=== PATIENT | female | born 1930 | race African-American/Black ===

== ENCOUNTER 2017-01-16 12:58 | Inpatient (IN) | payer OTHER ==
[~2017-01-16] VITALS: Ht 154.9 cm; Wt 88.8 kg
[~2017-01-16 12:58] MED LIST: AMLO10TA2 PO; ASPI-482 PO; CALC0.25 PO; CLON1TAB PO; FERR-26 PO; FURO-68 PO; HYDR-2666 PO; LOSA100T6 PO; LOVA10TA PO; LOVA40TA2 PO; METO-269 PO; SEVE800T9 PO; VIT1TABL71 PO
--- NOTE | 2017-01-16 14:32 | PHYS DOC ---
Past Medical History Past Medical History: Anemia, Diabetes-Type II, High Cholesterol, Hypertension , Renal Failure Additional Past Medical Histor: PVD,OBESITY Past Surgical History: Other Additional Past Surgical Histo: NON CANCER "OVARIAN MASS" , dialysis shunt placement Alcohol Use: None Drug Use: None Adult General Chief Complaint Chief Complaint: DIALYSIS PROBLEM HPI HPI Patient is a 86 year old female who presents with dialysis graft malfunction this week. She had problems at dialysis 4 days ago and was told to get it checked. She notes having problems again 2 days ago. She was unable to make it to outpatient nephrology clinic, so her family brought her here today. She otherwise has no complaints. She denies extremity pain or swelling, chest pain , dyspnea, nausea or vomiting, fever or chills, abdominal pain, dizziness, diarrhea. Review of Systems Review of Systems Constitutional: Denies fever or chills [] Eyes: Denies change in visual acuity, redness, or eye pain [] HENT: Denies nasal congestion or sore throat [] Respiratory: Denies cough or shortness of breath [] Cardiovascular: No additional information not addressed in HPI [] GI: Denies abdominal pain, nausea, vomiting, bloody stools or diarrhea [] : Denies dysuria or hematuria [] Musculoskeletal: Denies back pain or joint pain [] Integument: Denies rash or skin lesions [] Neurologic: Denies headache, focal weakness or sensory changes [] Endocrine: Denies polyuria or polydipsia [] Current Medications Current Medications Current Medications Medications (Trade) Dose Ordered Sig/[facility] Start Time Stop Time Status Last Admin Dose Admin Heparin Sodium (Porcine) (Heparin Sodium) 2,500 unit 1X ONCE 01/16/17 15:45 01/16/17 15:46 DC 01/16/17 16:10 2,500 UNIT Heparin Sodium/ Sodium Chloride 60 unit 1X ONCE 01/16/17 15:45 01/16/17 15:46 DC 01/16/17 16:11 60 UNIT Lidocaine/Sodium Bicarbonate (Buffered Lidocaine 1%) 3 ml 1X ONCE 01/16/17 15:45 01/16/17 15:46 DC 01/16/17 16:11 3 ML Magnesium Sulfate/ Dextrose (Magnesium Sulfate PREMIX 2GM) 50 ml @ 25 mls/hr PRN DAILY PRN 01/16/17 15:30 Allergies Allergies Allergies Coded Allergies Type Severity Reaction Last Updated Verified No Known Drug Allergies 01/03/16 No Physical Exam Physical Exam Constitutional: Well developed, well nourished, no acute distress, non-toxic appearance. [] HENT: Normocephalic, atraumatic, bilateral external ears normal, oropharynx moist, nose normal. [] Eyes: PERRLA, EOMI. [] Neck: Normal range of motion, supple. [] Cardiovascular:Heart rate regular rhythm [] Lungs & Thorax: Bilateral breath sounds clear to auscultation [] Abdomen: Bowel sounds normal, soft, no tenderness. [] Skin: Warm, dry, no erythema, no rash. [] Back: Normal range of motion. [] Extremities: No tenderness, ROM intact. Left forearm dialysis graft with no audible or palpable movement. [] Neurologic: Alert and oriented X 3, normal motor function, normal sensory function, no focal deficits noted. [] Psychologic: Affect normal, judgement normal, mood normal. [] Current Patient Data Vital Signs Vital Signs Date Time Temp Pulse Resp B/P Pulse Ox O2 Delivery O2 Flow Rate FiO2 01/16/17 13:51 193/80 Room Air 01/16/17 13:10 96.8 71 18 96 96.8 Lab Values Laboratory Tests Test 01/16/17 15:05 White Blood Count 6.6x10^3/uL (4.0-11.0) Red Blood Count 4.35x10^6/uL (3.50-5.40) Hemoglobin 12.3g/dL (12.0-15.5) Hematocrit 38.1% (36.0-47.0) Mean Corpuscular Volume 88fL (79-100) Mean Corpuscular Hemoglobin 28pg (25-35) Mean Corpuscular Hemoglobin Concent 32g/dL (31-37) Red Cell Distribution Width 25.0% (11.5-14.5) H Platelet Count 343x10^3/uL (140-400) Neutrophils (%) (Auto) 61% (31-73) Lymphocytes (%) (Auto) 24% (24-48) Monocytes (%) (Auto) 10% (0-9) H Eosinophils (%) (Auto) 3% (0-3) Basophils (%) (Auto) 2% (0-3) Neutrophils # (Auto) 4.0x10^3uL (1.8-7.7) Lymphocytes # (Auto) 1.6x10^3/uL (1.0-4.8) Monocytes # (Auto) 0.7x10^3/uL (0.0-1.1) Eosinophils # (Auto) 0.2x10^3/uL (0.0-0.7) Basophils # (Auto) 0.1x10^3/uL (0.0-0.2) Platelet Estimate Adequate (ADEQUATE) Polychromasia Slight Anisocytosis Mod Target Cells Mod Jeni Cells Few Schistocytes Few Prothrombin Time 12.9SEC (11.7-14.0) Prothrombin Time INR 1.0 (0.8-1.1) PTT 33SEC (24-38) Sodium Level 136mmol/L (136-145) Potassium Level 5.6mmol/L (3.5-5.1) H Chloride Level 95mmol/L (98-107) L Carbon Dioxide Level 28mmol/L (21-32) Anion Gap 13 (6-14) Blood Urea Nitrogen 102mg/dL (7-20) H Creatinine 11.0mg/dL (0.6-1.0) H Estimated GFR (Cockcroft-Gault) 4.0 Glucose Level 94mg/dL (70-99) Calcium Level 9.1mg/dL (8.5-10.1) Laboratory Tests 01/16/17 15:05 Laboratory Tests 01/16/17 15:05 Course & Med Decision Making Course & Med Decision Making Pertinent Labs and Imaging studies reviewed. (See chart for details) She has mild hyperkalemia, but labs are otherwise unremarkable. Discussed case with Dr. Garrison, nephrology, who recommends admission with IR consultation for graft examination. Discussed case with Dr. Rivera, who will admit. Dragon Disclaimer Dragon Disclaimer This electronic medical record was generated, in whole or in part, using a voice recognition dictation system. Departure Departure Impression: Primary Impression: AV graft malfunction Additional Impressions: ESRD (end stage renal disease) on dialysis Hyperkalemia Disposition: ADMITTED INPATIENT Condition: STABLE Referrals: URMILA HAGER MD (PCP) Problem Qualifiers Primary Impression: AV graft malfunction Encounter type: initial encounter Qualified Code: T82.510A - Breakdown ( mechanical) of surgically created arteriovenous fistula, initial encounter WHITE,J. CATALINA MD Jan 16, 2017 14:32
[2017-01-16 15:14] LABS: BASO # 0.1 x10^3/uL (0.0-0.2); BASO % 2 % (0-3); EOS % 3 % (0-3); HEMATOCRIT 38.1 % (36.0-47.0); HEMOGLOBIN 12.3 g/dL (12.0-15.5); LYMPH # 1.6 x10^3/uL (1.0-4.8); LYMPH % 24 % (24-48); MEAN CORPUSCULAR HEMOGLOBIN 28 pg (25-35); MEAN CORPUSCULAR HGB CONC 32 g/dL (31-37); MEAN CORPUSCULAR VOLUME 88 fL (79-100); MONO % 10 % (0-9); NEUT % 61 % (31-73); PLATELET COUNT 343 x10^3/uL (140-400); RED BLOOD COUNT 4.35 x10^6/uL (3.50-5.40); WHITE BLOOD COUNT 6.6 x10^3/uL (4.0-11.0)
--- NOTE | 2017-01-16 15:23 | PDOC2 ---
CONSULT Date of Consult Date of Consult DATE: 01/16/17 TIME: 15:15 Reason for Consult Reason for Consult: ESRD and Clotted/ non-functional AV Access Referring Physician Referring Physician: ANAIS Identification/Chief Complaint Chief Complaint none from pt Problems: Source Source: Caregiver, Chart review, Patient History of Present Illness Reason for Visit: as dictated Past Medical History Cardiovascular: HTN, Hyperlipidemia Heme/Onc: Anemia NOS Renal/: Chronic renal insuff Endocrine: Diabetes, Hyperparathyroidism Family History Family History: No Significant Social History ALCOHOL: none Lives: with Family Current Problem List Problem List Problems Medical Problems: (1) AV graft malfunction Status: Acute (2) ESRD (end stage renal disease) on dialysis Status: Acute Current Medications Current Medications Active Scripts Active Reported Clorpres 0.2-15 Tablet (Clonidine Hcl/Chlorthalidone) 1 Each Tablet 1 Each PO TID Renvela (Sevelamer Carbonate) 800 Mg Tablet 2 Tab PO TID Lovastatin 10 Mg Tablet 10 Mg PO HS Losartan Potassium 100 Mg Tablet 100 Mg PO DAILY Amlodipine Besylate 10 Mg Tablet 10 Mg PO DAILY Ferrous Sulfate 325 Mg Tablet 1 Tab PO DAILY Lasix (Furosemide) 40 Mg Tablet 1 Tab PO DAILY Aspir 81 (Aspirin) 81 Mg Tablet.dr 1 Tab PO DAILY Allergies Allergies: Coded Allergies: No Known Drug Allergies (Unverified , 01/03/16) ROS Review of System -ve x 14 systems as reviewed Physical Exam Physical Exam General Appearance: Awake Alert Oriented x 3 In no Distress Eyes: VIsion Unchanged Conjunctiva Normal EN: No EN Drainage Mucous Memb. moist Neck: no JVD no JVP Supple no Thyromegaly CVS: S1 S2 + Murmur No Gallop No Rub + Edema Resp: no Rales no Rhonchi no Acc. Muscle use GI: BAS +ve NO Bruit Non Tender Non Distended; morbidly obese : no CVA tenderness; no Suprapubic Tenderness SKIN: no Rashes Breast Exam deferred Mu.Sk: Adequate ROM no Muscle Atrophy Heme: Unable to palpate Obvious LAD no Splenomegaly NEURO: Good Strength and Tone Cranial Nerves II - XII grossly intact Psych: not Depressed no Active hallucination Vital Signs Vital Signs Date Time Temp Pulse Resp B/P Pulse Ox O2 Delivery O2 Flow Rate FiO2 01/16/17 13:10 96.8 71 18 202/64 96 Room Air 96.8 Assessment & Plan ESRD: Await labs - may need temp line and HD if K Is up. otherwise elective HD in am non-functioning AV Access - unable to declott today; Temp line then HD if needed Anemia: Epogen if needed Transfuse with next HD as needed. HTN: reval after home BP Meds are restarted. Current BP meds reviewed. See orders for changes. Bone & Mineral: check phos and alter binderregimen as needed Discussed Plan of Care and prognosis etc. at length with family and with VELIA Barron MD Jan 16, 2017 15:23
[2017-01-16 15:24] LABS: PROTHROMBIN TIME PATIENT 12.9 SEC (11.7-14.0)
[2017-01-16] MEDS ORDERED: HEPARIN for IV BOLUS 10,000 UNIT/10 ML VIAL. ONE (15:29)
[2017-01-16] MEDS ORDERED: MAGNESIUM SULFATE 2GM 50 ML IV PRN (15:30)
[2017-01-16] MEDS ORDERED: LIDOCAINE 1% / SOD BICARB 8.4% 20 ML VIAL. IJ ONE ×2 (15:30→15:45)
[2017-01-16 15:53] LABS: CALCIUM 9.1 mg/dL (8.5-10.1); POTASSIUM 5.6 mmol/L (3.5-5.1)
--- NOTE | 2017-01-16 16:13 | PDOC ---
Exam Supervisor Decorating Supervisor Decorating Nickie Weatherstrip Machine Operator Weatherstrip Machine Operator Sheldon Ovalle Pre-Procedure Diagnosis Pre-Procedure Diagnosis 86 YO female with ESRD and nonfunctioning left forearm AVG. Post-Procedure Diagnosis Post-Procedure Diagnosis Same Procedure Performed Procedure Performed Bedside ED sono guided temp HDC insertion Type of Anesthesia Type of Anesthesia Local Estimated Blood Loss EBL: Minimal Drain/Tubes Drains/Tubes Right IJ 14F 15cm Schon temp HDC Condition of Patient Condition of Patient Stable. No apparent complication. Disposition Disposition STAT pCXR requested fro Temp HDC position. Full report to follow. BENITA DYSON MD Jan 16, 2017 16:13
[2017-01-16] MEDS ORDERED: ACETAMINOPHEN 325 MG TABLET. PO PRN ×3 (16:15→17:30)
[2017-01-16] MEDS ORDERED: ONDANSETRON PF 4 MG/2 ML VIAL. IV PRN ×3 (16:15→17:30)
--- NOTE | 2017-01-16 16:16 | PDOC1 ---
IR Pre-Procedure H&P-Dr. Grimaldo H&P Update No significant change from Dr. Garrison's Renal consult H&P done earlier this afternoon. ESRD with nonfunctioning AVG. Temp HDC today in ED. AVG intervention Thursday in IR. BENITA DYSON MD Jan 16, 2017 16:16
[2017-01-16 16:23] LABS: ANISOCYTOSIS MOD; PLT ESTIMATE ADEQUATE (ADEQUATE); POLYCHROMASIA SLIGHT
[2017-01-16 16:24] LABS: BURR CELLS FEW; SCHISTOCYTES FEW; TARGET CELLS MOD
--- NOTE | 2017-01-16 16:35 | RAD ---
Portable chest, 01/16/2017: History: Check dialysis catheter placement Comparison is made to a study from 10/27/2015. A right jugular dialysis type catheter has been inserted extending to the level of the atriocaval junction. The heart is at the upper limits of normal in size. There is calcific plaquing and tortuosity of the thoracic aorta. The pulmonary vascularity is normal. Calcified granulomata are present lungs. No acute infiltrates are seen. There is no evidence of pleural fluid or pneumothorax.. IMPRESSION: 1. Interval insertion of a right jugular dialysis type catheter in satisfactory position. 2. Borderline cardiomegaly and aortic atherosclerosis.
[2017-01-16] MEDS ORDERED: HYDROCODONE/APAP 5/325MG TABLET. PO PRN ×2 (17:30)
[2017-01-16] MEDS ORDERED: hydrALAZINE 20 MG/ML VIAL. IVP PRN ×2 (17:30)
[2017-01-16] MEDS ORDERED: ALBUTEROL SULFATE 2.5 MG/3 ML NEBU. NEB PRN ×2 (17:30)
--- NOTE | 2017-01-16 17:40 | RAD ---
Left upper extremity AV shunt evaluation, 01/16/2017: History: Nonfunctioning AV fistula Duplex evaluation of the left forearm AV shunt was performed. The shunt anatomy is complex and not clearly demonstrated by the radiology ct technologist. There is lack of blood flow within a portion of the shunt compatible with thrombosis. A high velocity was identified at what is probably the arterial anastomosis up to 350 cm/s. This suggests moderate stenosis at that level. There is also an oval-shaped complex fluid collection measuring approximately 3 x 3 x 1.3 cm in the forearm most likely representing a hematoma. IMPRESSION: Thrombosed AV shunt as described above. The precise shunt anatomy on these images is unclear. Rescanning of the patient tomorrow morning when a radiologist is available to directly assist in the study is suggested for further evaluation, if clinically indicated.
--- NOTE | 2017-01-16 19:08 | HP ---
ADMIT DATE: 01/16/2017 CHIEF COMPLAINT: Nonfunctioning AV graft, missed hemodialysis. HISTORY OF PRESENT ILLNESS: An 86-year-old female patient with prior history of end-stage renal disease on hemodialysis with hypertension, diabetes who was having problems with AV graft. She is not able to complete her hemodialysis due to nonfunctioning AV access. The patient could not complete her hemodialysis today. Her daughter brought her to the ER. The patient was needing emergent hemodialysis catheter for hemodialysis and she needs further intervention for AV graft in the hospital. At the time of examination, the patient denies any symptoms. Resting comfortable in the bed. She did say that she missed her home medications in the morning. PAST MEDICAL HISTORY: Please see my electronic H and P. REVIEW OF SYSTEMS: Please see my electronic H and P. LABORATORY DATA: WBC 6.6, hemoglobin 12.3, MCV is 88, platelets 343. Chemistry: Sodium is 136, potassium 5.6, chloride is 95, carbon dioxide 28, gap is 13, BUN 102, creatinine 11. Coagulation panel: PT/INR within normal range. IMAGING STUDIES: Left upper extremity arterial Doppler pending. Chest x-ray: Interval insertion of right jugular dialysis type catheter, ____. ASSESSMENT AND PLAN: 1. Nonfunctioning arteriovenous graft, left side. 2. End-stage renal disease, on hemodialysis. 3. Hypertension, not controlled. 4. Diabetes mellitus, non-insulin dependent. 5. Anemia of chronic disease. 6. Hyperparathyroidism. PLAN: 1. She has been admitted to the hospital for emergency hemodialysis. She had a temporary hemodialysis catheter placed by Interventional Radiology and scheduled for hemodialysis as per nephrology. 2. Nephrology has been consulted and ordered left upper extremity arterial Doppler, results pending. 3. Home medications needs to be verified. Discussed with RN. Family needs to bring home medications. 4. P.r.n. hydralazine for hypertension. Currently blood pressure is coming down to 160. The patient is asymptomatic. 5. Supportive care. 6. Sliding scale insulin for hyperglycemia. 7. Possible arteriovenous graft intervention on Thursday. MANJEET ALMONTE MD DR: RONNY/ana maria JOB#: [id number] / [id number]
[2017-01-16] MEDS ORDERED: IV NORMAL SALINE 1000ML BAG 1,000 ML IV PRN (20:20)
[2017-01-16] MEDS ORDERED: 0.9 % SODIUM CHLORIDE 10 ML DISP.SYRIN. IV PRN ×2 (20:30)
[2017-01-16] MEDS ORDERED: DIALYSIS PATIENT. MC PRN ×2 (20:30)
[2017-01-16 21:33] VITALS: BP 134/59
--- NOTE | 2017-01-16 22:05 | PDOC1 ---
History and Physical Past Medical History Cardiovascular: HTN, Hyperlipidemia Heme/Onc: Anemia NOS Renal/: Chronic renal insuff Endocrine: Diabetes, Hyperparathyroidism Family History Family History: No Significant Social History ALCOHOL: none Current Problem List Problem List Problems Medical Problems: (1) AV graft malfunction Status: Acute (2) ESRD (end stage renal disease) on dialysis Status: Acute (3) Hyperkalemia Status: Acute Current Medications Current Medications Current Medications Medications (Trade) Dose Ordered Sig/[place] Start Time Stop Time Status Last Admin Dose Admin Acetaminophen (Tylenol) 325 mg PRN Q6HRS PRN 01/16/17 17:30 UNV Acetaminophen/ Hydrocodone Bitart (Lortab 5/325) 1 tab PRN Q6HRS PRN 01/16/17 17:30 UNV Albuterol Sulfate (Ventolin Neb Soln) 2.5 mg PRN Q4HRS PRN 01/16/17 17:30 Albuterol Sulfate 2.5 mg 2.5 mg PRN Q4HRS PRN 01/16/17 17:30 UNV Heparin Sodium (Porcine) (Heparin Sodium) 2,500 unit 1X ONCE 01/16/17 15:45 01/16/17 15:46 DC 01/16/17 16:10 2,500 UNIT Heparin Sodium/ Sodium Chloride 60 unit 1X ONCE 01/16/17 15:45 01/16/17 15:46 DC 01/16/17 16:11 60 UNIT Hydralazine HCl (Apresoline) 10 mg PRN Q4HRS PRN 01/16/17 17:30 UNV Info (PHARMACY MONITORING -- do not chart) 1 each PRN DAILY PRN 01/16/17 20:30 UNV Lidocaine/Sodium Bicarbonate (Buffered Lidocaine 1%) 3 ml 1X ONCE 01/16/17 15:45 01/16/17 15:46 DC 01/16/17 16:11 3 ML Magnesium Sulfate/ Dextrose (Magnesium Sulfate PREMIX 2GM) 50 ml @ 25 mls/hr PRN DAILY PRN 01/16/17 15:30 Ondansetron HCl (Zofran) 4 mg PRN Q8HRS PRN 01/16/17 17:30 UNV Sodium Chloride (Iv Sodium Chloride 0.9% 1000ml Bag) 1,000 ml @ 1,000 mls/hr Q1H PRN 01/16/17 20:20 01/17/17 02:19 Sodium Chloride (Normal Saline Flush) 10 ml 1X PRN PRN 01/16/17 20:30 01/17/17 20:29 Allergies Allergies Allergies Coded Allergies Type Severity Reaction Last Updated Verified No Known Drug Allergies 01/03/16 No ROS Review of System CONSTITUTIONAL: No fever or chills EYES: No recent changes SKIN: No rash or itching CARDIOVASCULAR: No chest pain, syncope, palpitations, or edema RESPIRATORY: No SOB or cough GASTROINTESTINAL: No nausea, vomiting or abdominal pain NEUROLOGICAL: No headaches or weakness ENDOCRINE: No cold or heat intolerance GENITOURINARY: No urgency or frequency of urination MUSCULOSKELETAL: No back pain or joint pain LYMPHATICS: No enlarged lymph nodes PSYCHIATRIC: No anxiety or depression Physical Exam Physical Exam GEN.: No apparent distress. Alert and oriented. HEENT: Head is normocephalic, atraumatic NECK: Supple. no jvd LUNGS: Clear to auscultation. HEART: RRR, S1, S2 present. Peripheral pulses intact ABDOMEN: Soft, nontender. Positive bowel sounds. EXTREMITIES: Without any cyanosis. left upper extremity graft pulses not present in certain areas. NEUROLOGIC: Normal speech, normal tone PSYCHIATRIC: Normal affect, normal mood. SKIN: No ulcerations Vitals Vitals Vital Signs Date Time Temp Pulse Resp B/P Pulse Ox O2 Delivery O2 Flow Rate FiO2 01/16/17 21:33 98.2 83 18 134/59 93 Room Air 98.2 Labs Labs Laboratory Tests Test 01/16/17 15:05 01/16/17 17:28 White Blood Count 6.6x10^3/uL (4.0-11.0) Red Blood Count 4.35x10^6/uL (3.50-5.40) Hemoglobin 12.3g/dL (12.0-15.5) Hematocrit 38.1% (36.0-47.0) Mean Corpuscular Volume 88fL (79-100) Mean Corpuscular Hemoglobin 28pg (25-35) Mean Corpuscular Hemoglobin Concent 32g/dL (31-37) Red Cell Distribution Width 25.0% (11.5-14.5) Platelet Count 343x10^3/uL (140-400) Neutrophils (%) (Auto) 61% (31-73) Lymphocytes (%) (Auto) 24% (24-48) Monocytes (%) (Auto) 10% (0-9) Eosinophils (%) (Auto) 3% (0-3) Basophils (%) (Auto) 2% (0-3) Neutrophils # (Auto) 4.0x10^3uL (1.8-7.7) Lymphocytes # (Auto) 1.6x10^3/uL (1.0-4.8) Monocytes # (Auto) 0.7x10^3/uL (0.0-1.1) Eosinophils # (Auto) 0.2x10^3/uL (0.0-0.7) Basophils # (Auto) 0.1x10^3/uL (0.0-0.2) Platelet Estimate Adequate (ADEQUATE) Polychromasia Slight Anisocytosis Mod Target Cells Mod [place] Cells Few Schistocytes Few Prothrombin Time 12.9SEC (11.7-14.0) Prothromb Time International Ratio 1.0 (0.8-1.1) Activated Partial Thromboplast Time 33SEC (24-38) Sodium Level 136mmol/L (136-145) Potassium Level 5.6mmol/L (3.5-5.1) Chloride Level 95mmol/L (98-107) Carbon Dioxide Level 28mmol/L (21-32) Anion Gap 13 (6-14) Blood Urea Nitrogen 102mg/dL (7-20) Creatinine 11.0mg/dL (0.6-1.0) Estimated GFR (Cockcroft-Gault) 4.0 Glucose Level 94mg/dL (70-99) Calcium Level 9.1mg/dL (8.5-10.1) Glucose (Fingerstick) 77mg/dL (70-99) Laboratory Tests Test 01/16/17 15:05 01/16/17 17:28 White Blood Count 6.6x10^3/uL (4.0-11.0) Red Blood Count 4.35x10^6/uL (3.50-5.40) Hemoglobin 12.3g/dL (12.0-15.5) Hematocrit 38.1% (36.0-47.0) Mean Corpuscular Volume 88fL (79-100) Mean Corpuscular Hemoglobin 28pg (25-35) Mean Corpuscular Hemoglobin Concent 32g/dL (31-37) Red Cell Distribution Width 25.0% (11.5-14.5) Platelet Count 343x10^3/uL (140-400) Neutrophils (%) (Auto) 61% (31-73) Lymphocytes (%) (Auto) 24% (24-48) Monocytes (%) (Auto) 10% (0-9) Eosinophils (%) (Auto) 3% (0-3) Basophils (%) (Auto) 2% (0-3) Neutrophils # (Auto) 4.0x10^3uL (1.8-7.7) Lymphocytes # (Auto) 1.6x10^3/uL (1.0-4.8) Monocytes # (Auto) 0.7x10^3/uL (0.0-1.1) Eosinophils # (Auto) 0.2x10^3/uL (0.0-0.7) Basophils # (Auto) 0.1x10^3/uL (0.0-0.2) Platelet Estimate Adequate (ADEQUATE) Polychromasia Slight Anisocytosis Mod Target Cells Mod Jeni Cells Few Schistocytes Few Prothrombin Time 12.9SEC (11.7-14.0) Prothromb Time International Ratio 1.0 (0.8-1.1) Activated Partial Thromboplast Time 33SEC (24-38) Sodium Level 136mmol/L (136-145) Potassium Level 5.6mmol/L (3.5-5.1) Chloride Level 95mmol/L (98-107) Carbon Dioxide Level 28mmol/L (21-32) Anion Gap 13 (6-14) Blood Urea Nitrogen 102mg/dL (7-20) Creatinine 11.0mg/dL (0.6-1.0) Estimated GFR (Cockcroft-Gault) 4.0 Glucose Level 94mg/dL (70-99) Calcium Level 9.1mg/dL (8.5-10.1) Glucose (Fingerstick) 77mg/dL (70-99) VTE Prophylaxis Ordered VTE Prophylaxis Devices: No VTE Pharmacological Prophylaxi: No ELIZABETH HINOJOSA MD Jan 16, 2017 22:04
[2017-01-17] VITALS (7 sets, daily range): BP systolic 102–154; BP diastolic 49–68
--- NOTE | 2017-01-17 05:15 | CONS ---
DATE OF CONSULTATION: PRIMARY PHYSICIAN: ____ in the ER. REASON FOR CONSULTATION: Dysfunctional AV access. HISTORY OF PRESENT ILLNESS: The patient is a pleasant 86-year-old -[place]ian female who I followed for ESRD needs. She has had difficulty with her AV access function at outpatient dialysis. [facility]; however, had transportation issues and was unable to get there in a timely manner. Her family could only bring her to [facility] and hence was brought here on Thursday afternoon. She has missed dialysis today because of the same. There is an area of swelling overlying her left AV graft. She does appear to have a pulse as well as a bruit on her AV graft on her left forearm. However, accessing the graft has been difficult and the graft has been flowing poorly. For this reason, she will be admitted to the hospital. The plan is for ____ next week. A temporary catheter may be required if her potassium is elevated today or she shows signs of severe metabolic acidosis. Labs have been drawn through the ER and are currently pending. I discussed this plan with the patient. VELIA AMARAL MD DR: DIONTE/ana maria JOB#: [id number] / [id number]
[2017-01-17 07:45] LABS: RED BLOOD COUNT 4.45 x10^6/uL (3.50-5.40)
[2017-01-17 07:46] LABS: BASO # 0.1 x10^3/uL (0.0-0.2); BASO % 1 % (0-3); EOS % 3 % (0-3); HEMOGLOBIN 12.5 g/dL (12.0-15.5); LYMPH # 0.9 x10^3/uL (1.0-4.8); LYMPH % 15 % (24-48); MEAN CORPUSCULAR HEMOGLOBIN 28 pg (25-35); MEAN CORPUSCULAR HGB CONC 32 g/dL (31-37); MEAN CORPUSCULAR VOLUME 87 fL (79-100); MONO % 11 % (0-9); NEUT % 71 % (31-73); PLATELET COUNT 302 x10^3/uL (140-400); RED CELL DISTRIBUTION WIDTH 25.5 % (11.5-14.5)
[2017-01-17 07:57] LABS: ALBUMIN 3.5 g/dL (3.4-5.0); CALCIUM 8.6 mg/dL (8.5-10.1); CREATININE 8.3 mg/dL (0.6-1.0); GFR 5.6; PHOSPHORUS 6.2 mg/dL (2.6-4.7)
--- NOTE | 2017-01-17 10:58 | RAD ---
Bedside ultrasound-guided right IJ temporary hemodialysis catheter insertion Indication: 86-year-old female with end stage renal disease and with nonfunctioning left forearm AV graft. Hyperkalemia. Temporary dialysis catheter insertion has been requested by renal. Anesthesia: Local only Sterility: All elements of maximal sterile barrier technique, including the use of a cap, mask, sterile gown, sterile gloves, large sterile sheet, appropriate hand hygiene, and 2% chlorhexidine for cutaneous antisepsis (or acceptable alternative antiseptic per current guidelines) were utilized. Procedure: Informed consent was obtained from the patient. This procedure was performed bedside in the emergency department. Preliminary ultrasound examination of right neck revealed wide patency of right internal jugular vein, which was documented with a single hard copy ultrasound image. Right neck was then prepped and draped in the usual sterile fashion, utilizing all elements of maximal sterile barrier technique, as described above. Using aseptic technique, local anesthesia, direct ultrasound guidance, and the micropuncture system, successful percutaneous entry was achieved into right internal jugular vein. The right IJ venostomy tract was then dilated and a 14 Y[place]uba 15 cm temporary hemodialysis catheter was easily advanced centrally over an angiographic guidewire. The catheter was documented to flush and aspirate normally, was packed, and was secured at the right neck exit site utilizing suture and sterile dressing. Patient tolerated the procedure well without apparent complication. A stat portable chest x-ray was requested for line position. Impression: Successful, uneventful ultrasound guided placement of right IJ 14 Yoruba 15 cm temporary hemodialysis catheter, bedside in the emergency department, as described.
[2017-01-17] MEDS ORDERED: CALC667T PO (11:16)
[2017-01-17] MEDS ORDERED: CINA30TA PO (11:16)
[2017-01-17] MEDS ORDERED: ATOR10TA60 PO (11:16)
--- NOTE | 2017-01-17 16:01 | PDOC ---
PROGRESS NOTES Chief Complaint Chief Complaint cc: non function AV graft A/P 1. Nonfunctioning arteriovenous graft, left side. 2. End-stage renal disease, on hemodialysis. 3. Hypertension, not controlled. 4. Diabetes mellitus, non-insulin dependent. 5. Anemia of chronic disease. 6. Hyperparathyroidism. Plan HD per nephrology SSI Home medications continued PRN hydralazine IR Consulted, Possible arteriovenous graft intervention on Thursday. Labs reviwed, continue current care. Vitals Vitals Vital Signs Date Time Temp Pulse Resp B/P Pulse Ox O2 Delivery O2 Flow Rate FiO2 01/17/17 08:00 Room Air 01/17/17 07:00 97.6 70 22 154/67 98 97.6 Physical Exam General: Alert, Oriented X3 Heart: Normal S1, Normal S2 Lungs: Clear Abdomen: Normal bowel sounds, Soft Labs LABS Laboratory Tests Test 01/16/17 17:28 01/17/17 07:00 01/17/17 07:21 01/17/17 11:12 Glucose (Fingerstick) 77mg/dL (70-99) 111mg/dL (70-99) 121mg/dL (70-99) White Blood Count 6.0x10^3/uL (4.0-11.0) Red Blood Count 4.45x10^6/uL (3.50-5.40) Hemoglobin 12.5g/dL (12.0-15.5) Hematocrit 39.0% (36.0-47.0) Mean Corpuscular Volume 87fL (79-100) Mean Corpuscular Hemoglobin 28pg (25-35) Mean Corpuscular Hemoglobin Concent 32g/dL (31-37) Red Cell Distribution Width 25.5% (11.5-14.5) Platelet Count 302x10^3/uL (140-400) Neutrophils (%) (Auto) 71% (31-73) Lymphocytes (%) (Auto) 15% (24-48) Monocytes (%) (Auto) 11% (0-9) Eosinophils (%) (Auto) 3% (0-3) Basophils (%) (Auto) 1% (0-3) Neutrophils # (Auto) 4.2x10^3uL (1.8-7.7) Lymphocytes # (Auto) 0.9x10^3/uL (1.0-4.8) Monocytes # (Auto) 0.6x10^3/uL (0.0-1.1) Eosinophils # (Auto) 0.2x10^3/uL (0.0-0.7) Basophils # (Auto) 0.1x10^3/uL (0.0-0.2) Sodium Level 135mmol/L (136-145) Potassium Level 5.0mmol/L (3.5-5.1) Chloride Level 97mmol/L (98-107) Carbon Dioxide Level 27mmol/L (21-32) Anion Gap 11 (6-14) Blood Urea Nitrogen 63mg/dL (7-20) Creatinine 8.3mg/dL (0.6-1.0) Estimated GFR (Cockcroft-Gault) 5.6 Glucose Level 103mg/dL (70-99) Calcium Level 8.6mg/dL (8.5-10.1) Phosphorus Level 6.2mg/dL (2.6-4.7) Magnesium Level 2.4mg/dL (1.8-2.4) Albumin 3.5g/dL (3.4-5.0) Assessment and Plan Assessmemt and Plan Problems Medical Problems: (1) AV graft malfunction Status: Acute (2) ESRD (end stage renal disease) on dialysis Status: Acute (3) Hyperkalemia Status: Acute Problems: Comment Review of Relevant I have reviewed the following items vicente (where applicable) has been applied. Labs Laboratory Tests Test 01/16/17 15:05 01/16/17 17:28 01/17/17 07:00 01/17/17 07:21 White Blood Count 6.6x10^3/uL (4.0-11.0) 6.0x10^3/uL (4.0-11.0) Red Blood Count 4.35x10^6/uL (3.50-5.40) 4.45x10^6/uL (3.50-5.40) Hemoglobin 12.3g/dL (12.0-15.5) 12.5g/dL (12.0-15.5) Hematocrit 38.1% (36.0-47.0) 39.0% (36.0-47.0) Mean Corpuscular Volume 88fL (79-100) 87fL (79-100) Mean Corpuscular Hemoglobin 28pg (25-35) 28pg (25-35) Mean Corpuscular Hemoglobin Concent 32g/dL (31-37) 32g/dL (31-37) Red Cell Distribution Width 25.0% (11.5-14.5) 25.5% (11.5-14.5) Platelet Count 343x10^3/uL (140-400) 302x10^3/uL (140-400) Neutrophils (%) (Auto) 61% (31-73) 71% (31-73) Lymphocytes (%) (Auto) 24% (24-48) 15% (24-48) Monocytes (%) (Auto) 10% (0-9) 11% (0-9) Eosinophils (%) (Auto) 3% (0-3) 3% (0-3) Basophils (%) (Auto) 2% (0-3) 1% (0-3) Neutrophils # (Auto) 4.0x10^3uL (1.8-7.7) 4.2x10^3uL (1.8-7.7) Lymphocytes # (Auto) 1.6x10^3/uL (1.0-4.8) 0.9x10^3/uL (1.0-4.8) Monocytes # (Auto) 0.7x10^3/uL (0.0-1.1) 0.6x10^3/uL (0.0-1.1) Eosinophils # (Auto) 0.2x10^3/uL (0.0-0.7) 0.2x10^3/uL (0.0-0.7) Basophils # (Auto) 0.1x10^3/uL (0.0-0.2) 0.1x10^3/uL (0.0-0.2) Platelet Estimate Adequate (ADEQUATE) Polychromasia Slight Anisocytosis Mod Target Cells Mod [place] Cells Few Schistocytes Few Prothrombin Time 12.9SEC (11.7-14.0) Prothromb Time International Ratio 1.0 (0.8-1.1) Activated Partial Thromboplast Time 33SEC (24-38) Sodium Level 136mmol/L (136-145) 135mmol/L (136-145) Potassium Level 5.6mmol/L (3.5-5.1) 5.0mmol/L (3.5-5.1) Chloride Level 95mmol/L (98-107) 97mmol/L (98-107) Carbon Dioxide Level 28mmol/L (21-32) 27mmol/L (21-32) Anion Gap 13 (6-14) 11 (6-14) Blood Urea Nitrogen 102mg/dL (7-20) 63mg/dL (7-20) Creatinine 11.0mg/dL (0.6-1.0) 8.3mg/dL (0.6-1.0) Estimated GFR (Cockcroft-Gault) 4.0 5.6 Glucose Level 94mg/dL (70-99) 103mg/dL (70-99) Calcium Level 9.1mg/dL (8.5-10.1) 8.6mg/dL (8.5-10.1) Glucose (Fingerstick) 77mg/dL (70-99) 111mg/dL (70-99) Phosphorus Level 6.2mg/dL (2.6-4.7) Magnesium Level 2.4mg/dL (1.8-2.4) Albumin 3.5g/dL (3.4-5.0) Test 01/17/17 11:12 Glucose (Fingerstick) 121mg/dL (70-99) Laboratory Tests Test 01/16/17 17:28 01/17/17 07:00 01/17/17 07:21 01/17/17 11:12 Glucose (Fingerstick) 77mg/dL (70-99) 111mg/dL (70-99) 121mg/dL (70-99) White Blood Count 6.0x10^3/uL (4.0-11.0) Red Blood Count 4.45x10^6/uL (3.50-5.40) Hemoglobin 12.5g/dL (12.0-15.5) Hematocrit 39.0% (36.0-47.0) Mean Corpuscular Volume 87fL (79-100) Mean Corpuscular Hemoglobin 28pg (25-35) Mean Corpuscular Hemoglobin Concent 32g/dL (31-37) Red Cell Distribution Width 25.5% (11.5-14.5) Platelet Count 302x10^3/uL (140-400) Neutrophils (%) (Auto) 71% (31-73) Lymphocytes (%) (Auto) 15% (24-48) Monocytes (%) (Auto) 11% (0-9) Eosinophils (%) (Auto) 3% (0-3) Basophils (%) (Auto) 1% (0-3) Neutrophils # (Auto) 4.2x10^3uL (1.8-7.7) Lymphocytes # (Auto) 0.9x10^3/uL (1.0-4.8) Monocytes # (Auto) 0.6x10^3/uL (0.0-1.1) Eosinophils # (Auto) 0.2x10^3/uL (0.0-0.7) Basophils # (Auto) 0.1x10^3/uL (0.0-0.2) Sodium Level 135mmol/L (136-145) Potassium Level 5.0mmol/L (3.5-5.1) Chloride Level 97mmol/L (98-107) Carbon Dioxide Level 27mmol/L (21-32) Anion Gap 11 (6-14) Blood Urea Nitrogen 63mg/dL (7-20) Creatinine 8.3mg/dL (0.6-1.0) Estimated GFR (Cockcroft-Gault) 5.6 Glucose Level 103mg/dL (70-99) Calcium Level 8.6mg/dL (8.5-10.1) Phosphorus Level 6.2mg/dL (2.6-4.7) Magnesium Level 2.4mg/dL (1.8-2.4) Albumin 3.5g/dL (3.4-5.0) Medications Current Medications Magnesium Sulfate/ Dextrose (Magnesium Sulfate PREMIX 2GM) 50 ml @ 25 mls/hr PRN DAILY PRN IV for Mag < 1.7 on am labs; Start 01/16/17 at 15:30 Heparin Sodium (Porcine) (Heparin Sodium) 10,000 unit STK-MED ONCE .ROUTE ; Start 01/16/17 at 15:29; Stop 01/16/17 at 15:30; Status DC Lidocaine/Sodium Bicarbonate 20 ml 20 ml STK-MED ONCE IJ ; Start 01/16/17 at 15: 30; Stop 01/16/17 at 15:31; Status DC Heparin Sodium/ Sodium Chloride 500 ml @ As Directed STK-MED ONCE .ROUTE ; Start 01/16/17 at 15:30; Stop 01/16/17 at 15:31; Status DC Lidocaine/Sodium Bicarbonate (Buffered Lidocaine 1%) 3 ml 1X ONCE IJ Last administered on 01/16/17 16:11; Start 01/16/17 at 15:45; Stop 01/16/17 at 15:46 ; Status DC Heparin Sodium/ Sodium Chloride 60 unit 1X ONCE IV Last administered on 16:11; Start 01/16/17 at 15:45; Stop 01/16/17 at 15:46; Status DC Heparin Sodium (Porcine) (Heparin Sodium) 2,500 unit 1X ONCE INT CAT Last administered on 01/16/17 16:10; Start 01/16/17 at 15:45; Stop 01/16/17 at 15:46 ; Status DC Ondansetron HCl (Zofran) 4 mg PRN Q8HRS PRN IV NAUSEA/VOMITING; Start 01/16/17 at 16:15; Stop 01/17/17 at 15:46; Status DC Acetaminophen (Tylenol) 650 mg PRN Q4HRS PRN PO FEVER; Start 01/16/17 at 16:15 ; Stop 01/17/17 at 16:14 Acetaminophen (Tylenol) 325 mg PRN Q6HRS PRN PO MILD PAIN / TEMP; Start at 17:30 Acetaminophen/ Hydrocodone Bitart (Lortab 5/325) 1 tab PRN Q6HRS PRN PO MODERATE TO SEVERE PAIN; Start 01/16/17 at 17:30 Hydralazine HCl (Apresoline) 10 mg PRN Q4HRS PRN IVP ELEVATED BP, SEE COMMENTS ; Start 01/16/17 at 17:30 Ondansetron HCl (Zofran) 4 mg PRN Q8HRS PRN IV NAUSEA/VOMITING; Start 01/16/17 at 17:30 Albuterol Sulfate (Ventolin Neb Soln) 2.5 mg PRN Q4HRS PRN NEB SHORTNESS OF BREATH; Start 01/16/17 at 17:30 Acetaminophen (Tylenol) 325 mg PRN Q6HRS PRN PO MILD PAIN / TEMP; Start at 17:30; Status UNV Acetaminophen/ Hydrocodone Bitart (Lortab 5/325) 1 tab PRN Q6HRS PRN PO MODERATE TO SEVERE PAIN; Start 01/16/17 at 17:30; Status UNV Hydralazine HCl (Apresoline) 10 mg PRN Q4HRS PRN IVP ELEVATED BP, SEE COMMENTS ; Start 01/16/17 at 17:30; Status UNV Ondansetron HCl (Zofran) 4 mg PRN Q8HRS PRN IV NAUSEA/VOMITING; Start 01/16/17 at 17:30; Status UNV Albuterol Sulfate 2.5 mg 2.5 mg PRN Q4HRS PRN NEB SHORTNESS OF BREATH; Start at 17:30; Status UNV Sodium Chloride (Iv Sodium Chloride 0.9% 1000ml Bag) 1,000 ml @ 1,000 mls/hr Q1H PRN IV hypotension; Start 01/16/17 at 20:20; Stop 01/17/17 at 02:19; Status DC Sodium Chloride (Normal Saline Flush) 10 ml 1X PRN PRN IV AP catheter pack; Start 01/16/17 at 20:30; Stop 01/17/17 at 20:29 Sodium Chloride (Normal Saline Flush) 10 ml 1X PRN PRN IV HASH SLINGER catheter pack; Start 01/16/17 at 20:30; Stop 01/17/17 at 20:29 Info (PHARMACY MONITORING -- do not chart) 1 each PRN DAILY PRN MC SEE COMMENTS ; Start 01/16/17 at 20:30 Info (PHARMACY MONITORING -- do not chart) 1 each PRN DAILY PRN MC SEE COMMENTS ; Start 01/16/17 at 20:30; Status UNV Amlodipine Besylate (Norvasc) 10 mg DAILY PO ; Start 01/18/17 at 09:00 Aspirin (Ecotrin) 81 mg DAILY PO ; Start 01/18/17 at 09:00 Atorvastatin Calcium (Lipitor) 10 mg HS PO ; Start 01/17/17 at 21:00 Cinacalcet (Sensipar) 30 mg DAILYWSUP PO ; Start 01/17/17 at 17:00 Ferrous Sulfate (Feosol) 325 mg DAILY PO ; Start 01/18/17 at 09:00 Furosemide (Lasix) 40 mg DAILY PO ; Start 01/18/17 at 09:00 Calcium Acetate (Phoslo) 1,334 mg TIDWMEALS PO ; Start 01/17/17 at 17:00 Clonidine HCl (Catapres) 0.2 mg TID PO ; Start 01/17/17 at 15:45 Losartan Potassium (Cozaar) 100 mg DAILY PO ; Start 01/18/17 at 09:00 Atorvastatin Calcium (Lipitor) 5 mg QHS PO ; Start 01/17/17 at 21:00; Stop 01/17 at 21:00; Status DC Chlorthalidone (Thalitone) 12.5 mg TID PO ; Start 01/17/17 at 21:00 Active Scripts Active Reported Sensipar (Cinacalcet Hcl) 30 Mg Tablet 1 Tab PO DAILYWSUP Calcium Acetate 667 Mg Tablet 1,334 Mg PO TIDWMEALS Atorvastatin Calcium 10 Mg Tablet 10 Mg PO HS Clorpres 0.2-15 Tablet (Clonidine Hcl/Chlorthalidone) 1 Each Tablet 1 Each PO TID Lovastatin 10 Mg Tablet 10 Mg PO HS Losartan Potassium 100 Mg Tablet 100 Mg PO DAILY Amlodipine Besylate 10 Mg Tablet 10 Mg PO DAILY Ferrous Sulfate 325 Mg Tablet 1 Tab PO DAILY Lasix (Furosemide) 40 Mg Tablet 1 Tab PO DAILY Aspir 81 (Aspirin) 81 Mg Tablet. 1 Tab PO DAILY Vitals/I & O Vital Sign - Last 24 Hours 01/16/17 01/16/17 01/16/17 01/16/17 16:17 21:30 21:33 22:39 Temp 98.2 98.2 Pulse 60 83 Resp 25 18 B/P 215/86 134/59 Pulse Ox 93 97 93 O2 Delivery Room Air Room Air Room Air 01/17/17 01/17/17 01/17/17 03:59 07:00 08:00 Temp 97.8 97.6 97.8 97.6 Pulse 68 70 Resp 18 22 B/P 150/66 154/67 Pulse Ox 97 98 O2 Delivery Room Air Room Air Intake and Output 01/16/17 01/16/17 01/17/17 15:00 23:00 07:00 Intake Total 350 ml Balance 350 ml ELIZABETH HINOJOSA MD Jan 17, 2017 16:01
[2017-01-17] MEDS: CALCIUM ACETATE 667 MG CAPSULE PO SCH (16:42)
[2017-01-17] MEDS: CINACALCET HCL 30 MG TABLET PO SCH (16:42)
[2017-01-17] MEDS: cloNIDine HCL 0.2 MG TABLET PO SCH ×2 (16:44→23:18)
--- NOTE | 2017-01-17 17:54 | PDOC ---
Provider Note Provider Note RENAL F/U : JOHN S : Doing better. No new issues reported. O : VSS Afebrile. Neck : Supple Lungs : Non labored. Few rhonchi. CVS : RRR Abd : Benign appearing. No major distention. Ext: No edema. Neuro : Intact Labs and meds reviewed. A/P : ESRD HTN w CKD HYPERKALEMIA Labs ? extra HD in am. CPM. Supportive care. Deyanira Lopez M.D. DEYANIRA LOPEZ MD Jan 17, 2017 17:54
[2017-01-17] MEDS ORDERED: ATORVASTATIN CALCIUM 10 MG TABLET. PO SCH (21:00)
[2017-01-17] MEDS: ATORVASTATIN CALCIUM 10 MG TABLET. PO SCH (21:19)
[2017-01-17] MEDS: CHLORTHALIDONE 25 MG TABLET. PO SCH (23:18)
[2017-01-18 03:59] VITALS: BP 106/58
[2017-01-18 07:00] VITALS: BP 112/64
[2017-01-18] MEDS: cloNIDine HCL 0.2 MG TABLET PO SCH ×3 (08:35→21:00)
[2017-01-18] MEDS: CALCIUM ACETATE 667 MG CAPSULE PO SCH ×3 (08:35→16:53)
[2017-01-18] MEDS: ASPIRIN ENTERIC COATED 81 MG TABLET.DR. PO SCH (08:36)
[2017-01-18] MEDS: LOSARTAN POTASSIUM 50 MG TABLET. PO SCH (08:36)
[2017-01-18] MEDS: amLODIPine BESYLATE 10 MG TABLET PO SCH (08:37)
[2017-01-18] MEDS: FUROSEMIDE 40 MG TABLET. PO SCH (08:37)
[2017-01-18] MEDS: CHLORTHALIDONE 25 MG TABLET. PO SCH ×3 (08:37→21:00)
[2017-01-18] MEDS: FERROUS SULFATE 325 MG TABLET. PO SCH (08:37)
--- NOTE | 2017-01-18 08:50 | PDOC ---
SUBJECTIVE ROS ESRD doing and feeling well overall CVS: no Orthopnea, no CP RESP: no SOB, no CARRERA GI: no Nausea, no Vomiting : no Dysuria, no Urgency OBJECTIVE Vital Signs Vital Signs Date Time Temp Pulse Resp B/P Pulse Ox O2 Delivery O2 Flow Rate FiO2 01/18/17 08:37 53 160/63 01/18/17 08:00 Room Air 01/18/17 07:00 97.9 20 97 97.9 I & 0 Intake and Output 01/18/17 07:00 Intake Total 1320 ml Output Total 625 ml Balance 695 ml Intake Oral 1320 ml Output Urine Total 625 ml PHYSICAL EXAM Physical Exam General Appearance: Awake Alert Oriented x 3 In no Distress Eyes: VIsion Unchanged Conjunctiva Normal EN: No EN Drainage Mucous Memb. moist Neck: no JVD no JVP Supple no Thyromegaly CVS: S1 S2 + Murmur No Gallop No Rub + Edema Resp: no Rales no Rhonchi no Acc. Muscle use GI: BAS +ve NO Bruit Non Tender Non Distended; morbidly obese : no CVA tenderness; no Suprapubic Tenderness Assessment & Plan ESRD: Current fluid and E-lyte status does not necessitate emergent need for dialysis. Will re-evaluate for dialysis in the am and continue on MWF schedule. non-functioning AV Access - possible declott in am; Temp line in place h/o Anemia of CKD : Epogen if needed Transfuse with next HD as needed. HTN: reval after home BP Meds are restarted. Current BP meds reviewed. See orders for changes. Bone & Mineral: check phos and alter binder regimen as needed ^K OA - no labs for today yet. Discussed Plan of Care and prognosis etc. at length with family and with Dr Fu COMMENT/RELEVANT DATA Meds Current Medications Medications (Trade) Dose Ordered Sig/Virgil Start Time Stop Time Status Last Admin Dose Admin Acetaminophen (Tylenol) 325 mg PRN Q6HRS PRN 01/16/17 17:30 UNV Acetaminophen/ Hydrocodone Bitart (Lortab 5/325) 1 tab PRN Q6HRS PRN 01/16/17 17:30 UNV Albuterol Sulfate (Ventolin Neb Soln) 2.5 mg PRN Q4HRS PRN 01/16/17 17:30 Albuterol Sulfate 2.5 mg 2.5 mg PRN Q4HRS PRN 01/16/17 17:30 UNV Amlodipine Besylate (Norvasc) 10 mg DAILY 01/18/17 09:00 01/18/17 08:37 10 MG Aspirin (Ecotrin) 81 mg DAILY 01/18/17 09:00 01/18/17 08:36 81 MG Atorvastatin Calcium (Lipitor) 5 mg QHS 01/17/17 21:00 01/17/17 21:00 DC Calcium Acetate (Phoslo) 1,334 mg TIDWMEALS 01/17/17 17:00 01/18/17 08:35 1,334 MG Chlorthalidone (Thalitone) 12.5 mg TID 01/17/17 21:00 01/18/17 08:37 12.5 MG Cinacalcet (Sensipar) 30 mg DAILYWSUP 01/17/17 17:00 01/17/17 16:42 30 MG Clonidine HCl (Catapres) 0.2 mg TID 01/17/17 15:45 01/18/17 08:35 0.2 MG Ferrous Sulfate (Feosol) 325 mg DAILY 01/18/17 09:00 01/18/17 08:37 325 MG Furosemide (Lasix) 40 mg DAILY 01/18/17 09:00 01/18/17 08:37 40 MG Heparin Sodium (Porcine) (Heparin Sodium) 2,500 unit 1X ONCE 01/16/17 15:45 01/16/17 15:46 DC 01/16/17 16:10 2,500 UNIT Heparin Sodium/ Sodium Chloride 60 unit 1X ONCE 01/16/17 15:45 01/16/17 15:46 DC 01/16/17 16:11 60 UNIT Hydralazine HCl (Apresoline) 10 mg PRN Q4HRS PRN 01/16/17 17:30 UNV Info (PHARMACY MONITORING -- do not chart) 1 each PRN DAILY PRN 01/16/17 20:30 UNV Lidocaine/Sodium Bicarbonate (Buffered Lidocaine 1%) 3 ml 1X ONCE 01/16/17 15:45 01/16/17 15:46 DC 01/16/17 16:11 3 ML Losartan Potassium (Cozaar) 100 mg DAILY 01/18/17 09:00 01/18/17 08:36 100 MG Magnesium Sulfate/ Dextrose (Magnesium Sulfate PREMIX 2GM) 50 ml @ 25 mls/hr PRN DAILY PRN 01/16/17 15:30 Ondansetron HCl (Zofran) 4 mg PRN Q8HRS PRN 01/16/17 17:30 UNV Sodium Chloride (Iv Sodium Chloride 0.9% 1000ml Bag) 1,000 ml @ 1,000 mls/hr Q1H PRN 01/16/17 20:20 01/17/17 02:19 DC Sodium Chloride (Normal Saline Flush) 10 ml 1X PRN PRN 01/16/17 20:30 01/17/17 20:29 DC Lab Laboratory Tests Test 01/17/17 11:12 01/17/17 17:07 01/17/17 20:12 01/18/17 07:35 Glucose (Fingerstick) 121mg/dL (70-99) 218mg/dL (70-99) 141mg/dL (70-99) 104mg/dL (70-99) VELIA AMARAL MD Jan 18, 2017 08:50
[2017-01-18 11:00] VITALS: BP 100/56
--- NOTE | 2017-01-18 12:04 | PDOC ---
PROGRESS NOTES Chief Complaint Chief Complaint cc: non function AV graft A/P 1. Nonfunctioning arteriovenous graft, left side. 2. End-stage renal disease, on hemodialysis. 3. Hypertension, not controlled. 4. Diabetes mellitus, non-insulin dependent. 5. Anemia of chronic disease. 6. Hyperparathyroidism. Plan HD per nephrology SSI Home medications continued HD per nephrology PT/OT PRN hydralazine for HTN IR Consulted, Possible arteriovenous graft intervention on Thursday. Labs reviwed, continue current care. Sinus bradycardia, asymptomatic, monitor Vitals Vitals Vital Signs Date Time Temp Pulse Resp B/P Pulse Ox O2 Delivery O2 Flow Rate FiO2 01/18/17 11:00 98.2 60 16 100/56 96 Room Air 98.2 Physical Exam General: Alert, Oriented X3 Heart: Normal S1, Normal S2 Lungs: Clear Abdomen: Normal bowel sounds, Soft Labs LABS Laboratory Tests Test 01/17/17 17:07 01/17/17 20:12 01/18/17 07:35 01/18/17 11:38 Glucose (Fingerstick) 218mg/dL (70-99) 141mg/dL (70-99) 104mg/dL (70-99) 123mg/dL (70-99) Assessment and Plan Assessmemt and Plan Problems Medical Problems: (1) AV graft malfunction Status: Acute (2) ESRD (end stage renal disease) on dialysis Status: Acute (3) Hyperkalemia Status: Acute Problems: Comment Review of Relevant I have reviewed the following items vicente (where applicable) has been applied. Labs Laboratory Tests Test 01/16/17 15:05 01/16/17 17:28 01/17/17 07:00 01/17/17 07:21 White Blood Count 6.6x10^3/uL (4.0-11.0) 6.0x10^3/uL (4.0-11.0) Red Blood Count 4.35x10^6/uL (3.50-5.40) 4.45x10^6/uL (3.50-5.40) Hemoglobin 12.3g/dL (12.0-15.5) 12.5g/dL (12.0-15.5) Hematocrit 38.1% (36.0-47.0) 39.0% (36.0-47.0) Mean Corpuscular Volume 88fL (79-100) 87fL (79-100) Mean Corpuscular Hemoglobin 28pg (25-35) 28pg (25-35) Mean Corpuscular Hemoglobin Concent 32g/dL (31-37) 32g/dL (31-37) Red Cell Distribution Width 25.0% (11.5-14.5) 25.5% (11.5-14.5) Platelet Count 343x10^3/uL (140-400) 302x10^3/uL (140-400) Neutrophils (%) (Auto) 61% (31-73) 71% (31-73) Lymphocytes (%) (Auto) 24% (24-48) 15% (24-48) Monocytes (%) (Auto) 10% (0-9) 11% (0-9) Eosinophils (%) (Auto) 3% (0-3) 3% (0-3) Basophils (%) (Auto) 2% (0-3) 1% (0-3) Neutrophils # (Auto) 4.0x10^3uL (1.8-7.7) 4.2x10^3uL (1.8-7.7) Lymphocytes # (Auto) 1.6x10^3/uL (1.0-4.8) 0.9x10^3/uL (1.0-4.8) Monocytes # (Auto) 0.7x10^3/uL (0.0-1.1) 0.6x10^3/uL (0.0-1.1) Eosinophils # (Auto) 0.2x10^3/uL (0.0-0.7) 0.2x10^3/uL (0.0-0.7) Basophils # (Auto) 0.1x10^3/uL (0.0-0.2) 0.1x10^3/uL (0.0-0.2) Platelet Estimate Adequate (ADEQUATE) Polychromasia Slight Anisocytosis Mod Target Cells Mod [place] Cells Few Schistocytes Few Prothrombin Time 12.9SEC (11.7-14.0) Prothromb Time International Ratio 1.0 (0.8-1.1) Activated Partial Thromboplast Time 33SEC (24-38) Sodium Level 136mmol/L (136-145) 135mmol/L (136-145) Potassium Level 5.6mmol/L (3.5-5.1) 5.0mmol/L (3.5-5.1) Chloride Level 95mmol/L (98-107) 97mmol/L (98-107) Carbon Dioxide Level 28mmol/L (21-32) 27mmol/L (21-32) Anion Gap 13 (6-14) 11 (6-14) Blood Urea Nitrogen 102mg/dL (7-20) 63mg/dL (7-20) Creatinine 11.0mg/dL (0.6-1.0) 8.3mg/dL (0.6-1.0) Estimated GFR (Cockcroft-Gault) 4.0 5.6 Glucose Level 94mg/dL (70-99) 103mg/dL (70-99) Calcium Level 9.1mg/dL (8.5-10.1) 8.6mg/dL (8.5-10.1) Glucose (Fingerstick) 77mg/dL (70-99) 111mg/dL (70-99) Phosphorus Level 6.2mg/dL (2.6-4.7) Magnesium Level 2.4mg/dL (1.8-2.4) Albumin 3.5g/dL (3.4-5.0) Test 01/17/17 11:12 01/17/17 17:07 01/17/17 20:12 01/18/17 07:35 Glucose (Fingerstick) 121mg/dL (70-99) 218mg/dL (70-99) 141mg/dL (70-99) 104mg/dL (70-99) Test 01/18/17 11:38 Glucose (Fingerstick) 123mg/dL (70-99) Laboratory Tests Test 01/17/17 17:07 01/17/17 20:12 01/18/17 07:35 01/18/17 11:38 Glucose (Fingerstick) 218mg/dL (70-99) 141mg/dL (70-99) 104mg/dL (70-99) 123mg/dL (70-99) Medications Current Medications Magnesium Sulfate/ Dextrose (Magnesium Sulfate PREMIX 2GM) 50 ml @ 25 mls/hr PRN DAILY PRN IV for Mag < 1.7 on am labs; Start 01/16/17 at 15:30 Heparin Sodium (Porcine) (Heparin Sodium) 10,000 unit STK-MED ONCE .ROUTE ; Start 01/16/17 at 15:29; Stop 01/16/17 at 15:30; Status DC Lidocaine/Sodium Bicarbonate 20 ml 20 ml STK-MED ONCE IJ ; Start 01/16/17 at 15: 30; Stop 01/16/17 at 15:31; Status DC Heparin Sodium/ Sodium Chloride 500 ml @ As Directed STK-MED ONCE .ROUTE ; Start 01/16/17 at 15:30; Stop 01/16/17 at 15:31; Status DC Lidocaine/Sodium Bicarbonate (Buffered Lidocaine 1%) 3 ml 1X ONCE IJ Last administered on 01/16/17 16:11; Start 01/16/17 at 15:45; Stop 01/16/17 at 15:46 ; Status DC Heparin Sodium/ Sodium Chloride 60 unit 1X ONCE IV Last administered on 16:11; Start 01/16/17 at 15:45; Stop 01/16/17 at 15:46; Status DC Heparin Sodium (Porcine) (Heparin Sodium) 2,500 unit 1X ONCE INT CAT Last administered on 01/16/17 16:10; Start 01/16/17 at 15:45; Stop 01/16/17 at 15:46 ; Status DC Ondansetron HCl (Zofran) 4 mg PRN Q8HRS PRN IV NAUSEA/VOMITING; Start 01/16/17 at 16:15; Stop 01/17/17 at 15:46; Status DC Acetaminophen (Tylenol) 650 mg PRN Q4HRS PRN PO FEVER; Start 01/16/17 at 16:15 ; Stop 01/17/17 at 16:14; Status DC Acetaminophen (Tylenol) 325 mg PRN Q6HRS PRN PO MILD PAIN / TEMP; Start at 17:30 Acetaminophen/ Hydrocodone Bitart (Lortab 5/325) 1 tab PRN Q6HRS PRN PO MODERATE TO SEVERE PAIN; Start 01/16/17 at 17:30 Hydralazine HCl (Apresoline) 10 mg PRN Q4HRS PRN IVP ELEVATED BP, SEE COMMENTS ; Start 01/16/17 at 17:30 Ondansetron HCl (Zofran) 4 mg PRN Q8HRS PRN IV NAUSEA/VOMITING; Start 01/16/17 at 17:30 Albuterol Sulfate (Ventolin Neb Soln) 2.5 mg PRN Q4HRS PRN NEB SHORTNESS OF BREATH; Start 01/16/17 at 17:30 Acetaminophen (Tylenol) 325 mg PRN Q6HRS PRN PO MILD PAIN / TEMP; Start at 17:30; Status UNV Acetaminophen/ Hydrocodone Bitart (Lortab 5/325) 1 tab PRN Q6HRS PRN PO MODERATE TO SEVERE PAIN; Start 01/16/17 at 17:30; Status UNV Hydralazine HCl (Apresoline) 10 mg PRN Q4HRS PRN IVP ELEVATED BP, SEE COMMENTS ; Start 01/16/17 at 17:30; Status UNV Ondansetron HCl (Zofran) 4 mg PRN Q8HRS PRN IV NAUSEA/VOMITING; Start 01/16/17 at 17:30; Status UNV Albuterol Sulfate 2.5 mg 2.5 mg PRN Q4HRS PRN NEB SHORTNESS OF BREATH; Start at 17:30; Status UNV Sodium Chloride (Iv Sodium Chloride 0.9% 1000ml Bag) 1,000 ml @ 1,000 mls/hr Q1H PRN IV hypotension; Start 01/16/17 at 20:20; Stop 01/17/17 at 02:19; Status DC Sodium Chloride (Normal Saline Flush) 10 ml 1X PRN PRN IV AP catheter pack; Start 01/16/17 at 20:30; Stop 01/17/17 at 20:29; Status DC Sodium Chloride (Normal Saline Flush) 10 ml 1X PRN PRN IV COMMERCIAL ASSISTANT catheter pack; Start 01/16/17 at 20:30; Stop 01/17/17 at 20:29; Status DC Info (PHARMACY MONITORING -- do not chart) 1 each PRN DAILY PRN MC SEE COMMENTS ; Start 01/16/17 at 20:30 Info (PHARMACY MONITORING -- do not chart) 1 each PRN DAILY PRN MC SEE COMMENTS ; Start 01/16/17 at 20:30; Status UNV Amlodipine Besylate (Norvasc) 10 mg DAILY PO Last administered on 01/18/17 08: 37; Start 01/18/17 at 09:00 Aspirin (Ecotrin) 81 mg DAILY PO Last administered on 01/18/17 08:36; Start at 09:00 Atorvastatin Calcium (Lipitor) 10 mg HS PO Last administered on 01/17/17 21:19 ; Start 01/17/17 at 21:00 Cinacalcet (Sensipar) 30 mg DAILYWSUP PO Last administered on 01/17/17 16:42; Start 01/17/17 at 17:00 Ferrous Sulfate (Feosol) 325 mg DAILY PO Last administered on 01/18/17 08:37; Start 01/18/17 at 09:00 Furosemide (Lasix) 40 mg DAILY PO Last administered on 01/18/17 08:37; Start 01/18/17 at 09:00 Calcium Acetate (Phoslo) 1,334 mg TIDWMEALS PO Last administered on 01/18/17 11:44; Start 01/17/17 at 17:00 Clonidine HCl (Catapres) 0.2 mg TID PO Last administered on 01/18/17 08:35; Start 01/17/17 at 15:45 Losartan Potassium (Cozaar) 100 mg DAILY PO Last administered on 01/18/17 08: 36; Start 01/18/17 at 09:00 Atorvastatin Calcium (Lipitor) 5 mg QHS PO ; Start 01/17/17 at 21:00; Stop 01/17 at 21:00; Status DC Chlorthalidone (Thalitone) 12.5 mg TID PO Last administered on 01/18/17 08:37 ; Start 01/17/17 at 21:00 Active Scripts Active Reported Sensipar (Cinacalcet Hcl) 30 Mg Tablet 1 Tab PO DAILYWSUP Calcium Acetate 667 Mg Tablet 1,334 Mg PO TIDWMEALS Atorvastatin Calcium 10 Mg Tablet 10 Mg PO HS Clorpres 0.2-15 Tablet (Clonidine Hcl/Chlorthalidone) 1 Each Tablet 1 Each PO TID Lovastatin 10 Mg Tablet 10 Mg PO HS Losartan Potassium 100 Mg Tablet 100 Mg PO DAILY Amlodipine Besylate 10 Mg Tablet 10 Mg PO DAILY Ferrous Sulfate 325 Mg Tablet 1 Tab PO DAILY Lasix (Furosemide) 40 Mg Tablet 1 Tab PO DAILY Aspir 81 (Aspirin) 81 Mg Tablet.dr 1 Tab PO DAILY Vitals/I & O Vital Sign - Last 24 Hours 01/17/17 01/17/17 01/17/17 01/17/17 15:00 16:44 19:58 20:00 Temp 98.0 98.2 98.0 98.2 Pulse 77 70 71 Resp 22 18 B/P 102/59 154/67 132/65 Pulse Ox 98 94 O2 Delivery Room Air Room Air 01/17/17 01/17/17 01/17/17 01/18/17 21:20 23:18 23:51 03:59 Temp 97.5 97.6 97.5 97.6 Pulse 65 59 59 53 Resp 18 18 B/P 122/49 132/62 132/62 106/58 Pulse Ox 96 96 O2 Delivery Room Air Room Air 01/18/17 01/18/17 01/18/17 01/18/17 07:00 08:00 08:35 08:36 Temp 97.9 97.9 Pulse 54 53 53 Resp 20 B/P 112/64 106/58 106/58 Pulse Ox 97 O2 Delivery Room Air Room Air 01/18/17 01/18/17 08:37 11:00 Temp 98.2 98.2 Pulse 53 60 Resp 16 B/P 160/63 100/56 Pulse Ox 96 O2 Delivery Room Air Intake and Output 01/17/17 01/17/17 01/18/17 15:00 23:00 07:00 Intake Total 720 ml 600 ml Output Total 625 ml Balance 720 ml -25 ml ELIZABETH HINOJOSA MD Jan 18, 2017 12:04
[2017-01-18 15:00] VITALS: BP 114/54
[2017-01-18 15:36] LABS: BASO % 1 % (0-3); EOS % 5 % (0-3); HEMATOCRIT 36.1 % (36.0-47.0); HEMOGLOBIN 12.2 g/dL (12.0-15.5); LYMPH % 20 % (24-48); MEAN CORPUSCULAR HEMOGLOBIN 30 pg (25-35); MEAN CORPUSCULAR HGB CONC 34 g/dL (31-37); MEAN CORPUSCULAR VOLUME 87 fL (79-100); MONO % 12 % (0-9); NEUT % 62 % (31-73); PLATELET COUNT 247 x10^3/uL (140-400); RED BLOOD COUNT 4.14 x10^6/uL (3.50-5.40); RED CELL DISTRIBUTION WIDTH 25.1 % (11.5-14.5); WHITE BLOOD COUNT 5.2 x10^3/uL (4.0-11.0)
[2017-01-18 15:48] LABS: CALCIUM 8.3 mg/dL (8.5-10.1); CREATININE 10.5 mg/dL (0.6-1.0); GFR 4.2; POTASSIUM 5.2 mmol/L (3.5-5.1)
[2017-01-18 16:34] LABS: ALBUMIN 3.2 g/dL (3.4-5.0); CALCIUM 8.1 mg/dL (8.5-10.1); CREATININE 10.5 mg/dL (0.6-1.0); GFR 4.2; PHOSPHORUS 6.6 mg/dL (2.6-4.7); POTASSIUM 5.2 mmol/L (3.5-5.1)
[2017-01-18] MEDS: CINACALCET HCL 30 MG TABLET PO SCH (16:53)
[2017-01-18 19:00] VITALS: BP 122/55
[2017-01-18] MEDS: ATORVASTATIN CALCIUM 10 MG TABLET. PO SCH (21:34)
[2017-01-18 22:50] VITALS: BP 122/56
[2017-01-19 02:57] VITALS: BP 123/49
[2017-01-19 04:12] LABS: CALCIUM 7.9 mg/dL (8.5-10.1); CREATININE 11.1 mg/dL (0.6-1.0); PHOSPHORUS 6.7 mg/dL (2.6-4.7)
[2017-01-19 04:20] LABS: POTASSIUM 6.2 mmol/L (3.5-5.1)
[2017-01-19 04:22] LABS: BASO % 1 % (0-3); EOS % 5 % (0-3); HEMATOCRIT 35.8 % (36.0-47.0); HEMOGLOBIN 11.6 g/dL (12.0-15.5); LYMPH # 1.3 x10^3/uL (1.0-4.8); LYMPH % 24 % (24-48); MEAN CORPUSCULAR HEMOGLOBIN 29 pg (25-35); MEAN CORPUSCULAR HGB CONC 33 g/dL (31-37); MEAN CORPUSCULAR VOLUME 89 fL (79-100); MONO % 12 % (0-9); NEUT % 59 % (31-73); PLATELET COUNT 245 x10^3/uL (140-400); RED BLOOD COUNT 4.04 x10^6/uL (3.50-5.40); RED CELL DISTRIBUTION WIDTH 24.3 % (11.5-14.5); WHITE BLOOD COUNT 5.6 x10^3/uL (4.0-11.0)
[2017-01-19] MEDS ORDERED: INSULIN REGULAR 100 UNIT/ML 10ML VIAL. IV ONE ×2 (05:00)
[2017-01-19] MEDS ORDERED: DEXTROSE 50% 25 GM / 50ML DISP.SYRIN. IV ONE ×2 (05:00→07:00)
[2017-01-19 07:00] VITALS: BP 140/57
[2017-01-19] MEDS: CALCIUM ACETATE 667 MG CAPSULE PO SCH ×3 (08:00→17:36)
[2017-01-19] MEDS ORDERED: IV NORMAL SALINE 1000ML BAG 1,000 ML IV PRN ×2 (08:55)
[2017-01-19] MEDS: amLODIPine BESYLATE 10 MG TABLET PO SCH (09:00)
[2017-01-19] MEDS: CHLORTHALIDONE 25 MG TABLET. PO SCH ×3 (09:00→21:02)
[2017-01-19] MEDS ORDERED: 0.9 % SODIUM CHLORIDE 10 ML DISP.SYRIN. IV PRN ×2 (09:00)
[2017-01-19] MEDS: cloNIDine HCL 0.2 MG TABLET PO SCH ×3 (09:00→21:03)
[2017-01-19] MEDS: ASPIRIN ENTERIC COATED 81 MG TABLET.DR. PO SCH (09:00)
[2017-01-19] MEDS: FUROSEMIDE 40 MG TABLET. PO SCH (09:00)
[2017-01-19] MEDS ORDERED: DIALYSIS PATIENT. MC PRN (09:00)
[2017-01-19] MEDS: FERROUS SULFATE 325 MG TABLET. PO SCH (09:00)
[2017-01-19] MEDS ORDERED: ALBUMIN HUMAN 25% 200 ML IV PRN (09:00)
[2017-01-19] MEDS: LOSARTAN POTASSIUM 50 MG TABLET. PO SCH (09:00)
--- NOTE | 2017-01-19 09:48 | HP ---
ADMIT DATE: 01/16/2017 CHIEF COMPLAINT: Nonfunctioning AV graft, missed hemodialysis. HISTORY OF PRESENT ILLNESS: An 86-year-old female patient with prior history of end-stage renal disease on hemodialysis with hypertension, diabetes who was having problems with AV graft. She is not able to complete her hemodialysis due to nonfunctioning AV access. The patient could not complete her hemodialysis today. Her daughter brought her to the ER. The patient was needing emergent hemodialysis catheter for hemodialysis and she needs further intervention for AV graft in the hospital. At the time of examination, the patient denies any symptoms. Resting comfortable in the bed. She did say that she missed her home medications in the morning. PAST MEDICAL HISTORY: Please see my electronic H and P. REVIEW OF SYSTEMS: Please see my electronic H and P. LABORATORY DATA: WBC 6.6, hemoglobin 12.3, MCV is 88, platelets 343. Chemistry: Sodium is 136, potassium 5.6, chloride is 95, carbon dioxide 28, gap is 13, BUN 102, creatinine 11. Coagulation panel: PT/INR within normal range. IMAGING STUDIES: Left upper extremity arterial Doppler pending. Chest x-ray: Interval insertion of right jugular dialysis type catheter, ASSESSMENT AND PLAN: 1. Nonfunctioning arteriovenous graft, left side. 2. End-stage renal disease, on hemodialysis. 3. Hypertension, not controlled. 4. Diabetes mellitus, non-insulin dependent. 5. Anemia of chronic disease. 6. Hyperparathyroidism. PLAN: 1. She has been admitted to the hospital for emergency hemodialysis. She had a temporary hemodialysis catheter placed by Interventional Radiology and scheduled for hemodialysis as per nephrology. 2. Nephrology has been consulted and ordered left upper extremity arterial Doppler, results pending. 3. Home medications needs to be verified. Discussed with RN. Family needs to bring home medications. 4. P.r.n. hydralazine for hypertension. Currently blood pressure is coming down to 160. The patient is asymptomatic. 5. Supportive care. 6. Sliding scale insulin for hyperglycemia. 7. Possible arteriovenous graft intervention on Thursday. ELIZABETH HINOJOSA MD DR: ALLIE/ana maria JOB#: [id number] / [id number] ERIKA
--- NOTE | 2017-01-19 09:58 | PDOC ---
Dialysis Progress Note Dialysis Note Dialysis Note Seen on Hemodialysis, tolerating treatment Well Vitals on Hemodialysis: 140/63 65 afeb General Appearance: Awake: Alert Oriented x 3 Neck: No JVD or JVP Chest: CTA Marcos Heart: S1 S2 Abdomen - Soft NTND Extremities - No Edema ESRD: Dialysis as below F 180 NR 3.5 Hrs 1 K x 1.5hrs then 2K for 2 hrs 2.5 Ca 140 Na 35 HC03 Qb 350 + Qd 500+ Heparin 0 Units Uf 2 Kgs or to dry weight as tolerated May give 25-50 gms of 25% Albumin if needed to maintain Hemodynamic stability Treatment plan reviewed and discussed with document imaging manager Vitals Vital Signs Vital Signs Date Time Temp Pulse Resp B/P Pulse Ox O2 Delivery O2 Flow Rate FiO2 01/19/17 07:47 94 Room Air 01/19/17 07:00 97.4 71 17 140/57 97.4 Labs Last Labs Laboratory Tests Test 01/17/17 11:12 01/17/17 17:07 01/17/17 20:12 01/18/17 07:35 Glucose (Fingerstick) 121mg/dL (70-99) 218mg/dL (70-99) 141mg/dL (70-99) 104mg/dL (70-99) Test 01/18/17 11:38 01/18/17 15:15 01/18/17 17:03 01/18/17 20:45 Glucose (Fingerstick) 123mg/dL (70-99) 98mg/dL (70-99) 134mg/dL (70-99) White Blood Count 5.2x10^3/uL (4.0-11.0) Red Blood Count 4.14x10^6/uL (3.50-5.40) Hemoglobin 12.2g/dL (12.0-15.5) Hematocrit 36.1% (36.0-47.0) Mean Corpuscular Volume 87fL (79-100) Mean Corpuscular Hemoglobin 30pg (25-35) Mean Corpuscular Hemoglobin Concent 34g/dL (31-37) Red Cell Distribution Width 25.1% (11.5-14.5) Platelet Count 247x10^3/uL (140-400) Neutrophils (%) (Auto) 62% (31-73) Lymphocytes (%) (Auto) 20% (24-48) Monocytes (%) (Auto) 12% (0-9) Eosinophils (%) (Auto) 5% (0-3) Basophils (%) (Auto) 1% (0-3) Neutrophils # (Auto) 3.2x10^3uL (1.8-7.7) Lymphocytes # (Auto) 1.0x10^3/uL (1.0-4.8) Monocytes # (Auto) 0.6x10^3/uL (0.0-1.1) Eosinophils # (Auto) 0.2x10^3/uL (0.0-0.7) Basophils # (Auto) 0.0x10^3/uL (0.0-0.2) Sodium Level 134mmol/L (136-145) Potassium Level 5.2mmol/L (3.5-5.1) Chloride Level 96mmol/L (98-107) Carbon Dioxide Level 27mmol/L (21-32) Anion Gap 11 (6-14) Blood Urea Nitrogen 100mg/dL (7-20) Creatinine 10.5mg/dL (0.6-1.0) Estimated GFR (Cockcroft-Gault) 4.2 Glucose Level 101mg/dL (70-99) Calcium Level 8.3mg/dL (8.5-10.1) Phosphorus Level 6.6mg/dL (2.6-4.7) Magnesium Level 2.9mg/dL (1.8-2.4) Albumin 3.2g/dL (3.4-5.0) Test 01/19/17 03:20 01/19/17 06:35 01/19/17 07:24 01/19/17 09:32 White Blood Count 5.6x10^3/uL (4.0-11.0) Red Blood Count 4.04x10^6/uL (3.50-5.40) Hemoglobin 11.6g/dL (12.0-15.5) Hematocrit 35.8% (36.0-47.0) Mean Corpuscular Volume 89fL (79-100) Mean Corpuscular Hemoglobin 29pg (25-35) Mean Corpuscular Hemoglobin Concent 33g/dL (31-37) Red Cell Distribution Width 24.3% (11.5-14.5) Platelet Count 245x10^3/uL (140-400) Neutrophils (%) (Auto) 59% (31-73) Lymphocytes (%) (Auto) 24% (24-48) Monocytes (%) (Auto) 12% (0-9) Eosinophils (%) (Auto) 5% (0-3) Basophils (%) (Auto) 1% (0-3) Neutrophils # (Auto) 3.3x10^3uL (1.8-7.7) Lymphocytes # (Auto) 1.3x10^3/uL (1.0-4.8) Monocytes # (Auto) 0.7x10^3/uL (0.0-1.1) Eosinophils # (Auto) 0.3x10^3/uL (0.0-0.7) Basophils # (Auto) 0.0x10^3/uL (0.0-0.2) Sodium Level 132mmol/L (136-145) Potassium Level 6.2mmol/L (3.5-5.1) Chloride Level 96mmol/L (98-107) Carbon Dioxide Level 25mmol/L (21-32) Anion Gap 11 (6-14) Blood Urea Nitrogen 110mg/dL (7-20) Creatinine 11.0mg/dL (0.6-1.0) Estimated GFR (Cockcroft-Gault) 4.0 Glucose Level 96mg/dL (70-99) Calcium Level 8.0mg/dL (8.5-10.1) Phosphorus Level 6.7mg/dL (2.6-4.7) Magnesium Level 2.8mg/dL (1.8-2.4) Albumin 3.0g/dL (3.4-5.0) Glucose (Fingerstick) 31mg/dL (70-99) 158mg/dL (70-99) 123mg/dL (70-99) Laboratory Tests Test 01/18/17 11:38 01/18/17 15:15 01/18/17 17:03 01/18/17 20:45 Glucose (Fingerstick) 123mg/dL (70-99) 98mg/dL (70-99) 134mg/dL (70-99) White Blood Count 5.2x10^3/uL (4.0-11.0) Red Blood Count 4.14x10^6/uL (3.50-5.40) Hemoglobin 12.2g/dL (12.0-15.5) Hematocrit 36.1% (36.0-47.0) Mean Corpuscular Volume 87fL (79-100) Mean Corpuscular Hemoglobin 30pg (25-35) Mean Corpuscular Hemoglobin Concent 34g/dL (31-37) Red Cell Distribution Width 25.1% (11.5-14.5) Platelet Count 247x10^3/uL (140-400) Neutrophils (%) (Auto) 62% (31-73) Lymphocytes (%) (Auto) 20% (24-48) Monocytes (%) (Auto) 12% (0-9) Eosinophils (%) (Auto) 5% (0-3) Basophils (%) (Auto) 1% (0-3) Neutrophils # (Auto) 3.2x10^3uL (1.8-7.7) Lymphocytes # (Auto) 1.0x10^3/uL (1.0-4.8) Monocytes # (Auto) 0.6x10^3/uL (0.0-1.1) Eosinophils # (Auto) 0.2x10^3/uL (0.0-0.7) Basophils # (Auto) 0.0x10^3/uL (0.0-0.2) Sodium Level 134mmol/L (136-145) Potassium Level 5.2mmol/L (3.5-5.1) Chloride Level 96mmol/L (98-107) Carbon Dioxide Level 27mmol/L (21-32) Anion Gap 11 (6-14) Blood Urea Nitrogen 100mg/dL (7-20) Creatinine 10.5mg/dL (0.6-1.0) Estimated GFR (Cockcroft-Gault) 4.2 Glucose Level 101mg/dL (70-99) Calcium Level 8.3mg/dL (8.5-10.1) Phosphorus Level 6.6mg/dL (2.6-4.7) Magnesium Level 2.9mg/dL (1.8-2.4) Albumin 3.2g/dL (3.4-5.0) Test 01/19/17 03:20 01/19/17 06:35 01/19/17 07:24 01/19/17 09:32 White Blood Count 5.6x10^3/uL (4.0-11.0) Red Blood Count 4.04x10^6/uL (3.50-5.40) Hemoglobin 11.6g/dL (12.0-15.5) Hematocrit 35.8% (36.0-47.0) Mean Corpuscular Volume 89fL (79-100) Mean Corpuscular Hemoglobin 29pg (25-35) Mean Corpuscular Hemoglobin Concent 33g/dL (31-37) Red Cell Distribution Width 24.3% (11.5-14.5) Platelet Count 245x10^3/uL (140-400) Neutrophils (%) (Auto) 59% (31-73) Lymphocytes (%) (Auto) 24% (24-48) Monocytes (%) (Auto) 12% (0-9) Eosinophils (%) (Auto) 5% (0-3) Basophils (%) (Auto) 1% (0-3) Neutrophils # (Auto) 3.3x10^3uL (1.8-7.7) Lymphocytes # (Auto) 1.3x10^3/uL (1.0-4.8) Monocytes # (Auto) 0.7x10^3/uL (0.0-1.1) Eosinophils # (Auto) 0.3x10^3/uL (0.0-0.7) Basophils # (Auto) 0.0x10^3/uL (0.0-0.2) Sodium Level 132mmol/L (136-145) Potassium Level 6.2mmol/L (3.5-5.1) Chloride Level 96mmol/L (98-107) Carbon Dioxide Level 25mmol/L (21-32) Anion Gap 11 (6-14) Blood Urea Nitrogen 110mg/dL (7-20) Creatinine 11.0mg/dL (0.6-1.0) Estimated GFR (Cockcroft-Gault) 4.0 Glucose Level 96mg/dL (70-99) Calcium Level 8.0mg/dL (8.5-10.1) Phosphorus Level 6.7mg/dL (2.6-4.7) Magnesium Level 2.8mg/dL (1.8-2.4) Albumin 3.0g/dL (3.4-5.0) Glucose (Fingerstick) 31mg/dL (70-99) 158mg/dL (70-99) 123mg/dL (70-99) Assessment Assessment Problems Medical Problems: (1) AV graft malfunction Status: Acute (2) ESRD (end stage renal disease) on dialysis Status: Acute (3) Hyperkalemia Status: Acute Problems: Plan Plan of Care Problems Medical Problems: (1) AV graft malfunction Status: Acute (2) ESRD (end stage renal disease) on dialysis Status: Acute (3) Hyperkalemia Status: Acute VELIA AMARAL MD January 19, 2017 09:58
--- NOTE | 2017-01-19 09:59 | PDOC ---
PROGRESS NOTES Chief Complaint Chief Complaint cc: non function AV graft A/P 1. Nonfunctioning arteriovenous graft, left side. 2. End-stage renal disease, on hemodialysis. 3. Hypertension, not controlled. 4. Diabetes mellitus, non-insulin dependent. 5. Anemia of chronic disease. 6. Hyperparathyroidism. 7. Critical hyperkalemia 8. Critical Hypoglycemia, Plan Stat IV insulin with Dextrose HD today SSI PT/OT PRN hydralazine for HTN IR Consulted, Possible arteriovenous graft intervention on today Labs reviwed, continue current care. Sinus bradycardia, asymptomatic, monitor History of Present Illness History of Present Illness doing better severe hyperkalemia this am hypoglycemia after that Vitals Vitals Vital Signs Date Time Temp Pulse Resp B/P Pulse Ox O2 Delivery O2 Flow Rate FiO2 01/19/17 07:47 94 Room Air 01/19/17 07:00 97.4 71 17 140/57 97.4 Physical Exam General: Alert, Oriented X3 Heart: Normal S1, Normal S2 Lungs: Clear Abdomen: Normal bowel sounds, Soft Labs LABS Laboratory Tests Test 01/18/17 11:38 01/18/17 15:15 01/18/17 17:03 01/18/17 20:45 Glucose (Fingerstick) 123mg/dL (70-99) 98mg/dL (70-99) 134mg/dL (70-99) White Blood Count 5.2x10^3/uL (4.0-11.0) Red Blood Count 4.14x10^6/uL (3.50-5.40) Hemoglobin 12.2g/dL (12.0-15.5) Hematocrit 36.1% (36.0-47.0) Mean Corpuscular Volume 87fL (79-100) Mean Corpuscular Hemoglobin 30pg (25-35) Mean Corpuscular Hemoglobin Concent 34g/dL (31-37) Red Cell Distribution Width 25.1% (11.5-14.5) Platelet Count 247x10^3/uL (140-400) Neutrophils (%) (Auto) 62% (31-73) Lymphocytes (%) (Auto) 20% (24-48) Monocytes (%) (Auto) 12% (0-9) Eosinophils (%) (Auto) 5% (0-3) Basophils (%) (Auto) 1% (0-3) Neutrophils # (Auto) 3.2x10^3uL (1.8-7.7) Lymphocytes # (Auto) 1.0x10^3/uL (1.0-4.8) Monocytes # (Auto) 0.6x10^3/uL (0.0-1.1) Eosinophils # (Auto) 0.2x10^3/uL (0.0-0.7) Basophils # (Auto) 0.0x10^3/uL (0.0-0.2) Sodium Level 134mmol/L (136-145) Potassium Level 5.2mmol/L (3.5-5.1) Chloride Level 96mmol/L (98-107) Carbon Dioxide Level 27mmol/L (21-32) Anion Gap 11 (6-14) Blood Urea Nitrogen 100mg/dL (7-20) Creatinine 10.5mg/dL (0.6-1.0) Estimated GFR (Cockcroft-Gault) 4.2 Glucose Level 101mg/dL (70-99) Calcium Level 8.3mg/dL (8.5-10.1) Phosphorus Level 6.6mg/dL (2.6-4.7) Magnesium Level 2.9mg/dL (1.8-2.4) Albumin 3.2g/dL (3.4-5.0) Test 01/19/17 03:20 01/19/17 06:35 01/19/17 07:24 01/19/17 09:32 White Blood Count 5.6x10^3/uL (4.0-11.0) Red Blood Count 4.04x10^6/uL (3.50-5.40) Hemoglobin 11.6g/dL (12.0-15.5) Hematocrit 35.8% (36.0-47.0) Mean Corpuscular Volume 89fL (79-100) Mean Corpuscular Hemoglobin 29pg (25-35) Mean Corpuscular Hemoglobin Concent 33g/dL (31-37) Red Cell Distribution Width 24.3% (11.5-14.5) Platelet Count 245x10^3/uL (140-400) Neutrophils (%) (Auto) 59% (31-73) Lymphocytes (%) (Auto) 24% (24-48) Monocytes (%) (Auto) 12% (0-9) Eosinophils (%) (Auto) 5% (0-3) Basophils (%) (Auto) 1% (0-3) Neutrophils # (Auto) 3.3x10^3uL (1.8-7.7) Lymphocytes # (Auto) 1.3x10^3/uL (1.0-4.8) Monocytes # (Auto) 0.7x10^3/uL (0.0-1.1) Eosinophils # (Auto) 0.3x10^3/uL (0.0-0.7) Basophils # (Auto) 0.0x10^3/uL (0.0-0.2) Sodium Level 132mmol/L (136-145) Potassium Level 6.2mmol/L (3.5-5.1) Chloride Level 96mmol/L (98-107) Carbon Dioxide Level 25mmol/L (21-32) Anion Gap 11 (6-14) Blood Urea Nitrogen 110mg/dL (7-20) Creatinine 11.0mg/dL (0.6-1.0) Estimated GFR (Cockcroft-Gault) 4.0 Glucose Level 96mg/dL (70-99) Calcium Level 8.0mg/dL (8.5-10.1) Phosphorus Level 6.7mg/dL (2.6-4.7) Magnesium Level 2.8mg/dL (1.8-2.4) Albumin 3.0g/dL (3.4-5.0) Glucose (Fingerstick) 31mg/dL (70-99) 158mg/dL (70-99) 123mg/dL (70-99) Assessment and Plan Assessmemt and Plan Problems Medical Problems: (1) AV graft malfunction Status: Acute (2) ESRD (end stage renal disease) on dialysis Status: Acute (3) Hyperkalemia Status: Acute Problems: Comment Review of Relevant I have reviewed the following items vicente (where applicable) has been applied. Labs Laboratory Tests Test 01/17/17 11:12 01/17/17 17:07 01/17/17 20:12 01/18/17 07:35 Glucose (Fingerstick) 121mg/dL (70-99) 218mg/dL (70-99) 141mg/dL (70-99) 104mg/dL (70-99) Test 01/18/17 11:38 01/18/17 15:15 01/18/17 17:03 01/18/17 20:45 Glucose (Fingerstick) 123mg/dL (70-99) 98mg/dL (70-99) 134mg/dL (70-99) White Blood Count 5.2x10^3/uL (4.0-11.0) Red Blood Count 4.14x10^6/uL (3.50-5.40) Hemoglobin 12.2g/dL (12.0-15.5) Hematocrit 36.1% (36.0-47.0) Mean Corpuscular Volume 87fL (79-100) Mean Corpuscular Hemoglobin 30pg (25-35) Mean Corpuscular Hemoglobin Concent 34g/dL (31-37) Red Cell Distribution Width 25.1% (11.5-14.5) Platelet Count 247x10^3/uL (140-400) Neutrophils (%) (Auto) 62% (31-73) Lymphocytes (%) (Auto) 20% (24-48) Monocytes (%) (Auto) 12% (0-9) Eosinophils (%) (Auto) 5% (0-3) Basophils (%) (Auto) 1% (0-3) Neutrophils # (Auto) 3.2x10^3uL (1.8-7.7) Lymphocytes # (Auto) 1.0x10^3/uL (1.0-4.8) Monocytes # (Auto) 0.6x10^3/uL (0.0-1.1) Eosinophils # (Auto) 0.2x10^3/uL (0.0-0.7) Basophils # (Auto) 0.0x10^3/uL (0.0-0.2) Sodium Level 134mmol/L (136-145) Potassium Level 5.2mmol/L (3.5-5.1) Chloride Level 96mmol/L (98-107) Carbon Dioxide Level 27mmol/L (21-32) Anion Gap 11 (6-14) Blood Urea Nitrogen 100mg/dL (7-20) Creatinine 10.5mg/dL (0.6-1.0) Estimated GFR (Cockcroft-Gault) 4.2 Glucose Level 101mg/dL (70-99) Calcium Level 8.3mg/dL (8.5-10.1) Phosphorus Level 6.6mg/dL (2.6-4.7) Magnesium Level 2.9mg/dL (1.8-2.4) Albumin 3.2g/dL (3.4-5.0) Test 01/19/17 03:20 01/19/17 06:35 01/19/17 07:24 01/19/17 09:32 White Blood Count 5.6x10^3/uL (4.0-11.0) Red Blood Count 4.04x10^6/uL (3.50-5.40) Hemoglobin 11.6g/dL (12.0-15.5) Hematocrit 35.8% (36.0-47.0) Mean Corpuscular Volume 89fL (79-100) Mean Corpuscular Hemoglobin 29pg (25-35) Mean Corpuscular Hemoglobin Concent 33g/dL (31-37) Red Cell Distribution Width 24.3% (11.5-14.5) Platelet Count 245x10^3/uL (140-400) Neutrophils (%) (Auto) 59% (31-73) Lymphocytes (%) (Auto) 24% (24-48) Monocytes (%) (Auto) 12% (0-9) Eosinophils (%) (Auto) 5% (0-3) Basophils (%) (Auto) 1% (0-3) Neutrophils # (Auto) 3.3x10^3uL (1.8-7.7) Lymphocytes # (Auto) 1.3x10^3/uL (1.0-4.8) Monocytes # (Auto) 0.7x10^3/uL (0.0-1.1) Eosinophils # (Auto) 0.3x10^3/uL (0.0-0.7) Basophils # (Auto) 0.0x10^3/uL (0.0-0.2) Sodium Level 132mmol/L (136-145) Potassium Level 6.2mmol/L (3.5-5.1) Chloride Level 96mmol/L (98-107) Carbon Dioxide Level 25mmol/L (21-32) Anion Gap 11 (6-14) Blood Urea Nitrogen 110mg/dL (7-20) Creatinine 11.0mg/dL (0.6-1.0) Estimated GFR (Cockcroft-Gault) 4.0 Glucose Level 96mg/dL (70-99) Calcium Level 8.0mg/dL (8.5-10.1) Phosphorus Level 6.7mg/dL (2.6-4.7) Magnesium Level 2.8mg/dL (1.8-2.4) Albumin 3.0g/dL (3.4-5.0) Glucose (Fingerstick) 31mg/dL (70-99) 158mg/dL (70-99) 123mg/dL (70-99) Laboratory Tests Test 01/18/17 11:38 01/18/17 15:15 01/18/17 17:03 01/18/17 20:45 Glucose (Fingerstick) 123mg/dL (70-99) 98mg/dL (70-99) 134mg/dL (70-99) White Blood Count 5.2x10^3/uL (4.0-11.0) Red Blood Count 4.14x10^6/uL (3.50-5.40) Hemoglobin 12.2g/dL (12.0-15.5) Hematocrit 36.1% (36.0-47.0) Mean Corpuscular Volume 87fL (79-100) Mean Corpuscular Hemoglobin 30pg (25-35) Mean Corpuscular Hemoglobin Concent 34g/dL (31-37) Red Cell Distribution Width 25.1% (11.5-14.5) Platelet Count 247x10^3/uL (140-400) Neutrophils (%) (Auto) 62% (31-73) Lymphocytes (%) (Auto) 20% (24-48) Monocytes (%) (Auto) 12% (0-9) Eosinophils (%) (Auto) 5% (0-3) Basophils (%) (Auto) 1% (0-3) Neutrophils # (Auto) 3.2x10^3uL (1.8-7.7) Lymphocytes # (Auto) 1.0x10^3/uL (1.0-4.8) Monocytes # (Auto) 0.6x10^3/uL (0.0-1.1) Eosinophils # (Auto) 0.2x10^3/uL (0.0-0.7) Basophils # (Auto) 0.0x10^3/uL (0.0-0.2) Sodium Level 134mmol/L (136-145) Potassium Level 5.2mmol/L (3.5-5.1) Chloride Level 96mmol/L (98-107) Carbon Dioxide Level 27mmol/L (21-32) Anion Gap 11 (6-14) Blood Urea Nitrogen 100mg/dL (7-20) Creatinine 10.5mg/dL (0.6-1.0) Estimated GFR (Cockcroft-Gault) 4.2 Glucose Level 101mg/dL (70-99) Calcium Level 8.3mg/dL (8.5-10.1) Phosphorus Level 6.6mg/dL (2.6-4.7) Magnesium Level 2.9mg/dL (1.8-2.4) Albumin 3.2g/dL (3.4-5.0) Test 01/19/17 03:20 01/19/17 06:35 01/19/17 07:24 01/19/17 09:32 White Blood Count 5.6x10^3/uL (4.0-11.0) Red Blood Count 4.04x10^6/uL (3.50-5.40) Hemoglobin 11.6g/dL (12.0-15.5) Hematocrit 35.8% (36.0-47.0) Mean Corpuscular Volume 89fL (79-100) Mean Corpuscular Hemoglobin 29pg (25-35) Mean Corpuscular Hemoglobin Concent 33g/dL (31-37) Red Cell Distribution Width 24.3% (11.5-14.5) Platelet Count 245x10^3/uL (140-400) Neutrophils (%) (Auto) 59% (31-73) Lymphocytes (%) (Auto) 24% (24-48) Monocytes (%) (Auto) 12% (0-9) Eosinophils (%) (Auto) 5% (0-3) Basophils (%) (Auto) 1% (0-3) Neutrophils # (Auto) 3.3x10^3uL (1.8-7.7) Lymphocytes # (Auto) 1.3x10^3/uL (1.0-4.8) Monocytes # (Auto) 0.7x10^3/uL (0.0-1.1) Eosinophils # (Auto) 0.3x10^3/uL (0.0-0.7) Basophils # (Auto) 0.0x10^3/uL (0.0-0.2) Sodium Level 132mmol/L (136-145) Potassium Level 6.2mmol/L (3.5-5.1) Chloride Level 96mmol/L (98-107) Carbon Dioxide Level 25mmol/L (21-32) Anion Gap 11 (6-14) Blood Urea Nitrogen 110mg/dL (7-20) Creatinine 11.0mg/dL (0.6-1.0) Estimated GFR (Cockcroft-Gault) 4.0 Glucose Level 96mg/dL (70-99) Calcium Level 8.0mg/dL (8.5-10.1) Phosphorus Level 6.7mg/dL (2.6-4.7) Magnesium Level 2.8mg/dL (1.8-2.4) Albumin 3.0g/dL (3.4-5.0) Glucose (Fingerstick) 31mg/dL (70-99) 158mg/dL (70-99) 123mg/dL (70-99) Medications Current Medications Magnesium Sulfate/ Dextrose (Magnesium Sulfate PREMIX 2GM) 50 ml @ 25 mls/hr PRN DAILY PRN IV for Mag < 1.7 on am labs; Start 01/16/17 at 15:30 Heparin Sodium (Porcine) (Heparin Sodium) 10,000 unit STK-MED ONCE .ROUTE ; Start 01/16/17 at 15:29; Stop 01/16/17 at 15:30; Status DC Lidocaine/Sodium Bicarbonate 20 ml 20 ml STK-MED ONCE IJ ; Start 01/16/17 at 15: 30; Stop 01/16/17 at 15:31; Status DC Heparin Sodium/ Sodium Chloride 500 ml @ As Directed STK-MED ONCE .ROUTE ; Start 01/16/17 at 15:30; Stop 01/16/17 at 15:31; Status DC Lidocaine/Sodium Bicarbonate (Buffered Lidocaine 1%) 3 ml 1X ONCE IJ Last administered on 01/16/17 16:11; Start 01/16/17 at 15:45; Stop 01/16/17 at 15:46 ; Status DC Heparin Sodium/ Sodium Chloride 60 unit 1X ONCE IV Last administered on 16:11; Start 01/16/17 at 15:45; Stop 01/16/17 at 15:46; Status DC Heparin Sodium (Porcine) (Heparin Sodium) 2,500 unit 1X ONCE INT CAT Last administered on 01/16/17 16:10; Start 01/16/17 at 15:45; Stop 01/16/17 at 15:46 ; Status DC Ondansetron HCl (Zofran) 4 mg PRN Q8HRS PRN IV NAUSEA/VOMITING; Start 01/16/17 at 16:15; Stop 01/17/17 at 15:46; Status DC Acetaminophen (Tylenol) 650 mg PRN Q4HRS PRN PO FEVER; Start 01/16/17 at 16:15 ; Stop 01/17/17 at 16:14; Status DC Acetaminophen (Tylenol) 325 mg PRN Q6HRS PRN PO MILD PAIN / TEMP; Start at 17:30 Acetaminophen/ Hydrocodone Bitart (Lortab 5/325) 1 tab PRN Q6HRS PRN PO MODERATE TO SEVERE PAIN; Start 01/16/17 at 17:30 Hydralazine HCl (Apresoline) 10 mg PRN Q4HRS PRN IVP ELEVATED BP, SEE COMMENTS ; Start 01/16/17 at 17:30 Ondansetron HCl (Zofran) 4 mg PRN Q8HRS PRN IV NAUSEA/VOMITING; Start 01/16/17 at 17:30 Albuterol Sulfate (Ventolin Neb Soln) 2.5 mg PRN Q4HRS PRN NEB SHORTNESS OF BREATH; Start 01/16/17 at 17:30 Acetaminophen (Tylenol) 325 mg PRN Q6HRS PRN PO MILD PAIN / TEMP; Start at 17:30; Status UNV Acetaminophen/ Hydrocodone Bitart (Lortab 5/325) 1 tab PRN Q6HRS PRN PO MODERATE TO SEVERE PAIN; Start 01/16/17 at 17:30; Status UNV Hydralazine HCl (Apresoline) 10 mg PRN Q4HRS PRN IVP ELEVATED BP, SEE COMMENTS ; Start 01/16/17 at 17:30; Status UNV Ondansetron HCl (Zofran) 4 mg PRN Q8HRS PRN IV NAUSEA/VOMITING; Start 01/16/17 at 17:30; Status UNV Albuterol Sulfate 2.5 mg 2.5 mg PRN Q4HRS PRN NEB SHORTNESS OF BREATH; Start at 17:30; Status UNV Sodium Chloride (Iv Sodium Chloride 0.9% 1000ml Bag) 1,000 ml @ 1,000 mls/hr Q1H PRN IV hypotension; Start 01/16/17 at 20:20; Stop 01/17/17 at 02:19; Status DC Sodium Chloride (Normal Saline Flush) 10 ml 1X PRN PRN IV AP catheter pack; Start 01/16/17 at 20:30; Stop 01/17/17 at 20:29; Status DC Sodium Chloride (Normal Saline Flush) 10 ml 1X PRN PRN IV SPINE SURGEON catheter pack; Start 01/16/17 at 20:30; Stop 01/17/17 at 20:29; Status DC Info (PHARMACY MONITORING -- do not chart) 1 each PRN DAILY PRN MC SEE COMMENTS ; Start 01/16/17 at 20:30 Info (PHARMACY MONITORING -- do not chart) 1 each PRN DAILY PRN MC SEE COMMENTS ; Start 01/16/17 at 20:30; Status UNV Amlodipine Besylate (Norvasc) 10 mg DAILY PO Last administered on 01/18/17 08: 37; Start 01/18/17 at 09:00 Aspirin (Ecotrin) 81 mg DAILY PO Last administered on 01/18/17 08:36; Start at 09:00 Atorvastatin Calcium (Lipitor) 10 mg HS PO Last administered on 01/18/17 21:34 ; Start 01/17/17 at 21:00 Cinacalcet (Sensipar) 30 mg DAILYWSUP PO Last administered on 01/18/17 16:53; Start 01/17/17 at 17:00 Ferrous Sulfate (Feosol) 325 mg DAILY PO Last administered on 01/18/17 08:37; Start 01/18/17 at 09:00 Furosemide (Lasix) 40 mg DAILY PO Last administered on 01/18/17 08:37; Start 01/18/17 at 09:00 Calcium Acetate (Phoslo) 1,334 mg TIDWMEALS PO Last administered on 01/18/17 16:53; Start 01/17/17 at 17:00 Clonidine HCl (Catapres) 0.2 mg TID PO Last administered on 01/18/17 08:35; Start 01/17/17 at 15:45 Losartan Potassium (Cozaar) 100 mg DAILY PO Last administered on 01/18/17 08: 36; Start 01/18/17 at 09:00 Atorvastatin Calcium (Lipitor) 5 mg QHS PO ; Start 01/17/17 at 21:00; Stop 01/17 at 21:00; Status DC Chlorthalidone (Thalitone) 12.5 mg TID PO Last administered on 01/18/17 08:37 ; Start 01/17/17 at 21:00 Dextrose (Dextrose 50%-Water Syringe) 25 gm 1X ONCE IV Last administered on 05:16; Start 01/19/17 at 05:00; Stop 01/19/17 at 05:01; Status DC Insulin Human Regular (Novolin R Vial) 10 unit 1X ONCE IV ; Start 01/19/17 at 05 :00; Stop 01/19/17 at 05:00; Status DC Insulin Human Regular (Novolin R Vial) 10 unit 1X ONCE IV Last administered on 01/19/17 05:29; Start 01/19/17 at 05:00; Stop 01/19/17 at 05:01; Status DC Dextrose 25 gm 25 gm 1X ONCE IV Last administered on 01/19/17 06:51; Start 01/19/17 at 07:00; Stop 01/19/17 at 07:01; Status DC Sodium Chloride 1,000 ml @ 1,000 mls/hr Q1H PRN IV hypotension; Start 01/19/17 at 08:55; Stop 01/19/17 at 14:54 Albumin Human (Albuminar) 200 ml @ 200 mls/hr 1X PRN PRN IV Hypotension; Start 01/19/17 at 09:00; Stop 01/19/17 at 14:59 Sodium Chloride (Normal Saline Flush) 10 ml 1X PRN PRN IV AP catheter pack; Start 01/19/17 at 09:00; Stop 01/20/17 at 08:59 Sodium Chloride 10 ml 10 ml 1X PRN PRN IV SPINE SURGEON catheter pack; Start 01/19/17 at 09 :00; Stop 01/20/17 at 08:59 Sodium Chloride (Iv Sodium Chloride 0.9% 1000ml Bag) 1,000 ml @ 400 mls/hr Q2H30M PRN IV PATENCY; Start 01/19/17 at 08:55; Stop 01/19/17 at 20:54 Info (PHARMACY MONITORING -- do not chart) 1 each PRN DAILY PRN MC SEE COMMENTS ; Start 01/19/17 at 09:00 Active Scripts Active Reported Sensipar (Cinacalcet Hcl) 30 Mg Tablet 1 Tab PO DAILYWSUP Calcium Acetate 667 Mg Tablet 1,334 Mg PO TIDWMEALS Atorvastatin Calcium 10 Mg Tablet 10 Mg PO HS Clorpres 0.2-15 Tablet (Clonidine Hcl/Chlorthalidone) 1 Each Tablet 1 Each PO TID Lovastatin 10 Mg Tablet 10 Mg PO HS Losartan Potassium 100 Mg Tablet 100 Mg PO DAILY Amlodipine Besylate 10 Mg Tablet 10 Mg PO DAILY Ferrous Sulfate 325 Mg Tablet 1 Tab PO DAILY Lasix (Furosemide) 40 Mg Tablet 1 Tab PO DAILY Aspir 81 (Aspirin) 81 Mg Tablet. 1 Tab PO DAILY Vitals/I & O Vital Sign - Last 24 Hours 01/18/17 01/18/17 01/18/17 01/18/17 11:00 13:55 15:00 19:00 Temp 98.2 97.2 98.7 98.2 97.2 98.7 Pulse 60 60 60 55 Resp 16 24 15 B/P 100/56 100/56 114/54 122/55 Pulse Ox 96 98 94 O2 Delivery Room Air Room Air Room Air 01/18/17 01/18/17 01/19/17 01/19/17 20:00 22:50 02:57 07:00 Temp 98.4 98.5 97.4 98.4 98.5 97.4 Pulse 53 54 71 Resp 16 17 B/P 122/56 123/49 140/57 Pulse Ox 94 95 93 O2 Delivery Room Air Room Air Room Air Room Air 01/19/17 07:47 Pulse Ox 94 O2 Delivery Room Air Intake and Output 01/18/17 01/18/17 01/19/17 14:59 22:59 06:59 Intake Total 1540 ml 720 ml Output Total 800 ml 250 ml 100 ml Balance 740 ml 470 ml -100 ml ELIZABETH HINOJOSA MD January 19, 2017 09:59
[2017-01-19] MEDS ORDERED: LIDOCAINE 1% / SOD BICARB 8.4% 20 ML VIAL. IJ ONE ×2 (14:23→15:00)
[2017-01-19] MEDS ORDERED: IODIXANOL 320 MG/ML 100 ML VIAL. ONE (14:23)
[2017-01-19] MEDS ORDERED: MIDAZOLAM HCL/PF 5 MG/5 ML VIAL. ONE (14:39)
[2017-01-19] MEDS ORDERED: fentaNYL PF VIAL 250 MCG/5 ML VIAL ONE (14:39)
[2017-01-19 15:00] VITALS: BP 150/66
[2017-01-19] MEDS ORDERED: MIDAZOLAM HCL/PF 5 MG/5 ML VIAL. IV ONE (15:00)
[2017-01-19] MEDS ORDERED: IODIXANOL 320 MG/ML 100 ML VIAL. IART ONE (15:00)
[2017-01-19] MEDS ORDERED: ALTEPLASE 2 MG VIAL INT CAT ONE (15:00)
[2017-01-19] MEDS ORDERED: fentaNYL PF VIAL 250 MCG/5 ML VIAL IV ONE (15:00)
[2017-01-19] MEDS ORDERED: HEPARIN for IV BOLUS 10,000 UNIT/10 ML VIAL. ONE (15:14)
[2017-01-19] MEDS ORDERED: HEPARIN for IV BOLUS 10,000 UNIT/10 ML VIAL. IV ONE (15:30)
[2017-01-19 16:04] VITALS: BP 162/62
--- NOTE | 2017-01-19 16:25 | PDOC ---
MODERATE SEDATION ASSESSMENT RISKS/ALTERNATIVES Risks/Alternatives Risks and alternatives of this type of sedation and procedure discussed with: RISK/ALTERNATIVES: Patient H & P ON CHART H & P H & P on chart and reviewed for co-morbid conditions and appropriate labs. H&P ON CHART: Yes STATUS PREG STATUS ASSESSED: N/A MEDS/ALLERGIES REVIEWED Meds/Allergies Reviewed Medications and Allergies including time and route of recently administered narcotics and sedatives. MEDS/ALLERGIES REVIEWED: Yes ASA RATING ASA RATING: II AIRWAY ASSESSMENT Airway Assessment Airway patency, oral function limitations, presence of caps, crowns, dentures, partials, and ability to extend neck assessed. AIRWAY ASSESSMENT: Yes MALLAMPATI SCORE MALLAMPATI SCORE: II PRE-SEDATION ASSESSMENT PRE-SEDATION ASSESSMENT: Yes BENITA DYSON MD January 19, 2017 16:25
--- NOTE | 2017-01-19 16:29 | PDOC ---
Exam [employer] District Supervisor Pet[employer] Products District Supervisor Nickie Motor Installer Motor Installer Sheldon Ovalle Pre-Procedure Diagnosis Pre-Procedure Diagnosis 86 YO female with ESRD and with no palpable pulse within left forearm AVG. Post-Procedure Diagnosis Post-Procedure Diagnosis Left forearm AVG thrombosis---successful declot. 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 Procedure Performed Procedure Performed t-PA declot AVG. AV shuntogram. DCB DISTRIBUTION COLLECTION OPERATOR VA. DISTRIBUTION COLLECTION OPERATOR venous limb of graft. Type of Anesthesia Type of Anesthesia Local + mod sedation Estimated Blood Loss EBL: 50 cc Condition of Patient Condition of Patient Stable. Sedated. No apparent complication. Disposition Disposition From IR return to [facility] for recovery. F/u with Renal. OK to use left forearm AVG for HD. Full report to follow. BENITA DYSON MD January 19, 2017 16:29
[2017-01-19] MEDS ORDERED: HYDR-2868 PO (17:35)
[2017-01-19] MEDS ORDERED: SEVE800T9 PO (17:35)
[2017-01-19] MEDS ORDERED: MULT-23 PO (17:35)
[2017-01-19] MEDS ORDERED: CLON0.2T TRANSTRACH (17:35)
[2017-01-19] MEDS: CINACALCET HCL 30 MG TABLET PO SCH (17:37)
[2017-01-19 20:09] LABS: HEP B SURFACE ABDY Reactive (.)
[2017-01-19] MEDS: ATORVASTATIN CALCIUM 10 MG TABLET. PO SCH (21:02)
[2017-01-19 23:00] VITALS: BP 104/44
[2017-01-20 07:00] VITALS: BP 133/32
--- NOTE | 2017-01-20 07:32 | RAD ---
Alteplase declot AV graft AV shuntogram DCB SILVERLIGHT DEVELOPER venous anastomosis Indication: 86-year-old female with end stage renal disease. Her left forearm AV graft is nonfunctional, without palpable pulse. AV graft declot procedure has been requested by renal. Fluoroscopy time: 12.1 minutes Kerma-area product: 18 Gycm2 Moderate sedation: 70 minutes moderate sedation was provided utilizing a total of 4 mg Versed and 200 mcg fentanyl, IV. The patient was appropriately monitored by a qualified independent observer throughout the time of moderate sedation. Contrast material: 80 cc Visipaque 320 Sterility: All elements of maximal sterile barrier technique, including the use of a cap, mask, sterile gown, sterile gloves, large sterile sheet, appropriate hand hygiene, and 2% chlorhexidine for cutaneous antisepsis (or acceptable alternative antiseptic per current guidelines) were utilized. Anticoagulation: 3000 units IV heparin. Procedure: Informed consent was obtained from the patient. She was placed supine on the angiography table. Conscious sedation was provided with IV Versed and fentanyl. Left forearm was prepped and draped in the usual sterile fashion, utilizing all elements of maximal sterile barrier technique, as described above. Alteplase declot AV graft: Preliminary ultrasound examination over the patient's left forearm AV graft confirmed complete graft thrombosis. A site suitable for ultrasound-guided insertion of an arterial limb access sheath was selected and a long loop of the AV graft --- this site was documented with a single hard copy ultrasound image. Using aseptic technique, local anesthesia, and direct ultrasound guidance, a micropuncture sheath was successfully introduced into loop of the thrombosed AV graft, with its tip directed centrally into arterial limb. A second skin site suitable for ultrasound-guided insertion of a venous limb access sheath was then selected--- this site was documented with a single hard copy ultrasound image. Using aseptic technique, local anesthesia, and direct ultrasound guidance, a 21-gauge micropuncture needle was successfully introduced into distal arterial limb of the AV graft, with its tip directed peripherally. This needle was then exchanged over a guidewire for a short 6 Martiniquais sheath. A Speedlyser was then advanced through the 6 Martiniquais sheath and was positioned with its infusion length extending from distal arterial limb through distal venous limb, near venous anastomosis. 2 mg t-PA was then forcibly laced through the venous limb Speedlyser catheter , and 2 mg t-PA was gently injected through the arterial limb micropuncture sheath. The t-PA was left to dwell approximately 10 minutes. AV shuntogram: Following alteplase thrombolysis, the Speedlyser catheter was exchanged over a Glidewire for a long 5 Martiniquais Berenstein catheter, which was inserted through the distal arterial limb 6 Martiniquais sheath, was advanced across the venous anastomosis, and was initially positioned within left subclavian vein. Visipaque 320 was injected and "pull-back" AV shuntogram DSA images were obtained. Findings: Left axillary vein, subclavian vein, innominate vein, and superior vena cava are widely patent. Indwelling right IJ temporary dialysis catheter was noted. The basilic or brachial outflow vein is also widely patent above a focal severe stricture at venous anastomosis. Only a minimal amount of residual intraluminal thrombus was noted within the AV graft, following the thrombolysis procedure. DCB SILVERLIGHT DEVELOPER venous anastomosis: Following IV bolus administration of 3000 units heparin, the Berenstein catheter, utilized for the AV shuntogram, was exchanged over a Glidewire for a 6 mm x 40 mm conquest SILVERLIGHT DEVELOPER balloon which was utilized to perform prolonged (5 minutes) high-pressure (20 rolanda) balloon dilatation of the venous anastomotic stricture. This resulted in near complete resolution of the stricture. The 6 mm conquest balloon was then exchanged for a 6 mm x 40 mm Tradeostronic paclitaxel-coated SILVERLIGHT DEVELOPER balloon, which was inflated across the venous anastomosis to a peak pressure of 14 rolanda for 3 minutes. Post angioplasty DSA images were then obtained. Those images revealed residual 30% stenosis at venous anastomosis. Therefore, further balloon dilatation was considered indicated. A 7 mm x 40 mm conquest SILVERLIGHT DEVELOPER balloon was then utilized to perform final balloon dilatation of venous anastomosis to a peak pressure of 20 [place] for 4 minutes. This 7 mm conquest SILVERLIGHT DEVELOPER balloon was then utilized to perform balloon dilatation of areas of persistent luminal irregularity within the venous limb of the AV graft. Attention was then turned to amish of arterial inflow. The micropuncture sheath, previously inserted into loop of the AV graft, extending into arterial limb, was exchanged over a guidewire for a 5 [place] short sheaths. A 5 mm x 20 mm Cordis Powerflex SILVERLIGHT DEVELOPER balloon was then advanced through the 5 [place] sheath over a Glidewire into distal left brachial artery. The Powerflex SILVERLIGHT DEVELOPER balloon was gently inflated and was pulled 3 times across arterial anastomosis and arterial limb. This resulted in recurrent removal of residual arterial limb arterial plug, with amish of brisk arterial inflow. Patient tolerated the procedures well without apparent complication. The two AV graft sheaths were removed and hemostasis was achieved utilizing 2-0 silk in a pursestring fashion. A bleeding, previous puncture site within venous limb of the AV graft was also control with 2-0 silk. Impression: Successful, uneventful left forearm AV graft alteplase thrombolysis, followed by successful, uneventful balloon angioplasty of venous anastomotic stricture, as described.
[2017-01-20 08:00] LABS: BASO # 0.1 x10^3/uL (0.0-0.2); BASO % 1 % (0-3); EOS % 4 % (0-3); HEMATOCRIT 34.6 % (36.0-47.0); HEMOGLOBIN 11.2 g/dL (12.0-15.5); LYMPH % 20 % (24-48); MEAN CORPUSCULAR HEMOGLOBIN 29 pg (25-35); MEAN CORPUSCULAR HGB CONC 32 g/dL (31-37); MEAN CORPUSCULAR VOLUME 89 fL (79-100); MONO % 12 % (0-9); NEUT % 63 % (31-73); PLATELET COUNT 213 x10^3/uL (140-400); RED BLOOD COUNT 3.89 x10^6/uL (3.50-5.40); RED CELL DISTRIBUTION WIDTH 24.6 % (11.5-14.5); WHITE BLOOD COUNT 5.1 x10^3/uL (4.0-11.0)
[2017-01-20 08:05] LABS: ALBUMIN 2.9 g/dL (3.4-5.0); CALCIUM 7.9 mg/dL (8.5-10.1); CREATININE 7.6 mg/dL (0.6-1.0); GFR 6.2; MAGNESIUM 2.3 mg/dL (1.8-2.4); PHOSPHORUS 5.8 mg/dL (2.6-4.7)
[2017-01-20 08:07] LABS: POTASSIUM 5.3 mmol/L (3.5-5.1)
[2017-01-20] MEDS: CALCIUM ACETATE 667 MG CAPSULE PO SCH ×3 (08:31→17:00)
[2017-01-20] MEDS: ASPIRIN ENTERIC COATED 81 MG TABLET.DR. PO SCH (08:32)
[2017-01-20] MEDS: cloNIDine HCL 0.2 MG TABLET PO SCH ×2 (08:32→14:00)
[2017-01-20] MEDS: amLODIPine BESYLATE 10 MG TABLET PO SCH (08:32)
[2017-01-20] MEDS: CHLORTHALIDONE 25 MG TABLET. PO SCH ×2 (08:33→14:00)
[2017-01-20] MEDS: FERROUS SULFATE 325 MG TABLET. PO SCH (08:33)
[2017-01-20] MEDS: FUROSEMIDE 40 MG TABLET. PO SCH (08:33)
[2017-01-20] MEDS: LOSARTAN POTASSIUM 50 MG TABLET. PO SCH (08:34)
--- NOTE | 2017-01-20 10:28 | PDOC ---
SUBJECTIVE ROS ESRD Doing and feeling well CVS: no Orthopnea, no CP RESP: no SOB, no CARRERA GI: no Nausea, no Vomiting : no Dysuria, no Urgency OBJECTIVE Vital Signs Vital Signs Date Time Temp Pulse Resp B/P Pulse Ox O2 Delivery O2 Flow Rate FiO2 01/20/17 08:34 56 133/32 01/20/17 07:45 Room Air 01/20/17 07:00 97.7 18 95 97.7 01/19/17 20:00 2.0 I & 0 Intake and Output 01/20/17 07:00 Intake Total 680 ml Balance 680 ml Intake Oral 680 ml # Voids 5 PHYSICAL EXAM Physical Exam General Appearance: Awake Alert Oriented x 3 In no Distress Eyes: VIsion Unchanged Conjunctiva Normal EN: No EN Drainage Mucous Memb. moist Neck: no JVD no JVP Supple no Thyromegaly CVS: S1 S2 + Murmur No Gallop No Rub + Edema Resp: no Rales no Rhonchi no Acc. Muscle use GI: BAS +ve NO Bruit Non Tender Non Distended; morbidly obese : no CVA tenderness; no Suprapubic Tenderness Assessment & Plan ESRD: Dialysis as below F 180 NR 2 Hrs 2 K 2.5 Ca 140 Na 35 HC03 Qb 350 + Qd 500+ Heparin 0 Units Uf to dry weight as tolerated May give 25-50 gms of 25% Albumin if needed to maintain Hemodynamic stability Treatment plan reviewed and discussed with weblogic administrator non-functioning AV Access - now s/p declott ; D/c Temp line if AVG works OK ^K - HD later today h/o Anemia of CKD : Epogen if needed for hgb < 10. Transfuse with next HD as needed. HTN: Better after home BP Meds are restarted. Current BP meds reviewed. See orders for changes. Bone & Mineral: check phos and alter binder regimen as needed Low ALb - Encourage PO intake of protein Discussed Plan of Care and prognosis etc. at length with family COMMENT/RELEVANT DATA Meds Current Medications Medications (Trade) Dose Ordered Sig/Virgil Start Time Stop Time Status Last Admin Dose Admin Acetaminophen (Tylenol) 325 mg PRN Q6HRS PRN 01/16/17 17:30 UNV Acetaminophen/ Hydrocodone Bitart (Lortab 5/325) 1 tab PRN Q6HRS PRN 01/16/17 17:30 UNV Albumin Human (Albuminar) 200 ml @ 200 mls/hr 1X PRN PRN 01/19/17 09:00 01/19/17 14:59 DC Albuterol Sulfate (Ventolin Neb Soln) 2.5 mg PRN Q4HRS PRN 01/16/17 17:30 UNV Alteplase, Recombinant (Cathflo) 4 mg 1X ONCE 01/19/17 15:00 01/19/17 15:01 DC 01/19/17 15:58 4 MG Amlodipine Besylate (Norvasc) 10 mg DAILY 01/18/17 09:00 01/18/17 08:37 10 MG Aspirin (Ecotrin) 81 mg DAILY 01/18/17 09:00 01/20/17 08:32 81 MG Atorvastatin Calcium (Lipitor) 5 mg QHS 01/17/17 21:00 01/17/17 21:00 DC Calcium Acetate (Phoslo) 1,334 mg TIDWMEALS 01/17/17 17:00 01/20/17 08:31 1,334 MG Chlorthalidone (Thalitone) 12.5 mg TID 01/17/17 21:00 01/20/17 08:33 12.5 MG Cinacalcet (Sensipar) 30 mg DAILYWSUP 01/17/17 17:00 01/19/17 17:37 30 MG Clonidine HCl (Catapres) 0.2 mg TID 01/17/17 15:45 01/20/17 08:32 0.2 MG Dextrose (Dextrose 50%-Water Syringe) 25 gm 1X ONCE 01/19/17 05:00 01/19/17 05:01 DC 01/19/17 05:16 25 GM Dextrose 25 gm 25 gm 1X ONCE 01/19/17 07:00 01/19/17 07:01 DC 01/19/17 06:51 25 GM Fentanyl Citrate (Fentanyl 5ml Vial) 250 mcg 1X ONCE 01/19/17 15:00 01/19/17 15:01 DC 01/19/17 15:59 250 MCG Ferrous Sulfate (Feosol) 325 mg DAILY 01/18/17 09:00 01/20/17 08:33 325 MG Furosemide (Lasix) 40 mg DAILY 01/18/17 09:00 01/20/17 08:33 40 MG Heparin Sodium (Porcine) (Heparin Sodium) 3,000 unit 1X ONCE 01/19/17 15:30 01/19/17 15:31 DC 01/19/17 16:00 3,000 UNIT Heparin Sodium/ Sodium Chloride 1,000 unit 1X ONCE 01/19/17 15:00 01/19/17 15:01 DC 01/19/17 15:57 1,000 UNIT Hydralazine HCl (Apresoline) 10 mg PRN Q4HRS PRN 01/16/17 17:30 UNV Info (PHARMACY MONITORING -- do not chart) 1 each PRN DAILY PRN 01/19/17 09:00 01/19/17 14:45 DC Insulin Human Regular (Novolin R Vial) 10 unit 1X ONCE 01/19/17 05:00 01/19/17 05:01 DC 01/19/17 05:29 10 UNIT Iodixanol (Visipaque 320) 100 ml 1X ONCE 01/19/17 15:00 01/19/17 15:01 DC 01/19/17 15:00 80 ML Lidocaine/Sodium Bicarbonate (Buffered Lidocaine 1%) 20 ml 1X ONCE 01/19/17 15:00 01/19/17 15:01 DC 01/19/17 15:58 20 ML Losartan Potassium (Cozaar) 100 mg DAILY 01/18/17 09:00 01/18/17 08:36 100 MG Magnesium Sulfate/ Dextrose (Magnesium Sulfate PREMIX 2GM) 50 ml @ 25 mls/hr PRN DAILY PRN 01/16/17 15:30 Midazolam HCl (Versed) 5 mg 1X ONCE 01/19/17 15:00 01/19/17 15:01 DC 01/19/17 15:58 4 MG Ondansetron HCl (Zofran) 4 mg PRN Q8HRS PRN 01/16/17 17:30 UNV Sodium Chloride (Iv Sodium Chloride 0.9% 1000ml Bag) 1,000 ml @ 400 mls/hr Q2H30M PRN 01/19/17 08:55 01/19/17 20:54 DC Sodium Chloride (Normal Saline Flush) 10 ml 1X PRN PRN 01/19/17 09:00 01/20/17 08:59 DC Sodium Chloride 10 ml 10 ml 1X PRN PRN 01/19/17 09:00 01/20/17 08:59 DC Lab Laboratory Tests Test 01/19/17 16:34 01/19/17 20:58 01/20/17 06:10 01/20/17 07:03 Glucose (Fingerstick) 97mg/dL (70-99) 146mg/dL (70-99) 100mg/dL (70-99) White Blood Count 5.1x10^3/uL (4.0-11.0) Red Blood Count 3.89x10^6/uL (3.50-5.40) Hemoglobin 11.2g/dL (12.0-15.5) Hematocrit 34.6% (36.0-47.0) Mean Corpuscular Volume 89fL (79-100) Mean Corpuscular Hemoglobin 29pg (25-35) Mean Corpuscular Hemoglobin Concent 32g/dL (31-37) Red Cell Distribution Width 24.6% (11.5-14.5) Platelet Count 213x10^3/uL (140-400) Neutrophils (%) (Auto) 63% (31-73) Lymphocytes (%) (Auto) 20% (24-48) Monocytes (%) (Auto) 12% (0-9) Eosinophils (%) (Auto) 4% (0-3) Basophils (%) (Auto) 1% (0-3) Neutrophils # (Auto) 3.2x10^3uL (1.8-7.7) Lymphocytes # (Auto) 1.0x10^3/uL (1.0-4.8) Monocytes # (Auto) 0.6x10^3/uL (0.0-1.1) Eosinophils # (Auto) 0.2x10^3/uL (0.0-0.7) Basophils # (Auto) 0.1x10^3/uL (0.0-0.2) Sodium Level 133mmol/L (136-145) Potassium Level 5.3mmol/L (3.5-5.1) Chloride Level 96mmol/L (98-107) Carbon Dioxide Level 29mmol/L (21-32) Anion Gap 8 (6-14) Blood Urea Nitrogen 61mg/dL (7-20) Creatinine 7.6mg/dL (0.6-1.0) Estimated GFR (Cockcroft-Gault) 6.2 Glucose Level 92mg/dL (70-99) Calcium Level 7.9mg/dL (8.5-10.1) Phosphorus Level 5.8mg/dL (2.6-4.7) Magnesium Level 2.3mg/dL (1.8-2.4) Albumin 2.9g/dL (3.4-5.0) VELIA AMARAL MD January 20, 2017 10:28
[2017-01-20 11:01] VITALS: BP 112/32
--- NOTE | 2017-01-20 14:25 | PDOC3 ---
Discharge Summary [facility] Date of Admission: Jan 16, 2017 Discharge Date: January 20, 2017 Admitting Diagnosis 1. Nonfunctioning arteriovenous graft, left side. 2. End-stage renal disease, on hemodialysis. 3. Hypertension, not controlled. 4. Diabetes mellitus, non-insulin dependent. 5. Anemia of chronic disease. 6. Hyperparathyroidism. 7. Critical hyperkalemia 8. Critical Hypoglycemia, Problems: Final Diagnosis CONSULTS ir renal Brief Hospital Course Ms. Mckenna is a 86 old f, ESRD ON hd, came for left AV graft non functioning, got IR AVG thrombolysis on 01/19, will try HD today, dc if works. dc time 35min General: Alert, Oriented X3 Heart: Normal S1, Normal S2 Lungs: Clear Abdomen: Normal bowel sounds, Soft Patient History: Problems: Disposition home CONDITION AT DISCHARGE: Improved Diet renal Scheduled Aspirin (Aspir 81) 1 TAB PO DAILY (Reported) Calcium Acetate (Calcium Acetate) 1,334 MG PO TIDWMEALS (Reported) Cinacalcet Hcl (Sensipar) 1 TAB PO DAILYWSUP (Reported) Clonidine Hcl (Clonidine Hcl) 0.2 MG TRANSTRACH WEEKLY (Reported) Ferrous Sulfate (Ferrous Sulfate) 1 TAB PO DAILY (Reported) Furosemide (Lasix) 1 TAB PO DAILY (Reported) Hydralazine Hcl (Hydralazine Hcl) 1 TAB PO TID (Reported) Losartan Potassium (Losartan Potassium) 100 MG PO DAILY (Reported) Lovastatin (Lovastatin) 10 MG PO HS (Reported) Multivitamin, Min Cmb#25/Fa/D3 (Dialyvite [place] D Tablet) 1 EACH PO DAILY ( Reported) Sevelamer Carbonate (Renvela) 2 TAB PO TIDWMEALHC (Reported) Scheduled PRN Amlodipine Besylate (Amlodipine Besylate) 10 MG PO PRN DAILY PRN PRN HYPERTENSION, SEE COMMENTS (Reported) Discontinued Medications Atorvastatin Calcium (Atorvastatin Calcium) 10 MG PO HS (Reported) Clonidine Hcl/Chlorthalidone (Clorpres 0.2-15 Tablet) 1 EACH PO TID (Reported) Follow Up renal in 2 weeks SATHYA ANTHONY MD January 20, 2017 14:25
[2017-01-20] MEDS ORDERED: IV NORMAL SALINE 1000ML BAG 1,000 ML IV PRN ×2 (14:29)
[2017-01-20] MEDS ORDERED: ALBUMIN HUMAN 25% 200 ML IV PRN (14:30)
[2017-01-20] MEDS ORDERED: diphenhydrAMINE 50 MG/ML VIAL IV PRN ×2 (14:30)
[2017-01-20] MEDS ORDERED: 0.9 % SODIUM CHLORIDE 10 ML DISP.SYRIN. IV PRN (14:30)
[2017-01-20] MEDS ORDERED: DIALYSIS PATIENT. MC PRN (14:30)
[2017-01-20 14:58] VITALS: BP 115/32
[2017-01-20] MEDS: CINACALCET HCL 30 MG TABLET PO SCH (17:00)
== END 2017-01-20 19:35 | disposition still patient (30) | DRG 252 ==
LOC: ER 12:58 → 5 SOUTH 16:09
PROVIDERS: ADMIT Internal Medicine; ATTEND Internal Medicine
PROC: 05HM33Z Insertion of Infusion Device into Right Internal Jugular Vein, Percutaneous Approach (ICD-10-PCS; 2017-01-16)
PROC: B543ZZA Ultrasonography of Right Jugular Veins, Guidance (ICD-10-PCS; 2017-01-16)
PROC: 03C83ZZ Extirpation of Matter from Left Brachial Artery, Percutaneous Approach (ICD-10-PCS; principal; 2017-01-19)
PROC: 3E05317 Introduction of Other Thrombolytic into Peripheral Artery, Percutaneous Approach (ICD-10-PCS; 2017-01-19)
PROC: B51W1ZZ Fluoroscopy of Dialysis Shunt/Fistula using Low Osmolar Contrast (ICD-10-PCS; 2017-01-19)
PROC: 5A1D60Z (ICD-10-PCS; 2017-01-19)
PROC: 057Y3ZZ Dilation of Upper Vein, Percutaneous Approach (ICD-10-PCS; 2017-01-19)
DX: T82.868A Thrombosis due to vascular prosthetic devices, implants and grafts, initial encounter (principal); N18.6 End stage renal disease; I12.0 Hypertensive chronic kidney disease with stage 5 chronic kidney disease or end stage renal disease; D63.8 Anemia in other chronic diseases classified elsewhere; E11.22 Type 2 diabetes mellitus with diabetic chronic kidney disease; E11.649 Type 2 diabetes mellitus with hypoglycemia without coma; E21.3 Hyperparathyroidism, unspecified; E78.00 Pure hypercholesterolemia, unspecified; E78.5 Hyperlipidemia, unspecified; E66.9 Obesity, unspecified; E87.5 Hyperkalemia; Y83.8 Other surgical procedures as the cause of abnormal reaction of the patient, or of later complication, without mention of misadventure at the time of the procedure; Z99.2 Dependence on renal dialysis; Y92.89 Other specified places as the place of occurrence of the external cause; Z68.37 Body mass index [BMI] 37.0-37.9, adult
CPT/HCPCS: 36415; 36556; 36901; 36905; 71010; 76937; 80048; 80069; 82947; 83735; 85007; 85027; 85610; 85730; 86706; 87340; 87341; 93931; 94250; 94760; 96374; A4215; C1757; C1758; C1769; C1892; C1894; C2623; J1815; J2250; J2997; J3010; J7042; 99285-25

== ENCOUNTER 2017-02-02 08:05 | Outpatient (CLI) | payer OTHER ==
[~2017-02-02] VITALS: Ht 154.9 cm; Wt 85.7 kg
[2017-02-02] VITALS (7 sets, daily range): BP systolic 193–221; BP diastolic 86–112
[~2017-02-02 08:05] MED LIST changes: +ATOR10TA60 PO; +CALC667T PO; +CINA30TA PO; +CLON0.2T TRANSTRACH; +HYDR-2868 PO; +MULT-23 PO
[2017-02-02 08:48] LABS: BASO # 0.1 x10^3/uL (0.0-0.2); BASO % 1 % (0-3); EOS % 6 % (0-3); HEMATOCRIT 36.2 % (36.0-47.0); HEMOGLOBIN 11.9 g/dL (12.0-15.5); LYMPH # 1.2 x10^3/uL (1.0-4.8); LYMPH % 16 % (24-48); MEAN CORPUSCULAR HEMOGLOBIN 29 pg (25-35); MEAN CORPUSCULAR HGB CONC 33 g/dL (31-37); MEAN CORPUSCULAR VOLUME 90 fL (79-100); MONO % 9 % (0-9); NEUT % 69 % (31-73); PLATELET COUNT 284 x10^3/uL (140-400); RED BLOOD COUNT 4.04 x10^6/uL (3.50-5.40); RED CELL DISTRIBUTION WIDTH 22.2 % (11.5-14.5); WHITE BLOOD COUNT 7.9 x10^3/uL (4.0-11.0)
[2017-02-02 08:55] LABS: PROTHROMBIN TIME PATIENT 12.8 SEC (11.7-14.0)
[2017-02-02 09:06] LABS: CREATININE 10.1 mg/dL (0.6-1.0); GFR 4.4
[2017-02-02 09:25] LABS: ANISOCYTOSIS MOD; PLT ESTIMATE ADEQUATE (ADEQUATE); POLYCHROMASIA SLIGHT
[2017-02-02] MEDS ORDERED: IODIXANOL 320MG/ML 50ML VIAL. ONE (09:49)
[2017-02-02] MEDS ORDERED: IODIXANOL 320 MG/ML 100 ML VIAL. ONE (09:50)
[2017-02-02] MEDS ORDERED: LIDOCAINE 1% / SOD BICARB 8.4% 20 ML VIAL. IJ ONE ×2 (09:50→12:00)
[2017-02-02] MEDS ORDERED: ALTEPLASE 2 MG VIAL INT CAT ONE (10:45)
[2017-02-02] MEDS ORDERED: MIDAZOLAM HCL/PF 2 MG/2 ML VIAL. ONE (11:05)
[2017-02-02] MEDS ORDERED: fentaNYL PF VIAL 100 MCG/2 ML VIAL ONE (11:05)
[2017-02-02] MEDS ORDERED: HEPARIN for IV BOLUS 10,000 UNIT/10 ML VIAL. ONE (11:49)
[2017-02-02] MEDS ORDERED: fentaNYL PF VIAL 100 MCG/2 ML VIAL IV ONE (12:00)
[2017-02-02] MEDS ORDERED: HEPARIN for IV BOLUS 10,000 UNIT/10 ML VIAL. IV ONE (12:00)
[2017-02-02] MEDS ORDERED: MIDAZOLAM HCL/PF 2 MG/2 ML VIAL. IV ONE (12:00)
[2017-02-02] MEDS ORDERED: IODIXANOL 320 MG/ML 100 ML VIAL. IART ONE (12:00)
[2017-02-02] MEDS ORDERED: PROTAMINE 50 MG/5 ML VIAL. IV ONE ×2 (12:30→12:45)
--- NOTE | 2017-02-02 12:53 | PDOC ---
MODERATE SEDATION ASSESSMENT RISKS/ALTERNATIVES Risks/Alternatives Risks and alternatives of this type of sedation and procedure discussed with: RISK/ALTERNATIVES: Patient H & P ON CHART H & P H & P on chart and reviewed for co-morbid conditions and appropriate labs. H&P ON CHART: Yes STATUS PREG STATUS ASSESSED: N/A MEDS/ALLERGIES REVIEWED Meds/Allergies Reviewed Medications and Allergies including time and route of recently administered narcotics and sedatives. MEDS/ALLERGIES REVIEWED: Yes ASA RATING ASA RATING: II AIRWAY ASSESSMENT Airway Assessment Airway patency, oral function limitations, presence of caps, crowns, dentures, partials, and ability to extend neck assessed. AIRWAY ASSESSMENT: Yes MALLAMPATI SCORE MALLAMPATI SCORE: III PRE-SEDATION ASSESSMENT PRE-SEDATION ASSESSMENT: Yes BENITA DYSON MD February 02, 2017 12:53
--- NOTE | 2017-02-02 13:03 | PDOC1 ---
History and Physical Date of Procedure Date of Admission 02/02/17 Procedure Procedure Declot left forearm AVG +/- BALCONY WORKER +/- stent placement. Indication Indication 86 YO female with ESRD and with nonfunctioning left forearm AVG. Past Medical History Past Medical History See Nursing Pre procedure PMH Past Surgical History Past Surgical History See Nursing Pre procedure PSH Current Medications Current Medications Current Medications Iodixanol (Visipaque 320) 50 ml STK-MED ONCE .ROUTE ; Start 02/02/17 at 09:49; Stop 02/02/17 at 09:50; Status DC Lidocaine/Sodium Bicarbonate (Buffered Lidocaine 1%) 20 ml STK-MED ONCE IJ ; Start 02/02/17 at 09:50; Stop 02/02/17 at 09:51; Status DC Heparin Sodium/ Sodium Chloride 500 ml @ As Directed STK-MED ONCE .ROUTE ; Start 02/02/17 at 09:50; Stop 02/02/17 at 09:51; Status DC Iodixanol (Visipaque 320) 100 ml STK-MED ONCE .ROUTE ; Start 02/02/17 at 09:50; Stop 02/02/17 at 09:51; Status DC Alteplase, Recombinant (Cathflo) 4 mg 1X ONCE INT CAT Last administered on 12:21; Start 02/02/17 at 10:45; Stop 02/02/17 at 10:46; Status DC Midazolam HCl (Versed) 2 mg STK-MED ONCE .ROUTE ; Start 02/02/17 at 11:05; Stop 02/02/17 at 11:06; Status DC Fentanyl Citrate (Fentanyl 2ml Vial) 100 mcg STK-MED ONCE .ROUTE ; Start at 11:05; Stop 02/02/17 at 11:06; Status DC Heparin Sodium (Porcine) (Heparin Sodium) 10,000 unit STK-MED ONCE .ROUTE ; Start 02/02/17 at 11:49; Stop 02/02/17 at 11:50; Status DC Heparin Sodium/ Sodium Chloride 1,000 unit 1X ONCE IART Last administered on 12:19; Start 02/02/17 at 12:00; Stop 02/02/17 at 12:01; Status DC Lidocaine/Sodium Bicarbonate (Buffered Lidocaine 1%) 2 ml 1X ONCE IJ Last administered on 02/02/17 12:20; Start 02/02/17 at 12:00; Stop 02/02/17 at 12:01 ; Status DC Midazolam HCl (Versed) 2 mg 1X ONCE IV Last administered on 02/02/17 12:20; Start 02/02/17 at 12:00; Stop 02/02/17 at 12:01; Status DC Fentanyl Citrate (Fentanyl 2ml Vial) 100 mcg 1X ONCE IV Last administered on 12:21; Start 02/02/17 at 12:00; Stop 02/02/17 at 12:01; Status DC Iodixanol (Visipaque 320) 100 ml 1X ONCE IART Last administered on 02/02/17 12:19; Start 02/02/17 at 12:00; Stop 02/02/17 at 12:01; Status DC Heparin Sodium (Porcine) (Heparin Sodium) 4,000 unit 1X ONCE IV Last administered on 02/02/17 12:21; Start 02/02/17 at 12:00; Stop 02/02/17 at 12:01 ; Status DC Protamine Sulfate 50 mg STK-MED ONCE IV ; Start 02/02/17 at 12:30; Stop at 12:31; Status DC Protamine Sulfate 20 mg 1X ONCE IV Last administered on 02/02/17 12:43; Start 02/02/17 at 12:45; Stop 02/02/17 at 12:46; Status DC Active Scripts Active Reported Dialyvite [place] D Tablet (Multivitamin, Min Cmb#25/Fa/D3) 1 Each Tablet 1 Each PO DAILY Hydralazine Hcl 25 Mg Tablet 1 Tab PO TID Clonidine Hcl 0.2 Mg Tablet 0.2 Mg TRANSTRACH WEEKLY Renvela (Sevelamer Carbonate) 800 Mg Tablet 2 Tab PO TIDWMEALHC Sensipar (Cinacalcet Hcl) 30 Mg Tablet 1 Tab PO DAILYWSUP Calcium Acetate 667 Mg Tablet 1,334 Mg PO TIDWMEALS Lovastatin 10 Mg Tablet 10 Mg PO HS Losartan Potassium 100 Mg Tablet 100 Mg PO DAILY Amlodipine Besylate 10 Mg Tablet 10 Mg PO PRN DAILY PRN Ferrous Sulfate 325 Mg Tablet 1 Tab PO DAILY Lasix (Furosemide) 40 Mg Tablet 1 Tab PO DAILY Aspir 81 (Aspirin) 81 Mg Tablet. 1 Tab PO DAILY Allergies Allergies: Coded Allergies: No Known Drug Allergies (Unverified , 01/03/16) Physical Exam Vital Signs Vital Signs Date Time Temp Pulse Resp B/P (MAP) Pulse Ox O2 Delivery O2 Flow Rate FiO2 02/02/17 12:40 56 21 98 Nasal Cannula 2.0 02/02/17 09:48 97.6 203/87 (125) 97.6 Lungs: Clear to auscultation Neuro: Normal gait Psych/Mental Status: Mental status NL Other Strong pulse within left forearm AVG from AA thru loop. Nonpalpable pulse within venous limb. U/S revealed direct fistulous communication between proximal venous limb and an adjacent left forearm vein. Diagnostic Data/Imaging Images [facility] IR images from AVG declot with BALCONY WORKER from 01/19/17 reviewed. Assessment Assessment ESRD with nonfunctioning AVG. AVG patent from AA thru a direct fistulous communication between proximal venous limb and an adjacent forearm vein. No flow with intraluminal thrombus within mid-distal venous limb above the graft -vein fistula. Problems: Plan Plan t-PA declot venous limb of AVG. Repeat VA BALCONY WORKER, if indicated. Coil embolization of or covered stent exclusion of the graft-vein fistula. BENITA DYSON MD February 02, 2017 13:03
--- NOTE | 2017-02-02 13:05 | PDOC ---
Exam Plastics And Composites Inspector Plastics And Composites Inspector Nickie Watch Commander Watch Commander Juan Raya Pre-Procedure Diagnosis Pre-Procedure Diagnosis ESRD with nonfunctioning left forearm AVG. 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 Partially occluded mid-distal venous limb. Possible recurrent VA stenosis. No peripheral IV access. Post-Procedure Diagnosis Post-Procedure Diagnosis Same. Mid-distal venous limb partial thrombosis. Moderate recurrent VA stenosis, s/p DCB ULTRASONIC SEAMING MACHINE OPERATOR 01/19/17. 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 Procedure Performed Procedure Performed Pre Procedure Sono guided rt IJ CV access insertion. t-PA declot venous limb AVG. ULTRASONIC SEAMING MACHINE OPERATOR recurrent stenosis at VA. Exclusion of proximal venous limb-vein fistula with Viabahn covered stent. Type of Anesthesia Type of Anesthesia Local + Mod sedation Estimated Blood Loss EBL: 25 cc Condition of Patient Condition of Patient Stable. No apparent complication. Disposition Disposition Discharge from CVOBS post recovery, if no bleeding or other issues. F/u with Renal. OK to use left forearm AVG for HD----avoid puncture of proximal venous limb Viabahn stent. Full report to follow. BENITA DYSON MD February 02, 2017 13:05
--- NOTE | 2017-02-03 07:53 | RAD ---
Ultrasound-guided right IJ central venous access insertion Alteplase declot AV graft AV shuntogram ENERGY CROP FARMER venous anastomosis Proximal venous limb Viabahn covered stent placement Indication: 86-year-old female with end stage renal disease. Nonfunctioning left forearm AV graft, with no palpable pulse within venous limb of the AV graft. No peripheral IV access. Fluoroscopy time: 10.5 minutes Kerma-area product: 8 Gycm2 Moderate sedation: 76 minutes moderate sedation was provided utilizing a total of 1.5 mg Versed and 75 mcg fentanyl, IV. The patient was appropriately monitored by a qualified independent observer throughout the time of moderate sedation. Contrast material: 90 cc Visipaque 320 Sterility: All elements of maximal sterile barrier technique, including the use of a cap, mask, sterile gown, sterile gloves, large sterile sheet, appropriate hand hygiene, and 2% chlorhexidine for cutaneous antisepsis (or acceptable alternative antiseptic per current guidelines) were utilized. Anticoagulation: 4000 units heparin. Procedure: Informed consent was obtained from the patient. She was placed supine on the angiography table. Conscious sedation was provided with IV Versed and fentanyl. Right neck and left forearm were prepped and draped in the usual sterile fashion, utilizing all elements of maximal sterile barrier technique, as described above. Ultrasound guided Central venous access insertion: Since this patient has essentially no peripheral IV access, the decision was made to proceed with ultrasound-guided insertion of a central venous sheath, to provide venous access for moderate sedation and anticoagulation. Preliminary ultrasound examination of right neck revealed wide patency of right internal jugular vein, which was documented with a single hard copy ultrasound image. Right neck was then prepped and draped in the usual sterile fashion, utilizing all elements of maximal sterile barrier technique, as described above. Using aseptic technique, local anesthesia, and direct ultrasound guidance, a micropuncture needle was successfully introduced into right internal jugular vein. The micropuncture needle was exchanged over a 0.018 inch guidewire for a 4 Afghan right IJ central venous sheath. The 4 Afghan sheath flushed and aspirated normally, and was secured at the right neck exit site utilizing sterile dressing. Alteplase declot AV graft: Preliminary ultrasound examination over the patient's left forearm confirmed absence of color flow within venous limb upper AV graft, consistent with graft thrombosis. A site suitable for ultrasound-guided insertion of a patent distal arterial limb access sheath was selected. This site was documented with a single hard copy ultrasound image. Using aseptic technique, local anesthesia, and direct ultrasound guidance, a 21-gauge micropuncture needle was successfully introduced into distal arterial limb of the AV graft, with its tip directed peripherally. The micropuncture needle was exchanged over a microguidewire for a micropuncture sheath. The micropuncture sheath was then exchanged over a guidewire for a short 7 Afghan sheath. A small amount of Visipaque 320 was slowly injected through the 7 Afghan sheath and DSA images were obtained over forearm. Those images revealed patent loop of the AV graft, followed by direct contrast opacification of a fistulous communication between the AV graft and an adjacent left forearm vein. Venous limb above this graft-vein communication was poorly opacified and partially thrombosed. A 5 Afghan Speedlyser infusion catheter was advanced through the distal arterial limb sheath and was positioned with its infusion length across the partially thrombosed venous limb. A total of 4 mg t-PA was then forcibly laced through the infusion catheter, and was allowed to dwell for 5 minutes. AV shuntogram: Following venous limb alteplase thrombolysis, the Speedlyser infusion catheter was exchanged over a Glidewire for a 5 Afghan Berenstein catheter which was advanced through the arterial limb sheath, was directed across the venous anastomosis, and was initially positioned with its tip within left axillary vein. Visipaque 320 was injected and "pull-back" AV shuntogram DSA images were obtained. Findings: Left axillary vein, subclavian vein, innominate vein, and superior vena cava are widely patent, without intraluminal thrombus and without significant stricture. The left basilic or brachial outflow vein is also widely patent, above venous anastomosis, where there is at least moderate recurrent stenosis, status post drug coated balloon angioplasty done 01/19/2017. There was only minimal residual intraluminal thrombus within the venous limb of the AV graft. Fistula between proximal venous limb and adjacent left forearm vein was again demonstrated. ENERGY CROP FARMER venous anastomosis: The Berenstein catheter, utilized for the AV shuntogram, was exchanged over the Glidewire for a 7 mm x 40 mm conquest ENERGY CROP FARMER balloon, which was utilized to perform prolonged (5 minutes), high-pressure (20 rolanda) balloon dilatation of the recurrent venous anastomotic stricture. This ENERGY CROP FARMER balloon was then utilized to perform balloon maceration of the minimal residual venous limb intraluminal thrombus. Post angioplasty DSA images revealed improved caliber at venous anastomosis, with approximately 30% residual stenosis. Exclusion of fistulous communication between proximal venous limb AV graft and adjacent left forearm vein with Viabahn covered stent: Following venous anastomosis ENERGY CROP FARMER, attention was turned to the abnormal communication between the AV graft and adjacent left forearm vein. An 8 mm x 50 mm [place] Viatorr covered stent was advanced through the 7 Afghan distal arterial limb sheath over a grand slam microguidewire. This stent was carefully deployed across the graft-vein communication, utilizing control contrast injections and roadmapping technique. Post dilatation of the stent was then performed utilizing an 8 mm x 40 mm CordFOCUS Trainr extreme ENERGY CROP FARMER balloon. Completion DSA images were then obtained, which revealed complete exclusion of the graft-vein fistula, with brisk antegrade flow through the AV graft. Patient tolerated the procedure well without apparent complication. The 7 Afghan distal arterial limb sheath was removed and hemostasis was achieved utilizing 2-0 silk suture. Impression: 1. AV shuntogram significant for abnormal fistulous communication between proximal venous limb of graft and adjacent left forearm vein, subtotal thrombosis within mid-distal venous limb, and recurrent, moderate stenosis at venous anastomosis. 2. Successful, uneventful venous limb alteplase declot, venous anastomosis balloon angioplasty, and covered stent exclusion of the graft-venous fistula.
== END 2017-02-02 14:45 | disposition home or self-care (01) ==
LOC: INTRAD 08:05
PROVIDERS: ATTEND Internal Medicine Nephrology
DX: T82.590A Other mechanical complication of surgically created arteriovenous fistula, initial encounter (principal); Y83.2 Surgical operation with anastomosis, bypass or graft as the cause of abnormal reaction of the patient, or of later complication, without mention of misadventure at the time of the procedure; Y92.9 Unspecified place or not applicable; E11.22 Type 2 diabetes mellitus with diabetic chronic kidney disease; I12.0 Hypertensive chronic kidney disease with stage 5 chronic kidney disease or end stage renal disease; N18.6 End stage renal disease; M19.90 Unspecified osteoarthritis, unspecified site; D64.9 Anemia, unspecified; E66.9 Obesity, unspecified; Z98.41 Cataract extraction status, right eye; Z98.42 Cataract extraction status, left eye; Z90.710 Acquired absence of both cervix and uterus
CPT/HCPCS: 36415; 36556; 36906; 76937; 77001; 80048; 85007; 85027; 85610; C1757; C1758; C1769; C1892; C1894; J2250; J2997; J3010

== ENCOUNTER 2017-06-16 10:57 | Outpatient (CLI) | payer OTHER ==
[~2017-06-16] VITALS: Ht 154.9 cm; Wt 81.6 kg
[~2017-06-16 10:57] MED LIST changes: -CINA30TA PO; +CINA30TA2 PO; -HYDR-2666 PO; +HYDR-2758 PO
[2017-06-16] MEDS ORDERED: IODIXANOL 320 MG/ML 100 ML VIAL. ONE (11:20)
[2017-06-16] MEDS ORDERED: LIDOCAINE 1% / SOD BICARB 8.4% 20 ML VIAL. IJ ONE ×2 (11:20→12:30)
[2017-06-16 11:39] VITALS: BP 141/67
[2017-06-16 12:06] LABS: BASO # 0.1 x10^3/uL (0.0-0.2); BASO % 1 % (0-3); EOS % 1 % (0-3); HEMATOCRIT 37.3 % (36.0-47.0); HEMOGLOBIN 12.2 g/dL (12.0-15.5); LYMPH # 1.4 x10^3/uL (1.0-4.8); LYMPH % 17 % (24-48); MEAN CORPUSCULAR HEMOGLOBIN 30 pg (25-35); MEAN CORPUSCULAR HGB CONC 33 g/dL (31-37); MEAN CORPUSCULAR VOLUME 92 fL (79-100); MONO % 12 % (0-9); NEUT % 69 % (31-73); PLATELET COUNT 258 x10^3/uL (140-400); RED BLOOD COUNT 4.05 x10^6/uL (3.50-5.40); RED CELL DISTRIBUTION WIDTH 16.2 % (11.5-14.5); WHITE BLOOD COUNT 8.3 x10^3/uL (4.0-11.0)
[2017-06-16] MEDS ORDERED: fentaNYL PF VIAL 100 MCG/2 ML VIAL ONE (12:11)
[2017-06-16] MEDS ORDERED: HEPARIN for IV BOLUS 10,000 UNIT/10 ML VIAL. ONE (12:12)
[2017-06-16] MEDS ORDERED: MIDAZOLAM HCL/PF 2 MG/2 ML VIAL. ONE ×2 (12:12→12:13)
[2017-06-16] MEDS ORDERED: ALTEPLASE 2 MG VIAL INT CAT ONE (12:15)
[2017-06-16] MEDS ORDERED: IODIXANOL 320MG/ML 50ML VIAL. ONE (12:19)
[2017-06-16 12:23] LABS: PROTHROMBIN TIME PATIENT 12.9 SEC (11.7-14.0)
[2017-06-16] MEDS ORDERED: fentaNYL PF VIAL 100 MCG/2 ML VIAL IV ONE (12:30)
[2017-06-16] MEDS ORDERED: HEPARIN for IV BOLUS 10,000 UNIT/10 ML VIAL. IV ONE (12:30)
[2017-06-16] MEDS ORDERED: MIDAZOLAM HCL/PF 2 MG/2 ML VIAL. IV ONE (12:30)
[2017-06-16 13:56] VITALS: BP 163/73
[2017-06-16 14:30] VITALS: BP 167/71
[2017-06-16 14:45] VITALS: BP 165/80
[2017-06-16 15:00] VITALS: BP 179/112
--- NOTE | 2017-06-16 15:26 | RAD ---
Left upper extremity fistulogram, thrombolysis, and balloon angioplasty of outflow vein stenosis. Indication: Poorly functioning left upper extremity fistula at dialysis yesterday. Upon presentation for evaluation today's fistula was found to be completely thrombosed. Discussion: The risks and benefits of the procedure were discussed the patient. Informed consent was obtained. A timeout procedure was performed. The left upper extremity was prepped and draped using maximum sterile barrier technique. All elements of maximal sterile barrier technique including the use of a cap, mask, sterile gown, sterile gloves, large sterile sheet, appropriate hand hygiene, and 2% chlorhexidine for cutaneous antisepsis (or acceptable alternative antiseptic per current guidelines) were followed for this procedure. 1% lidocaine was administered for local anesthesia. Using micropuncture technique the left upper extremity forearm graft was accessed directed towards the venous outflow. A guidewire was advanced centrally. The graft was also accessed directed towards the arterial anastomosis in an identical fashion. The patient was heparinized. 2 infusion catheters were placed spanning the graft. 6 mg of TPA was administered focally into the thrombus. Central venograms were obtained demonstrating no significant stenosis in the upper arm or chest. Following a 10 minute intubation time balloon maceration of the thrombosed graft was performed directed towards the venous outflow. A moderate recurrent stenosis is noted at the venous anastomosis of the graft, and in the proximal venous outflow. This was dilated with 7 mm balloon. Balloon maceration of clot was continued through both sheaths to restore graft patency. A 5 mm balloon was advanced through the arterial anastomosis and partially inflated and withdrawn through the anastomosis. An angled glide catheter was advanced into the brachial artery and an angiogram performed. The graft was now patent with mild areas of residual narrowing in the venous limb, just distal to the previously placed stent. A outflow stenosis persists with mild residual clot. Angioplasty was repeated with subsequent significant improvement in morphology and flow through the graft. A small amount of bleeding was then noted at the at a prior puncture site, which appears to be the one used yesterday for dialysis. Manual pressure was held for several minutes. Repeat fistulogram demonstrated no active extravasation. Purse string sutures were placed the sheath sites as they were removed. Hemostasis pattern was placed at the prior dialysis access site. Sterile dressings were applied. No immediate complications were identified. FLUORO TIME: 15.7 MIN DOSE: 36 Gycm2 The exam was performed under conscious sedation including continuous cardiopulmonary monitoring via dedicated sedation nurse. 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 Recurrent proximal venous outflow stenosis successfully treated with balloon angioplasty
== END 2017-06-16 16:50 | disposition home or self-care (01) ==
LOC: INTRAD 10:57
PROVIDERS: ATTEND Internal Medicine Nephrology
DX: T82.590A Other mechanical complication of surgically created arteriovenous fistula, initial encounter (principal); Y83.8 Other surgical procedures as the cause of abnormal reaction of the patient, or of later complication, without mention of misadventure at the time of the procedure; Y92.89 Other specified places as the place of occurrence of the external cause; E78.00 Pure hypercholesterolemia, unspecified; E66.9 Obesity, unspecified; Z68.34 Body mass index [BMI] 34.0-34.9, adult; I12.9 Hypertensive chronic kidney disease with stage 1 through stage 4 chronic kidney disease, or unspecified chronic kidney disease; E11.22 Type 2 diabetes mellitus with diabetic chronic kidney disease; N18.9 Chronic kidney disease, unspecified; D64.9 Anemia, unspecified; Z98.41 Cataract extraction status, right eye; Z79.01 Long term (current) use of anticoagulants; Z98.42 Cataract extraction status, left eye; Z86.39 Personal history of other endocrine, nutritional and metabolic disease; Z87.891 Personal history of nicotine dependence; Z90.710 Acquired absence of both cervix and uterus
CPT/HCPCS: 36415; 36901; 36902; 85025; 85610; 85730; C1758; C1769; C1892; C1894; J1644; J2250; J2997; J3010; 99152; 99153

== ENCOUNTER 2017-07-14 09:20 | Emergency (ER) | payer OTHER ==
[~2017-07-14] VITALS: Ht 156.2 cm; Wt 88.9 kg
[2017-07-14] MEDS ORDERED: IODIXANOL 320 MG/ML 100 ML VIAL. ONE (10:41)
[2017-07-14] MEDS ORDERED: LIDOCAINE 1% / SOD BICARB 8.4% 20 ML VIAL. IJ ONE ×2 (10:41→11:30)
[2017-07-14] MEDS ORDERED: HEPARIN for IV BOLUS 10,000 UNIT/10 ML VIAL. ONE (11:24)
[2017-07-14] MEDS ORDERED: IODIXANOL 320 MG/ML 100 ML VIAL. IART ONE (11:30)
[2017-07-14] MEDS ORDERED: ALTEPLASE 2 MG VIAL INT CAT ONE (11:30)
--- NOTE | 2017-07-14 11:38 | PHYS DOC ---
Past Medical History Past Medical History: Anemia, Diabetes-Type II, High Cholesterol, Hypertension , Renal Failure Additional Past Medical Histor: PVD,OBESITY Past Surgical History: Other Additional Past Surgical Histo: NON CANCER "OVARIAN MASS" , dialysis shunt placement Alcohol Use: None Drug Use: None Adult General Chief Complaint Chief Complaint: DIALYSIS PROBLEM HPI HPI Patient is a 87 year old female who presents for blocked AV fistula, noted when she went to dialysis yesterday. She came to ED for evaluation, denies any symptoms. Yesterday for the only dialysis she'd missed. Review of Systems Review of Systems Constitutional: Denies fever or chills [] Eyes: Denies change in visual acuity, redness, or eye pain [] HENT: Denies nasal congestion or sore throat [] Respiratory: Denies cough or shortness of breath [] Cardiovascular: denies chest pain GI: Denies abdominal pain, nausea, vomiting, bloody stools or diarrhea [] : Denies dysuria or hematuria [] Musculoskeletal: Denies back pain or joint pain [] Integument: Denies rash or skin lesions [] Neurologic: Denies headache, focal weakness or sensory changes [] Current Medications Current Medications Current Medications Medications (Trade) Dose Ordered Sig/Virgil Start Time Stop Time Status Last Admin Dose Admin Alteplase, Recombinant (Cathflo) 6 mg 1X ONCE 07/14/17 11:30 07/14/17 11:31 Heparin Sodium (Porcine) (Heparin Sodium) 10,000 unit STK-MED ONCE 07/14/17 11:24 07/14/17 11:25 DC Heparin Sodium/ Sodium Chloride 1,000 unit 1X ONCE 07/14/17 11:30 07/14/17 11:31 Iodixanol (Visipaque 320) 100 ml 1X ONCE 07/14/17 11:30 07/14/17 11:31 Lidocaine/Sodium Bicarbonate (Buffered Lidocaine 1%) 20 ml 1X ONCE 07/14/17 11:30 07/14/17 11:31 Allergies Allergies Allergies Coded Allergies Type Severity Reaction Last Updated Verified No Known Drug Allergies 07/14/17 No Physical Exam Physical Exam Constitutional: Well developed, well nourished, no acute distress, non-toxic appearance. [] HENT: Normocephalic, atraumatic, bilateral external ears normal, oropharynx moist, no oral exudates, nose normal. [] Eyes: PERRLA, EOMI, conjunctiva normal, no discharge. [] Neck: Normal range of motion, no tenderness, supple, no stridor. [] Cardiovascular:Heart rate regular rhythm, no murmur [] Lungs & Thorax: Bilateral breath sounds clear to auscultation [] Abdomen: Bowel sounds normal, soft, no tenderness, no masses, no pulsatile masses. [] Skin: Warm, dry, no erythema, no rash. [] Back: No tenderness, no CVA tenderness. [] Extremities: No tenderness, no cyanosis, no clubbing, ROM intact, no edema.no thrill in LUE fistula Neurologic: Alert and oriented X 3, normal motor function, normal sensory function, no focal deficits noted. [] Psychologic: Affect normal, judgement normal, mood normal. [] Current Patient Data Vital Signs Vital Signs Date Time Temp Pulse Resp B/P (MAP) Pulse Ox O2 Delivery O2 Flow Rate FiO2 07/14/17 09:39 97.6 63 16 183/81 (115) 96 Room Air 97.6 EKG EKG [] Radiology/Procedures Radiology/Procedures [] Course & Med Decision Making Course & Med Decision Making Pertinent Labs and Imaging studies reviewed. (See chart for details) contacted IR earlier regarding getting patient into IR for intervention, their schedule was booked. Then contacted Dr. Downey, who checked with outside facilities that couldn't get the pt in. Therefore we would need to admit the patient. Then IR called and stated the pt was scheduled as an outpt at 11:30. Then we contacted dialysis and pt is scheduled for dialysis tomorrow morning at 10:30. We made several attempts but unable to get blood in the ED. As pt is asx, had dialysis scheduled tomorrow, return precautions given and pt dc'd to IR for intervention. Dragon Disclaimer Dragon Disclaimer This electronic medical record was generated, in whole or in part, using a voice recognition dictation system. Departure Departure Impression: Primary Impression: AV graft malfunction Disposition: 05 TRANSFER OTHER Condition: STABLE Referrals: URMILA HAGER MD (PCP) SHUN STROUD MD Jul 14, 2017 11:38
[2017-07-14] MEDS ORDERED: fentaNYL PF VIAL 100 MCG/2 ML VIAL ONE (11:51)
[2017-07-14] MEDS ORDERED: fentaNYL PF VIAL 100 MCG/2 ML VIAL IV ONE (12:00)
[2017-07-14] MEDS ORDERED: HEPARIN for IV BOLUS 10,000 UNIT/10 ML VIAL. IV ONE (12:15)
[2017-07-14 12:45] VITALS: BP 186/88
[2017-07-14 13:07] VITALS: BP 180/86
[2017-07-14 13:22] VITALS: BP 187/69
[2017-07-14 13:30] VITALS: BP 181/76
[2017-07-14 13:50] VITALS: BP 191/84
[2017-07-14 14:15] VITALS: BP 186/71
--- NOTE | 2017-08-04 10:16 | RAD ---
July 14, 2017 1. Left upper extremity fistulogram 2. TPA thrombolysis of a thrombosed left upper extremity AV graft 3. Angioplasty of a proximal outflow vein stenosis 4. Placement of a covered stent graft across the venous anastomosis and outflow vein stenosis secondary to multiple irregular collateral veins and persistent narrowing at this level following angioplasty. Discussion: The patient is a 87-year-old female with thrombosis of a left upper extremity AV graft. The patient has previously been seen in head placement of a stent graft for treatment of a fistula arising from the midportion of the, presumably due to prior puncture site. The risks and benefits of the procedure were discussed the patient. Informed consent was obtained. A timeout procedure was performed. The left arm was prepped and draped using maximum sterile barrier technique. The graft was accessed in both directions using micropuncture technique. Ultrasound guidance was also used confirming thrombosis of the graft as well as presence of the needle tip within the graft lumen during access. Reference ultrasound images restored in the medical record. Following this 2 infusion catheters were advanced through each access site, spanning the graft. 8 mg of TPA was administered through the catheters and following a 10 to 20 minute intubation time the catheters were exchanged for sheaths. Significant reduction in graft thrombus was noted on follow-up fistulogram.. Balloon maceration and angioplasty was performed throughout the graft with a 7 mm x 8 cm balloon. The arterial plug was pulled place partially inflated 5 mm balloon. Follow-up venograms demonstrated persistent narrowing at the venous anastomosis with multiple, irregular venous collaterals arising from the area of the venous anastomosis. This is felt to likely contribute to recurrent stenosis at this level. This was treated with placement of a 7 mm x 5 cm covered stent. There is subsequently significantly improved morphology and flow through the graft. Central venograms were obtained demonstrating no flow limiting stenosis. And compression sutures were placed in the sheath was removed without complication. Sterile dressing was applied. The procedures performed under conscious sedation including continuous cardiopulmonary monitoring via dedicated sedation nurse. Sedation time was approximately 1 hour. Fluoroscopy time 14.9 minutes Dose area product 40 Gycm2 Impression: Successful thrombolysis of the thrombosed left upper extremity AV graft. Venous anastomotic stenosis was treated with balloon angioplasty with a suboptimal result. Following placement of a covered stent, morphology and flow through the graft is significantly improved.
== END 2017-07-14 10:45 | disposition home or self-care (01) ==
LOC: ER 09:20
DX: T82.310A Breakdown (mechanical) of aortic (bifurcation) graft (replacement), initial encounter (principal); E78.00 Pure hypercholesterolemia, unspecified; I12.9 Hypertensive chronic kidney disease with stage 1 through stage 4 chronic kidney disease, or unspecified chronic kidney disease; E11.22 Type 2 diabetes mellitus with diabetic chronic kidney disease; N18.9 Chronic kidney disease, unspecified; I73.9 Peripheral vascular disease, unspecified; Z99.2 Dependence on renal dialysis; Y84.1 Kidney dialysis as the cause of abnormal reaction of the patient, or of later complication, without mention of misadventure at the time of the procedure; Y92.89 Other specified places as the place of occurrence of the external cause
CPT/HCPCS: 36901; 36906; 37195; 76937; 96374; 96375; 99285; C1725; C1757; C1758; C1769; C1894; J1644; J2997; J3010; 36905

== ENCOUNTER 2017-11-02 13:18 | Inpatient (IN) | payer OTHER ==
[2017-11-02] MEDS: VANCOMYCIN PER PHARMACY MC ×2 (14:45→17:44)
[2017-11-02 15:14] LABS: BILIRUBIN,URINE NEGATIVE (NEG); COLOR,URINE YELLOW; GLUCOSE,URINE NEGATIVE (NEG); NITRITE,URINE NEGATIVE (NEG); PH,URINE 8.5; PROTEIN,URINE 100 mg/dL (NEG-TRACE); UROBILINOGEN,URINE 0.2 mg/dL (0.2 mg/dL)
[2017-11-02 15:20] LABS: CLARITY,URINE CLEAR
[2017-11-02] MEDS: IV NORMAL SALINE 1000ML BAG 1,000 ML IV (15:23)
[2017-11-02] MEDS: VANCOMYCIN 2 GM in IV DEXTROSE 5% 500 ML IV (15:23)
[2017-11-02 15:24] LABS: BACTERIA,URINE MODERATE /HPF (0-FEW); RBC,URINE 0 /HPF (0-2); SQUAMOUS EPITHELIAL CELL,UR MANY /LPF
[2017-11-02] MEDS ORDERED: ACETAMINOPHEN 325 MG TABLET. PO ×2 (16:30→17:30)
[2017-11-02] MEDS ORDERED: fentaNYL PF VIAL 100 MCG/2 ML VIAL IV (16:30)
[2017-11-02] MEDS ORDERED: ONDANSETRON PF 4 MG/2 ML VIAL. IV (16:30)
[2017-11-02 16:43] LABS: ANION GAP 12 (6-14); BLOOD UREA NITROGEN 27 mg/dL (7-20); BUN/CREATININE RATIO 5 (6-20); CALCIUM 8.1 mg/dL (8.5-10.1); CARBON DIOXIDE 27 mmol/L (21-32); CHLORIDE 98 mmol/L (98-107); CREATININE 5.1 mg/dL (0.6-1.0); GFR 9.7; GLUCOSE 132 mg/dL (70-99); POTASSIUM 5.1 mmol/L (3.5-5.1); SODIUM 137 mmol/L (136-145)
[2017-11-02 16:49] LABS: ALBUMIN 3.2 g/dL (3.4-5.0); ALBUMIN/GLOBULIN RATIO 0.7 (1.0-1.7); ALK PHOS 111 U/L (46-116); ALT (SGPT) 9 U/L (14-59); AST (SGOT) 10 U/L (15-37); TOTAL BILIRUBIN 0.3 mg/dL (0.2-1.0)
[2017-11-02 17:17] LABS: ADD MAN DIFF? NO
[2017-11-02 17:23] LABS: BASO % 1 % (0-3); EOS # 0.2 x10^3/uL (0.0-0.7); EOS % 3 % (0-3); HEMATOCRIT 33.7 % (36.0-47.0); HEMOGLOBIN 10.9 g/dL (12.0-15.5); LYMPH % 15 % (24-48); MEAN CORPUSCULAR HEMOGLOBIN 29 pg (25-35); MEAN CORPUSCULAR HGB CONC 32 g/dL (31-37); MEAN CORPUSCULAR VOLUME 90 fL (79-100); MONO # 0.8 x10^3/uL (0.0-1.1); MONO % 13 % (0-9); NEUT # 4.3 x10^3uL (1.8-7.7); NEUT % 68 % (31-73); PLATELET COUNT 323 x10^3/uL (140-400); RED BLOOD COUNT 3.74 x10^6/uL (3.50-5.40); RED CELL DISTRIBUTION WIDTH 16.3 % (11.5-14.5); WHITE BLOOD COUNT 6.3 x10^3/uL (4.0-11.0)
[2017-11-02] MEDS ORDERED: PIP/TAZO PER PHARMACY MC (17:30)
[2017-11-02] MEDS ORDERED: DOCUSATE SODIUM 100 MG CAPSULE. PO (17:30)
[2017-11-02] MEDS ORDERED: DEXTROSE 50% 25 GM / 50ML DISP.SYRIN. IV (17:30)
[2017-11-02 17:55] LABS: POC GLUCOSE 89 mg/dL (70-99)
[2017-11-02] MEDS: CINACALCET HCL 30 MG TABLET PO (19:03)
[2017-11-02] MEDS: CALCIUM ACETATE 667 MG CAPSULE PO (19:03)
[2017-11-02 20:41] LABS: POC GLUCOSE 159 mg/dL (70-99)
[2017-11-02] MEDS: SEVELAMER CARBONATE 800 MG TABLET. PO (21:01)
[2017-11-02] MEDS: hydrALAZINE 25 MG TABLET PO (21:01)
[2017-11-02] MEDS: ATORVASTATIN CALCIUM 10 MG TABLET. PO (21:01)
[2017-11-02] MEDS: HEPARIN PF for SUB-Q USE 5,000 UNIT/0.5 ML VIAL. SQ (21:10)
[2017-11-02] MEDS: PIPERACILLIN/TAZOBACTAM 2.25 GM in IV NORMAL SALINE 50ML 50 ML IV (22:00)
[2017-11-03 05:30] LABS: ADD MAN DIFF? NO
[2017-11-03 05:38] LABS: BASO # 0.1 x10^3/uL (0.0-0.2); BASO % 1 % (0-3); EOS # 0.3 x10^3/uL (0.0-0.7); EOS % 5 % (0-3); HEMATOCRIT 34.1 % (36.0-47.0); HEMOGLOBIN 10.7 g/dL (12.0-15.5); LYMPH # 1.1 x10^3/uL (1.0-4.8); LYMPH % 18 % (24-48); MEAN CORPUSCULAR HEMOGLOBIN 28 pg (25-35); MEAN CORPUSCULAR HGB CONC 32 g/dL (31-37); MEAN CORPUSCULAR VOLUME 90 fL (79-100); MONO # 0.9 x10^3/uL (0.0-1.1); MONO % 13 % (0-9); NEUT # 4.1 x10^3uL (1.8-7.7); NEUT % 63 % (31-73); PLATELET COUNT 317 x10^3/uL (140-400); RED BLOOD COUNT 3.78 x10^6/uL (3.50-5.40); RED CELL DISTRIBUTION WIDTH 16.1 % (11.5-14.5); WHITE BLOOD COUNT 6.5 x10^3/uL (4.0-11.0)
[2017-11-03 06:04] LABS: ANION GAP 12 (6-14); BLOOD UREA NITROGEN 36 mg/dL (7-20); CALCIUM 8.8 mg/dL (8.5-10.1); CARBON DIOXIDE 25 mmol/L (21-32); CHLORIDE 101 mmol/L (98-107); CREATININE 6.2 mg/dL (0.6-1.0); GFR 7.8; GLUCOSE 94 mg/dL (70-99); SODIUM 138 mmol/L (136-145)
[2017-11-03 06:06] LABS: POTASSIUM 5.9 mmol/L (3.5-5.1)
[2017-11-03] MEDS: PIPERACILLIN/TAZOBACTAM 2.25 GM in IV NORMAL SALINE 50ML 50 ML IV ×3 (06:40→22:05)
[2017-11-03] MEDS: HEPARIN PF for SUB-Q USE 5,000 UNIT/0.5 ML VIAL. SQ ×3 (06:45→21:54)
[2017-11-03] MEDS: INSULIN ASPART 300 UNITS/3 ML INSULN.PEN SQ ×3 (08:00→17:00)
[2017-11-03] MEDS: SEVELAMER CARBONATE 800 MG TABLET. PO ×4 (08:41→21:35)
[2017-11-03] MEDS: MULTIVITAMIN with MINERAL TABLET. PO (08:41)
[2017-11-03] MEDS: FUROSEMIDE 40 MG TABLET. PO (08:41)
[2017-11-03] MEDS: CALCIUM ACETATE 667 MG CAPSULE PO ×3 (08:41→17:13)
[2017-11-03] MEDS: FERROUS SULFATE 325 MG TABLET. PO (08:41)
[2017-11-03] MEDS: LOSARTAN POTASSIUM 50 MG TABLET. PO (08:42)
[2017-11-03] MEDS: ASPIRIN ENTERIC COATED 81 MG TABLET.DR. PO (08:43)
[2017-11-03] MEDS: hydrALAZINE 25 MG TABLET PO ×3 (08:43→21:38)
[2017-11-03] MEDS: amLODIPine BESYLATE 10 MG TABLET PO (08:44)
[2017-11-03 09:03] LABS: POC GLUCOSE 101 mg/dL (70-99)
[2017-11-03 12:44] LABS: POC GLUCOSE 74 mg/dL (70-99)
[2017-11-03] MEDS: hydrALAZINE 20 MG/ML VIAL. IVP ×2 (12:50→20:12)
[2017-11-03] MEDS: SODIUM POLYSTYRENE SULFONATE 15 GM/60 ML ORAL.SUSP. PO (12:51)
[2017-11-03] MEDS: traMADol 50 MG TABLET PO (13:06)
[2017-11-03] MEDS: VANCOMYCIN PER PHARMACY MC (13:15)
[2017-11-03] MEDS: CINACALCET HCL 30 MG TABLET PO (17:13)
[2017-11-03 18:19] LABS: POC GLUCOSE 97 mg/dL (70-99)
[2017-11-03] MEDS: CALCIUM CARBONATE 500 MG TAB.CHEW PO (21:33)
[2017-11-03] MEDS: ATORVASTATIN CALCIUM 10 MG TABLET. PO (21:35)
[2017-11-03] MEDS: LACTOBACILLUS RHAMNOSUS GG 1 CAPSULE. PO (21:36)
[2017-11-03] MEDS: DARBEPOETIN ALFA 60 MCG/0.3 ML DISP.SYRIN. SQ (21:37)
[2017-11-03] MEDS: ONDANSETRON PF 4 MG/2 ML VIAL. IV (23:38)
[2017-11-03 23:41] LABS: POC GLUCOSE 135 mg/dL (70-99)
[2017-11-04] MEDS: MORPHINE SULFATE 2 MG/ML DISP.SYRIN. IV (00:28)
[2017-11-04] MEDS ORDERED: MORPHINE SULFATE 2 MG/ML DISP.SYRIN. IV (00:30)
[2017-11-04] MEDS: PIPERACILLIN/TAZOBACTAM 2.25 GM in IV NORMAL SALINE 50ML 50 ML IV (06:02)
[2017-11-04] MEDS: HEPARIN PF for SUB-Q USE 5,000 UNIT/0.5 ML VIAL. SQ (06:07)
[2017-11-04 06:47] LABS: ADD MAN DIFF? NO
[2017-11-04] MEDS: VANCOMYCIN RANDOM LEVEL. MC (07:00)
[2017-11-04 07:04] LABS: BASO # 0.1 x10^3/uL (0.0-0.2); BASO % 1 % (0-3); EOS % 0 % (0-3); HEMATOCRIT 35.3 % (36.0-47.0); HEMOGLOBIN 11.4 g/dL (12.0-15.5); LYMPH # 0.9 x10^3/uL (1.0-4.8); LYMPH % 9 % (24-48); MEAN CORPUSCULAR HEMOGLOBIN 29 pg (25-35); MEAN CORPUSCULAR HGB CONC 32 g/dL (31-37); MEAN CORPUSCULAR VOLUME 91 fL (79-100); MONO # 0.8 x10^3/uL (0.0-1.1); MONO % 9 % (0-9); NEUT # 7.4 x10^3uL (1.8-7.7); NEUT % 81 % (31-73); PLATELET COUNT 352 x10^3/uL (140-400); RED CELL DISTRIBUTION WIDTH 16.5 % (11.5-14.5); WHITE BLOOD COUNT 9.1 x10^3/uL (4.0-11.0)
[2017-11-04 07:07] LABS: ANION GAP 13 (6-14); BLOOD UREA NITROGEN 51 mg/dL (7-20); CALCIUM 9.3 mg/dL (8.5-10.1); CARBON DIOXIDE 25 mmol/L (21-32); CHLORIDE 100 mmol/L (98-107); CREATININE 8.2 mg/dL (0.6-1.0); GFR 5.6; GLUCOSE 97 mg/dL (70-99); SODIUM 138 mmol/L (136-145)
[2017-11-04 07:21] LABS: POTASSIUM 6.2 mmol/L (3.5-5.1)
[2017-11-04] MEDS: INSULIN REGULAR 100 UNIT/ML 10ML VIAL. IV (07:45)
[2017-11-04] MEDS: DEXTROSE 50% 25 GM / 50ML DISP.SYRIN. IV (07:45)
[2017-11-04] MEDS: SODIUM BICARB ADULT 8.4% 50 MEQ/50 ML DISP.SYRIN. IV (07:45)
[2017-11-04] MEDS ORDERED: IV NORMAL SALINE 1000ML BAG 1,000 ML IV ×2 (07:47)
[2017-11-04] MEDS ORDERED: diphenhydrAMINE 50 MG/ML VIAL IV ×2 (08:00)
[2017-11-04] MEDS: SEVELAMER CARBONATE 800 MG TABLET. PO ×4 (08:00→21:57)
[2017-11-04] MEDS ORDERED: DIALYSIS PATIENT. MC (08:00)
[2017-11-04] MEDS: CALCIUM ACETATE 667 MG CAPSULE PO ×3 (08:00→18:29)
[2017-11-04] MEDS: INSULIN ASPART 300 UNITS/3 ML INSULN.PEN SQ ×3 (08:00→17:00)
[2017-11-04] MEDS ORDERED: ACETAMINOPHEN 500 MG TABLET PO (08:00)
[2017-11-04] MEDS: LACTOBACILLUS RHAMNOSUS GG 1 CAPSULE. PO ×2 (09:00→21:58)
[2017-11-04] MEDS: hydrALAZINE 25 MG TABLET PO ×3 (09:00→21:58)
[2017-11-04] MEDS: ASPIRIN ENTERIC COATED 81 MG TABLET.DR. PO (09:00)
[2017-11-04] MEDS ORDERED: hydrALAZINE 20 MG/ML VIAL. IVP (11:30)
[2017-11-04 11:45] LABS: THYROID STIM HORMONE (TSH) 2.561 uIU/mL (0.358-3.74)
[2017-11-04 11:49] LABS: TROPONINI 0.822 ng/mL (0.000-0.055)
[2017-11-04 12:31] LABS: CHOLESTEROL 206 mg/dL (0-200); HDLC 66 mg/dL (40-60); LDLC 128 mg/dL (0-100); NON-HDL CHOLESTEROL 140 mg/dL (0-129); TRIGLYCERIDES 62 mg/dL (0-150); VLDLC 12 mg/dL (0-40)
[2017-11-04 12:32] LABS: CHOLESTEROL/HDL RATIO 3.1
[2017-11-04] MEDS ORDERED: HEPARIN for IV BOLUS 10,000 UNIT/10 ML VIAL. IV (12:45)
[2017-11-04] MEDS: FERROUS SULFATE 325 MG TABLET. PO (14:55)
[2017-11-04] MEDS: LOSARTAN POTASSIUM 50 MG TABLET. PO (14:59)
[2017-11-04] MEDS: MULTIVITAMIN with MINERAL TABLET. PO (15:00)
[2017-11-04] MEDS: FUROSEMIDE 40 MG TABLET. PO (15:00)
[2017-11-04] MEDS: ASPIRIN ENTERIC COATED 325 MG TABLET.DR. PO (15:02)
[2017-11-04] MEDS: DOXYCYCLINE HYCLATE 100 MG TABLET PO ×2 (15:02→21:58)
[2017-11-04] MEDS: amLODIPine BESYLATE 10 MG TABLET PO (15:03)
[2017-11-04 15:32] LABS: POC GLUCOSE 82 mg/dL (70-99)
[2017-11-04] MEDS ORDERED: VANCOMYCIN 500 MG in IV DEXTROSE 5% 100 ML IV (16:00)
[2017-11-04 17:01] LABS: POC GLUCOSE 157 mg/dL (70-99)
[2017-11-04] MEDS: CARVEDILOL 6.25 MG TABLET. PO (18:28)
[2017-11-04] MEDS: CINACALCET HCL 30 MG TABLET PO (18:28)
[2017-11-04 18:38] LABS: TROPONINI 5.535 ng/mL (0.000-0.055)
[2017-11-04 19:52] LABS: UNFRACTIONATED HEPARIN TESTING 0.62 IU/mL (0.30-0.70)
[2017-11-04 20:59] LABS: POC GLUCOSE 128 mg/dL (70-99)
[2017-11-04] MEDS: ATORVASTATIN CALCIUM 40 MG TABLET. PO (21:58)
[2017-11-04] MEDS: traMADol 50 MG TABLET PO (21:59)
[2017-11-05 04:04] LABS: UNFRACTIONATED HEPARIN TESTING 0.67 IU/mL (0.30-0.70)
[2017-11-05 05:11] LABS: TROPONINI 5.043 ng/mL (0.000-0.055)
[2017-11-05 07:51] LABS: POC GLUCOSE 86 mg/dL (70-99)
[2017-11-05] MEDS: CALCIUM ACETATE 667 MG CAPSULE PO ×3 (08:00→17:14)
[2017-11-05] MEDS: INSULIN ASPART 300 UNITS/3 ML INSULN.PEN SQ ×3 (08:00→17:20)
[2017-11-05] MEDS: SEVELAMER CARBONATE 800 MG TABLET. PO ×4 (08:00→20:29)
[2017-11-05] MEDS: DOXYCYCLINE HYCLATE 100 MG TABLET PO ×2 (09:00→20:28)
[2017-11-05] MEDS: MULTIVITAMIN with MINERAL TABLET. PO (09:00)
[2017-11-05] MEDS: FUROSEMIDE 40 MG TABLET. PO (09:00)
[2017-11-05] MEDS: LACTOBACILLUS RHAMNOSUS GG 1 CAPSULE. PO ×2 (09:00→20:28)
[2017-11-05] MEDS: FERROUS SULFATE 325 MG TABLET. PO (09:00)
[2017-11-05 09:34] LABS: UNFRACTIONATED HEPARIN TESTING 0.64 IU/mL (0.30-0.70)
[2017-11-05 09:39] LABS: TROPONINI 4.173 ng/mL (0.000-0.055)
[2017-11-05] MEDS: LOSARTAN POTASSIUM 50 MG TABLET. PO (09:56)
[2017-11-05] MEDS: amLODIPine BESYLATE 10 MG TABLET PO (09:57)
[2017-11-05] MEDS: CARVEDILOL 6.25 MG TABLET. PO ×2 (09:57→17:15)
[2017-11-05] MEDS: hydrALAZINE 25 MG TABLET PO ×3 (09:57→20:29)
[2017-11-05] MEDS: ASPIRIN ENTERIC COATED 81 MG TABLET.DR. PO (09:57)
[2017-11-05] MEDS: ANTI-COAG MONITOR BY PHARMACY. MC (10:45)
[2017-11-05 12:19] LABS: POC GLUCOSE 83 mg/dL (70-99)
[2017-11-05] MEDS ORDERED: LIDOCAINE 1% Multi-Dose 20 ML VIAL. (12:48)
[2017-11-05] MEDS ORDERED: IODIXANOL 320 MG/ML 100 ML VIAL. (12:48)
[2017-11-05] MEDS: CLOPIDOGREL BISULFATE 75 MG TABLET PO (14:17)
[2017-11-05 16:48] LABS: POC GLUCOSE 176 mg/dL (70-99)
[2017-11-05] MEDS: CINACALCET HCL 30 MG TABLET PO (17:14)
[2017-11-05 17:27] LABS: UNFRACTIONATED HEPARIN TESTING 0.29 IU/mL (0.30-0.70)
[2017-11-05] MEDS: HEPARIN 25,000UTS/500ML PREMIX 500 ML IV (17:32)
[2017-11-05] MEDS: ATORVASTATIN CALCIUM 40 MG TABLET. PO (20:28)
[2017-11-05 20:50] LABS: POC GLUCOSE 96 mg/dL (70-99)
[2017-11-06 00:11] LABS: UNFRACTIONATED HEPARIN TESTING 0.38 IU/mL (0.30-0.70)
[2017-11-06] MEDS: SEVELAMER CARBONATE 800 MG TABLET. PO ×3 (08:00→17:00)
[2017-11-06] MEDS: INSULIN ASPART 300 UNITS/3 ML INSULN.PEN SQ ×3 (08:00→17:00)
[2017-11-06] MEDS: CALCIUM ACETATE 667 MG CAPSULE PO ×3 (08:00→17:00)
[2017-11-06] MEDS ORDERED: DIALYSIS PATIENT. MC (08:15)
[2017-11-06 08:25] LABS: POC GLUCOSE 112 mg/dL (70-99)
[2017-11-06] MEDS: hydrALAZINE 25 MG TABLET PO ×2 (09:00→14:45)
[2017-11-06] MEDS: FERROUS SULFATE 325 MG TABLET. PO (09:00)
[2017-11-06] MEDS: MULTIVITAMIN with MINERAL TABLET. PO (09:00)
[2017-11-06] MEDS: FUROSEMIDE 40 MG TABLET. PO (09:00)
[2017-11-06] MEDS: LACTOBACILLUS RHAMNOSUS GG 1 CAPSULE. PO (09:00)
[2017-11-06 09:01] LABS: ANION GAP 11 (6-14); BLOOD UREA NITROGEN 30 mg/dL (7-20); CALCIUM 8.5 mg/dL (8.5-10.1); CARBON DIOXIDE 28 mmol/L (21-32); CHLORIDE 97 mmol/L (98-107); CREATININE 6.5 mg/dL (0.6-1.0); GFR 7.4; GLUCOSE 137 mg/dL (70-99); POTASSIUM 3.7 mmol/L (3.5-5.1); SODIUM 136 mmol/L (136-145)
[2017-11-06 12:30] LABS: POC GLUCOSE 81 mg/dL (70-99)
[2017-11-06] MEDS: CLOPIDOGREL BISULFATE 75 MG TABLET PO (12:34)
[2017-11-06] MEDS: CARVEDILOL 6.25 MG TABLET. PO ×2 (12:34→17:00)
[2017-11-06] MEDS: ASPIRIN ENTERIC COATED 81 MG TABLET.DR. PO (12:34)
[2017-11-06] MEDS: DOXYCYCLINE HYCLATE 100 MG TABLET PO (12:35)
[2017-11-06] MEDS: amLODIPine BESYLATE 10 MG TABLET PO (12:35)
[2017-11-06] MEDS: LOSARTAN POTASSIUM 50 MG TABLET. PO (12:36)
[2017-11-06] MEDS: CINACALCET HCL 30 MG TABLET PO (17:00)
== END 2017-11-06 19:35 | disposition home or self-care (01) | DRG 682 ==
LOC: ER 13:18 → 2 NORTH 11-04 14:00 → 4 NORTH 15:13
PROC: 5A1D70Z Performance of Urinary Filtration, Intermittent, Less than 6 Hours Per Day (ICD-10-PCS; principal; 2017-11-04)
PROC: 5A1D70Z Performance of Urinary Filtration, Intermittent, Less than 6 Hours Per Day (ICD-10-PCS; 2017-11-06)
DX: I13.11 Hypertensive heart and chronic kidney disease without heart failure, with stage 5 chronic kidney disease, or end stage renal disease (principal); I21.4 Non-ST elevation (NSTEMI) myocardial infarction; E11.22 Type 2 diabetes mellitus with diabetic chronic kidney disease; L03.115 Cellulitis of right lower limb; E11.51 Type 2 diabetes mellitus with diabetic peripheral angiopathy without gangrene; E87.5 Hyperkalemia; N18.6 End stage renal disease; I38 Endocarditis, valve unspecified; L97.213 Non-pressure chronic ulcer of right calf with necrosis of muscle; L97.819 Non-pressure chronic ulcer of other part of right lower leg with unspecified severity; I27.20 Pulmonary hypertension, unspecified; D64.9 Anemia, unspecified; E03.9 Hypothyroidism, unspecified; E78.00 Pure hypercholesterolemia, unspecified; E78.5 Hyperlipidemia, unspecified; I25.10 Atherosclerotic heart disease of native coronary artery without angina pectoris; J44.9 Chronic obstructive pulmonary disease, unspecified; E21.3 Hyperparathyroidism, unspecified; E66.9 Obesity, unspecified; I87.309 Chronic venous hypertension (idiopathic) without complications of unspecified lower extremity; M19.90 Unspecified osteoarthritis, unspecified site; M54.16 Radiculopathy, lumbar region; I70.201 Unspecified atherosclerosis of native arteries of extremities, right leg; Z82.49 Family history of ischemic heart disease and other diseases of the circulatory system; Z83.3 Family history of diabetes mellitus; Z90.710 Acquired absence of both cervix and uterus; Z99.2 Dependence on renal dialysis; Z68.34 Body mass index [BMI] 34.0-34.9, adult; Z98.49 Cataract extraction status, unspecified eye; Z90.49 Acquired absence of other specified parts of digestive tract
CPT/HCPCS: 36415; 80048; 80053; 80061; 80202; 81001; 82962; 84443; 84484; 85025; 85520; 87070; 87086; 87186; 87205; 93005; 93306; 93926; 96365; 97116-GP; 97162-GP; 97166-GO; 99285; 99285-25; J0360; J0881; J2270; J2405; J2543; J3370; J7030

== ENCOUNTER → 2017-11-17 | Outpatient (CLI) | payer OTHER | END | disposition home or self-care (01) | LOC: PMGWOUND 11:03 | DX: I70.232 Atherosclerosis of native arteries of right leg with ulceration of calf (principal); L97.212 Non-pressure chronic ulcer of right calf with fat layer exposed; I25.10 Atherosclerotic heart disease of native coronary artery without angina pectoris; J44.9 Chronic obstructive pulmonary disease, unspecified; E11.22 Type 2 diabetes mellitus with diabetic chronic kidney disease; I13.11 Hypertensive heart and chronic kidney disease without heart failure, with stage 5 chronic kidney disease, or end stage renal disease; N18.6 End stage renal disease; E21.3 Hyperparathyroidism, unspecified; E66.9 Obesity, unspecified; E78.00 Pure hypercholesterolemia, unspecified; E11.51 Type 2 diabetes mellitus with diabetic peripheral angiopathy without gangrene; M19.90 Unspecified osteoarthritis, unspecified site; I25.2 Old myocardial infarction; Z87.891 Personal history of nicotine dependence; Z90.710 Acquired absence of both cervix and uterus; Z99.2 Dependence on renal dialysis; Z68.34 Body mass index [BMI] 34.0-34.9, adult | CPT/HCPCS: 97597 ==

== ENCOUNTER 2018-10-04 10:30 | Emergency (ER) | payer OTHER ==
[~2018-10-04] VITALS: Ht 154.9 cm; Wt 85.3 kg
[~2018-10-04 10:30] MED LIST changes: +ALBU2.5V8 INH; -AMLO10TA2 PO; +AMLO10TA8 PO; -CALC667T PO; +CALC667T4 PO; +CLON0.2T PO; +CLON1PAT10 TD; +DOXY100T PO; -FERR-26 PO; +FERR325T14 PO; -HYDR-2758 PO; +HYDR-2761 PO; +LOSA100T14 PO; -LOSA100T6 PO
[2018-10-04 11:47] VITALS: BP 141/63
--- NOTE | 2018-10-04 11:50 | PHYS DOC ---
Past Medical History Past Medical History: Anemia, Diabetes-Type II, High Cholesterol, Hypertension , Renal Failure Additional Past Medical Histor: PVD,OBESITY Past Surgical History: Other Additional Past Surgical Histo: NON CANCER "OVARIAN MASS" , dialysis shunt placement Alcohol Use: None Drug Use: None Adult General Chief Complaint Chief Complaint: LOWER EXTREMITY SWELLING HPI HPI Patient is a 88 year old -[place] female with history of end-stage renal disease currently on dialysis who presents with increased right leg pain tenderness and swelling over the past several days. Patient was scheduled for dialysis's morning but missed it due to fatigue and generalized weakness. Denies nausea vomiting, sweats. No chest pain chest tightness, shortness of breath. No history of DVT or PE. No other acute symptoms or complaints. Patient' s accompanied at bedside by granddaughter. [] Review of Systems Review of Systems Review symptoms as per history of present illness. All other review symptoms are negative. [] All other systems were reviewed and found to be within normal limits, except as documented in this note. Allergies Allergies Allergies Coded Allergies Type Severity Reaction Last Updated Verified No Known Drug Allergies 07/14/17 No Physical Exam Physical Exam Constitutional: Well developed, well nourished, no acute distress, non-toxic appearance. [] HENT: Normocephalic, atraumatic, bilateral external ears normal, oropharynx moist, nose normal. [] Eyes: PERRLA, EOMI. [] Neck: Normal range of motion. [] Cardiovascular:Heart rate regular rhythm, no murmur. [] Lungs & Thorax: Bilateral breath sounds clear to auscultation [] Abdomen: Bowel sounds normal, soft, no tenderness. [] Skin: Warm, dry. No cellulitis, appropriate for ethnicity.[] Back: No tenderness. [] Extremities: No tenderness, R lower extremity, approximately, proximally 30% greater than left, negative Homans sign.. [] Neurologic: Alert and oriented X 3, normal motor function, normal sensory function, no focal deficits noted. [] Psychologic: Affect normal, judgement normal, mood normal. [] Current Patient Data Vital Signs Vital Signs Date Time Temp Pulse Resp B/P (MAP) Pulse Ox O2 Delivery O2 Flow Rate FiO2 10/04/18 11:47 80 15 141/63 (89) 97 10/04/18 11:05 97.9 Room Air 97.9 Lab Values Laboratory Tests Test 10/04/18 12:20 White Blood Count 5.3 x10^3/uL (4.0-11.0) Red Blood Count 3.51 x10^6/uL (3.50-5.40) Hemoglobin 10.8 g/dL (12.0-15.5) L Hematocrit 33.4 % (36.0-47.0) L Mean Corpuscular Volume 95 fL (79-100) Mean Corpuscular Hemoglobin 31 pg (25-35) Mean Corpuscular Hemoglobin Concent 32 g/dL (31-37) Red Cell Distribution Width 17.0 % (11.5-14.5) H Platelet Count 245 x10^3/uL (140-400) Neutrophils (%) (Auto) 68 % (31-73) Lymphocytes (%) (Auto) 17 % (24-48) L Monocytes (%) (Auto) 10 % (0-9) H Eosinophils (%) (Auto) 4 % (0-3) H Basophils (%) (Auto) 1 % (0-3) Neutrophils # (Auto) 3.6 x10^3uL (1.8-7.7) Lymphocytes # (Auto) 0.9 x10^3/uL (1.0-4.8) L Monocytes # (Auto) 0.6 x10^3/uL (0.0-1.1) Eosinophils # (Auto) 0.2 x10^3/uL (0.0-0.7) Basophils # (Auto) 0.0 x10^3/uL (0.0-0.2) Sodium Level 141 mmol/L (136-145) Potassium Level 4.6 mmol/L (3.5-5.1) Chloride Level 99 mmol/L (98-107) Carbon Dioxide Level 26 mmol/L (21-32) Anion Gap 16 (6-14) H Blood Urea Nitrogen 60 mg/dL (7-20) H Creatinine 9.7 mg/dL (0.6-1.0) H Estimated GFR (Cockcroft-Gault) 4.6 BUN/Creatinine Ratio 6 (6-20) Glucose Level 98 mg/dL (70-99) Calcium Level 9.7 mg/dL (8.5-10.1) Total Bilirubin 0.4 mg/dL (0.2-1.0) Aspartate Amino Transferase (AST) 20 U/L (15-37) Alanine Aminotransferase (ALT) 24 U/L (14-59) Alkaline Phosphatase 110 U/L (46-116) KA-Wls-Y-Type Natriuretic Peptide 40803 pg/mL (0-449) H Total Protein 8.1 g/dL (6.4-8.2) Albumin 3.2 g/dL (3.4-5.0) L Albumin/Globulin Ratio 0.7 (1.0-1.7) L Laboratory Tests 10/04/18 12:20 Laboratory Tests 10/04/18 12:20 EKG EKG [] Radiology/Procedures Radiology/Procedures [CVUS RLE:] Course & Med Decision Making Course & Med Decision Making Pertinent Labs and Imaging studies reviewed. (See chart for details) [ No Findings of DVT. Patient is volume overloaded but is not short of breath is not hypoxic. Recommend PCP follow-up in dialysis. Return precautions reviewed] Dragon Disclaimer Dragon Disclaimer This electronic medical record was generated, in whole or in part, using a voice recognition dictation system. Departure Departure Impression: Primary Impression: Right leg swelling Additional Impression: End stage renal disease Disposition: HOME, SELF-CARE Condition: GOOD Referrals: URMILA HAGER MD (PCP) Problem Qualifiers DORA HAZEL DO Oct 04, 2018 11:50
--- NOTE | 2018-10-04 12:06 | RAD ---
Right lower extremity venous duplex study 10/04/2018 Clinical History: Right leg swelling. Technique: Using a combination of real time ultrasound imaging and color-flow and pulse Doppler imaging techniques along with graded compression and augmentation, duplex evaluation of the deep venous system of the right lower extremity was performed. Multiple images were obtained. Findings: There is no sonographic evidence of deep venous thrombosis involving the visualized deep venous structures of the right lower extremity. Impression: Negative study. Electronically signed by: Washington Nicholson MD (10/04/2018 12:01 PM) [id number]
[2018-10-04 12:41] LABS: BASO % 1 % (0-3); EOS # 0.2 x10^3/uL (0.0-0.7); EOS % 4 % (0-3); HEMATOCRIT 33.4 % (36.0-47.0); HEMOGLOBIN 10.8 g/dL (12.0-15.5); LYMPH # 0.9 x10^3/uL (1.0-4.8); LYMPH % 17 % (24-48); MEAN CORPUSCULAR HEMOGLOBIN 31 pg (25-35); MEAN CORPUSCULAR HGB CONC 32 g/dL (31-37); MEAN CORPUSCULAR VOLUME 95 fL (79-100); MONO # 0.6 x10^3/uL (0.0-1.1); MONO % 10 % (0-9); NEUT # 3.6 x10^3uL (1.8-7.7); NEUT % 68 % (31-73); PLATELET COUNT 245 x10^3/uL (140-400); RED BLOOD COUNT 3.51 x10^6/uL (3.50-5.40); WHITE BLOOD COUNT 5.3 x10^3/uL (4.0-11.0)
[2018-10-04 12:51] LABS: CALCIUM 9.7 mg/dL (8.5-10.1); CREATININE 9.7 mg/dL (0.6-1.0); GFR 4.6; POTASSIUM 4.6 mmol/L (3.5-5.1)
[2018-10-04 12:56] LABS: ALBUMIN 3.2 g/dL (3.4-5.0); ALBUMIN/GLOBULIN RATIO 0.7 (1.0-1.7); TOTAL BILIRUBIN 0.4 mg/dL (0.2-1.0); TOTAL PROTEIN 8.1 g/dL (6.4-8.2)
== END 2018-10-04 19:52 | disposition home or self-care (01) ==
LOC: ER 10:30
DX: R22.41 Localized swelling, mass and lump, right lower limb (principal); I12.0 Hypertensive chronic kidney disease with stage 5 chronic kidney disease or end stage renal disease; E11.22 Type 2 diabetes mellitus with diabetic chronic kidney disease; N18.6 End stage renal disease; Z99.2 Dependence on renal dialysis; I73.9 Peripheral vascular disease, unspecified; E78.00 Pure hypercholesterolemia, unspecified; E66.9 Obesity, unspecified; Z68.35 Body mass index [BMI] 35.0-35.9, adult
CPT/HCPCS: 36415; 80053; 83880; 85025; 93971; 99284-25

== ENCOUNTER 2018-10-24 13:44 | Inpatient (IN) | payer OTHER ==
[~2018-10-24] VITALS: Ht 154.9 cm; Wt 83.5 kg
[2018-10-24] MEDS ORDERED: ASPIRIN 325 MG TABLET PO ONE (14:45)
[2018-10-24 14:56] LABS: PROTHROMBIN TIME PATIENT 14.2 SEC (11.7-14.0)
[2018-10-24] MEDS ORDERED: fentaNYL PF VIAL 100 MCG/2 ML VIAL IV ONE (15:00)
--- NOTE | 2018-10-24 15:01 | RAD ---
Chest radiograph 10/24/2018 2:31 PM INDICATION: Dyspnea COMPARISON: August 14, 2018 TECHNIQUE: Portable upright frontal view of the chest is provided. FINDINGS: The cardiomediastinal silhouette is enlarged, stable. There is tortuosity of the thoracic aorta with mild calcified atheromatous plaque. There are no pleural effusions. Mild pulmonary vascular congestion. There is no pneumothorax. Bibasilar subsegmental atelectasis is noted. Calcified bilateral hilar lymph nodes are identified. Findings are stable. No significant osseous abnormality is identified. IMPRESSION: Mild pulmonary vascular congestion as may be seen with mild congestive heart failure. There is bibasilar subsegmental atelectasis. Electronically signed by: Eusebia Rose MD (10/24/2018 2:56 PM) [facility]
--- NOTE | 2018-10-24 15:15 | EKG ---
[facility] [address] [place] [address] Test Date: 2018-10-24 Test Time: 14:08:11 Pat Name: JAVON STYLES Department: Room: Gender: F [employer] Operator: : [id number] Requested By: BETI GROSSMAN Order Number: [id number] Reading MD: Jaciel Cotton MD Measurements Intervals [place] Rate: 96 P: 3 ND: 112 QRS: 58 QRSD: 90 T: 57 QT: 368 QTc: 466 Interpretive Statements SINUS RHYTHM Electronically Signed On 10-25-2018 10:18:08 [employer] by Jaciel Cotton MD
[2018-10-24 15:25] LABS: BASO # 0.1 x10^3/uL (0.0-0.2); BASO % 1 % (0-3); EOS # 0.1 x10^3/uL (0.0-0.7); EOS % 1 % (0-3); HEMATOCRIT 32.7 % (36.0-47.0); HEMOGLOBIN 10.3 g/dL (12.0-15.5); LYMPH # 0.7 x10^3/uL (1.0-4.8); LYMPH % 9 % (24-48); MEAN CORPUSCULAR HEMOGLOBIN 29 pg (25-35); MEAN CORPUSCULAR HGB CONC 32 g/dL (31-37); MEAN CORPUSCULAR VOLUME 93 fL (79-100); MONO # 0.6 x10^3/uL (0.0-1.1); MONO % 8 % (0-9); NEUT # 5.9 x10^3uL (1.8-7.7); NEUT % 81 % (31-73); PLATELET COUNT 293 x10^3/uL (140-400); RED BLOOD COUNT 3.53 x10^6/uL (3.50-5.40); WHITE BLOOD COUNT 7.3 x10^3/uL (4.0-11.0)
[2018-10-24 15:46] LABS: CALCIUM 9.7 mg/dL (8.5-10.1); CREATININE 8.6 mg/dL (0.6-1.0); GFR 5.3
[2018-10-24 15:51] LABS: ALBUMIN 3.3 g/dL (3.4-5.0); ALBUMIN/GLOBULIN RATIO 0.7 (1.0-1.7); MAGNESIUM 2.5 mg/dL (1.8-2.4); TOTAL BILIRUBIN 0.5 mg/dL (0.2-1.0); TOTAL PROTEIN 7.8 g/dL (6.4-8.2)
[2018-10-24 16:08] LABS: CREATINE KINASE 154 U/L (26-192)
--- NOTE | 2018-10-24 16:12 | RAD ---
Bilateral Lower Extremity Venous Doppler Ultrasound History: Bilateral lower extremity edema Comparison: None Procedure: Color flow, duplex, spectral analysis and 2D images are obtained with and without compression in the area of the common femoral vein, superficial femoral vein - femoral vein junction, main femoral vein (superficial femoral vein) and popliteal vein. Veins of the proximal calf are also imaged. Findings: There is normal duplex flow, color flow and compressibility of all visualized vein segments. No evidence of deep venous thrombus is present. Impression: No evidence of DVT. Electronically signed by: Solomon Clark III, MD (10/24/2018 4:08 PM) [facility] [place]
[2018-10-24] MEDS ORDERED: CALCIUM GLUCONATE 1,000 MG/10 ML VIAL. IVP ONE (16:15)
[2018-10-24] MEDS ORDERED: INSULIN REGULAR 100 UNIT/ML 3ML VIAL. IV ONE (16:15)
[2018-10-24] MEDS ORDERED: DEXTROSE 50% 25 GM / 50ML DISP.SYRIN. IV ONE ×2 (16:15→18:00)
[2018-10-24] MEDS ORDERED: BUMETANIDE 1 MG/4 ML VIAL. IV ONE (16:19)
[2018-10-24] MEDS ORDERED: ONDANSETRON PF 4 MG/2 ML VIAL. IV PRN (17:15)
[2018-10-24] MEDS ORDERED: SODIUM POLYSTYRENE SULFONATE 15 GM/60 ML ORAL.SUSP. PO ONE (17:15)
[2018-10-24] MEDS ORDERED: fentaNYL PF VIAL 100 MCG/2 ML VIAL IV PRN (17:15)
[2018-10-24] MEDS ORDERED: NITROGLYCERIN OINT 1 GM PACKET. TP ONE (17:15)
--- NOTE | 2018-10-24 17:21 | PHYS DOC ---
Past Medical History Past Medical History: Diabetes-Type II, Hypertension, Renal Disease, Renal Failure, Vascular Disease Additional Past Medical Histor: PVD,OBESITY Past Surgical History: Other Additional Past Surgical Histo: NON CANCER "OVARIAN MASS" , dialysis shunt placement Alcohol Use: None Drug Use: None Adult General Chief Complaint Chief Complaint: LOWER EXTREMITY SWELLING HPI HPI 88 y/o female presents with history of shortness of breath and bilateral lower extremity edema and pain with generalized malaise x 3 days. Reports swelling and pain worse to RLE. Denies fever/chills. Denies trauma. Patient also reports history of diarrhea. Patient with pmh of CHF and ESRD on HD. Review of Systems Review of Systems Constitutional: Denies fever or chills [] Eyes: Denies change in visual acuity, redness, or eye pain [] HENT: Denies nasal congestion or sore throat [] Respiratory: Reports shortness of breath and cough Cardiovascular: Denies chest pain or palpitatons GI: Denies nausea or vomiting; reports diarrhea [] : Denies dysuria or hematuria [] Musculoskeletal: Denies back pain or joint pain [] Integument: Denies rash or skin lesions [] Neurologic: Denies headache, focal weakness or sensory changes [] Complete systems were reviewed and found to be within normal limits, except as documented in this note. Current Medications Current Medications Current Medications Medications (Trade) Dose Ordered Sig/Virgil Start Time Stop Time Status Last Admin Dose Admin Aspirin (Margie Aspirin) 325 mg 1X ONCE 10/24/18 14:45 10/24/18 14:46 DC 10/24/18 14:51 325 MG Bumetanide (Bumex) 1 mg 1X ONCE 10/24/18 16:19 10/24/18 16:20 DC 10/24/18 16:35 1 MG Calcium Gluconate (Calcium Gluconate) 1,000 mg 1X ONCE 10/24/18 16:15 10/24/18 16:19 DC 10/24/18 16:34 1,000 MG Dextrose (Dextrose 50%-Water Syringe) 25 gm 1X ONCE 10/24/18 16:15 10/24/18 16:19 DC 10/24/18 16:35 25 GM Fentanyl Citrate (Fentanyl 2ml Vial) 50 mcg 1X ONCE 10/24/18 15:00 10/24/18 15:01 DC 10/24/18 16:34 50 MCG Insulin Human Regular (HumuLIN R VIAL) 10 unit 1X ONCE 10/24/18 16:15 10/24/18 16:19 DC 10/24/18 16:36 10 UNIT Allergies Allergies Allergies Coded Allergies Type Severity Reaction Last Updated Verified No Known Drug Allergies 07/14/17 No Physical Exam Physical Exam Constitutional: Well developed, well nourished, increased work of breathing HENT: Normocephalic, atraumatic, oropharynx moist Eyes: Conjunctiva normal, no discharge. [] Neck: Normal range of motion, no tenderness, supple, JVD Cardiovascular: Heart rate regular rhythm, no murmur [] Lungs & Thorax: Fine rales noted bilaterally at bases, increased work of breathing Abdomen: Soft, no tenderness Skin: Warm, dry, mild erythema to BLE Extremities: 3+ edema to BLE, tender to palpation Neurologic: Alert and oriented X 3, normal motor function, normal sensory function, no focal deficits noted. [] Psychologic: Affect normal, judgement normal, mood normal. [] Current Patient Data Vital Signs Lab Values Laboratory Tests Test 10/24/18 14:02 10/24/18 14:27 10/24/18 15:15 Glucose (Fingerstick) 108 mg/dL (70-99) H Prothrombin Time 14.2 SEC (11.7-14.0) H Prothrombin Time INR 1.1 (0.8-1.1) PTT 35 SEC (24-38) White Blood Count 7.3 x10^3/uL (4.0-11.0) Red Blood Count 3.53 x10^6/uL (3.50-5.40) Hemoglobin 10.3 g/dL (12.0-15.5) L Hematocrit 32.7 % (36.0-47.0) L Mean Corpuscular Volume 93 fL (79-100) Mean Corpuscular Hemoglobin 29 pg (25-35) Mean Corpuscular Hemoglobin Concent 32 g/dL (31-37) Red Cell Distribution Width 17.0 % (11.5-14.5) H Platelet Count 293 x10^3/uL (140-400) Neutrophils (%) (Auto) 81 % (31-73) H Lymphocytes (%) (Auto) 9 % (24-48) L Monocytes (%) (Auto) 8 % (0-9) Eosinophils (%) (Auto) 1 % (0-3) Basophils (%) (Auto) 1 % (0-3) Neutrophils # (Auto) 5.9 x10^3uL (1.8-7.7) Lymphocytes # (Auto) 0.7 x10^3/uL (1.0-4.8) L Monocytes # (Auto) 0.6 x10^3/uL (0.0-1.1) Eosinophils # (Auto) 0.1 x10^3/uL (0.0-0.7) Basophils # (Auto) 0.1 x10^3/uL (0.0-0.2) Sodium Level 142 mmol/L (136-145) Potassium Level 6.0 mmol/L (3.5-5.1) H Chloride Level 101 mmol/L (98-107) Carbon Dioxide Level 27 mmol/L (21-32) Anion Gap 14 (6-14) Blood Urea Nitrogen 40 mg/dL (7-20) H Creatinine 8.6 mg/dL (0.6-1.0) H Estimated GFR (Cockcroft-Gault) 5.3 BUN/Creatinine Ratio 5 (6-20) L Glucose Level 97 mg/dL (70-99) Lactic Acid Level 2.4 mmol/L (0.4-2.0) H Calcium Level 9.7 mg/dL (8.5-10.1) Magnesium Level 2.5 mg/dL (1.8-2.4) H Total Bilirubin 0.5 mg/dL (0.2-1.0) Aspartate Amino Transferase (AST) 33 U/L (15-37) Alanine Aminotransferase (ALT) 35 U/L (14-59) Alkaline Phosphatase 133 U/L (46-116) H Creatine Kinase 154 U/L (26-192) Creatine Kinase MB (Mass) 2.1 ng/mL (0.0-3.6) Creatine Kinase MB Relative Index 1.4 % (0-4) Troponin I Quantitative 0.574 ng/mL (0.000-0.055) UH-Jae-C-Type Natriuretic Peptide > 89089 pg/mL (0-449) H Total Protein 7.8 g/dL (6.4-8.2) Albumin 3.3 g/dL (3.4-5.0) L Albumin/Globulin Ratio 0.7 (1.0-1.7) L Lipase 89 U/L (73-393) Laboratory Tests 10/24/18 15:15 Laboratory Tests 10/24/18 15:15 EKG EKG [] Radiology/Procedures Radiology/Procedures PROCEDURE: VENOUS LOWER EXT BILATERAL Bilateral Lower Extremity Venous Doppler Ultrasound History: Bilateral lower extremity edema Comparison: None Procedure: Color flow, duplex, spectral analysis and 2D images are obtained with and without compression in the area of the common femoral vein, superficial femoral vein - femoral vein junction, main femoral vein (superficial femoral vein) and popliteal vein. Veins of the proximal calf are also imaged. Findings: There is normal duplex flow, color flow and compressibility of all visualized vein segments. No evidence of deep venous thrombus is present. Impression: No evidence of DVT. Electronically signed by: Solomon Clark III, MD (10/24/2018 4:08 PM) [facility] PROCEDURE: PORTABLE CHEST 1V Chest radiograph 10/24/2018 2:31 PM INDICATION: Dyspnea COMPARISON: August 14, 2018 TECHNIQUE: Portable upright frontal view of the chest is provided. FINDINGS: The cardiomediastinal silhouette is enlarged, stable. There is tortuosity of the thoracic aorta with mild calcified atheromatous plaque. There are no pleural effusions. Mild pulmonary vascular congestion. There is no pneumothorax. Bibasilar subsegmental atelectasis is noted. Calcified bilateral hilar lymph nodes are identified. Findings are stable. No significant osseous abnormality is identified. IMPRESSION: Mild pulmonary vascular congestion as may be seen with mild congestive heart failure. There is bibasilar subsegmental atelectasis. Electronically signed by: Eusebia Rose MD (10/24/2018 2:56 PM) [facility] Course & Med Decision Making Course & Med Decision Making Pertinent Labs and Imaging studies reviewed. (See chart for details) Elderly patient with pmh of ESRD on dialysis and CHF presents with generalized malaise with progressive dyspnea and increased BLE edema and discomfort x 3 days. EKG stable. CXR with signs of pulmonary edema. Labs obtained and posted to chart. Hyperkalemia addressed. Elevated troponin noted. Venous dopplers negative for acute DVT. Pulmonary edema also treated with bumex. Patient requiring admission for further evaluation and treatment. Discussed with Dr. Lechuga (hospitalist) who is in agreement with admit. Discussed findings and plan with patient, who acknowledges understanding and agreement. Dragon Disclaimer Dragon Disclaimer This electronic medical record was generated, in whole or in part, using a voice recognition dictation system. Departure Departure Impression: Primary Impression: Hyperkalemia Additional Impressions: Pulmonary edema ESRD (end stage renal disease) on dialysis Elevated troponin Disposition: ADMITTED INPATIENT Admitting Physician: Sam Macedo Condition: GUARDED Referrals: URMILA HAGER MD (PCP) Critical Care Time Critical care time was 30 minutes which includes time at bedside, spent in discussion of patient's care with specialists and/or family members, with interpretation of laboratory and/or radiological studies and is exclusive of procedures. Problem Qualifiers Additional Impressions: Pulmonary edema Chronicity: acute Qualified Codes: J81.0 - Acute pulmonary edema BETI GROSSMAN DO Oct 24, 2018 17:21
[2018-10-24] MEDS ORDERED: DEXTROSE 50% 25 GM / 50ML DISP.SYRIN. IV PRN (17:30)
[2018-10-24] MEDS ORDERED: hydrALAZINE 20 MG/ML VIAL. IVP ONE (18:15)
[2018-10-24 18:50] VITALS: BP 121/45
--- NOTE | 2018-10-24 19:03 | PDOC1 ---
History and Physical Date of Admission Date of Admission DATE: 10/24/18 TIME: 19:00 Identification/Chief Complaint Chief Complaint 88 [facility], superficial wounds both legs, elevated troponin i, hyperkalemia, has not felt well x 3 days, has known ESRD on dialysis, cxr c/w acute CHF Past Medical History Past Medical History Past Medical History Past Medical History: Diabetes-Type II, Hypertension, Renal Disease, Renal Failure, Vascular Disease , Secondary pulmonary hypertension. Additional Past Medical Histor: PVD,OBESITY Past Surgical History: Other Additional Past Surgical Histo: NON CANCER "OVARIAN MASS" , dialysis shunt placement Alcohol Use: None Drug Use: None FAMILY HX HTN Cardiovascular: CAD, HTN, Hyperlipidemia, Pulmonary hypertension Pulmonary: COPD CENTRAL NERVOUS SYSTEM: Other GI: No pertinent hx Heme/Onc: Anemia NOS Hepatobiliary: No pertinent hx Psych: No pertinent hx Musculoskeletal: Osteoarthritis, Other Rheumatologic: No pertinent hx Infectious disease: No pertinent hx Renal/: Chronic renal failure, Other Endocrine: Diabetes, Hypothyroidism, Hyperparathyroidism Past Surgical History Past Surgical History: Arthroscopy, Cataract Removal, Hysterectomy, Colon Resection, Other Family History Family History: Diabetes Social History Smoke: No ALCOHOL: none Drugs: None Current Problem List Problem List Problems Medical Problems: (1) Hyperkalemia Status: Acute Current Medications Current Medications Current Medications Aspirin (Margie Aspirin) 325 mg 1X ONCE PO Last administered on 10/24/18at 14:51 ; Start 10/24/18 at 14:45; Stop 10/24/18 at 14:46; Status DC Fentanyl Citrate (Fentanyl 2ml Vial) 50 mcg 1X ONCE IV Last administered on 10/24/18at 16:34; Start 10/24/18 at 15:00; Stop 10/24/18 at 15:01; Status DC Bumetanide (Bumex) 1 mg 1X ONCE IV Last administered on 10/24/18at 16:35; Start 10/24/18 at 16:19; Stop 10/24/18 at 16:20; Status DC Calcium Gluconate (Calcium Gluconate) 1,000 mg 1X ONCE IVP Last administered on 10/24/18at 16:34; Start 10/24/18 at 16:15; Stop 10/24/18 at 16:19; Status DC Insulin Human Regular (HumuLIN R VIAL) 10 unit 1X ONCE IV Last administered on 10/24/18at 16:36; Start 10/24/18 at 16:15; Stop 10/24/18 at 16:19; Status DC Dextrose (Dextrose 50%-Water Syringe) 25 gm 1X ONCE IV Last administered on 10/24/18at 16:35; Start 10/24/18 at 16:15; Stop 10/24/18 at 16:19; Status DC Nitroglycerin (Nitro-Bid Oint) 1 inch 1X ONCE TP Last administered on at 17:15; Start 10/24/18 at 17:15; Stop 10/24/18 at 17:16; Status DC Sodium Polystyrene Sulfonate (Kayexalate) 30 gm 1X ONCE PO Last administered on 10/24/18at 17:16; Start 10/24/18 at 17:15; Stop 10/24/18 at 17:16; Status DC Ondansetron HCl (Zofran) 4 mg PRN Q8HRS PRN IV NAUSEA/VOMITING; Start 10/24/18 at 17:15; Stop 10/25/18 at 17:14 Fentanyl Citrate (Fentanyl 2ml Vial) 50 mcg Q2HR PRN IV PAIN; Start 10/24/18 at 17:15; Stop 10/25/18 at 17:14 Insulin Human Lispro (HumaLOG) 0-5 UNITS TIDWMEALS SQ ; Start 10/25/18 at 08:00 Dextrose (Dextrose 50%-Water Syringe) 12.5 gm PRN Q15MIN PRN IV SEE COMMENTS; Start 10/24/18 at 17:30 Dextrose (Dextrose 50%-Water Syringe) 25 gm 1X ONCE IV Last administered on 10/24/18at 18:02; Start 10/24/18 at 18:00; Stop 10/24/18 at 18:04; Status DC Hydralazine HCl (Apresoline Inj) 20 mg 1X ONCE IVP Last administered on at 18:09; Start 10/24/18 at 18:15; Stop 10/24/18 at 18:16; Status DC Active Scripts Active Proair Hfa Inhaler (Albuterol Sulfate) 8.5 Gm Hfa.aer.ad 1 Puff INH PRN Q6HRS PRN 14 Days Doxycycline Hyclate 100 Mg Tablet 100 Mg PO BID 7 Days Reported Catapres-Tts 2 (Clonidine) 1 Each Patch.tdwk 1 Each TD WEEKLY Clonidine Hcl 0.2 Mg Tablet 0.2 Mg PO BID Dialyvite [place] D Tablet (Multivitamin, Min Cmb#25/Fa/D3) 1 Each Tablet 1 Each PO DAILY Renvela (Sevelamer Carbonate) 800 Mg Tablet 2 Tab PO TIDWMEALHC Sensipar (Cinacalcet Hcl) 30 Mg Tablet 1 Tab PO DAILYWSUP Calcium Acetate 667 Mg Tablet 1,334 Mg PO TIDWMEALS Lovastatin 10 Mg Tablet 10 Mg PO HS Losartan Potassium 100 Mg Tablet 100 Mg PO DAILY Amlodipine Besylate 10 Mg Tablet 10 Mg PO PRN DAILY PRN Ferrous Sulfate 325 Mg Tablet 1 Tab PO DAILY Lasix (Furosemide) 40 Mg Tablet 1 Tab PO DAILY Aspir 81 (Aspirin) 81 Mg Tablet.dr 1 Tab PO DAILY Allergies Allergies: Coded Allergies: No Known Drug Allergies (Unverified , 07/14/17) ROS Review of System Review of Systems Review of Systems Constitutional: Denies fever or chills [] Eyes: Denies change in visual acuity, redness, or eye pain [] HENT: Denies nasal congestion or sore throat [] Respiratory: Denies cough or shortness of breath [] Cardiovascular: EDEMA BOTH LEGS, SOA GI: Denies abdominal pain, nausea, vomiting, bloody stools or diarrhea [] : Denies dysuria or hematuria [] Musculoskeletal: Denies back pain or joint pain [] Integument: Denies rash or skin lesions [] Neurologic: Denies headache, focal weakness or sensory changes [] Endocrine: Denies polyuria or polydipsia [] 14 PT systems were reviewed and found to be within normal limits, except as documented Respiratory: YES: Shortness of breath, SOB with excertion Gastrointestinal: No Nausea, No Vomiting, No Abdominal Pain, No Diarrhea, No Constipation, No Melena, No Hematochezia, No Other Musculoskeletal: Yes Joint Stiffness Neurological: Yes Gait Disturbance Skin: Yes Dry Skin, Yes Rash Physical Exam Physical Exam Physical Exam Physical Exam Constitutional: Well developed, well nourished, MILD acute distress, non-toxic appearance. [] HENT: Normocephalic, atraumatic, bilateral external ears normal, oropharynx moist, no oral exudates, nose normal. [] Eyes: PERRLA, EOMI, conjunctiva normal, no discharge. [] Neck: Normal range of motion, no tenderness, supple, no stridor. [] Cardiovascular:Heart rate regular rhythm, no murmur [] Lungs & Thorax: Bilateral breath sounds clear to auscultation [] Abdomen: Bowel sounds normal, soft, no tenderness, no masses, no pulsatile masses. [] Skin: Cellulitis / rash.both lower legs, edema [] Back: No tenderness, no CVA tenderness. [] Extremities: No tenderness, no cyanosis, no clubbing, ROM intact, mild edema. [ ] Neurologic: Alert and oriented X 3, normal motor function, normal sensory function, no focal deficits noted. [] Psychologic: Affect normal, judgement normal, mood normal. [] General: Alert, Oriented X3, Cooperative, mild distress HEENT: Atraumatic, EOMI Heart: no thrills Breasts: Not examined Abdomen: Normal bowel sounds, Soft Rectal Exam: not examined PELVIC: Examination not indicated Extremities: No cyanosis Skin: Other (cellulitis both lower legs r> l) Neuro: Normal speech, Cranial nerves 3-12 NL Psych/Mental Status: Mental status NL Vitals Vitals Vital Signs Date Time Temp Pulse Resp B/P (MAP) Pulse Ox O2 Delivery O2 Flow Rate FiO2 10/24/18 18:37 92 16 140/78 (98) 10/24/18 16:34 96 Room Air 10/24/18 14:09 98.1 98.1 Labs Labs Laboratory Tests Test 10/24/18 14:02 10/24/18 14:27 10/24/18 15:15 Glucose (Fingerstick) 108 mg/dL (70-99) Prothrombin Time 14.2 SEC (11.7-14.0) Prothromb Time International Ratio 1.1 (0.8-1.1) Activated Partial Thromboplast Time 35 SEC (24-38) White Blood Count 7.3 x10^3/uL (4.0-11.0) Red Blood Count 3.53 x10^6/uL (3.50-5.40) Hemoglobin 10.3 g/dL (12.0-15.5) Hematocrit 32.7 % (36.0-47.0) Mean Corpuscular Volume 93 fL (79-100) Mean Corpuscular Hemoglobin 29 pg (25-35) Mean Corpuscular Hemoglobin Concent 32 g/dL (31-37) Red Cell Distribution Width 17.0 % (11.5-14.5) Platelet Count 293 x10^3/uL (140-400) Neutrophils (%) (Auto) 81 % (31-73) Lymphocytes (%) (Auto) 9 % (24-48) Monocytes (%) (Auto) 8 % (0-9) Eosinophils (%) (Auto) 1 % (0-3) Basophils (%) (Auto) 1 % (0-3) Neutrophils # (Auto) 5.9 x10^3uL (1.8-7.7) Lymphocytes # (Auto) 0.7 x10^3/uL (1.0-4.8) Monocytes # (Auto) 0.6 x10^3/uL (0.0-1.1) Eosinophils # (Auto) 0.1 x10^3/uL (0.0-0.7) Basophils # (Auto) 0.1 x10^3/uL (0.0-0.2) Sodium Level 142 mmol/L (136-145) Potassium Level 6.0 mmol/L (3.5-5.1) Chloride Level 101 mmol/L (98-107) Carbon Dioxide Level 27 mmol/L (21-32) Anion Gap 14 (6-14) Blood Urea Nitrogen 40 mg/dL (7-20) Creatinine 8.6 mg/dL (0.6-1.0) Estimated GFR (Cockcroft-Gault) 5.3 BUN/Creatinine Ratio 5 (6-20) Glucose Level 97 mg/dL (70-99) Lactic Acid Level 2.4 mmol/L (0.4-2.0) Calcium Level 9.7 mg/dL (8.5-10.1) Magnesium Level 2.5 mg/dL (1.8-2.4) Total Bilirubin 0.5 mg/dL (0.2-1.0) Aspartate Amino Transf (AST/SGOT) 33 U/L (15-37) Alanine Aminotransferase (ALT/SGPT) 35 U/L (14-59) Alkaline Phosphatase 133 U/L (46-116) Creatine Kinase 154 U/L (26-192) Creatine Kinase MB (Mass) 2.1 ng/mL (0.0-3.6) Creatine Kinase MB Relative Index 1.4 % (0-4) Troponin I Quantitative 0.574 ng/mL (0.000-0.055) WD-Cqa-O-Type Natriuretic Peptide > 22409 pg/mL (0-449) Total Protein 7.8 g/dL (6.4-8.2) Albumin 3.3 g/dL (3.4-5.0) Albumin/Globulin Ratio 0.7 (1.0-1.7) Lipase 89 U/L (73-393) Laboratory Tests Test 10/24/18 14:02 10/24/18 14:27 10/24/18 15:15 Glucose (Fingerstick) 108 mg/dL (70-99) Prothrombin Time 14.2 SEC (11.7-14.0) Prothromb Time International Ratio 1.1 (0.8-1.1) Activated Partial Thromboplast Time 35 SEC (24-38) White Blood Count 7.3 x10^3/uL (4.0-11.0) Red Blood Count 3.53 x10^6/uL (3.50-5.40) Hemoglobin 10.3 g/dL (12.0-15.5) Hematocrit 32.7 % (36.0-47.0) Mean Corpuscular Volume 93 fL (79-100) Mean Corpuscular Hemoglobin 29 pg (25-35) Mean Corpuscular Hemoglobin Concent 32 g/dL (31-37) Red Cell Distribution Width 17.0 % (11.5-14.5) Platelet Count 293 x10^3/uL (140-400) Neutrophils (%) (Auto) 81 % (31-73) Lymphocytes (%) (Auto) 9 % (24-48) Monocytes (%) (Auto) 8 % (0-9) Eosinophils (%) (Auto) 1 % (0-3) Basophils (%) (Auto) 1 % (0-3) Neutrophils # (Auto) 5.9 x10^3uL (1.8-7.7) Lymphocytes # (Auto) 0.7 x10^3/uL (1.0-4.8) Monocytes # (Auto) 0.6 x10^3/uL (0.0-1.1) Eosinophils # (Auto) 0.1 x10^3/uL (0.0-0.7) Basophils # (Auto) 0.1 x10^3/uL (0.0-0.2) Sodium Level 142 mmol/L (136-145) Potassium Level 6.0 mmol/L (3.5-5.1) Chloride Level 101 mmol/L (98-107) Carbon Dioxide Level 27 mmol/L (21-32) Anion Gap 14 (6-14) Blood Urea Nitrogen 40 mg/dL (7-20) Creatinine 8.6 mg/dL (0.6-1.0) Estimated GFR (Cockcroft-Gault) 5.3 BUN/Creatinine Ratio 5 (6-20) Glucose Level 97 mg/dL (70-99) Lactic Acid Level 2.4 mmol/L (0.4-2.0) Calcium Level 9.7 mg/dL (8.5-10.1) Magnesium Level 2.5 mg/dL (1.8-2.4) Total Bilirubin 0.5 mg/dL (0.2-1.0) Aspartate Amino Transf (AST/SGOT) 33 U/L (15-37) Alanine Aminotransferase (ALT/SGPT) 35 U/L (14-59) Alkaline Phosphatase 133 U/L (46-116) Creatine Kinase 154 U/L (26-192) Creatine Kinase MB (Mass) 2.1 ng/mL (0.0-3.6) Creatine Kinase MB Relative Index 1.4 % (0-4) Troponin I Quantitative 0.574 ng/mL (0.000-0.055) NB-Nit-B-Type Natriuretic Peptide > 01444 pg/mL (0-449) Total Protein 7.8 g/dL (6.4-8.2) Albumin 3.3 g/dL (3.4-5.0) Albumin/Globulin Ratio 0.7 (1.0-1.7) Lipase 89 U/L (73-393) Images Images VELOCITY AND DOPPLER WAVEFORM ANALYSIS RIGHT cm/sec Waveform Severity LEFT cm/sec Waveform Severity dCFA dCFA 113.0 Monophasic Prof Fem Art. Prof Fem Art. 141.0 Monophasic Fem Art Prox. Fem Art Prox. 47.0 Monophasic Fem Art Mid. Fem Art Mid. 60.0 Monophasic Fem Art Dist. Fem Art Dist. 42.0 Monophasic Pop Art(Fossa) Pop Art(AK) 39.0 Monophasic RESIDENTIAL REAL ESTATE SALES MANAGER Prox. RESIDENTIAL REAL ESTATE SALES MANAGER Prox. 51.0 Monophasic RESIDENTIAL REAL ESTATE SALES MANAGER Dist. RESIDENTIAL REAL ESTATE SALES MANAGER Dist. 53.0 Monophasic ZACKARY Prox. ZACKARY Prox. 119.0 Monophasic DPA DPA 35 Monophasic Image Findings Grayscale images of the left lower extremity arterial vessels reveal moderate catheters chronic plaque. Normal velocities are noted in the common femoral and profunda femoris artery. There is moderate diffuse disease involving the SFA and popliteal vessels with diminished flow and monophasic waveforms. The peroneal artery is not visualized. There is monophasic flow in the posterior tibial and dorsalis pedis arteries. Elevated velocities are noted in the anterior tibial artery suggestive of again moderate diffuse 50% stenosis. Critical Notification Critical Value: No <Conclusion> 1. Moderate diffuse disease of the left lower extremity without any focal high- grade stenosis. Signed by : Dora Cotton, Electronically Approved : 11/05/2017 11:42:54 DICTATED and SIGNED BY: DORA COTTON MD DATE: 11/05/17 1142 RIGHT VENTRICLE The right ventricle is normal size. There is normal right ventricular wall thickness. The right ventricular systolic function is normal. ATRIA The left atrium is mildly dilated. The right atrium size is normal. The interatrial septum is intact with no evidence for an atrial septal defect or patent foramen ovale as noted on 2-D or Doppler imaging. AORTIC VALVE The aortic valve is mildly sclerotic. Doppler and Color Flow revealed no significant aortic regurgitation. There is no significant aortic valvular stenosis. MITRAL VALVE The anterior mitral valve leaflet is mildly calcified. Mitral annular calcification is mild. There is no evidence of mitral valve prolapse. There is no mitral valve stenosis. Doppler and Color-flow revealed trace mitral regurgitation. TRICUSPID VALVE The tricuspid valve is normal in structure and function. Doppler and Color Flow revealed trace tricuspid regurgitation. There is no tricuspid valve stenosis. PULMONIC VALVE The pulmonary valve is normal in structure and function. Doppler and Color Flow revealed no pulmonic valvular regurgitation. There is no pulmonic valvular stenosis. GREAT VESSELS The aortic root is normal in size. The IVC is normal in size and collapses >50% with inspiration. PERICARDIAL EFFUSION There is no pleural effusion. There is no evidence of significant pericardial effusion. Critical Notification Critical Value: No <Conclusion> The left ventricle systolic function is normal. The Ejection Fraction is 70%. There is normal LV segmental wall motion. Trace mitral regurgitation. Trace tricuspid regurgitation. There is no evidence of significant pericardial effusion. Signed by : Jack Rivas, Electronically Approved : 11/05/2017 13:01:49 Chest radiograph 10/24/2018 2:31 PM INDICATION: Dyspnea COMPARISON: August 14, 2018 TECHNIQUE: Portable upright frontal view of the chest is provided. FINDINGS: The cardiomediastinal silhouette is enlarged, stable. There is tortuosity of the thoracic aorta with mild calcified atheromatous plaque. There are no pleural effusions. Mild pulmonary vascular congestion. There is no pneumothorax. Bibasilar subsegmental atelectasis is noted. Calcified bilateral hilar lymph nodes are identified. Findings are stable. No significant osseous abnormality is identified. IMPRESSION: Mild pulmonary vascular congestion as may be seen with mild congestive heart failure. There is bibasilar subsegmental atelectasis. Electronically signed by: Eusebia Rose MD (10/24/2018 2:56 PM) [facility] Bilateral Lower Extremity Venous Doppler Ultrasound History: Bilateral lower extremity edema Comparison: None Procedure: Color flow, duplex, spectral analysis and 2D images are obtained with and without compression in the area of the common femoral vein, superficial femoral vein - femoral vein junction, main femoral vein (superficial femoral vein) and popliteal vein. Veins of the proximal calf are also imaged. Findings: There is normal duplex flow, color flow and compressibility of all visualized vein segments. No evidence of deep venous thrombus is present. Impression: No evidence of DVT. Electronically signed by: Solomon Clark III, MD (10/24/2018 4:08 PM) [facility] VTE Prophylaxis Ordered VTE Prophylaxis Devices: Yes VTE Pharmacological Prophylaxi: Yes Assessment/Plan Assessment/Plan impression 1. edema of both lower legs, right sided CHF, Diastolic CHF, Mild pulmonary vascular congestion 2. Elevated troponin i= .57 3. venous us --normal duplex flow, color flow and compressibility of all visualized vein segments. No evidence of deep venous thrombus is present. 4. superficial cellulitis both lower legs 5. ESRD on dialysis 6. hyperkalemia 7. Secondary pulmonary hypertension. 8. anemia 9. PVD 10.morbid obesity 11.possible copd, 12.rt leg chronic wound 13.Moderate diffuse arterial disease of the left lower extremity without any focal high-grade stenosis. 11/05/2017 14 extensive coronary artery calcification by ct 2014 15. DIABETES plan admit consult nephrology, dialysis , manage hyperkalemia cvc admit echo cardiology consult serial troponin i iv rocephin x 1 sq heparin dvt prophylaxis SHAVON Barnett MD Oct 24, 2018 19:03
[2018-10-24] MEDS ORDERED: cefTRIAXone IV Push 1 GM VIAL. IVP ONE (19:30)
--- NOTE | 2018-10-24 19:30 | NUR ---
PT ADMITTED TO ROOM 250 FROM ER. ALERT AND ORIENTED. ASSESSMENT AND HISTORY COMPLETE SEE DOCUMENTATION. ORIENTED TO STAFF, UNIT AND POC, PT VERBALIZED UNDERSTANDING. DENIES PAIN AT THIS TIME. WILL CONT TO MONITOR. PMRN
[2018-10-24] MEDS ORDERED: amLODIPine BESYLATE 10 MG TABLET PO PRN (19:45)
[2018-10-24] MEDS ORDERED: ALBUTEROL SULFATE 2.5 MG/3 ML NEBU. INH PRN (19:45)
[2018-10-24] MEDS ORDERED: cloNIDine HCL 0.2 MG TABLET PO SCH (21:00)
[2018-10-24] MEDS ORDERED: DOXYCYCLINE HYCLATE 100 MG TABLET PO SCH (21:00)
[2018-10-24] MEDS: HEPARIN for SUB-Q USE 5,000 UNIT/ML VIAL. SQ SCH (21:24)
[2018-10-24 23:10] VITALS: BP 113/59
[2018-10-25 03:21] LABS: BASO # 0.1 x10^3/uL (0.0-0.2); BASO % 1 % (0-3); EOS % 0 % (0-3); HEMATOCRIT 31.2 % (36.0-47.0); HEMOGLOBIN 9.9 g/dL (12.0-15.5); LYMPH # 0.9 x10^3/uL (1.0-4.8); LYMPH % 12 % (24-48); MEAN CORPUSCULAR HEMOGLOBIN 29 pg (25-35); MEAN CORPUSCULAR HGB CONC 32 g/dL (31-37); MEAN CORPUSCULAR VOLUME 92 fL (79-100); MONO # 0.7 x10^3/uL (0.0-1.1); MONO % 10 % (0-9); NEUT # 5.9 x10^3uL (1.8-7.7); NEUT % 77 % (31-73); PLATELET COUNT 302 x10^3/uL (140-400); RED CELL DISTRIBUTION WIDTH 17.2 % (11.5-14.5); WHITE BLOOD COUNT 7.6 x10^3/uL (4.0-11.0)
[2018-10-25 03:30] VITALS: BP 116/56
[2018-10-25 03:40] LABS: ALBUMIN 3.2 g/dL (3.4-5.0); CALCIUM 9.6 mg/dL (8.5-10.1); CREATININE 9.6 mg/dL (0.6-1.0); GFR 4.7; PHOSPHORUS 7.3 mg/dL (2.6-4.7); POTASSIUM 5.7 mmol/L (3.5-5.1)
[2018-10-25 03:41] LABS: CHOLESTEROL/HDL RATIO 2.8
[2018-10-25] MEDS: HEPARIN for SUB-Q USE 5,000 UNIT/ML VIAL. SQ SCH (05:46)
[2018-10-25 07:00] VITALS: BP 120/58
[2018-10-25] MEDS: CALCIUM ACETATE 667 MG CAPSULE PO SCH ×3 (08:00→17:00)
[2018-10-25] MEDS: INSULIN LISPRO 300 UNITS/3 ML INSULN.PEN. SQ SCH ×3 (08:00→17:00)
[2018-10-25] MEDS: ASPIRIN ENTERIC COATED 81 MG TABLET.DR. PO SCH (09:00)
--- NOTE | 2018-10-25 09:37 | PDOC2 ---
NICHOL PINEDA HYDROELECTRIC POWERPLANT SUPERVISOR 10/25/18 0937: CARDIAC CONSULT DATE OF CONSULT Date of Consult DATE: 10/25/18 TIME: 09:29 REASON FOR CONSULT Reason for Consult: CHF exac REFERRING PHYSICIAN Referring Physician: Fullbright SOURCE Source: Chart review, Patient HISTORY OF PRESENT ILLNESS HISTORY OF PRESENT ILLNESS This is an 88 yo AA female admitted for complains of leg pain and bilateral LE swelling more to right. She is known for PAD but moderate disease in the past. Also when has some slow healing minute wounds to her RLE. To add she has been having exertional CP and CARRERA in the last 2 weeks. No nausea, jaw or arm discomfort. She see Dr. Pacheco and it appears that arteriogram and cardiac cath have been introduced in the past by her clinicians but she and her family are very hesitant about these intervention due to resulting in family memebers who had this done in the past. Presently she is CP free and no pain on leg unless touched, no oozing wounds. Tolerating start of dialysis. PAST MEDICAL HISTORY Cardiovascular: CAD, HTN, Hyperlipidemia, Other (bradycardia; lymphedema; PAD) Pulmonary: Pulmonary embolus Musculoskeletal: Osteoarthritis Renal/: Chronic renal failure Endocrine: Diabetes (2) PAST SURGICAL HISTORY Past Surgical History: Other (LAV fistula dialysis, oopherectomy) FAMILY HISTORY Family History: Family History Unknown SOCIAL HISTORY Smoke: No ALCOHOL: none Drugs: None Lives: with Family CURRENT MEDICATIONS CURRENT MEDICATIONS Current Medications Medications (Trade) Dose Ordered Sig/Virgil Route PRN Reason Start Time Stop Time Status Last Admin Dose Admin Aspirin (Margie Aspirin) 325 mg 1X ONCE PO 10/24/18 14:45 10/24/18 14:46 DC 10/24/18 14:51 Fentanyl Citrate (Fentanyl 2ml Vial) 50 mcg 1X ONCE IV 10/24/18 15:00 10/24/18 15:01 DC 10/24/18 16:34 Bumetanide (Bumex) 1 mg 1X ONCE IV 10/24/18 16:19 10/24/18 16:20 DC 10/24/18 16:35 Calcium Gluconate (Calcium Gluconate) 1,000 mg 1X ONCE IVP 10/24/18 16:15 10/24/18 16:19 DC 10/24/18 16:34 Insulin Human Regular (HumuLIN R VIAL) 10 unit 1X ONCE IV 10/24/18 16:15 2/3/19 16:19 DC 10/24/18 16:36 Dextrose (Dextrose 50%-Water Syringe) 25 gm 1X ONCE IV 10/24/18 16:15 10/24/18 16:19 DC 10/24/18 16:35 Nitroglycerin (Nitro-Bid Oint) 1 inch 1X ONCE TP 10/24/18 17:15 10/24/18 17:16 DC 10/24/18 17:15 Sodium Polystyrene Sulfonate (Kayexalate) 30 gm 1X ONCE PO 10/24/18 17:15 10/24/18 17:16 DC 10/24/18 17:16 Dextrose (Dextrose 50%-Water Syringe) 25 gm 1X ONCE IV 10/24/18 18:00 10/24/18 18:04 DC 10/24/18 18:02 Hydralazine HCl (Apresoline Inj) 20 mg 1X ONCE IVP 10/24/18 18:15 10/24/18 18:16 DC 10/24/18 18:09 Ceftriaxone Sodium (Rocephin) 1 gm 1X ONCE IVP 10/24/18 19:30 10/24/18 19:31 DC 10/24/18 20:22 Heparin Sodium (Porcine) (Heparin Sodium) 5,000 unit Q8HRS SQ 10/24/18 22:00 10/25/18 05:46 ALLERGIES ALLERGIES: Coded Allergies: No Known Drug Allergies (Unverified , 07/14/17) ROS Review of System 14 point ROS evaluated with pertinent positives noted per HPI PHYSICAL EXAM General: Alert, Oriented X3, Cooperative, No acute distress HEENT: Atraumatic, Mucous membr. moist/pink Lungs: Other (diminished bases) Abdomen: Soft, No tenderness Extremities: Other (diminished pedal pulses, leg edema 2+ bilateral LE with tenderness, scabbed over wounds to RLE no oozing) Neuro: Normal speech, Sensation intact Psych/Mental Status: Mood NL MUSCULOSKELETAL: Osteoarthritic changes both hands VITALS VITALS Vital Signs Date Time Temp Pulse Resp B/P (MAP) Pulse Ox O2 Delivery O2 Flow Rate FiO2 10/25/18 07:00 98.6 88 20 120/58 (78) 95 Room Air 98.6 LABS Lab: Laboratory Tests Test 10/24/18 14:02 10/24/18 14:27 10/24/18 15:15 10/24/18 17:57 Glucose (Fingerstick) 108 mg/dL (70-99) 28 mg/dL (70-99) Prothrombin Time 14.2 SEC (11.7-14.0) Prothromb Time International Ratio 1.1 (0.8-1.1) Activated Partial Thromboplast Time 35 SEC (24-38) White Blood Count 7.3 x10^3/uL (4.0-11.0) Red Blood Count 3.53 x10^6/uL (3.50-5.40) Hemoglobin 10.3 g/dL (12.0-15.5) Hematocrit 32.7 % (36.0-47.0) Mean Corpuscular Volume 93 fL (79-100) Mean Corpuscular Hemoglobin 29 pg (25-35) Mean Corpuscular Hemoglobin Concent 32 g/dL (31-37) Red Cell Distribution Width 17.0 % (11.5-14.5) Platelet Count 293 x10^3/uL (140-400) Neutrophils (%) (Auto) 81 % (31-73) Lymphocytes (%) (Auto) 9 % (24-48) Monocytes (%) (Auto) 8 % (0-9) Eosinophils (%) (Auto) 1 % (0-3) Basophils (%) (Auto) 1 % (0-3) Neutrophils # (Auto) 5.9 x10^3uL (1.8-7.7) Lymphocytes # (Auto) 0.7 x10^3/uL (1.0-4.8) Monocytes # (Auto) 0.6 x10^3/uL (0.0-1.1) Eosinophils # (Auto) 0.1 x10^3/uL (0.0-0.7) Basophils # (Auto) 0.1 x10^3/uL (0.0-0.2) Sodium Level 142 mmol/L (136-145) Potassium Level 6.0 mmol/L (3.5-5.1) Chloride Level 101 mmol/L (98-107) Carbon Dioxide Level 27 mmol/L (21-32) Anion Gap 14 (6-14) Blood Urea Nitrogen 40 mg/dL (7-20) Creatinine 8.6 mg/dL (0.6-1.0) Estimated GFR (Cockcroft-Gault) 5.3 BUN/Creatinine Ratio 5 (6-20) Glucose Level 97 mg/dL (70-99) Lactic Acid Level 2.4 mmol/L (0.4-2.0) Calcium Level 9.7 mg/dL (8.5-10.1) Magnesium Level 2.5 mg/dL (1.8-2.4) Total Bilirubin 0.5 mg/dL (0.2-1.0) Aspartate Amino Transf (AST/SGOT) 33 U/L (15-37) Alanine Aminotransferase (ALT/SGPT) 35 U/L (14-59) Alkaline Phosphatase 133 U/L (46-116) Creatine Kinase 154 U/L (26-192) Creatine Kinase MB (Mass) 2.1 ng/mL (0.0-3.6) Creatine Kinase MB Relative Index 1.4 % (0-4) Troponin I Quantitative 0.574 ng/mL (0.000-0.055) FH-Izs-E-Type Natriuretic Peptide > 89409 pg/mL (0-449) Total Protein 7.8 g/dL (6.4-8.2) Albumin 3.3 g/dL (3.4-5.0) Albumin/Globulin Ratio 0.7 (1.0-1.7) Lipase 89 U/L (73-393) Test 10/24/18 18:25 10/24/18 20:20 10/24/18 20:22 10/24/18 23:00 Glucose (Fingerstick) 77 mg/dL (70-99) 104 mg/dL (70-99) Troponin I Quantitative 0.475 ng/mL (0.000-0.055) Lactic Acid Level 2.1 mmol/L (0.4-2.0) Test 10/25/18 03:00 10/25/18 08:08 White Blood Count 7.6 x10^3/uL (4.0-11.0) Red Blood Count 3.40 x10^6/uL (3.50-5.40) Hemoglobin 9.9 g/dL (12.0-15.5) Hematocrit 31.2 % (36.0-47.0) Mean Corpuscular Volume 92 fL (79-100) Mean Corpuscular Hemoglobin 29 pg (25-35) Mean Corpuscular Hemoglobin Concent 32 g/dL (31-37) Red Cell Distribution Width 17.2 % (11.5-14.5) Platelet Count 302 x10^3/uL (140-400) Neutrophils (%) (Auto) 77 % (31-73) Lymphocytes (%) (Auto) 12 % (24-48) Monocytes (%) (Auto) 10 % (0-9) Eosinophils (%) (Auto) 0 % (0-3) Basophils (%) (Auto) 1 % (0-3) Neutrophils # (Auto) 5.9 x10^3uL (1.8-7.7) Lymphocytes # (Auto) 0.9 x10^3/uL (1.0-4.8) Monocytes # (Auto) 0.7 x10^3/uL (0.0-1.1) Eosinophils # (Auto) 0.0 x10^3/uL (0.0-0.7) Basophils # (Auto) 0.1 x10^3/uL (0.0-0.2) Sodium Level 143 mmol/L (136-145) Potassium Level 5.7 mmol/L (3.5-5.1) Chloride Level 100 mmol/L (98-107) Carbon Dioxide Level 29 mmol/L (21-32) Anion Gap 14 (6-14) Blood Urea Nitrogen 43 mg/dL (7-20) Creatinine 9.6 mg/dL (0.6-1.0) Estimated GFR (Cockcroft-Gault) 4.7 Glucose Level 99 mg/dL (70-99) Lactic Acid Level 1.8 mmol/L (0.4-2.0) Calcium Level 9.6 mg/dL (8.5-10.1) Phosphorus Level 7.3 mg/dL (2.6-4.7) Troponin I Quantitative 1.128 ng/mL (0.000-0.055) Albumin 3.2 g/dL (3.4-5.0) Triglycerides Level 65 mg/dL (0-150) Cholesterol Level 166 mg/dL (0-200) LDL Cholesterol, Calculated 94 mg/dL (0-100) VLDL Cholesterol, Calculated 13 mg/dL (0-40) Non-HDL Cholesterol Calculated 107 mg/dL (0-129) HDL Cholesterol 59 mg/dL (40-60) Cholesterol/HDL Ratio 2.8 Glucose (Fingerstick) 77 mg/dL (70-99) ECHOCARDIOGRAM ECHOCARDIOGRAM <Conclusion> The left ventricle systolic function is normal. The Ejection Fraction is 70%. There is normal LV segmental wall motion. Trace mitral regurgitation. Trace tricuspid regurgitation. There is no evidence of significant pericardial effusion. DATE: 11/05/17 1301 ASSESSMENT/PLAN ASSESSMENT/PLAN 1. NSTEMI: Trop 1.1, EKG with subtle anterolateral ST depression 2. ESRD 3. Mild Acute on chronic diastolic CHF 4. CAD: coronary calcifications per CT 2016 5. DM2 with hypoglycemic episode 6. Anemia on chronic disease 7. LE cellulitis/PAD 8. HTN: controlled Recommendations 1. TTE 2. Discussed with grand daughter "Kirstie" in regards to the needs of femoral arteriogram and coronary arteriogram and at this time quite hesitant to doing it including pt. Family would like to talk it over. Will discuss with primary sander operator. 3. Start on heparin per protocol. ASA. Potential arteriogram tomorrow pending pt and family decision. 4. Secondary prevention measures as tolerated. 5. Fluid off loading per HD MADDY LERMA MD 10/25/18 1537: CARDIAC CONSULT ASSESSMENT/PLAN ASSESSMENT/PLAN Patient seen and examined. Agree with COMMERCIAL DRIVER'S LICENSE DRIVER's assessment and plan. Agree with cardiac catheterization to further evaluate patient's non-STEMI but family would like to think about it Continue fluid removal with hemodialysis for acute on chronic diastolic heart failure Check 2-D echo to assess LV systolic function Thank you for your consultation NICHOL PINEDA APRN Oct 25, 2018 09:37 MADDY LERMA MD Oct 25, 2018 15:37
[2018-10-25] MEDS ORDERED: HEPARIN 25,000UTS/500ML PREMIX 500 ML IV PRN ×2 (10:15→10:30)
[2018-10-25] MEDS ORDERED: IV NORMAL SALINE 1000ML BAG 1,000 ML IV PRN ×2 (10:19)
[2018-10-25] MEDS ORDERED: HEPARIN for IV BOLUS 10,000 UNIT/10 ML VIAL. IV PRN (10:30)
[2018-10-25] MEDS ORDERED: ASPIRIN ENTERIC COATED 325 MG TABLET.DR. PO ONE (10:30)
[2018-10-25] MEDS ORDERED: DIALYSIS PATIENT. MC PRN (10:30)
--- NOTE | 2018-10-25 11:11 | PDOC ---
PROGRESS NOTES Chief Complaint Chief Complaint Edema of both lower legs, right sided CHF, Diastolic CHF, Mild pulmonary vascular congestion Elevated troponin i= .57 Superficial cellulitis both lower legs ESRD on dialysis Hyperkalemia Secondary pulmonary hypertension Anemia PVD Morbid obesity COPD Rt leg chronic wound Moderate diffuse arterial disease of the left lower extremity without any focal high-grade stenosis. 11/05/2017 Extensive coronary artery calcification by ct 2014 DIABETES History of Present Illness History of Present Illness 88 yr old AA female admitted with bilateral leg edema, superficial wounds both legs, elevated troponin i, hyperkalemia, known ESRD on dialysis, cxr c/w acute CHF. Hypoglycemic overnight, corrected. Potassium 6 corrected to 5.7. RLE pain today exquisite to even light touch. She still c/o some SOB and non-productive cough. Troponin over 1 today now. Denies chest pain. Seen on dialysis A/P: NSTEMI - with elevation in Trop 1.1, ST depressions, start heparin GTT, consult cardiology Hyperkalemia - K 6, to dialysis today. Labs daily Right leg pain - historically with known PVD in left leg. Was going to see vascular surgery later this week, daughter brought her to ED for evaluation more urgently. Cardiology to evaluate at this time. She refused to have CT angiography yesterday ESRD - HD today Acute on chronic diastolic CHF - UF per nephrology at dialysis today DM2 with hypoglycemic episode - adjust insulin Anemia - of chronic renal disease. monitor FEN - Renal diet PPX - heparin gtt FULL CODE Inpatient for NSTEMI, PVD, hyperkalemia Vitals Vitals Vital Signs Date Time Temp Pulse Resp B/P (MAP) Pulse Ox O2 Delivery O2 Flow Rate FiO2 10/25/18 10:47 20 98 Room Air 10/25/18 07:00 98.6 88 120/58 (78) 98.6 Physical Exam General: Alert, Oriented X3, Cooperative, mild distress Lungs: Crackles Abdomen: Normal bowel sounds, Soft Extremities: No cyanosis Skin: Other (cellulitis both lower legs r> l) Labs LABS Laboratory Tests Test 10/24/18 14:02 10/24/18 14:27 10/24/18 15:15 10/24/18 17:57 Glucose (Fingerstick) 108 mg/dL (70-99) 28 mg/dL (70-99) Prothrombin Time 14.2 SEC (11.7-14.0) Prothromb Time International Ratio 1.1 (0.8-1.1) Activated Partial Thromboplast Time 35 SEC (24-38) White Blood Count 7.3 x10^3/uL (4.0-11.0) Red Blood Count 3.53 x10^6/uL (3.50-5.40) Hemoglobin 10.3 g/dL (12.0-15.5) Hematocrit 32.7 % (36.0-47.0) Mean Corpuscular Volume 93 fL (79-100) Mean Corpuscular Hemoglobin 29 pg (25-35) Mean Corpuscular Hemoglobin Concent 32 g/dL (31-37) Red Cell Distribution Width 17.0 % (11.5-14.5) Platelet Count 293 x10^3/uL (140-400) Neutrophils (%) (Auto) 81 % (31-73) Lymphocytes (%) (Auto) 9 % (24-48) Monocytes (%) (Auto) 8 % (0-9) Eosinophils (%) (Auto) 1 % (0-3) Basophils (%) (Auto) 1 % (0-3) Neutrophils # (Auto) 5.9 x10^3uL (1.8-7.7) Lymphocytes # (Auto) 0.7 x10^3/uL (1.0-4.8) Monocytes # (Auto) 0.6 x10^3/uL (0.0-1.1) Eosinophils # (Auto) 0.1 x10^3/uL (0.0-0.7) Basophils # (Auto) 0.1 x10^3/uL (0.0-0.2) Sodium Level 142 mmol/L (136-145) Potassium Level 6.0 mmol/L (3.5-5.1) Chloride Level 101 mmol/L (98-107) Carbon Dioxide Level 27 mmol/L (21-32) Anion Gap 14 (6-14) Blood Urea Nitrogen 40 mg/dL (7-20) Creatinine 8.6 mg/dL (0.6-1.0) Estimated GFR (Cockcroft-Gault) 5.3 BUN/Creatinine Ratio 5 (6-20) Glucose Level 97 mg/dL (70-99) Lactic Acid Level 2.4 mmol/L (0.4-2.0) Calcium Level 9.7 mg/dL (8.5-10.1) Magnesium Level 2.5 mg/dL (1.8-2.4) Total Bilirubin 0.5 mg/dL (0.2-1.0) Aspartate Amino Transf (AST/SGOT) 33 U/L (15-37) Alanine Aminotransferase (ALT/SGPT) 35 U/L (14-59) Alkaline Phosphatase 133 U/L (46-116) Creatine Kinase 154 U/L (26-192) Creatine Kinase MB (Mass) 2.1 ng/mL (0.0-3.6) Creatine Kinase MB Relative Index 1.4 % (0-4) Troponin I Quantitative 0.574 ng/mL (0.000-0.055) HK-Llx-V-Type Natriuretic Peptide > 30989 pg/mL (0-449) Total Protein 7.8 g/dL (6.4-8.2) Albumin 3.3 g/dL (3.4-5.0) Albumin/Globulin Ratio 0.7 (1.0-1.7) Lipase 89 U/L (73-393) Test 10/24/18 18:25 10/24/18 20:20 10/24/18 20:22 10/24/18 23:00 Glucose (Fingerstick) 77 mg/dL (70-99) 104 mg/dL (70-99) Troponin I Quantitative 0.475 ng/mL (0.000-0.055) Lactic Acid Level 2.1 mmol/L (0.4-2.0) Test 10/25/18 03:00 10/25/18 08:08 White Blood Count 7.6 x10^3/uL (4.0-11.0) Red Blood Count 3.40 x10^6/uL (3.50-5.40) Hemoglobin 9.9 g/dL (12.0-15.5) Hematocrit 31.2 % (36.0-47.0) Mean Corpuscular Volume 92 fL (79-100) Mean Corpuscular Hemoglobin 29 pg (25-35) Mean Corpuscular Hemoglobin Concent 32 g/dL (31-37) Red Cell Distribution Width 17.2 % (11.5-14.5) Platelet Count 302 x10^3/uL (140-400) Neutrophils (%) (Auto) 77 % (31-73) Lymphocytes (%) (Auto) 12 % (24-48) Monocytes (%) (Auto) 10 % (0-9) Eosinophils (%) (Auto) 0 % (0-3) Basophils (%) (Auto) 1 % (0-3) Neutrophils # (Auto) 5.9 x10^3uL (1.8-7.7) Lymphocytes # (Auto) 0.9 x10^3/uL (1.0-4.8) Monocytes # (Auto) 0.7 x10^3/uL (0.0-1.1) Eosinophils # (Auto) 0.0 x10^3/uL (0.0-0.7) Basophils # (Auto) 0.1 x10^3/uL (0.0-0.2) Sodium Level 143 mmol/L (136-145) Potassium Level 5.7 mmol/L (3.5-5.1) Chloride Level 100 mmol/L (98-107) Carbon Dioxide Level 29 mmol/L (21-32) Anion Gap 14 (6-14) Blood Urea Nitrogen 43 mg/dL (7-20) Creatinine 9.6 mg/dL (0.6-1.0) Estimated GFR (Cockcroft-Gault) 4.7 Glucose Level 99 mg/dL (70-99) Lactic Acid Level 1.8 mmol/L (0.4-2.0) Calcium Level 9.6 mg/dL (8.5-10.1) Phosphorus Level 7.3 mg/dL (2.6-4.7) Troponin I Quantitative 1.128 ng/mL (0.000-0.055) Albumin 3.2 g/dL (3.4-5.0) Triglycerides Level 65 mg/dL (0-150) Cholesterol Level 166 mg/dL (0-200) LDL Cholesterol, Calculated 94 mg/dL (0-100) VLDL Cholesterol, Calculated 13 mg/dL (0-40) Non-HDL Cholesterol Calculated 107 mg/dL (0-129) HDL Cholesterol 59 mg/dL (40-60) Cholesterol/HDL Ratio 2.8 Glucose (Fingerstick) 77 mg/dL (70-99) Assessment and Plan Assessmemt and Plan Problems Medical Problems: (1) Hyperkalemia Status: Acute Comment Review of Relevant I have reviewed the following items vicente (where applicable) has been applied. Labs Laboratory Tests Test 10/24/18 14:02 10/24/18 14:27 10/24/18 15:15 10/24/18 17:57 Glucose (Fingerstick) 108 mg/dL (70-99) 28 mg/dL (70-99) Prothrombin Time 14.2 SEC (11.7-14.0) Prothromb Time International Ratio 1.1 (0.8-1.1) Activated Partial Thromboplast Time 35 SEC (24-38) White Blood Count 7.3 x10^3/uL (4.0-11.0) Red Blood Count 3.53 x10^6/uL (3.50-5.40) Hemoglobin 10.3 g/dL (12.0-15.5) Hematocrit 32.7 % (36.0-47.0) Mean Corpuscular Volume 93 fL (79-100) Mean Corpuscular Hemoglobin 29 pg (25-35) Mean Corpuscular Hemoglobin Concent 32 g/dL (31-37) Red Cell Distribution Width 17.0 % (11.5-14.5) Platelet Count 293 x10^3/uL (140-400) Neutrophils (%) (Auto) 81 % (31-73) Lymphocytes (%) (Auto) 9 % (24-48) Monocytes (%) (Auto) 8 % (0-9) Eosinophils (%) (Auto) 1 % (0-3) Basophils (%) (Auto) 1 % (0-3) Neutrophils # (Auto) 5.9 x10^3uL (1.8-7.7) Lymphocytes # (Auto) 0.7 x10^3/uL (1.0-4.8) Monocytes # (Auto) 0.6 x10^3/uL (0.0-1.1) Eosinophils # (Auto) 0.1 x10^3/uL (0.0-0.7) Basophils # (Auto) 0.1 x10^3/uL (0.0-0.2) Sodium Level 142 mmol/L (136-145) Potassium Level 6.0 mmol/L (3.5-5.1) Chloride Level 101 mmol/L (98-107) Carbon Dioxide Level 27 mmol/L (21-32) Anion Gap 14 (6-14) Blood Urea Nitrogen 40 mg/dL (7-20) Creatinine 8.6 mg/dL (0.6-1.0) Estimated GFR (Cockcroft-Gault) 5.3 BUN/Creatinine Ratio 5 (6-20) Glucose Level 97 mg/dL (70-99) Lactic Acid Level 2.4 mmol/L (0.4-2.0) Calcium Level 9.7 mg/dL (8.5-10.1) Magnesium Level 2.5 mg/dL (1.8-2.4) Total Bilirubin 0.5 mg/dL (0.2-1.0) Aspartate Amino Transf (AST/SGOT) 33 U/L (15-37) Alanine Aminotransferase (ALT/SGPT) 35 U/L (14-59) Alkaline Phosphatase 133 U/L (46-116) Creatine Kinase 154 U/L (26-192) Creatine Kinase MB (Mass) 2.1 ng/mL (0.0-3.6) Creatine Kinase MB Relative Index 1.4 % (0-4) Troponin I Quantitative 0.574 ng/mL (0.000-0.055) WW-Bqf-H-Type Natriuretic Peptide > 55382 pg/mL (0-449) Total Protein 7.8 g/dL (6.4-8.2) Albumin 3.3 g/dL (3.4-5.0) Albumin/Globulin Ratio 0.7 (1.0-1.7) Lipase 89 U/L (73-393) Test 10/24/18 18:25 10/24/18 20:20 10/24/18 20:22 10/24/18 23:00 Glucose (Fingerstick) 77 mg/dL (70-99) 104 mg/dL (70-99) Troponin I Quantitative 0.475 ng/mL (0.000-0.055) Lactic Acid Level 2.1 mmol/L (0.4-2.0) Test 10/25/18 03:00 10/25/18 08:08 White Blood Count 7.6 x10^3/uL (4.0-11.0) Red Blood Count 3.40 x10^6/uL (3.50-5.40) Hemoglobin 9.9 g/dL (12.0-15.5) Hematocrit 31.2 % (36.0-47.0) Mean Corpuscular Volume 92 fL (79-100) Mean Corpuscular Hemoglobin 29 pg (25-35) Mean Corpuscular Hemoglobin Concent 32 g/dL (31-37) Red Cell Distribution Width 17.2 % (11.5-14.5) Platelet Count 302 x10^3/uL (140-400) Neutrophils (%) (Auto) 77 % (31-73) Lymphocytes (%) (Auto) 12 % (24-48) Monocytes (%) (Auto) 10 % (0-9) Eosinophils (%) (Auto) 0 % (0-3) Basophils (%) (Auto) 1 % (0-3) Neutrophils # (Auto) 5.9 x10^3uL (1.8-7.7) Lymphocytes # (Auto) 0.9 x10^3/uL (1.0-4.8) Monocytes # (Auto) 0.7 x10^3/uL (0.0-1.1) Eosinophils # (Auto) 0.0 x10^3/uL (0.0-0.7) Basophils # (Auto) 0.1 x10^3/uL (0.0-0.2) Sodium Level 143 mmol/L (136-145) Potassium Level 5.7 mmol/L (3.5-5.1) Chloride Level 100 mmol/L (98-107) Carbon Dioxide Level 29 mmol/L (21-32) Anion Gap 14 (6-14) Blood Urea Nitrogen 43 mg/dL (7-20) Creatinine 9.6 mg/dL (0.6-1.0) Estimated GFR (Cockcroft-Gault) 4.7 Glucose Level 99 mg/dL (70-99) Lactic Acid Level 1.8 mmol/L (0.4-2.0) Calcium Level 9.6 mg/dL (8.5-10.1) Phosphorus Level 7.3 mg/dL (2.6-4.7) Troponin I Quantitative 1.128 ng/mL (0.000-0.055) Albumin 3.2 g/dL (3.4-5.0) Triglycerides Level 65 mg/dL (0-150) Cholesterol Level 166 mg/dL (0-200) LDL Cholesterol, Calculated 94 mg/dL (0-100) VLDL Cholesterol, Calculated 13 mg/dL (0-40) Non-HDL Cholesterol Calculated 107 mg/dL (0-129) HDL Cholesterol 59 mg/dL (40-60) Cholesterol/HDL Ratio 2.8 Glucose (Fingerstick) 77 mg/dL (70-99) Laboratory Tests Test 10/24/18 14:02 10/24/18 14:27 10/24/18 15:15 10/24/18 17:57 Glucose (Fingerstick) 108 mg/dL (70-99) 28 mg/dL (70-99) Prothrombin Time 14.2 SEC (11.7-14.0) Prothromb Time International Ratio 1.1 (0.8-1.1) Activated Partial Thromboplast Time 35 SEC (24-38) White Blood Count 7.3 x10^3/uL (4.0-11.0) Red Blood Count 3.53 x10^6/uL (3.50-5.40) Hemoglobin 10.3 g/dL (12.0-15.5) Hematocrit 32.7 % (36.0-47.0) Mean Corpuscular Volume 93 fL (79-100) Mean Corpuscular Hemoglobin 29 pg (25-35) Mean Corpuscular Hemoglobin Concent 32 g/dL (31-37) Red Cell Distribution Width 17.0 % (11.5-14.5) Platelet Count 293 x10^3/uL (140-400) Neutrophils (%) (Auto) 81 % (31-73) Lymphocytes (%) (Auto) 9 % (24-48) Monocytes (%) (Auto) 8 % (0-9) Eosinophils (%) (Auto) 1 % (0-3) Basophils (%) (Auto) 1 % (0-3) Neutrophils # (Auto) 5.9 x10^3uL (1.8-7.7) Lymphocytes # (Auto) 0.7 x10^3/uL (1.0-4.8) Monocytes # (Auto) 0.6 x10^3/uL (0.0-1.1) Eosinophils # (Auto) 0.1 x10^3/uL (0.0-0.7) Basophils # (Auto) 0.1 x10^3/uL (0.0-0.2) Sodium Level 142 mmol/L (136-145) Potassium Level 6.0 mmol/L (3.5-5.1) Chloride Level 101 mmol/L (98-107) Carbon Dioxide Level 27 mmol/L (21-32) Anion Gap 14 (6-14) Blood Urea Nitrogen 40 mg/dL (7-20) Creatinine 8.6 mg/dL (0.6-1.0) Estimated GFR (Cockcroft-Gault) 5.3 BUN/Creatinine Ratio 5 (6-20) Glucose Level 97 mg/dL (70-99) Lactic Acid Level 2.4 mmol/L (0.4-2.0) Calcium Level 9.7 mg/dL (8.5-10.1) Magnesium Level 2.5 mg/dL (1.8-2.4) Total Bilirubin 0.5 mg/dL (0.2-1.0) Aspartate Amino Transf (AST/SGOT) 33 U/L (15-37) Alanine Aminotransferase (ALT/SGPT) 35 U/L (14-59) Alkaline Phosphatase 133 U/L (46-116) Creatine Kinase 154 U/L (26-192) Creatine Kinase MB (Mass) 2.1 ng/mL (0.0-3.6) Creatine Kinase MB Relative Index 1.4 % (0-4) Troponin I Quantitative 0.574 ng/mL (0.000-0.055) MH-Olc-M-Type Natriuretic Peptide > 84883 pg/mL (0-449) Total Protein 7.8 g/dL (6.4-8.2) Albumin 3.3 g/dL (3.4-5.0) Albumin/Globulin Ratio 0.7 (1.0-1.7) Lipase 89 U/L (73-393) Test 10/24/18 18:25 10/24/18 20:20 10/24/18 20:22 10/24/18 23:00 Glucose (Fingerstick) 77 mg/dL (70-99) 104 mg/dL (70-99) Troponin I Quantitative 0.475 ng/mL (0.000-0.055) Lactic Acid Level 2.1 mmol/L (0.4-2.0) Test 10/25/18 03:00 10/25/18 08:08 White Blood Count 7.6 x10^3/uL (4.0-11.0) Red Blood Count 3.40 x10^6/uL (3.50-5.40) Hemoglobin 9.9 g/dL (12.0-15.5) Hematocrit 31.2 % (36.0-47.0) Mean Corpuscular Volume 92 fL (79-100) Mean Corpuscular Hemoglobin 29 pg (25-35) Mean Corpuscular Hemoglobin Concent 32 g/dL (31-37) Red Cell Distribution Width 17.2 % (11.5-14.5) Platelet Count 302 x10^3/uL (140-400) Neutrophils (%) (Auto) 77 % (31-73) Lymphocytes (%) (Auto) 12 % (24-48) Monocytes (%) (Auto) 10 % (0-9) Eosinophils (%) (Auto) 0 % (0-3) Basophils (%) (Auto) 1 % (0-3) Neutrophils # (Auto) 5.9 x10^3uL (1.8-7.7) Lymphocytes # (Auto) 0.9 x10^3/uL (1.0-4.8) Monocytes # (Auto) 0.7 x10^3/uL (0.0-1.1) Eosinophils # (Auto) 0.0 x10^3/uL (0.0-0.7) Basophils # (Auto) 0.1 x10^3/uL (0.0-0.2) Sodium Level 143 mmol/L (136-145) Potassium Level 5.7 mmol/L (3.5-5.1) Chloride Level 100 mmol/L (98-107) Carbon Dioxide Level 29 mmol/L (21-32) Anion Gap 14 (6-14) Blood Urea Nitrogen 43 mg/dL (7-20) Creatinine 9.6 mg/dL (0.6-1.0) Estimated GFR (Cockcroft-Gault) 4.7 Glucose Level 99 mg/dL (70-99) Lactic Acid Level 1.8 mmol/L (0.4-2.0) Calcium Level 9.6 mg/dL (8.5-10.1) Phosphorus Level 7.3 mg/dL (2.6-4.7) Troponin I Quantitative 1.128 ng/mL (0.000-0.055) Albumin 3.2 g/dL (3.4-5.0) Triglycerides Level 65 mg/dL (0-150) Cholesterol Level 166 mg/dL (0-200) LDL Cholesterol, Calculated 94 mg/dL (0-100) VLDL Cholesterol, Calculated 13 mg/dL (0-40) Non-HDL Cholesterol Calculated 107 mg/dL (0-129) HDL Cholesterol 59 mg/dL (40-60) Cholesterol/HDL Ratio 2.8 Glucose (Fingerstick) 77 mg/dL (70-99) Medications Current Medications Aspirin (Margie Aspirin) 325 mg 1X ONCE PO Last administered on 10/24/18 14:51 ; Start 10/24/18 at 14:45; Stop 10/24/18 at 14:46; Status DC Fentanyl Citrate (Fentanyl 2ml Vial) 50 mcg 1X ONCE IV Last administered on 16:34; Start 10/24/18 at 15:00; Stop 10/24/18 at 15:01; Status DC Bumetanide (Bumex) 1 mg 1X ONCE IV Last administered on 10/24/18at 16:35; Start 10/24/18 at 16:19; Stop 10/24/18 at 16:20; Status DC Calcium Gluconate (Calcium Gluconate) 1,000 mg 1X ONCE IVP Last administered on 10/24/18 16:34; Start 10/24/18 at 16:15; Stop 10/24/18 at 16:19; Status DC Insulin Human Regular (HumuLIN R VIAL) 10 unit 1X ONCE IV Last administered on 10/24/18at 16:36; Start 10/24/18 at 16:15; Stop 10/24/18 at 16:19; Status DC Dextrose (Dextrose 50%-Water Syringe) 25 gm 1X ONCE IV Last administered on 10/24/18at 16:35; Start 10/24/18 at 16:15; Stop 10/24/18 at 16:19; Status DC Nitroglycerin (Nitro-Bid Oint) 1 inch 1X ONCE TP Last administered on 17:15; Start 10/24/18 at 17:15; Stop 10/24/18 at 17:16; Status DC Sodium Polystyrene Sulfonate (Kayexalate) 30 gm 1X ONCE PO Last administered on 10/24/18at 17:16; Start 10/24/18 at 17:15; Stop 10/24/18 at 17:16; Status DC Ondansetron HCl (Zofran) 4 mg PRN Q8HRS PRN IV NAUSEA/VOMITING; Start 10/24/18 at 17:15; Stop 10/25/18 at 17:14 Fentanyl Citrate (Fentanyl 2ml Vial) 50 mcg Q2HR PRN IV PAIN Last administered on 10/25/18at 10:47; Start 10/24/18 at 17:15; Stop 10/25/18 at 17:14 Insulin Human Lispro (HumaLOG) 0-5 UNITS TIDWMEALS SQ ; Start 10/25/18 at 08:00 Dextrose (Dextrose 50%-Water Syringe) 12.5 gm PRN Q15MIN PRN IV SEE COMMENTS; Start 10/24/18 at 17:30 Dextrose (Dextrose 50%-Water Syringe) 25 gm 1X ONCE IV Last administered on 10/24/18at 18:02; Start 10/24/18 at 18:00; Stop 10/24/18 at 18:04; Status DC Hydralazine HCl (Apresoline Inj) 20 mg 1X ONCE IVP Last administered on at 18:09; Start 10/24/18 at 18:15; Stop 10/24/18 at 18:16; Status DC Ceftriaxone Sodium (Rocephin) 1 gm 1X ONCE IVP Last administered on 10/24/18at 20:22; Start 10/24/18 at 19:30; Stop 10/24/18 at 19:31; Status DC Heparin Sodium (Porcine) (Heparin Sodium) 5,000 unit Q8HRS SQ Last administered on 10/25/18at 05:46; Start 10/24/18 at 22:00; Stop 10/25/18 at 10:18; Status DC Albuterol Sulfate (Ventolin Neb Soln) 2.5 mg PRN Q6HRS PRN INH SHORTNESS OF BREATH; Start 10/24/18 at 19:45 Amlodipine Besylate (Norvasc) 10 mg PRN DAILY PRN PO HYPERTENSION, SEE COMMENTS ; Start 10/24/18 at 19:45 Aspirin (Ecotrin) 81 mg DAILY PO ; Start 10/25/18 at 09:00 Cinacalcet (Sensipar) 30 mg DAILYWSUP PO ; Start 10/25/18 at 17:00 Clonidine HCl (Catapres Tts-2) 1 patch WEEKLY TD ; Start 10/31/18 at 09:00 Clonidine HCl (Catapres) 0.2 mg BID PO ; Start 10/24/18 at 21:00; Stop 10/24/18 at 21:00; Status DC Doxycycline Hyclate (Vibra-Tab) 100 mg BID PO ; Start 10/24/18 at 21:00; Stop 10/24/18 at 21:00; Status DC Ferrous Sulfate (Feosol) 325 mg DAILY PO ; Start 10/25/18 at 09:00 Furosemide (Lasix) 40 mg DAILY PO ; Start 10/25/18 at 09:00 Calcium Acetate (Phoslo) 1,334 mg TIDWMEALS PO ; Start 10/25/18 at 08:00 Aspirin (Ecotrin) 325 mg 1X ONCE PO Last administered on 10/25/18at 10:35; Start 10/25/18 at 10:30; Stop 10/25/18 at 10:31; Status DC Heparin Sodium/ Dextrose 500 ml @ 0 mls/hr CONT PRN IV SEE I/O RECORD; Start at 10:15; Status UNV Heparin Sodium/ Dextrose 500 ml @ 0 mls/hr CONT PRN IV SEE I/O RECORD Last administered on 10/25/18at 10:41; Start 10/25/18 at 10:30 Heparin Sodium (Porcine) (Heparin Sodium) 2,300 unit PRN Q6HRS PRN IV FOR UFH LEVEL LESS THAN 0.2 Last administered on 10/25/18at 10:42; Start 10/25/18 at 10:30 Sodium Chloride 1,000 ml @ 1,000 mls/hr Q1H PRN IV hypotension; Start 10/25/18 at 10:19; Stop 10/25/18 at 16:18 Sodium Chloride 1,000 ml @ 400 mls/hr Q2H30M PRN IV PATENCY; Start 10/25/18 at 10:19; Stop 10/25/18 at 22:18 Info (PHARMACY MONITORING -- do not chart) 1 each PRN DAILY PRN MC SEE COMMENTS ; Start 10/25/18 at 10:30 Info (Anti-Coagulation Monitoring By Pharmacy) 1 each PRN DAILY PRN MC SEE COMMENTS; Start 10/25/18 at 10:30 Active Scripts Active Proair Hfa Inhaler (Albuterol Sulfate) 8.5 Gm Hfa.aer.ad 1 Puff INH PRN Q6HRS PRN 14 Days Doxycycline Hyclate 100 Mg Tablet 100 Mg PO BID 7 Days Reported Catapres-Tts 2 (Clonidine) 1 Each Patch.tdwk 1 Each TD WEEKLY Clonidine Hcl 0.2 Mg Tablet 0.2 Mg PO BID [facility] [place] D Tablet (Multivitamin, Min Cmb#25/Fa/D3) 1 Each Tablet 1 Each PO DAILY Renvela (Sevelamer Carbonate) 800 Mg Tablet 2 Tab PO TIDWMEALHC Sensipar (Cinacalcet Hcl) 30 Mg Tablet 1 Tab PO DAILYWSUP Calcium Acetate 667 Mg Tablet 1,334 Mg PO TIDWMEALS Lovastatin 10 Mg Tablet 10 Mg PO HS Losartan Potassium 100 Mg Tablet 100 Mg PO DAILY Amlodipine Besylate 10 Mg Tablet 10 Mg PO PRN DAILY PRN Ferrous Sulfate 325 Mg Tablet 1 Tab PO DAILY Lasix (Furosemide) 40 Mg Tablet 1 Tab PO DAILY Aspir 81 (Aspirin) 81 Mg Tablet. 1 Tab PO DAILY Vitals/I & O Vital Sign - Last 24 Hours 10/24/18 10/24/18 10/24/18 10/24/18 14:09 16:34 17:15 17:36 Temp 98.1 98.1 Pulse 90 92 100 Resp 19 16 B/P (MAP) 145/67 (93) 222/86 200/76 (117) Pulse Ox 96 96 O2 Delivery Room Air Room Air 10/24/18 10/24/18 10/24/18 10/24/18 18:09 18:37 18:50 20:40 Temp 97.6 97.6 Pulse 100 92 97 Resp 16 18 B/P (MAP) 199/70 140/78 (98) 121/45 (70) Pulse Ox 97 O2 Delivery Room Air Room Air 10/24/18 10/25/18 10/25/18 10/25/18 23:10 03:30 07:00 08:00 Temp 97.2 98.2 98.6 97.2 98.2 98.6 Pulse 91 90 88 Resp 20 18 20 B/P (MAP) 113/59 (77) 116/56 (76) 120/58 (78) Pulse Ox 92 95 95 O2 Delivery Room Air Room Air Room Air Room Air 10/25/18 10/25/18 09:38 10:47 Resp 20 Pulse Ox 98 98 O2 Delivery Room Air Room Air Intake and Output 10/24/18 10/24/18 10/25/18 15:01 23:01 07:01 Output Total 0 ml Balance 0 ml GEORGIE SLATER MD Oct 25, 2018 11:11
[2018-10-25] MEDS: ANTI-COAG MONITOR BY PHARMACY. MC PRN (11:53)
--- NOTE | 2018-10-25 12:36 | PDOC2 ---
CONSULT Date of Consult Date of Consult DATE: 10/25/18 TIME: 12:24 Reason for Consult Reason for Consult: ESRD Identification/Chief Complaint Chief Complaint Leg pain and swelling Source Source: Chart review, Patient History of Present Illness Reason for Visit: Pt is 88 yo AA female ESRD on HD - admitted for complains of leg pain and bilateral LE swelling more to right. She is known for PAD but moderate disease in the past. She was having exertional CP and CARRERA in the last 2 weeks. No nausea or vomiting Currently she denies any CP or SOB . Not significant RRF Past Medical History Cardiovascular: CAD, HTN, Hyperlipidemia, Other (bradycardia; lymphedema; PAD) Pulmonary: Pulmonary embolus CENTRAL NERVOUS SYSTEM: Other GI: No pertinent hx Heme/Onc: Anemia NOS Hepatobiliary: No pertinent hx Psych: No pertinent hx Musculoskeletal: Osteoarthritis Rheumatologic: No pertinent hx Infectious disease: No pertinent hx Renal/: Chronic renal failure Endocrine: Diabetes (2) Past Surgical History Past Surgical History: Other (LAV fistula dialysis, oopherectomy) Family History Family History: Family History Unknown Social History No ALCOHOL: none Drugs: None Lives: with Family Current Problem List Problem List Problems Medical Problems: (1) Hyperkalemia Status: Acute Current Medications Current Medications Current Medications Aspirin (Margie Aspirin) 325 mg 1X ONCE PO Last administered on 10/24/18 14:51 ; Start 10/24/18 at 14:45; Stop 10/24/18 at 14:46; Status DC Fentanyl Citrate (Fentanyl 2ml Vial) 50 mcg 1X ONCE IV Last administered on 16:34; Start 10/24/18 at 15:00; Stop 10/24/18 at 15:01; Status DC Bumetanide (Bumex) 1 mg 1X ONCE IV Last administered on 10/24/18at 16:35; Start 10/24/18 at 16:19; Stop 10/24/18 at 16:20; Status DC Calcium Gluconate (Calcium Gluconate) 1,000 mg 1X ONCE IVP Last administered on 10/24/18 16:34; Start 10/24/18 at 16:15; Stop 10/24/18 at 16:19; Status DC Insulin Human Regular (HumuLIN R VIAL) 10 unit 1X ONCE IV Last administered on 10/24/18at 16:36; Start 10/24/18 at 16:15; Stop 10/24/18 at 16:19; Status DC Dextrose (Dextrose 50%-Water Syringe) 25 gm 1X ONCE IV Last administered on 10/24/18at 16:35; Start 10/24/18 at 16:15; Stop 10/24/18 at 16:19; Status DC Nitroglycerin (Nitro-Bid Oint) 1 inch 1X ONCE TP Last administered on at 17:15; Start 10/24/18 at 17:15; Stop 10/24/18 at 17:16; Status DC Sodium Polystyrene Sulfonate (Kayexalate) 30 gm 1X ONCE PO Last administered on 10/24/18at 17:16; Start 10/24/18 at 17:15; Stop 10/24/18 at 17:16; Status DC Ondansetron HCl (Zofran) 4 mg PRN Q8HRS PRN IV NAUSEA/VOMITING; Start 10/24/18 at 17:15; Stop 10/25/18 at 17:14 Fentanyl Citrate (Fentanyl 2ml Vial) 50 mcg Q2HR PRN IV PAIN Last administered on 10/25/18at 10:47; Start 10/24/18 at 17:15; Stop 10/25/18 at 17:14 Insulin Human Lispro (HumaLOG) 0-5 UNITS TIDWMEALS SQ ; Start 10/25/18 at 08:00 Dextrose (Dextrose 50%-Water Syringe) 12.5 gm PRN Q15MIN PRN IV SEE COMMENTS; Start 10/24/18 at 17:30 Dextrose (Dextrose 50%-Water Syringe) 25 gm 1X ONCE IV Last administered on 10/24/18at 18:02; Start 10/24/18 at 18:00; Stop 10/24/18 at 18:04; Status DC Hydralazine HCl (Apresoline Inj) 20 mg 1X ONCE IVP Last administered on 18:09; Start 10/24/18 at 18:15; Stop 10/24/18 at 18:16; Status DC Ceftriaxone Sodium (Rocephin) 1 gm 1X ONCE IVP Last administered on 10/24/18 20:22; Start 10/24/18 at 19:30; Stop 10/24/18 at 19:31; Status DC Heparin Sodium (Porcine) (Heparin Sodium) 5,000 unit Q8HRS SQ Last administered on 10/25/18at 05:46; Start 10/24/18 at 22:00; Stop 10/25/18 at 10:18; Status DC Albuterol Sulfate (Ventolin Neb Soln) 2.5 mg PRN Q6HRS PRN INH SHORTNESS OF BREATH; Start 10/24/18 at 19:45 Amlodipine Besylate (Norvasc) 10 mg PRN DAILY PRN PO HYPERTENSION, SEE COMMENTS ; Start 10/24/18 at 19:45 Aspirin (Ecotrin) 81 mg DAILY PO ; Start 10/25/18 at 09:00 Cinacalcet (Sensipar) 30 mg DAILYWSUP PO ; Start 10/25/18 at 17:00 Clonidine HCl (Catapres Tts-2) 1 patch WEEKLY TD ; Start 10/31/18 at 09:00 Clonidine HCl (Catapres) 0.2 mg BID PO ; Start 10/24/18 at 21:00; Stop 10/24/18 at 21:00; Status DC Doxycycline Hyclate (Vibra-Tab) 100 mg BID PO ; Start 10/24/18 at 21:00; Stop 10/24/18 at 21:00; Status DC Ferrous Sulfate (Feosol) 325 mg DAILY PO ; Start 10/25/18 at 09:00 Furosemide (Lasix) 40 mg DAILY PO ; Start 10/25/18 at 09:00 Calcium Acetate (Phoslo) 1,334 mg TIDWMEALS PO ; Start 10/25/18 at 08:00 Aspirin (Ecotrin) 325 mg 1X ONCE PO Last administered on 10/25/18at 10:35; Start 10/25/18 at 10:30; Stop 10/25/18 at 10:31; Status DC Heparin Sodium/ Dextrose 500 ml @ 0 mls/hr CONT PRN IV SEE I/O RECORD; Start at 10:15; Status UNV Heparin Sodium/ Dextrose 500 ml @ 0 mls/hr CONT PRN IV SEE I/O RECORD Last administered on 10/25/18at 10:41; Start 10/25/18 at 10:30 Heparin Sodium (Porcine) (Heparin Sodium) 2,300 unit PRN Q6HRS PRN IV FOR UFH LEVEL LESS THAN 0.2 Last administered on 10/25/18at 10:42; Start 10/25/18 at 10:30 Sodium Chloride 1,000 ml @ 1,000 mls/hr Q1H PRN IV hypotension; Start 10/25/18 at 10:19; Stop 10/25/18 at 16:18 Sodium Chloride 1,000 ml @ 400 mls/hr Q2H30M PRN IV PATENCY; Start 10/25/18 at 10:19; Stop 10/25/18 at 22:18 Info (PHARMACY MONITORING -- do not chart) 1 each PRN DAILY PRN MC SEE COMMENTS ; Start 10/25/18 at 10:30 Info (Anti-Coagulation Monitoring By Pharmacy) 1 each PRN DAILY PRN MC SEE COMMENTS Last administered on 10/25/18at 11:53; Start 10/25/18 at 10:30 Atorvastatin Calcium (Lipitor) 10 mg QHS PO ; Start 10/25/18 at 21:00 Active Scripts Active Proair Hfa Inhaler (Albuterol Sulfate) 8.5 Gm Hfa.aer.ad 1 Puff INH PRN Q6HRS PRN 14 Days Doxycycline Hyclate 100 Mg Tablet 100 Mg PO BID 7 Days Reported Catapres-Tts 2 (Clonidine) 1 Each Patch.tdwk 1 Each TD WEEKLY Clonidine Hcl 0.2 Mg Tablet 0.2 Mg PO BID Dialyvite [place] D Tablet (Multivitamin, Min Cmb#25/Fa/D3) 1 Each Tablet 1 Each PO DAILY Renvela (Sevelamer Carbonate) 800 Mg Tablet 2 Tab PO TIDWMEALHC Sensipar (Cinacalcet Hcl) 30 Mg Tablet 1 Tab PO DAILYWSUP Calcium Acetate 667 Mg Tablet 1,334 Mg PO TIDWMEALS Lovastatin 10 Mg Tablet 10 Mg PO HS Losartan Potassium 100 Mg Tablet 100 Mg PO DAILY Amlodipine Besylate 10 Mg Tablet 10 Mg PO PRN DAILY PRN Ferrous Sulfate 325 Mg Tablet 1 Tab PO DAILY Lasix (Furosemide) 40 Mg Tablet 1 Tab PO DAILY Aspir 81 (Aspirin) 81 Mg Tablet. 1 Tab PO DAILY Allergies Allergies: Coded Allergies: No Known Drug Allergies (Unverified , 07/14/17) ROS Review of System As per HPI Physical Exam Physical Exam General: NAD HEENT: OM moist Neck Supple Lungs: CTA bilat, No use of access muscles Abdomen: Soft, No tenderness, obese Extremities: leg edema Trace to 1+ ,bilateral LE with tenderness, changes of CVI+ Neuro: Grossly normal Skin No rash No [place] Vital Signs Vital Signs Date Time Temp Pulse Resp B/P (MAP) Pulse Ox O2 Delivery O2 Flow Rate FiO2 10/25/18 10:47 20 98 Room Air 10/25/18 07:00 98.6 88 120/58 (78) 98.6 Assessment & Plan ESRD - On HD - [facility]- [facility]- Dr. 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) DM2 PAD Labs Labs Laboratory Tests Test 10/24/18 14:02 10/24/18 14:27 10/24/18 15:15 10/24/18 17:57 Glucose (Fingerstick) 108 mg/dL (70-99) 28 mg/dL (70-99) Prothrombin Time 14.2 SEC (11.7-14.0) Prothromb Time International Ratio 1.1 (0.8-1.1) Activated Partial Thromboplast Time 35 SEC (24-38) White Blood Count 7.3 x10^3/uL (4.0-11.0) Red Blood Count 3.53 x10^6/uL (3.50-5.40) Hemoglobin 10.3 g/dL (12.0-15.5) Hematocrit 32.7 % (36.0-47.0) Mean Corpuscular Volume 93 fL (79-100) Mean Corpuscular Hemoglobin 29 pg (25-35) Mean Corpuscular Hemoglobin Concent 32 g/dL (31-37) Red Cell Distribution Width 17.0 % (11.5-14.5) Platelet Count 293 x10^3/uL (140-400) Neutrophils (%) (Auto) 81 % (31-73) Lymphocytes (%) (Auto) 9 % (24-48) Monocytes (%) (Auto) 8 % (0-9) Eosinophils (%) (Auto) 1 % (0-3) Basophils (%) (Auto) 1 % (0-3) Neutrophils # (Auto) 5.9 x10^3uL (1.8-7.7) Lymphocytes # (Auto) 0.7 x10^3/uL (1.0-4.8) Monocytes # (Auto) 0.6 x10^3/uL (0.0-1.1) Eosinophils # (Auto) 0.1 x10^3/uL (0.0-0.7) Basophils # (Auto) 0.1 x10^3/uL (0.0-0.2) Sodium Level 142 mmol/L (136-145) Potassium Level 6.0 mmol/L (3.5-5.1) Chloride Level 101 mmol/L (98-107) Carbon Dioxide Level 27 mmol/L (21-32) Anion Gap 14 (6-14) Blood Urea Nitrogen 40 mg/dL (7-20) Creatinine 8.6 mg/dL (0.6-1.0) Estimated GFR (Cockcroft-Gault) 5.3 BUN/Creatinine Ratio 5 (6-20) Glucose Level 97 mg/dL (70-99) Lactic Acid Level 2.4 mmol/L (0.4-2.0) Calcium Level 9.7 mg/dL (8.5-10.1) Magnesium Level 2.5 mg/dL (1.8-2.4) Total Bilirubin 0.5 mg/dL (0.2-1.0) Aspartate Amino Transf (AST/SGOT) 33 U/L (15-37) Alanine Aminotransferase (ALT/SGPT) 35 U/L (14-59) Alkaline Phosphatase 133 U/L (46-116) Creatine Kinase 154 U/L (26-192) Creatine Kinase MB (Mass) 2.1 ng/mL (0.0-3.6) Creatine Kinase MB Relative Index 1.4 % (0-4) Troponin I Quantitative 0.574 ng/mL (0.000-0.055) QM-Gkg-I-Type Natriuretic Peptide > 36230 pg/mL (0-449) Total Protein 7.8 g/dL (6.4-8.2) Albumin 3.3 g/dL (3.4-5.0) Albumin/Globulin Ratio 0.7 (1.0-1.7) Lipase 89 U/L (73-393) Test 10/24/18 18:25 10/24/18 20:20 10/24/18 20:22 10/24/18 23:00 Glucose (Fingerstick) 77 mg/dL (70-99) 104 mg/dL (70-99) Troponin I Quantitative 0.475 ng/mL (0.000-0.055) Lactic Acid Level 2.1 mmol/L (0.4-2.0) Test 10/25/18 03:00 10/25/18 08:08 White Blood Count 7.6 x10^3/uL (4.0-11.0) Red Blood Count 3.40 x10^6/uL (3.50-5.40) Hemoglobin 9.9 g/dL (12.0-15.5) Hematocrit 31.2 % (36.0-47.0) Mean Corpuscular Volume 92 fL (79-100) Mean Corpuscular Hemoglobin 29 pg (25-35) Mean Corpuscular Hemoglobin Concent 32 g/dL (31-37) Red Cell Distribution Width 17.2 % (11.5-14.5) Platelet Count 302 x10^3/uL (140-400) Neutrophils (%) (Auto) 77 % (31-73) Lymphocytes (%) (Auto) 12 % (24-48) Monocytes (%) (Auto) 10 % (0-9) Eosinophils (%) (Auto) 0 % (0-3) Basophils (%) (Auto) 1 % (0-3) Neutrophils # (Auto) 5.9 x10^3uL (1.8-7.7) Lymphocytes # (Auto) 0.9 x10^3/uL (1.0-4.8) Monocytes # (Auto) 0.7 x10^3/uL (0.0-1.1) Eosinophils # (Auto) 0.0 x10^3/uL (0.0-0.7) Basophils # (Auto) 0.1 x10^3/uL (0.0-0.2) Sodium Level 143 mmol/L (136-145) Potassium Level 5.7 mmol/L (3.5-5.1) Chloride Level 100 mmol/L (98-107) Carbon Dioxide Level 29 mmol/L (21-32) Anion Gap 14 (6-14) Blood Urea Nitrogen 43 mg/dL (7-20) Creatinine 9.6 mg/dL (0.6-1.0) Estimated GFR (Cockcroft-Gault) 4.7 Glucose Level 99 mg/dL (70-99) Lactic Acid Level 1.8 mmol/L (0.4-2.0) Calcium Level 9.6 mg/dL (8.5-10.1) Phosphorus Level 7.3 mg/dL (2.6-4.7) Troponin I Quantitative 1.128 ng/mL (0.000-0.055) Albumin 3.2 g/dL (3.4-5.0) Triglycerides Level 65 mg/dL (0-150) Cholesterol Level 166 mg/dL (0-200) LDL Cholesterol, Calculated 94 mg/dL (0-100) VLDL Cholesterol, Calculated 13 mg/dL (0-40) Non-HDL Cholesterol Calculated 107 mg/dL (0-129) HDL Cholesterol 59 mg/dL (40-60) Cholesterol/HDL Ratio 2.8 Glucose (Fingerstick) 77 mg/dL (70-99) Laboratory Tests Test 10/24/18 14:02 10/24/18 14:27 10/24/18 15:15 10/24/18 17:57 Glucose (Fingerstick) 108 mg/dL (70-99) 28 mg/dL (70-99) Prothrombin Time 14.2 SEC (11.7-14.0) Prothromb Time International Ratio 1.1 (0.8-1.1) Activated Partial Thromboplast Time 35 SEC (24-38) White Blood Count 7.3 x10^3/uL (4.0-11.0) Red Blood Count 3.53 x10^6/uL (3.50-5.40) Hemoglobin 10.3 g/dL (12.0-15.5) Hematocrit 32.7 % (36.0-47.0) Mean Corpuscular Volume 93 fL (79-100) Mean Corpuscular Hemoglobin 29 pg (25-35) Mean Corpuscular Hemoglobin Concent 32 g/dL (31-37) Red Cell Distribution Width 17.0 % (11.5-14.5) Platelet Count 293 x10^3/uL (140-400) Neutrophils (%) (Auto) 81 % (31-73) Lymphocytes (%) (Auto) 9 % (24-48) Monocytes (%) (Auto) 8 % (0-9) Eosinophils (%) (Auto) 1 % (0-3) Basophils (%) (Auto) 1 % (0-3) Neutrophils # (Auto) 5.9 x10^3uL (1.8-7.7) Lymphocytes # (Auto) 0.7 x10^3/uL (1.0-4.8) Monocytes # (Auto) 0.6 x10^3/uL (0.0-1.1) Eosinophils # (Auto) 0.1 x10^3/uL (0.0-0.7) Basophils # (Auto) 0.1 x10^3/uL (0.0-0.2) Sodium Level 142 mmol/L (136-145) Potassium Level 6.0 mmol/L (3.5-5.1) Chloride Level 101 mmol/L (98-107) Carbon Dioxide Level 27 mmol/L (21-32) Anion Gap 14 (6-14) Blood Urea Nitrogen 40 mg/dL (7-20) Creatinine 8.6 mg/dL (0.6-1.0) Estimated GFR (Cockcroft-Gault) 5.3 BUN/Creatinine Ratio 5 (6-20) Glucose Level 97 mg/dL (70-99) Lactic Acid Level 2.4 mmol/L (0.4-2.0) Calcium Level 9.7 mg/dL (8.5-10.1) Magnesium Level 2.5 mg/dL (1.8-2.4) Total Bilirubin 0.5 mg/dL (0.2-1.0) Aspartate Amino Transf (AST/SGOT) 33 U/L (15-37) Alanine Aminotransferase (ALT/SGPT) 35 U/L (14-59) Alkaline Phosphatase 133 U/L (46-116) Creatine Kinase 154 U/L (26-192) Creatine Kinase MB (Mass) 2.1 ng/mL (0.0-3.6) Creatine Kinase MB Relative Index 1.4 % (0-4) Troponin I Quantitative 0.574 ng/mL (0.000-0.055) TB-Pri-J-Type Natriuretic Peptide > 24082 pg/mL (0-449) Total Protein 7.8 g/dL (6.4-8.2) Albumin 3.3 g/dL (3.4-5.0) Albumin/Globulin Ratio 0.7 (1.0-1.7) Lipase 89 U/L (73-393) Test 10/24/18 18:25 10/24/18 20:20 10/24/18 20:22 10/24/18 23:00 Glucose (Fingerstick) 77 mg/dL (70-99) 104 mg/dL (70-99) Troponin I Quantitative 0.475 ng/mL (0.000-0.055) Lactic Acid Level 2.1 mmol/L (0.4-2.0) Test 10/25/18 03:00 10/25/18 08:08 White Blood Count 7.6 x10^3/uL (4.0-11.0) Red Blood Count 3.40 x10^6/uL (3.50-5.40) Hemoglobin 9.9 g/dL (12.0-15.5) Hematocrit 31.2 % (36.0-47.0) Mean Corpuscular Volume 92 fL (79-100) Mean Corpuscular Hemoglobin 29 pg (25-35) Mean Corpuscular Hemoglobin Concent 32 g/dL (31-37) Red Cell Distribution Width 17.2 % (11.5-14.5) Platelet Count 302 x10^3/uL (140-400) Neutrophils (%) (Auto) 77 % (31-73) Lymphocytes (%) (Auto) 12 % (24-48) Monocytes (%) (Auto) 10 % (0-9) Eosinophils (%) (Auto) 0 % (0-3) Basophils (%) (Auto) 1 % (0-3) Neutrophils # (Auto) 5.9 x10^3uL (1.8-7.7) Lymphocytes # (Auto) 0.9 x10^3/uL (1.0-4.8) Monocytes # (Auto) 0.7 x10^3/uL (0.0-1.1) Eosinophils # (Auto) 0.0 x10^3/uL (0.0-0.7) Basophils # (Auto) 0.1 x10^3/uL (0.0-0.2) Sodium Level 143 mmol/L (136-145) Potassium Level 5.7 mmol/L (3.5-5.1) Chloride Level 100 mmol/L (98-107) Carbon Dioxide Level 29 mmol/L (21-32) Anion Gap 14 (6-14) Blood Urea Nitrogen 43 mg/dL (7-20) Creatinine 9.6 mg/dL (0.6-1.0) Estimated GFR (Cockcroft-Gault) 4.7 Glucose Level 99 mg/dL (70-99) Lactic Acid Level 1.8 mmol/L (0.4-2.0) Calcium Level 9.6 mg/dL (8.5-10.1) Phosphorus Level 7.3 mg/dL (2.6-4.7) Troponin I Quantitative 1.128 ng/mL (0.000-0.055) Albumin 3.2 g/dL (3.4-5.0) Triglycerides Level 65 mg/dL (0-150) Cholesterol Level 166 mg/dL (0-200) LDL Cholesterol, Calculated 94 mg/dL (0-100) VLDL Cholesterol, Calculated 13 mg/dL (0-40) Non-HDL Cholesterol Calculated 107 mg/dL (0-129) HDL Cholesterol 59 mg/dL (40-60) Cholesterol/HDL Ratio 2.8 Glucose (Fingerstick) 77 mg/dL (70-99) Review All relevant outside records, renal labs, imaging studies, telemetry/EKG's were reviewed. TOMMY LUND MD Oct 25, 2018 12:36
--- NOTE | 2018-10-25 12:47 | NUR ---
SS following for discharge planning. SS reviewed pt chart. Pt is from home with spouse and currently on room air. No PT/OT evaluations or discharge needs noted at this time. SS will continue to follow for pending discharge needs.
[2018-10-25 13:40] VITALS: BP 142/60
[2018-10-25] MEDS: FUROSEMIDE 40 MG TABLET. PO SCH (13:42)
[2018-10-25] MEDS: FERROUS SULFATE 325 MG TABLET. PO SCH (13:42)
[2018-10-25 15:31] VITALS: BP 98/41
--- NOTE | 2018-10-25 15:44 | CARD ---
MR#: [id number] Date of Study: 10/25/2018 Ordering Physician: SHAVON ORTEGA, Referring Physician: SHAVON ORTEGA, Tech: Lynette Fatima APPROVED REPORT EXAM: Two-dimensional and M-mode echocardiogram with Doppler and color Doppler. Other Information Quality : AverageHR: 95bpm INDICATION Congestive Heart Failure 2D DIMENSIONS RVDd4.1 (2.9-3.5cm)Left Atrium(2D)4.0 (1.6-4.0cm) IVSd1.2 (0.7-1.1cm)Aortic Root(2D)2.6 (2.0-3.7cm) LVDd4.5 (3.9-5.9cm)LVOT Diameter1.9 (1.8-2.4cm) PWd1.2 (0.7-1.1cm)LVDs3.3 (2.5-4.0cm) FS (%) 25.7 %SV46.1 ml Aortic Valve AoV Peak Dequan.181.4cm/sAoV VTI33.2cm AO Peak GR.13.2mmHgLVOT VTI 16.05cm AO Mean GR.6mmHg Mitral Valve MV E Cqlbpocw956.0cm/sMV DECEL [id number] MV A Outxsmmk470.6cm/sE/A Ratio1.0 TDI Lateral E' P. V7.21cm/sMedial E' P. V6.05cm/s E/Lateral E'15.8E/Medial E'18.8 Tricuspid Valve TR P. Eqrloiso089pz/sRAP [id number] TR Peak Gr.87wvTjECME08vbXi Pulmonary Vein S1 Xmrcysmu63.5cm/sS2 Wdknqhmf15.81cm/s D2 Tynlroic09.8cm/s LEFT VENTRICLE The left ventricle is normal size. There is borderline to mild concentric left ventricular hypertroph y. The left ventricular systolic function is normal and the ejection fraction is within normal range. The Ejection Fraction is 55-60%. There is normal LV segmental wall motion. Transmitral Doppler flow pattern is Grade I-abnormal relaxation pattern. RIGHT VENTRICLE The right ventricle is mild to moderately dilated. There is normal right ventricular wall thickness. Systolic function is mildly reduced. ATRIA The left atrium size is normal. The right atrium is mildly dilated. The interatrial septum is intact with no evidence for an atrial septal defect or patent foramen ovale as noted on 2-D or Doppler imagi ng. AORTIC VALVE The aortic valve is calcified but opens well. Doppler and Color Flow revealed no significant aortic r egurgitation. There is no significant aortic valvular stenosis. MITRAL VALVE The mitral valve is moderately thickened. There is no evidence of mitral valve prolapse. There is no mitral valve stenosis. Doppler and Color-flow revealed mild to moderate mitral regurgitation. TRICUSPID VALVE The tricuspid valve is normal in structure and function. Doppler and Color Flow revealed mild to mode rate tricuspid regurgitation. There is no tricuspid valve stenosis. PULMONIC VALVE The pulmonic valve is not well visualized. Doppler and Color Flow revealed no pulmonic valvular regur gitation. GREAT VESSELS The aortic root is normal in size. The IVC is normal in size and collapses >50% with inspiration. PERICARDIAL EFFUSION There is no evidence of significant pericardial effusion. Critical Notification Critical Value: No <Conclusion> The left ventricle is normal size. The left ventricular systolic function is normal and the ejection fraction is within normal range. The Ejection Fraction is 55-60%. There is borderline to mild concentric left ventricular hypertrophy. The right ventricle is mild to moderately dilated. RV systolic function is mildly reduced. There is no significant aortic valvular stenosis. Doppler and Color Flow revealed no significant aortic regurgitation. Doppler and Color-flow revealed mild to moderate mitral regurgitation. Doppler and Color Flow revealed mild to moderate tricuspid regurgitation. Signed by : Lai Leonard MD Electronically Approved : 10/25/2018 15:41:56
[2018-10-25] MEDS: CINACALCET HCL 30 MG TABLET PO SCH (17:00)
[2018-10-25 19:30] VITALS: BP 124/58
[2018-10-25] MEDS: ATORVASTATIN CALCIUM 10 MG TABLET. PO SCH (20:44)
[2018-10-25 23:19] VITALS: BP 120/60
[2018-10-26] VITALS (11 sets, daily range): BP systolic 112–164; BP diastolic 48–73
[2018-10-26] MEDS: CALCIUM ACETATE 667 MG CAPSULE PO SCH ×3 (08:00→17:00)
[2018-10-26] MEDS: INSULIN LISPRO 300 UNITS/3 ML INSULN.PEN. SQ SCH ×3 (08:00→17:00)
--- NOTE | 2018-10-26 08:09 | PDOC ---
PROGRESS NOTES Chief Complaint Chief Complaint Edema of both lower legs, right sided CHF, Diastolic CHF, Mild pulmonary vascular congestion Elevated troponin i= .57 Superficial cellulitis both lower legs ESRD on dialysis Hyperkalemia Secondary pulmonary hypertension Anemia PVD Morbid obesity COPD Rt leg chronic wound Moderate diffuse arterial disease of the left lower extremity without any focal high-grade stenosis. 11/05/2017 Extensive coronary artery calcification by ct 2014 DIABETES History of Present Illness History of Present Illness 88 yr old AA female admitted with bilateral leg edema, superficial wounds both legs, elevated troponin i, hyperkalemia, known ESRD on dialysis, cxr c/w acute CHF. 10/25: Hypoglycemic overnight, corrected. Potassium 6 corrected to 5.7. RLE pain today exquisite to even light touch. She still c/o some SOB and non-productive cough. Troponin over 1 today now. Denies chest pain. Seen on dialysis Feeling right leg pain and cold today. NO CP. has mild SOB. She and family are amenable to coronary angiography with runoff to right leg today. A/P: NSTEMI - with elevation in Trop 1.1, ST depressions, start heparin GTT, consult cardiology Hyperkalemia - K 6, to dialysis today. Labs daily Right leg pain - historically with known PVD in left leg. Was going to see vascular surgery later this week, daughter brought her to ED for evaluation more urgently. Cardiology to evaluate at this time. She refused to have CT angiography yesterday ESRD - HD tomorrow Acute on chronic diastolic CHF - UF per nephrology at dialysis DM2 with hypoglycemic episode - adjusted insulin Anemia - of chronic renal disease. monitor FEN - Renal dietNPOheparin gtt FULL CODE Inpatient for NSTEMI, PVD, hyperkalemia Vitals Vitals Vital Signs Date Time Temp Pulse Resp B/P (MAP) Pulse Ox O2 Delivery O2 Flow Rate FiO2 10/26/18 07:25 Room Air 10/26/18 02:55 98.3 92 18 126/58 (80) 93 98.3 Physical Exam General: Alert, Oriented X3, Cooperative, No acute distress Lungs: Crackles Abdomen: Soft, No tenderness Extremities: Other (diminished pedal pulses, leg edema 2+ bilateral LE with tenderness, scabbed over wounds to RLE no oozing) Skin: Other (cellulitis both lower legs r> l) Labs LABS Laboratory Tests Test 10/25/18 13:40 10/25/18 16:34 10/25/18 16:45 10/25/18 20:26 Glucose (Fingerstick) 99 mg/dL (70-99) 145 mg/dL (70-99) 112 mg/dL (70-99) Heparin Anti-Xa Act, Unfractionated 0.57 IU/mL (0.30-0.70) Test 10/25/18 23:10 10/26/18 05:15 Heparin Anti-Xa Act, Unfractionated 0.58 IU/mL (0.30-0.70) 0.35 IU/mL (0.30-0.70) Assessment and Plan Assessmemt and Plan Problems Medical Problems: (1) Hyperkalemia Status: Acute Comment Review of Relevant I have reviewed the following items vicente (where applicable) has been applied. Labs Laboratory Tests Test 10/24/18 14:02 10/24/18 14:27 10/24/18 15:15 10/24/18 17:57 Glucose (Fingerstick) 108 mg/dL (70-99) 28 mg/dL (70-99) Prothrombin Time 14.2 SEC (11.7-14.0) Prothromb Time International Ratio 1.1 (0.8-1.1) Activated Partial Thromboplast Time 35 SEC (24-38) White Blood Count 7.3 x10^3/uL (4.0-11.0) Red Blood Count 3.53 x10^6/uL (3.50-5.40) Hemoglobin 10.3 g/dL (12.0-15.5) Hematocrit 32.7 % (36.0-47.0) Mean Corpuscular Volume 93 fL (79-100) Mean Corpuscular Hemoglobin 29 pg (25-35) Mean Corpuscular Hemoglobin Concent 32 g/dL (31-37) Red Cell Distribution Width 17.0 % (11.5-14.5) Platelet Count 293 x10^3/uL (140-400) Neutrophils (%) (Auto) 81 % (31-73) Lymphocytes (%) (Auto) 9 % (24-48) Monocytes (%) (Auto) 8 % (0-9) Eosinophils (%) (Auto) 1 % (0-3) Basophils (%) (Auto) 1 % (0-3) Neutrophils # (Auto) 5.9 x10^3uL (1.8-7.7) Lymphocytes # (Auto) 0.7 x10^3/uL (1.0-4.8) Monocytes # (Auto) 0.6 x10^3/uL (0.0-1.1) Eosinophils # (Auto) 0.1 x10^3/uL (0.0-0.7) Basophils # (Auto) 0.1 x10^3/uL (0.0-0.2) Sodium Level 142 mmol/L (136-145) Potassium Level 6.0 mmol/L (3.5-5.1) Chloride Level 101 mmol/L (98-107) Carbon Dioxide Level 27 mmol/L (21-32) Anion Gap 14 (6-14) Blood Urea Nitrogen 40 mg/dL (7-20) Creatinine 8.6 mg/dL (0.6-1.0) Estimated GFR (Cockcroft-Gault) 5.3 BUN/Creatinine Ratio 5 (6-20) Glucose Level 97 mg/dL (70-99) Lactic Acid Level 2.4 mmol/L (0.4-2.0) Calcium Level 9.7 mg/dL (8.5-10.1) Magnesium Level 2.5 mg/dL (1.8-2.4) Total Bilirubin 0.5 mg/dL (0.2-1.0) Aspartate Amino Transf (AST/SGOT) 33 U/L (15-37) Alanine Aminotransferase (ALT/SGPT) 35 U/L (14-59) Alkaline Phosphatase 133 U/L (46-116) Creatine Kinase 154 U/L (26-192) Creatine Kinase MB (Mass) 2.1 ng/mL (0.0-3.6) Creatine Kinase MB Relative Index 1.4 % (0-4) Troponin I Quantitative 0.574 ng/mL (0.000-0.055) OU-Eaw-G-Type Natriuretic Peptide > 05079 pg/mL (0-449) Total Protein 7.8 g/dL (6.4-8.2) Albumin 3.3 g/dL (3.4-5.0) Albumin/Globulin Ratio 0.7 (1.0-1.7) Lipase 89 U/L (73-393) Test 10/24/18 18:25 2/3/19 20:20 10/24/18 20:22 10/24/18 23:00 Glucose (Fingerstick) 77 mg/dL (70-99) 104 mg/dL (70-99) Troponin I Quantitative 0.475 ng/mL (0.000-0.055) Lactic Acid Level 2.1 mmol/L (0.4-2.0) Test 10/25/18 03:00 10/25/18 08:08 10/25/18 13:40 10/25/18 16:34 White Blood Count 7.6 x10^3/uL (4.0-11.0) Red Blood Count 3.40 x10^6/uL (3.50-5.40) Hemoglobin 9.9 g/dL (12.0-15.5) Hematocrit 31.2 % (36.0-47.0) Mean Corpuscular Volume 92 fL (79-100) Mean Corpuscular Hemoglobin 29 pg (25-35) Mean Corpuscular Hemoglobin Concent 32 g/dL (31-37) Red Cell Distribution Width 17.2 % (11.5-14.5) Platelet Count 302 x10^3/uL (140-400) Neutrophils (%) (Auto) 77 % (31-73) Lymphocytes (%) (Auto) 12 % (24-48) Monocytes (%) (Auto) 10 % (0-9) Eosinophils (%) (Auto) 0 % (0-3) Basophils (%) (Auto) 1 % (0-3) Neutrophils # (Auto) 5.9 x10^3uL (1.8-7.7) Lymphocytes # (Auto) 0.9 x10^3/uL (1.0-4.8) Monocytes # (Auto) 0.7 x10^3/uL (0.0-1.1) Eosinophils # (Auto) 0.0 x10^3/uL (0.0-0.7) Basophils # (Auto) 0.1 x10^3/uL (0.0-0.2) Sodium Level 143 mmol/L (136-145) Potassium Level 5.7 mmol/L (3.5-5.1) Chloride Level 100 mmol/L (98-107) Carbon Dioxide Level 29 mmol/L (21-32) Anion Gap 14 (6-14) Blood Urea Nitrogen 43 mg/dL (7-20) Creatinine 9.6 mg/dL (0.6-1.0) Estimated GFR (Cockcroft-Gault) 4.7 Glucose Level 99 mg/dL (70-99) Lactic Acid Level 1.8 mmol/L (0.4-2.0) Calcium Level 9.6 mg/dL (8.5-10.1) Phosphorus Level 7.3 mg/dL (2.6-4.7) Troponin I Quantitative 1.128 ng/mL (0.000-0.055) Albumin 3.2 g/dL (3.4-5.0) Triglycerides Level 65 mg/dL (0-150) Cholesterol Level 166 mg/dL (0-200) LDL Cholesterol, Calculated 94 mg/dL (0-100) VLDL Cholesterol, Calculated 13 mg/dL (0-40) Non-HDL Cholesterol Calculated 107 mg/dL (0-129) HDL Cholesterol 59 mg/dL (40-60) Cholesterol/HDL Ratio 2.8 Glucose (Fingerstick) 77 mg/dL (70-99) 99 mg/dL (70-99) 145 mg/dL (70-99) Test 10/25/18 16:45 10/25/18 20:26 10/25/18 23:10 10/26/18 05:15 Heparin Anti-Xa Act, Unfractionated 0.57 IU/mL (0.30-0.70) 0.58 IU/mL (0.30-0.70) 0.35 IU/mL (0.30-0.70) Glucose (Fingerstick) 112 mg/dL (70-99) Laboratory Tests Test 10/25/18 13:40 10/25/18 16:34 10/25/18 16:45 10/25/18 20:26 Glucose (Fingerstick) 99 mg/dL (70-99) 145 mg/dL (70-99) 112 mg/dL (70-99) Heparin Anti-Xa Act, Unfractionated 0.57 IU/mL (0.30-0.70) Test 10/25/18 23:10 10/26/18 05:15 Heparin Anti-Xa Act, Unfractionated 0.58 IU/mL (0.30-0.70) 0.35 IU/mL (0.30-0.70) Medications Current Medications Aspirin (Margie Aspirin) 325 mg 1X ONCE PO Last administered on 10/24/18 14:51 ; Start 10/24/18 at 14:45; Stop 10/24/18 at 14:46; Status DC Fentanyl Citrate (Fentanyl 2ml Vial) 50 mcg 1X ONCE IV Last administered on 16:34; Start 10/24/18 at 15:00; Stop 10/24/18 at 15:01; Status DC Bumetanide (Bumex) 1 mg 1X ONCE IV Last administered on 10/24/18 16:35; Start 10/24/18 at 16:19; Stop 10/24/18 at 16:20; Status DC Calcium Gluconate (Calcium Gluconate) 1,000 mg 1X ONCE IVP Last administered on 10/24/18 16:34; Start 10/24/18 at 16:15; Stop 10/24/18 at 16:19; Status DC Insulin Human Regular (HumuLIN R VIAL) 10 unit 1X ONCE IV Last administered on 10/24/18 16:36; Start 10/24/18 at 16:15; Stop 10/24/18 at 16:19; Status DC Dextrose (Dextrose 50%-Water Syringe) 25 gm 1X ONCE IV Last administered on 16:35; Start 10/24/18 at 16:15; Stop 10/24/18 at 16:19; Status DC Nitroglycerin (Nitro-Bid Oint) 1 inch 1X ONCE TP Last administered on 17:15; Start 10/24/18 at 17:15; Stop 10/24/18 at 17:16; Status DC Sodium Polystyrene Sulfonate (Kayexalate) 30 gm 1X ONCE PO Last administered on 10/24/18 17:16; Start 10/24/18 at 17:15; Stop 10/24/18 at 17:16; Status DC Ondansetron HCl (Zofran) 4 mg PRN Q8HRS PRN IV NAUSEA/VOMITING; Start 10/24/18 at 17:15; Stop 10/25/18 at 17:14; Status DC Fentanyl Citrate (Fentanyl 2ml Vial) 50 mcg Q2HR PRN IV PAIN Last administered on 2/4/19at 10:47; Start 10/24/18 at 17:15; Stop 10/25/18 at 17:14; Status DC Insulin Human Lispro (HumaLOG) 0-5 UNITS TIDWMEALS SQ ; Start 10/25/18 at 08:00 Dextrose (Dextrose 50%-Water Syringe) 12.5 gm PRN Q15MIN PRN IV SEE COMMENTS; Start 10/24/18 at 17:30 Dextrose (Dextrose 50%-Water Syringe) 25 gm 1X ONCE IV Last administered on 10/24/18at 18:02; Start 10/24/18 at 18:00; Stop 10/24/18 at 18:04; Status DC Hydralazine HCl (Apresoline Inj) 20 mg 1X ONCE IVP Last administered on at 18:09; Start 10/24/18 at 18:15; Stop 10/24/18 at 18:16; Status DC Ceftriaxone Sodium (Rocephin) 1 gm 1X ONCE IVP Last administered on 10/24/18at 20:22; Start 10/24/18 at 19:30; Stop 10/24/18 at 19:31; Status DC Heparin Sodium (Porcine) (Heparin Sodium) 5,000 unit Q8HRS SQ Last administered on 10/25/18at 05:46; Start 10/24/18 at 22:00; Stop 10/25/18 at 10:18; Status DC Albuterol Sulfate (Ventolin Neb Soln) 2.5 mg PRN Q6HRS PRN INH SHORTNESS OF BREATH; Start 10/24/18 at 19:45 Amlodipine Besylate (Norvasc) 10 mg PRN DAILY PRN PO HYPERTENSION, SEE COMMENTS ; Start 10/24/18 at 19:45 Aspirin (Ecotrin) 81 mg DAILY PO ; Start 10/25/18 at 09:00 Cinacalcet (Sensipar) 30 mg DAILYWSUP PO ; Start 10/25/18 at 17:00 Clonidine HCl (Catapres Tts-2) 1 patch WEEKLY TD ; Start 10/31/18 at 09:00 Clonidine HCl (Catapres) 0.2 mg BID PO ; Start 10/24/18 at 21:00; Stop 10/24/18 at 21:00; Status DC Doxycycline Hyclate (Vibra-Tab) 100 mg BID PO ; Start 10/24/18 at 21:00; Stop 10/24/18 at 21:00; Status DC Ferrous Sulfate (Feosol) 325 mg DAILY PO Last administered on 10/25/18 13:42; Start 10/25/18 at 09:00 Furosemide (Lasix) 40 mg DAILY PO Last administered on 10/25/18 13:42; Start at 09:00 Calcium Acetate (Phoslo) 1,334 mg TIDWMEALS PO Last administered on 10/25/18 13 :42; Start 10/25/18 at 08:00 Aspirin (Ecotrin) 325 mg 1X ONCE PO Last administered on 10/25/18 10:35; Start 10/25/18 at 10:30; Stop 10/25/18 at 10:31; Status DC Heparin Sodium/ Dextrose 500 ml @ 0 mls/hr CONT PRN IV SEE I/O RECORD; Start at 10:15; Status UNV Heparin Sodium/ Dextrose 500 ml @ 0 mls/hr CONT PRN IV SEE I/O RECORD Last administered on 10/25/18at 10:41; Start 10/25/18 at 10:30 Heparin Sodium (Porcine) (Heparin Sodium) 2,300 unit PRN Q6HRS PRN IV FOR UFH LEVEL LESS THAN 0.2 Last administered on 10/25/18 10:42; Start 10/25/18 at 10:30 Sodium Chloride 1,000 ml @ 1,000 mls/hr Q1H PRN IV hypotension; Start 10/25/18 at 10:19; Stop 10/25/18 at 16:18; Status DC Sodium Chloride 1,000 ml @ 400 mls/hr Q2H30M PRN IV PATENCY; Start 10/25/18 at 10:19; Stop 10/25/18 at 22:18; Status DC Info (PHARMACY MONITORING -- do not chart) 1 each PRN DAILY PRN MC SEE COMMENTS ; Start 10/25/18 at 10:30 Info (Anti-Coagulation Monitoring By Pharmacy) 1 each PRN DAILY PRN MC SEE COMMENTS Last administered on 10/25/18 11:53; Start 10/25/18 at 10:30 Atorvastatin Calcium (Lipitor) 10 mg QHS PO Last administered on 10/25/18 20:44 ; Start 10/25/18 at 21:00 Active Scripts Active Proair Hfa Inhaler (Albuterol Sulfate) 8.5 Gm Hfa.aer.ad 1 Puff INH PRN Q6HRS PRN 14 Days Doxycycline Hyclate 100 Mg Tablet 100 Mg PO BID 7 Days Reported Catapres-Tts 2 (Clonidine) 1 Each Patch.tdwk 1 Each TD WEEKLY Clonidine Hcl 0.2 Mg Tablet 0.2 Mg PO BID Dialyvite Hyndman D Tablet (Multivitamin, Min Cmb#25/Fa/D3) 1 Each Tablet 1 Each PO DAILY Renvela (Sevelamer Carbonate) 800 Mg Tablet 2 Tab PO TIDWMEALHC Sensipar (Cinacalcet Hcl) 30 Mg Tablet 1 Tab PO DAILYWSUP Calcium Acetate 667 Mg Tablet 1,334 Mg PO TIDWMEALS Lovastatin 10 Mg Tablet 10 Mg PO HS Losartan Potassium 100 Mg Tablet 100 Mg PO DAILY Amlodipine Besylate 10 Mg Tablet 10 Mg PO PRN DAILY PRN Ferrous Sulfate 325 Mg Tablet 1 Tab PO DAILY Lasix (Furosemide) 40 Mg Tablet 1 Tab PO DAILY Aspir 81 (Aspirin) 81 Mg Tablet. 1 Tab PO DAILY Vitals/I & O Vital Sign - Last 24 Hours 10/25/18 10/25/18 10/25/18 10/25/18 09:38 10:47 11:15 13:40 Temp 97.6 97.6 Pulse 97 Resp 20 20 20 B/P (MAP) 142/60 (87) Pulse Ox 98 98 98 94 O2 Delivery Room Air Room Air Room Air Room Air 10/25/18 10/25/18 10/25/18 10/25/18 15:31 19:30 19:30 23:19 Temp 98.0 98.2 98.0 98.2 Pulse 93 92 90 Resp 20 20 17 B/P (MAP) 98/41 (60) 124/58 (80) 120/60 (80) Pulse Ox 98 93 O2 Delivery Room Air Room Air Room Air Room Air 10/26/18 10/26/18 02:55 07:25 Temp 98.3 98.3 Pulse 92 Resp 18 B/P (MAP) 126/58 (80) Pulse Ox 93 O2 Delivery Room Air Room Air Intake and Output 10/25/18 10/25/18 10/26/18 15:01 23:01 07:01 Intake Total 150 ml 460 ml Output Total 0 ml Balance 150 ml 460 ml GEORGIE SLATER MD Oct 26, 2018 08:08
[2018-10-26 08:21] LABS: BASO # 0.1 x10^3/uL (0.0-0.2); BASO % 1 % (0-3); EOS # 0.1 x10^3/uL (0.0-0.7); EOS % 1 % (0-3); HEMATOCRIT 32.3 % (36.0-47.0); HEMOGLOBIN 10.2 g/dL (12.0-15.5); LYMPH # 1.1 x10^3/uL (1.0-4.8); LYMPH % 16 % (24-48); MEAN CORPUSCULAR HEMOGLOBIN 29 pg (25-35); MEAN CORPUSCULAR HGB CONC 32 g/dL (31-37); MEAN CORPUSCULAR VOLUME 93 fL (79-100); MONO # 0.9 x10^3/uL (0.0-1.1); MONO % 13 % (0-9); NEUT # 4.6 x10^3uL (1.8-7.7); NEUT % 69 % (31-73); PLATELET COUNT 316 x10^3/uL (140-400); RED BLOOD COUNT 3.48 x10^6/uL (3.50-5.40); RED CELL DISTRIBUTION WIDTH 17.4 % (11.5-14.5); WHITE BLOOD COUNT 6.6 x10^3/uL (4.0-11.0)
[2018-10-26 08:34] LABS: ALBUMIN 3.3 g/dL (3.4-5.0); CALCIUM 9.8 mg/dL (8.5-10.1); CREATININE 6.5 mg/dL (0.6-1.0); GFR 7.3; PHOSPHORUS 6.8 mg/dL (2.6-4.7); POTASSIUM 4.7 mmol/L (3.5-5.1)
[2018-10-26] MEDS: fentaNYL PF VIAL 100 MCG/2 ML VIAL IV PRN ×2 (08:42→15:44)
--- NOTE | 2018-10-26 09:17 | PDOC ---
Provider Note Provider Note 10/26/2018 0900 Pt continues to complain of RLE pain but currently no CP, no SOA. VSS. Was hesitant to do the procedures yesterday. Discussed coronary arteriogram and femoral runoff with pt, risks and benefits agreeable to proceed. NICHOL PINEDA APRN Oct 26, 2018 09:17
[2018-10-26] MEDS ORDERED: LIDOCAINE 1% Multi-Dose 20 ML VIAL. ONE (10:03)
--- NOTE | 2018-10-26 10:32 | PDOC ---
SUBJECTIVE ROS Pt continues to complain of RLE pain OBJECTIVE Vital Signs Vital Signs Date Time Temp Pulse Resp B/P (MAP) Pulse Ox O2 Delivery O2 Flow Rate FiO2 10/26/18 09:10 20 95 Room Air 10/26/18 07:00 97.5 89 164/73 (103) 97.5 I & 0 Intake and Output 10/26/18 07:01 Intake Total 610 ml Output Total 0 ml Balance 610 ml Intake Oral 610 ml Output Urine Total 0 ml # Bowel Movements 1 PHYSICAL EXAM Physical Exam General: NAD HEENT: OM moist Neck Supple Lungs: CTA bilat, No use of access muscles Abdomen: Soft, No tenderness, obese Extremities: leg edema Trace to 1+ ,bilateral LE with tenderness, changes of CVI+ Neuro: Grossly normal Skin No rash No [place] DIAGNOSIS/ASSESSMENT Assessment & Plan ESRD - On HD - [facility]- Dr. 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) DM2 PAD- Rt LE pain Card recommending coronary arteriogram and femoral runoff COMMENT/RELEVANT DATA Meds Current Medications Medications (Trade) Dose Ordered Sig/Virgil Start Time Stop Time Status Last Admin Dose Admin Albuterol Sulfate (Ventolin Neb Soln) 2.5 mg PRN Q6HRS PRN 10/24/18 19:45 Amlodipine Besylate (Norvasc) 10 mg PRN DAILY PRN 10/24/18 19:45 Aspirin (Margie Aspirin) 325 mg 1X ONCE 10/24/18 14:45 10/24/18 14:46 DC 10/24/18 14:51 325 MG Aspirin (Ecotrin) 325 mg 1X ONCE 10/25/18 10:30 10/25/18 10:31 DC 10/25/18 10:35 325 MG Atorvastatin Calcium (Lipitor) 10 mg QHS 10/25/18 21:00 10/25/18 20:44 10 MG Bumetanide (Bumex) 1 mg 1X ONCE 10/24/18 16:19 10/24/18 16:20 DC 10/24/18 16:35 1 MG Calcium Acetate (Phoslo) 1,334 mg TIDWMEALS 10/25/18 08:00 10/25/18 13:42 1,334 MG Calcium Gluconate (Calcium Gluconate) 1,000 mg 1X ONCE 10/24/18 16:15 10/24/18 16:19 DC 10/24/18 16:34 1,000 MG Ceftriaxone Sodium (Rocephin) 1 gm 1X ONCE 10/24/18 19:30 10/24/18 19:31 DC 10/24/18 20:22 1 GM Cinacalcet (Sensipar) 30 mg DAILYWSUP 10/25/18 17:00 Clonidine HCl (Catapres Tts-2) 1 patch WEEKLY 10/31/18 09:00 Clonidine HCl (Catapres) 0.2 mg BID 10/24/18 21:00 10/24/18 21:00 DC Dextrose (Dextrose 50%-Water Syringe) 25 gm 1X ONCE 10/24/18 18:00 10/24/18 18:04 DC 10/24/18 18:02 25 GM Doxycycline Hyclate (Vibra-Tab) 100 mg BID 10/24/18 21:00 10/24/18 21:00 DC Fentanyl Citrate (Fentanyl 2ml Vial) 50 mcg PRN Q2HR PRN 10/26/18 08:30 10/26/18 08:42 50 MCG Ferrous Sulfate (Feosol) 325 mg DAILY 10/25/18 09:00 10/25/18 13:42 325 MG Furosemide (Lasix) 40 mg DAILY 10/25/18 09:00 10/25/18 13:42 40 MG Heparin Sodium (Porcine) (Heparin Sodium) 2,300 unit PRN Q6HRS PRN 10/25/18 10:30 10/25/18 10:42 2,300 UNIT Heparin Sodium/ Dextrose 500 ml @ 0 mls/hr CONT PRN 10/25/18 10:30 10/25/18 10:41 20 MLS/HR Heparin Sodium/ Sodium Chloride 500 ml @ As Directed STK-MED ONCE 10/26/18 10:03 10/26/18 10:05 DC Hydralazine HCl (Apresoline Inj) 20 mg 1X ONCE 10/24/18 18:15 10/24/18 18:16 DC 10/24/18 18:09 20 MG Info (Anti-Coagulation Monitoring By Pharmacy) 1 each PRN DAILY PRN 10/25/18 10:30 10/25/18 11:53 1 EACH Info (PHARMACY MONITORING -- do not chart) 1 each PRN DAILY PRN 10/25/18 10:30 Insulin Human Lispro (HumaLOG) 0-5 UNITS TIDWMEALS 10/25/18 08:00 Insulin Human Regular (HumuLIN R VIAL) 10 unit 1X ONCE 10/24/18 16:15 10/24/18 16:19 DC 10/24/18 16:36 10 UNIT Lidocaine HCl (Lidocaine 1% 20ml Vial) 20 ml STK-MED ONCE 10/26/18 10:03 10/26/18 10:05 DC Nitroglycerin (Nitro-Bid Oint) 1 inch 1X ONCE 10/24/18 17:15 10/24/18 17:16 DC 10/24/18 17:15 1 INCH Ondansetron HCl (Zofran) 4 mg PRN Q8HRS PRN 10/24/18 17:15 10/25/18 17:14 DC Sodium Polystyrene Sulfonate (Kayexalate) 30 gm 1X ONCE 10/24/18 17:15 10/24/18 17:16 DC 10/24/18 17:16 30 GM Sodium Chloride 1,000 ml @ 400 mls/hr Q2H30M PRN 10/25/18 10:19 10/25/18 22:18 DC Lab Laboratory Tests Test 10/25/18 13:40 10/25/18 16:34 10/25/18 16:45 10/25/18 20:26 Glucose (Fingerstick) 99 mg/dL (70-99) 145 mg/dL (70-99) 112 mg/dL (70-99) Heparin Anti-Xa Act, Unfractionated 0.57 IU/mL (0.30-0.70) Test 10/25/18 23:10 10/26/18 05:15 10/26/18 08:03 Heparin Anti-Xa Act, Unfractionated 0.58 IU/mL (0.30-0.70) 0.35 IU/mL (0.30-0.70) White Blood Count 6.6 x10^3/uL (4.0-11.0) Red Blood Count 3.48 x10^6/uL (3.50-5.40) Hemoglobin 10.2 g/dL (12.0-15.5) Hematocrit 32.3 % (36.0-47.0) Mean Corpuscular Volume 93 fL (79-100) Mean Corpuscular Hemoglobin 29 pg (25-35) Mean Corpuscular Hemoglobin Concent 32 g/dL (31-37) Red Cell Distribution Width 17.4 % (11.5-14.5) Platelet Count 316 x10^3/uL (140-400) Neutrophils (%) (Auto) 69 % (31-73) Lymphocytes (%) (Auto) 16 % (24-48) Monocytes (%) (Auto) 13 % (0-9) Eosinophils (%) (Auto) 1 % (0-3) Basophils (%) (Auto) 1 % (0-3) Neutrophils # (Auto) 4.6 x10^3uL (1.8-7.7) Lymphocytes # (Auto) 1.1 x10^3/uL (1.0-4.8) Monocytes # (Auto) 0.9 x10^3/uL (0.0-1.1) Eosinophils # (Auto) 0.1 x10^3/uL (0.0-0.7) Basophils # (Auto) 0.1 x10^3/uL (0.0-0.2) Sodium Level 143 mmol/L (136-145) Potassium Level 4.7 mmol/L (3.5-5.1) Chloride Level 99 mmol/L (98-107) Carbon Dioxide Level 30 mmol/L (21-32) Anion Gap 14 (6-14) Blood Urea Nitrogen 23 mg/dL (7-20) Creatinine 6.5 mg/dL (0.6-1.0) Estimated GFR (Cockcroft-Gault) 7.3 Glucose Level 118 mg/dL (70-99) Calcium Level 9.8 mg/dL (8.5-10.1) Phosphorus Level 6.8 mg/dL (2.6-4.7) Troponin I Quantitative 1.728 ng/mL (0.000-0.055) Albumin 3.3 g/dL (3.4-5.0) Glucose (Fingerstick) 94 mg/dL (70-99) Results All relevant outside records, renal labs, imaging studies, telemetry/EKG's were reviewed. TOMMY LUND MD Oct 26, 2018 10:32
[2018-10-26] MEDS ORDERED: IODIXANOL 320 MG/ML 100 ML VIAL. ONE (10:52)
[2018-10-26] MEDS ORDERED: MIDAZOLAM HCL/PF 2 MG/2 ML VIAL. ONE (11:18)
[2018-10-26] MEDS ORDERED: fentaNYL PF VIAL 100 MCG/2 ML VIAL ONE (11:18)
[2018-10-26] MEDS: ANTI-COAG MONITOR BY PHARMACY. MC PRN (11:24)
[2018-10-26] MEDS ORDERED: fentaNYL PF VIAL 100 MCG/2 ML VIAL IV ONE (12:00)
[2018-10-26] MEDS ORDERED: MIDAZOLAM HCL/PF 2 MG/2 ML VIAL. IV ONE (12:00)
[2018-10-26] MEDS ORDERED: IODIXANOL 320 MG/ML 100 ML VIAL. IART ONE (12:00)
[2018-10-26] MEDS ORDERED: LIDOCAINE 2% 20 ML VIAL. IJ ONE (12:00)
--- NOTE | 2018-10-26 12:09 | PDOC ---
MODERATE SEDATION ASSESSMENT RISKS/ALTERNATIVES Risks/Alternatives Risks and alternatives of this type of sedation and procedure discussed with: RISK/ALTERNATIVES: Patient H & P ON CHART H & P H & P on chart and reviewed for co-morbid conditions and appropriate labs. H&P ON CHART: Yes STATUS PREG STATUS ASSESSED: N/A MEDS/ALLERGIES REVIEWED Meds/Allergies Reviewed Medications and Allergies including time and route of recently administered narcotics and sedatives. MEDS/ALLERGIES REVIEWED: Yes ASA RATING ASA RATING: III AIRWAY ASSESSMENT Airway Assessment Airway patency, oral function limitations, presence of caps, crowns, dentures, partials, and ability to extend neck assessed. AIRWAY ASSESSMENT: Yes MALLAMPATI SCORE MALLAMPATI SCORE: II PRE-SEDATION ASSESSMENT PRE-SEDATION ASSESSMENT: Yes MADDY LERMA MD Oct 26, 2018 12:09
[2018-10-26] MEDS ORDERED: NITROGLYCERIN SUBLINGUAL 0.4 MG BOTTLE OF 25. SL PRN (12:15)
[2018-10-26] MEDS ORDERED: 0.9 % SODIUM CHLORIDE 10 ML DISP.SYRIN. IV PRN (12:15)
--- NOTE | 2018-10-26 12:49 | CARD ---
MR#: [id number] Date of Study: 10/26/2018 Ordering Physician: NICHOL PINEDA, Referring Physician: SHAVON ORTEGA, Tech: RT Cookie (Josselyn) REMEDI[employer] APPROVED REPORT Technologist: RT Cookie (R) REMEDIOS Nurse: Juana Arana R.N. Procedure(s) performed: Left heart catheterization and selective coronary angiography Moderate sedation: 41 mins CFS: 6 INDICATION The indication(s) include : non-STEMI . PROCEDURE NARRATIVE After explaining the risks, benefits and alternative options, informed consent was obtained from nita ent. Patient was brought to the cardiac Grounds Restoration Specialist and her left groin was prepped and draped in the usu al fashion. 20 mL of 2% lidocaine was infiltrated into the skin and subcutaneous tissues for local an esthesia. Arterial access was obtained in the left common femoral artery and a 6 [place] 23 cm bright tip sheath was inserted. 6 [place] JL4 and 6 [place] JR4 catheters placed to perform selective angiogra phy of the left and right coronary arteries. LVEDP and transaortic gradients were measured. 6 [place] pigtail catheter was then used to perform aortogram with runoff that would be reported separately. Riley huang tolerated the procedure well. Hemostasis was achieved using mynx closure device. There were no immediate complications. FINDINGS 1. Hemodynamics: Elevated left ventricle end-diastolic pressure of 31 mmHg. No pullback gradient ac ross the aortic valve. 2. Coronary angiography: a. The left main coronary artery arose from the left sinus of Valsalva, gave rise to the left anteri or descending and left circumflex arteries and showed 70% calcified stenosis involving the distal seg ment. b. The left anterior descending artery did not show any significant stenosis. c. The left circumflex artery showed 95% calcified stenosis involving the proximal to midsegment, 80 % stenosis involving the midsegment and 100% chronic total occlusion in the distal segment. d. The right coronary artery was a dominant vessel arising from the right sinus of Valsalva that chantelle wed heavily calcified 95% stenosis involving the ostial and proximal segments, 70% stenosis involving the proximal to midsegment. Conclusion Severe three-vessel coronary artery disease Recommendations Cardiothoracic surgery consultation for possible coronary artery bypass surgery Signed by : Jack Rivas, Electronically Approved : 10/26/2018 12:46:54
--- NOTE | 2018-10-26 13:04 | CARD ---
MR#: [id number] Date of Study: 10/26/2018 Ordering Physician: NICHOL PINEDA, Referring Physician: SHAVON ORTEGA, Tech: KEVEN PLAZAATUL RTR APPROVED REPORT Patient StatusIN-PATIENT Reptile Farmer: KEVEN LEYVA RTR Procedure(s) performed: Aortogram with bilateral lower extremity runoff Moderate sedation: 41 mins CSHA:6 INDICATION FOR PROCEDURE The indication(s) include : Peripheral vascular disease with claudication. PROCEDURE NARRATIVE After explaining the risks, benefits and alternative options, informed consent was obtained from nita ent. Patient was brought to the cardiac Box Feeder and her left groin was prepped and draped in the usu al fashion. 20 mL of 2% lidocaine was infiltrated into the skin and subcutaneous tissues for local an esthesia. Arterial access was obtained the left common femoral artery and a 6 [place] sheath was inser eran. Selective coronary angiography was performed that will be reported separately. 5 [place] pigtail catheter was then positioned in the distal descending aorta and aortogram with bilateral lower extrem ity runoff was performed. Patient tolerated the procedure well. Hemostasis was achieved using mynx cl osure device per there were no immediate complications. FINDINGS 1. No significant stenosis involving the distal descending aorta 2. 60% stenosis involving the distal segment of left common iliac artery. No significant stenosis in volving the right common iliac artery. 3. The right external iliac artery showed 80% stenosis in the proximal segment. The left external il iac artery did not show any significant stenosis. 4. No significant stenosis involving bilateral common femoral arteries. 5. The right superficial femoral artery showed long 90-95% heavily calcified stenosis involving the proximal, mid and mid to distal segments. The left superficial femoral artery showed long chronic tot al occlusion involving the proximal and mid segments with distal reconstitution from collaterals. 6. No significant stenosis involving bilateral popliteal arteries. 7. There appears to be at least 2 vessel runoff proximally both lower extremities (anterior tibial a nd peroneal arteries). The mid to distal segments were not well visualized. Conclusion Severe bilateral lower extremity peripheral vascular disease Recommendations CTA to better visualize below the knee vessels followed by vascular surgery team consultation for pos sible surgical revascularization. Signed by : Jack Rivas, Electronically Approved : 10/26/2018 13:01:54
[2018-10-26] MEDS: CINACALCET HCL 30 MG TABLET PO SCH (14:34)
[2018-10-26] MEDS: ASPIRIN ENTERIC COATED 81 MG TABLET.DR. PO SCH (14:34)
[2018-10-26] MEDS: FUROSEMIDE 40 MG TABLET. PO SCH (14:35)
[2018-10-26] MEDS: FERROUS SULFATE 325 MG TABLET. PO SCH (14:35)
--- NOTE | 2018-10-26 15:33 | NUR ---
SS following for discharge planning. SS reviewed pt chart. Pt is from home. PT/OT currently on hold. Pt received cardiac cath today. No discharge needs noted at this time. SS will continue to follow for pending discharge needs.
--- NOTE | 2018-10-26 16:02 | PDOC2 ---
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 She is known to have peripheral vascular disease. She was also found to have elevated cardiac enzymes. She underwent coronary angiography which demonstrated severe three-vessel coronary artery disease. As consulted to consider the patient for surgical coronary revascularization. Past Medical History Cardiovascular: CAD, HTN, Hyperlipidemia, Other (bradycardia; lymphedema; PAD) Pulmonary: Pulmonary embolus CENTRAL NERVOUS SYSTEM: Other GI: No pertinent hx Heme/Onc: Anemia NOS Hepatobiliary: No pertinent hx Psych: No pertinent hx Musculoskeletal: Osteoarthritis Rheumatologic: No pertinent hx Infectious disease: No pertinent hx Renal/: Chronic renal failure Endocrine: Diabetes (2) Past Surgical History Past Surgical History: Other (LAV fistula dialysis, oopherectomy) Family History Family History: Family History Unknown Social History No ALCOHOL: none Drugs: None Lives: with Family Current Problem List Problem List Problems Medical Problems: (1) Hyperkalemia Status: Acute Current Medications Current Medications Current Medications Aspirin (Margie Aspirin) 325 mg 1X ONCE PO Last administered on 10/24/18at 14:51 ; Start 10/24/18 at 14:45; Stop 10/24/18 at 14:46; Status DC Fentanyl Citrate (Fentanyl 2ml Vial) 50 mcg 1X ONCE IV Last administered on 10/24/18at 16:34; Start 10/24/18 at 15:00; Stop 10/24/18 at 15:01; Status DC Bumetanide (Bumex) 1 mg 1X ONCE IV Last administered on 10/24/18at 16:35; Start 10/24/18 at 16:19; Stop 10/24/18 at 16:20; Status DC Calcium Gluconate (Calcium Gluconate) 1,000 mg 1X ONCE IVP Last administered on 10/24/18at 16:34; Start 10/24/18 at 16:15; Stop 10/24/18 at 16:19; Status DC Insulin Human Regular (HumuLIN R VIAL) 10 unit 1X ONCE IV Last administered on 10/24/18 16:36; Start 10/24/18 at 16:15; Stop 10/24/18 at 16:19; Status DC Dextrose (Dextrose 50%-Water Syringe) 25 gm 1X ONCE IV Last administered on 16:35; Start 10/24/18 at 16:15; Stop 10/24/18 at 16:19; Status DC Nitroglycerin (Nitro-Bid Oint) 1 inch 1X ONCE TP Last administered on 17:15; Start 10/24/18 at 17:15; Stop 10/24/18 at 17:16; Status DC Sodium Polystyrene Sulfonate (Kayexalate) 30 gm 1X ONCE PO Last administered on 10/24/18 17:16; Start 10/24/18 at 17:15; Stop 10/24/18 at 17:16; Status DC Ondansetron HCl (Zofran) 4 mg PRN Q8HRS PRN IV NAUSEA/VOMITING; Start 10/24/18 at 17:15; Stop 10/25/18 at 17:14; Status DC Fentanyl Citrate (Fentanyl 2ml Vial) 50 mcg Q2HR PRN IV PAIN Last administered on 10/25/18 10:47; Start 10/24/18 at 17:15; Stop 10/25/18 at 17:14; Status DC Insulin Human Lispro (HumaLOG) 0-5 UNITS TIDWMEALS SQ ; Start 10/25/18 at 08:00 Dextrose (Dextrose 50%-Water Syringe) 12.5 gm PRN Q15MIN PRN IV SEE COMMENTS; Start 10/24/18 at 17:30 Dextrose (Dextrose 50%-Water Syringe) 25 gm 1X ONCE IV Last administered on 18:02; Start 10/24/18 at 18:00; Stop 10/24/18 at 18:04; Status DC Hydralazine HCl (Apresoline Inj) 20 mg 1X ONCE IVP Last administered on 18:09; Start 10/24/18 at 18:15; Stop 10/24/18 at 18:16; Status DC Ceftriaxone Sodium (Rocephin) 1 gm 1X ONCE IVP Last administered on 10/24/18 20:22; Start 10/24/18 at 19:30; Stop 10/24/18 at 19:31; Status DC Heparin Sodium (Porcine) (Heparin Sodium) 5,000 unit Q8HRS SQ Last administered on 10/25/18at 05:46; Start 10/24/18 at 22:00; Stop 10/25/18 at 10:18; Status DC Albuterol Sulfate (Ventolin Neb Soln) 2.5 mg PRN Q6HRS PRN INH SHORTNESS OF BREATH; Start 10/24/18 at 19:45 Amlodipine Besylate (Norvasc) 10 mg PRN DAILY PRN PO HYPERTENSION, SEE COMMENTS ; Start 10/24/18 at 19:45 Aspirin (Ecotrin) 81 mg DAILY PO Last administered on 10/26/18at 14:34; Start 10/25/18 at 09:00 Cinacalcet (Sensipar) 30 mg DAILYWSUP PO Last administered on 10/26/18at 14:34; Start 10/25/18 at 17:00 Clonidine HCl (Catapres Tts-2) 1 patch WEEKLY TD ; Start 10/31/18 at 09:00 Clonidine HCl (Catapres) 0.2 mg BID PO ; Start 10/24/18 at 21:00; Stop 10/24/18 at 21:00; Status DC Doxycycline Hyclate (Vibra-Tab) 100 mg BID PO ; Start 10/24/18 at 21:00; Stop 10/24/18 at 21:00; Status DC Ferrous Sulfate (Feosol) 325 mg DAILY PO Last administered on 10/26/18at 14:35; Start 10/25/18 at 09:00 Furosemide (Lasix) 40 mg DAILY PO Last administered on 10/26/18at 14:35; Start at 09:00 Calcium Acetate (Phoslo) 1,334 mg TIDWMEALS PO Last administered on 10/26/18at 14 :35; Start 10/25/18 at 08:00 Aspirin (Ecotrin) 325 mg 1X ONCE PO Last administered on 10/25/18at 10:35; Start 10/25/18 at 10:30; Stop 10/25/18 at 10:31; Status DC Heparin Sodium/ Dextrose 500 ml @ 0 mls/hr CONT PRN IV SEE I/O RECORD; Start at 10:15; Status UNV Heparin Sodium/ Dextrose 500 ml @ 0 mls/hr CONT PRN IV SEE I/O RECORD Last administered on 10/25/18at 10:41; Start 10/25/18 at 10:30 Heparin Sodium (Porcine) (Heparin Sodium) 2,300 unit PRN Q6HRS PRN IV FOR UFH LEVEL LESS THAN 0.2 Last administered on 10/25/18at 10:42; Start 10/25/18 at 10:30 Sodium Chloride 1,000 ml @ 1,000 mls/hr Q1H PRN IV hypotension; Start 10/25/18 at 10:19; Stop 10/25/18 at 16:18; Status DC Sodium Chloride 1,000 ml @ 400 mls/hr Q2H30M PRN IV PATENCY; Start 10/25/18 at 10:19; Stop 10/25/18 at 22:18; Status DC Info (PHARMACY MONITORING -- do not chart) 1 each PRN DAILY PRN MC SEE COMMENTS ; Start 10/25/18 at 10:30 Info (Anti-Coagulation Monitoring By Pharmacy) 1 each PRN DAILY PRN MC SEE COMMENTS Last administered on 10/26/18at 11:24; Start 10/25/18 at 10:30 Atorvastatin Calcium (Lipitor) 10 mg QHS PO Last administered on 10/25/18at 20:44 ; Start 10/25/18 at 21:00 Fentanyl Citrate (Fentanyl 2ml Vial) 50 mcg PRN Q2HR PRN IV PAIN Last administered on 10/26/18at 15:44; Start 10/26/18 at 08:30 Lidocaine HCl (Lidocaine 1% 20ml Vial) 20 ml STK-MED ONCE .ROUTE ; Start at 10:03; Stop 10/26/18 at 10:05; Status DC Heparin Sodium/ Sodium Chloride 500 ml @ As Directed STK-MED ONCE .ROUTE ; Start 10/26/18 at 10:03; Stop 10/26/18 at 10:05; Status DC Iodixanol (Visipaque 320) 100 ml STK-MED ONCE .ROUTE ; Start 10/26/18 at 10:52; Stop 10/26/18 at 10:54; Status DC Midazolam HCl (Versed) 2 mg STK-MED ONCE .ROUTE ; Start 10/26/18 at 11:18; Stop 10/26/18 at 11:20; Status DC Fentanyl Citrate (Fentanyl 2ml Vial) 100 mcg STK-MED ONCE .ROUTE ; Start at 11:18; Stop 10/26/18 at 11:20; Status DC Heparin Sodium/ Sodium Chloride (HEPARIN for ARTERIAL LINE FLUSH) 1,000 unit 1X ONCE IART Last administered on 10/26/18at 12:01; Start 10/26/18 at 12:00; Stop 10/26/18 at 12:01; Status DC Midazolam HCl (Versed) 1 mg 1X ONCE IV Last administered on 10/26/18at 12:01; Start 10/26/18 at 12:00; Stop 10/26/18 at 12:01; Status DC Fentanyl Citrate (Fentanyl 2ml Vial) 50 mcg 1X ONCE IV Last administered on 10/26/18at 12:02; Start 10/26/18 at 12:00; Stop 10/26/18 at 12:01; Status DC Iodixanol (Visipaque 320) 117 ml 1X ONCE IART Last administered on 10/26/18at 12 :01; Start 10/26/18 at 12:00; Stop 10/26/18 at 12:01; Status DC Lidocaine HCl 18 ml 1X ONCE IJ Last administered on 10/26/18at 11:22; Start 10/26 at 12:00; Stop 10/26/18 at 12:01; Status DC Sodium Chloride (Normal Saline Flush) 3 ml QSHIFT PRN IV AFTER MEDS AND BLOOD DRAWS; Start 10/26/18 at 12:15 Nitroglycerin (Nitrostat) 0.4 mg PRN Q5MIN PRN SL CHEST PAIN; Start 10/26/18 at 12:15 Active Scripts Active Proair Hfa Inhaler (Albuterol Sulfate) 8.5 Gm Hfa.aer.ad 1 Puff INH PRN Q6HRS PRN 14 Days Doxycycline Hyclate 100 Mg Tablet 100 Mg PO BID 7 Days Reported Catapres-Tts 2 (Clonidine) 1 Each Patch.tdwk 1 Each TD WEEKLY Clonidine Hcl 0.2 Mg Tablet 0.2 Mg PO BID Dialyvite Blyn D Tablet (Multivitamin, Min Cmb#25/Fa/D3) 1 Each Tablet 1 Each PO DAILY Renvela (Sevelamer Carbonate) 800 Mg Tablet 2 Tab PO TIDWMEALHC Sensipar (Cinacalcet Hcl) 30 Mg Tablet 1 Tab PO DAILYWSUP Calcium Acetate 667 Mg Tablet 1,334 Mg PO TIDWMEALS Lovastatin 10 Mg Tablet 10 Mg PO HS Losartan Potassium 100 Mg Tablet 100 Mg PO DAILY Amlodipine Besylate 10 Mg Tablet 10 Mg PO PRN DAILY PRN Ferrous Sulfate 325 Mg Tablet 1 Tab PO DAILY Lasix (Furosemide) 40 Mg Tablet 1 Tab PO DAILY Aspir 81 (Aspirin) 81 Mg Tablet.dr 1 Tab PO DAILY Allergies Allergies: Coded Allergies: No Known Drug Allergies (Unverified , 07/14/17) ROS General: YES: Fatigue; No: Chills, Night Sweats, Malaise, Appetite PSYCHOLOGICAL ROS: YES: Anxiety; No: Behavioral Disorder, Concentration difficultie, Decreased libido, Depression, Disorientation, Hallucinations, Hostility, Irritablity, Memory difficulties, Mood Swings, Obsessive thoughts, Physical abuse, Sexual abuse, Sleep disturbances, Suicidal ideation Eyes: No Blurry vision, No Decreased vision, No Double vision, No Dry eyes, No Excessive tearing, No Eye Pain, No Itchy Eyes, No Loss of vision, No Photophobia , No Scotomata, No Uses contacts, No Uses glasses HEENT: No: Heacaches, Visual Changes, Hearing change, Nasal congestion, Nasal discharge, Oral lesions, Sinus pain, Sore Throat, Epistaxis, Sneezing, Snoring, Tinnitus, Vertigo, Vocal changes ALLERGY AND IMMUNOLOGY: No: Hives, Insect Bite Sensitivity, Itchy/Watery Eyes, Nasal Congestion, Post Nasal Drip, Seasonal Allergies Hematological and Lymphatic: No: Bleeding Problems, Blood Clots, Blood Transfusions, Brusing, Night Sweats, Pallor, Swollen Lymph Nodes ENDOCRINE: No: Breast Changes, Galactorrhea, Hair Pattern Changes, Hot Flashes , Malaise/lethargy, Mood Swings, Palpitations, Polydipsia/polyuria, Skin Changes , Temperature Intolerance, Unexpected Weight Changes Breast: No New/Changing Breast Lumps, No Nipple changes, No Nipple discharge Respiratory: YES: Shortness of breath; No: Cough, Hemoptysis, Orthopnea, Pleuritic Pain, SOB with excertion, Sputum Changes, Stridor, Tachypnea, Wheezing Cardiovascular: yes Chest Pain; No Palpitations, No Orthopnea, No Paroxysmal Noc. Dyspnea, No Edema, No Lt Headedness Gastrointestinal: No Nausea, No Vomiting, No Abdominal Pain, No Diarrhea, No Constipation, No Melena, No Hematochezia Genitourinary: No Dysuria, No Frequency, No Incontinence, No Hematuria, No Retention, No Discharge, No Urgency, No Pain, No Flank Pain Musculoskeletal: Yes Muscle Pain; No Gait Disturbance, No Joint Pain, No Joint Stiffness, No Joint Swelling, No Muscular Weakness, No Pain In:, No Swelling In: Neurological: No Behavorial Changes, No Bowel/Bladder ControlChng, No Confusion , No Dizziness, No Gait Disturbance, No Headaches, No Impaired Coord/balance, No Memory Loss, No Numbness/Tingling, No Seizures, No Speech Problems, No Tremors, No Visual Changes, No Weakness Skin: No Dry Skin, No Eczema, No Hair Changes, No Lumps, No Mole Changes, No Mottling, No Nail Changes, No Pruritus, No Rash, No Skin Lesion Changes, No Acne Physical Exam General: Alert, Oriented X3, No acute distress HEENT: Atraumatic, PERRLA Lungs: Clear to auscultation Heart: Regular rate, Normal S1, Normal S2 Abdomen: Soft, No tenderness Skin: No significant lesion Neuro: Normal speech, Strength at 5/5 X4 ext, Normal tone, Sensation intact, Cranial nerves 3-12 NL Psych/Mental Status: Mood NL MUSCULOSKELETAL: No deformity Vitals VITALS Vital Signs Date Time Temp Pulse Resp B/P (MAP) Pulse Ox O2 Delivery O2 Flow Rate FiO2 10/26/18 15:44 20 94 Room Air 2.0 10/26/18 15:00 93 131/62 (85) 10/26/18 07:00 97.5 97.5 Labs Labs Laboratory Tests Test 10/24/18 17:57 10/24/18 18:25 10/24/18 20:20 10/24/18 20:22 Glucose (Fingerstick) 28 mg/dL (70-99) 77 mg/dL (70-99) 104 mg/dL (70-99) Troponin I Quantitative 0.475 ng/mL (0.000-0.055) Test 10/24/18 23:00 10/25/18 03:00 10/25/18 08:08 10/25/18 13:40 Lactic Acid Level 2.1 mmol/L (0.4-2.0) 1.8 mmol/L (0.4-2.0) White Blood Count 7.6 x10^3/uL (4.0-11.0) Red Blood Count 3.40 x10^6/uL (3.50-5.40) Hemoglobin 9.9 g/dL (12.0-15.5) Hematocrit 31.2 % (36.0-47.0) Mean Corpuscular Volume 92 fL (79-100) Mean Corpuscular Hemoglobin 29 pg (25-35) Mean Corpuscular Hemoglobin Concent 32 g/dL (31-37) Red Cell Distribution Width 17.2 % (11.5-14.5) Platelet Count 302 x10^3/uL (140-400) Neutrophils (%) (Auto) 77 % (31-73) Lymphocytes (%) (Auto) 12 % (24-48) Monocytes (%) (Auto) 10 % (0-9) Eosinophils (%) (Auto) 0 % (0-3) Basophils (%) (Auto) 1 % (0-3) Neutrophils # (Auto) 5.9 x10^3uL (1.8-7.7) Lymphocytes # (Auto) 0.9 x10^3/uL (1.0-4.8) Monocytes # (Auto) 0.7 x10^3/uL (0.0-1.1) Eosinophils # (Auto) 0.0 x10^3/uL (0.0-0.7) Basophils # (Auto) 0.1 x10^3/uL (0.0-0.2) Sodium Level 143 mmol/L (136-145) Potassium Level 5.7 mmol/L (3.5-5.1) Chloride Level 100 mmol/L (98-107) Carbon Dioxide Level 29 mmol/L (21-32) Anion Gap 14 (6-14) Blood Urea Nitrogen 43 mg/dL (7-20) Creatinine 9.6 mg/dL (0.6-1.0) Estimated GFR (Cockcroft-Gault) 4.7 Glucose Level 99 mg/dL (70-99) Calcium Level 9.6 mg/dL (8.5-10.1) Phosphorus Level 7.3 mg/dL (2.6-4.7) Troponin I Quantitative 1.128 ng/mL (0.000-0.055) Albumin 3.2 g/dL (3.4-5.0) Triglycerides Level 65 mg/dL (0-150) Cholesterol Level 166 mg/dL (0-200) LDL Cholesterol, Calculated 94 mg/dL (0-100) VLDL Cholesterol, Calculated 13 mg/dL (0-40) Non-HDL Cholesterol Calculated 107 mg/dL (0-129) HDL Cholesterol 59 mg/dL (40-60) Cholesterol/HDL Ratio 2.8 Glucose (Fingerstick) 77 mg/dL (70-99) 99 mg/dL (70-99) Test 10/25/18 16:34 10/25/18 16:45 10/25/18 20:26 10/25/18 23:10 Glucose (Fingerstick) 145 mg/dL (70-99) 112 mg/dL (70-99) Heparin Anti-Xa Act, Unfractionated 0.57 IU/mL (0.30-0.70) 0.58 IU/mL (0.30-0.70) Test 10/26/18 05:15 10/26/18 08:03 White Blood Count 6.6 x10^3/uL (4.0-11.0) Red Blood Count 3.48 x10^6/uL (3.50-5.40) Hemoglobin 10.2 g/dL (12.0-15.5) Hematocrit 32.3 % (36.0-47.0) Mean Corpuscular Volume 93 fL (79-100) Mean Corpuscular Hemoglobin 29 pg (25-35) Mean Corpuscular Hemoglobin Concent 32 g/dL (31-37) Red Cell Distribution Width 17.4 % (11.5-14.5) Platelet Count 316 x10^3/uL (140-400) Neutrophils (%) (Auto) 69 % (31-73) Lymphocytes (%) (Auto) 16 % (24-48) Monocytes (%) (Auto) 13 % (0-9) Eosinophils (%) (Auto) 1 % (0-3) Basophils (%) (Auto) 1 % (0-3) Neutrophils # (Auto) 4.6 x10^3uL (1.8-7.7) Lymphocytes # (Auto) 1.1 x10^3/uL (1.0-4.8) Monocytes # (Auto) 0.9 x10^3/uL (0.0-1.1) Eosinophils # (Auto) 0.1 x10^3/uL (0.0-0.7) Basophils # (Auto) 0.1 x10^3/uL (0.0-0.2) Heparin Anti-Xa Act, Unfractionated 0.35 IU/mL (0.30-0.70) Sodium Level 143 mmol/L (136-145) Potassium Level 4.7 mmol/L (3.5-5.1) Chloride Level 99 mmol/L (98-107) Carbon Dioxide Level 30 mmol/L (21-32) Anion Gap 14 (6-14) Blood Urea Nitrogen 23 mg/dL (7-20) Creatinine 6.5 mg/dL (0.6-1.0) Estimated GFR (Cockcroft-Gault) 7.3 Glucose Level 118 mg/dL (70-99) Calcium Level 9.8 mg/dL (8.5-10.1) Phosphorus Level 6.8 mg/dL (2.6-4.7) Troponin I Quantitative 1.728 ng/mL (0.000-0.055) Albumin 3.3 g/dL (3.4-5.0) Glucose (Fingerstick) 94 mg/dL (70-99) Laboratory Tests Test 10/25/18 16:34 10/25/18 16:45 10/25/18 20:26 10/25/18 23:10 Glucose (Fingerstick) 145 mg/dL (70-99) 112 mg/dL (70-99) Heparin Anti-Xa Act, Unfractionated 0.57 IU/mL (0.30-0.70) 0.58 IU/mL (0.30-0.70) Test 10/26/18 05:15 10/26/18 08:03 White Blood Count 6.6 x10^3/uL (4.0-11.0) Red Blood Count 3.48 x10^6/uL (3.50-5.40) Hemoglobin 10.2 g/dL (12.0-15.5) Hematocrit 32.3 % (36.0-47.0) Mean Corpuscular Volume 93 fL (79-100) Mean Corpuscular Hemoglobin 29 pg (25-35) Mean Corpuscular Hemoglobin Concent 32 g/dL (31-37) Red Cell Distribution Width 17.4 % (11.5-14.5) Platelet Count 316 x10^3/uL (140-400) Neutrophils (%) (Auto) 69 % (31-73) Lymphocytes (%) (Auto) 16 % (24-48) Monocytes (%) (Auto) 13 % (0-9) Eosinophils (%) (Auto) 1 % (0-3) Basophils (%) (Auto) 1 % (0-3) Neutrophils # (Auto) 4.6 x10^3uL (1.8-7.7) Lymphocytes # (Auto) 1.1 x10^3/uL (1.0-4.8) Monocytes # (Auto) 0.9 x10^3/uL (0.0-1.1) Eosinophils # (Auto) 0.1 x10^3/uL (0.0-0.7) Basophils # (Auto) 0.1 x10^3/uL (0.0-0.2) Heparin Anti-Xa Act, Unfractionated 0.35 IU/mL (0.30-0.70) Sodium Level 143 mmol/L (136-145) Potassium Level 4.7 mmol/L (3.5-5.1) Chloride Level 99 mmol/L (98-107) Carbon Dioxide Level 30 mmol/L (21-32) Anion Gap 14 (6-14) Blood Urea Nitrogen 23 mg/dL (7-20) Creatinine 6.5 mg/dL (0.6-1.0) Estimated GFR (Cockcroft-Gault) 7.3 Glucose Level 118 mg/dL (70-99) Calcium Level 9.8 mg/dL (8.5-10.1) Phosphorus Level 6.8 mg/dL (2.6-4.7) Troponin I Quantitative 1.728 ng/mL (0.000-0.055) Albumin 3.3 g/dL (3.4-5.0) Glucose (Fingerstick) 94 mg/dL (70-99) Assessment/Plan Assessment/Plan 88-year-old female with 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 She is known to have peripheral vascular disease. She was also found to have elevated cardiac enzymes. She underwent coronary angiography which demonstrated severe three-vessel coronary artery disease. 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 Nevertheless, the patient and her family are not interested in open heart surgery. They are not interested in any intervention and prefer to stay on medical management. Given her advanced age and her significant comorbidities I don't think that this is unreasonable. Recommend medical management DAVIN MENDES MD Oct 26, 2018 16:02
[2018-10-26] MEDS: ATORVASTATIN CALCIUM 10 MG TABLET. PO SCH (23:02)
[2018-10-27 03:18] VITALS: BP 119/49
[2018-10-27 07:00] VITALS: BP 123/46
[2018-10-27 07:06] LABS: BASO % 1 % (0-3); EOS # 0.1 x10^3/uL (0.0-0.7); EOS % 2 % (0-3); HEMATOCRIT 32.8 % (36.0-47.0); HEMOGLOBIN 10.5 g/dL (12.0-15.5); LYMPH # 0.7 x10^3/uL (1.0-4.8); LYMPH % 11 % (24-48); MEAN CORPUSCULAR HEMOGLOBIN 30 pg (25-35); MEAN CORPUSCULAR HGB CONC 32 g/dL (31-37); MEAN CORPUSCULAR VOLUME 93 fL (79-100); MONO # 0.8 x10^3/uL (0.0-1.1); MONO % 13 % (0-9); NEUT # 4.6 x10^3uL (1.8-7.7); NEUT % 73 % (31-73); PLATELET COUNT 301 x10^3/uL (140-400); RED BLOOD COUNT 3.53 x10^6/uL (3.50-5.40); RED CELL DISTRIBUTION WIDTH 16.9 % (11.5-14.5); WHITE BLOOD COUNT 6.3 x10^3/uL (4.0-11.0)
[2018-10-27 07:19] LABS: ALBUMIN 3.2 g/dL (3.4-5.0); CALCIUM 9.4 mg/dL (8.5-10.1); CREATININE 8.3 mg/dL (0.6-1.0); GFR 5.5; PHOSPHORUS 7.4 mg/dL (2.6-4.7); POTASSIUM 4.8 mmol/L (3.5-5.1)
--- NOTE | 2018-10-27 07:52 | PDOC ---
PROGRESS NOTES Chief Complaint Chief Complaint Edema of both lower legs, right sided CHF, Diastolic CHF, Mild pulmonary vascular congestion Elevated troponin i= .57 Superficial cellulitis both lower legs ESRD on dialysis Hyperkalemia Secondary pulmonary hypertension Anemia PVD Morbid obesity COPD Rt leg chronic wound Moderate diffuse arterial disease of the left lower extremity without any focal high-grade stenosis. 11/05/2017 Extensive coronary artery calcification by ct 2014 DIABETES History of Present Illness History of Present Illness 88 yr old AA female admitted with bilateral leg edema, superficial wounds both legs, elevated troponin i, hyperkalemia, known ESRD on dialysis, cxr c/w acute CHF. 10/25: Hypoglycemic overnight, corrected. Potassium 6 corrected to 5.7. RLE pain today exquisite to even light touch. She still c/o some SOB and non-productive cough. Troponin over 1 today now. Denies chest pain. Seen on dialysis 10/26: Feeling right leg pain and cold today. NO CP. has mild SOB. She underwent coronary angiography which demonstrated severe three-vessel coronary artery disease as well as femoral arteriogram demonstrating severe bilateral lower extremity peripheral vascular disease. Seen by CT Surgery for her three vessel CAD and recommended medical management 2/2 age and comorbidities, in line with patient wishes. Overnight pain in her RLE was worse and after increase in pain medications she slept well. Seen by vascular surgery this morning, NPO for consideration of right iliac angioplasty vs stenting. She is asking for hot soup and hot coffee. Due for dialysis now. A/P: NSTEMI - with elevation in Trop 1.1, ST depressions, start heparin GTT, consult cardiology Hyperkalemia - to dialysis today. Labs daily Hyperphosphatemia - diet was liberalized to her home diet. Will cont her phoslo Right leg pain - historically with known PVD in left leg. Was going to see vascular surgery later this week, daughter brought her to ED for evaluation more urgently. S/p femoral angiography as above, seen by vascular surgery, hopefully intervention this afternoon ESRD - HD tomorrow Acute on chronic diastolic CHF - UF per nephrology at dialysis DM2 with hypoglycemic episode - adjusted insulin Anemia - of chronic renal disease. monitor FEN - Renal dietNPO heparin gtt FULL CODE Inpatient for NSTEMI, PVD, hyperkalemia Vitals Vitals Vital Signs Date Time Temp Pulse Resp B/P (MAP) Pulse Ox O2 Delivery O2 Flow Rate FiO2 10/27/18 03:18 98.3 90 16 119/49 (72) 94 Room Air 98.3 10/26/18 15:44 2.0 Physical Exam General: Alert, Oriented X3, No acute distress Heart: Regular rate, Normal S1, Normal S2 Lungs: Crackles Abdomen: Soft, No tenderness Extremities: Other (diminished pedal pulses, leg edema 2+ bilateral LE with tenderness, scabbed over wounds to RLE no oozing) Skin: No significant lesion Labs LABS Laboratory Tests Test 10/26/18 08:03 10/26/18 17:14 10/26/18 21:07 10/27/18 06:30 Glucose (Fingerstick) 94 mg/dL (70-99) 131 mg/dL (70-99) 78 mg/dL (70-99) White Blood Count 6.3 x10^3/uL (4.0-11.0) Red Blood Count 3.53 x10^6/uL (3.50-5.40) Hemoglobin 10.5 g/dL (12.0-15.5) Hematocrit 32.8 % (36.0-47.0) Mean Corpuscular Volume 93 fL (79-100) Mean Corpuscular Hemoglobin 30 pg (25-35) Mean Corpuscular Hemoglobin Concent 32 g/dL (31-37) Red Cell Distribution Width 16.9 % (11.5-14.5) Platelet Count 301 x10^3/uL (140-400) Neutrophils (%) (Auto) 73 % (31-73) Lymphocytes (%) (Auto) 11 % (24-48) Monocytes (%) (Auto) 13 % (0-9) Eosinophils (%) (Auto) 2 % (0-3) Basophils (%) (Auto) 1 % (0-3) Neutrophils # (Auto) 4.6 x10^3uL (1.8-7.7) Lymphocytes # (Auto) 0.7 x10^3/uL (1.0-4.8) Monocytes # (Auto) 0.8 x10^3/uL (0.0-1.1) Eosinophils # (Auto) 0.1 x10^3/uL (0.0-0.7) Basophils # (Auto) 0.0 x10^3/uL (0.0-0.2) Sodium Level 138 mmol/L (136-145) Potassium Level 4.8 mmol/L (3.5-5.1) Chloride Level 99 mmol/L (98-107) Carbon Dioxide Level 26 mmol/L (21-32) Anion Gap 13 (6-14) Blood Urea Nitrogen 32 mg/dL (7-20) Creatinine 8.3 mg/dL (0.6-1.0) Estimated GFR (Cockcroft-Gault) 5.5 Glucose Level 111 mg/dL (70-99) Calcium Level 9.4 mg/dL (8.5-10.1) Phosphorus Level 7.4 mg/dL (2.6-4.7) Albumin 3.2 g/dL (3.4-5.0) Assessment and Plan Assessmemt and Plan Problems Medical Problems: (1) Hyperkalemia Status: Acute Comment Review of Relevant I have reviewed the following items vicente (where applicable) has been applied. Labs Laboratory Tests Test 10/25/18 08:08 10/25/18 13:40 10/25/18 16:34 10/25/18 16:45 Glucose (Fingerstick) 77 mg/dL (70-99) 99 mg/dL (70-99) 145 mg/dL (70-99) Heparin Anti-Xa Act, Unfractionated 0.57 IU/mL (0.30-0.70) Test 10/25/18 20:26 10/25/18 23:10 10/26/18 05:15 10/26/18 08:03 Glucose (Fingerstick) 112 mg/dL (70-99) 94 mg/dL (70-99) Heparin Anti-Xa Act, Unfractionated 0.58 IU/mL (0.30-0.70) 0.35 IU/mL (0.30-0.70) White Blood Count 6.6 x10^3/uL (4.0-11.0) Red Blood Count 3.48 x10^6/uL (3.50-5.40) Hemoglobin 10.2 g/dL (12.0-15.5) Hematocrit 32.3 % (36.0-47.0) Mean Corpuscular Volume 93 fL (79-100) Mean Corpuscular Hemoglobin 29 pg (25-35) Mean Corpuscular Hemoglobin Concent 32 g/dL (31-37) Red Cell Distribution Width 17.4 % (11.5-14.5) Platelet Count 316 x10^3/uL (140-400) Neutrophils (%) (Auto) 69 % (31-73) Lymphocytes (%) (Auto) 16 % (24-48) Monocytes (%) (Auto) 13 % (0-9) Eosinophils (%) (Auto) 1 % (0-3) Basophils (%) (Auto) 1 % (0-3) Neutrophils # (Auto) 4.6 x10^3uL (1.8-7.7) Lymphocytes # (Auto) 1.1 x10^3/uL (1.0-4.8) Monocytes # (Auto) 0.9 x10^3/uL (0.0-1.1) Eosinophils # (Auto) 0.1 x10^3/uL (0.0-0.7) Basophils # (Auto) 0.1 x10^3/uL (0.0-0.2) Sodium Level 143 mmol/L (136-145) Potassium Level 4.7 mmol/L (3.5-5.1) Chloride Level 99 mmol/L (98-107) Carbon Dioxide Level 30 mmol/L (21-32) Anion Gap 14 (6-14) Blood Urea Nitrogen 23 mg/dL (7-20) Creatinine 6.5 mg/dL (0.6-1.0) Estimated GFR (Cockcroft-Gault) 7.3 Glucose Level 118 mg/dL (70-99) Calcium Level 9.8 mg/dL (8.5-10.1) Phosphorus Level 6.8 mg/dL (2.6-4.7) Troponin I Quantitative 1.728 ng/mL (0.000-0.055) Albumin 3.3 g/dL (3.4-5.0) Test 10/26/18 17:14 10/26/18 21:07 10/27/18 06:30 Glucose (Fingerstick) 131 mg/dL (70-99) 78 mg/dL (70-99) White Blood Count 6.3 x10^3/uL (4.0-11.0) Red Blood Count 3.53 x10^6/uL (3.50-5.40) Hemoglobin 10.5 g/dL (12.0-15.5) Hematocrit 32.8 % (36.0-47.0) Mean Corpuscular Volume 93 fL (79-100) Mean Corpuscular Hemoglobin 30 pg (25-35) Mean Corpuscular Hemoglobin Concent 32 g/dL (31-37) Red Cell Distribution Width 16.9 % (11.5-14.5) Platelet Count 301 x10^3/uL (140-400) Neutrophils (%) (Auto) 73 % (31-73) Lymphocytes (%) (Auto) 11 % (24-48) Monocytes (%) (Auto) 13 % (0-9) Eosinophils (%) (Auto) 2 % (0-3) Basophils (%) (Auto) 1 % (0-3) Neutrophils # (Auto) 4.6 x10^3uL (1.8-7.7) Lymphocytes # (Auto) 0.7 x10^3/uL (1.0-4.8) Monocytes # (Auto) 0.8 x10^3/uL (0.0-1.1) Eosinophils # (Auto) 0.1 x10^3/uL (0.0-0.7) Basophils # (Auto) 0.0 x10^3/uL (0.0-0.2) Sodium Level 138 mmol/L (136-145) Potassium Level 4.8 mmol/L (3.5-5.1) Chloride Level 99 mmol/L (98-107) Carbon Dioxide Level 26 mmol/L (21-32) Anion Gap 13 (6-14) Blood Urea Nitrogen 32 mg/dL (7-20) Creatinine 8.3 mg/dL (0.6-1.0) Estimated GFR (Cockcroft-Gault) 5.5 Glucose Level 111 mg/dL (70-99) Calcium Level 9.4 mg/dL (8.5-10.1) Phosphorus Level 7.4 mg/dL (2.6-4.7) Albumin 3.2 g/dL (3.4-5.0) Laboratory Tests Test 10/26/18 08:03 10/26/18 17:14 10/26/18 21:07 10/27/18 06:30 Glucose (Fingerstick) 94 mg/dL (70-99) 131 mg/dL (70-99) 78 mg/dL (70-99) White Blood Count 6.3 x10^3/uL (4.0-11.0) Red Blood Count 3.53 x10^6/uL (3.50-5.40) Hemoglobin 10.5 g/dL (12.0-15.5) Hematocrit 32.8 % (36.0-47.0) Mean Corpuscular Volume 93 fL (79-100) Mean Corpuscular Hemoglobin 30 pg (25-35) Mean Corpuscular Hemoglobin Concent 32 g/dL (31-37) Red Cell Distribution Width 16.9 % (11.5-14.5) Platelet Count 301 x10^3/uL (140-400) Neutrophils (%) (Auto) 73 % (31-73) Lymphocytes (%) (Auto) 11 % (24-48) Monocytes (%) (Auto) 13 % (0-9) Eosinophils (%) (Auto) 2 % (0-3) Basophils (%) (Auto) 1 % (0-3) Neutrophils # (Auto) 4.6 x10^3uL (1.8-7.7) Lymphocytes # (Auto) 0.7 x10^3/uL (1.0-4.8) Monocytes # (Auto) 0.8 x10^3/uL (0.0-1.1) Eosinophils # (Auto) 0.1 x10^3/uL (0.0-0.7) Basophils # (Auto) 0.0 x10^3/uL (0.0-0.2) Sodium Level 138 mmol/L (136-145) Potassium Level 4.8 mmol/L (3.5-5.1) Chloride Level 99 mmol/L (98-107) Carbon Dioxide Level 26 mmol/L (21-32) Anion Gap 13 (6-14) Blood Urea Nitrogen 32 mg/dL (7-20) Creatinine 8.3 mg/dL (0.6-1.0) Estimated GFR (Cockcroft-Gault) 5.5 Glucose Level 111 mg/dL (70-99) Calcium Level 9.4 mg/dL (8.5-10.1) Phosphorus Level 7.4 mg/dL (2.6-4.7) Albumin 3.2 g/dL (3.4-5.0) Medications Current Medications Aspirin (Margie Aspirin) 325 mg 1X ONCE PO Last administered on 10/24/18 14:51 ; Start 10/24/18 at 14:45; Stop 10/24/18 at 14:46; Status DC Fentanyl Citrate (Fentanyl 2ml Vial) 50 mcg 1X ONCE IV Last administered on 16:34; Start 10/24/18 at 15:00; Stop 10/24/18 at 15:01; Status DC Bumetanide (Bumex) 1 mg 1X ONCE IV Last administered on 10/24/18 16:35; Start 10/24/18 at 16:19; Stop 10/24/18 at 16:20; Status DC Calcium Gluconate (Calcium Gluconate) 1,000 mg 1X ONCE IVP Last administered on 10/24/18 16:34; Start 10/24/18 at 16:15; Stop 10/24/18 at 16:19; Status DC Insulin Human Regular (HumuLIN R VIAL) 10 unit 1X ONCE IV Last administered on 10/24/18 16:36; Start 10/24/18 at 16:15; Stop 10/24/18 at 16:19; Status DC Dextrose (Dextrose 50%-Water Syringe) 25 gm 1X ONCE IV Last administered on 16:35; Start 10/24/18 at 16:15; Stop 10/24/18 at 16:19; Status DC Nitroglycerin (Nitro-Bid Oint) 1 inch 1X ONCE TP Last administered on 17:15; Start 10/24/18 at 17:15; Stop 10/24/18 at 17:16; Status DC Sodium Polystyrene Sulfonate (Kayexalate) 30 gm 1X ONCE PO Last administered on 10/24/18 17:16; Start 10/24/18 at 17:15; Stop 10/24/18 at 17:16; Status DC Ondansetron HCl (Zofran) 4 mg PRN Q8HRS PRN IV NAUSEA/VOMITING; Start 10/24/18 at 17:15; Stop 10/25/18 at 17:14; Status DC Fentanyl Citrate (Fentanyl 2ml Vial) 50 mcg Q2HR PRN IV PAIN Last administered on 10/25/18at 10:47; Start 10/24/18 at 17:15; Stop 10/25/18 at 17:14; Status DC Insulin Human Lispro (HumaLOG) 0-5 UNITS TIDWMEALS SQ ; Start 10/25/18 at 08:00 Dextrose (Dextrose 50%-Water Syringe) 12.5 gm PRN Q15MIN PRN IV SEE COMMENTS; Start 10/24/18 at 17:30 Dextrose (Dextrose 50%-Water Syringe) 25 gm 1X ONCE IV Last administered on 10/24/18at 18:02; Start 10/24/18 at 18:00; Stop 10/24/18 at 18:04; Status DC Hydralazine HCl (Apresoline Inj) 20 mg 1X ONCE IVP Last administered on at 18:09; Start 10/24/18 at 18:15; Stop 10/24/18 at 18:16; Status DC Ceftriaxone Sodium (Rocephin) 1 gm 1X ONCE IVP Last administered on 10/24/18at 20:22; Start 10/24/18 at 19:30; Stop 10/24/18 at 19:31; Status DC Heparin Sodium (Porcine) (Heparin Sodium) 5,000 unit Q8HRS SQ Last administered on 10/25/18at 05:46; Start 10/24/18 at 22:00; Stop 10/25/18 at 10:18; Status DC Albuterol Sulfate (Ventolin Neb Soln) 2.5 mg PRN Q6HRS PRN INH SHORTNESS OF BREATH; Start 10/24/18 at 19:45 Amlodipine Besylate (Norvasc) 10 mg PRN DAILY PRN PO HYPERTENSION, SEE COMMENTS ; Start 10/24/18 at 19:45 Aspirin (Ecotrin) 81 mg DAILY PO Last administered on 10/26/18at 14:34; Start 10/25/18 at 09:00 Cinacalcet (Sensipar) 30 mg DAILYWSUP PO Last administered on 10/26/18at 14:34; Start 10/25/18 at 17:00 Clonidine HCl (Catapres Tts-2) 1 patch WEEKLY TD ; Start 10/31/18 at 09:00 Clonidine HCl (Catapres) 0.2 mg BID PO ; Start 10/24/18 at 21:00; Stop 10/24/18 at 21:00; Status DC Doxycycline Hyclate (Vibra-Tab) 100 mg BID PO ; Start 10/24/18 at 21:00; Stop 10/24/18 at 21:00; Status DC Ferrous Sulfate (Feosol) 325 mg DAILY PO Last administered on 10/26/18 14:35; Start 10/25/18 at 09:00 Furosemide (Lasix) 40 mg DAILY PO Last administered on 10/26/18 14:35; Start at 09:00 Calcium Acetate (Phoslo) 1,334 mg TIDWMEALS PO Last administered on 10/26/18 14 :35; Start 10/25/18 at 08:00 Aspirin (Ecotrin) 325 mg 1X ONCE PO Last administered on 10/25/18 10:35; Start 10/25/18 at 10:30; Stop 10/25/18 at 10:31; Status DC Heparin Sodium/ Dextrose 500 ml @ 0 mls/hr CONT PRN IV SEE I/O RECORD; Start at 10:15; Status UNV Heparin Sodium/ Dextrose 500 ml @ 0 mls/hr CONT PRN IV SEE I/O RECORD Last administered on 10/25/18at 10:41; Start 10/25/18 at 10:30; Stop 10/26/18 at 16:24; Status DC Heparin Sodium (Porcine) (Heparin Sodium) 2,300 unit PRN Q6HRS PRN IV FOR UFH LEVEL LESS THAN 0.2 Last administered on 10/25/18at 10:42; Start 10/25/18 at 10:30 Sodium Chloride 1,000 ml @ 1,000 mls/hr Q1H PRN IV hypotension; Start 10/25/18 at 10:19; Stop 10/25/18 at 16:18; Status DC Sodium Chloride 1,000 ml @ 400 mls/hr Q2H30M PRN IV PATENCY; Start 10/25/18 at 10:19; Stop 10/25/18 at 22:18; Status DC Info (PHARMACY MONITORING -- do not chart) 1 each PRN DAILY PRN MC SEE COMMENTS ; Start 10/25/18 at 10:30 Info (Anti-Coagulation Monitoring By Pharmacy) 1 each PRN DAILY PRN MC SEE COMMENTS Last administered on 10/26/18at 11:24; Start 10/25/18 at 10:30 Atorvastatin Calcium (Lipitor) 10 mg QHS PO Last administered on 10/26/18at 23:02 ; Start 10/25/18 at 21:00 Fentanyl Citrate (Fentanyl 2ml Vial) 50 mcg PRN Q2HR PRN IV PAIN Last administered on 10/26/18at 15:44; Start 10/26/18 at 08:30 Lidocaine HCl (Lidocaine 1% 20ml Vial) 20 ml STK-MED ONCE .ROUTE ; Start at 10:03; Stop 10/26/18 at 10:05; Status DC Heparin Sodium/ Sodium Chloride 500 ml @ As Directed STK-MED ONCE .ROUTE ; Start 10/26/18 at 10:03; Stop 10/26/18 at 10:05; Status DC Iodixanol (Visipaque 320) 100 ml STK-MED ONCE .ROUTE ; Start 10/26/18 at 10:52; Stop 10/26/18 at 10:54; Status DC Midazolam HCl (Versed) 2 mg STK-MED ONCE .ROUTE ; Start 10/26/18 at 11:18; Stop 10/26/18 at 11:20; Status DC Fentanyl Citrate (Fentanyl 2ml Vial) 100 mcg STK-MED ONCE .ROUTE ; Start at 11:18; Stop 10/26/18 at 11:20; Status DC Heparin Sodium/ Sodium Chloride (HEPARIN for ARTERIAL LINE FLUSH) 1,000 unit 1X ONCE IART Last administered on 10/26/18at 12:01; Start 10/26/18 at 12:00; Stop 10/26/18 at 12:01; Status DC Midazolam HCl (Versed) 1 mg 1X ONCE IV Last administered on 10/26/18at 12:01; Start 10/26/18 at 12:00; Stop 10/26/18 at 12:01; Status DC Fentanyl Citrate (Fentanyl 2ml Vial) 50 mcg 1X ONCE IV Last administered on 10/26/18at 12:02; Start 10/26/18 at 12:00; Stop 10/26/18 at 12:01; Status DC Iodixanol (Visipaque 320) 117 ml 1X ONCE IART Last administered on 10/26/18at 12 :01; Start 10/26/18 at 12:00; Stop 10/26/18 at 12:01; Status DC Lidocaine HCl 18 ml 1X ONCE IJ Last administered on 10/26/18at 11:22; Start 10/26 at 12:00; Stop 10/26/18 at 12:01; Status DC Sodium Chloride (Normal Saline Flush) 3 ml QSHIFT PRN IV AFTER MEDS AND BLOOD DRAWS; Start 10/26/18 at 12:15 Nitroglycerin (Nitrostat) 0.4 mg PRN Q5MIN PRN SL CHEST PAIN; Start 10/26/18 at 12:15 Active Scripts Active Proair Hfa Inhaler (Albuterol Sulfate) 8.5 Gm Hfa.aer.ad 1 Puff INH PRN Q6HRS PRN 14 Days Doxycycline Hyclate 100 Mg Tablet 100 Mg PO BID 7 Days Reported Catapres-Tts 2 (Clonidine) 1 Each Patch.tdwk 1 Each TD WEEKLY Clonidine Hcl 0.2 Mg Tablet 0.2 Mg PO BID Dialyvite [place] D Tablet (Multivitamin, Min Cmb#25/Fa/D3) 1 Each Tablet 1 Each PO DAILY Renvela (Sevelamer Carbonate) 800 Mg Tablet 2 Tab PO TIDWMEALHC Sensipar (Cinacalcet Hcl) 30 Mg Tablet 1 Tab PO DAILYWSUP Calcium Acetate 667 Mg Tablet 1,334 Mg PO TIDWMEALS Lovastatin 10 Mg Tablet 10 Mg PO HS Losartan Potassium 100 Mg Tablet 100 Mg PO DAILY Amlodipine Besylate 10 Mg Tablet 10 Mg PO PRN DAILY PRN Ferrous Sulfate 325 Mg Tablet 1 Tab PO DAILY Lasix (Furosemide) 40 Mg Tablet 1 Tab PO DAILY Aspir 81 (Aspirin) 81 Mg Tablet. 1 Tab PO DAILY Vitals/I & O Vital Sign - Last 24 Hours 10/26/18 10/26/18 10/26/18 10/26/18 08:42 12:02 12:07 12:12 Pulse 96 90 Resp 20 22 22 20 B/P (MAP) 135/64 (87) Pulse Ox 95 94 94 O2 Delivery Room Air Nasal Cannula Nasal Cannula O2 Flow Rate 2.0 2.0 10/26/18 10/26/18 10/26/18 10/26/18 12:27 12:30 12:42 12:57 Pulse 92 90 90 Resp 20 20 20 20 B/P (MAP) 140/67 (91) 126/59 (81) 138/62 (87) Pulse Ox 94 O2 Delivery Room Air O2 Flow Rate 2.0 10/26/18 10/26/18 10/26/18 10/26/18 13:12 15:00 15:44 16:13 Pulse 88 93 Resp 20 20 20 18 B/P (MAP) 124/60 (81) 131/62 (85) Pulse Ox 94 94 O2 Delivery Room Air Room Air O2 Flow Rate 2.0 10/26/18 10/26/18 10/26/18 10/27/18 19:03 19:25 22:44 03:18 Temp 98.6 98.0 98.3 98.6 98.0 98.3 Pulse 90 90 90 Resp 18 16 16 B/P (MAP) 127/57 (80) 112/48 (69) 119/49 (72) Pulse Ox 97 97 94 O2 Delivery Room Air Room Air Room Air Room Air Intake and Output 10/26/18 10/26/18 10/27/18 15:01 23:01 07:01 Intake Total 100 ml 240 ml 200 ml Output Total 0 ml Balance 100 ml 240 ml 200 ml Images Femoral Arteriogram 10/26/18. No significant stenosis involving the distal descending aorta 2. 60% stenosis involving the distal segment of left common iliac artery. No significant stenosis involving the right common iliac artery. 3. The right external iliac artery showed 80% stenosis in the proximal segment. The left external iliac artery did not show any significant stenosis. 4. No significant stenosis involving bilateral common femoral arteries. 5. The right superficial femoral artery showed long 90-95% heavily calcified stenosis involving the proximal, mid and mid to distal segments. The left superficial femoral artery showed long chronic total occlusion involving the proximal and mid segments with distal reconstitution from collaterals. 6. No significant stenosis involving bilateral popliteal arteries. 7. There appears to be at least 2 vessel runoff proximally both lower extremities (anterior tibial and peroneal arteries). The mid to distal segments were not well visualized. Conclusion Severe bilateral lower extremity peripheral vascular disease Recommendations CTA to better visualize below the knee vessels followed by vascular surgery team consultation for possible surgical revascularization. Coronary Angiogram 10/26/18. Hemodynamics: Elevated left ventricle end- diastolic pressure of 31 mmHg. No pullback gradient across the aortic valve. 2. Coronary angiography: a. The left main coronary artery arose from the left sinus of Valsalva, gave rise to the left anterior descending and left circumflex arteries and showed 70 % calcified stenosis involving the distal segment. b. The left anterior descending artery did not show any significant stenosis. c. The left circumflex artery showed 95% calcified stenosis involving the proximal to midsegment, 80% stenosis involving the midsegment and 100% chronic total occlusion in the distal segment. d. The right coronary artery was a dominant vessel arising from the right sinus of Valsalva that showed heavily calcified 95% stenosis involving the ostial and proximal segments, 70% stenosis involving the proximal to midsegment. Conclusion Severe three-vessel coronary artery disease Recommendations Cardiothoracic surgery consultation for possible coronary artery bypass surgery GEORGIE SLATER MD Oct 27, 2018 07:52
[2018-10-27] MEDS: CALCIUM ACETATE 667 MG CAPSULE PO SCH ×3 (08:00→18:10)
[2018-10-27] MEDS: INSULIN LISPRO 300 UNITS/3 ML INSULN.PEN. SQ SCH ×3 (08:00→17:00)
[2018-10-27] MEDS ORDERED: IV NORMAL SALINE 1000ML BAG 1,000 ML IV PRN ×2 (08:10)
[2018-10-27] MEDS ORDERED: DIALYSIS PATIENT. MC PRN (08:15)
--- NOTE | 2018-10-27 08:25 | PDOC2 ---
Consult: Identification/Chief Complaint Chief Complaint 88 yr old AA female presented to ER with bilateral leg edema, elevated troponin i, hyperkalemia, has not felt well x 3 days, has known ESRD on dialysis , cxr c/w acute CHF She was admitted by internal medicine and underwent coronary angiography via a left femoral approach yesterday. This showed three-vessel coronary artery disease but the patient and her family have turned down coronary artery bypass. In questioning her she was also noted to have pain in her right foot. We have been asked to evaluate her given her long history of peripheral vascular disease. In regards to the pain in her right foot, she complains of constant dull aching pain in the right foot that is worse with elevation and improved somewhat with rest. She states that she is to have this pain intermittently but now the pain is constant. The pain is focal, does not radiate, is moderate to severe 6 out of 10, is continuous over the last several days, and other than above has no other provocative or palliative factors. She has no open wounds in the foot. Past Medical History Past Medical History Past Medical History Past Medical History: Diabetes-Type II, Hypertension, Renal Disease, Renal Failure, Vascular Disease , Secondary pulmonary hypertension. Additional Past Medical Histor: PVD,OBESITY Past Surgical History: Other Additional Past Surgical Histo: NON CANCER "OVARIAN MASS" , dialysis shunt placement Alcohol Use: None Drug Use: None FAMILY HX HTN Cardiovascular: CAD, HTN, Hyperlipidemia, Pulmonary hypertension Pulmonary: COPD CENTRAL NERVOUS SYSTEM: Other GI: No pertinent hx Heme/Onc: Anemia NOS Hepatobiliary: No pertinent hx Psych: No pertinent hx Musculoskeletal: Osteoarthritis, Other Rheumatologic: No pertinent hx Infectious disease: No pertinent hx Renal/: Chronic renal failure, Other Endocrine: Diabetes, Hypothyroidism, Hyperparathyroidism Past Surgical History Past Surgical History: Arthroscopy, Cataract Removal, Hysterectomy, Colon Resection, Other Family History Family History: Diabetes Social History Smoke: No ALCOHOL: none Drugs: None Current Problem List Problem List Problems Medical Problems: (1) Hyperkalemia Status: Acute Current Medications Current Medications Current Medications Aspirin (Margie Aspirin) 325 mg 1X ONCE PO Last administered on 10/24/18at 14:51 ; Start 10/24/18 at 14:45; Stop 10/24/18 at 14:46; Status DC Fentanyl Citrate (Fentanyl 2ml Vial) 50 mcg 1X ONCE IV Last administered on 10/24/18at 16:34; Start 10/24/18 at 15:00; Stop 10/24/18 at 15:01; Status DC Bumetanide (Bumex) 1 mg 1X ONCE IV Last administered on 10/24/18at 16:35; Start 10/24/18 at 16:19; Stop 10/24/18 at 16:20; Status DC Calcium Gluconate (Calcium Gluconate) 1,000 mg 1X ONCE IVP Last administered on 10/24/18at 16:34; Start 10/24/18 at 16:15; Stop 10/24/18 at 16:19; Status DC Insulin Human Regular (HumuLIN R VIAL) 10 unit 1X ONCE IV Last administered on 10/24/18at 16:36; Start 10/24/18 at 16:15; Stop 10/24/18 at 16:19; Status DC Dextrose (Dextrose 50%-Water Syringe) 25 gm 1X ONCE IV Last administered on 10/24/18at 16:35; Start 10/24/18 at 16:15; Stop 10/24/18 at 16:19; Status DC Nitroglycerin (Nitro-Bid Oint) 1 inch 1X ONCE TP Last administered on at 17:15; Start 10/24/18 at 17:15; Stop 10/24/18 at 17:16; Status DC Sodium Polystyrene Sulfonate (Kayexalate) 30 gm 1X ONCE PO Last administered on 10/24/18at 17:16; Start 10/24/18 at 17:15; Stop 10/24/18 at 17:16; Status DC Ondansetron HCl (Zofran) 4 mg PRN Q8HRS PRN IV NAUSEA/VOMITING; Start 10/24/18 at 17:15; Stop 10/25/18 at 17:14 Fentanyl Citrate (Fentanyl 2ml Vial) 50 mcg Q2HR PRN IV PAIN; Start 10/24/18 at 17:15; Stop 10/25/18 at 17:14 Insulin Human Lispro (HumaLOG) 0-5 UNITS TIDWMEALS SQ ; Start 10/25/18 at 08:00 Dextrose (Dextrose 50%-Water Syringe) 12.5 gm PRN Q15MIN PRN IV SEE COMMENTS; Start 10/24/18 at 17:30 Dextrose (Dextrose 50%-Water Syringe) 25 gm 1X ONCE IV Last administered on 10/24/18at 18:02; Start 10/24/18 at 18:00; Stop 10/24/18 at 18:04; Status DC Hydralazine HCl (Apresoline Inj) 20 mg 1X ONCE IVP Last administered on at 18:09; Start 10/24/18 at 18:15; Stop 10/24/18 at 18:16; Status DC Active Scripts Active Proair Hfa Inhaler (Albuterol Sulfate) 8.5 Gm Hfa.aer.ad 1 Puff INH PRN Q6HRS PRN 14 Days Doxycycline Hyclate 100 Mg Tablet 100 Mg PO BID 7 Days Reported Catapres-Tts 2 (Clonidine) 1 Each Patch.tdwk 1 Each TD WEEKLY Clonidine Hcl 0.2 Mg Tablet 0.2 Mg PO BID Dialyvite Smolan D Tablet (Multivitamin, Min Cmb#25/Fa/D3) 1 Each Tablet 1 Each PO DAILY Renvela (Sevelamer Carbonate) 800 Mg Tablet 2 Tab PO TIDWMEALHC Sensipar (Cinacalcet Hcl) 30 Mg Tablet 1 Tab PO DAILYWSUP Calcium Acetate 667 Mg Tablet 1,334 Mg PO TIDWMEALS Lovastatin 10 Mg Tablet 10 Mg PO HS Losartan Potassium 100 Mg Tablet 100 Mg PO DAILY Amlodipine Besylate 10 Mg Tablet 10 Mg PO PRN DAILY PRN Ferrous Sulfate 325 Mg Tablet 1 Tab PO DAILY Lasix (Furosemide) 40 Mg Tablet 1 Tab PO DAILY Aspir 81 (Aspirin) 81 Mg Tablet.dr 1 Tab PO DAILY Allergies Allergies: Coded Allergies: No Known Drug Allergies (Unverified , 07/14/17) ROS Review of System Review of Systems Review of Systems Constitutional: Denies fever or chills [] Eyes: Denies change in visual acuity, redness, or eye pain [] HENT: Denies nasal congestion or sore throat [] Respiratory: Denies cough or shortness of breath [] Cardiovascular: EDEMA BOTH LEGS, SOA GI: Denies abdominal pain, nausea, vomiting, bloody stools or diarrhea [] : Denies dysuria or hematuria [] Musculoskeletal: Denies back pain or joint pain [] Integument: Denies rash or skin lesions [] Neurologic: Denies headache, focal weakness or sensory changes [] Endocrine: Denies polyuria or polydipsia [] 14 PT systems were reviewed and found to be within normal limits, except as documented Respiratory: YES: Shortness of breath, SOB with excertion Gastrointestinal: No Nausea, No Vomiting, No Abdominal Pain, No Diarrhea, No Constipation, No Melena, No Hematochezia, No Other Musculoskeletal: Yes Joint Stiffness Neurological: Yes Gait Disturbance Skin: Yes Dry Skin, Yes Rash Physical Exam Physical Exam Physical Exam Physical Exam Constitutional: Well developed, well nourished, no acute distress. She is sitting up in bed and at this point her main complaint is her right foot pain HENT: Normocephalic, atraumatic, bilateral external ears normal, oropharynx moist, no oral exudates, nose normal. Eyes: PERRLA, EOMI, conjunctiva normal, no discharge. Neck: Normal range of motion, no tenderness, supple, no stridor. Cardiovascular:Heart rate regular rhythm, no murmur Lungs & Thorax: Bilateral breath sounds clear to auscultation Abdomen: Bowel sounds normal, soft, no tenderness, no masses, no pulsatile masses. Skin: Cellulitis / rash.both lower legs, edema Back: No tenderness, no CVA tenderness. Extremities: No tenderness, no cyanosis, no clubbing, ROM intact, mild edema. She has evidence of healed venous stasis ulcers in both shins Vascular: He has a palpable left femoral pulse and a significantly diminished right femoral pulse. She has biphasic Doppler signals in the left foot and weak monophasic signals in the right foot Neurologic: Alert and oriented X 3, normal motor function, normal sensory function, no focal deficits noted. Psychologic: Affect normal, judgement normal, mood normal. Imaging: She had aortic and lower Sellers runoff procedure done at the time of her coronary catheterization. And apparently reviewed these films and this does show bilateral high-grade iliac artery stenosis as well as a significant right common femoral and profunda femoral stenosis. Bilateral superficial femoral arteries are chronically occluded with collateral flow reconstituting the popliteal arteries Impression: 88-year-old woman with multiple medical comorbidities including three-vessel coronary artery disease that she has decided not to treat. She does have critical limb ischemia with ischemic rest pain in her right foot. Independent review of her aortoiliac angiograms does show a right iliac artery stenosis that should be amenable to percutaneous stenting. Ideally should have a right common femoral endarterectomy and a right iliac stent to fix her inflow and this should resolve her ischemic rest pain. Given her three-vessel coronary disease and obesity I would probably not offer her open surgical repair. I do think that percutaneous stenting of her right iliac artery high-grade stenosis may improve the inflow enough to resolve or improve her ischemic rest pain. This should be reasonably safe after reviewing the images. I discussed this with her and she does wish to proceed. She is nothing by mouth. We'll plan on left femoral access and right iliac artery stent this afternoon. Total time spent in examination, review of old images and charts, patient counseling, and coordination of care was greater than 80 minutes today. This is exclusive of any procedures. Decision to perform intervention was made after the above exam and review of old films MIRIAM ORO MD Oct 27, 2018 08:25
[2018-10-27] MEDS: fentaNYL PF VIAL 100 MCG/2 ML VIAL IV PRN ×3 (08:45→13:38)
[2018-10-27] MEDS: FUROSEMIDE 40 MG TABLET. PO SCH (09:00)
[2018-10-27] MEDS: FERROUS SULFATE 325 MG TABLET. PO SCH (09:00)
[2018-10-27] MEDS: ASPIRIN ENTERIC COATED 81 MG TABLET.DR. PO SCH ×2 (09:00→18:14)
--- NOTE | 2018-10-27 10:28 | PDOC ---
SUBJECTIVE ROS Reports Overnight pain in her RLE was worse but felt better after increase in pain medications . Seen on HD. s/p Aortogram with bilateral lower extremity runoff 10/26 OBJECTIVE Vital Signs Vital Signs Date Time Temp Pulse Resp B/P (MAP) Pulse Ox O2 Delivery O2 Flow Rate FiO2 10/27/18 08:45 14 96 Room Air 10/27/18 07:00 97.7 92 123/46 (71) 97.7 10/26/18 15:44 2.0 I & 0 Intake and Output 10/27/18 07:01 Intake Total 540 ml Output Total 0 ml Balance 540 ml Intake Oral 540 ml Output Urine Total 0 ml # Bowel Movements 1 PHYSICAL EXAM Physical Exam General: NAD HEENT: OM moist Neck Supple Lungs: CTA bilat, No use of access muscles Abdomen: Soft, No tenderness, obese Extremities: leg edema Trace to 1+ ,bilateral LE with tenderness, changes of CVI+ Neuro: Grossly normal Skin No rash No [place] DIAGNOSIS/ASSESSMENT Assessment & Plan ESRD - On HD - [facility]- [facility]- Dr. 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) DM2 PAD- Rt LE pain s/p arteriogram and femoral runoff -Severe bilateral lower extremity peripheral vascular disease Seen by vascular surgery likely plan for right iliac angioplasty vs stenting COMMENT/RELEVANT DATA Meds Current Medications Medications (Trade) Dose Ordered Sig/Virgil Start Time Stop Time Status Last Admin Dose Admin Albuterol Sulfate (Ventolin Neb Soln) 2.5 mg PRN Q6HRS PRN 10/24/18 19:45 Amlodipine Besylate (Norvasc) 10 mg PRN DAILY PRN 10/24/18 19:45 Aspirin (Margie Aspirin) 325 mg 1X ONCE 10/24/18 14:45 10/24/18 14:46 DC 10/24/18 14:51 325 MG Aspirin (Ecotrin) 325 mg 1X ONCE 10/25/18 10:30 10/25/18 10:31 DC 10/25/18 10:35 325 MG Atorvastatin Calcium (Lipitor) 10 mg QHS 10/25/18 21:00 10/26/18 23:02 10 MG Bumetanide (Bumex) 1 mg 1X ONCE 10/24/18 16:19 10/24/18 16:20 DC 10/24/18 16:35 1 MG Calcium Acetate (Phoslo) 1,334 mg TIDWMEALS 10/25/18 08:00 10/26/18 14:35 1,334 MG Calcium Gluconate (Calcium Gluconate) 1,000 mg 1X ONCE 10/24/18 16:15 10/24/18 16:19 DC 10/24/18 16:34 1,000 MG Ceftriaxone Sodium (Rocephin) 1 gm 1X ONCE 10/24/18 19:30 10/24/18 19:31 DC 10/24/18 20:22 1 GM Cinacalcet (Sensipar) 30 mg DAILYWSUP 10/25/18 17:00 10/26/18 14:34 30 MG Clonidine HCl (Catapres Tts-2) 1 patch WEEKLY 10/31/18 09:00 Clonidine HCl (Catapres) 0.2 mg BID 10/24/18 21:00 10/24/18 21:00 DC Dextrose (Dextrose 50%-Water Syringe) 25 gm 1X ONCE 10/24/18 18:00 10/24/18 18:04 DC 10/24/18 18:02 25 GM Doxycycline Hyclate (Vibra-Tab) 100 mg BID 10/24/18 21:00 10/24/18 21:00 DC Fentanyl Citrate (Fentanyl 2ml Vial) 50 mcg 1X ONCE 10/26/18 12:00 10/26/18 12:01 DC 10/26/18 12:02 50 MCG Ferrous Sulfate (Feosol) 325 mg DAILY 10/25/18 09:00 10/26/18 14:35 325 MG Furosemide (Lasix) 40 mg DAILY 10/25/18 09:00 10/26/18 14:35 40 MG Heparin Sodium (Porcine) (Heparin Sodium) 2,300 unit PRN Q6HRS PRN 10/25/18 10:30 10/25/18 10:42 2,300 UNIT Heparin Sodium/ Dextrose 500 ml @ 0 mls/hr CONT PRN 10/25/18 10:30 10/26/18 16:24 DC 10/25/18 10:41 20 MLS/HR Heparin Sodium/ Sodium Chloride (HEPARIN for ARTERIAL LINE FLUSH) 1,000 unit 1X ONCE 10/26/18 12:00 10/26/18 12:01 DC 10/26/18 12:01 1,000 UNIT Hydralazine HCl (Apresoline Inj) 20 mg 1X ONCE 10/24/18 18:15 10/24/18 18:16 DC 10/24/18 18:09 20 MG Info (Anti-Coagulation Monitoring By Pharmacy) 1 each PRN DAILY PRN 10/25/18 10:30 10/26/18 11:24 1 EACH Info (PHARMACY MONITORING -- do not chart) 1 each PRN DAILY PRN 10/27/18 08:15 Insulin Human Lispro (HumaLOG) 0-5 UNITS TIDWMEALS 10/25/18 08:00 Insulin Human Regular (HumuLIN R VIAL) 10 unit 1X ONCE 10/24/18 16:15 10/24/18 16:19 DC 10/24/18 16:36 10 UNIT Iodixanol (Visipaque 320) 117 ml 1X ONCE 10/26/18 12:00 10/26/18 12:01 DC 10/26/18 12:01 117 ML Lidocaine HCl 18 ml 1X ONCE 10/26/18 12:00 10/26/18 12:01 DC 10/26/18 11:22 18 ML Lidocaine HCl (Lidocaine 1% 20ml Vial) 20 ml STK-MED ONCE 10/26/18 10:03 10/26/18 10:05 DC Midazolam HCl (Versed) 1 mg 1X ONCE 10/26/18 12:00 10/26/18 12:01 DC 10/26/18 12:01 1 MG Nitroglycerin (Nitro-Bid Oint) 1 inch 1X ONCE 10/24/18 17:15 10/24/18 17:16 DC 10/24/18 17:15 1 INCH Nitroglycerin (Nitrostat) 0.4 mg PRN Q5MIN PRN 10/26/18 12:15 Ondansetron HCl (Zofran) 4 mg PRN Q8HRS PRN 10/24/18 17:15 10/25/18 17:14 DC Sodium Polystyrene Sulfonate (Kayexalate) 30 gm 1X ONCE 10/24/18 17:15 10/24/18 17:16 DC 10/24/18 17:16 30 GM Sodium Chloride 1,000 ml @ 400 mls/hr Q2H30M PRN 10/27/18 08:10 10/27/18 20:09 Sodium Chloride (Normal Saline Flush) 3 ml QSHIFT PRN 10/26/18 12:15 Lab Laboratory Tests Test 10/26/18 17:14 10/26/18 21:07 10/27/18 06:30 Glucose (Fingerstick) 131 mg/dL (70-99) 78 mg/dL (70-99) White Blood Count 6.3 x10^3/uL (4.0-11.0) Red Blood Count 3.53 x10^6/uL (3.50-5.40) Hemoglobin 10.5 g/dL (12.0-15.5) Hematocrit 32.8 % (36.0-47.0) Mean Corpuscular Volume 93 fL (79-100) Mean Corpuscular Hemoglobin 30 pg (25-35) Mean Corpuscular Hemoglobin Concent 32 g/dL (31-37) Red Cell Distribution Width 16.9 % (11.5-14.5) Platelet Count 301 x10^3/uL (140-400) Neutrophils (%) (Auto) 73 % (31-73) Lymphocytes (%) (Auto) 11 % (24-48) Monocytes (%) (Auto) 13 % (0-9) Eosinophils (%) (Auto) 2 % (0-3) Basophils (%) (Auto) 1 % (0-3) Neutrophils # (Auto) 4.6 x10^3uL (1.8-7.7) Lymphocytes # (Auto) 0.7 x10^3/uL (1.0-4.8) Monocytes # (Auto) 0.8 x10^3/uL (0.0-1.1) Eosinophils # (Auto) 0.1 x10^3/uL (0.0-0.7) Basophils # (Auto) 0.0 x10^3/uL (0.0-0.2) Sodium Level 138 mmol/L (136-145) Potassium Level 4.8 mmol/L (3.5-5.1) Chloride Level 99 mmol/L (98-107) Carbon Dioxide Level 26 mmol/L (21-32) Anion Gap 13 (6-14) Blood Urea Nitrogen 32 mg/dL (7-20) Creatinine 8.3 mg/dL (0.6-1.0) Estimated GFR (Cockcroft-Gault) 5.5 Glucose Level 111 mg/dL (70-99) Calcium Level 9.4 mg/dL (8.5-10.1) Phosphorus Level 7.4 mg/dL (2.6-4.7) Albumin 3.2 g/dL (3.4-5.0) Results All relevant outside records, renal labs, imaging studies, telemetry/EKG's were reviewed. TOMMY LUND MD Oct 27, 2018 10:28
--- NOTE | 2018-10-27 12:55 | PDOC ---
NICHOL PINEDA PRACTICE ARCHITECT 10/27/18 1255: CARDIO Progress Notes Date and Time Date of Service 10/27/2018 Time of Evaluation 1230 Subjective Subjective: No Chest Pain, No shortness of breath, No Palpitations Vitals Vitals Vital Signs Date Time Temp Pulse Resp B/P (MAP) Pulse Ox O2 Delivery O2 Flow Rate FiO2 10/27/18 11:24 18 96 Room Air 10/27/18 07:00 97.7 92 123/46 (71) 97.7 10/26/18 15:44 2.0 Weight Weight [ ] Input and Output Intake and Output Intake and Output 10/27/18 07:01 Intake Total 540 ml Output Total 0 ml Balance 540 ml Intake Oral 540 ml Output Urine Total 0 ml # Bowel Movements 1 Laboratory Labs Laboratory Tests Test 10/26/18 17:14 10/26/18 21:07 10/27/18 06:30 Glucose (Fingerstick) 131 mg/dL (70-99) 78 mg/dL (70-99) White Blood Count 6.3 x10^3/uL (4.0-11.0) Red Blood Count 3.53 x10^6/uL (3.50-5.40) Hemoglobin 10.5 g/dL (12.0-15.5) Hematocrit 32.8 % (36.0-47.0) Mean Corpuscular Volume 93 fL (79-100) Mean Corpuscular Hemoglobin 30 pg (25-35) Mean Corpuscular Hemoglobin Concent 32 g/dL (31-37) Red Cell Distribution Width 16.9 % (11.5-14.5) Platelet Count 301 x10^3/uL (140-400) Neutrophils (%) (Auto) 73 % (31-73) Lymphocytes (%) (Auto) 11 % (24-48) Monocytes (%) (Auto) 13 % (0-9) Eosinophils (%) (Auto) 2 % (0-3) Basophils (%) (Auto) 1 % (0-3) Neutrophils # (Auto) 4.6 x10^3uL (1.8-7.7) Lymphocytes # (Auto) 0.7 x10^3/uL (1.0-4.8) Monocytes # (Auto) 0.8 x10^3/uL (0.0-1.1) Eosinophils # (Auto) 0.1 x10^3/uL (0.0-0.7) Basophils # (Auto) 0.0 x10^3/uL (0.0-0.2) Sodium Level 138 mmol/L (136-145) Potassium Level 4.8 mmol/L (3.5-5.1) Chloride Level 99 mmol/L (98-107) Carbon Dioxide Level 26 mmol/L (21-32) Anion Gap 13 (6-14) Blood Urea Nitrogen 32 mg/dL (7-20) Creatinine 8.3 mg/dL (0.6-1.0) Estimated GFR (Cockcroft-Gault) 5.5 Glucose Level 111 mg/dL (70-99) Calcium Level 9.4 mg/dL (8.5-10.1) Phosphorus Level 7.4 mg/dL (2.6-4.7) Albumin 3.2 g/dL (3.4-5.0) Physical Exam HEENT: Neck Supple W Full Motion Chest: Symmetric LUNGS: Clear to Auscultation Heart: S1S2, RRR (SR), murmurs (apical murmur 3/6 ) Abdomen: Soft N/T Extremities: No Calf Tenderness Neurology: alert, oriented, follow commands Assessment Assessment 1. NSTEMI: 3VD 2. ESRD 3. Mild Acute on chronic diastolic CHF: compensated. EF and WM nml 4. CAD 5. DM2 6. Anemia on chronic disease 7. LE cellulitis/severe PAD bilaterally: claudication symptoms more to RLE. Awaiting vascular surgery input 8. HTN: controlled Recommendations 1. Pt and family refused CABG and not a candidate for Complex PCI due to extensive LE PAD. Medical therapy in regards to CAD per pt and family's wishes 2. ASA. Will need plavix as well. 3. Secondary prevention measures as tolerated. 5. Fluid off loading per HD MADDY LERMA MD 10/27/18 0062: CARDIO Progress Notes Assessment Assessment Patient seen and examined. Agree with TRESTLE MAINTERNANCE LABORER's assessment and plan. Cardiac catheterization showed three-vessel coronary artery disease Patient does not want coronary artery bypass surgery and she is not a good candidate for high risk PCI with Impella secondary to severe PAD Continue current medical management NICHOL PINEDA APRN Oct 27, 2018 12:55 MADDY LERMA MD Oct 27, 2018 16:57
[2018-10-27] MEDS ORDERED: NALOXONE 0.4 MG/ML VIAL. IV PRN (14:45)
[2018-10-27 15:00] VITALS: BP 128/59
[2018-10-27] MEDS: HYDROmorphone 2 MG/ML VIAL IVP PRN (15:54)
[2018-10-27] MEDS ORDERED: CLOP75TA PO (17:30)
[2018-10-27] MEDS: CINACALCET HCL 30 MG TABLET PO SCH (18:14)
[2018-10-27] MEDS: CLOPIDOGREL BISULFATE 75 MG TABLET PO SCH (18:14)
[2018-10-27 19:30] VITALS: BP 107/52
[2018-10-27] MEDS: ATORVASTATIN CALCIUM 10 MG TABLET. PO SCH (20:44)
[2018-10-27 23:12] VITALS: BP 119/58
[2018-10-28] VITALS (12 sets, daily range): BP systolic 96–155; BP diastolic 53–97
[2018-10-28 06:23] LABS: BASO % 1 % (0-3); EOS # 0.1 x10^3/uL (0.0-0.7); EOS % 2 % (0-3); HEMATOCRIT 32.7 % (36.0-47.0); HEMOGLOBIN 10.1 g/dL (12.0-15.5); LYMPH # 0.9 x10^3/uL (1.0-4.8); LYMPH % 16 % (24-48); MEAN CORPUSCULAR HEMOGLOBIN 29 pg (25-35); MEAN CORPUSCULAR HGB CONC 31 g/dL (31-37); MEAN CORPUSCULAR VOLUME 94 fL (79-100); MONO # 0.7 x10^3/uL (0.0-1.1); MONO % 13 % (0-9); NEUT # 3.7 x10^3uL (1.8-7.7); NEUT % 68 % (31-73); PLATELET COUNT 251 x10^3/uL (140-400); RED BLOOD COUNT 3.47 x10^6/uL (3.50-5.40); RED CELL DISTRIBUTION WIDTH 17.4 % (11.5-14.5); WHITE BLOOD COUNT 5.5 x10^3/uL (4.0-11.0)
[2018-10-28 06:43] LABS: CALCIUM 9.1 mg/dL (8.5-10.1); CREATININE 6.1 mg/dL (0.6-1.0); GFR 7.9; PHOSPHORUS 5.9 mg/dL (2.6-4.7); POTASSIUM 4.8 mmol/L (3.5-5.1)
[2018-10-28] MEDS: INSULIN LISPRO 300 UNITS/3 ML INSULN.PEN. SQ SCH ×3 (08:00→17:00)
[2018-10-28] MEDS: CALCIUM ACETATE 667 MG CAPSULE PO SCH ×3 (08:00→19:06)
[2018-10-28] MEDS: HYDROmorphone 2 MG/ML VIAL IVP PRN (08:44)
[2018-10-28] MEDS: FERROUS SULFATE 325 MG TABLET. PO SCH (09:00)
[2018-10-28] MEDS: ASPIRIN ENTERIC COATED 81 MG TABLET.DR. PO SCH (09:53)
[2018-10-28] MEDS: CLOPIDOGREL BISULFATE 75 MG TABLET PO SCH (09:53)
--- NOTE | 2018-10-28 10:36 | PDOC ---
PROGRESS NOTES Chief Complaint Chief Complaint Edema of both lower legs, right sided CHF, Diastolic CHF, Mild pulmonary vascular congestion Elevated troponin i= .57 Superficial cellulitis both lower legs ESRD on dialysis Hyperkalemia Secondary pulmonary hypertension Anemia PVD Morbid obesity COPD Rt leg chronic wound Moderate diffuse arterial disease of the left lower extremity without any focal high-grade stenosis. 11/05/2017 Extensive coronary artery calcification by ct 2014 DIABETES History of Present Illness History of Present Illness 88 yr old AA female admitted with bilateral leg edema, superficial wounds both legs, elevated troponin i, hyperkalemia, known ESRD on dialysis, cxr c/w acute CHF. 10/25: Hypoglycemic overnight, corrected. Potassium 6 corrected to 5.7. RLE pain today exquisite to even light touch. She still c/o some SOB and non-productive cough. Troponin over 1 today now. Denies chest pain. Seen on dialysis 10/26: Feeling right leg pain and cold today. NO CP. has mild SOB. She underwent coronary angiography which demonstrated severe three-vessel coronary artery disease as well as femoral arteriogram demonstrating severe bilateral lower extremity peripheral vascular disease. Seen by CT Surgery for her three vessel CAD and recommended medical management 10/23 age and comorbidities, in line with patient wishes. 10/27: Dialysis went well. Overnight pain in her RLE was worse and after increase in pain medications to Dilaudid she slept well. Seen by vascular surgery planned for right iliac angioplasty vs stenting on 10/28. Overnight slept well with IV dilaudid. Her right foot is improved. She denies SOB or CP. She is going for right iliac angioplasty. A/P: NSTEMI - with elevation in Trop 1.1, ST depressions, start heparin GTT, consult cardiology Hyperkalemia - to dialysis today. Labs daily Hyperphosphatemia - diet was liberalized to her home diet. Will cont her phoslo Right leg pain - historically with known PVD in left leg. Was going to see vascular surgery later this week, daughter brought her to ED for evaluation more urgently. S/p femoral angiography as above, seen by vascular surgery, hopefully intervention this afternoon ESRD - HD tomorrow Acute on chronic diastolic CHF - UF per nephrology at dialysis DM2 with hypoglycemic episode - adjusted insulin Anemia - of chronic renal disease. monitor FEN - NPO heparin gtt FULL CODE Inpatient for NSTEMI, PVD, hyperkalemia Vitals Vitals Vital Signs Date Time Temp Pulse Resp B/P (MAP) Pulse Ox O2 Delivery O2 Flow Rate FiO2 10/28/18 08:44 Room Air 10/28/18 08:30 95 10/28/18 07:00 97.7 73 20 125/97 (106) 97.7 Physical Exam General: Alert, Oriented X3, No acute distress Heart: Regular rate, Normal S1, Normal S2 Lungs: Crackles Abdomen: Soft, No tenderness Extremities: Other (diminished pedal pulses, leg edema 2+ bilateral LE with tenderness, scabbed over wounds to RLE no oozing) Skin: No significant lesion Labs LABS Laboratory Tests Test 10/27/18 13:23 10/27/18 16:35 10/27/18 21:01 10/28/18 05:30 Glucose (Fingerstick) 83 mg/dL (70-99) 72 mg/dL (70-99) 91 mg/dL (70-99) White Blood Count 5.5 x10^3/uL (4.0-11.0) Red Blood Count 3.47 x10^6/uL (3.50-5.40) Hemoglobin 10.1 g/dL (12.0-15.5) Hematocrit 32.7 % (36.0-47.0) Mean Corpuscular Volume 94 fL (79-100) Mean Corpuscular Hemoglobin 29 pg (25-35) Mean Corpuscular Hemoglobin Concent 31 g/dL (31-37) Red Cell Distribution Width 17.4 % (11.5-14.5) Platelet Count 251 x10^3/uL (140-400) Neutrophils (%) (Auto) 68 % (31-73) Lymphocytes (%) (Auto) 16 % (24-48) Monocytes (%) (Auto) 13 % (0-9) Eosinophils (%) (Auto) 2 % (0-3) Basophils (%) (Auto) 1 % (0-3) Neutrophils # (Auto) 3.7 x10^3uL (1.8-7.7) Lymphocytes # (Auto) 0.9 x10^3/uL (1.0-4.8) Monocytes # (Auto) 0.7 x10^3/uL (0.0-1.1) Eosinophils # (Auto) 0.1 x10^3/uL (0.0-0.7) Basophils # (Auto) 0.0 x10^3/uL (0.0-0.2) Sodium Level 137 mmol/L (136-145) Potassium Level 4.8 mmol/L (3.5-5.1) Chloride Level 98 mmol/L (98-107) Carbon Dioxide Level 26 mmol/L (21-32) Anion Gap 13 (6-14) Blood Urea Nitrogen 21 mg/dL (7-20) Creatinine 6.1 mg/dL (0.6-1.0) Estimated GFR (Cockcroft-Gault) 7.9 Glucose Level 94 mg/dL (70-99) Calcium Level 9.1 mg/dL (8.5-10.1) Phosphorus Level 5.9 mg/dL (2.6-4.7) Albumin 3.0 g/dL (3.4-5.0) Test 10/28/18 08:02 Glucose (Fingerstick) 76 mg/dL (70-99) Assessment and Plan Assessmemt and Plan Problems Medical Problems: (1) Hyperkalemia Status: Acute Comment Review of Relevant I have reviewed the following items vicente (where applicable) has been applied. Labs Laboratory Tests Test 10/26/18 17:14 10/26/18 21:07 10/27/18 06:30 10/27/18 13:23 Glucose (Fingerstick) 131 mg/dL (70-99) 78 mg/dL (70-99) 83 mg/dL (70-99) White Blood Count 6.3 x10^3/uL (4.0-11.0) Red Blood Count 3.53 x10^6/uL (3.50-5.40) Hemoglobin 10.5 g/dL (12.0-15.5) Hematocrit 32.8 % (36.0-47.0) Mean Corpuscular Volume 93 fL (79-100) Mean Corpuscular Hemoglobin 30 pg (25-35) Mean Corpuscular Hemoglobin Concent 32 g/dL (31-37) Red Cell Distribution Width 16.9 % (11.5-14.5) Platelet Count 301 x10^3/uL (140-400) Neutrophils (%) (Auto) 73 % (31-73) Lymphocytes (%) (Auto) 11 % (24-48) Monocytes (%) (Auto) 13 % (0-9) Eosinophils (%) (Auto) 2 % (0-3) Basophils (%) (Auto) 1 % (0-3) Neutrophils # (Auto) 4.6 x10^3uL (1.8-7.7) Lymphocytes # (Auto) 0.7 x10^3/uL (1.0-4.8) Monocytes # (Auto) 0.8 x10^3/uL (0.0-1.1) Eosinophils # (Auto) 0.1 x10^3/uL (0.0-0.7) Basophils # (Auto) 0.0 x10^3/uL (0.0-0.2) Sodium Level 138 mmol/L (136-145) Potassium Level 4.8 mmol/L (3.5-5.1) Chloride Level 99 mmol/L (98-107) Carbon Dioxide Level 26 mmol/L (21-32) Anion Gap 13 (6-14) Blood Urea Nitrogen 32 mg/dL (7-20) Creatinine 8.3 mg/dL (0.6-1.0) Estimated GFR (Cockcroft-Gault) 5.5 Glucose Level 111 mg/dL (70-99) Calcium Level 9.4 mg/dL (8.5-10.1) Phosphorus Level 7.4 mg/dL (2.6-4.7) Troponin I Quantitative 1.015 ng/mL (0.000-0.055) Albumin 3.2 g/dL (3.4-5.0) Test 10/27/18 16:35 10/27/18 21:01 10/28/18 05:30 10/28/18 08:02 Glucose (Fingerstick) 72 mg/dL (70-99) 91 mg/dL (70-99) 76 mg/dL (70-99) White Blood Count 5.5 x10^3/uL (4.0-11.0) Red Blood Count 3.47 x10^6/uL (3.50-5.40) Hemoglobin 10.1 g/dL (12.0-15.5) Hematocrit 32.7 % (36.0-47.0) Mean Corpuscular Volume 94 fL (79-100) Mean Corpuscular Hemoglobin 29 pg (25-35) Mean Corpuscular Hemoglobin Concent 31 g/dL (31-37) Red Cell Distribution Width 17.4 % (11.5-14.5) Platelet Count 251 x10^3/uL (140-400) Neutrophils (%) (Auto) 68 % (31-73) Lymphocytes (%) (Auto) 16 % (24-48) Monocytes (%) (Auto) 13 % (0-9) Eosinophils (%) (Auto) 2 % (0-3) Basophils (%) (Auto) 1 % (0-3) Neutrophils # (Auto) 3.7 x10^3uL (1.8-7.7) Lymphocytes # (Auto) 0.9 x10^3/uL (1.0-4.8) Monocytes # (Auto) 0.7 x10^3/uL (0.0-1.1) Eosinophils # (Auto) 0.1 x10^3/uL (0.0-0.7) Basophils # (Auto) 0.0 x10^3/uL (0.0-0.2) Sodium Level 137 mmol/L (136-145) Potassium Level 4.8 mmol/L (3.5-5.1) Chloride Level 98 mmol/L (98-107) Carbon Dioxide Level 26 mmol/L (21-32) Anion Gap 13 (6-14) Blood Urea Nitrogen 21 mg/dL (7-20) Creatinine 6.1 mg/dL (0.6-1.0) Estimated GFR (Cockcroft-Gault) 7.9 Glucose Level 94 mg/dL (70-99) Calcium Level 9.1 mg/dL (8.5-10.1) Phosphorus Level 5.9 mg/dL (2.6-4.7) Albumin 3.0 g/dL (3.4-5.0) Laboratory Tests Test 10/27/18 13:23 10/27/18 16:35 10/27/18 21:01 10/28/18 05:30 Glucose (Fingerstick) 83 mg/dL (70-99) 72 mg/dL (70-99) 91 mg/dL (70-99) White Blood Count 5.5 x10^3/uL (4.0-11.0) Red Blood Count 3.47 x10^6/uL (3.50-5.40) Hemoglobin 10.1 g/dL (12.0-15.5) Hematocrit 32.7 % (36.0-47.0) Mean Corpuscular Volume 94 fL (79-100) Mean Corpuscular Hemoglobin 29 pg (25-35) Mean Corpuscular Hemoglobin Concent 31 g/dL (31-37) Red Cell Distribution Width 17.4 % (11.5-14.5) Platelet Count 251 x10^3/uL (140-400) Neutrophils (%) (Auto) 68 % (31-73) Lymphocytes (%) (Auto) 16 % (24-48) Monocytes (%) (Auto) 13 % (0-9) Eosinophils (%) (Auto) 2 % (0-3) Basophils (%) (Auto) 1 % (0-3) Neutrophils # (Auto) 3.7 x10^3uL (1.8-7.7) Lymphocytes # (Auto) 0.9 x10^3/uL (1.0-4.8) Monocytes # (Auto) 0.7 x10^3/uL (0.0-1.1) Eosinophils # (Auto) 0.1 x10^3/uL (0.0-0.7) Basophils # (Auto) 0.0 x10^3/uL (0.0-0.2) Sodium Level 137 mmol/L (136-145) Potassium Level 4.8 mmol/L (3.5-5.1) Chloride Level 98 mmol/L (98-107) Carbon Dioxide Level 26 mmol/L (21-32) Anion Gap 13 (6-14) Blood Urea Nitrogen 21 mg/dL (7-20) Creatinine 6.1 mg/dL (0.6-1.0) Estimated GFR (Cockcroft-Gault) 7.9 Glucose Level 94 mg/dL (70-99) Calcium Level 9.1 mg/dL (8.5-10.1) Phosphorus Level 5.9 mg/dL (2.6-4.7) Albumin 3.0 g/dL (3.4-5.0) Test 10/28/18 08:02 Glucose (Fingerstick) 76 mg/dL (70-99) Medications Current Medications Aspirin (Margie Aspirin) 325 mg 1X ONCE PO Last administered on 2/3/19at 14:51 ; Start 10/24/18 at 14:45; Stop 10/24/18 at 14:46; Status DC Fentanyl Citrate (Fentanyl 2ml Vial) 50 mcg 1X ONCE IV Last administered on 16:34; Start 10/24/18 at 15:00; Stop 10/24/18 at 15:01; Status DC Bumetanide (Bumex) 1 mg 1X ONCE IV Last administered on 10/24/18 16:35; Start 10/24/18 at 16:19; Stop 10/24/18 at 16:20; Status DC Calcium Gluconate (Calcium Gluconate) 1,000 mg 1X ONCE IVP Last administered on 10/24/18 16:34; Start 10/24/18 at 16:15; Stop 10/24/18 at 16:19; Status DC Insulin Human Regular (HumuLIN R VIAL) 10 unit 1X ONCE IV Last administered on 10/24/18 16:36; Start 10/24/18 at 16:15; Stop 10/24/18 at 16:19; Status DC Dextrose (Dextrose 50%-Water Syringe) 25 gm 1X ONCE IV Last administered on 16:35; Start 10/24/18 at 16:15; Stop 10/24/18 at 16:19; Status DC Nitroglycerin (Nitro-Bid Oint) 1 inch 1X ONCE TP Last administered on 17:15; Start 10/24/18 at 17:15; Stop 10/24/18 at 17:16; Status DC Sodium Polystyrene Sulfonate (Kayexalate) 30 gm 1X ONCE PO Last administered on 10/24/18 17:16; Start 10/24/18 at 17:15; Stop 10/24/18 at 17:16; Status DC Ondansetron HCl (Zofran) 4 mg PRN Q8HRS PRN IV NAUSEA/VOMITING; Start 10/24/18 at 17:15; Stop 10/25/18 at 17:14; Status DC Fentanyl Citrate (Fentanyl 2ml Vial) 50 mcg Q2HR PRN IV PAIN Last administered on 10/25/18 10:47; Start 10/24/18 at 17:15; Stop 10/25/18 at 17:14; Status DC Insulin Human Lispro (HumaLOG) 0-5 UNITS TIDWMEALS SQ ; Start 10/25/18 at 08:00 Dextrose (Dextrose 50%-Water Syringe) 12.5 gm PRN Q15MIN PRN IV SEE COMMENTS; Start 10/24/18 at 17:30 Dextrose (Dextrose 50%-Water Syringe) 25 gm 1X ONCE IV Last administered on 10/24/18at 18:02; Start 10/24/18 at 18:00; Stop 10/24/18 at 18:04; Status DC Hydralazine HCl (Apresoline Inj) 20 mg 1X ONCE IVP Last administered on at 18:09; Start 10/24/18 at 18:15; Stop 10/24/18 at 18:16; Status DC Ceftriaxone Sodium (Rocephin) 1 gm 1X ONCE IVP Last administered on 10/24/18at 20:22; Start 10/24/18 at 19:30; Stop 10/24/18 at 19:31; Status DC Heparin Sodium (Porcine) (Heparin Sodium) 5,000 unit Q8HRS SQ Last administered on 10/25/18at 05:46; Start 10/24/18 at 22:00; Stop 10/25/18 at 10:18; Status DC Albuterol Sulfate (Ventolin Neb Soln) 2.5 mg PRN Q6HRS PRN INH SHORTNESS OF BREATH; Start 10/24/18 at 19:45 Amlodipine Besylate (Norvasc) 10 mg PRN DAILY PRN PO HYPERTENSION, SEE COMMENTS ; Start 10/24/18 at 19:45 Aspirin (Ecotrin) 81 mg DAILY PO Last administered on 10/28/18at 09:53; Start 10/25/18 at 09:00 Cinacalcet (Sensipar) 30 mg DAILYWSUP PO Last administered on 10/27/18at 18:14; Start 10/25/18 at 17:00 Clonidine HCl (Catapres Tts-2) 1 patch WEEKLY TD ; Start 10/31/18 at 09:00 Clonidine HCl (Catapres) 0.2 mg BID PO ; Start 10/24/18 at 21:00; Stop 10/24/18 at 21:00; Status DC Doxycycline Hyclate (Vibra-Tab) 100 mg BID PO ; Start 10/24/18 at 21:00; Stop 10/24/18 at 21:00; Status DC Ferrous Sulfate (Feosol) 325 mg DAILY PO Last administered on 10/26/18at 14:35; Start 10/25/18 at 09:00 Furosemide (Lasix) 40 mg DAILY PO Last administered on 10/26/18at 14:35; Start at 09:00; Stop 10/27/18 at 13:56; Status DC Calcium Acetate (Phoslo) 1,334 mg TIDWMEALS PO Last administered on 10/27/18at 18 :10; Start 10/25/18 at 08:00 Aspirin (Ecotrin) 325 mg 1X ONCE PO Last administered on 10/25/18at 10:35; Start 10/25/18 at 10:30; Stop 10/25/18 at 10:31; Status DC Heparin Sodium/ Dextrose 500 ml @ 0 mls/hr CONT PRN IV SEE I/O RECORD; Start at 10:15; Status UNV Heparin Sodium/ Dextrose 500 ml @ 0 mls/hr CONT PRN IV SEE I/O RECORD Last administered on 10/25/18at 10:41; Start 10/25/18 at 10:30; Stop 10/26/18 at 16:24; Status DC Heparin Sodium (Porcine) (Heparin Sodium) 2,300 unit PRN Q6HRS PRN IV FOR UFH LEVEL LESS THAN 0.2 Last administered on 10/25/18at 10:42; Start 10/25/18 at 10:30 ; Stop 10/27/18 at 10:32; Status DC Sodium Chloride 1,000 ml @ 1,000 mls/hr Q1H PRN IV hypotension; Start 10/25/18 at 10:19; Stop 10/25/18 at 16:18; Status DC Sodium Chloride 1,000 ml @ 400 mls/hr Q2H30M PRN IV PATENCY; Start 10/25/18 at 10:19; Stop 10/25/18 at 22:18; Status DC Info (PHARMACY MONITORING -- do not chart) 1 each PRN DAILY PRN MC SEE COMMENTS ; Start 10/25/18 at 10:30; Stop 10/27/18 at 08:18; Status DC Info (Anti-Coagulation Monitoring By Pharmacy) 1 each PRN DAILY PRN MC SEE COMMENTS Last administered on 10/26/18at 11:24; Start 10/25/18 at 10:30; Stop at 10:32; Status DC Atorvastatin Calcium (Lipitor) 10 mg QHS PO Last administered on 10/27/18at 20:44 ; Start 10/25/18 at 21:00 Fentanyl Citrate (Fentanyl 2ml Vial) 50 mcg PRN Q2HR PRN IV SEVERE PAIN Last administered on 10/27/18at 13:38; Start 10/26/18 at 08:30 Lidocaine HCl (Lidocaine 1% 20ml Vial) 20 ml STK-MED ONCE .ROUTE ; Start at 10:03; Stop 10/26/18 at 10:05; Status DC Heparin Sodium/ Sodium Chloride 500 ml @ As Directed STK-MED ONCE .ROUTE ; Start 10/26/18 at 10:03; Stop 10/26/18 at 10:05; Status DC Iodixanol (Visipaque 320) 100 ml STK-MED ONCE .ROUTE ; Start 10/26/18 at 10:52; Stop 10/26/18 at 10:54; Status DC Midazolam HCl (Versed) 2 mg STK-MED ONCE .ROUTE ; Start 10/26/18 at 11:18; Stop 10/26/18 at 11:20; Status DC Fentanyl Citrate (Fentanyl 2ml Vial) 100 mcg STK-MED ONCE .ROUTE ; Start at 11:18; Stop 10/26/18 at 11:20; Status DC Heparin Sodium/ Sodium Chloride (HEPARIN for ARTERIAL LINE FLUSH) 1,000 unit 1X ONCE IART Last administered on 10/26/18 12:01; Start 10/26/18 at 12:00; Stop 10/26/18 at 12:01; Status DC Midazolam HCl (Versed) 1 mg 1X ONCE IV Last administered on 10/26/18 12:01; Start 10/26/18 at 12:00; Stop 10/26/18 at 12:01; Status DC Fentanyl Citrate (Fentanyl 2ml Vial) 50 mcg 1X ONCE IV Last administered on 10/26/18at 12:02; Start 10/26/18 at 12:00; Stop 10/26/18 at 12:01; Status DC Iodixanol (Visipaque 320) 117 ml 1X ONCE IART Last administered on 2/5/19at 12 :01; Start 10/26/18 at 12:00; Stop 10/26/18 at 12:01; Status DC Lidocaine HCl 18 ml 1X ONCE IJ Last administered on 10/26/18at 11:22; Start 10/26 at 12:00; Stop 10/26/18 at 12:01; Status DC Sodium Chloride (Normal Saline Flush) 3 ml QSHIFT PRN IV AFTER MEDS AND BLOOD DRAWS; Start 10/26/18 at 12:15 Nitroglycerin (Nitrostat) 0.4 mg PRN Q5MIN PRN SL CHEST PAIN; Start 10/26/18 at 12:15 Sodium Chloride 1,000 ml @ 1,000 mls/hr Q1H PRN IV hypotension; Start 10/27/18 at 08:10; Stop 10/27/18 at 14:09; Status DC Sodium Chloride 1,000 ml @ 400 mls/hr Q2H30M PRN IV PATENCY; Start 10/27/18 at 08:10; Stop 10/27/18 at 20:09; Status DC Info (PHARMACY MONITORING -- do not chart) 1 each PRN DAILY PRN MC SEE COMMENTS ; Start 10/27/18 at 08:15 Hydromorphone HCl (Dilaudid) 0.5 mg PRN Q4HRS PRN IVP MODERATE PAIN Last administered on 10/28/18at 08:44; Start 10/27/18 at 14:45 Acetaminophen/ Hydrocodone Bitart (Lortab 5/325) 1 tab PRN Q6HRS PRN PO PAIN; Start 10/27/18 at 14:45 Naloxone HCl (Narcan) 0.4 mg PRN Q2MIN PRN IV SEE COMMENTS; Start 10/27/18 at 14 :45 Clopidogrel Bisulfate (Plavix) 75 mg DAILYWBKFT PO Last administered on at 09:53; Start 10/27/18 at 18:00 Active Scripts Active Proair Hfa Inhaler (Albuterol Sulfate) 8.5 Gm Hfa.aer.ad 1 Puff INH PRN Q6HRS PRN 14 Days Doxycycline Hyclate 100 Mg Tablet 100 Mg PO BID 7 Days Reported Clopidogrel (Clopidogrel Bisulfate) 75 Mg Tablet 1 Tab PO DAILY Catapres-Tts 2 (Clonidine) 1 Each Patch.tdwk 1 Each TD WEEKLY Clonidine Hcl 0.2 Mg Tablet 0.2 Mg PO BID Dialyvite Roslyn D Tablet (Multivitamin, Min Cmb#25/Fa/D3) 1 Each Tablet 1 Each PO DAILY Renvela (Sevelamer Carbonate) 800 Mg Tablet 2 Tab PO TIDWMEALHC Sensipar (Cinacalcet Hcl) 30 Mg Tablet 1 Tab PO DAILYWSUP Calcium Acetate 667 Mg Tablet 1,334 Mg PO TIDWMEALS Lovastatin 10 Mg Tablet 10 Mg PO HS Losartan Potassium 100 Mg Tablet 100 Mg PO DAILY Amlodipine Besylate 10 Mg Tablet 10 Mg PO PRN DAILY PRN Ferrous Sulfate 325 Mg Tablet 1 Tab PO DAILY Lasix (Furosemide) 40 Mg Tablet 1 Tab PO DAILY Aspir 81 (Aspirin) 81 Mg Tablet. 1 Tab PO DAILY Vitals/I & O Vital Sign - Last 24 Hours 10/27/18 10/27/18 10/27/18 10/27/18 11:24 13:38 14:23 15:00 Temp 97.5 97.5 Pulse 81 Resp 18 16 B/P (MAP) 128/59 (82) Pulse Ox 96 93 O2 Delivery Room Air Room Air Room Air Room Air 10/27/18 10/27/18 10/27/18 10/27/18 15:54 16:30 19:30 19:40 Temp 98.0 98.0 Pulse 86 Resp 12 B/P (MAP) 107/52 (70) Pulse Ox 95 O2 Delivery Room Air Room Air Room Air Room Air 10/27/18 10/28/18 10/28/18 10/28/18 23:12 03:12 07:00 08:30 Temp 98.3 98.2 97.7 98.3 98.2 97.7 Pulse 81 89 73 Resp 16 16 20 B/P (MAP) 119/58 (78) 96/54 (68) 125/97 (106) Pulse Ox 91 91 95 O2 Delivery Room Air Room Air Room Air Room Air 10/28/18 08:44 O2 Delivery Room Air Intake and Output 10/27/18 10/27/18 10/28/18 15:01 23:01 07:01 Intake Total 0 ml 240 ml 0 ml Balance 0 ml 240 ml 0 ml GEORGIE SLATER MD Oct 28, 2018 10:36
[2018-10-28] MEDS ORDERED: IODIXANOL 320 MG/ML 100 ML VIAL. ONE ×2 (13:36→15:33)
[2018-10-28] MEDS ORDERED: LIDOCAINE WITH 8.4% SOD BICARB 3 ML DISP.SYRIN. ONE (13:37)
[2018-10-28] MEDS ORDERED: IODIXANOL 320 MG/ML 50ML VIAL. ONE (13:38)
[2018-10-28] MEDS ORDERED: MIDAZOLAM HCL/PF 2 MG/2 ML VIAL. ONE (14:22)
[2018-10-28] MEDS ORDERED: HEPARIN for IV BOLUS 10,000 UNIT/10 ML VIAL. ONE (14:23)
[2018-10-28] MEDS ORDERED: fentaNYL PF VIAL 100 MCG/2 ML VIAL ONE (14:23)
[2018-10-28] MEDS ORDERED: fentaNYL PF VIAL 100 MCG/2 ML VIAL IV ONE (15:15)
[2018-10-28] MEDS ORDERED: IODIXANOL 320 MG/ML 50ML VIAL. IART ONE (15:15)
[2018-10-28] MEDS ORDERED: LIDOCAINE WITH 8.4% SOD BICARB 3 ML DISP.SYRIN. IJ ONE (15:15)
[2018-10-28] MEDS ORDERED: MIDAZOLAM HCL/PF 2 MG/2 ML VIAL. IV ONE (15:15)
[2018-10-28] MEDS ORDERED: HEPARIN for IV BOLUS 10,000 UNIT/10 ML VIAL. IV ONE (15:15)
[2018-10-28] MEDS ORDERED: CONTRAST GIVEN. MC PRN (15:45)
[2018-10-28] MEDS ORDERED: IODIXANOL 320 MG/ML 100 ML VIAL. IART ONE (15:45)
--- NOTE | 2018-10-28 16:39 | PDOC4 ---
OPERATIVE NOTE Date: Date: Oct 28, 2018 Pre-Op Diagnosis: PAD with ischemic rest pain right foot Post-Op Diagnosis: same as above Procedure Performed: 1) left DRUG ROOM OPERATOR ultrasound guided access 2) Dx angiogram aorta and bilateral ilio-femoral runoff 3) left common iliac angioplasty 4) unable to angioplasty / stent right iliac artery Surgeon: Miriam Oro M.D. Anesthesia Type: conscious sedation 45 min Fentanyl 75mcg Versed 0.5 mg Blood Loss: minimal Specimans Obtained: none Findings: distal aorta with significant calcification, no flow limiting disease right common iliac with significant calcification and moderate atherosclerotic disease right external iliac artery with a focal, high grade stenosis over 1 to 2 cm > 90% Right PFA with a focal high grade stenosis 90% right SFA occluded Complications: none Unable to treat right EIA via left DRUG ROOM OPERATOR access Operative Note: Pt was escorted to the interventional suite and placed supine on the table. Appropriate monitoring devices were placed and the groins were prepped and draped in the usual sterile fashion. A timeout was performed. Attention was directed to the left groin were ultrasound was used to examine the left common femoral artery. This was highly calcified but patent with flow and an image was taken and saved for the medical record. Under real-time ultrasound guidance local anesthetic was injected in the left groin and the left common femoral artery was accessed with a micropuncture needle. This was used to pass a micropuncture wire into the iliac artery and exchanged the needle for a micropuncture sheath. This backbled well and the sheath was used to introduce a Cook wire to the abdominal aorta. The sheath was exchanged for a 5 Nepali sheath and this was used to introduce a Omni Flush catheter into the abdominal aorta. An aortogram was obtained and an oblique iliac entrance are obtained. I used the catheter to the aortic bifurcation and pass a Glidewire drainage into the right common femoral artery. This was used to remove the catheter and I attempted to pass a 6 Nepali destination sheath into the right common iliac artery treat the right external iliac artery high-grade stenosis. This would not track. I pulled this back and used the sheath to introduce a 7 mm x 60 balloon and treated a high-grade stenosis in the left common iliac artery with angioplasty to assist in removing the sheath up and over. After doing so still unable to advance the sheath. I then used a series of wires and catheters including a glide catheter and a quick cross catheter to go up and over to the right common femoral artery and then I exchanged for a Amplatz stiff wire. This was passed into the right common femoral artery. The catheter was removed and I again advanced the sheath but was unable to pass this over the aortic bifurcation. The sheath at the aortic bifurcation attempted to pass angioplasty balloon through the stenosis but was unable to do so. Given her significantly calcified iliac arteries and her fragile medical state I did not want to have a complication therefore I decided to terminate the procedure. The sheath was removed over a wire and an Angio-Seal was placed in the left groin with excellent hemostasis. MIRIAM ORO MD Oct 28, 2018 16:39
--- NOTE | 2018-10-28 17:00 | PDOC ---
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 Ideally she would have a right common femoral endarterectomy and right iliac stent in surgery. Given her age, obesity, ESRD and untreated 3 vessel coronary disease I don't think she would tolerate open surgical revascularization. Endovascular: I was unable to safely treat the right EIA via a left femoral approach Given the high grade right ANODE WORKER and PFA disease and the right SFA occlusion I think right femoral access is not adviseable She does not have a right radial pulse and when I compressed her right wrist with pulse-ox in place the waveform became flat suggesting right radial access is not reasonable I am concerned about 6F right brachial access and the need for surgical repair of the brachial artery afterwards (high risk with cardiac issues) She has a left upper arm loop HD graft -- could access this for right ilaic and ANODE WORKER / PFA orbital atherectomy and angioplasty but this does pose some risk to the graft Overall I think she and her family should consider hospice / palliative care If they refuse this I would be willing to consider arm access at the HD graft for an attempt at endovascular limb intervention on the right Comment Review of Relevant I have reviewed the following items vicente (where applicable) has been applied. Labs Laboratory Tests Test 10/26/18 17:14 10/26/18 21:07 10/27/18 06:30 10/27/18 13:23 Glucose (Fingerstick) 131 mg/dL (70-99) 78 mg/dL (70-99) 83 mg/dL (70-99) White Blood Count 6.3 x10^3/uL (4.0-11.0) Red Blood Count 3.53 x10^6/uL (3.50-5.40) Hemoglobin 10.5 g/dL (12.0-15.5) Hematocrit 32.8 % (36.0-47.0) Mean Corpuscular Volume 93 fL (79-100) Mean Corpuscular Hemoglobin 30 pg (25-35) Mean Corpuscular Hemoglobin Concent 32 g/dL (31-37) Red Cell Distribution Width 16.9 % (11.5-14.5) Platelet Count 301 x10^3/uL (140-400) Neutrophils (%) (Auto) 73 % (31-73) Lymphocytes (%) (Auto) 11 % (24-48) Monocytes (%) (Auto) 13 % (0-9) Eosinophils (%) (Auto) 2 % (0-3) Basophils (%) (Auto) 1 % (0-3) Neutrophils # (Auto) 4.6 x10^3uL (1.8-7.7) Lymphocytes # (Auto) 0.7 x10^3/uL (1.0-4.8) Monocytes # (Auto) 0.8 x10^3/uL (0.0-1.1) Eosinophils # (Auto) 0.1 x10^3/uL (0.0-0.7) Basophils # (Auto) 0.0 x10^3/uL (0.0-0.2) Sodium Level 138 mmol/L (136-145) Potassium Level 4.8 mmol/L (3.5-5.1) Chloride Level 99 mmol/L (98-107) Carbon Dioxide Level 26 mmol/L (21-32) Anion Gap 13 (6-14) Blood Urea Nitrogen 32 mg/dL (7-20) Creatinine 8.3 mg/dL (0.6-1.0) Estimated GFR (Cockcroft-Gault) 5.5 Glucose Level 111 mg/dL (70-99) Calcium Level 9.4 mg/dL (8.5-10.1) Phosphorus Level 7.4 mg/dL (2.6-4.7) Troponin I Quantitative 1.015 ng/mL (0.000-0.055) Albumin 3.2 g/dL (3.4-5.0) Test 10/27/18 16:35 10/27/18 21:01 10/28/18 05:30 10/28/18 08:02 Glucose (Fingerstick) 72 mg/dL (70-99) 91 mg/dL (70-99) 76 mg/dL (70-99) White Blood Count 5.5 x10^3/uL (4.0-11.0) Red Blood Count 3.47 x10^6/uL (3.50-5.40) Hemoglobin 10.1 g/dL (12.0-15.5) Hematocrit 32.7 % (36.0-47.0) Mean Corpuscular Volume 94 fL (79-100) Mean Corpuscular Hemoglobin 29 pg (25-35) Mean Corpuscular Hemoglobin Concent 31 g/dL (31-37) Red Cell Distribution Width 17.4 % (11.5-14.5) Platelet Count 251 x10^3/uL (140-400) Neutrophils (%) (Auto) 68 % (31-73) Lymphocytes (%) (Auto) 16 % (24-48) Monocytes (%) (Auto) 13 % (0-9) Eosinophils (%) (Auto) 2 % (0-3) Basophils (%) (Auto) 1 % (0-3) Neutrophils # (Auto) 3.7 x10^3uL (1.8-7.7) Lymphocytes # (Auto) 0.9 x10^3/uL (1.0-4.8) Monocytes # (Auto) 0.7 x10^3/uL (0.0-1.1) Eosinophils # (Auto) 0.1 x10^3/uL (0.0-0.7) Basophils # (Auto) 0.0 x10^3/uL (0.0-0.2) Sodium Level 137 mmol/L (136-145) Potassium Level 4.8 mmol/L (3.5-5.1) Chloride Level 98 mmol/L (98-107) Carbon Dioxide Level 26 mmol/L (21-32) Anion Gap 13 (6-14) Blood Urea Nitrogen 21 mg/dL (7-20) Creatinine 6.1 mg/dL (0.6-1.0) Estimated GFR (Cockcroft-Gault) 7.9 Glucose Level 94 mg/dL (70-99) Calcium Level 9.1 mg/dL (8.5-10.1) Phosphorus Level 5.9 mg/dL (2.6-4.7) Albumin 3.0 g/dL (3.4-5.0) Test 10/28/18 12:12 Glucose (Fingerstick) 84 mg/dL (70-99) Laboratory Tests Test 10/27/18 21:01 10/28/18 05:30 10/28/18 08:02 10/28/18 12:12 Glucose (Fingerstick) 91 mg/dL (70-99) 76 mg/dL (70-99) 84 mg/dL (70-99) White Blood Count 5.5 x10^3/uL (4.0-11.0) Red Blood Count 3.47 x10^6/uL (3.50-5.40) Hemoglobin 10.1 g/dL (12.0-15.5) Hematocrit 32.7 % (36.0-47.0) Mean Corpuscular Volume 94 fL (79-100) Mean Corpuscular Hemoglobin 29 pg (25-35) Mean Corpuscular Hemoglobin Concent 31 g/dL (31-37) Red Cell Distribution Width 17.4 % (11.5-14.5) Platelet Count 251 x10^3/uL (140-400) Neutrophils (%) (Auto) 68 % (31-73) Lymphocytes (%) (Auto) 16 % (24-48) Monocytes (%) (Auto) 13 % (0-9) Eosinophils (%) (Auto) 2 % (0-3) Basophils (%) (Auto) 1 % (0-3) Neutrophils # (Auto) 3.7 x10^3uL (1.8-7.7) Lymphocytes # (Auto) 0.9 x10^3/uL (1.0-4.8) Monocytes # (Auto) 0.7 x10^3/uL (0.0-1.1) Eosinophils # (Auto) 0.1 x10^3/uL (0.0-0.7) Basophils # (Auto) 0.0 x10^3/uL (0.0-0.2) Sodium Level 137 mmol/L (136-145) Potassium Level 4.8 mmol/L (3.5-5.1) Chloride Level 98 mmol/L (98-107) Carbon Dioxide Level 26 mmol/L (21-32) Anion Gap 13 (6-14) Blood Urea Nitrogen 21 mg/dL (7-20) Creatinine 6.1 mg/dL (0.6-1.0) Estimated GFR (Cockcroft-Gault) 7.9 Glucose Level 94 mg/dL (70-99) Calcium Level 9.1 mg/dL (8.5-10.1) Phosphorus Level 5.9 mg/dL (2.6-4.7) Albumin 3.0 g/dL (3.4-5.0) Medications Current Medications Aspirin ([employer] Aspirin) 325 mg 1X ONCE PO Last administered on 10/24/18 14:51 ; Start 10/24/18 at 14:45; Stop 10/24/18 at 14:46; Status DC Fentanyl Citrate (Fentanyl 2ml Vial) 50 mcg 1X ONCE IV Last administered on 16:34; Start 10/24/18 at 15:00; Stop 10/24/18 at 15:01; Status DC Bumetanide (Bumex) 1 mg 1X ONCE IV Last administered on 10/24/18 16:35; Start 10/24/18 at 16:19; Stop 10/24/18 at 16:20; Status DC Calcium Gluconate (Calcium Gluconate) 1,000 mg 1X ONCE IVP Last administered on 10/24/18 16:34; Start 10/24/18 at 16:15; Stop 10/24/18 at 16:19; Status DC Insulin Human Regular (HumuLIN R VIAL) 10 unit 1X ONCE IV Last administered on 10/24/18 16:36; Start 10/24/18 at 16:15; Stop 10/24/18 at 16:19; Status DC Dextrose (Dextrose 50%-Water Syringe) 25 gm 1X ONCE IV Last administered on 16:35; Start 10/24/18 at 16:15; Stop 10/24/18 at 16:19; Status DC Nitroglycerin (Nitro-Bid Oint) 1 inch 1X ONCE TP Last administered on 17:15; Start 10/24/18 at 17:15; Stop 10/24/18 at 17:16; Status DC Sodium Polystyrene Sulfonate (Kayexalate) 30 gm 1X ONCE PO Last administered on 10/24/18at 17:16; Start 10/24/18 at 17:15; Stop 10/24/18 at 17:16; Status DC Ondansetron HCl (Zofran) 4 mg PRN Q8HRS PRN IV NAUSEA/VOMITING; Start 10/24/18 at 17:15; Stop 10/25/18 at 17:14; Status DC Fentanyl Citrate (Fentanyl 2ml Vial) 50 mcg Q2HR PRN IV PAIN Last administered on 10/25/18at 10:47; Start 10/24/18 at 17:15; Stop 10/25/18 at 17:14; Status DC Insulin Human Lispro (HumaLOG) 0-5 UNITS TIDWMEALS SQ ; Start 10/25/18 at 08:00 Dextrose (Dextrose 50%-Water Syringe) 12.5 gm PRN Q15MIN PRN IV SEE COMMENTS; Start 10/24/18 at 17:30 Dextrose (Dextrose 50%-Water Syringe) 25 gm 1X ONCE IV Last administered on 10/24/18at 18:02; Start 10/24/18 at 18:00; Stop 10/24/18 at 18:04; Status DC Hydralazine HCl (Apresoline Inj) 20 mg 1X ONCE IVP Last administered on at 18:09; Start 10/24/18 at 18:15; Stop 10/24/18 at 18:16; Status DC Ceftriaxone Sodium (Rocephin) 1 gm 1X ONCE IVP Last administered on 10/24/18at 20:22; Start 10/24/18 at 19:30; Stop 10/24/18 at 19:31; Status DC Heparin Sodium (Porcine) (Heparin Sodium) 5,000 unit Q8HRS SQ Last administered on 10/25/18at 05:46; Start 10/24/18 at 22:00; Stop 10/25/18 at 10:18; Status DC Albuterol Sulfate (Ventolin Neb Soln) 2.5 mg PRN Q6HRS PRN INH SHORTNESS OF BREATH; Start 10/24/18 at 19:45 Amlodipine Besylate (Norvasc) 10 mg PRN DAILY PRN PO HYPERTENSION, SEE COMMENTS ; Start 10/24/18 at 19:45 Aspirin (Ecotrin) 81 mg DAILY PO Last administered on 10/28/18at 09:53; Start 10/25/18 at 09:00 Cinacalcet (Sensipar) 30 mg DAILYWSUP PO Last administered on 10/27/18at 18:14; Start 10/25/18 at 17:00 Clonidine HCl (Catapres Tts-2) 1 patch WEEKLY TD ; Start 10/31/18 at 09:00 Clonidine HCl (Catapres) 0.2 mg BID PO ; Start 10/24/18 at 21:00; Stop 10/24/18 at 21:00; Status DC Doxycycline Hyclate (Vibra-Tab) 100 mg BID PO ; Start 10/24/18 at 21:00; Stop 10/24/18 at 21:00; Status DC Ferrous Sulfate (Feosol) 325 mg DAILY PO Last administered on 10/26/18at 14:35; Start 10/25/18 at 09:00 Furosemide (Lasix) 40 mg DAILY PO Last administered on 10/26/18 14:35; Start at 09:00; Stop 10/27/18 at 13:56; Status DC Calcium Acetate (Phoslo) 1,334 mg TIDWMEALS PO Last administered on 10/27/18at 18 :10; Start 10/25/18 at 08:00 Aspirin (Ecotrin) 325 mg 1X ONCE PO Last administered on 10/25/18at 10:35; Start 10/25/18 at 10:30; Stop 10/25/18 at 10:31; Status DC Heparin Sodium/ Dextrose 500 ml @ 0 mls/hr CONT PRN IV SEE I/O RECORD; Start at 10:15; Status UNV Heparin Sodium/ Dextrose 500 ml @ 0 mls/hr CONT PRN IV SEE I/O RECORD Last administered on 10/25/18at 10:41; Start 10/25/18 at 10:30; Stop 10/26/18 at 16:24; Status DC Heparin Sodium (Porcine) (Heparin Sodium) 2,300 unit PRN Q6HRS PRN IV FOR UFH LEVEL LESS THAN 0.2 Last administered on 10/25/18at 10:42; Start 10/25/18 at 10:30 ; Stop 10/27/18 at 10:32; Status DC Sodium Chloride 1,000 ml @ 1,000 mls/hr Q1H PRN IV hypotension; Start 10/25/18 at 10:19; Stop 10/25/18 at 16:18; Status DC Sodium Chloride 1,000 ml @ 400 mls/hr Q2H30M PRN IV PATENCY; Start 10/25/18 at 10:19; Stop 10/25/18 at 22:18; Status DC Info (PHARMACY MONITORING -- do not chart) 1 each PRN DAILY PRN MC SEE COMMENTS ; Start 10/25/18 at 10:30; Stop 10/27/18 at 08:18; Status DC Info (Anti-Coagulation Monitoring By Pharmacy) 1 each PRN DAILY PRN MC SEE COMMENTS Last administered on 10/26/18at 11:24; Start 10/25/18 at 10:30; Stop at 10:32; Status DC Atorvastatin Calcium (Lipitor) 10 mg QHS PO Last administered on 10/27/18at 20:44 ; Start 10/25/18 at 21:00 Fentanyl Citrate (Fentanyl 2ml Vial) 50 mcg PRN Q2HR PRN IV SEVERE PAIN Last administered on 10/27/18at 13:38; Start 10/26/18 at 08:30 Lidocaine HCl (Lidocaine 1% 20ml Vial) 20 ml STK-MED ONCE .ROUTE ; Start at 10:03; Stop 10/26/18 at 10:05; Status DC Heparin Sodium/ Sodium Chloride 500 ml @ As Directed STK-MED ONCE .ROUTE ; Start 10/26/18 at 10:03; Stop 10/26/18 at 10:05; Status DC Iodixanol (Visipaque 320) 100 ml STK-MED ONCE .ROUTE ; Start 10/26/18 at 10:52; Stop 10/26/18 at 10:54; Status DC Midazolam HCl (Versed) 2 mg STK-MED ONCE .ROUTE ; Start 10/26/18 at 11:18; Stop 10/26/18 at 11:20; Status DC Fentanyl Citrate (Fentanyl 2ml Vial) 100 mcg STK-MED ONCE .ROUTE ; Start at 11:18; Stop 10/26/18 at 11:20; Status DC Heparin Sodium/ Sodium Chloride (HEPARIN for ARTERIAL LINE FLUSH) 1,000 unit 1X ONCE IART Last administered on 10/26/18at 12:01; Start 10/26/18 at 12:00; Stop 10/26/18 at 12:01; Status DC Midazolam HCl (Versed) 1 mg 1X ONCE IV Last administered on 10/26/18at 12:01; Start 10/26/18 at 12:00; Stop 10/26/18 at 12:01; Status DC Fentanyl Citrate (Fentanyl 2ml Vial) 50 mcg 1X ONCE IV Last administered on 10/26/18at 12:02; Start 10/26/18 at 12:00; Stop 10/26/18 at 12:01; Status DC Iodixanol (Visipaque 320) 117 ml 1X ONCE IART Last administered on 10/26/18at 12 :01; Start 10/26/18 at 12:00; Stop 10/26/18 at 12:01; Status DC Lidocaine HCl 18 ml 1X ONCE IJ Last administered on 10/26/18at 11:22; Start 10/26 at 12:00; Stop 10/26/18 at 12:01; Status DC Sodium Chloride (Normal Saline Flush) 3 ml QSHIFT PRN IV AFTER MEDS AND BLOOD DRAWS; Start 10/26/18 at 12:15 Nitroglycerin (Nitrostat) 0.4 mg PRN Q5MIN PRN SL CHEST PAIN; Start 10/26/18 at 12:15 Sodium Chloride 1,000 ml @ 1,000 mls/hr Q1H PRN IV hypotension; Start 10/27/18 at 08:10; Stop 10/27/18 at 14:09; Status DC Sodium Chloride 1,000 ml @ 400 mls/hr Q2H30M PRN IV PATENCY; Start 10/27/18 at 08:10; Stop 10/27/18 at 20:09; Status DC Info (PHARMACY MONITORING -- do not chart) 1 each PRN DAILY PRN MC SEE COMMENTS ; Start 10/27/18 at 08:15 Hydromorphone HCl (Dilaudid) 0.5 mg PRN Q4HRS PRN IVP MODERATE PAIN Last administered on 10/28/18at 08:44; Start 10/27/18 at 14:45 Acetaminophen/ Hydrocodone Bitart (Lortab 5/325) 1 tab PRN Q6HRS PRN PO PAIN; Start 10/27/18 at 14:45 Naloxone HCl (Narcan) 0.4 mg PRN Q2MIN PRN IV SEE COMMENTS; Start 10/27/18 at 14 :45 Clopidogrel Bisulfate (Plavix) 75 mg DAILYWBKFT PO Last administered on at 09:53; Start 10/27/18 at 18:00 Iodixanol (Visipaque 320) 100 ml STK-MED ONCE .ROUTE ; Start 10/28/18 at 13:36; Stop 10/28/18 at 13:39; Status DC Lidocaine/Sodium Bicarbonate (Buffered Lidocaine 1%) 3 ml STK-MED ONCE .ROUTE ; Start 10/28/18 at 13:37; Stop 10/28/18 at 13:39; Status DC Heparin Sodium/ Sodium Chloride 1,000 ml @ As Directed STK-MED ONCE .ROUTE ; Start 10/28/18 at 13:37; Stop 10/28/18 at 13:39; Status DC Iodixanol (Visipaque 320) 50 ml STK-MED ONCE .ROUTE ; Start 10/28/18 at 13:38; Stop 10/28/18 at 13:39; Status DC Midazolam HCl (Versed) 2 mg STK-MED ONCE .ROUTE ; Start 10/28/18 at 14:22; Stop 10/28/18 at 14:25; Status DC Fentanyl Citrate (Fentanyl 2ml Vial) 100 mcg STK-MED ONCE .ROUTE ; Start at 14:23; Stop 10/28/18 at 14:25; Status DC Heparin Sodium (Porcine) (Heparin Sodium) 10,000 unit STK-MED ONCE .ROUTE ; Start 10/28/18 at 14:23; Stop 10/28/18 at 14:25; Status DC Heparin Sodium/ Sodium Chloride (HEPARIN for ARTERIAL LINE FLUSH) 1,000 unit 1X ONCE IART Last administered on 10/28/18at 15:15; Start 10/28/18 at 15:15; Stop 10/28/18 at 15:27; Status DC Lidocaine/Sodium Bicarbonate (Buffered Lidocaine 1%) 3 ml 1X ONCE IJ Last administered on 10/28/18at 15:15; Start 10/28/18 at 15:15; Stop 10/28/18 at 15:27; Status DC Midazolam HCl (Versed) 2 mg 1X ONCE IV Last administered on 10/28/18at 15:15; Start 10/28/18 at 15:15; Stop 10/28/18 at 15:27; Status DC Fentanyl Citrate (Fentanyl 2ml Vial) 100 mcg 1X ONCE IV Last administered on at 15:15; Start 10/28/18 at 15:15; Stop 10/28/18 at 15:27; Status DC Heparin Sodium (Porcine) (Heparin Sodium) 5,000 unit 1X ONCE IV Last administered on 10/28/18at 15:15; Start 10/28/18 at 15:15; Stop 10/28/18 at 15:27; Status DC Iodixanol (Visipaque 320) 50 ml 1X ONCE IART Last administered on 10/28/18at 15: 15; Start 10/28/18 at 15:15; Stop 10/28/18 at 15:27; Status DC Iodixanol (Visipaque 320) 100 ml STK-MED ONCE .ROUTE ; Start 10/28/18 at 15:33; Stop 10/28/18 at 15:35; Status DC Iodixanol (Visipaque 320) 100 ml 1X ONCE IART Last administered on 10/28/18at 15 :45; Start 10/28/18 at 15:45; Stop 10/28/18 at 15:46; Status DC Info (CONTRAST GIVEN -- Rx MONITORING) 1 each PRN DAILY PRN MC SEE COMMENTS; Start 10/28/18 at 15:45; Stop 10/30/18 at 15:44 Heparin Sodium/ Sodium Chloride 500 ml @ As Directed STK-MED ONCE .ROUTE ; Start 10/28/18 at 15:38; Stop 10/28/18 at 15:40; Status DC Active Scripts Active Proair Hfa Inhaler (Albuterol Sulfate) 8.5 Gm Hfa.aer.ad 1 Puff INH PRN Q6HRS PRN 14 Days Doxycycline Hyclate 100 Mg Tablet 100 Mg PO BID 7 Days Reported Clopidogrel (Clopidogrel Bisulfate) 75 Mg Tablet 1 Tab PO DAILY Catapres-Tts 2 (Clonidine) 1 Each Patch.tdwk 1 Each TD WEEKLY Clonidine Hcl 0.2 Mg Tablet 0.2 Mg PO BID Dialyvite Hodgkins D Tablet (Multivitamin, Min Cmb#25/Fa/D3) 1 Each Tablet 1 Each PO DAILY Renvela (Sevelamer Carbonate) 800 Mg Tablet 2 Tab PO TIDWMEALHC Sensipar (Cinacalcet Hcl) 30 Mg Tablet 1 Tab PO DAILYWSUP Calcium Acetate 667 Mg Tablet 1,334 Mg PO TIDWMEALS Lovastatin 10 Mg Tablet 10 Mg PO HS Losartan Potassium 100 Mg Tablet 100 Mg PO DAILY Amlodipine Besylate 10 Mg Tablet 10 Mg PO PRN DAILY PRN Ferrous Sulfate 325 Mg Tablet 1 Tab PO DAILY Lasix (Furosemide) 40 Mg Tablet 1 Tab PO DAILY Aspir 81 (Aspirin) 81 Mg Tablet.dr 1 Tab PO DAILY Vitals/I & O Vital Sign - Last 24 Hours 10/27/18 10/27/18 10/27/18 10/28/18 19:30 19:40 23:12 03:12 Temp 98.0 98.3 98.2 98.0 98.3 98.2 Pulse 86 81 89 Resp 12 16 16 B/P (MAP) 107/52 (70) 119/58 (78) 96/54 (68) Pulse Ox 95 91 91 O2 Delivery Room Air Room Air Room Air Room Air 10/28/18 10/28/18 10/28/18 10/28/18 07:00 08:30 08:44 11:00 Temp 97.7 98.0 97.7 98.0 Pulse 73 82 Resp 20 20 B/P (MAP) 125/97 (106) 121/57 (78) Pulse Ox 95 O2 Delivery Room Air Room Air Room Air Room Air 10/28/18 10/28/18 10/28/18 15:00 15:15 16:20 Pulse 64 Resp 20 20 Pulse Ox 99 O2 Delivery Room Air Nasal Cannula O2 Flow Rate 2.0 Intake and Output 10/27/18 10/27/18 10/28/18 15:01 23:01 07:01 Intake Total 0 ml 240 ml 0 ml Balance 0 ml 240 ml 0 ml MIRIAM ORO MD Oct 28, 2018 17:00
[2018-10-28] MEDS: CINACALCET HCL 30 MG TABLET PO SCH (19:06)
[2018-10-28] MEDS: HYDROcodone/APAP 5/325MG 1 TAB TABLET PO PRN (21:06)
[2018-10-28] MEDS: ATORVASTATIN CALCIUM 10 MG TABLET. PO SCH (21:06)
[2018-10-29 02:24] VITALS: BP 132/65
[2018-10-29] MEDS: HYDROmorphone 2 MG/ML VIAL IVP PRN (03:09)
[2018-10-29 04:20] LABS: BASO % 1 % (0-3); EOS # 0.3 x10^3/uL (0.0-0.7); EOS % 5 % (0-3); HEMATOCRIT 31.4 % (36.0-47.0); HEMOGLOBIN 9.8 g/dL (12.0-15.5); LYMPH # 0.8 x10^3/uL (1.0-4.8); LYMPH % 14 % (24-48); MEAN CORPUSCULAR HEMOGLOBIN 29 pg (25-35); MEAN CORPUSCULAR HGB CONC 31 g/dL (31-37); MEAN CORPUSCULAR VOLUME 92 fL (79-100); MONO # 0.9 x10^3/uL (0.0-1.1); MONO % 14 % (0-9); NEUT % 66 % (31-73); PLATELET COUNT 295 x10^3/uL (140-400); RED CELL DISTRIBUTION WIDTH 17.1 % (11.5-14.5); WHITE BLOOD COUNT 6.1 x10^3/uL (4.0-11.0)
[2018-10-29 04:39] LABS: CALCIUM 9.1 mg/dL (8.5-10.1); GFR 5.8; PHOSPHORUS 6.7 mg/dL (2.6-4.7); POTASSIUM 4.7 mmol/L (3.5-5.1)
[2018-10-29 07:00] VITALS: BP 122/59
[2018-10-29] MEDS: CALCIUM ACETATE 667 MG CAPSULE PO SCH ×3 (08:00→16:59)
[2018-10-29] MEDS: INSULIN LISPRO 300 UNITS/3 ML INSULN.PEN. SQ SCH ×3 (08:00→16:59)
[2018-10-29] MEDS: HYDROcodone/APAP 5/325MG 1 TAB TABLET PO PRN ×2 (08:10→16:58)
[2018-10-29] MEDS: fentaNYL PF VIAL 100 MCG/2 ML VIAL IV PRN (08:11)
[2018-10-29] MEDS ORDERED: IV NORMAL SALINE 1000ML BAG 1,000 ML IV PRN ×2 (09:18)
[2018-10-29] MEDS ORDERED: DIALYSIS PATIENT. MC PRN (09:30)
--- NOTE | 2018-10-29 10:18 | PDOC ---
Provider Note Provider Note Vascular S: Patient seen and examined on dialysis. Patient complains of pain in legs, somnolent, Nurse reports recently medicated. O: Somnolent VSS Bilateral feet warm, tender, skin intact A/P: Pt has 3 vessel coronary disease turned down for revascularization, medical management She has severe multi-level PAD with ischemic rest pain of her right foot She has ESRD on HD via a left upper arm loop graft She has severely diseased iliac and right common femoral / profunda femoral arteries. Ideally she would have a right common femoral endarterectomy and right iliac stent in surgery. Given her age, obesity, ESRD and untreated [address] Borrero does not feel she would tolerate open surgical revascularization. Endovascular: Dr. Borrero was unable to safely treat the right EIA via a left femoral approach Given the high grade right COMBINATION PRESSER and PFA disease and the right SFA occlusion right femoral access is not adviseable She does not have a right radial pulse and when compressed her right wrist with pulse-ox in place the waveform became flat suggesting right radial access is not reasonable There is concern about 6F right brachial access and the need for surgical repair of the brachial artery afterwards (high risk with cardiac issues) She has a left upper arm loop HD graft -- could access this for right ilaic and COMBINATION PRESSER / PFA orbital atherectomy and angioplasty but this does pose some risk to the graft Overall would recommend she and her family should consider hospice / palliative care If they refuse this Dr. Borrero would be willing to consider arm access at the HD graft for an attempt at endovascular limb intervention on the right, please notify us if this is the decision they make RACIEL BOWMAN APRN Oct 29, 2018 10:18
--- NOTE | 2018-10-29 10:25 | PDOC ---
SUBJECTIVE ROS Reports Overnight pain in her RLE was worse but felt better after increase in pain medications . Seen on HD. s/p Aortogram with bilateral lower extremity runoff 10/26 OBJECTIVE Vital Signs Vital Signs Date Time Temp Pulse Resp B/P (MAP) Pulse Ox O2 Delivery O2 Flow Rate FiO2 10/29/18 09:10 Room Air 10/29/18 07:00 97.9 76 18 122/59 (80) 96 97.9 10/28/18 19:02 5.0 I & 0 Intake and Output 10/29/18 07:01 Intake Total 400 ml Balance 400 ml Intake Oral 400 ml # Bowel Movements 4 PHYSICAL EXAM Physical Exam General: NAD HEENT: OM moist Neck Supple Lungs: CTA bilat, No use of access muscles Abdomen: Soft, No tenderness, obese Extremities: leg edema Trace to 1+ ,bilateral LE with tenderness, changes of CVI+ Neuro: Grossly normal Skin No rash No [place] DIAGNOSIS/ASSESSMENT Assessment & Plan ESRD - On HD - [facility]- [facility]- Dr. 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 COMMENT/RELEVANT DATA Meds Current Medications Medications (Trade) Dose Ordered Sig/Virgil Start Time Stop Time Status Last Admin Dose Admin Acetaminophen/ Hydrocodone Bitart (Lortab 5/325) 1 tab PRN Q6HRS PRN 10/27/18 14:45 10/29/18 08:10 1 TAB Albuterol Sulfate (Ventolin Neb Soln) 2.5 mg PRN Q6HRS PRN 10/24/18 19:45 Amlodipine Besylate (Norvasc) 10 mg PRN DAILY PRN 10/24/18 19:45 Aspirin (Margie Aspirin) 325 mg 1X ONCE 10/24/18 14:45 10/24/18 14:46 DC 10/24/18 14:51 325 MG Aspirin (Ecotrin) 325 mg 1X ONCE 10/25/18 10:30 10/25/18 10:31 DC 10/25/18 10:35 325 MG Atorvastatin Calcium (Lipitor) 10 mg QHS 10/25/18 21:00 10/28/18 21:06 10 MG Bumetanide (Bumex) 1 mg 1X ONCE 10/24/18 16:19 10/24/18 16:20 DC 10/24/18 16:35 1 MG Calcium Acetate (Phoslo) 1,334 mg TIDWMEALS 10/25/18 08:00 10/28/18 19:06 1,334 MG Calcium Gluconate (Calcium Gluconate) 1,000 mg 1X ONCE 10/24/18 16:15 10/24/18 16:19 DC 10/24/18 16:34 1,000 MG Ceftriaxone Sodium (Rocephin) 1 gm 1X ONCE 10/24/18 19:30 10/24/18 19:31 DC 10/24/18 20:22 1 GM Cinacalcet (Sensipar) 30 mg DAILYWSUP 10/25/18 17:00 10/28/18 19:06 30 MG Clonidine HCl (Catapres Tts-2) 1 patch WEEKLY 10/31/18 09:00 Clonidine HCl (Catapres) 0.2 mg BID 10/24/18 21:00 10/24/18 21:00 DC Clopidogrel Bisulfate (Plavix) 75 mg DAILYWBKFT 10/27/18 18:00 10/28/18 09:53 75 MG Dextrose (Dextrose 50%-Water Syringe) 25 gm 1X ONCE 10/24/18 18:00 10/24/18 18:04 DC 10/24/18 18:02 25 GM Doxycycline Hyclate (Vibra-Tab) 100 mg BID 10/24/18 21:00 10/24/18 21:00 DC Fentanyl Citrate (Fentanyl 2ml Vial) 100 mcg 1X ONCE 10/28/18 15:15 10/28/18 15:27 DC 10/28/18 15:15 75 MCG Ferrous Sulfate (Feosol) 325 mg DAILY 10/25/18 09:00 10/26/18 14:35 325 MG Furosemide (Lasix) 40 mg DAILY 10/25/18 09:00 10/27/18 13:56 DC 10/26/18 14:35 40 MG Heparin Sodium (Porcine) (Heparin Sodium) 5,000 unit 1X ONCE 10/28/18 15:15 10/28/18 15:27 DC 10/28/18 15:15 5,000 UNIT Heparin Sodium/ Dextrose 500 ml @ 0 mls/hr CONT PRN 10/25/18 10:30 10/26/18 16:24 DC 10/25/18 10:41 20 MLS/HR Heparin Sodium/ Sodium Chloride 500 ml @ As Directed STK-MED ONCE 10/28/18 15:38 10/28/18 15:40 DC Heparin Sodium/ Sodium Chloride (HEPARIN for ARTERIAL LINE FLUSH) 1,000 unit 1X ONCE 10/28/18 15:15 10/28/18 15:27 DC 10/28/18 15:15 1,000 UNIT Hydralazine HCl (Apresoline Inj) 20 mg 1X ONCE 10/24/18 18:15 10/24/18 18:16 DC 10/24/18 18:09 20 MG Hydromorphone HCl (Dilaudid) 0.5 mg PRN Q4HRS PRN 10/27/18 14:45 10/29/18 03:09 0.5 MG Info (Anti-Coagulation Monitoring By Pharmacy) 1 each PRN DAILY PRN 10/25/18 10:30 10/27/18 10:32 DC 10/26/18 11:24 1 EACH Info (CONTRAST GIVEN -- Rx MONITORING) 1 each PRN DAILY PRN 10/28/18 15:45 10/30/18 15:44 Info (PHARMACY MONITORING -- do not chart) 1 each PRN DAILY PRN 10/29/18 09:30 Insulin Human Lispro (HumaLOG) 0-5 UNITS TIDWMEALS 10/25/18 08:00 Insulin Human Regular (HumuLIN R VIAL) 10 unit 1X ONCE 10/24/18 16:15 10/24/18 16:19 DC 10/24/18 16:36 10 UNIT Iodixanol (Visipaque 320) 100 ml 1X ONCE 10/28/18 15:45 10/28/18 15:46 DC 10/28/18 15:45 65 ML Lidocaine HCl 18 ml 1X ONCE 10/26/18 12:00 10/26/18 12:01 DC 10/26/18 11:22 18 ML Lidocaine HCl (Lidocaine 1% 20ml Vial) 20 ml STK-MED ONCE 10/26/18 10:03 10/26/18 10:05 DC Lidocaine/Sodium Bicarbonate (Buffered Lidocaine 1%) 3 ml 1X ONCE 10/28/18 15:15 10/28/18 15:27 DC 10/28/18 15:15 5 ML Midazolam HCl (Versed) 2 mg 1X ONCE 10/28/18 15:15 10/28/18 15:27 DC 10/28/18 15:15 0.5 MG Naloxone HCl (Narcan) 0.4 mg PRN Q2MIN PRN 10/27/18 14:45 Nitroglycerin (Nitro-Bid Oint) 1 inch 1X ONCE 10/24/18 17:15 10/24/18 17:16 DC 10/24/18 17:15 1 INCH Nitroglycerin (Nitrostat) 0.4 mg PRN Q5MIN PRN 10/26/18 12:15 Ondansetron HCl (Zofran) 4 mg PRN Q8HRS PRN 10/24/18 17:15 10/25/18 17:14 DC Sodium Polystyrene Sulfonate (Kayexalate) 30 gm 1X ONCE 10/24/18 17:15 10/24/18 17:16 DC 10/24/18 17:16 30 GM Sodium Chloride 1,000 ml @ 400 mls/hr Q2H30M PRN 10/29/18 09:18 10/29/18 21:17 Sodium Chloride (Normal Saline Flush) 3 ml QSHIFT PRN 10/26/18 12:15 Lab Laboratory Tests Test 10/28/18 12:12 10/28/18 17:08 10/28/18 20:18 10/29/18 03:55 Glucose (Fingerstick) 84 mg/dL (70-99) 63 mg/dL (70-99) 162 mg/dL (70-99) White Blood Count 6.1 x10^3/uL (4.0-11.0) Red Blood Count 3.40 x10^6/uL (3.50-5.40) Hemoglobin 9.8 g/dL (12.0-15.5) Hematocrit 31.4 % (36.0-47.0) Mean Corpuscular Volume 92 fL (79-100) Mean Corpuscular Hemoglobin 29 pg (25-35) Mean Corpuscular Hemoglobin Concent 31 g/dL (31-37) Red Cell Distribution Width 17.1 % (11.5-14.5) Platelet Count 295 x10^3/uL (140-400) Neutrophils (%) (Auto) 66 % (31-73) Lymphocytes (%) (Auto) 14 % (24-48) Monocytes (%) (Auto) 14 % (0-9) Eosinophils (%) (Auto) 5 % (0-3) Basophils (%) (Auto) 1 % (0-3) Neutrophils # (Auto) 4.0 x10^3uL (1.8-7.7) Lymphocytes # (Auto) 0.8 x10^3/uL (1.0-4.8) Monocytes # (Auto) 0.9 x10^3/uL (0.0-1.1) Eosinophils # (Auto) 0.3 x10^3/uL (0.0-0.7) Basophils # (Auto) 0.0 x10^3/uL (0.0-0.2) Sodium Level 139 mmol/L (136-145) Potassium Level 4.7 mmol/L (3.5-5.1) Chloride Level 99 mmol/L (98-107) Carbon Dioxide Level 27 mmol/L (21-32) Anion Gap 13 (6-14) Blood Urea Nitrogen 31 mg/dL (7-20) Creatinine 8.0 mg/dL (0.6-1.0) Estimated GFR (Cockcroft-Gault) 5.8 Glucose Level 100 mg/dL (70-99) Calcium Level 9.1 mg/dL (8.5-10.1) Phosphorus Level 6.7 mg/dL (2.6-4.7) Albumin 3.0 g/dL (3.4-5.0) Test 10/29/18 07:19 Glucose (Fingerstick) 98 mg/dL (70-99) Results All relevant outside records, renal labs, imaging studies, telemetry/EKG's were reviewed. TOMMY LUND MD Oct 29, 2018 10:25
--- NOTE | 2018-10-29 10:27 | PDOC ---
PROGRESS NOTES Chief Complaint Chief Complaint Edema of both lower legs, right sided CHF, Diastolic CHF, Mild pulmonary vascular congestion Elevated troponin i= .57 Superficial cellulitis both lower legs ESRD on dialysis Hyperkalemia Secondary pulmonary hypertension Anemia PVD Morbid obesity COPD Rt leg chronic wound Moderate diffuse arterial disease of the left lower extremity without any focal high-grade stenosis. 11/05/2017 Extensive coronary artery calcification by ct 2014 DIABETES History of Present Illness History of Present Illness 88 yr old AA female admitted with bilateral leg edema, superficial wounds both legs, elevated troponin i, hyperkalemia, known ESRD on dialysis, cxr c/w acute CHF. 10/25: Hypoglycemic overnight, corrected. Potassium 6 corrected to 5.7. RLE pain today exquisite to even light touch. She still c/o some SOB and non-productive cough. Troponin over 1 today now. Denies chest pain. Seen on dialysis 10/26: Feeling right leg pain and cold today. NO CP. has mild SOB. She underwent coronary angiography which demonstrated severe three-vessel coronary artery disease as well as femoral arteriogram demonstrating severe bilateral lower extremity peripheral vascular disease. Seen by CT Surgery for her three vessel CAD and recommended medical management 10/23 age and comorbidities, in line with patient wishes. 10/27: Dialysis went well. Overnight pain in her RLE was worse and after increase in pain medications to Dilaudid she slept well. Seen by vascular surgery planned for right iliac angioplasty vs stenting on 10/28. no issues overnight. for HD today A/P: NSTEMI - with elevation in Trop 1.1, ST depressions, s/p LHC. continue plavix and ASA. off heparin drip. Pt has 3 vessel coronary disease turned down for revascularization, medical management Hyperkalemia - HD today Hyperphosphatemia - diet was liberalized to her home diet. Will cont her phoslo Right leg pain secondary to PVD in left leg. 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 vasc consulted. consult palliative care prior to any intervention. vasc note reviewed. ESRD - HD today Acute on chronic diastolic CHF - UF per nephrology at dialysis DM2: stable Anemia - of chronic renal disease. monitor FEN - NPO heparin gtt FULL CODE Inpatient for NSTEMI, PVD, hyperkalemia She has severe multi-level PAD with ischemic rest pain of her right foot She has ESRD on HD via a left upper arm loop graft She has severely diseased iliac and right common femoral / profunda femoral arteries. Ideally she would have a right common femoral endarterectomy and right iliac stent in surgery. Given her age, obesity, ESRD and untreated [address] Borrero does not feel she would tolerate open surgical revascularization. Endovascular: Dr. 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 and PFA disease and the right SFA occlusion right femoral access is not adviseable She does not have a right radial pulse and when compressed her right wrist with pulse-ox in place the waveform became flat suggesting right radial access is not reasonable There is concern about 6F right brachial access and the need for surgical repair of the brachial artery afterwards (high risk with cardiac issues) She has a left upper arm loop HD graft -- could access this for right ilaic and 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 Borrero would be willing to consider arm access at the HD graft for an attempt at endovascular limb intervention on the right, please notify us if this is the decision they make Vitals Vitals Vital Signs Date Time Temp Pulse Resp B/P (MAP) Pulse Ox O2 Delivery O2 Flow Rate FiO2 10/29/18 09:10 Room Air 10/29/18 07:00 97.9 76 18 122/59 (80) 96 97.9 10/28/18 19:02 5.0 Physical Exam General: Alert, Oriented X3, No acute distress Heart: Regular rate, Normal S1, Normal S2 Lungs: Crackles Abdomen: Soft, No tenderness Extremities: Other (diminished pedal pulses, leg edema 2+ bilateral LE with tenderness, scabbed over wounds to RLE no oozing) Skin: No significant lesion Labs LABS Laboratory Tests Test 10/28/18 12:12 10/28/18 17:08 10/28/18 20:18 10/29/18 03:55 Glucose (Fingerstick) 84 mg/dL (70-99) 63 mg/dL (70-99) 162 mg/dL (70-99) White Blood Count 6.1 x10^3/uL (4.0-11.0) Red Blood Count 3.40 x10^6/uL (3.50-5.40) Hemoglobin 9.8 g/dL (12.0-15.5) Hematocrit 31.4 % (36.0-47.0) Mean Corpuscular Volume 92 fL (79-100) Mean Corpuscular Hemoglobin 29 pg (25-35) Mean Corpuscular Hemoglobin Concent 31 g/dL (31-37) Red Cell Distribution Width 17.1 % (11.5-14.5) Platelet Count 295 x10^3/uL (140-400) Neutrophils (%) (Auto) 66 % (31-73) Lymphocytes (%) (Auto) 14 % (24-48) Monocytes (%) (Auto) 14 % (0-9) Eosinophils (%) (Auto) 5 % (0-3) Basophils (%) (Auto) 1 % (0-3) Neutrophils # (Auto) 4.0 x10^3uL (1.8-7.7) Lymphocytes # (Auto) 0.8 x10^3/uL (1.0-4.8) Monocytes # (Auto) 0.9 x10^3/uL (0.0-1.1) Eosinophils # (Auto) 0.3 x10^3/uL (0.0-0.7) Basophils # (Auto) 0.0 x10^3/uL (0.0-0.2) Sodium Level 139 mmol/L (136-145) Potassium Level 4.7 mmol/L (3.5-5.1) Chloride Level 99 mmol/L (98-107) Carbon Dioxide Level 27 mmol/L (21-32) Anion Gap 13 (6-14) Blood Urea Nitrogen 31 mg/dL (7-20) Creatinine 8.0 mg/dL (0.6-1.0) Estimated GFR (Cockcroft-Gault) 5.8 Glucose Level 100 mg/dL (70-99) Calcium Level 9.1 mg/dL (8.5-10.1) Phosphorus Level 6.7 mg/dL (2.6-4.7) Albumin 3.0 g/dL (3.4-5.0) Test 10/29/18 07:19 Glucose (Fingerstick) 98 mg/dL (70-99) Assessment and Plan Assessmemt and Plan Problems Medical Problems: (1) Hyperkalemia Status: Acute Comment Review of Relevant I have reviewed the following items vicente (where applicable) has been applied. Labs Laboratory Tests Test 10/27/18 13:23 10/27/18 16:35 10/27/18 21:01 10/28/18 05:30 Glucose (Fingerstick) 83 mg/dL (70-99) 72 mg/dL (70-99) 91 mg/dL (70-99) White Blood Count 5.5 x10^3/uL (4.0-11.0) Red Blood Count 3.47 x10^6/uL (3.50-5.40) Hemoglobin 10.1 g/dL (12.0-15.5) Hematocrit 32.7 % (36.0-47.0) Mean Corpuscular Volume 94 fL (79-100) Mean Corpuscular Hemoglobin 29 pg (25-35) Mean Corpuscular Hemoglobin Concent 31 g/dL (31-37) Red Cell Distribution Width 17.4 % (11.5-14.5) Platelet Count 251 x10^3/uL (140-400) Neutrophils (%) (Auto) 68 % (31-73) Lymphocytes (%) (Auto) 16 % (24-48) Monocytes (%) (Auto) 13 % (0-9) Eosinophils (%) (Auto) 2 % (0-3) Basophils (%) (Auto) 1 % (0-3) Neutrophils # (Auto) 3.7 x10^3uL (1.8-7.7) Lymphocytes # (Auto) 0.9 x10^3/uL (1.0-4.8) Monocytes # (Auto) 0.7 x10^3/uL (0.0-1.1) Eosinophils # (Auto) 0.1 x10^3/uL (0.0-0.7) Basophils # (Auto) 0.0 x10^3/uL (0.0-0.2) Sodium Level 137 mmol/L (136-145) Potassium Level 4.8 mmol/L (3.5-5.1) Chloride Level 98 mmol/L (98-107) Carbon Dioxide Level 26 mmol/L (21-32) Anion Gap 13 (6-14) Blood Urea Nitrogen 21 mg/dL (7-20) Creatinine 6.1 mg/dL (0.6-1.0) Estimated GFR (Cockcroft-Gault) 7.9 Glucose Level 94 mg/dL (70-99) Calcium Level 9.1 mg/dL (8.5-10.1) Phosphorus Level 5.9 mg/dL (2.6-4.7) Albumin 3.0 g/dL (3.4-5.0) Test 10/28/18 08:02 10/28/18 12:12 10/28/18 17:08 10/28/18 20:18 Glucose (Fingerstick) 76 mg/dL (70-99) 84 mg/dL (70-99) 63 mg/dL (70-99) 162 mg/dL (70-99) Test 10/29/18 03:55 10/29/18 07:19 White Blood Count 6.1 x10^3/uL (4.0-11.0) Red Blood Count 3.40 x10^6/uL (3.50-5.40) Hemoglobin 9.8 g/dL (12.0-15.5) Hematocrit 31.4 % (36.0-47.0) Mean Corpuscular Volume 92 fL (79-100) Mean Corpuscular Hemoglobin 29 pg (25-35) Mean Corpuscular Hemoglobin Concent 31 g/dL (31-37) Red Cell Distribution Width 17.1 % (11.5-14.5) Platelet Count 295 x10^3/uL (140-400) Neutrophils (%) (Auto) 66 % (31-73) Lymphocytes (%) (Auto) 14 % (24-48) Monocytes (%) (Auto) 14 % (0-9) Eosinophils (%) (Auto) 5 % (0-3) Basophils (%) (Auto) 1 % (0-3) Neutrophils # (Auto) 4.0 x10^3uL (1.8-7.7) Lymphocytes # (Auto) 0.8 x10^3/uL (1.0-4.8) Monocytes # (Auto) 0.9 x10^3/uL (0.0-1.1) Eosinophils # (Auto) 0.3 x10^3/uL (0.0-0.7) Basophils # (Auto) 0.0 x10^3/uL (0.0-0.2) Sodium Level 139 mmol/L (136-145) Potassium Level 4.7 mmol/L (3.5-5.1) Chloride Level 99 mmol/L (98-107) Carbon Dioxide Level 27 mmol/L (21-32) Anion Gap 13 (6-14) Blood Urea Nitrogen 31 mg/dL (7-20) Creatinine 8.0 mg/dL (0.6-1.0) Estimated GFR (Cockcroft-Gault) 5.8 Glucose Level 100 mg/dL (70-99) Calcium Level 9.1 mg/dL (8.5-10.1) Phosphorus Level 6.7 mg/dL (2.6-4.7) Albumin 3.0 g/dL (3.4-5.0) Glucose (Fingerstick) 98 mg/dL (70-99) Laboratory Tests Test 10/28/18 12:12 10/28/18 17:08 10/28/18 20:18 10/29/18 03:55 Glucose (Fingerstick) 84 mg/dL (70-99) 63 mg/dL (70-99) 162 mg/dL (70-99) White Blood Count 6.1 x10^3/uL (4.0-11.0) Red Blood Count 3.40 x10^6/uL (3.50-5.40) Hemoglobin 9.8 g/dL (12.0-15.5) Hematocrit 31.4 % (36.0-47.0) Mean Corpuscular Volume 92 fL (79-100) Mean Corpuscular Hemoglobin 29 pg (25-35) Mean Corpuscular Hemoglobin Concent 31 g/dL (31-37) Red Cell Distribution Width 17.1 % (11.5-14.5) Platelet Count 295 x10^3/uL (140-400) Neutrophils (%) (Auto) 66 % (31-73) Lymphocytes (%) (Auto) 14 % (24-48) Monocytes (%) (Auto) 14 % (0-9) Eosinophils (%) (Auto) 5 % (0-3) Basophils (%) (Auto) 1 % (0-3) Neutrophils # (Auto) 4.0 x10^3uL (1.8-7.7) Lymphocytes # (Auto) 0.8 x10^3/uL (1.0-4.8) Monocytes # (Auto) 0.9 x10^3/uL (0.0-1.1) Eosinophils # (Auto) 0.3 x10^3/uL (0.0-0.7) Basophils # (Auto) 0.0 x10^3/uL (0.0-0.2) Sodium Level 139 mmol/L (136-145) Potassium Level 4.7 mmol/L (3.5-5.1) Chloride Level 99 mmol/L (98-107) Carbon Dioxide Level 27 mmol/L (21-32) Anion Gap 13 (6-14) Blood Urea Nitrogen 31 mg/dL (7-20) Creatinine 8.0 mg/dL (0.6-1.0) Estimated GFR (Cockcroft-Gault) 5.8 Glucose Level 100 mg/dL (70-99) Calcium Level 9.1 mg/dL (8.5-10.1) Phosphorus Level 6.7 mg/dL (2.6-4.7) Albumin 3.0 g/dL (3.4-5.0) Test 10/29/18 07:19 Glucose (Fingerstick) 98 mg/dL (70-99) Medications Current Medications Aspirin (Margie Aspirin) 325 mg 1X ONCE PO Last administered on 10/24/18at 14:51 ; Start 10/24/18 at 14:45; Stop 10/24/18 at 14:46; Status DC Fentanyl Citrate (Fentanyl 2ml Vial) 50 mcg 1X ONCE IV Last administered on 10/24/18at 16:34; Start 10/24/18 at 15:00; Stop 10/24/18 at 15:01; Status DC Bumetanide (Bumex) 1 mg 1X ONCE IV Last administered on 10/24/18at 16:35; Start 10/24/18 at 16:19; Stop 10/24/18 at 16:20; Status DC Calcium Gluconate (Calcium Gluconate) 1,000 mg 1X ONCE IVP Last administered on 10/24/18at 16:34; Start 10/24/18 at 16:15; Stop 10/24/18 at 16:19; Status DC Insulin Human Regular (HumuLIN R VIAL) 10 unit 1X ONCE IV Last administered on 10/24/18at 16:36; Start 10/24/18 at 16:15; Stop 10/24/18 at 16:19; Status DC Dextrose (Dextrose 50%-Water Syringe) 25 gm 1X ONCE IV Last administered on 10/24/18at 16:35; Start 10/24/18 at 16:15; Stop 10/24/18 at 16:19; Status DC Nitroglycerin (Nitro-Bid Oint) 1 inch 1X ONCE TP Last administered on at 17:15; Start 10/24/18 at 17:15; Stop 10/24/18 at 17:16; Status DC Sodium Polystyrene Sulfonate (Kayexalate) 30 gm 1X ONCE PO Last administered on 10/24/18at 17:16; Start 10/24/18 at 17:15; Stop 10/24/18 at 17:16; Status DC Ondansetron HCl (Zofran) 4 mg PRN Q8HRS PRN IV NAUSEA/VOMITING; Start 10/24/18 at 17:15; Stop 10/25/18 at 17:14; Status DC Fentanyl Citrate (Fentanyl 2ml Vial) 50 mcg Q2HR PRN IV PAIN Last administered on 10/25/18at 10:47; Start 10/24/18 at 17:15; Stop 10/25/18 at 17:14; Status DC Insulin Human Lispro (HumaLOG) 0-5 UNITS TIDWMEALS SQ ; Start 10/25/18 at 08:00 Dextrose (Dextrose 50%-Water Syringe) 12.5 gm PRN Q15MIN PRN IV SEE COMMENTS; Start 10/24/18 at 17:30 Dextrose (Dextrose 50%-Water Syringe) 25 gm 1X ONCE IV Last administered on 10/24/18at 18:02; Start 10/24/18 at 18:00; Stop 10/24/18 at 18:04; Status DC Hydralazine HCl (Apresoline Inj) 20 mg 1X ONCE IVP Last administered on at 18:09; Start 10/24/18 at 18:15; Stop 10/24/18 at 18:16; Status DC Ceftriaxone Sodium (Rocephin) 1 gm 1X ONCE IVP Last administered on 10/24/18at 20:22; Start 10/24/18 at 19:30; Stop 10/24/18 at 19:31; Status DC Heparin Sodium (Porcine) (Heparin Sodium) 5,000 unit Q8HRS SQ Last administered on 10/25/18at 05:46; Start 10/24/18 at 22:00; Stop 10/25/18 at 10:18; Status DC Albuterol Sulfate (Ventolin Neb Soln) 2.5 mg PRN Q6HRS PRN INH SHORTNESS OF BREATH; Start 10/24/18 at 19:45 Amlodipine Besylate (Norvasc) 10 mg PRN DAILY PRN PO HYPERTENSION, SEE COMMENTS ; Start 10/24/18 at 19:45 Aspirin (Ecotrin) 81 mg DAILY PO Last administered on 10/28/18at 09:53; Start 10/25/18 at 09:00 Cinacalcet (Sensipar) 30 mg DAILYWSUP PO Last administered on 10/28/18at 19:06; Start 10/25/18 at 17:00 Clonidine HCl (Catapres Tts-2) 1 patch WEEKLY TD ; Start 10/31/18 at 09:00 Clonidine HCl (Catapres) 0.2 mg BID PO ; Start 10/24/18 at 21:00; Stop 10/24/18 at 21:00; Status DC Doxycycline Hyclate (Vibra-Tab) 100 mg BID PO ; Start 10/24/18 at 21:00; Stop 10/24/18 at 21:00; Status DC Ferrous Sulfate (Feosol) 325 mg DAILY PO Last administered on 10/26/18at 14:35; Start 10/25/18 at 09:00 Furosemide (Lasix) 40 mg DAILY PO Last administered on 10/26/18at 14:35; Start at 09:00; Stop 10/27/18 at 13:56; Status DC Calcium Acetate (Phoslo) 1,334 mg TIDWMEALS PO Last administered on 10/28/18at 19 :06; Start 10/25/18 at 08:00 Aspirin (Ecotrin) 325 mg 1X ONCE PO Last administered on 10/25/18at 10:35; Start 10/25/18 at 10:30; Stop 10/25/18 at 10:31; Status DC Heparin Sodium/ Dextrose 500 ml @ 0 mls/hr CONT PRN IV SEE I/O RECORD; Start at 10:15; Status UNV Heparin Sodium/ Dextrose 500 ml @ 0 mls/hr CONT PRN IV SEE I/O RECORD Last administered on 10/25/18at 10:41; Start 10/25/18 at 10:30; Stop 10/26/18 at 16:24; Status DC Heparin Sodium (Porcine) (Heparin Sodium) 2,300 unit PRN Q6HRS PRN IV FOR UFH LEVEL LESS THAN 0.2 Last administered on 10/25/18at 10:42; Start 10/25/18 at 10:30 ; Stop 10/27/18 at 10:32; Status DC Sodium Chloride 1,000 ml @ 1,000 mls/hr Q1H PRN IV hypotension; Start 10/25/18 at 10:19; Stop 10/25/18 at 16:18; Status DC Sodium Chloride 1,000 ml @ 400 mls/hr Q2H30M PRN IV PATENCY; Start 10/25/18 at 10:19; Stop 10/25/18 at 22:18; Status DC Info (PHARMACY MONITORING -- do not chart) 1 each PRN DAILY PRN MC SEE COMMENTS ; Start 10/25/18 at 10:30; Stop 10/27/18 at 08:18; Status DC Info (Anti-Coagulation Monitoring By Pharmacy) 1 each PRN DAILY PRN MC SEE COMMENTS Last administered on 10/26/18at 11:24; Start 10/25/18 at 10:30; Stop at 10:32; Status DC Atorvastatin Calcium (Lipitor) 10 mg QHS PO Last administered on 10/28/18at 21:06 ; Start 10/25/18 at 21:00 Fentanyl Citrate (Fentanyl 2ml Vial) 50 mcg PRN Q2HR PRN IV SEVERE PAIN Last administered on 10/29/18at 08:11; Start 10/26/18 at 08:30 Lidocaine HCl (Lidocaine 1% 20ml Vial) 20 ml STK-MED ONCE .ROUTE ; Start at 10:03; Stop 10/26/18 at 10:05; Status DC Heparin Sodium/ Sodium Chloride 500 ml @ As Directed STK-MED ONCE .ROUTE ; Start 10/26/18 at 10:03; Stop 10/26/18 at 10:05; Status DC Iodixanol (Visipaque 320) 100 ml STK-MED ONCE .ROUTE ; Start 10/26/18 at 10:52; Stop 10/26/18 at 10:54; Status DC Midazolam HCl (Versed) 2 mg STK-MED ONCE .ROUTE ; Start 10/26/18 at 11:18; Stop 10/26/18 at 11:20; Status DC Fentanyl Citrate (Fentanyl 2ml Vial) 100 mcg STK-MED ONCE .ROUTE ; Start at 11:18; Stop 10/26/18 at 11:20; Status DC Heparin Sodium/ Sodium Chloride (HEPARIN for ARTERIAL LINE FLUSH) 1,000 unit 1X ONCE IART Last administered on 10/26/18at 12:01; Start 10/26/18 at 12:00; Stop 10/26/18 at 12:01; Status DC Midazolam HCl (Versed) 1 mg 1X ONCE IV Last administered on 10/26/18at 12:01; Start 10/26/18 at 12:00; Stop 10/26/18 at 12:01; Status DC Fentanyl Citrate (Fentanyl 2ml Vial) 50 mcg 1X ONCE IV Last administered on 10/26/18at 12:02; Start 10/26/18 at 12:00; Stop 10/26/18 at 12:01; Status DC Iodixanol (Visipaque 320) 117 ml 1X ONCE IART Last administered on 10/26/18at 12 :01; Start 10/26/18 at 12:00; Stop 10/26/18 at 12:01; Status DC Lidocaine HCl 18 ml 1X ONCE IJ Last administered on 10/26/18at 11:22; Start 10/26 at 12:00; Stop 10/26/18 at 12:01; Status DC Sodium Chloride (Normal Saline Flush) 3 ml QSHIFT PRN IV AFTER MEDS AND BLOOD DRAWS; Start 10/26/18 at 12:15 Nitroglycerin (Nitrostat) 0.4 mg PRN Q5MIN PRN SL CHEST PAIN; Start 10/26/18 at 12:15 Sodium Chloride 1,000 ml @ 1,000 mls/hr Q1H PRN IV hypotension; Start 10/27/18 at 08:10; Stop 10/27/18 at 14:09; Status DC Sodium Chloride 1,000 ml @ 400 mls/hr Q2H30M PRN IV PATENCY; Start 10/27/18 at 08:10; Stop 10/27/18 at 20:09; Status DC Info (PHARMACY MONITORING -- do not chart) 1 each PRN DAILY PRN MC SEE COMMENTS ; Start 10/27/18 at 08:15 Hydromorphone HCl (Dilaudid) 0.5 mg PRN Q4HRS PRN IVP MODERATE PAIN Last administered on 10/29/18at 03:09; Start 10/27/18 at 14:45 Acetaminophen/ Hydrocodone Bitart (Lortab 5/325) 1 tab PRN Q6HRS PRN PO PAIN Last administered on 10/29/18at 08:10; Start 10/27/18 at 14:45 Naloxone HCl (Narcan) 0.4 mg PRN Q2MIN PRN IV SEE COMMENTS; Start 10/27/18 at 14 :45 Clopidogrel Bisulfate (Plavix) 75 mg DAILYWBKFT PO Last administered on at 09:53; Start 10/27/18 at 18:00 Iodixanol (Visipaque 320) 100 ml STK-MED ONCE .ROUTE ; Start 10/28/18 at 13:36; Stop 10/28/18 at 13:39; Status DC Lidocaine/Sodium Bicarbonate (Buffered Lidocaine 1%) 3 ml STK-MED ONCE .ROUTE ; Start 10/28/18 at 13:37; Stop 10/28/18 at 13:39; Status DC Heparin Sodium/ Sodium Chloride 1,000 ml @ As Directed STK-MED ONCE .ROUTE ; Start 10/28/18 at 13:37; Stop 10/28/18 at 13:39; Status DC Iodixanol (Visipaque 320) 50 ml STK-MED ONCE .ROUTE ; Start 10/28/18 at 13:38; Stop 10/28/18 at 13:39; Status DC Midazolam HCl (Versed) 2 mg STK-MED ONCE .ROUTE ; Start 10/28/18 at 14:22; Stop 10/28/18 at 14:25; Status DC Fentanyl Citrate (Fentanyl 2ml Vial) 100 mcg STK-MED ONCE .ROUTE ; Start at 14:23; Stop 10/28/18 at 14:25; Status DC Heparin Sodium (Porcine) (Heparin Sodium) 10,000 unit STK-MED ONCE .ROUTE ; Start 10/28/18 at 14:23; Stop 10/28/18 at 14:25; Status DC Heparin Sodium/ Sodium Chloride (HEPARIN for ARTERIAL LINE FLUSH) 1,000 unit 1X ONCE IART Last administered on 10/28/18at 15:15; Start 10/28/18 at 15:15; Stop 10/28/18 at 15:27; Status DC Lidocaine/Sodium Bicarbonate (Buffered Lidocaine 1%) 3 ml 1X ONCE IJ Last administered on 10/28/18at 15:15; Start 10/28/18 at 15:15; Stop 10/28/18 at 15:27; Status DC Midazolam HCl (Versed) 2 mg 1X ONCE IV Last administered on 10/28/18at 15:15; Start 10/28/18 at 15:15; Stop 10/28/18 at 15:27; Status DC Fentanyl Citrate (Fentanyl 2ml Vial) 100 mcg 1X ONCE IV Last administered on 15:15; Start 10/28/18 at 15:15; Stop 10/28/18 at 15:27; Status DC Heparin Sodium (Porcine) (Heparin Sodium) 5,000 unit 1X ONCE IV Last administered on 10/28/18at 15:15; Start 10/28/18 at 15:15; Stop 10/28/18 at 15:27; Status DC Iodixanol (Visipaque 320) 50 ml 1X ONCE IART Last administered on 10/28/18at 15: 15; Start 10/28/18 at 15:15; Stop 10/28/18 at 15:27; Status DC Iodixanol (Visipaque 320) 100 ml STK-MED ONCE .ROUTE ; Start 10/28/18 at 15:33; Stop 10/28/18 at 15:35; Status DC Iodixanol (Visipaque 320) 100 ml 1X ONCE IART Last administered on 10/28/18at 15 :45; Start 10/28/18 at 15:45; Stop 10/28/18 at 15:46; Status DC Info (CONTRAST GIVEN -- Rx MONITORING) 1 each PRN DAILY PRN MC SEE COMMENTS; Start 10/28/18 at 15:45; Stop 10/30/18 at 15:44 Heparin Sodium/ Sodium Chloride 500 ml @ As Directed STK-MED ONCE .ROUTE ; Start 10/28/18 at 15:38; Stop 10/28/18 at 15:40; Status DC Sodium Chloride 1,000 ml @ 1,000 mls/hr Q1H PRN IV hypotension; Start 10/29/18 at 09:18; Stop 10/29/18 at 15:17 Sodium Chloride 1,000 ml @ 400 mls/hr Q2H30M PRN IV PATENCY; Start 10/29/18 at 09:18; Stop 10/29/18 at 21:17 Info (PHARMACY MONITORING -- do not chart) 1 each PRN DAILY PRN MC SEE COMMENTS ; Start 10/29/18 at 09:30 Active Scripts Active Proair Hfa Inhaler (Albuterol Sulfate) 8.5 Gm Hfa.aer.ad 1 Puff INH PRN Q6HRS PRN 14 Days Doxycycline Hyclate 100 Mg Tablet 100 Mg PO BID 7 Days Reported Clopidogrel (Clopidogrel Bisulfate) 75 Mg Tablet 1 Tab PO DAILY Catapres-Tts 2 (Clonidine) 1 Each Patch.tdwk 1 Each TD WEEKLY Clonidine Hcl 0.2 Mg Tablet 0.2 Mg PO BID Dialyvite Crafton D Tablet (Multivitamin, Min Cmb#25/Fa/D3) 1 Each Tablet 1 Each PO DAILY Renvela (Sevelamer Carbonate) 800 Mg Tablet 2 Tab PO TIDWMEALHC Sensipar (Cinacalcet Hcl) 30 Mg Tablet 1 Tab PO DAILYWSUP Calcium Acetate 667 Mg Tablet 1,334 Mg PO TIDWMEALS Lovastatin 10 Mg Tablet 10 Mg PO HS Losartan Potassium 100 Mg Tablet 100 Mg PO DAILY Amlodipine Besylate 10 Mg Tablet 10 Mg PO PRN DAILY PRN Ferrous Sulfate 325 Mg Tablet 1 Tab PO DAILY Lasix (Furosemide) 40 Mg Tablet 1 Tab PO DAILY Aspir 81 (Aspirin) 81 Mg Tablet. 1 Tab PO DAILY Vitals/I & O Vital Sign - Last 24 Hours 10/28/18 10/28/18 10/28/18 10/28/18 11:00 15:00 15:15 16:20 Temp 98.0 98.0 Pulse 82 64 Resp 20 20 20 B/P (MAP) 121/57 (78) Pulse Ox 99 O2 Delivery Room Air Room Air Nasal Cannula O2 Flow Rate 2.0 10/28/18 10/28/18 10/28/18 10/28/18 16:30 16:45 17:00 17:15 Pulse 86 87 84 84 B/P (MAP) 129/60 (83) 155/68 (97) 127/57 (80) 116/55 (75) 10/28/18 10/28/18 10/28/18 10/28/18 17:30 18:00 19:02 19:02 Pulse 76 80 B/P (MAP) 133/63 (86) 116/55 (75) O2 Delivery Nasal Cannula Nasal Cannula O2 Flow Rate 5.0 5.0 10/28/18 10/28/18 10/28/18 10/28/18 19:24 19:49 21:06 22:57 Temp 97.8 97.9 97.8 97.9 Pulse 87 88 Resp 20 18 B/P (MAP) 139/53 (81) 134/63 (86) Pulse Ox 97 96 O2 Delivery Room Air Room Air Room Air Room Air 10/29/18 10/29/18 10/29/18 10/29/18 02:24 03:09 04:00 07:00 Temp 98.0 97.9 98.0 97.9 Pulse 85 76 Resp 18 18 B/P (MAP) 132/65 (87) 122/59 (80) Pulse Ox 96 96 O2 Delivery Room Air Room Air Room Air Room Air 10/29/18 10/29/18 10/29/18 10/29/18 08:10 08:11 08:41 09:10 O2 Delivery Room Air Room Air Room Air Room Air Intake and Output 10/28/18 10/28/18 10/29/18 15:01 23:01 07:01 Intake Total 400 ml Balance 400 ml TRAM BYRD MD Oct 29, 2018 10:27
[2018-10-29] MEDS: FERROUS SULFATE 325 MG TABLET. PO SCH (13:08)
[2018-10-29] MEDS: CLOPIDOGREL BISULFATE 75 MG TABLET PO SCH (13:08)
[2018-10-29] MEDS: ASPIRIN ENTERIC COATED 81 MG TABLET.DR. PO SCH (13:08)
--- NOTE | 2018-10-29 13:50 | NUR ---
SS following up with discharge planning. Pt is from home with family. Palliative care following for goals of care. Pt declined PT and OT recommending home healthcare. Disposition is currently hospice vs. home healthcare. Palliative care and SS attempting to reach family. SS will continue to follow for discharge needs.
--- NOTE | 2018-10-29 14:07 | PDOC2 ---
PALLIATIVE CARE Palliative Care Note Palliative Care Consult requested by Dr. Michel to discuss goals of care. Medical Assessment per medical record. NSTEMI - with elevation in Trop 1.1, ST depressions, s/p LHC. continue plavix and ASA. off heparin drip. Pt has 3 vessel coronary disease turned down for revascularization, medical management Hyperkalemia - HD today Hyperphosphatemia - diet was liberalized to her home diet. Will cont her phoslo Right leg pain secondary to PVD in left leg. 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 vasc consulted. consult palliative care prior to any intervention. vasc note reviewed. ESRD - HD today Acute on chronic diastolic CHF - UF per nephrology at dialysis DM2: stable Anemia - of chronic renal disease. monitor Patient alert. patient is able to provide information about her medical conditions and has basic understanding of her vascular disease. States "They think it is too risky with my heart disease to fix my vessels in my legs" Patient states she want to continue with dialysis. She wants family input and time to think about her options. Discussed Code Status; wants to continue "Full Code" Received permission to call Jax--granddaughter. [phone]. Message left to return call. Patient lives with granddaughter. Has transportation provided for dialysis. Plan : Will await input from family and return call to arrange meeting. [id number] Granddaughter Jax and patient's daughter Jono here. Unable to meet at this time. Meeting scheduled for Thursday at 1030 SHEILA CALDERON Oct 29, 2018 14:07
[2018-10-29 15:00] VITALS: BP 105/39
--- NOTE | 2018-10-29 15:58 | PDOC ---
PROGRESS NOTES Subjective Subjective Patient denied any chest pain Objective Objective Vital Signs Date Time Temp Pulse Resp B/P (MAP) Pulse Ox O2 Delivery O2 Flow Rate FiO2 10/29/18 15:00 97.9 85 17 105/39 (61) 97 Room Air 97.9 10/28/18 19:02 5.0 Intake and Output 10/29/18 07:01 Intake Total 400 ml Balance 400 ml Intake Oral 400 ml # Bowel Movements 4 Physical Exam Abdomen: Soft, No tenderness Heart: Regular rate, Normal S1, Normal S2 Extremities: Other (diminished pedal pulses, leg edema 2+ bilateral LE with tenderness, scabbed over wounds to RLE no oozing) General: Alert, No acute distress HEENT: Atraumatic, PERRLA Lungs: Clear to auscultation MUSCULOSKELETAL: No deformity Neuro: Normal speech Psych/Mental Status: Mood NL Assessment Assessment 1. NSTEMI: Cardiac catheterization showed three-vessel coronary artery disease. Patient declined coronary artery bypass surgery. She is not a good candidate for high risk PCI with impella due to severe PAD. She is presented chest pain- free. Continue conservative medical management. 2. ESRD: Hemodialysis per nephrology team 3. Mild Acute on chronic diastolic CHF: Better compensated. EF and WM nml 4. HTN: Controlled 5. DM2: per IM 6. PAD: Patient has severe bilateral lower extremity PAD as noted on aortogram. Attempts at [employer] to right external iliac artery by vascular surgery unsuccessful yesterday Poor overall prognosis. Consider palliative care/hospice. Plan Plan of Care Problems Medical Problems: (1) Hyperkalemia Status: Acute Comment Review of Relevant I have reviewed the following items vicente (where applicable) has been applied. Labs Laboratory Tests Test 10/28/18 17:08 10/28/18 20:18 10/29/18 03:55 10/29/18 07:19 Glucose (Fingerstick) 63 mg/dL (70-99) 162 mg/dL (70-99) 98 mg/dL (70-99) White Blood Count 6.1 x10^3/uL (4.0-11.0) Red Blood Count 3.40 x10^6/uL (3.50-5.40) Hemoglobin 9.8 g/dL (12.0-15.5) Hematocrit 31.4 % (36.0-47.0) Mean Corpuscular Volume 92 fL (79-100) Mean Corpuscular Hemoglobin 29 pg (25-35) Mean Corpuscular Hemoglobin Concent 31 g/dL (31-37) Red Cell Distribution Width 17.1 % (11.5-14.5) Platelet Count 295 x10^3/uL (140-400) Neutrophils (%) (Auto) 66 % (31-73) Lymphocytes (%) (Auto) 14 % (24-48) Monocytes (%) (Auto) 14 % (0-9) Eosinophils (%) (Auto) 5 % (0-3) Basophils (%) (Auto) 1 % (0-3) Neutrophils # (Auto) 4.0 x10^3uL (1.8-7.7) Lymphocytes # (Auto) 0.8 x10^3/uL (1.0-4.8) Monocytes # (Auto) 0.9 x10^3/uL (0.0-1.1) Eosinophils # (Auto) 0.3 x10^3/uL (0.0-0.7) Basophils # (Auto) 0.0 x10^3/uL (0.0-0.2) Sodium Level 139 mmol/L (136-145) Potassium Level 4.7 mmol/L (3.5-5.1) Chloride Level 99 mmol/L (98-107) Carbon Dioxide Level 27 mmol/L (21-32) Anion Gap 13 (6-14) Blood Urea Nitrogen 31 mg/dL (7-20) Creatinine 8.0 mg/dL (0.6-1.0) Estimated GFR (Cockcroft-Gault) 5.8 Glucose Level 100 mg/dL (70-99) Calcium Level 9.1 mg/dL (8.5-10.1) Phosphorus Level 6.7 mg/dL (2.6-4.7) Albumin 3.0 g/dL (3.4-5.0) Test 10/29/18 12:55 Glucose (Fingerstick) 73 mg/dL (70-99) Medications Current Medications Clonidine HCl (Catapres Tts-2) 1 patch WEEKLY TD ; Start 10/31/18 at 09:00 Info (PHARMACY MONITORING -- do not chart) 1 each PRN DAILY PRN MC SEE COMMENTS ; Start 10/29/18 at 09:30 Sodium Chloride 1,000 ml @ 400 mls/hr Q2H30M PRN IV PATENCY; Start 10/29/18 at 09:18; Stop 10/29/18 at 21:17 Sodium Chloride 1,000 ml @ 1,000 mls/hr Q1H PRN IV hypotension; Start 10/29/18 at 09:18; Stop 10/29/18 at 15:17; Status DC Vitals/I & O Vital Sign - Last 24 Hours 10/28/18 10/28/18 10/28/18 10/28/18 16:20 16:30 16:45 17:00 Pulse 64 86 87 84 Resp 20 B/P (MAP) 129/60 (83) 155/68 (97) 127/57 (80) Pulse Ox 99 O2 Delivery Nasal Cannula O2 Flow Rate 2.0 10/28/18 10/28/18 10/28/18 10/28/18 17:15 17:30 18:00 19:02 Pulse 84 76 80 B/P (MAP) 116/55 (75) 133/63 (86) 116/55 (75) O2 Delivery Nasal Cannula O2 Flow Rate 5.0 10/28/18 10/28/18 10/28/18 10/28/18 19:02 19:24 19:49 21:06 Temp 97.8 97.8 Pulse 87 Resp 20 B/P (MAP) 139/53 (81) Pulse Ox 97 O2 Delivery Nasal Cannula Room Air Room Air Room Air O2 Flow Rate 5.0 10/28/18 10/29/18 10/29/18 10/29/18 22:57 02:24 03:09 04:00 Temp 97.9 98.0 97.9 98.0 Pulse 88 85 Resp 18 18 B/P (MAP) 134/63 (86) 132/65 (87) Pulse Ox 96 96 O2 Delivery Room Air Room Air Room Air Room Air 10/29/18 10/29/18 10/29/18 10/29/18 07:00 08:00 08:10 08:11 Temp 97.9 97.9 Pulse 76 Resp 18 B/P (MAP) 122/59 (80) Pulse Ox 96 O2 Delivery Room Air Room Air Room Air Room Air 10/29/18 10/29/18 10/29/18 08:41 09:10 15:00 Temp 97.9 97.9 Pulse 85 Resp 17 B/P (MAP) 105/39 (61) Pulse Ox 97 O2 Delivery Room Air Room Air Room Air Intake and Output 10/28/18 10/28/18 10/29/18 15:01 23:01 07:01 Intake Total 400 ml Balance 400 ml MADDY LERMA MD Oct 29, 2018 15:58
[2018-10-29] MEDS: CINACALCET HCL 30 MG TABLET PO SCH (16:59)
[2018-10-29 19:00] VITALS: BP 95/54
[2018-10-29] MEDS: ATORVASTATIN CALCIUM 10 MG TABLET. PO SCH (20:47)
[2018-10-29 23:05] VITALS: BP 144/66
[2018-10-30 03:05] VITALS: BP 144/73
[2018-10-30] MEDS: HYDROcodone/APAP 5/325MG 1 TAB TABLET PO PRN ×2 (04:23→17:51)
[2018-10-30 05:11] LABS: BASO % 1 % (0-3); EOS # 0.2 x10^3/uL (0.0-0.7); EOS % 3 % (0-3); HEMATOCRIT 32.4 % (36.0-47.0); HEMOGLOBIN 10.3 g/dL (12.0-15.5); LYMPH % 13 % (24-48); MEAN CORPUSCULAR HEMOGLOBIN 29 pg (25-35); MEAN CORPUSCULAR HGB CONC 32 g/dL (31-37); MEAN CORPUSCULAR VOLUME 92 fL (79-100); MONO # 0.9 x10^3/uL (0.0-1.1); MONO % 12 % (0-9); NEUT # 5.3 x10^3uL (1.8-7.7); NEUT % 71 % (31-73); PLATELET COUNT 297 x10^3/uL (140-400); RED BLOOD COUNT 3.51 x10^6/uL (3.50-5.40); RED CELL DISTRIBUTION WIDTH 16.9 % (11.5-14.5); WHITE BLOOD COUNT 7.5 x10^3/uL (4.0-11.0)
[2018-10-30 05:43] LABS: ALBUMIN 3.2 g/dL (3.4-5.0); CREATININE 6.6 mg/dL (0.6-1.0); GFR 7.2; PHOSPHORUS 4.6 mg/dL (2.6-4.7); POTASSIUM 4.5 mmol/L (3.5-5.1)
[2018-10-30] MEDS: fentaNYL PF VIAL 100 MCG/2 ML VIAL IV PRN ×3 (06:31→17:59)
[2018-10-30 07:30] VITALS: BP 128/58
[2018-10-30] MEDS: INSULIN LISPRO 300 UNITS/3 ML INSULN.PEN. SQ SCH ×3 (08:00→17:00)
[2018-10-30] MEDS: CLOPIDOGREL BISULFATE 75 MG TABLET PO SCH (08:58)
[2018-10-30] MEDS: CALCIUM ACETATE 667 MG CAPSULE PO SCH ×3 (08:58→17:51)
[2018-10-30] MEDS: FERROUS SULFATE 325 MG TABLET. PO SCH (08:58)
[2018-10-30] MEDS: ASPIRIN ENTERIC COATED 81 MG TABLET.DR. PO SCH (08:58)
[2018-10-30 11:10] VITALS: BP 125/56
--- NOTE | 2018-10-30 11:35 | PDOC ---
PROGRESS NOTES Chief Complaint Chief Complaint Edema of both lower legs, right sided CHF, Diastolic CHF, Mild pulmonary vascular congestion Elevated troponin i= .57 Superficial cellulitis both lower legs ESRD on dialysis Hyperkalemia Secondary pulmonary hypertension Anemia PVD Morbid obesity COPD Rt leg chronic wound Moderate diffuse arterial disease of the left lower extremity without any focal high-grade stenosis. 11/05/2017 Extensive coronary artery calcification by ct 2014 DIABETES History of Present Illness History of Present Illness 88 yr old AA female admitted with bilateral leg edema, superficial wounds both legs, elevated troponin i, hyperkalemia, known ESRD on dialysis, cxr c/w acute CHF. 10/25: Hypoglycemic overnight, corrected. Potassium 6 corrected to 5.7. RLE pain today exquisite to even light touch. She still c/o some SOB and non-productive cough. Troponin over 1 today now. Denies chest pain. Seen on dialysis 10/26: Feeling right leg pain and cold today. NO CP. has mild SOB. She underwent coronary angiography which demonstrated severe three-vessel coronary artery disease as well as femoral arteriogram demonstrating severe bilateral lower extremity peripheral vascular disease. Seen by CT Surgery for her three vessel CAD and recommended medical management 10/23 age and comorbidities, in line with patient wishes. 10/27: Dialysis went well. Overnight pain in her RLE was worse and after increase in pain medications to Dilaudid she slept well. Seen by vascular surgery planned for right iliac angioplasty vs stenting on 10/28. 10/30: patient has no complaints. today. A/P: NSTEMI - with elevation in Trop 1.1, ST depressions, s/p LHC. continue plavix and ASA. off heparin drip. Pt has 3 vessel coronary disease turned down for revascularization, medical management Hyperkalemia - HD today Hyperphosphatemia - diet was liberalized to her home diet. Will cont her phoslo Right leg pain secondary to PVD in left leg. 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 vasc consulted. Patient has severe bilateral lower extremity PAD as noted on aortogram. Attempts at [employer] to right external iliac artery by vascular surgery unsuccessful yesterday. Poor overall prognosis. consulted palliative care ESRD - HD per nephro Acute on chronic diastolic CHF - UF per nephrology at dialysis DM2: stable Anemia - of chronic renal disease. monitor FEN - NPO FULL CODE Inpatient for NSTEMI, PVD, hyperkalemia Vitals Vitals Vital Signs Date Time Temp Pulse Resp B/P (MAP) Pulse Ox O2 Delivery O2 Flow Rate FiO2 10/30/18 09:45 12 Room Air 10/30/18 07:30 97.7 87 128/58 (81) 93 97.7 10/30/18 05:30 2.0 Physical Exam General: Alert, No acute distress Heart: Regular rate, Normal S1, Normal S2 Lungs: Crackles Abdomen: Soft, No tenderness Extremities: Other (diminished pedal pulses, leg edema 2+ bilateral LE with tenderness, scabbed over wounds to RLE no oozing) Labs LABS Laboratory Tests Test 10/29/18 12:55 10/29/18 16:37 10/29/18 21:13 10/30/18 04:30 Glucose (Fingerstick) 73 mg/dL (70-99) 100 mg/dL (70-99) 162 mg/dL (70-99) White Blood Count 7.5 x10^3/uL (4.0-11.0) Red Blood Count 3.51 x10^6/uL (3.50-5.40) Hemoglobin 10.3 g/dL (12.0-15.5) Hematocrit 32.4 % (36.0-47.0) Mean Corpuscular Volume 92 fL (79-100) Mean Corpuscular Hemoglobin 29 pg (25-35) Mean Corpuscular Hemoglobin Concent 32 g/dL (31-37) Red Cell Distribution Width 16.9 % (11.5-14.5) Platelet Count 297 x10^3/uL (140-400) Neutrophils (%) (Auto) 71 % (31-73) Lymphocytes (%) (Auto) 13 % (24-48) Monocytes (%) (Auto) 12 % (0-9) Eosinophils (%) (Auto) 3 % (0-3) Basophils (%) (Auto) 1 % (0-3) Neutrophils # (Auto) 5.3 x10^3uL (1.8-7.7) Lymphocytes # (Auto) 1.0 x10^3/uL (1.0-4.8) Monocytes # (Auto) 0.9 x10^3/uL (0.0-1.1) Eosinophils # (Auto) 0.2 x10^3/uL (0.0-0.7) Basophils # (Auto) 0.0 x10^3/uL (0.0-0.2) Sodium Level 139 mmol/L (136-145) Potassium Level 4.5 mmol/L (3.5-5.1) Chloride Level 99 mmol/L (98-107) Carbon Dioxide Level 29 mmol/L (21-32) Anion Gap 11 (6-14) Blood Urea Nitrogen 24 mg/dL (7-20) Creatinine 6.6 mg/dL (0.6-1.0) Estimated GFR (Cockcroft-Gault) 7.2 Glucose Level 115 mg/dL (70-99) Calcium Level 9.0 mg/dL (8.5-10.1) Phosphorus Level 4.6 mg/dL (2.6-4.7) Albumin 3.2 g/dL (3.4-5.0) Test 10/30/18 07:43 Glucose (Fingerstick) 105 mg/dL (70-99) Assessment and Plan Assessmemt and Plan Problems Medical Problems: (1) Hyperkalemia Status: Acute Comment Review of Relevant I have reviewed the following items vicente (where applicable) has been applied. Labs Laboratory Tests Test 10/28/18 12:12 10/28/18 17:08 10/28/18 20:18 10/29/18 03:55 Glucose (Fingerstick) 84 mg/dL (70-99) 63 mg/dL (70-99) 162 mg/dL (70-99) White Blood Count 6.1 x10^3/uL (4.0-11.0) Red Blood Count 3.40 x10^6/uL (3.50-5.40) Hemoglobin 9.8 g/dL (12.0-15.5) Hematocrit 31.4 % (36.0-47.0) Mean Corpuscular Volume 92 fL (79-100) Mean Corpuscular Hemoglobin 29 pg (25-35) Mean Corpuscular Hemoglobin Concent 31 g/dL (31-37) Red Cell Distribution Width 17.1 % (11.5-14.5) Platelet Count 295 x10^3/uL (140-400) Neutrophils (%) (Auto) 66 % (31-73) Lymphocytes (%) (Auto) 14 % (24-48) Monocytes (%) (Auto) 14 % (0-9) Eosinophils (%) (Auto) 5 % (0-3) Basophils (%) (Auto) 1 % (0-3) Neutrophils # (Auto) 4.0 x10^3uL (1.8-7.7) Lymphocytes # (Auto) 0.8 x10^3/uL (1.0-4.8) Monocytes # (Auto) 0.9 x10^3/uL (0.0-1.1) Eosinophils # (Auto) 0.3 x10^3/uL (0.0-0.7) Basophils # (Auto) 0.0 x10^3/uL (0.0-0.2) Sodium Level 139 mmol/L (136-145) Potassium Level 4.7 mmol/L (3.5-5.1) Chloride Level 99 mmol/L (98-107) Carbon Dioxide Level 27 mmol/L (21-32) Anion Gap 13 (6-14) Blood Urea Nitrogen 31 mg/dL (7-20) Creatinine 8.0 mg/dL (0.6-1.0) Estimated GFR (Cockcroft-Gault) 5.8 Glucose Level 100 mg/dL (70-99) Calcium Level 9.1 mg/dL (8.5-10.1) Phosphorus Level 6.7 mg/dL (2.6-4.7) Albumin 3.0 g/dL (3.4-5.0) Test 10/29/18 07:19 10/29/18 12:55 10/29/18 16:37 10/29/18 21:13 Glucose (Fingerstick) 98 mg/dL (70-99) 73 mg/dL (70-99) 100 mg/dL (70-99) 162 mg/dL (70-99) Test 10/30/18 04:30 10/30/18 07:43 White Blood Count 7.5 x10^3/uL (4.0-11.0) Red Blood Count 3.51 x10^6/uL (3.50-5.40) Hemoglobin 10.3 g/dL (12.0-15.5) Hematocrit 32.4 % (36.0-47.0) Mean Corpuscular Volume 92 fL (79-100) Mean Corpuscular Hemoglobin 29 pg (25-35) Mean Corpuscular Hemoglobin Concent 32 g/dL (31-37) Red Cell Distribution Width 16.9 % (11.5-14.5) Platelet Count 297 x10^3/uL (140-400) Neutrophils (%) (Auto) 71 % (31-73) Lymphocytes (%) (Auto) 13 % (24-48) Monocytes (%) (Auto) 12 % (0-9) Eosinophils (%) (Auto) 3 % (0-3) Basophils (%) (Auto) 1 % (0-3) Neutrophils # (Auto) 5.3 x10^3uL (1.8-7.7) Lymphocytes # (Auto) 1.0 x10^3/uL (1.0-4.8) Monocytes # (Auto) 0.9 x10^3/uL (0.0-1.1) Eosinophils # (Auto) 0.2 x10^3/uL (0.0-0.7) Basophils # (Auto) 0.0 x10^3/uL (0.0-0.2) Sodium Level 139 mmol/L (136-145) Potassium Level 4.5 mmol/L (3.5-5.1) Chloride Level 99 mmol/L (98-107) Carbon Dioxide Level 29 mmol/L (21-32) Anion Gap 11 (6-14) Blood Urea Nitrogen 24 mg/dL (7-20) Creatinine 6.6 mg/dL (0.6-1.0) Estimated GFR (Cockcroft-Gault) 7.2 Glucose Level 115 mg/dL (70-99) Calcium Level 9.0 mg/dL (8.5-10.1) Phosphorus Level 4.6 mg/dL (2.6-4.7) Albumin 3.2 g/dL (3.4-5.0) Glucose (Fingerstick) 105 mg/dL (70-99) Laboratory Tests Test 10/29/18 12:55 10/29/18 16:37 10/29/18 21:13 10/30/18 04:30 Glucose (Fingerstick) 73 mg/dL (70-99) 100 mg/dL (70-99) 162 mg/dL (70-99) White Blood Count 7.5 x10^3/uL (4.0-11.0) Red Blood Count 3.51 x10^6/uL (3.50-5.40) Hemoglobin 10.3 g/dL (12.0-15.5) Hematocrit 32.4 % (36.0-47.0) Mean Corpuscular Volume 92 fL (79-100) Mean Corpuscular Hemoglobin 29 pg (25-35) Mean Corpuscular Hemoglobin Concent 32 g/dL (31-37) Red Cell Distribution Width 16.9 % (11.5-14.5) Platelet Count 297 x10^3/uL (140-400) Neutrophils (%) (Auto) 71 % (31-73) Lymphocytes (%) (Auto) 13 % (24-48) Monocytes (%) (Auto) 12 % (0-9) Eosinophils (%) (Auto) 3 % (0-3) Basophils (%) (Auto) 1 % (0-3) Neutrophils # (Auto) 5.3 x10^3uL (1.8-7.7) Lymphocytes # (Auto) 1.0 x10^3/uL (1.0-4.8) Monocytes # (Auto) 0.9 x10^3/uL (0.0-1.1) Eosinophils # (Auto) 0.2 x10^3/uL (0.0-0.7) Basophils # (Auto) 0.0 x10^3/uL (0.0-0.2) Sodium Level 139 mmol/L (136-145) Potassium Level 4.5 mmol/L (3.5-5.1) Chloride Level 99 mmol/L (98-107) Carbon Dioxide Level 29 mmol/L (21-32) Anion Gap 11 (6-14) Blood Urea Nitrogen 24 mg/dL (7-20) Creatinine 6.6 mg/dL (0.6-1.0) Estimated GFR (Cockcroft-Gault) 7.2 Glucose Level 115 mg/dL (70-99) Calcium Level 9.0 mg/dL (8.5-10.1) Phosphorus Level 4.6 mg/dL (2.6-4.7) Albumin 3.2 g/dL (3.4-5.0) Test 10/30/18 07:43 Glucose (Fingerstick) 105 mg/dL (70-99) Medications Current Medications Aspirin (Margie Aspirin) 325 mg 1X ONCE PO Last administered on 10/24/18 14:51 ; Start 10/24/18 at 14:45; Stop 10/24/18 at 14:46; Status DC Fentanyl Citrate (Fentanyl 2ml Vial) 50 mcg 1X ONCE IV Last administered on 16:34; Start 10/24/18 at 15:00; Stop 10/24/18 at 15:01; Status DC Bumetanide (Bumex) 1 mg 1X ONCE IV Last administered on 10/24/18 16:35; Start 10/24/18 at 16:19; Stop 10/24/18 at 16:20; Status DC Calcium Gluconate (Calcium Gluconate) 1,000 mg 1X ONCE IVP Last administered on 10/24/18 16:34; Start 10/24/18 at 16:15; Stop 10/24/18 at 16:19; Status DC Insulin Human Regular (HumuLIN R VIAL) 10 unit 1X ONCE IV Last administered on 10/24/18 16:36; Start 10/24/18 at 16:15; Stop 10/24/18 at 16:19; Status DC Dextrose (Dextrose 50%-Water Syringe) 25 gm 1X ONCE IV Last administered on 16:35; Start 10/24/18 at 16:15; Stop 10/24/18 at 16:19; Status DC Nitroglycerin (Nitro-Bid Oint) 1 inch 1X ONCE TP Last administered on 17:15; Start 10/24/18 at 17:15; Stop 10/24/18 at 17:16; Status DC Sodium Polystyrene Sulfonate (Kayexalate) 30 gm 1X ONCE PO Last administered on 10/24/18 17:16; Start 10/24/18 at 17:15; Stop 10/24/18 at 17:16; Status DC Ondansetron HCl (Zofran) 4 mg PRN Q8HRS PRN IV NAUSEA/VOMITING; Start 10/24/18 at 17:15; Stop 10/25/18 at 17:14; Status DC Fentanyl Citrate (Fentanyl 2ml Vial) 50 mcg Q2HR PRN IV PAIN Last administered on 10/25/18at 10:47; Start 10/24/18 at 17:15; Stop 10/25/18 at 17:14; Status DC Insulin Human Lispro (HumaLOG) 0-5 UNITS TIDWMEALS SQ ; Start 10/25/18 at 08:00 Dextrose (Dextrose 50%-Water Syringe) 12.5 gm PRN Q15MIN PRN IV SEE COMMENTS; Start 10/24/18 at 17:30 Dextrose (Dextrose 50%-Water Syringe) 25 gm 1X ONCE IV Last administered on 10/24/18at 18:02; Start 10/24/18 at 18:00; Stop 10/24/18 at 18:04; Status DC Hydralazine HCl (Apresoline Inj) 20 mg 1X ONCE IVP Last administered on at 18:09; Start 10/24/18 at 18:15; Stop 10/24/18 at 18:16; Status DC Ceftriaxone Sodium (Rocephin) 1 gm 1X ONCE IVP Last administered on 10/24/18at 20:22; Start 10/24/18 at 19:30; Stop 10/24/18 at 19:31; Status DC Heparin Sodium (Porcine) (Heparin Sodium) 5,000 unit Q8HRS SQ Last administered on 10/25/18at 05:46; Start 10/24/18 at 22:00; Stop 10/25/18 at 10:18; Status DC Albuterol Sulfate (Ventolin Neb Soln) 2.5 mg PRN Q6HRS PRN INH SHORTNESS OF BREATH; Start 10/24/18 at 19:45 Amlodipine Besylate (Norvasc) 10 mg PRN DAILY PRN PO HYPERTENSION, SEE COMMENTS ; Start 10/24/18 at 19:45 Aspirin (Ecotrin) 81 mg DAILY PO Last administered on 10/30/18at 08:58; Start 10/25/18 at 09:00 Cinacalcet (Sensipar) 30 mg DAILYWSUP PO Last administered on 10/29/18at 16:59; Start 10/25/18 at 17:00 Clonidine HCl (Catapres Tts-2) 1 patch WEEKLY TD ; Start 10/31/18 at 09:00 Clonidine HCl (Catapres) 0.2 mg BID PO ; Start 10/24/18 at 21:00; Stop 10/24/18 at 21:00; Status DC Doxycycline Hyclate (Vibra-Tab) 100 mg BID PO ; Start 10/24/18 at 21:00; Stop 10/24/18 at 21:00; Status DC Ferrous Sulfate (Feosol) 325 mg DAILY PO Last administered on 10/30/18at 08:58; Start 10/25/18 at 09:00 Furosemide (Lasix) 40 mg DAILY PO Last administered on 10/26/18at 14:35; Start at 09:00; Stop 10/27/18 at 13:56; Status DC Calcium Acetate (Phoslo) 1,334 mg TIDWMEALS PO Last administered on 10/30/18at 08 :58; Start 10/25/18 at 08:00 Aspirin (Ecotrin) 325 mg 1X ONCE PO Last administered on 10/25/18at 10:35; Start 10/25/18 at 10:30; Stop 10/25/18 at 10:31; Status DC Heparin Sodium/ Dextrose 500 ml @ 0 mls/hr CONT PRN IV SEE I/O RECORD; Start at 10:15; Status UNV Heparin Sodium/ Dextrose 500 ml @ 0 mls/hr CONT PRN IV SEE I/O RECORD Last administered on 10/25/18at 10:41; Start 10/25/18 at 10:30; Stop 10/26/18 at 16:24; Status DC Heparin Sodium (Porcine) (Heparin Sodium) 2,300 unit PRN Q6HRS PRN IV FOR UFH LEVEL LESS THAN 0.2 Last administered on 10/25/18at 10:42; Start 10/25/18 at 10:30 ; Stop 10/27/18 at 10:32; Status DC Sodium Chloride 1,000 ml @ 1,000 mls/hr Q1H PRN IV hypotension; Start 10/25/18 at 10:19; Stop 10/25/18 at 16:18; Status DC Sodium Chloride 1,000 ml @ 400 mls/hr Q2H30M PRN IV PATENCY; Start 10/25/18 at 10:19; Stop 10/25/18 at 22:18; Status DC Info (PHARMACY MONITORING -- do not chart) 1 each PRN DAILY PRN MC SEE COMMENTS ; Start 10/25/18 at 10:30; Stop 10/27/18 at 08:18; Status DC Info (Anti-Coagulation Monitoring By Pharmacy) 1 each PRN DAILY PRN MC SEE COMMENTS Last administered on 10/26/18 11:24; Start 10/25/18 at 10:30; Stop at 10:32; Status DC Atorvastatin Calcium (Lipitor) 10 mg QHS PO Last administered on 10/29/18at 20:47 ; Start 10/25/18 at 21:00 Fentanyl Citrate (Fentanyl 2ml Vial) 50 mcg PRN Q2HR PRN IV SEVERE PAIN Last administered on 10/30/18at 09:11; Start 10/26/18 at 08:30 Lidocaine HCl (Lidocaine 1% 20ml Vial) 20 ml STK-MED ONCE .ROUTE ; Start at 10:03; Stop 10/26/18 at 10:05; Status DC Heparin Sodium/ Sodium Chloride 500 ml @ As Directed STK-MED ONCE .ROUTE ; Start 10/26/18 at 10:03; Stop 10/26/18 at 10:05; Status DC Iodixanol (Visipaque 320) 100 ml STK-MED ONCE .ROUTE ; Start 10/26/18 at 10:52; Stop 10/26/18 at 10:54; Status DC Midazolam HCl (Versed) 2 mg STK-MED ONCE .ROUTE ; Start 10/26/18 at 11:18; Stop 10/26/18 at 11:20; Status DC Fentanyl Citrate (Fentanyl 2ml Vial) 100 mcg STK-MED ONCE .ROUTE ; Start at 11:18; Stop 10/26/18 at 11:20; Status DC Heparin Sodium/ Sodium Chloride (HEPARIN for ARTERIAL LINE FLUSH) 1,000 unit 1X ONCE IART Last administered on 10/26/18at 12:01; Start 10/26/18 at 12:00; Stop 10/26/18 at 12:01; Status DC Midazolam HCl (Versed) 1 mg 1X ONCE IV Last administered on 10/26/18at 12:01; Start 10/26/18 at 12:00; Stop 10/26/18 at 12:01; Status DC Fentanyl Citrate (Fentanyl 2ml Vial) 50 mcg 1X ONCE IV Last administered on 10/26/18at 12:02; Start 10/26/18 at 12:00; Stop 10/26/18 at 12:01; Status DC Iodixanol (Visipaque 320) 117 ml 1X ONCE IART Last administered on 10/26/18at 12 :01; Start 10/26/18 at 12:00; Stop 10/26/18 at 12:01; Status DC Lidocaine HCl 18 ml 1X ONCE IJ Last administered on 10/26/18at 11:22; Start 10/26 at 12:00; Stop 10/26/18 at 12:01; Status DC Sodium Chloride (Normal Saline Flush) 3 ml QSHIFT PRN IV AFTER MEDS AND BLOOD DRAWS; Start 10/26/18 at 12:15 Nitroglycerin (Nitrostat) 0.4 mg PRN Q5MIN PRN SL CHEST PAIN; Start 10/26/18 at 12:15 Sodium Chloride 1,000 ml @ 1,000 mls/hr Q1H PRN IV hypotension; Start 10/27/18 at 08:10; Stop 10/27/18 at 14:09; Status DC Sodium Chloride 1,000 ml @ 400 mls/hr Q2H30M PRN IV PATENCY; Start 10/27/18 at 08:10; Stop 10/27/18 at 20:09; Status DC Info (PHARMACY MONITORING -- do not chart) 1 each PRN DAILY PRN MC SEE COMMENTS ; Start 10/27/18 at 08:15 Hydromorphone HCl (Dilaudid) 0.5 mg PRN Q4HRS PRN IVP MODERATE PAIN Last administered on 10/29/18at 03:09; Start 10/27/18 at 14:45 Acetaminophen/ Hydrocodone Bitart (Lortab 5/325) 1 tab PRN Q6HRS PRN PO PAIN Last administered on 10/30/18at 04:23; Start 10/27/18 at 14:45 Naloxone HCl (Narcan) 0.4 mg PRN Q2MIN PRN IV SEE COMMENTS; Start 10/27/18 at 14 :45 Clopidogrel Bisulfate (Plavix) 75 mg DAILYWBKFT PO Last administered on at 08:58; Start 10/27/18 at 18:00 Iodixanol (Visipaque 320) 100 ml STK-MED ONCE .ROUTE ; Start 10/28/18 at 13:36; Stop 10/28/18 at 13:39; Status DC Lidocaine/Sodium Bicarbonate (Buffered Lidocaine 1%) 3 ml STK-MED ONCE .ROUTE ; Start 10/28/18 at 13:37; Stop 10/28/18 at 13:39; Status DC Heparin Sodium/ Sodium Chloride 1,000 ml @ As Directed STK-MED ONCE .ROUTE ; Start 10/28/18 at 13:37; Stop 10/28/18 at 13:39; Status DC Iodixanol (Visipaque 320) 50 ml STK-MED ONCE .ROUTE ; Start 10/28/18 at 13:38; Stop 10/28/18 at 13:39; Status DC Midazolam HCl (Versed) 2 mg STK-MED ONCE .ROUTE ; Start 10/28/18 at 14:22; Stop 10/28/18 at 14:25; Status DC Fentanyl Citrate (Fentanyl 2ml Vial) 100 mcg STK-MED ONCE .ROUTE ; Start at 14:23; Stop 10/28/18 at 14:25; Status DC Heparin Sodium (Porcine) (Heparin Sodium) 10,000 unit STK-MED ONCE .ROUTE ; Start 10/28/18 at 14:23; Stop 10/28/18 at 14:25; Status DC Heparin Sodium/ Sodium Chloride (HEPARIN for ARTERIAL LINE FLUSH) 1,000 unit 1X ONCE IART Last administered on 10/28/18at 15:15; Start 10/28/18 at 15:15; Stop 10/28/18 at 15:27; Status DC Lidocaine/Sodium Bicarbonate (Buffered Lidocaine 1%) 3 ml 1X ONCE IJ Last administered on 10/28/18at 15:15; Start 10/28/18 at 15:15; Stop 10/28/18 at 15:27; Status DC Midazolam HCl (Versed) 2 mg 1X ONCE IV Last administered on 10/28/18 15:15; Start 10/28/18 at 15:15; Stop 10/28/18 at 15:27; Status DC Fentanyl Citrate (Fentanyl 2ml Vial) 100 mcg 1X ONCE IV Last administered on 15:15; Start 10/28/18 at 15:15; Stop 10/28/18 at 15:27; Status DC Heparin Sodium (Porcine) (Heparin Sodium) 5,000 unit 1X ONCE IV Last administered on 10/28/18at 15:15; Start 10/28/18 at 15:15; Stop 10/28/18 at 15:27; Status DC Iodixanol (Visipaque 320) 50 ml 1X ONCE IART Last administered on 10/28/18at 15: 15; Start 10/28/18 at 15:15; Stop 10/28/18 at 15:27; Status DC Iodixanol (Visipaque 320) 100 ml STK-MED ONCE .ROUTE ; Start 10/28/18 at 15:33; Stop 10/28/18 at 15:35; Status DC Iodixanol (Visipaque 320) 100 ml 1X ONCE IART Last administered on 10/28/18at 15 :45; Start 10/28/18 at 15:45; Stop 10/28/18 at 15:46; Status DC Info (CONTRAST GIVEN -- Rx MONITORING) 1 each PRN DAILY PRN MC SEE COMMENTS; Start 10/28/18 at 15:45; Stop 10/30/18 at 15:44 Heparin Sodium/ Sodium Chloride 500 ml @ As Directed STK-MED ONCE .ROUTE ; Start 10/28/18 at 15:38; Stop 10/28/18 at 15:40; Status DC Sodium Chloride 1,000 ml @ 1,000 mls/hr Q1H PRN IV hypotension; Start 10/29/18 at 09:18; Stop 10/29/18 at 15:17; Status DC Sodium Chloride 1,000 ml @ 400 mls/hr Q2H30M PRN IV PATENCY; Start 10/29/18 at 09:18; Stop 10/29/18 at 21:17; Status DC Info (PHARMACY MONITORING -- do not chart) 1 each PRN DAILY PRN MC SEE COMMENTS ; Start 10/29/18 at 09:30 Active Scripts Active Proair Hfa Inhaler (Albuterol Sulfate) 8.5 Gm Hfa.aer.ad 1 Puff INH PRN Q6HRS PRN 14 Days Doxycycline Hyclate 100 Mg Tablet 100 Mg PO BID 7 Days Reported Clopidogrel (Clopidogrel Bisulfate) 75 Mg Tablet 1 Tab PO DAILY Catapres-Tts 2 (Clonidine) 1 Each Patch.tdwk 1 Each TD WEEKLY Clonidine Hcl 0.2 Mg Tablet 0.2 Mg PO BID Dialyvite [place] D Tablet (Multivitamin, Min Cmb#25/Fa/D3) 1 Each Tablet 1 Each PO DAILY Renvela (Sevelamer Carbonate) 800 Mg Tablet 2 Tab PO TIDWMEALHC Sensipar (Cinacalcet Hcl) 30 Mg Tablet 1 Tab PO DAILYWSUP Calcium Acetate 667 Mg Tablet 1,334 Mg PO TIDWMEALS Lovastatin 10 Mg Tablet 10 Mg PO HS Losartan Potassium 100 Mg Tablet 100 Mg PO DAILY Amlodipine Besylate 10 Mg Tablet 10 Mg PO PRN DAILY PRN Ferrous Sulfate 325 Mg Tablet 1 Tab PO DAILY Lasix (Furosemide) 40 Mg Tablet 1 Tab PO DAILY Aspir 81 (Aspirin) 81 Mg Tablet.dr 1 Tab PO DAILY Vitals/I & O Vital Sign - Last 24 Hours 10/29/18 10/29/18 10/29/18 10/29/18 15:00 16:58 19:00 20:00 Temp 97.9 98.8 97.9 98.8 Pulse 85 91 Resp 19 B/P (MAP) 105/39 (61) 95/54 (68) Pulse Ox 97 96 O2 Delivery Room Air Room Air Room Air Room Air O2 Flow Rate 2.0 10/29/18 10/30/18 10/30/18 10/30/18 23:05 03:05 04:23 05:30 Temp 98.3 98.5 98.3 98.5 Pulse 88 88 Resp 17 17 20 B/P (MAP) 144/66 (92) 144/73 (96) Pulse Ox 96 95 95 O2 Delivery Room Air Room Air Room Air O2 Flow Rate 2.0 10/30/18 10/30/18 10/30/18 10/30/18 06:31 07:30 08:00 09:11 Temp 97.7 97.7 Pulse 87 Resp 20 16 14 B/P (MAP) 128/58 (81) Pulse Ox 93 O2 Delivery Room Air Room Air Room Air Room Air 10/30/18 09:45 Resp 12 O2 Delivery Room Air Intake and Output 10/29/18 10/29/18 10/30/18 15:01 23:01 07:01 Intake Total 350 ml Output Total 30 ml Balance 320 ml TRAM BYRD MD Oct 30, 2018 11:35
--- NOTE | 2018-10-30 13:53 | PDOC ---
PROGRESS NOTES Subjective Subjective Pt seen and examined -- she is still undecided about goals of care -- stated "talk to my family" Objective Objective Vital Signs Date Time Temp Pulse Resp B/P (MAP) Pulse Ox O2 Delivery O2 Flow Rate FiO2 10/30/18 11:10 97.6 83 20 125/56 (79) 97 Room Air 97.6 10/30/18 05:30 2.0 Intake and Output 10/30/18 07:01 Intake Total 350 ml Output Total 30 ml Balance 320 ml Intake Oral 350 ml Output Urine Total 30 ml # Bowel Movements 3 Physical Exam Physical Exam right foot minimal signals, motor intact, sensory intact, pain present but somewhat improved Assessment Assessment Problems Medical Problems: (1) Hyperkalemia Status: Acute Plan Plan of Care severe PAD Not an open surgical candidate Palliative care has seen her -- awaiting decisions from the family only option would be arm access (possibly loop graft for HD) and perc intervention for her right iliac and PFA Will see what her / family thoughts are on comfort care Comment Review of Relevant I have reviewed the following items ivcente (where applicable) has been applied. Labs Laboratory Tests Test 10/28/18 17:08 10/28/18 20:18 10/29/18 03:55 10/29/18 07:19 Glucose (Fingerstick) 63 mg/dL (70-99) 162 mg/dL (70-99) 98 mg/dL (70-99) White Blood Count 6.1 x10^3/uL (4.0-11.0) Red Blood Count 3.40 x10^6/uL (3.50-5.40) Hemoglobin 9.8 g/dL (12.0-15.5) Hematocrit 31.4 % (36.0-47.0) Mean Corpuscular Volume 92 fL (79-100) Mean Corpuscular Hemoglobin 29 pg (25-35) Mean Corpuscular Hemoglobin Concent 31 g/dL (31-37) Red Cell Distribution Width 17.1 % (11.5-14.5) Platelet Count 295 x10^3/uL (140-400) Neutrophils (%) (Auto) 66 % (31-73) Lymphocytes (%) (Auto) 14 % (24-48) Monocytes (%) (Auto) 14 % (0-9) Eosinophils (%) (Auto) 5 % (0-3) Basophils (%) (Auto) 1 % (0-3) Neutrophils # (Auto) 4.0 x10^3uL (1.8-7.7) Lymphocytes # (Auto) 0.8 x10^3/uL (1.0-4.8) Monocytes # (Auto) 0.9 x10^3/uL (0.0-1.1) Eosinophils # (Auto) 0.3 x10^3/uL (0.0-0.7) Basophils # (Auto) 0.0 x10^3/uL (0.0-0.2) Sodium Level 139 mmol/L (136-145) Potassium Level 4.7 mmol/L (3.5-5.1) Chloride Level 99 mmol/L (98-107) Carbon Dioxide Level 27 mmol/L (21-32) Anion Gap 13 (6-14) Blood Urea Nitrogen 31 mg/dL (7-20) Creatinine 8.0 mg/dL (0.6-1.0) Estimated GFR (Cockcroft-Gault) 5.8 Glucose Level 100 mg/dL (70-99) Calcium Level 9.1 mg/dL (8.5-10.1) Phosphorus Level 6.7 mg/dL (2.6-4.7) Albumin 3.0 g/dL (3.4-5.0) Test 10/29/18 12:55 10/29/18 16:37 10/29/18 21:13 10/30/18 04:30 Glucose (Fingerstick) 73 mg/dL (70-99) 100 mg/dL (70-99) 162 mg/dL (70-99) White Blood Count 7.5 x10^3/uL (4.0-11.0) Red Blood Count 3.51 x10^6/uL (3.50-5.40) Hemoglobin 10.3 g/dL (12.0-15.5) Hematocrit 32.4 % (36.0-47.0) Mean Corpuscular Volume 92 fL (79-100) Mean Corpuscular Hemoglobin 29 pg (25-35) Mean Corpuscular Hemoglobin Concent 32 g/dL (31-37) Red Cell Distribution Width 16.9 % (11.5-14.5) Platelet Count 297 x10^3/uL (140-400) Neutrophils (%) (Auto) 71 % (31-73) Lymphocytes (%) (Auto) 13 % (24-48) Monocytes (%) (Auto) 12 % (0-9) Eosinophils (%) (Auto) 3 % (0-3) Basophils (%) (Auto) 1 % (0-3) Neutrophils # (Auto) 5.3 x10^3uL (1.8-7.7) Lymphocytes # (Auto) 1.0 x10^3/uL (1.0-4.8) Monocytes # (Auto) 0.9 x10^3/uL (0.0-1.1) Eosinophils # (Auto) 0.2 x10^3/uL (0.0-0.7) Basophils # (Auto) 0.0 x10^3/uL (0.0-0.2) Sodium Level 139 mmol/L (136-145) Potassium Level 4.5 mmol/L (3.5-5.1) Chloride Level 99 mmol/L (98-107) Carbon Dioxide Level 29 mmol/L (21-32) Anion Gap 11 (6-14) Blood Urea Nitrogen 24 mg/dL (7-20) Creatinine 6.6 mg/dL (0.6-1.0) Estimated GFR (Cockcroft-Gault) 7.2 Glucose Level 115 mg/dL (70-99) Calcium Level 9.0 mg/dL (8.5-10.1) Phosphorus Level 4.6 mg/dL (2.6-4.7) Albumin 3.2 g/dL (3.4-5.0) Test 10/30/18 07:43 10/30/18 11:47 Glucose (Fingerstick) 105 mg/dL (70-99) 81 mg/dL (70-99) Laboratory Tests Test 10/29/18 16:37 10/29/18 21:13 10/30/18 04:30 10/30/18 07:43 Glucose (Fingerstick) 100 mg/dL (70-99) 162 mg/dL (70-99) 105 mg/dL (70-99) White Blood Count 7.5 x10^3/uL (4.0-11.0) Red Blood Count 3.51 x10^6/uL (3.50-5.40) Hemoglobin 10.3 g/dL (12.0-15.5) Hematocrit 32.4 % (36.0-47.0) Mean Corpuscular Volume 92 fL (79-100) Mean Corpuscular Hemoglobin 29 pg (25-35) Mean Corpuscular Hemoglobin Concent 32 g/dL (31-37) Red Cell Distribution Width 16.9 % (11.5-14.5) Platelet Count 297 x10^3/uL (140-400) Neutrophils (%) (Auto) 71 % (31-73) Lymphocytes (%) (Auto) 13 % (24-48) Monocytes (%) (Auto) 12 % (0-9) Eosinophils (%) (Auto) 3 % (0-3) Basophils (%) (Auto) 1 % (0-3) Neutrophils # (Auto) 5.3 x10^3uL (1.8-7.7) Lymphocytes # (Auto) 1.0 x10^3/uL (1.0-4.8) Monocytes # (Auto) 0.9 x10^3/uL (0.0-1.1) Eosinophils # (Auto) 0.2 x10^3/uL (0.0-0.7) Basophils # (Auto) 0.0 x10^3/uL (0.0-0.2) Sodium Level 139 mmol/L (136-145) Potassium Level 4.5 mmol/L (3.5-5.1) Chloride Level 99 mmol/L (98-107) Carbon Dioxide Level 29 mmol/L (21-32) Anion Gap 11 (6-14) Blood Urea Nitrogen 24 mg/dL (7-20) Creatinine 6.6 mg/dL (0.6-1.0) Estimated GFR (Cockcroft-Gault) 7.2 Glucose Level 115 mg/dL (70-99) Calcium Level 9.0 mg/dL (8.5-10.1) Phosphorus Level 4.6 mg/dL (2.6-4.7) Albumin 3.2 g/dL (3.4-5.0) Test 10/30/18 11:47 Glucose (Fingerstick) 81 mg/dL (70-99) Medications Current Medications Aspirin (Margie Aspirin) 325 mg 1X ONCE PO Last administered on 10/24/18at 14:51 ; Start 10/24/18 at 14:45; Stop 10/24/18 at 14:46; Status DC Fentanyl Citrate (Fentanyl 2ml Vial) 50 mcg 1X ONCE IV Last administered on 16:34; Start 10/24/18 at 15:00; Stop 10/24/18 at 15:01; Status DC Bumetanide (Bumex) 1 mg 1X ONCE IV Last administered on 10/24/18 16:35; Start 10/24/18 at 16:19; Stop 10/24/18 at 16:20; Status DC Calcium Gluconate (Calcium Gluconate) 1,000 mg 1X ONCE IVP Last administered on 10/24/18 16:34; Start 10/24/18 at 16:15; Stop 10/24/18 at 16:19; Status DC Insulin Human Regular (HumuLIN R VIAL) 10 unit 1X ONCE IV Last administered on 10/24/18 16:36; Start 10/24/18 at 16:15; Stop 10/24/18 at 16:19; Status DC Dextrose (Dextrose 50%-Water Syringe) 25 gm 1X ONCE IV Last administered on 16:35; Start 10/24/18 at 16:15; Stop 10/24/18 at 16:19; Status DC Nitroglycerin (Nitro-Bid Oint) 1 inch 1X ONCE TP Last administered on 17:15; Start 10/24/18 at 17:15; Stop 10/24/18 at 17:16; Status DC Sodium Polystyrene Sulfonate (Kayexalate) 30 gm 1X ONCE PO Last administered on 10/24/18 17:16; Start 10/24/18 at 17:15; Stop 10/24/18 at 17:16; Status DC Ondansetron HCl (Zofran) 4 mg PRN Q8HRS PRN IV NAUSEA/VOMITING; Start 10/24/18 at 17:15; Stop 10/25/18 at 17:14; Status DC Fentanyl Citrate (Fentanyl 2ml Vial) 50 mcg Q2HR PRN IV PAIN Last administered on 10/25/18at 10:47; Start 10/24/18 at 17:15; Stop 10/25/18 at 17:14; Status DC Insulin Human Lispro (HumaLOG) 0-5 UNITS TIDWMEALS SQ ; Start 10/25/18 at 08:00 Dextrose (Dextrose 50%-Water Syringe) 12.5 gm PRN Q15MIN PRN IV SEE COMMENTS; Start 10/24/18 at 17:30 Dextrose (Dextrose 50%-Water Syringe) 25 gm 1X ONCE IV Last administered on 10/24/18at 18:02; Start 10/24/18 at 18:00; Stop 10/24/18 at 18:04; Status DC Hydralazine HCl (Apresoline Inj) 20 mg 1X ONCE IVP Last administered on at 18:09; Start 10/24/18 at 18:15; Stop 10/24/18 at 18:16; Status DC Ceftriaxone Sodium (Rocephin) 1 gm 1X ONCE IVP Last administered on 10/24/18at 20:22; Start 10/24/18 at 19:30; Stop 10/24/18 at 19:31; Status DC Heparin Sodium (Porcine) (Heparin Sodium) 5,000 unit Q8HRS SQ Last administered on 10/25/18at 05:46; Start 10/24/18 at 22:00; Stop 10/25/18 at 10:18; Status DC Albuterol Sulfate (Ventolin Neb Soln) 2.5 mg PRN Q6HRS PRN INH SHORTNESS OF BREATH; Start 10/24/18 at 19:45 Amlodipine Besylate (Norvasc) 10 mg PRN DAILY PRN PO HYPERTENSION, SEE COMMENTS ; Start 10/24/18 at 19:45 Aspirin (Ecotrin) 81 mg DAILY PO Last administered on 10/30/18at 08:58; Start 10/25/18 at 09:00 Cinacalcet (Sensipar) 30 mg DAILYWSUP PO Last administered on 10/29/18at 16:59; Start 10/25/18 at 17:00 Clonidine HCl (Catapres Tts-2) 1 patch WEEKLY TD ; Start 10/31/18 at 09:00 Clonidine HCl (Catapres) 0.2 mg BID PO ; Start 10/24/18 at 21:00; Stop 10/24/18 at 21:00; Status DC Doxycycline Hyclate (Vibra-Tab) 100 mg BID PO ; Start 10/24/18 at 21:00; Stop 10/24/18 at 21:00; Status DC Ferrous Sulfate (Feosol) 325 mg DAILY PO Last administered on 10/30/18at 08:58; Start 10/25/18 at 09:00 Furosemide (Lasix) 40 mg DAILY PO Last administered on 10/26/18at 14:35; Start at 09:00; Stop 10/27/18 at 13:56; Status DC Calcium Acetate (Phoslo) 1,334 mg TIDWMEALS PO Last administered on 10/30/18at 12 :28; Start 10/25/18 at 08:00 Aspirin (Ecotrin) 325 mg 1X ONCE PO Last administered on 10/25/18at 10:35; Start 10/25/18 at 10:30; Stop 10/25/18 at 10:31; Status DC Heparin Sodium/ Dextrose 500 ml @ 0 mls/hr CONT PRN IV SEE I/O RECORD; Start at 10:15; Status UNV Heparin Sodium/ Dextrose 500 ml @ 0 mls/hr CONT PRN IV SEE I/O RECORD Last administered on 10/25/18at 10:41; Start 10/25/18 at 10:30; Stop 10/26/18 at 16:24; Status DC Heparin Sodium (Porcine) (Heparin Sodium) 2,300 unit PRN Q6HRS PRN IV FOR UFH LEVEL LESS THAN 0.2 Last administered on 10/25/18at 10:42; Start 10/25/18 at 10:30 ; Stop 10/27/18 at 10:32; Status DC Sodium Chloride 1,000 ml @ 1,000 mls/hr Q1H PRN IV hypotension; Start 10/25/18 at 10:19; Stop 10/25/18 at 16:18; Status DC Sodium Chloride 1,000 ml @ 400 mls/hr Q2H30M PRN IV PATENCY; Start 10/25/18 at 10:19; Stop 10/25/18 at 22:18; Status DC Info (PHARMACY MONITORING -- do not chart) 1 each PRN DAILY PRN MC SEE COMMENTS ; Start 10/25/18 at 10:30; Stop 10/27/18 at 08:18; Status DC Info (Anti-Coagulation Monitoring By Pharmacy) 1 each PRN DAILY PRN MC SEE COMMENTS Last administered on 10/26/18at 11:24; Start 10/25/18 at 10:30; Stop at 10:32; Status DC Atorvastatin Calcium (Lipitor) 10 mg QHS PO Last administered on 10/29/18at 20:47 ; Start 10/25/18 at 21:00 Fentanyl Citrate (Fentanyl 2ml Vial) 50 mcg PRN Q2HR PRN IV SEVERE PAIN Last administered on 10/30/18at 09:11; Start 10/26/18 at 08:30 Lidocaine HCl (Lidocaine 1% 20ml Vial) 20 ml STK-MED ONCE .ROUTE ; Start at 10:03; Stop 10/26/18 at 10:05; Status DC Heparin Sodium/ Sodium Chloride 500 ml @ As Directed STK-MED ONCE .ROUTE ; Start 10/26/18 at 10:03; Stop 10/26/18 at 10:05; Status DC Iodixanol (Visipaque 320) 100 ml STK-MED ONCE .ROUTE ; Start 10/26/18 at 10:52; Stop 10/26/18 at 10:54; Status DC Midazolam HCl (Versed) 2 mg STK-MED ONCE .ROUTE ; Start 10/26/18 at 11:18; Stop 10/26/18 at 11:20; Status DC Fentanyl Citrate (Fentanyl 2ml Vial) 100 mcg STK-MED ONCE .ROUTE ; Start at 11:18; Stop 10/26/18 at 11:20; Status DC Heparin Sodium/ Sodium Chloride (HEPARIN for ARTERIAL LINE FLUSH) 1,000 unit 1X ONCE IART Last administered on 10/26/18at 12:01; Start 10/26/18 at 12:00; Stop 10/26/18 at 12:01; Status DC Midazolam HCl (Versed) 1 mg 1X ONCE IV Last administered on 10/26/18at 12:01; Start 10/26/18 at 12:00; Stop 10/26/18 at 12:01; Status DC Fentanyl Citrate (Fentanyl 2ml Vial) 50 mcg 1X ONCE IV Last administered on 10/26/18at 12:02; Start 10/26/18 at 12:00; Stop 10/26/18 at 12:01; Status DC Iodixanol (Visipaque 320) 117 ml 1X ONCE IART Last administered on 10/26/18at 12 :01; Start 10/26/18 at 12:00; Stop 10/26/18 at 12:01; Status DC Lidocaine HCl 18 ml 1X ONCE IJ Last administered on 10/26/18at 11:22; Start 10/26 at 12:00; Stop 10/26/18 at 12:01; Status DC Sodium Chloride (Normal Saline Flush) 3 ml QSHIFT PRN IV AFTER MEDS AND BLOOD DRAWS; Start 10/26/18 at 12:15 Nitroglycerin (Nitrostat) 0.4 mg PRN Q5MIN PRN SL CHEST PAIN; Start 10/26/18 at 12:15 Sodium Chloride 1,000 ml @ 1,000 mls/hr Q1H PRN IV hypotension; Start 10/27/18 at 08:10; Stop 10/27/18 at 14:09; Status DC Sodium Chloride 1,000 ml @ 400 mls/hr Q2H30M PRN IV PATENCY; Start 10/27/18 at 08:10; Stop 10/27/18 at 20:09; Status DC Info (PHARMACY MONITORING -- do not chart) 1 each PRN DAILY PRN MC SEE COMMENTS ; Start 10/27/18 at 08:15; Status Cancel Hydromorphone HCl (Dilaudid) 0.5 mg PRN Q4HRS PRN IVP MODERATE PAIN Last administered on 10/29/18at 03:09; Start 10/27/18 at 14:45 Acetaminophen/ Hydrocodone Bitart (Lortab 5/325) 1 tab PRN Q6HRS PRN PO PAIN Last administered on 10/30/18at 04:23; Start 10/27/18 at 14:45 Naloxone HCl (Narcan) 0.4 mg PRN Q2MIN PRN IV SEE COMMENTS; Start 10/27/18 at 14 :45 Clopidogrel Bisulfate (Plavix) 75 mg DAILYWBKFT PO Last administered on at 08:58; Start 10/27/18 at 18:00 Iodixanol (Visipaque 320) 100 ml STK-MED ONCE .ROUTE ; Start 10/28/18 at 13:36; Stop 10/28/18 at 13:39; Status DC Lidocaine/Sodium Bicarbonate (Buffered Lidocaine 1%) 3 ml STK-MED ONCE .ROUTE ; Start 10/28/18 at 13:37; Stop 10/28/18 at 13:39; Status DC Heparin Sodium/ Sodium Chloride 1,000 ml @ As Directed STK-MED ONCE .ROUTE ; Start 10/28/18 at 13:37; Stop 10/28/18 at 13:39; Status DC Iodixanol (Visipaque 320) 50 ml STK-MED ONCE .ROUTE ; Start 10/28/18 at 13:38; Stop 10/28/18 at 13:39; Status DC Midazolam HCl (Versed) 2 mg STK-MED ONCE .ROUTE ; Start 10/28/18 at 14:22; Stop 10/28/18 at 14:25; Status DC Fentanyl Citrate (Fentanyl 2ml Vial) 100 mcg STK-MED ONCE .ROUTE ; Start at 14:23; Stop 10/28/18 at 14:25; Status DC Heparin Sodium (Porcine) (Heparin Sodium) 10,000 unit STK-MED ONCE .ROUTE ; Start 10/28/18 at 14:23; Stop 10/28/18 at 14:25; Status DC Heparin Sodium/ Sodium Chloride (HEPARIN for ARTERIAL LINE FLUSH) 1,000 unit 1X ONCE IART Last administered on 10/28/18at 15:15; Start 10/28/18 at 15:15; Stop 10/28/18 at 15:27; Status DC Lidocaine/Sodium Bicarbonate (Buffered Lidocaine 1%) 3 ml 1X ONCE IJ Last administered on 10/28/18at 15:15; Start 10/28/18 at 15:15; Stop 10/28/18 at 15:27; Status DC Midazolam HCl (Versed) 2 mg 1X ONCE IV Last administered on 10/28/18at 15:15; Start 10/28/18 at 15:15; Stop 10/28/18 at 15:27; Status DC Fentanyl Citrate (Fentanyl 2ml Vial) 100 mcg 1X ONCE IV Last administered on at 15:15; Start 10/28/18 at 15:15; Stop 10/28/18 at 15:27; Status DC Heparin Sodium (Porcine) (Heparin Sodium) 5,000 unit 1X ONCE IV Last administered on 10/28/18at 15:15; Start 10/28/18 at 15:15; Stop 10/28/18 at 15:27; Status DC Iodixanol (Visipaque 320) 50 ml 1X ONCE IART Last administered on 10/28/18at 15: 15; Start 10/28/18 at 15:15; Stop 10/28/18 at 15:27; Status DC Iodixanol (Visipaque 320) 100 ml STK-MED ONCE .ROUTE ; Start 10/28/18 at 15:33; Stop 10/28/18 at 15:35; Status DC Iodixanol (Visipaque 320) 100 ml 1X ONCE IART Last administered on 10/28/18at 15 :45; Start 10/28/18 at 15:45; Stop 10/28/18 at 15:46; Status DC Info (CONTRAST GIVEN -- Rx MONITORING) 1 each PRN DAILY PRN MC SEE COMMENTS; Start 10/28/18 at 15:45; Stop 10/30/18 at 15:44 Heparin Sodium/ Sodium Chloride 500 ml @ As Directed STK-MED ONCE .ROUTE ; Start 10/28/18 at 15:38; Stop 10/28/18 at 15:40; Status DC Sodium Chloride 1,000 ml @ 1,000 mls/hr Q1H PRN IV hypotension; Start 10/29/18 at 09:18; Stop 10/29/18 at 15:17; Status DC Sodium Chloride 1,000 ml @ 400 mls/hr Q2H30M PRN IV PATENCY; Start 10/29/18 at 09:18; Stop 10/29/18 at 21:17; Status DC Info (PHARMACY MONITORING -- do not chart) 1 each PRN DAILY PRN MC SEE COMMENTS ; Start 10/29/18 at 09:30 Active Scripts Active Proair Hfa Inhaler (Albuterol Sulfate) 8.5 Gm Hfa.aer.ad 1 Puff INH PRN Q6HRS PRN 14 Days Doxycycline Hyclate 100 Mg Tablet 100 Mg PO BID 7 Days Reported Clopidogrel (Clopidogrel Bisulfate) 75 Mg Tablet 1 Tab PO DAILY Catapres-Tts 2 (Clonidine) 1 Each Patch.tdwk 1 Each TD WEEKLY Clonidine Hcl 0.2 Mg Tablet 0.2 Mg PO BID Dialyvite [place] D Tablet (Multivitamin, Min Cmb#25/Fa/D3) 1 Each Tablet 1 Each PO DAILY Renvela (Sevelamer Carbonate) 800 Mg Tablet 2 Tab PO TIDWMEALHC Sensipar (Cinacalcet Hcl) 30 Mg Tablet 1 Tab PO DAILYWSUP Calcium Acetate 667 Mg Tablet 1,334 Mg PO TIDWMEALS Lovastatin 10 Mg Tablet 10 Mg PO HS Losartan Potassium 100 Mg Tablet 100 Mg PO DAILY Amlodipine Besylate 10 Mg Tablet 10 Mg PO PRN DAILY PRN Ferrous Sulfate 325 Mg Tablet 1 Tab PO DAILY Lasix (Furosemide) 40 Mg Tablet 1 Tab PO DAILY Aspir 81 (Aspirin) 81 Mg Tablet.dr 1 Tab PO DAILY Vitals/I & O Vital Sign - Last 24 Hours 10/29/18 10/29/18 10/29/18 10/29/18 15:00 16:58 19:00 20:00 Temp 97.9 98.8 97.9 98.8 Pulse 85 91 Resp 19 B/P (MAP) 105/39 (61) 95/54 (68) Pulse Ox 97 96 O2 Delivery Room Air Room Air Room Air Room Air O2 Flow Rate 2.0 10/29/18 10/30/18 10/30/18 10/30/18 23:05 03:05 04:23 05:30 Temp 98.3 98.5 98.3 98.5 Pulse 88 88 Resp 17 17 20 B/P (MAP) 144/66 (92) 144/73 (96) Pulse Ox 96 95 95 O2 Delivery Room Air Room Air Room Air O2 Flow Rate 2.0 10/30/18 10/30/18 10/30/18 10/30/18 06:31 07:30 08:00 09:11 Temp 97.7 97.7 Pulse 87 Resp 20 16 14 B/P (MAP) 128/58 (81) Pulse Ox 93 O2 Delivery Room Air Room Air Room Air Room Air 10/30/18 10/30/18 09:45 11:10 Temp 97.6 97.6 Pulse 83 Resp 12 20 B/P (MAP) 125/56 (79) Pulse Ox 97 O2 Delivery Room Air Room Air Intake and Output 10/29/18 10/29/18 10/30/18 15:01 23:01 07:01 Intake Total 350 ml Output Total 30 ml Balance 320 ml MIRIAM ORO MD Oct 30, 2018 13:53
[2018-10-30 15:15] VITALS: BP 107/39
[2018-10-30] MEDS: CINACALCET HCL 30 MG TABLET PO SCH (17:51)
[2018-10-30 19:21] VITALS: BP 108/47
[2018-10-30] MEDS: ATORVASTATIN CALCIUM 10 MG TABLET. PO SCH (21:38)
[2018-10-30 23:59] VITALS: BP 110/35
[2018-10-31 03:59] VITALS: BP 115/47
[2018-10-31] MEDS: HYDROcodone/APAP 5/325MG 1 TAB TABLET PO PRN (06:09)
[2018-10-31 07:00] VITALS: BP 139/63
[2018-10-31] MEDS: fentaNYL PF VIAL 100 MCG/2 ML VIAL IV PRN ×3 (07:41→17:11)
[2018-10-31] MEDS: INSULIN LISPRO 300 UNITS/3 ML INSULN.PEN. SQ SCH ×3 (08:00→17:00)
[2018-10-31] MEDS: ASPIRIN ENTERIC COATED 81 MG TABLET.DR. PO SCH (08:52)
[2018-10-31] MEDS: CALCIUM ACETATE 667 MG CAPSULE PO SCH ×3 (08:52→17:11)
[2018-10-31] MEDS: FERROUS SULFATE 325 MG TABLET. PO SCH (08:52)
[2018-10-31] MEDS: CLOPIDOGREL BISULFATE 75 MG TABLET PO SCH (08:52)
[2018-10-31] MEDS ORDERED: cloNIDine TTS-2 1 PATCH PATCH TD SCH (09:00)
--- NOTE | 2018-10-31 10:33 | PDOC ---
PROGRESS NOTES Chief Complaint Chief Complaint Edema of both lower legs, right sided CHF, Diastolic CHF, Mild pulmonary vascular congestion Elevated troponin i= .57 Superficial cellulitis both lower legs ESRD on dialysis Hyperkalemia Secondary pulmonary hypertension Anemia PVD Morbid obesity COPD Rt leg chronic wound Moderate diffuse arterial disease of the left lower extremity without any focal high-grade stenosis. 11/05/2017 Extensive coronary artery calcification by ct 2014 DIABETES Not an open surgical candidate Palliative care has seen her -- awaiting decisions History of Present Illness History of Present Illness 88 yr old AA female admitted with bilateral leg edema, superficial wounds both legs, elevated troponin i, hyperkalemia, known ESRD on dialysis, cxr c/w acute CHF. 10/25: Hypoglycemic overnight, corrected. Potassium 6 corrected to 5.7. RLE pain today exquisite to even light touch. She still c/o some SOB and non-productive cough. Troponin over 1 today now. Denies chest pain. Seen on dialysis 10/26: Feeling right leg pain and cold today. NO CP. has mild SOB. She underwent coronary angiography which demonstrated severe three-vessel coronary artery disease as well as femoral arteriogram demonstrating severe bilateral lower extremity peripheral vascular disease. Seen by CT Surgery for her three vessel CAD and recommended medical management 10/23 age and comorbidities, in line with patient wishes. 10/27: Dialysis went well. Overnight pain in her RLE was worse and after increase in pain medications to Dilaudid she slept well. Seen by vascular surgery planned for right iliac angioplasty vs stenting on 10/28. 10/30: patient has no complaints. today. 10/31 Not an open surgical candidate Palliative care has seen her -- awaiting choice right leg painful A/P: NSTEMI - with elevation in Trop 1.1, ST depressions, s/p LHC. continue plavix and ASA. off heparin drip. Pt has 3 vessel coronary disease turned down for revascularization, medical management Hyperkalemia - HD today Hyperphosphatemia - diet was liberalized to her home diet. Will cont her phoslo Right leg pain secondary to PVD in left leg. 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 vasc consulted. Patient has severe bilateral lower extremity PAD as noted on aortogram. 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 consulted palliative care ESRD - HD per nephro Acute on chronic diastolic CHF - UF per nephrology at dialysis DM2: stable Anemia - of chronic renal disease. monitor FULL CODE await hospice decision Inpatient for NSTEMI, PVD, hyperkalemia 10/27/18 Procedure(s) performed: Aortogram with bilateral lower extremity runoff CSHA:6 INDICATION FOR PROCEDURE The indication(s) include : Peripheral vascular disease with claudication. PROCEDURE NARRATIVE After explaining the risks, benefits and alternative options, informed consent was obtained from patient. Patient was brought to the cardiac Air Brush Decorator and her left groin was prepped and draped in the usual fashion. 20 mL of 2% lidocaine was infiltrated into the skin and subcutaneous tissues for local anesthesia. Arterial access was obtained the left common femoral artery and a 6 [place] sheath was inserted. Selective coronary angiography was performed that will be reported separately. 5 [place] pigtail catheter was then positioned in the distal descending aorta and aortogram with bilateral lower extremity runoff was performed. Patient tolerated the procedure well. Hemostasis was achieved using mynx closure device per there were no immediate complications. FINDINGS 1. No significant stenosis involving the distal descending aorta 2. 60% stenosis involving the distal segment of left common iliac artery. No significant stenosis involving the right common iliac artery. 3. The right external iliac artery showed 80% stenosis in the proximal segment. The left external iliac artery did not show any significant stenosis. 4. No significant stenosis involving bilateral common femoral arteries. 5. The right superficial femoral artery showed long 90-95% heavily calcified stenosis involving the proximal, mid and mid to distal segments. The left superficial femoral artery showed long chronic total occlusion involving the proximal and mid segments with distal reconstitution from collaterals. 6. No significant stenosis involving bilateral popliteal arteries. 7. There appears to be at least 2 vessel runoff proximally both lower extremities (anterior tibial and peroneal arteries). The mid to distal segments were not well visualized. 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 PROCEDURE NARRATIVE After explaining the risks, benefits and alternative options, informed consent was obtained from patient. Patient was brought to the cardiac Air Brush Decorator and her left groin was prepped and draped in the usual fashion. 20 mL of 2% lidocaine was infiltrated into the skin and subcutaneous tissues for local anesthesia. Arterial access was obtained the left common femoral artery and a 6 [place] sheath was inserted. Selective coronary angiography was performed that will be reported separately. 5 [place] pigtail catheter was then positioned in the distal descending aorta and aortogram with bilateral lower extremity runoff was performed. Patient tolerated the procedure well. Hemostasis was achieved using mynx closure device per there were no immediate complications. FINDINGS 1. No significant stenosis involving the distal descending aorta 2. 60% stenosis involving the distal segment of left common iliac artery. No significant stenosis involving the right common iliac artery. 3. The right external iliac artery showed 80% stenosis in the proximal segment. The left external iliac artery did not show any significant stenosis. 4. No significant stenosis involving bilateral common femoral arteries. 5. The right superficial femoral artery showed long 90-95% heavily calcified stenosis involving the proximal, mid and mid to distal segments. The left superficial femoral artery showed long chronic total occlusion involving the proximal and mid segments with distal reconstitution from collaterals. 6. No significant stenosis involving bilateral popliteal arteries. 7. There appears to be at least 2 vessel runoff proximally both lower extremities (anterior tibial and peroneal arteries). The mid to distal segments were not well visualized. Conclusion Severe bilateral lower extremity peripheral vascular disease Recommendations CTA to better visualize below the knee vessels followed by vascular surgery team consultation for possible surgical revascularization. Signed by : Jack Rivas, Electronically Approved : 10/26/2018 13:01:54 Laboratory Tests Test 10/30/18 11:47 10/30/18 16:52 10/30/18 20:32 10/31/18 08:33 Glucose (Fingerstick) 81 mg/dL (70-99) 91 mg/dL (70-99) 139 mg/dL (70-99) 111 mg/dL (70-99) Assessment and Plan Assessmemt and Plan Problems Medical Problems: (1) Hyperkalemia Status: Acute Comment Review of Relevant I have reviewed the following items vicente (where applicable) has been applied. Labs Laboratory Tests Test 10/29/18 12:55 10/29/18 16:37 10/29/18 21:13 10/30/18 04:30 Glucose (Fingerstick) 73 mg/dL (70-99) 100 mg/dL (70-99) 162 mg/dL (70-99) White Blood Count 7.5 x10^3/uL (4.0-11.0) Red Blood Count 3.51 x10^6/uL (3.50-5.40) Hemoglobin 10.3 g/dL (12.0-15.5) Hematocrit 32.4 % (36.0-47.0) Mean Corpuscular Volume 92 fL (79-100) Mean Corpuscular Hemoglobin 29 pg (25-35) Mean Corpuscular Hemoglobin Concent 32 g/dL (31-37) Red Cell Distribution Width 16.9 % (11.5-14.5) Platelet Count 297 x10^3/uL (140-400) Neutrophils (%) (Auto) 71 % (31-73) Lymphocytes (%) (Auto) 13 % (24-48) Monocytes (%) (Auto) 12 % (0-9) Eosinophils (%) (Auto) 3 % (0-3) Basophils (%) (Auto) 1 % (0-3) Neutrophils # (Auto) 5.3 x10^3uL (1.8-7.7) Lymphocytes # (Auto) 1.0 x10^3/uL (1.0-4.8) Monocytes # (Auto) 0.9 x10^3/uL (0.0-1.1) Eosinophils # (Auto) 0.2 x10^3/uL (0.0-0.7) Basophils # (Auto) 0.0 x10^3/uL (0.0-0.2) Sodium Level 139 mmol/L (136-145) Potassium Level 4.5 mmol/L (3.5-5.1) Chloride Level 99 mmol/L (98-107) Carbon Dioxide Level 29 mmol/L (21-32) Anion Gap 11 (6-14) Blood Urea Nitrogen 24 mg/dL (7-20) Creatinine 6.6 mg/dL (0.6-1.0) Estimated GFR (Cockcroft-Gault) 7.2 Glucose Level 115 mg/dL (70-99) Calcium Level 9.0 mg/dL (8.5-10.1) Phosphorus Level 4.6 mg/dL (2.6-4.7) Albumin 3.2 g/dL (3.4-5.0) Test 10/30/18 07:43 10/30/18 11:47 10/30/18 16:52 10/30/18 20:32 Glucose (Fingerstick) 105 mg/dL (70-99) 81 mg/dL (70-99) 91 mg/dL (70-99) 139 mg/dL (70-99) Test 10/31/18 08:33 Glucose (Fingerstick) 111 mg/dL (70-99) Laboratory Tests Test 10/30/18 11:47 10/30/18 16:52 10/30/18 20:32 10/31/18 08:33 Glucose (Fingerstick) 81 mg/dL (70-99) 91 mg/dL (70-99) 139 mg/dL (70-99) 111 mg/dL (70-99) Medications Current Medications Aspirin (Margie Aspirin) 325 mg 1X ONCE PO Last administered on 10/24/18 14:51 ; Start 10/24/18 at 14:45; Stop 10/24/18 at 14:46; Status DC Fentanyl Citrate (Fentanyl 2ml Vial) 50 mcg 1X ONCE IV Last administered on 10/24/18at 16:34; Start 10/24/18 at 15:00; Stop 10/24/18 at 15:01; Status DC Bumetanide (Bumex) 1 mg 1X ONCE IV Last administered on 10/24/18at 16:35; Start 10/24/18 at 16:19; Stop 10/24/18 at 16:20; Status DC Calcium Gluconate (Calcium Gluconate) 1,000 mg 1X ONCE IVP Last administered on 10/24/18at 16:34; Start 10/24/18 at 16:15; Stop 10/24/18 at 16:19; Status DC Insulin Human Regular (HumuLIN R VIAL) 10 unit 1X ONCE IV Last administered on 10/24/18 16:36; Start 10/24/18 at 16:15; Stop 10/24/18 at 16:19; Status DC Dextrose (Dextrose 50%-Water Syringe) 25 gm 1X ONCE IV Last administered on 16:35; Start 10/24/18 at 16:15; Stop 10/24/18 at 16:19; Status DC Nitroglycerin (Nitro-Bid Oint) 1 inch 1X ONCE TP Last administered on at 17:15; Start 10/24/18 at 17:15; Stop 10/24/18 at 17:16; Status DC Sodium Polystyrene Sulfonate (Kayexalate) 30 gm 1X ONCE PO Last administered on 10/24/18 17:16; Start 10/24/18 at 17:15; Stop 10/24/18 at 17:16; Status DC Ondansetron HCl (Zofran) 4 mg PRN Q8HRS PRN IV NAUSEA/VOMITING; Start 10/24/18 at 17:15; Stop 10/25/18 at 17:14; Status DC Fentanyl Citrate (Fentanyl 2ml Vial) 50 mcg Q2HR PRN IV PAIN Last administered on 10/25/18 10:47; Start 10/24/18 at 17:15; Stop 10/25/18 at 17:14; Status DC Insulin Human Lispro (HumaLOG) 0-5 UNITS TIDWMEALS SQ ; Start 10/25/18 at 08:00 Dextrose (Dextrose 50%-Water Syringe) 12.5 gm PRN Q15MIN PRN IV SEE COMMENTS; Start 10/24/18 at 17:30 Dextrose (Dextrose 50%-Water Syringe) 25 gm 1X ONCE IV Last administered on 18:02; Start 10/24/18 at 18:00; Stop 10/24/18 at 18:04; Status DC Hydralazine HCl (Apresoline Inj) 20 mg 1X ONCE IVP Last administered on 18:09; Start 10/24/18 at 18:15; Stop 10/24/18 at 18:16; Status DC Ceftriaxone Sodium (Rocephin) 1 gm 1X ONCE IVP Last administered on 2/3/19at 20:22; Start 10/24/18 at 19:30; Stop 10/24/18 at 19:31; Status DC Heparin Sodium (Porcine) (Heparin Sodium) 5,000 unit Q8HRS SQ Last administered on 10/25/18 05:46; Start 10/24/18 at 22:00; Stop 10/25/18 at 10:18; Status DC Albuterol Sulfate (Ventolin Neb Soln) 2.5 mg PRN Q6HRS PRN INH SHORTNESS OF BREATH; Start 10/24/18 at 19:45 Amlodipine Besylate (Norvasc) 10 mg PRN DAILY PRN PO HYPERTENSION, SEE COMMENTS ; Start 10/24/18 at 19:45 Aspirin (Ecotrin) 81 mg DAILY PO Last administered on 10/31/18 08:52; Start at 09:00 Cinacalcet (Sensipar) 30 mg DAILYWSUP PO Last administered on 10/30/18at 17:51; Start 10/25/18 at 17:00 Clonidine HCl (Catapres Tts-2) 1 patch WEEKLY TD Last administered on 09:00; Start 10/31/18 at 09:00 Clonidine HCl (Catapres) 0.2 mg BID PO ; Start 10/24/18 at 21:00; Stop 10/24/18 at 21:00; Status DC Doxycycline Hyclate (Vibra-Tab) 100 mg BID PO ; Start 10/24/18 at 21:00; Stop 10/24/18 at 21:00; Status DC Ferrous Sulfate (Feosol) 325 mg DAILY PO Last administered on 10/31/18 08:52; Start 10/25/18 at 09:00 Furosemide (Lasix) 40 mg DAILY PO Last administered on 10/26/18 14:35; Start at 09:00; Stop 10/27/18 at 13:56; Status DC Calcium Acetate (Phoslo) 1,334 mg TIDWMEALS PO Last administered on 10/31/18 08:52; Start 10/25/18 at 08:00 Aspirin (Ecotrin) 325 mg 1X ONCE PO Last administered on 10/25/18 10:35; Start 10/25/18 at 10:30; Stop 10/25/18 at 10:31; Status DC Heparin Sodium/ Dextrose 500 ml @ 0 mls/hr CONT PRN IV SEE I/O RECORD; Start at 10:15; Status UNV Heparin Sodium/ Dextrose 500 ml @ 0 mls/hr CONT PRN IV SEE I/O RECORD Last administered on 10/25/18at 10:41; Start 10/25/18 at 10:30; Stop 10/26/18 at 16:24; Status DC Heparin Sodium (Porcine) (Heparin Sodium) 2,300 unit PRN Q6HRS PRN IV FOR UFH LEVEL LESS THAN 0.2 Last administered on 10/25/18at 10:42; Start 10/25/18 at 10:30 ; Stop 10/27/18 at 10:32; Status DC Sodium Chloride 1,000 ml @ 1,000 mls/hr Q1H PRN IV hypotension; Start 10/25/18 at 10:19; Stop 10/25/18 at 16:18; Status DC Sodium Chloride 1,000 ml @ 400 mls/hr Q2H30M PRN IV PATENCY; Start 10/25/18 at 10:19; Stop 10/25/18 at 22:18; Status DC Info (PHARMACY MONITORING -- do not chart) 1 each PRN DAILY PRN MC SEE COMMENTS ; Start 10/25/18 at 10:30; Stop 10/27/18 at 08:18; Status DC Info (Anti-Coagulation Monitoring By Pharmacy) 1 each PRN DAILY PRN MC SEE COMMENTS Last administered on 10/26/18at 11:24; Start 10/25/18 at 10:30; Stop at 10:32; Status DC Atorvastatin Calcium (Lipitor) 10 mg QHS PO Last administered on 10/30/18at 21:38 ; Start 10/25/18 at 21:00 Fentanyl Citrate (Fentanyl 2ml Vial) 50 mcg PRN Q2HR PRN IV SEVERE PAIN Last administered on 10/31/18at 07:41; Start 10/26/18 at 08:30 Lidocaine HCl (Lidocaine 1% 20ml Vial) 20 ml STK-MED ONCE .ROUTE ; Start at 10:03; Stop 10/26/18 at 10:05; Status DC Heparin Sodium/ Sodium Chloride 500 ml @ As Directed STK-MED ONCE .ROUTE ; Start 10/26/18 at 10:03; Stop 10/26/18 at 10:05; Status DC Iodixanol (Visipaque 320) 100 ml STK-MED ONCE .ROUTE ; Start 10/26/18 at 10:52; Stop 10/26/18 at 10:54; Status DC Midazolam HCl (Versed) 2 mg STK-MED ONCE .ROUTE ; Start 10/26/18 at 11:18; Stop 10/26/18 at 11:20; Status DC Fentanyl Citrate (Fentanyl 2ml Vial) 100 mcg STK-MED ONCE .ROUTE ; Start at 11:18; Stop 10/26/18 at 11:20; Status DC Heparin Sodium/ Sodium Chloride (HEPARIN for ARTERIAL LINE FLUSH) 1,000 unit 1X ONCE IART Last administered on 10/26/18at 12:01; Start 10/26/18 at 12:00; Stop 10/26/18 at 12:01; Status DC Midazolam HCl (Versed) 1 mg 1X ONCE IV Last administered on 10/26/18at 12:01; Start 10/26/18 at 12:00; Stop 10/26/18 at 12:01; Status DC Fentanyl Citrate (Fentanyl 2ml Vial) 50 mcg 1X ONCE IV Last administered on 10/26/18at 12:02; Start 10/26/18 at 12:00; Stop 10/26/18 at 12:01; Status DC Iodixanol (Visipaque 320) 117 ml 1X ONCE IART Last administered on 10/26/18at 12 :01; Start 10/26/18 at 12:00; Stop 10/26/18 at 12:01; Status DC Lidocaine HCl 18 ml 1X ONCE IJ Last administered on 10/26/18at 11:22; Start 10/26 at 12:00; Stop 10/26/18 at 12:01; Status DC Sodium Chloride (Normal Saline Flush) 3 ml QSHIFT PRN IV AFTER MEDS AND BLOOD DRAWS; Start 10/26/18 at 12:15 Nitroglycerin (Nitrostat) 0.4 mg PRN Q5MIN PRN SL CHEST PAIN; Start 10/26/18 at 12:15 Sodium Chloride 1,000 ml @ 1,000 mls/hr Q1H PRN IV hypotension; Start 10/27/18 at 08:10; Stop 10/27/18 at 14:09; Status DC Sodium Chloride 1,000 ml @ 400 mls/hr Q2H30M PRN IV PATENCY; Start 10/27/18 at 08:10; Stop 10/27/18 at 20:09; Status DC Info (PHARMACY MONITORING -- do not chart) 1 each PRN DAILY PRN MC SEE COMMENTS ; Start 10/27/18 at 08:15; Status Cancel Hydromorphone HCl (Dilaudid) 0.5 mg PRN Q4HRS PRN IVP MODERATE PAIN Last administered on 10/29/18at 03:09; Start 10/27/18 at 14:45 Acetaminophen/ Hydrocodone Bitart (Lortab 5/325) 1 tab PRN Q6HRS PRN PO PAIN Last administered on 10/31/18at 06:09; Start 10/27/18 at 14:45 Naloxone HCl (Narcan) 0.4 mg PRN Q2MIN PRN IV SEE COMMENTS; Start 10/27/18 at 14 :45 Clopidogrel Bisulfate (Plavix) 75 mg DAILYWBKFT PO Last administered on at 08:52; Start 10/27/18 at 18:00 Iodixanol (Visipaque 320) 100 ml STK-MED ONCE .ROUTE ; Start 10/28/18 at 13:36; Stop 10/28/18 at 13:39; Status DC Lidocaine/Sodium Bicarbonate (Buffered Lidocaine 1%) 3 ml STK-MED ONCE .ROUTE ; Start 10/28/18 at 13:37; Stop 10/28/18 at 13:39; Status DC Heparin Sodium/ Sodium Chloride 1,000 ml @ As Directed STK-MED ONCE .ROUTE ; Start 10/28/18 at 13:37; Stop 10/28/18 at 13:39; Status DC Iodixanol (Visipaque 320) 50 ml STK-MED ONCE .ROUTE ; Start 10/28/18 at 13:38; Stop 10/28/18 at 13:39; Status DC Midazolam HCl (Versed) 2 mg STK-MED ONCE .ROUTE ; Start 10/28/18 at 14:22; Stop 10/28/18 at 14:25; Status DC Fentanyl Citrate (Fentanyl 2ml Vial) 100 mcg STK-MED ONCE .ROUTE ; Start at 14:23; Stop 10/28/18 at 14:25; Status DC Heparin Sodium (Porcine) (Heparin Sodium) 10,000 unit STK-MED ONCE .ROUTE ; Start 10/28/18 at 14:23; Stop 10/28/18 at 14:25; Status DC Heparin Sodium/ Sodium Chloride (HEPARIN for ARTERIAL LINE FLUSH) 1,000 unit 1X ONCE IART Last administered on 10/28/18at 15:15; Start 10/28/18 at 15:15; Stop 10/28/18 at 15:27; Status DC Lidocaine/Sodium Bicarbonate (Buffered Lidocaine 1%) 3 ml 1X ONCE IJ Last administered on 10/28/18 15:15; Start 10/28/18 at 15:15; Stop 10/28/18 at 15:27; Status DC Midazolam HCl (Versed) 2 mg 1X ONCE IV Last administered on 10/28/18 15:15; Start 10/28/18 at 15:15; Stop 10/28/18 at 15:27; Status DC Fentanyl Citrate (Fentanyl 2ml Vial) 100 mcg 1X ONCE IV Last administered on 15:15; Start 10/28/18 at 15:15; Stop 10/28/18 at 15:27; Status DC Heparin Sodium (Porcine) (Heparin Sodium) 5,000 unit 1X ONCE IV Last administered on 10/28/18 15:15; Start 10/28/18 at 15:15; Stop 10/28/18 at 15:27; Status DC Iodixanol (Visipaque 320) 50 ml 1X ONCE IART Last administered on 10/28/18 15: 15; Start 10/28/18 at 15:15; Stop 10/28/18 at 15:27; Status DC Iodixanol (Visipaque 320) 100 ml STK-MED ONCE .ROUTE ; Start 10/28/18 at 15:33; Stop 10/28/18 at 15:35; Status DC Iodixanol (Visipaque 320) 100 ml 1X ONCE IART Last administered on 10/28/18at 15 :45; Start 10/28/18 at 15:45; Stop 10/28/18 at 15:46; Status DC Info (CONTRAST GIVEN -- Rx MONITORING) 1 each PRN DAILY PRN MC SEE COMMENTS; Start 10/28/18 at 15:45; Stop 10/30/18 at 15:44; Status DC Heparin Sodium/ Sodium Chloride 500 ml @ As Directed STK-MED ONCE .ROUTE ; Start 10/28/18 at 15:38; Stop 10/28/18 at 15:40; Status DC Sodium Chloride 1,000 ml @ 1,000 mls/hr Q1H PRN IV hypotension; Start 10/29/18 at 09:18; Stop 10/29/18 at 15:17; Status DC Sodium Chloride 1,000 ml @ 400 mls/hr Q2H30M PRN IV PATENCY; Start 10/29/18 at 09:18; Stop 10/29/18 at 21:17; Status DC Info (PHARMACY MONITORING -- do not chart) 1 each PRN DAILY PRN MC SEE COMMENTS ; Start 10/29/18 at 09:30 Active Scripts Active Proair Hfa Inhaler (Albuterol Sulfate) 8.5 Gm Hfa.aer.ad 1 Puff INH PRN Q6HRS PRN 14 Days Doxycycline Hyclate 100 Mg Tablet 100 Mg PO BID 7 Days Reported Clopidogrel (Clopidogrel Bisulfate) 75 Mg Tablet 1 Tab PO DAILY Catapres-Tts 2 (Clonidine) 1 Each Patch.tdwk 1 Each TD WEEKLY Clonidine Hcl 0.2 Mg Tablet 0.2 Mg PO BID Dialyvite [place] D Tablet (Multivitamin, Min Cmb#25/Fa/D3) 1 Each Tablet 1 Each PO DAILY Renvela (Sevelamer Carbonate) 800 Mg Tablet 2 Tab PO TIDWMEALHC Sensipar (Cinacalcet Hcl) 30 Mg Tablet 1 Tab PO DAILYWSUP Calcium Acetate 667 Mg Tablet 1,334 Mg PO TIDWMEALS Lovastatin 10 Mg Tablet 10 Mg PO HS Losartan Potassium 100 Mg Tablet 100 Mg PO DAILY Amlodipine Besylate 10 Mg Tablet 10 Mg PO PRN DAILY PRN Ferrous Sulfate 325 Mg Tablet 1 Tab PO DAILY Lasix (Furosemide) 40 Mg Tablet 1 Tab PO DAILY Aspir 81 (Aspirin) 81 Mg Tablet. 1 Tab PO DAILY Vitals/I & O Vital Sign - Last 24 Hours 10/30/18 10/30/18 10/30/18 10/30/18 11:10 15:15 17:51 17:59 Temp 97.6 97.9 97.6 97.9 Pulse 83 87 Resp 20 16 B/P (MAP) 125/56 (79) 107/39 (61) Pulse Ox 97 96 O2 Delivery Room Air Room Air Room Air Room Air 10/30/18 10/30/18 10/30/18 10/31/18 19:21 20:00 23:59 03:59 Temp 98.2 97.0 97.8 98.2 97.0 97.8 Pulse 88 92 81 Resp 18 16 16 B/P (MAP) 108/47 (67) 110/35 (60) 115/47 (69) Pulse Ox 99 94 95 O2 Delivery Room Air Room Air Room Air Room Air 10/31/18 10/31/18 10/31/18 10/31/18 06:09 07:00 07:10 07:41 Temp 98.4 98.4 Pulse 83 Resp 20 16 B/P (MAP) 139/63 (88) Pulse Ox 94 O2 Delivery Room Air Room Air Room Air Room Air 10/31/18 10/31/18 08:12 08:15 O2 Delivery Room Air Room Air O2 Flow Rate 2.0 Intake and Output 10/30/18 10/30/18 10/31/18 15:01 23:01 07:01 Intake Total 540 ml 360 ml 150 ml Output Total 0 ml Balance 540 ml 360 ml 150 ml SHAVON ORTEGA MD Oct 31, 2018 10:33
[2018-10-31 11:00] VITALS: BP 124/59
[2018-10-31 15:00] VITALS: BP 148/67
[2018-10-31] MEDS: CINACALCET HCL 30 MG TABLET PO SCH (17:11)
[2018-10-31 19:30] VITALS: BP 126/62
[2018-10-31] MEDS: ATORVASTATIN CALCIUM 10 MG TABLET. PO SCH (20:54)
[2018-10-31 22:48] VITALS: BP 140/76
[2018-11-01 03:30] VITALS: BP 113/56
[2018-11-01 04:20] LABS: BASO % 1 % (0-3); EOS # 0.2 x10^3/uL (0.0-0.7); EOS % 4 % (0-3); HEMATOCRIT 30.5 % (36.0-47.0); HEMOGLOBIN 9.6 g/dL (12.0-15.5); LYMPH % 16 % (24-48); MEAN CORPUSCULAR HEMOGLOBIN 29 pg (25-35); MEAN CORPUSCULAR HGB CONC 32 g/dL (31-37); MEAN CORPUSCULAR VOLUME 92 fL (79-100); MONO # 0.8 x10^3/uL (0.0-1.1); MONO % 13 % (0-9); NEUT # 4.1 x10^3uL (1.8-7.7); NEUT % 66 % (31-73); PLATELET COUNT 315 x10^3/uL (140-400); RED CELL DISTRIBUTION WIDTH 16.7 % (11.5-14.5); WHITE BLOOD COUNT 6.3 x10^3/uL (4.0-11.0)
[2018-11-01 04:38] LABS: ALBUMIN 2.8 g/dL (3.4-5.0); ALBUMIN/GLOBULIN RATIO 0.7 (1.0-1.7); CREATININE 10.4 mg/dL (0.6-1.0); GFR 4.3; POTASSIUM 5.3 mmol/L (3.5-5.1); TOTAL BILIRUBIN 0.3 mg/dL (0.2-1.0); TOTAL PROTEIN 7.1 g/dL (6.4-8.2)
[2018-11-01 07:35] VITALS: BP 139/45
[2018-11-01] MEDS: CLOPIDOGREL BISULFATE 75 MG TABLET PO SCH (08:00)
[2018-11-01] MEDS: INSULIN LISPRO 300 UNITS/3 ML INSULN.PEN. SQ SCH ×3 (08:00→17:00)
[2018-11-01] MEDS: HYDROcodone/APAP 5/325MG 1 TAB TABLET PO PRN (08:56)
[2018-11-01] MEDS: CALCIUM ACETATE 667 MG CAPSULE PO SCH ×3 (08:56→17:00)
[2018-11-01] MEDS: ASPIRIN ENTERIC COATED 81 MG TABLET.DR. PO SCH (09:00)
[2018-11-01] MEDS: FERROUS SULFATE 325 MG TABLET. PO SCH (09:00)
[2018-11-01 11:00] VITALS: BP 134/61
--- NOTE | 2018-11-01 12:04 | PDOC2 ---
PALLIATIVE CARE Palliative Care Note Palliative Care Family scheduled for 1030. No family at bedside. Met with patient. Alert and oriented x3. Is able to accurately provide information about her medical condition. Understands her heart and kidneys are "bad" Because of her bad heart it would be "very risky" to try to clean out the vessels in my legs. Reviewed current medical condition; NSTEMI - with elevation in Trop 1.1, ST depressions, s/p LHC. continue plavix and ASA. off heparin drip. Pt has 3 vessel coronary disease turned down for revascularization, medical management Hyperkalemia - HD today Hyperphosphatemia - diet was liberalized to her home diet. Will cont her phoslo Right leg pain secondary to PVD in left leg. 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 vasc consulted. Patient has severe bilateral lower extremity PAD as noted on aortogram. Attempts at USABILITY ARCHITECT to right external iliac artery by vascular surgery unsuccessful yesterday. Poor overall prognosis. consulted palliative care ESRD - HD per nephro Acute on chronic diastolic CHF - UF per nephrology at dialysis DM2: stable Anemia - of chronic renal disease. monitor Patient had 4 children. 3 . Jono her daughter that was here this morning could not attend. Patient lives with her granddaughter, and 3 children. She would eventually like to get her own place to live. Does not want to be a burden on her family and friends Cathryn: very important to patient. not able to attend her gnosticism. 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 Enjoyed gardening and cooking. when children were young. Discussed options for care: Full aggressive care with options provided to address PVD . vs comfort care (hospice) vs medical management of her disease understanding there is no "cure" She would like to continue dialysis for now. She does not want any vascular procedures because of the risk of her heart condition. Discussed Code Status; Patient requests DNR/DNI. Discussed risks and benefits. She read the Outside the Hospital DNR/DNI form and was able to verbalize that without the attempt at resuscitation she likely would . Patient signed her own DNR/DNI form. Discussed who she would want to make decisions if she were unable to make those decisions. She will need to talk to family about this before making any decisions. Stressful family dynamics. Discussed pain management. Oral medication (hydrocodone) not adequate for pain relief. Patient does get good relief with Fentanyl. With continuous pain, patient may benefit from low dose Fentanyl patch and appropriate breakthrough pain medication. Plan: DNR/DNI per patient request. Continue dialysis,. Medical management of vascular disease. Not ready for hospice. Discussed support that is provided by Hospice. Would benefit from Palliative Home Health support at home. SHEILA CALDERON Nov 01, 2018 12:04
[2018-11-01] MEDS: HYDROmorphone 2 MG/ML VIAL IVP PRN (12:05)
--- NOTE | 2018-11-01 12:27 | NUR ---
SS following up with discharge planning. Palliative Care meeting conducted with pt and family. Notes indicate that pt is not ready for hospice at this time. Home Healthcare recommended. SS will continue to follow for discharge planning. Pt currently declining therapy.
[2018-11-01] MEDS ORDERED: HYDROcodone/APAP 5/325MG 1 TAB TABLET PO PRN (12:30)
[2018-11-01] MEDS ORDERED: fentaNYL 50MCG/HR PATCH 1 PATCH PATCH.TD72 TD SCH (13:00)
--- NOTE | 2018-11-01 13:26 | NUR ---
SS following up with discharge planning. SS received phone contact from Kyra GUIDO, at [facility], ; fax [phone]. Kyra reported that pt was on dialysis at there facility [facility] at 0615. She reported that pt will need home healthcare when returning home if not agreeable to hospice.
[2018-11-01] MEDS ORDERED: IV NORMAL SALINE 1000ML BAG 1,000 ML IV PRN ×2 (13:38)
[2018-11-01] MEDS ORDERED: DIALYSIS PATIENT. MC PRN ×2 (13:45)
[2018-11-01] MEDS ORDERED: LIDOCAINE 1% PF 2 ML VIAL. ID ONE (13:45)
--- NOTE | 2018-11-01 14:25 | PDOC ---
PROGRESS NOTES Chief Complaint Chief Complaint .CHF Mild pulmonary vascular congestion Elevated troponin PVD Superficial cellulitis both lower legs ESRD on dialysis Hyperkalemia Secondary pulmonary hypertension Anemia Morbid obesity COPD Diabetes Bilateral LE edema History of Present Illness History of Present Illness Pt is an 88 y/o AA female who was admitted with CHF, elevated troponin and ESRD on dialysis. Today she is alert, awake in her bed. She complains of toe pain in the right LE. She wants pain medications. care home goals of care are in progress. Will await family meeting with palliative care. I discussed the pt with her RN. Will give medications for her pain. She is not a surgical candidate. Vitals Vitals Vital Signs Date Time Temp Pulse Resp B/P (MAP) Pulse Ox O2 Delivery O2 Flow Rate FiO2 11/01/18 12:25 18 99 Room Air 11/01/18 11:00 97.8 78 134/61 (85) 97.8 11/01/18 08:56 2.0 Physical Exam General: Alert, Oriented X3, Cooperative, No acute distress, mild distress Heart: Regular rate, Normal S1, Normal S2 Lungs: Crackles Abdomen: Soft, No tenderness Extremities: No clubbing, No cyanosis, Other (diminished pedal pulses, leg edema 2+ bilateral LE with tenderness, scabbed over wounds to RLE no oozing) Skin: Other (Wounds on right LE) Labs LABS Laboratory Tests Test 10/31/18 16:56 11/01/18 03:05 11/01/18 07:40 11/01/18 12:23 Glucose (Fingerstick) 95 mg/dL (70-99) 105 mg/dL (70-99) 88 mg/dL (70-99) White Blood Count 6.3 x10^3/uL (4.0-11.0) Red Blood Count 3.30 x10^6/uL (3.50-5.40) Hemoglobin 9.6 g/dL (12.0-15.5) Hematocrit 30.5 % (36.0-47.0) Mean Corpuscular Volume 92 fL (79-100) Mean Corpuscular Hemoglobin 29 pg (25-35) Mean Corpuscular Hemoglobin Concent 32 g/dL (31-37) Red Cell Distribution Width 16.7 % (11.5-14.5) Platelet Count 315 x10^3/uL (140-400) Neutrophils (%) (Auto) 66 % (31-73) Lymphocytes (%) (Auto) 16 % (24-48) Monocytes (%) (Auto) 13 % (0-9) Eosinophils (%) (Auto) 4 % (0-3) Basophils (%) (Auto) 1 % (0-3) Neutrophils # (Auto) 4.1 x10^3uL (1.8-7.7) Lymphocytes # (Auto) 1.0 x10^3/uL (1.0-4.8) Monocytes # (Auto) 0.8 x10^3/uL (0.0-1.1) Eosinophils # (Auto) 0.2 x10^3/uL (0.0-0.7) Basophils # (Auto) 0.0 x10^3/uL (0.0-0.2) Sodium Level 138 mmol/L (136-145) Potassium Level 5.3 mmol/L (3.5-5.1) Chloride Level 100 mmol/L (98-107) Carbon Dioxide Level 28 mmol/L (21-32) Anion Gap 10 (6-14) Blood Urea Nitrogen 44 mg/dL (7-20) Creatinine 10.4 mg/dL (0.6-1.0) Estimated GFR (Cockcroft-Gault) 4.3 BUN/Creatinine Ratio 4 (6-20) Glucose Level 100 mg/dL (70-99) Calcium Level 9.0 mg/dL (8.5-10.1) Total Bilirubin 0.3 mg/dL (0.2-1.0) Aspartate Amino Transf (AST/SGOT) 17 U/L (15-37) Alanine Aminotransferase (ALT/SGPT) 15 U/L (14-59) Alkaline Phosphatase 111 U/L (46-116) Total Protein 7.1 g/dL (6.4-8.2) Albumin 2.8 g/dL (3.4-5.0) Albumin/Globulin Ratio 0.7 (1.0-1.7) Review of Systems Review of Systems Gen: denies fever or chills HEENT: denies sore throat, SANCHEZ Heart: denies CP, palp Lung: mild SOA, denies cough Ext: LE edema, superficial wounds. Assessment and Plan Assessmemt and Plan Assessment: CHF Mild pulmonary vascular congestion Elevated troponin Superficial cellulitis both lower legs ESRD on dialysis Hyperkalemia Secondary pulmonary hypertension Anemia PVD Morbid obesity COPD Diabetes Edema Plan: IV Lasix Cardiac monitoring Dialysis M/W/F Not an open surgical candidate Awaiting palliative care decisions Lab PT/OT Home meds Appreciate subspecialist input Comment Review of Relevant I have reviewed the following items vicente (where applicable) has been applied. Labs Laboratory Tests Test 10/30/18 16:52 10/30/18 20:32 10/31/18 08:33 10/31/18 11:28 Glucose (Fingerstick) 91 mg/dL (70-99) 139 mg/dL (70-99) 111 mg/dL (70-99) 134 mg/dL (70-99) Test 10/31/18 16:56 11/01/18 03:05 11/01/18 07:40 11/01/18 12:23 Glucose (Fingerstick) 95 mg/dL (70-99) 105 mg/dL (70-99) 88 mg/dL (70-99) White Blood Count 6.3 x10^3/uL (4.0-11.0) Red Blood Count 3.30 x10^6/uL (3.50-5.40) Hemoglobin 9.6 g/dL (12.0-15.5) Hematocrit 30.5 % (36.0-47.0) Mean Corpuscular Volume 92 fL (79-100) Mean Corpuscular Hemoglobin 29 pg (25-35) Mean Corpuscular Hemoglobin Concent 32 g/dL (31-37) Red Cell Distribution Width 16.7 % (11.5-14.5) Platelet Count 315 x10^3/uL (140-400) Neutrophils (%) (Auto) 66 % (31-73) Lymphocytes (%) (Auto) 16 % (24-48) Monocytes (%) (Auto) 13 % (0-9) Eosinophils (%) (Auto) 4 % (0-3) Basophils (%) (Auto) 1 % (0-3) Neutrophils # (Auto) 4.1 x10^3uL (1.8-7.7) Lymphocytes # (Auto) 1.0 x10^3/uL (1.0-4.8) Monocytes # (Auto) 0.8 x10^3/uL (0.0-1.1) Eosinophils # (Auto) 0.2 x10^3/uL (0.0-0.7) Basophils # (Auto) 0.0 x10^3/uL (0.0-0.2) Sodium Level 138 mmol/L (136-145) Potassium Level 5.3 mmol/L (3.5-5.1) Chloride Level 100 mmol/L (98-107) Carbon Dioxide Level 28 mmol/L (21-32) Anion Gap 10 (6-14) Blood Urea Nitrogen 44 mg/dL (7-20) Creatinine 10.4 mg/dL (0.6-1.0) Estimated GFR (Cockcroft-Gault) 4.3 BUN/Creatinine Ratio 4 (6-20) Glucose Level 100 mg/dL (70-99) Calcium Level 9.0 mg/dL (8.5-10.1) Total Bilirubin 0.3 mg/dL (0.2-1.0) Aspartate Amino Transf (AST/SGOT) 17 U/L (15-37) Alanine Aminotransferase (ALT/SGPT) 15 U/L (14-59) Alkaline Phosphatase 111 U/L (46-116) Total Protein 7.1 g/dL (6.4-8.2) Albumin 2.8 g/dL (3.4-5.0) Albumin/Globulin Ratio 0.7 (1.0-1.7) Laboratory Tests Test 10/31/18 16:56 11/01/18 03:05 11/01/18 07:40 11/01/18 12:23 Glucose (Fingerstick) 95 mg/dL (70-99) 105 mg/dL (70-99) 88 mg/dL (70-99) White Blood Count 6.3 x10^3/uL (4.0-11.0) Red Blood Count 3.30 x10^6/uL (3.50-5.40) Hemoglobin 9.6 g/dL (12.0-15.5) Hematocrit 30.5 % (36.0-47.0) Mean Corpuscular Volume 92 fL (79-100) Mean Corpuscular Hemoglobin 29 pg (25-35) Mean Corpuscular Hemoglobin Concent 32 g/dL (31-37) Red Cell Distribution Width 16.7 % (11.5-14.5) Platelet Count 315 x10^3/uL (140-400) Neutrophils (%) (Auto) 66 % (31-73) Lymphocytes (%) (Auto) 16 % (24-48) Monocytes (%) (Auto) 13 % (0-9) Eosinophils (%) (Auto) 4 % (0-3) Basophils (%) (Auto) 1 % (0-3) Neutrophils # (Auto) 4.1 x10^3uL (1.8-7.7) Lymphocytes # (Auto) 1.0 x10^3/uL (1.0-4.8) Monocytes # (Auto) 0.8 x10^3/uL (0.0-1.1) Eosinophils # (Auto) 0.2 x10^3/uL (0.0-0.7) Basophils # (Auto) 0.0 x10^3/uL (0.0-0.2) Sodium Level 138 mmol/L (136-145) Potassium Level 5.3 mmol/L (3.5-5.1) Chloride Level 100 mmol/L (98-107) Carbon Dioxide Level 28 mmol/L (21-32) Anion Gap 10 (6-14) Blood Urea Nitrogen 44 mg/dL (7-20) Creatinine 10.4 mg/dL (0.6-1.0) Estimated GFR (Cockcroft-Gault) 4.3 BUN/Creatinine Ratio 4 (6-20) Glucose Level 100 mg/dL (70-99) Calcium Level 9.0 mg/dL (8.5-10.1) Total Bilirubin 0.3 mg/dL (0.2-1.0) Aspartate Amino Transf (AST/SGOT) 17 U/L (15-37) Alanine Aminotransferase (ALT/SGPT) 15 U/L (14-59) Alkaline Phosphatase 111 U/L (46-116) Total Protein 7.1 g/dL (6.4-8.2) Albumin 2.8 g/dL (3.4-5.0) Albumin/Globulin Ratio 0.7 (1.0-1.7) Medications Current Medications Aspirin (Margie Aspirin) 325 mg 1X ONCE PO Last administered on 10/24/18at 14:51 ; Start 10/24/18 at 14:45; Stop 10/24/18 at 14:46; Status DC Fentanyl Citrate (Fentanyl 2ml Vial) 50 mcg 1X ONCE IV Last administered on 16:34; Start 10/24/18 at 15:00; Stop 10/24/18 at 15:01; Status DC Bumetanide (Bumex) 1 mg 1X ONCE IV Last administered on 10/24/18 16:35; Start 10/24/18 at 16:19; Stop 10/24/18 at 16:20; Status DC Calcium Gluconate (Calcium Gluconate) 1,000 mg 1X ONCE IVP Last administered on 10/24/18 16:34; Start 10/24/18 at 16:15; Stop 10/24/18 at 16:19; Status DC Insulin Human Regular (HumuLIN R VIAL) 10 unit 1X ONCE IV Last administered on 10/24/18 16:36; Start 10/24/18 at 16:15; Stop 10/24/18 at 16:19; Status DC Dextrose (Dextrose 50%-Water Syringe) 25 gm 1X ONCE IV Last administered on 16:35; Start 10/24/18 at 16:15; Stop 10/24/18 at 16:19; Status DC Nitroglycerin (Nitro-Bid Oint) 1 inch 1X ONCE TP Last administered on 17:15; Start 10/24/18 at 17:15; Stop 10/24/18 at 17:16; Status DC Sodium Polystyrene Sulfonate (Kayexalate) 30 gm 1X ONCE PO Last administered on 10/24/18 17:16; Start 10/24/18 at 17:15; Stop 10/24/18 at 17:16; Status DC Ondansetron HCl (Zofran) 4 mg PRN Q8HRS PRN IV NAUSEA/VOMITING; Start 10/24/18 at 17:15; Stop 10/25/18 at 17:14; Status DC Fentanyl Citrate (Fentanyl 2ml Vial) 50 mcg Q2HR PRN IV PAIN Last administered on 10/25/18at 10:47; Start 10/24/18 at 17:15; Stop 10/25/18 at 17:14; Status DC Insulin Human Lispro (HumaLOG) 0-5 UNITS TIDWMEALS SQ ; Start 10/25/18 at 08:00 Dextrose (Dextrose 50%-Water Syringe) 12.5 gm PRN Q15MIN PRN IV SEE COMMENTS; Start 10/24/18 at 17:30 Dextrose (Dextrose 50%-Water Syringe) 25 gm 1X ONCE IV Last administered on 10/24/18at 18:02; Start 10/24/18 at 18:00; Stop 10/24/18 at 18:04; Status DC Hydralazine HCl (Apresoline Inj) 20 mg 1X ONCE IVP Last administered on at 18:09; Start 10/24/18 at 18:15; Stop 10/24/18 at 18:16; Status DC Ceftriaxone Sodium (Rocephin) 1 gm 1X ONCE IVP Last administered on 10/24/18at 20:22; Start 10/24/18 at 19:30; Stop 10/24/18 at 19:31; Status DC Heparin Sodium (Porcine) (Heparin Sodium) 5,000 unit Q8HRS SQ Last administered on 10/25/18at 05:46; Start 10/24/18 at 22:00; Stop 10/25/18 at 10:18; Status DC Albuterol Sulfate (Ventolin Neb Soln) 2.5 mg PRN Q6HRS PRN INH SHORTNESS OF BREATH; Start 10/24/18 at 19:45 Amlodipine Besylate (Norvasc) 10 mg PRN DAILY PRN PO HYPERTENSION, SEE COMMENTS ; Start 10/24/18 at 19:45 Aspirin (Ecotrin) 81 mg DAILY PO Last administered on 10/31/18at 08:52; Start at 09:00 Cinacalcet (Sensipar) 30 mg DAILYWSUP PO Last administered on 10/31/18at 17:11; Start 10/25/18 at 17:00 Clonidine HCl (Catapres Tts-2) 1 patch WEEKLY TD Last administered on at 09:00; Start 10/31/18 at 09:00 Clonidine HCl (Catapres) 0.2 mg BID PO ; Start 10/24/18 at 21:00; Stop 10/24/18 at 21:00; Status DC Doxycycline Hyclate (Vibra-Tab) 100 mg BID PO ; Start 10/24/18 at 21:00; Stop 10/24/18 at 21:00; Status DC Ferrous Sulfate (Feosol) 325 mg DAILY PO Last administered on 10/31/18 08:52; Start 10/25/18 at 09:00 Furosemide (Lasix) 40 mg DAILY PO Last administered on 10/26/18 14:35; Start at 09:00; Stop 10/27/18 at 13:56; Status DC Calcium Acetate (Phoslo) 1,334 mg TIDWMEALS PO Last administered on 11/01/18at 08:56; Start 10/25/18 at 08:00 Aspirin (Ecotrin) 325 mg 1X ONCE PO Last administered on 10/25/18 10:35; Start 10/25/18 at 10:30; Stop 10/25/18 at 10:31; Status DC Heparin Sodium/ Dextrose 500 ml @ 0 mls/hr CONT PRN IV SEE I/O RECORD; Start at 10:15; Status UNV Heparin Sodium/ Dextrose 500 ml @ 0 mls/hr CONT PRN IV SEE I/O RECORD Last administered on 10/25/18at 10:41; Start 10/25/18 at 10:30; Stop 10/26/18 at 16:24; Status DC Heparin Sodium (Porcine) (Heparin Sodium) 2,300 unit PRN Q6HRS PRN IV FOR UFH LEVEL LESS THAN 0.2 Last administered on 10/25/18at 10:42; Start 10/25/18 at 10:30 ; Stop 10/27/18 at 10:32; Status DC Sodium Chloride 1,000 ml @ 1,000 mls/hr Q1H PRN IV hypotension; Start 10/25/18 at 10:19; Stop 10/25/18 at 16:18; Status DC Sodium Chloride 1,000 ml @ 400 mls/hr Q2H30M PRN IV PATENCY; Start 10/25/18 at 10:19; Stop 10/25/18 at 22:18; Status DC Info (PHARMACY MONITORING -- do not chart) 1 each PRN DAILY PRN MC SEE COMMENTS ; Start 10/25/18 at 10:30; Stop 10/27/18 at 08:18; Status DC Info (Anti-Coagulation Monitoring By Pharmacy) 1 each PRN DAILY PRN MC SEE COMMENTS Last administered on 10/26/18at 11:24; Start 10/25/18 at 10:30; Stop at 10:32; Status DC Atorvastatin Calcium (Lipitor) 10 mg QHS PO Last administered on 10/31/18at 20: 54; Start 10/25/18 at 21:00 Fentanyl Citrate (Fentanyl 2ml Vial) 50 mcg PRN Q2HR PRN IV SEVERE PAIN Last administered on 10/31/18at 17:11; Start 10/26/18 at 08:30; Stop 11/01/18 at 12:19 ; Status DC Lidocaine HCl (Lidocaine 1% 20ml Vial) 20 ml STK-MED ONCE .ROUTE ; Start at 10:03; Stop 10/26/18 at 10:05; Status DC Heparin Sodium/ Sodium Chloride 500 ml @ As Directed STK-MED ONCE .ROUTE ; Start 10/26/18 at 10:03; Stop 10/26/18 at 10:05; Status DC Iodixanol (Visipaque 320) 100 ml STK-MED ONCE .ROUTE ; Start 10/26/18 at 10:52; Stop 10/26/18 at 10:54; Status DC Midazolam HCl (Versed) 2 mg STK-MED ONCE .ROUTE ; Start 10/26/18 at 11:18; Stop 10/26/18 at 11:20; Status DC Fentanyl Citrate (Fentanyl 2ml Vial) 100 mcg STK-MED ONCE .ROUTE ; Start at 11:18; Stop 10/26/18 at 11:20; Status DC Heparin Sodium/ Sodium Chloride (HEPARIN for ARTERIAL LINE FLUSH) 1,000 unit 1X ONCE IART Last administered on 10/26/18at 12:01; Start 10/26/18 at 12:00; Stop 10/26/18 at 12:01; Status DC Midazolam HCl (Versed) 1 mg 1X ONCE IV Last administered on 10/26/18at 12:01; Start 10/26/18 at 12:00; Stop 10/26/18 at 12:01; Status DC Fentanyl Citrate (Fentanyl 2ml Vial) 50 mcg 1X ONCE IV Last administered on 10/26/18at 12:02; Start 10/26/18 at 12:00; Stop 10/26/18 at 12:01; Status DC Iodixanol (Visipaque 320) 117 ml 1X ONCE IART Last administered on 10/26/18at 12 :01; Start 10/26/18 at 12:00; Stop 10/26/18 at 12:01; Status DC Lidocaine HCl 18 ml 1X ONCE IJ Last administered on 10/26/18at 11:22; Start 10/26 at 12:00; Stop 10/26/18 at 12:01; Status DC Sodium Chloride (Normal Saline Flush) 3 ml QSHIFT PRN IV AFTER MEDS AND BLOOD DRAWS; Start 10/26/18 at 12:15 Nitroglycerin (Nitrostat) 0.4 mg PRN Q5MIN PRN SL CHEST PAIN; Start 10/26/18 at 12:15 Sodium Chloride 1,000 ml @ 1,000 mls/hr Q1H PRN IV hypotension; Start 10/27/18 at 08:10; Stop 10/27/18 at 14:09; Status DC Sodium Chloride 1,000 ml @ 400 mls/hr Q2H30M PRN IV PATENCY; Start 10/27/18 at 08:10; Stop 10/27/18 at 20:09; Status DC Info (PHARMACY MONITORING -- do not chart) 1 each PRN DAILY PRN MC SEE COMMENTS ; Start 10/27/18 at 08:15; Status Cancel Hydromorphone HCl (Dilaudid) 0.5 mg PRN Q4HRS PRN IVP MODERATE PAIN Last administered on 11/01/18at 12:05; Start 10/27/18 at 14:45; Stop 11/01/18 at 12:19 ; Status DC Acetaminophen/ Hydrocodone Bitart (Lortab 5/325) 1 tab PRN Q6HRS PRN PO PAIN Last administered on 11/01/18at 08:56; Start 10/27/18 at 14:45; Stop 11/01/18 at 12:19; Status DC Naloxone HCl (Narcan) 0.4 mg PRN Q2MIN PRN IV SEE COMMENTS; Start 10/27/18 at 14 :45 Clopidogrel Bisulfate (Plavix) 75 mg DAILYWBKFT PO Last administered on at 08:52; Start 10/27/18 at 18:00 Iodixanol (Visipaque 320) 100 ml STK-MED ONCE .ROUTE ; Start 10/28/18 at 13:36; Stop 10/28/18 at 13:39; Status DC Lidocaine/Sodium Bicarbonate (Buffered Lidocaine 1%) 3 ml STK-MED ONCE .ROUTE ; Start 10/28/18 at 13:37; Stop 10/28/18 at 13:39; Status DC Heparin Sodium/ Sodium Chloride 1,000 ml @ As Directed STK-MED ONCE .ROUTE ; Start 10/28/18 at 13:37; Stop 10/28/18 at 13:39; Status DC Iodixanol (Visipaque 320) 50 ml STK-MED ONCE .ROUTE ; Start 10/28/18 at 13:38; Stop 10/28/18 at 13:39; Status DC Midazolam HCl (Versed) 2 mg STK-MED ONCE .ROUTE ; Start 10/28/18 at 14:22; Stop 10/28/18 at 14:25; Status DC Fentanyl Citrate (Fentanyl 2ml Vial) 100 mcg STK-MED ONCE .ROUTE ; Start at 14:23; Stop 10/28/18 at 14:25; Status DC Heparin Sodium (Porcine) (Heparin Sodium) 10,000 unit STK-MED ONCE .ROUTE ; Start 10/28/18 at 14:23; Stop 10/28/18 at 14:25; Status DC Heparin Sodium/ Sodium Chloride (HEPARIN for ARTERIAL LINE FLUSH) 1,000 unit 1X ONCE IART Last administered on 10/28/18at 15:15; Start 10/28/18 at 15:15; Stop 10/28/18 at 15:27; Status DC Lidocaine/Sodium Bicarbonate (Buffered Lidocaine 1%) 3 ml 1X ONCE IJ Last administered on 10/28/18at 15:15; Start 10/28/18 at 15:15; Stop 10/28/18 at 15:27; Status DC Midazolam HCl (Versed) 2 mg 1X ONCE IV Last administered on 10/28/18at 15:15; Start 10/28/18 at 15:15; Stop 10/28/18 at 15:27; Status DC Fentanyl Citrate (Fentanyl 2ml Vial) 100 mcg 1X ONCE IV Last administered on at 15:15; Start 10/28/18 at 15:15; Stop 10/28/18 at 15:27; Status DC Heparin Sodium (Porcine) (Heparin Sodium) 5,000 unit 1X ONCE IV Last administered on 10/28/18at 15:15; Start 10/28/18 at 15:15; Stop 10/28/18 at 15:27; Status DC Iodixanol (Visipaque 320) 50 ml 1X ONCE IART Last administered on 10/28/18at 15: 15; Start 10/28/18 at 15:15; Stop 10/28/18 at 15:27; Status DC Iodixanol (Visipaque 320) 100 ml STK-MED ONCE .ROUTE ; Start 10/28/18 at 15:33; Stop 10/28/18 at 15:35; Status DC Iodixanol (Visipaque 320) 100 ml 1X ONCE IART Last administered on 10/28/18at 15 :45; Start 10/28/18 at 15:45; Stop 10/28/18 at 15:46; Status DC Info (CONTRAST GIVEN -- Rx MONITORING) 1 each PRN DAILY PRN MC SEE COMMENTS; Start 10/28/18 at 15:45; Stop 10/30/18 at 15:44; Status DC Heparin Sodium/ Sodium Chloride 500 ml @ As Directed STK-MED ONCE .ROUTE ; Start 10/28/18 at 15:38; Stop 10/28/18 at 15:40; Status DC Sodium Chloride 1,000 ml @ 1,000 mls/hr Q1H PRN IV hypotension; Start 10/29/18 at 09:18; Stop 10/29/18 at 15:17; Status DC Sodium Chloride 1,000 ml @ 400 mls/hr Q2H30M PRN IV PATENCY; Start 10/29/18 at 09:18; Stop 10/29/18 at 21:17; Status DC Info (PHARMACY MONITORING -- do not chart) 1 each PRN DAILY PRN MC SEE COMMENTS ; Start 10/29/18 at 09:30 Acetaminophen/ Hydrocodone Bitart (Lortab 5/325) 2 tab PRN Q4HRS PRN PO MODERATE TO SEVERE PAIN; Start 11/01/18 at 12:30 Fentanyl (Duragesic 50mcg/ Hr Patch) 1 patch Q3DAYS TD ; Start 11/01/18 at 13:00 Sodium Chloride 1,000 ml @ 1,000 mls/hr Q1H PRN IV hypotension; Start 11/01/18 at 13:38; Stop 11/01/18 at 19:37 Sodium Chloride 1,000 ml @ 400 mls/hr Q2H30M PRN IV PATENCY; Start 11/01/18 at 13:38; Stop 11/02/18 at 01:37 Info (PHARMACY MONITORING -- do not chart) 1 each PRN DAILY PRN MC SEE COMMENTS ; Start 11/01/18 at 13:45; Status UNV Info (PHARMACY MONITORING -- do not chart) 1 each PRN DAILY PRN MC SEE COMMENTS ; Start 11/01/18 at 13:45 Lidocaine HCl (Xylocaine-Mpf 1% 2ml Vial) 2 ml 1X ONCE ID ; Start 11/01/18 at 13:45; Stop 11/01/18 at 13:51; Status DC Active Scripts Active Proair Hfa Inhaler (Albuterol Sulfate) 8.5 Gm Hfa.aer.ad 1 Puff INH PRN Q6HRS PRN 14 Days Doxycycline Hyclate 100 Mg Tablet 100 Mg PO BID 7 Days Reported Clopidogrel (Clopidogrel Bisulfate) 75 Mg Tablet 1 Tab PO DAILY Catapres-Tts 2 (Clonidine) 1 Each Patch.tdwk 1 Each TD WEEKLY Clonidine Hcl 0.2 Mg Tablet 0.2 Mg PO BID Dialyvite [place] D Tablet (Multivitamin, Min Cmb#25/Fa/D3) 1 Each Tablet 1 Each PO DAILY Renvela (Sevelamer Carbonate) 800 Mg Tablet 2 Tab PO TIDWMEALHC Sensipar (Cinacalcet Hcl) 30 Mg Tablet 1 Tab PO DAILYWSUP Calcium Acetate 667 Mg Tablet 1,334 Mg PO TIDWMEALS Lovastatin 10 Mg Tablet 10 Mg PO HS Losartan Potassium 100 Mg Tablet 100 Mg PO DAILY Amlodipine Besylate 10 Mg Tablet 10 Mg PO PRN DAILY PRN Ferrous Sulfate 325 Mg Tablet 1 Tab PO DAILY Lasix (Furosemide) 40 Mg Tablet 1 Tab PO DAILY Aspir 81 (Aspirin) 81 Mg Tablet. 1 Tab PO DAILY Vitals/I & O Vital Sign - Last 24 Hours 10/31/18 10/31/18 10/31/18 10/31/18 15:00 17:11 17:47 19:30 Temp 98.5 97.9 98.5 97.9 Pulse 83 87 Resp 16 20 B/P (MAP) 148/67 (94) 126/62 (83) Pulse Ox 98 98 98 94 O2 Delivery Room Air Room Air Room Air Room Air O2 Flow Rate 2.0 2.0 210/31/18 11/01/18 11/01/18 20:22 22:48 03:30 07:35 Temp 98.1 98.2 97.6 98.1 98.2 97.6 Pulse 76 86 83 Resp 18 18 16 B/P (MAP) 140/76 (97) 113/56 (75) 139/45 (76) Pulse Ox 94 99 99 O2 Delivery Room Air Room Air Room Air Room Air 11/01/18 11/01/18 11/01/18 11/01/18 08:00 08:56 09:55 11:00 Temp 97.8 97.8 Pulse 78 Resp 18 20 10 B/P (MAP) 134/61 (85) Pulse Ox 99 99 90 O2 Delivery Room Air Room Air Room Air Room Air O2 Flow Rate 2.0 2.0 11/01/18 11/01/18 12:05 12:25 Resp 18 18 Pulse Ox 99 99 O2 Delivery Room Air Room Air Intake and Output 10/31/18 10/31/18 11/01/18 15:01 23:01 07:01 Intake Total 150 ml 0 ml 200 ml Balance 150 ml 0 ml 200 ml JASMIN BARCENAS III DO Nov 01, 2018 14:25
--- NOTE | 2018-11-01 15:23 | PDOC ---
Renal-Progress Notes Subjective Notes Notes NONE History of Present Illness Hx of present illness STABLE Vitals Vitals Vital Signs Date Time Temp Pulse Resp B/P (MAP) Pulse Ox O2 Delivery O2 Flow Rate FiO2 11/01/18 12:25 18 99 Room Air 11/01/18 11:00 97.8 78 134/61 (85) 97.8 11/01/18 08:56 2.0 Weight Weight [ ] I.O. Intake and Output Intake and Output 11/01/18 07:01 Intake Total 350 ml Balance 350 ml Intake Oral 350 ml # Bowel Movements 1 Labs Labs Laboratory Tests Test 10/31/18 16:56 11/01/18 03:05 11/01/18 07:40 11/01/18 12:23 Glucose (Fingerstick) 95 mg/dL (70-99) 105 mg/dL (70-99) 88 mg/dL (70-99) White Blood Count 6.3 x10^3/uL (4.0-11.0) Red Blood Count 3.30 x10^6/uL (3.50-5.40) Hemoglobin 9.6 g/dL (12.0-15.5) Hematocrit 30.5 % (36.0-47.0) Mean Corpuscular Volume 92 fL (79-100) Mean Corpuscular Hemoglobin 29 pg (25-35) Mean Corpuscular Hemoglobin Concent 32 g/dL (31-37) Red Cell Distribution Width 16.7 % (11.5-14.5) Platelet Count 315 x10^3/uL (140-400) Neutrophils (%) (Auto) 66 % (31-73) Lymphocytes (%) (Auto) 16 % (24-48) Monocytes (%) (Auto) 13 % (0-9) Eosinophils (%) (Auto) 4 % (0-3) Basophils (%) (Auto) 1 % (0-3) Neutrophils # (Auto) 4.1 x10^3uL (1.8-7.7) Lymphocytes # (Auto) 1.0 x10^3/uL (1.0-4.8) Monocytes # (Auto) 0.8 x10^3/uL (0.0-1.1) Eosinophils # (Auto) 0.2 x10^3/uL (0.0-0.7) Basophils # (Auto) 0.0 x10^3/uL (0.0-0.2) Sodium Level 138 mmol/L (136-145) Potassium Level 5.3 mmol/L (3.5-5.1) Chloride Level 100 mmol/L (98-107) Carbon Dioxide Level 28 mmol/L (21-32) Anion Gap 10 (6-14) Blood Urea Nitrogen 44 mg/dL (7-20) Creatinine 10.4 mg/dL (0.6-1.0) Estimated GFR (Cockcroft-Gault) 4.3 BUN/Creatinine Ratio 4 (6-20) Glucose Level 100 mg/dL (70-99) Calcium Level 9.0 mg/dL (8.5-10.1) Total Bilirubin 0.3 mg/dL (0.2-1.0) Aspartate Amino Transf (AST/SGOT) 17 U/L (15-37) Alanine Aminotransferase (ALT/SGPT) 15 U/L (14-59) Alkaline Phosphatase 111 U/L (46-116) Total Protein 7.1 g/dL (6.4-8.2) Albumin 2.8 g/dL (3.4-5.0) Albumin/Globulin Ratio 0.7 (1.0-1.7) Review of Systems Constitutional: yes: alert, oriented Eyes: Yes: no symptom reported Pulmonary: Yes no symptom reported Cardiovascular: Yes no symptom reported Gastrointestional: Yes: no symptom reported Genitourinary: Yes: no symptom reported Musculoskeletal: Yes: no symptom reported Skin: Yes no symptom reported Psychiatric/Neurological: Yes: no symptom reported Endocrine: Yes: no symptom reported Physical Exam Neurology: alert, oriented, follow commands Musculoskeletal: Osteoarthritis Assessment Assessment IMP ESRD ANEMIA COPD NSTEMI PULM HTN DM II DIASTOLIC CHF PLAN START ARANESP HD TODAY UF TO DW ANTIBIOTICS WILL FOLLOW CARLY ANDERSON MD Nov 01, 2018 15:23
[2018-11-01] MEDS: CINACALCET HCL 30 MG TABLET PO SCH (17:00)
[2018-11-01 18:30] VITALS: BP 123/63
[2018-11-01 19:40] VITALS: BP 112/54
[2018-11-01] MEDS: ATORVASTATIN CALCIUM 10 MG TABLET. PO SCH (20:30)
[2018-11-02 02:51] VITALS: BP 124/62
[2018-11-02 05:11] LABS: BASO # 0.1 x10^3/uL (0.0-0.2); BASO % 1 % (0-3); EOS # 0.3 x10^3/uL (0.0-0.7); EOS % 5 % (0-3); HEMATOCRIT 31.9 % (36.0-47.0); HEMOGLOBIN 9.9 g/dL (12.0-15.5); LYMPH # 0.9 x10^3/uL (1.0-4.8); LYMPH % 18 % (24-48); MEAN CORPUSCULAR HEMOGLOBIN 29 pg (25-35); MEAN CORPUSCULAR HGB CONC 31 g/dL (31-37); MEAN CORPUSCULAR VOLUME 92 fL (79-100); MONO # 0.7 x10^3/uL (0.0-1.1); MONO % 13 % (0-9); NEUT # 3.3 x10^3uL (1.8-7.7); NEUT % 63 % (31-73); PLATELET COUNT 321 x10^3/uL (140-400); RED BLOOD COUNT 3.48 x10^6/uL (3.50-5.40); RED CELL DISTRIBUTION WIDTH 17.1 % (11.5-14.5); WHITE BLOOD COUNT 5.3 x10^3/uL (4.0-11.0)
[2018-11-02 05:20] LABS: CALCIUM 8.8 mg/dL (8.5-10.1); CREATININE 7.2 mg/dL (0.6-1.0); GFR 6.5; POTASSIUM 4.9 mmol/L (3.5-5.1)
[2018-11-02 07:00] VITALS: BP 108/50
[2018-11-02] MEDS: INSULIN LISPRO 300 UNITS/3 ML INSULN.PEN. SQ SCH ×2 (08:00→12:00)
[2018-11-02] MEDS: CLOPIDOGREL BISULFATE 75 MG TABLET PO SCH (08:37)
[2018-11-02] MEDS: FERROUS SULFATE 325 MG TABLET. PO SCH (08:37)
[2018-11-02] MEDS: CALCIUM ACETATE 667 MG CAPSULE PO SCH ×2 (08:37→12:40)
[2018-11-02] MEDS: ASPIRIN ENTERIC COATED 81 MG TABLET.DR. PO SCH (08:37)
[2018-11-02 11:00] VITALS: BP 119/56
--- NOTE | 2018-11-02 13:14 | DISCH ---
DISCHARGE WITH HOME HEALTH DISCHARGE INFORMATION: Final Diagnosis: Problems Medical Problems: (1) Hyperkalemia Status: Acute Condition on Discharge: Stable CODE STATUS: Code Status: Full HOME HEALTH: Face to Face: I certify this patient is under my care and that I, or a nurse practitioner or physician's assistant hvac mechanic working with me, had a face to face encounter that meets the physician face to face encounter requirements with this patient on []. Medical Complications: Other ([place]) Physical Therapy For: Evalulation/Treatment Occupational Therapy For: Evaluation/Treatment Home Health Aide For: Self-care ADDICTION NURSE For: Community Resources POST DISCHARGE ORDERS: Activity Instructions for Disc: Activity as tolerated Weight Bearing Status after Di: No restrictions DIET AFTER DISCHARGE: hepatic Wound/Incision Care: Do not change dressing CHECKS AFTER DISCHARGE: Checks after discharge: Check blood press - daily, Check blood sugar, ac/hs, Check your Temp as needed, Weigh Yourself Daily TREATMENT/EQUIPMENT ORDERS: Adaptive Equipment Issued: None CERTIFICATION STATEMENT: Certification Statement: Certification Statement: Based on the above finding, I certify that this patient is confined to the home and needs intermittent intermediate care, physical therapy and/or speech therapy, or continues to need occupational therapy.~ This patient is under my care, and I have initiated the establishment of the plan of care.~ This patient will be followed by myself or a community physician who will periodically review the plan of care. Home Meds Active Scripts Albuterol Sulfate (PROAIR HFA INHALER) 8.5 Gm Hfa.aer.ad, 1 PUFF INH PRN Q6HRS PRN for SHORTNESS OF BREATH for 14 Days, INHALER 0 Refills Prov:RADHA BHARDWAJ MD 08/15/18 Doxycycline Hyclate (DOXYCYCLINE HYCLATE) 100 Mg Tablet, 100 MG PO BID for 7 Days, #14 TAB Prov:SATHYA ANTHONY MD 11/04/17 Reported Medications Clopidogrel Bisulfate (CLOPIDOGREL) 75 Mg Tablet, 1 TAB PO DAILY for PVD, #90 TAB 1 Refill 10/27/18 Clonidine (CATAPRES-TTS 2) 1 Each Patch.tdwk, 1 EACH TD WEEKLY, PATCH 11/03/17 Clonidine Hcl (CLONIDINE HCL) 0.2 Mg Tablet, 0.2 MG PO BID, TAB 11/02/17 Multivitamin, Min Cmb#25/Fa/D3 (DIALYVITE SUPREME D TABLET) 1 Each Tablet, 1 EACH PO DAILY, TAB 01/19/17 Sevelamer Carbonate (RENVELA) 800 Mg Tablet, 2 TAB PO TIDWMEALHC, #540 TAB 3 Refills 01/19/17 Cinacalcet Hcl (SENSIPAR) 30 Mg Tablet, 1 TAB PO DAILYWSUP, #90 TAB 3 Refills 01/17/17 Calcium Acetate (CALCIUM ACETATE) 667 Mg Tablet, 1334 MG PO TIDWMEALS for DIALYSIS PATIENTS, CAP 01/17/17 Lovastatin (LOVASTATIN) 10 Mg Tablet, 10 MG PO HS, TAB 07/03/16 Losartan Potassium (LOSARTAN POTASSIUM) 100 Mg Tablet, 100 MG PO DAILY, TAB 10/27/15 Amlodipine Besylate (AMLODIPINE BESYLATE) 10 Mg Tablet, 10 MG PO PRN DAILY PRN for HYPERTENSION, SEE COMMENTS, TAB 10/27/15 Ferrous Sulfate (FERROUS SULFATE) 325 Mg Tablet, 1 TAB PO DAILY, #30 TAB 3 Refills 10/27/15 Furosemide (LASIX) 40 Mg Tablet, 1 TAB PO DAILY, #90 TAB 1 Refill 10/27/15 Aspirin (ASPIR 81) 81 Mg Tablet., 1 TAB PO DAILY, #30 TAB 5 Refills 10/27/15 JASMIN BARCENAS III DO Nov 02, 2018 13:14
--- NOTE | 2018-11-02 13:51 | DS ---
DATE OF DISCHARGE: 11/02/2018 ADMISSION DIAGNOSES: Congestive heart failure with pulmonary edema. DISCHARGE DIAGNOSES: Resolving congestive heart failure, cellulitis of lower extremities, end-stage renal disease, on dialysis; hyperkalemia, pulmonary hypertension, anemia, peripheral vascular disease, morbid obesity, chronic obstructive pulmonary disease, diabetes, edema. CONSULTS: Dr. Santiago Kelley, Dr. Elizondo, Dr. Downey, Dr. Davies. PROCEDURES: Left common femoral artery ultrasound-guided access with left common iliac angioplasty and unable to stent the right iliac artery. HOSPITAL COURSE: The patient is a pleasant elderly female who presented with heart failure, bilateral lower extremity edema and vascular insufficiency. Her heart failure was actually systolic and diastolic, and acute on chronic. Her troponin was a little bit elevated at 0.57. The above consults were obtained. We diuresed her. Her prognosis long-term is guarded so we consulted Palliative Care. At this point, the patient wants to go home with home health. We plan to discharge to home with home health with close outpatient followup. DISPOSITION: Home. ACTIVITY: As tolerated. DIET: Low sodium. MEDICATIONS: Please see the MRAD. TOTAL TIME: 32 minutes. JASMIN BARCENAS DO DR: HARINDER/ana maria JOB#: [id number] / [id number]
--- NOTE | 2018-11-02 14:04 | PDOC ---
PROGRESS NOTES Chief Complaint Chief Complaint CHF Mild pulmonary vascular congestion Elevated troponin PVD Superficial cellulitis both lower legs ESRD on dialysis Hyperkalemia Secondary pulmonary hypertension Anemia Morbid obesity COPD Diabetes Bilateral LE edema History of Present Illness History of Present Illness Pt is an 88 y/o AA female who was admitted with CHF, elevated troponin and ESRD on dialysis. Today she is alert, awake sitting up in her chair. She states she is doing better. She has no new complaints. I discussed the pt care with her RN and PT/OT. Both agree that she can be D/C to home with home health. They state she does not want hospice care and has been refusing her PT/OT. Vitals Vitals Vital Signs Date Time Temp Pulse Resp B/P (MAP) Pulse Ox O2 Delivery O2 Flow Rate FiO2 11/02/18 11:00 97.9 73 20 119/56 (77) 91 Room Air 97.9 11/02/18 08:00 2.0 Physical Exam General: Alert, Oriented X3, Cooperative, No acute distress, mild distress Heart: Regular rate, Normal S1, Normal S2 Lungs: Crackles Abdomen: Soft, No tenderness Extremities: No clubbing, No cyanosis, Other (diminished pedal pulses, leg edema 2+ bilateral LE with tenderness, scabbed over wounds to RLE no oozing) Skin: Other (Wounds on right LE) Labs LABS Laboratory Tests Test 11/01/18 18:00 11/01/18 20:42 11/02/18 04:05 11/02/18 07:59 Glucose (Fingerstick) 80 mg/dL (70-99) 212 mg/dL (70-99) 104 mg/dL (70-99) White Blood Count 5.3 x10^3/uL (4.0-11.0) Red Blood Count 3.48 x10^6/uL (3.50-5.40) Hemoglobin 9.9 g/dL (12.0-15.5) Hematocrit 31.9 % (36.0-47.0) Mean Corpuscular Volume 92 fL (79-100) Mean Corpuscular Hemoglobin 29 pg (25-35) Mean Corpuscular Hemoglobin Concent 31 g/dL (31-37) Red Cell Distribution Width 17.1 % (11.5-14.5) Platelet Count 321 x10^3/uL (140-400) Neutrophils (%) (Auto) 63 % (31-73) Lymphocytes (%) (Auto) 18 % (24-48) Monocytes (%) (Auto) 13 % (0-9) Eosinophils (%) (Auto) 5 % (0-3) Basophils (%) (Auto) 1 % (0-3) Neutrophils # (Auto) 3.3 x10^3uL (1.8-7.7) Lymphocytes # (Auto) 0.9 x10^3/uL (1.0-4.8) Monocytes # (Auto) 0.7 x10^3/uL (0.0-1.1) Eosinophils # (Auto) 0.3 x10^3/uL (0.0-0.7) Basophils # (Auto) 0.1 x10^3/uL (0.0-0.2) Sodium Level 139 mmol/L (136-145) Potassium Level 4.9 mmol/L (3.5-5.1) Chloride Level 100 mmol/L (98-107) Carbon Dioxide Level 31 mmol/L (21-32) Anion Gap 8 (6-14) Blood Urea Nitrogen 27 mg/dL (7-20) Creatinine 7.2 mg/dL (0.6-1.0) Estimated GFR (Cockcroft-Gault) 6.5 Glucose Level 95 mg/dL (70-99) Calcium Level 8.8 mg/dL (8.5-10.1) Test 11/02/18 12:25 Glucose (Fingerstick) 100 mg/dL (70-99) Review of Systems Review of Systems Gen: denies fever, chills HEENT: denies cold symptoms Heart: denies CP, palp Lung: denies cough, SOA GI: denies pain, diarrhea Assessment and Plan Assessmemt and Plan Assessment: CHF Mild pulmonary vascular congestion Elevated troponin Superficial cellulitis both lower legs ESRD on dialysis Hyperkalemia Secondary pulmonary hypertension Anemia PVD Morbid obesity COPD Diabetes Edema Plan: Probable D/C to home with home health today Cardiac monitoring Hemodialysis M/W/F Not an open surgical candidate Lab - follow lytes PT/OT Home meds Appreciate subspecialist input Comment Review of Relevant I have reviewed the following items vicente (where applicable) has been applied. Labs Laboratory Tests Test 10/31/18 16:56 11/01/18 03:05 11/01/18 07:40 11/01/18 12:23 Glucose (Fingerstick) 95 mg/dL (70-99) 105 mg/dL (70-99) 88 mg/dL (70-99) White Blood Count 6.3 x10^3/uL (4.0-11.0) Red Blood Count 3.30 x10^6/uL (3.50-5.40) Hemoglobin 9.6 g/dL (12.0-15.5) Hematocrit 30.5 % (36.0-47.0) Mean Corpuscular Volume 92 fL (79-100) Mean Corpuscular Hemoglobin 29 pg (25-35) Mean Corpuscular Hemoglobin Concent 32 g/dL (31-37) Red Cell Distribution Width 16.7 % (11.5-14.5) Platelet Count 315 x10^3/uL (140-400) Neutrophils (%) (Auto) 66 % (31-73) Lymphocytes (%) (Auto) 16 % (24-48) Monocytes (%) (Auto) 13 % (0-9) Eosinophils (%) (Auto) 4 % (0-3) Basophils (%) (Auto) 1 % (0-3) Neutrophils # (Auto) 4.1 x10^3uL (1.8-7.7) Lymphocytes # (Auto) 1.0 x10^3/uL (1.0-4.8) Monocytes # (Auto) 0.8 x10^3/uL (0.0-1.1) Eosinophils # (Auto) 0.2 x10^3/uL (0.0-0.7) Basophils # (Auto) 0.0 x10^3/uL (0.0-0.2) Sodium Level 138 mmol/L (136-145) Potassium Level 5.3 mmol/L (3.5-5.1) Chloride Level 100 mmol/L (98-107) Carbon Dioxide Level 28 mmol/L (21-32) Anion Gap 10 (6-14) Blood Urea Nitrogen 44 mg/dL (7-20) Creatinine 10.4 mg/dL (0.6-1.0) Estimated GFR (Cockcroft-Gault) 4.3 BUN/Creatinine Ratio 4 (6-20) Glucose Level 100 mg/dL (70-99) Calcium Level 9.0 mg/dL (8.5-10.1) Total Bilirubin 0.3 mg/dL (0.2-1.0) Aspartate Amino Transf (AST/SGOT) 17 U/L (15-37) Alanine Aminotransferase (ALT/SGPT) 15 U/L (14-59) Alkaline Phosphatase 111 U/L (46-116) Total Protein 7.1 g/dL (6.4-8.2) Albumin 2.8 g/dL (3.4-5.0) Albumin/Globulin Ratio 0.7 (1.0-1.7) Test 11/01/18 18:00 11/01/18 20:42 11/02/18 04:05 11/02/18 07:59 Glucose (Fingerstick) 80 mg/dL (70-99) 212 mg/dL (70-99) 104 mg/dL (70-99) White Blood Count 5.3 x10^3/uL (4.0-11.0) Red Blood Count 3.48 x10^6/uL (3.50-5.40) Hemoglobin 9.9 g/dL (12.0-15.5) Hematocrit 31.9 % (36.0-47.0) Mean Corpuscular Volume 92 fL (79-100) Mean Corpuscular Hemoglobin 29 pg (25-35) Mean Corpuscular Hemoglobin Concent 31 g/dL (31-37) Red Cell Distribution Width 17.1 % (11.5-14.5) Platelet Count 321 x10^3/uL (140-400) Neutrophils (%) (Auto) 63 % (31-73) Lymphocytes (%) (Auto) 18 % (24-48) Monocytes (%) (Auto) 13 % (0-9) Eosinophils (%) (Auto) 5 % (0-3) Basophils (%) (Auto) 1 % (0-3) Neutrophils # (Auto) 3.3 x10^3uL (1.8-7.7) Lymphocytes # (Auto) 0.9 x10^3/uL (1.0-4.8) Monocytes # (Auto) 0.7 x10^3/uL (0.0-1.1) Eosinophils # (Auto) 0.3 x10^3/uL (0.0-0.7) Basophils # (Auto) 0.1 x10^3/uL (0.0-0.2) Sodium Level 139 mmol/L (136-145) Potassium Level 4.9 mmol/L (3.5-5.1) Chloride Level 100 mmol/L (98-107) Carbon Dioxide Level 31 mmol/L (21-32) Anion Gap 8 (6-14) Blood Urea Nitrogen 27 mg/dL (7-20) Creatinine 7.2 mg/dL (0.6-1.0) Estimated GFR (Cockcroft-Gault) 6.5 Glucose Level 95 mg/dL (70-99) Calcium Level 8.8 mg/dL (8.5-10.1) Test 11/02/18 12:25 Glucose (Fingerstick) 100 mg/dL (70-99) Laboratory Tests Test 11/01/18 18:00 11/01/18 20:42 11/02/18 04:05 11/02/18 07:59 Glucose (Fingerstick) 80 mg/dL (70-99) 212 mg/dL (70-99) 104 mg/dL (70-99) White Blood Count 5.3 x10^3/uL (4.0-11.0) Red Blood Count 3.48 x10^6/uL (3.50-5.40) Hemoglobin 9.9 g/dL (12.0-15.5) Hematocrit 31.9 % (36.0-47.0) Mean Corpuscular Volume 92 fL (79-100) Mean Corpuscular Hemoglobin 29 pg (25-35) Mean Corpuscular Hemoglobin Concent 31 g/dL (31-37) Red Cell Distribution Width 17.1 % (11.5-14.5) Platelet Count 321 x10^3/uL (140-400) Neutrophils (%) (Auto) 63 % (31-73) Lymphocytes (%) (Auto) 18 % (24-48) Monocytes (%) (Auto) 13 % (0-9) Eosinophils (%) (Auto) 5 % (0-3) Basophils (%) (Auto) 1 % (0-3) Neutrophils # (Auto) 3.3 x10^3uL (1.8-7.7) Lymphocytes # (Auto) 0.9 x10^3/uL (1.0-4.8) Monocytes # (Auto) 0.7 x10^3/uL (0.0-1.1) Eosinophils # (Auto) 0.3 x10^3/uL (0.0-0.7) Basophils # (Auto) 0.1 x10^3/uL (0.0-0.2) Sodium Level 139 mmol/L (136-145) Potassium Level 4.9 mmol/L (3.5-5.1) Chloride Level 100 mmol/L (98-107) Carbon Dioxide Level 31 mmol/L (21-32) Anion Gap 8 (6-14) Blood Urea Nitrogen 27 mg/dL (7-20) Creatinine 7.2 mg/dL (0.6-1.0) Estimated GFR (Cockcroft-Gault) 6.5 Glucose Level 95 mg/dL (70-99) Calcium Level 8.8 mg/dL (8.5-10.1) Test 11/02/18 12:25 Glucose (Fingerstick) 100 mg/dL (70-99) Medications Current Medications Aspirin (Mobibeam Aspirin) 325 mg 1X ONCE PO Last administered on 10/24/18 14:51 ; Start 10/24/18 at 14:45; Stop 10/24/18 at 14:46; Status DC Fentanyl Citrate (Fentanyl 2ml Vial) 50 mcg 1X ONCE IV Last administered on 16:34; Start 10/24/18 at 15:00; Stop 10/24/18 at 15:01; Status DC Bumetanide (Bumex) 1 mg 1X ONCE IV Last administered on 10/24/18at 16:35; Start 10/24/18 at 16:19; Stop 10/24/18 at 16:20; Status DC Calcium Gluconate (Calcium Gluconate) 1,000 mg 1X ONCE IVP Last administered on 10/24/18 16:34; Start 10/24/18 at 16:15; Stop 10/24/18 at 16:19; Status DC Insulin Human Regular (HumuLIN R VIAL) 10 unit 1X ONCE IV Last administered on 10/24/18at 16:36; Start 10/24/18 at 16:15; Stop 10/24/18 at 16:19; Status DC Dextrose (Dextrose 50%-Water Syringe) 25 gm 1X ONCE IV Last administered on 16:35; Start 10/24/18 at 16:15; Stop 10/24/18 at 16:19; Status DC Nitroglycerin (Nitro-Bid Oint) 1 inch 1X ONCE TP Last administered on 17:15; Start 10/24/18 at 17:15; Stop 10/24/18 at 17:16; Status DC Sodium Polystyrene Sulfonate (Kayexalate) 30 gm 1X ONCE PO Last administered on 10/24/18 17:16; Start 10/24/18 at 17:15; Stop 10/24/18 at 17:16; Status DC Ondansetron HCl (Zofran) 4 mg PRN Q8HRS PRN IV NAUSEA/VOMITING; Start 10/24/18 at 17:15; Stop 10/25/18 at 17:14; Status DC Fentanyl Citrate (Fentanyl 2ml Vial) 50 mcg Q2HR PRN IV PAIN Last administered on 10/25/18at 10:47; Start 10/24/18 at 17:15; Stop 10/25/18 at 17:14; Status DC Insulin Human Lispro (HumaLOG) 0-5 UNITS TIDWMEALS SQ ; Start 10/25/18 at 08:00 Dextrose (Dextrose 50%-Water Syringe) 12.5 gm PRN Q15MIN PRN IV SEE COMMENTS; Start 10/24/18 at 17:30 Dextrose (Dextrose 50%-Water Syringe) 25 gm 1X ONCE IV Last administered on 18:02; Start 10/24/18 at 18:00; Stop 10/24/18 at 18:04; Status DC Hydralazine HCl (Apresoline Inj) 20 mg 1X ONCE IVP Last administered on 18:09; Start 10/24/18 at 18:15; Stop 10/24/18 at 18:16; Status DC Ceftriaxone Sodium (Rocephin) 1 gm 1X ONCE IVP Last administered on 10/24/18 20:22; Start 10/24/18 at 19:30; Stop 10/24/18 at 19:31; Status DC Heparin Sodium (Porcine) (Heparin Sodium) 5,000 unit Q8HRS SQ Last administered on 10/25/18at 05:46; Start 10/24/18 at 22:00; Stop 10/25/18 at 10:18; Status DC Albuterol Sulfate (Ventolin Neb Soln) 2.5 mg PRN Q6HRS PRN INH SHORTNESS OF BREATH; Start 10/24/18 at 19:45 Amlodipine Besylate (Norvasc) 10 mg PRN DAILY PRN PO HYPERTENSION, SEE COMMENTS ; Start 10/24/18 at 19:45 Aspirin (Ecotrin) 81 mg DAILY PO Last administered on 11/02/18at 08:37; Start at 09:00 Cinacalcet (Sensipar) 30 mg DAILYWSUP PO Last administered on 10/31/18at 17:11; Start 10/25/18 at 17:00 Clonidine HCl (Catapres Tts-2) 1 patch WEEKLY TD Last administered on at 09:00; Start 10/31/18 at 09:00 Clonidine HCl (Catapres) 0.2 mg BID PO ; Start 10/24/18 at 21:00; Stop 10/24/18 at 21:00; Status DC Doxycycline Hyclate (Vibra-Tab) 100 mg BID PO ; Start 10/24/18 at 21:00; Stop 10/24/18 at 21:00; Status DC Ferrous Sulfate (Feosol) 325 mg DAILY PO Last administered on 11/02/18at 08:37; Start 10/25/18 at 09:00 Furosemide (Lasix) 40 mg DAILY PO Last administered on 10/26/18at 14:35; Start at 09:00; Stop 10/27/18 at 13:56; Status DC Calcium Acetate (Phoslo) 1,334 mg TIDWMEALS PO Last administered on 11/02/18at 12:40; Start 10/25/18 at 08:00 Aspirin (Ecotrin) 325 mg 1X ONCE PO Last administered on 10/25/18at 10:35; Start 10/25/18 at 10:30; Stop 10/25/18 at 10:31; Status DC Heparin Sodium/ Dextrose 500 ml @ 0 mls/hr CONT PRN IV SEE I/O RECORD; Start at 10:15; Status UNV Heparin Sodium/ Dextrose 500 ml @ 0 mls/hr CONT PRN IV SEE I/O RECORD Last administered on 10/25/18at 10:41; Start 10/25/18 at 10:30; Stop 10/26/18 at 16:24; Status DC Heparin Sodium (Porcine) (Heparin Sodium) 2,300 unit PRN Q6HRS PRN IV FOR UFH LEVEL LESS THAN 0.2 Last administered on 10/25/18at 10:42; Start 10/25/18 at 10:30 ; Stop 10/27/18 at 10:32; Status DC Sodium Chloride 1,000 ml @ 1,000 mls/hr Q1H PRN IV hypotension; Start 10/25/18 at 10:19; Stop 10/25/18 at 16:18; Status DC Sodium Chloride 1,000 ml @ 400 mls/hr Q2H30M PRN IV PATENCY; Start 10/25/18 at 10:19; Stop 10/25/18 at 22:18; Status DC Info (PHARMACY MONITORING -- do not chart) 1 each PRN DAILY PRN MC SEE COMMENTS ; Start 10/25/18 at 10:30; Stop 10/27/18 at 08:18; Status DC Info (Anti-Coagulation Monitoring By Pharmacy) 1 each PRN DAILY PRN MC SEE COMMENTS Last administered on 10/26/18at 11:24; Start 10/25/18 at 10:30; Stop at 10:32; Status DC Atorvastatin Calcium (Lipitor) 10 mg QHS PO Last administered on 11/01/18at 20: 30; Start 10/25/18 at 21:00 Fentanyl Citrate (Fentanyl 2ml Vial) 50 mcg PRN Q2HR PRN IV SEVERE PAIN Last administered on 10/31/18at 17:11; Start 10/26/18 at 08:30; Stop 11/01/18 at 12:19 ; Status DC Lidocaine HCl (Lidocaine 1% 20ml Vial) 20 ml STK-MED ONCE .ROUTE ; Start at 10:03; Stop 10/26/18 at 10:05; Status DC Heparin Sodium/ Sodium Chloride 500 ml @ As Directed STK-MED ONCE .ROUTE ; Start 10/26/18 at 10:03; Stop 10/26/18 at 10:05; Status DC Iodixanol (Visipaque 320) 100 ml STK-MED ONCE .ROUTE ; Start 10/26/18 at 10:52; Stop 10/26/18 at 10:54; Status DC Midazolam HCl (Versed) 2 mg STK-MED ONCE .ROUTE ; Start 10/26/18 at 11:18; Stop 10/26/18 at 11:20; Status DC Fentanyl Citrate (Fentanyl 2ml Vial) 100 mcg STK-MED ONCE .ROUTE ; Start at 11:18; Stop 10/26/18 at 11:20; Status DC Heparin Sodium/ Sodium Chloride (HEPARIN for ARTERIAL LINE FLUSH) 1,000 unit 1X ONCE IART Last administered on 10/26/18at 12:01; Start 10/26/18 at 12:00; Stop 10/26/18 at 12:01; Status DC Midazolam HCl (Versed) 1 mg 1X ONCE IV Last administered on 10/26/18at 12:01; Start 10/26/18 at 12:00; Stop 10/26/18 at 12:01; Status DC Fentanyl Citrate (Fentanyl 2ml Vial) 50 mcg 1X ONCE IV Last administered on 10/26/18at 12:02; Start 10/26/18 at 12:00; Stop 10/26/18 at 12:01; Status DC Iodixanol (Visipaque 320) 117 ml 1X ONCE IART Last administered on 10/26/18at 12 :01; Start 10/26/18 at 12:00; Stop 10/26/18 at 12:01; Status DC Lidocaine HCl 18 ml 1X ONCE IJ Last administered on 10/26/18at 11:22; Start 10/26 at 12:00; Stop 10/26/18 at 12:01; Status DC Sodium Chloride (Normal Saline Flush) 3 ml QSHIFT PRN IV AFTER MEDS AND BLOOD DRAWS; Start 10/26/18 at 12:15 Nitroglycerin (Nitrostat) 0.4 mg PRN Q5MIN PRN SL CHEST PAIN; Start 10/26/18 at 12:15 Sodium Chloride 1,000 ml @ 1,000 mls/hr Q1H PRN IV hypotension; Start 10/27/18 at 08:10; Stop 10/27/18 at 14:09; Status DC Sodium Chloride 1,000 ml @ 400 mls/hr Q2H30M PRN IV PATENCY; Start 10/27/18 at 08:10; Stop 10/27/18 at 20:09; Status DC Info (PHARMACY MONITORING -- do not chart) 1 each PRN DAILY PRN MC SEE COMMENTS ; Start 10/27/18 at 08:15; Status Cancel Hydromorphone HCl (Dilaudid) 0.5 mg PRN Q4HRS PRN IVP MODERATE PAIN Last administered on 11/01/18at 12:05; Start 10/27/18 at 14:45; Stop 11/01/18 at 12:19 ; Status DC Acetaminophen/ Hydrocodone Bitart (Lortab 5/325) 1 tab PRN Q6HRS PRN PO PAIN Last administered on 11/01/18at 08:56; Start 10/27/18 at 14:45; Stop 11/01/18 at 12:19; Status DC Naloxone HCl (Narcan) 0.4 mg PRN Q2MIN PRN IV SEE COMMENTS; Start 10/27/18 at 14 :45 Clopidogrel Bisulfate (Plavix) 75 mg DAILYWBKFT PO Last administered on at 08:37; Start 10/27/18 at 18:00 Iodixanol (Visipaque 320) 100 ml STK-MED ONCE .ROUTE ; Start 10/28/18 at 13:36; Stop 10/28/18 at 13:39; Status DC Lidocaine/Sodium Bicarbonate (Buffered Lidocaine 1%) 3 ml STK-MED ONCE .ROUTE ; Start 10/28/18 at 13:37; Stop 10/28/18 at 13:39; Status DC Heparin Sodium/ Sodium Chloride 1,000 ml @ As Directed STK-MED ONCE .ROUTE ; Start 10/28/18 at 13:37; Stop 10/28/18 at 13:39; Status DC Iodixanol (Visipaque 320) 50 ml STK-MED ONCE .ROUTE ; Start 10/28/18 at 13:38; Stop 10/28/18 at 13:39; Status DC Midazolam HCl (Versed) 2 mg STK-MED ONCE .ROUTE ; Start 10/28/18 at 14:22; Stop 10/28/18 at 14:25; Status DC Fentanyl Citrate (Fentanyl 2ml Vial) 100 mcg STK-MED ONCE .ROUTE ; Start at 14:23; Stop 10/28/18 at 14:25; Status DC Heparin Sodium (Porcine) (Heparin Sodium) 10,000 unit STK-MED ONCE .ROUTE ; Start 10/28/18 at 14:23; Stop 10/28/18 at 14:25; Status DC Heparin Sodium/ Sodium Chloride (HEPARIN for ARTERIAL LINE FLUSH) 1,000 unit 1X ONCE IART Last administered on 10/28/18at 15:15; Start 10/28/18 at 15:15; Stop 10/28/18 at 15:27; Status DC Lidocaine/Sodium Bicarbonate (Buffered Lidocaine 1%) 3 ml 1X ONCE IJ Last administered on 10/28/18at 15:15; Start 10/28/18 at 15:15; Stop 10/28/18 at 15:27; Status DC Midazolam HCl (Versed) 2 mg 1X ONCE IV Last administered on 10/28/18 15:15; Start 10/28/18 at 15:15; Stop 10/28/18 at 15:27; Status DC Fentanyl Citrate (Fentanyl 2ml Vial) 100 mcg 1X ONCE IV Last administered on 15:15; Start 10/28/18 at 15:15; Stop 10/28/18 at 15:27; Status DC Heparin Sodium (Porcine) (Heparin Sodium) 5,000 unit 1X ONCE IV Last administered on 10/28/18at 15:15; Start 10/28/18 at 15:15; Stop 10/28/18 at 15:27; Status DC Iodixanol (Visipaque 320) 50 ml 1X ONCE IART Last administered on 10/28/18at 15: 15; Start 10/28/18 at 15:15; Stop 10/28/18 at 15:27; Status DC Iodixanol (Visipaque 320) 100 ml STK-MED ONCE .ROUTE ; Start 10/28/18 at 15:33; Stop 10/28/18 at 15:35; Status DC Iodixanol (Visipaque 320) 100 ml 1X ONCE IART Last administered on 10/28/18at 15 :45; Start 10/28/18 at 15:45; Stop 10/28/18 at 15:46; Status DC Info (CONTRAST GIVEN -- Rx MONITORING) 1 each PRN DAILY PRN MC SEE COMMENTS; Start 10/28/18 at 15:45; Stop 10/30/18 at 15:44; Status DC Heparin Sodium/ Sodium Chloride 500 ml @ As Directed STK-MED ONCE .ROUTE ; Start 10/28/18 at 15:38; Stop 10/28/18 at 15:40; Status DC Sodium Chloride 1,000 ml @ 1,000 mls/hr Q1H PRN IV hypotension; Start 10/29/18 at 09:18; Stop 10/29/18 at 15:17; Status DC Sodium Chloride 1,000 ml @ 400 mls/hr Q2H30M PRN IV PATENCY; Start 10/29/18 at 09:18; Stop 10/29/18 at 21:17; Status DC Info (PHARMACY MONITORING -- do not chart) 1 each PRN DAILY PRN MC SEE COMMENTS ; Start 10/29/18 at 09:30 Acetaminophen/ Hydrocodone Bitart (Lortab 5/325) 2 tab PRN Q4HRS PRN PO MODERATE TO SEVERE PAIN; Start 11/01/18 at 12:30 Fentanyl (Duragesic 50mcg/ Hr Patch) 1 patch Q3DAYS TD Last administered on 08/09at 18:25; Start 11/01/18 at 13:00 Sodium Chloride 1,000 ml @ 1,000 mls/hr Q1H PRN IV hypotension; Start 11/01/18 at 13:38; Stop 11/01/18 at 19:37; Status DC Sodium Chloride 1,000 ml @ 400 mls/hr Q2H30M PRN IV PATENCY; Start 11/01/18 at 13:38; Stop 11/02/18 at 01:37; Status DC Info (PHARMACY MONITORING -- do not chart) 1 each PRN DAILY PRN MC SEE COMMENTS ; Start 11/01/18 at 13:45; Status UNV Info (PHARMACY MONITORING -- do not chart) 1 each PRN DAILY PRN MC SEE COMMENTS ; Start 11/01/18 at 13:45 Lidocaine HCl (Xylocaine-Mpf 1% 2ml Vial) 2 ml 1X ONCE ID ; Start 11/01/18 at 13:45; Stop 11/01/18 at 13:51; Status DC Active Scripts Active Proair Hfa Inhaler (Albuterol Sulfate) 8.5 Gm Hfa.aer.ad 1 Puff INH PRN Q6HRS PRN 14 Days Doxycycline Hyclate 100 Mg Tablet 100 Mg PO BID 7 Days Reported Clopidogrel (Clopidogrel Bisulfate) 75 Mg Tablet 1 Tab PO DAILY Catapres-Tts 2 (Clonidine) 1 Each Patch.tdwk 1 Each TD WEEKLY Clonidine Hcl 0.2 Mg Tablet 0.2 Mg PO BID Dialyvite Seven Points D Tablet (Multivitamin, Min Cmb#25/Fa/D3) 1 Each Tablet 1 Each PO DAILY Renvela (Sevelamer Carbonate) 800 Mg Tablet 2 Tab PO TIDWMEALHC Sensipar (Cinacalcet Hcl) 30 Mg Tablet 1 Tab PO DAILYWSUP Calcium Acetate 667 Mg Tablet 1,334 Mg PO TIDWMEALS Lovastatin 10 Mg Tablet 10 Mg PO HS Losartan Potassium 100 Mg Tablet 100 Mg PO DAILY Amlodipine Besylate 10 Mg Tablet 10 Mg PO PRN DAILY PRN Ferrous Sulfate 325 Mg Tablet 1 Tab PO DAILY Lasix (Furosemide) 40 Mg Tablet 1 Tab PO DAILY Aspir 81 (Aspirin) 81 Mg Tablet. 1 Tab PO DAILY Vitals/I & O Vital Sign - Last 24 Hours 11/01/18 11/01/18 11/01/18 11/01/18 15:00 18:25 18:30 19:38 Temp 98.6 98.6 Pulse 63 Resp 18 B/P (MAP) 123/63 (83) Pulse Ox 99 O2 Delivery Room Air Room Air Room Air 11/01/18 11/01/18 11/02/18 11/02/18 19:40 22:25 02:51 07:00 Temp 97.6 97.9 98.2 97.6 97.9 98.2 Pulse 82 79 77 Resp 16 18 16 18 B/P (MAP) 112/54 (73) 124/62 (82) 108/50 (69) Pulse Ox 98 96 95 O2 Delivery Room Air Room Air Room Air Room Air 11/02/18 11/02/18 08:00 11:00 Temp 97.9 97.9 Pulse 73 Resp 20 B/P (MAP) 119/56 (77) Pulse Ox 91 O2 Delivery Room Air Room Air O2 Flow Rate 2.0 Intake and Output 11/01/18 11/01/18 11/02/18 14:59 22:59 06:59 Intake Total 820 ml 0 ml 300 ml Balance 820 ml 0 ml 300 ml CASTLE,NIAL K III DO Nov 02, 2018 14:04
--- NOTE | 2018-11-02 14:18 | PDOC ---
Renal-Progress Notes Subjective Notes Notes LESS SOB History of Present Illness Hx of present illness STABLE Vitals Vitals Vital Signs Date Time Temp Pulse Resp B/P (MAP) Pulse Ox O2 Delivery O2 Flow Rate FiO2 11/02/18 11:00 97.9 73 20 119/56 (77) 91 Room Air 97.9 11/02/18 08:00 2.0 Weight Weight [ ] I.O. Intake and Output Intake and Output 11/02/18 06:59 Intake Total 1120 ml Balance 1120 ml Intake Oral 1120 ml # Bowel Movements 1 Labs Labs Laboratory Tests Test 11/01/18 18:00 11/01/18 20:42 11/02/18 04:05 11/02/18 07:59 Glucose (Fingerstick) 80 mg/dL (70-99) 212 mg/dL (70-99) 104 mg/dL (70-99) White Blood Count 5.3 x10^3/uL (4.0-11.0) Red Blood Count 3.48 x10^6/uL (3.50-5.40) Hemoglobin 9.9 g/dL (12.0-15.5) Hematocrit 31.9 % (36.0-47.0) Mean Corpuscular Volume 92 fL (79-100) Mean Corpuscular Hemoglobin 29 pg (25-35) Mean Corpuscular Hemoglobin Concent 31 g/dL (31-37) Red Cell Distribution Width 17.1 % (11.5-14.5) Platelet Count 321 x10^3/uL (140-400) Neutrophils (%) (Auto) 63 % (31-73) Lymphocytes (%) (Auto) 18 % (24-48) Monocytes (%) (Auto) 13 % (0-9) Eosinophils (%) (Auto) 5 % (0-3) Basophils (%) (Auto) 1 % (0-3) Neutrophils # (Auto) 3.3 x10^3uL (1.8-7.7) Lymphocytes # (Auto) 0.9 x10^3/uL (1.0-4.8) Monocytes # (Auto) 0.7 x10^3/uL (0.0-1.1) Eosinophils # (Auto) 0.3 x10^3/uL (0.0-0.7) Basophils # (Auto) 0.1 x10^3/uL (0.0-0.2) Sodium Level 139 mmol/L (136-145) Potassium Level 4.9 mmol/L (3.5-5.1) Chloride Level 100 mmol/L (98-107) Carbon Dioxide Level 31 mmol/L (21-32) Anion Gap 8 (6-14) Blood Urea Nitrogen 27 mg/dL (7-20) Creatinine 7.2 mg/dL (0.6-1.0) Estimated GFR (Cockcroft-Gault) 6.5 Glucose Level 95 mg/dL (70-99) Calcium Level 8.8 mg/dL (8.5-10.1) Test 11/02/18 12:25 Glucose (Fingerstick) 100 mg/dL (70-99) Review of Systems Constitutional: yes: alert, oriented Eyes: Yes: no symptom reported Pulmonary: Yes no symptom reported Cardiovascular: Yes no symptom reported Gastrointestional: Yes: no symptom reported Genitourinary: Yes: no symptom reported Musculoskeletal: Yes: no symptom reported Skin: Yes no symptom reported Psychiatric/Neurological: Yes: no symptom reported Endocrine: Yes: no symptom reported Physical Exam General Appearance: no apparent distress Skin: warm Respiratory: decreased breath sounds Heart: S1S2 Abdomen: soft, bowel sounds present Genitourinary: bladder flat Extremities: pulses present Neurology: alert, oriented, follow commands Assessment Assessment IMP ESRD ANEMIA COPD NSTEMI PULM HTN DM II DIASTOLIC CHF PLAN CONT [facility] HD TOMORROW WILL FOLLOW CARLY ANDERSON MD Nov 02, 2018 14:18
[2018-11-02 15:00] VITALS: BP 125/58
--- NOTE | 2018-11-02 15:31 | NUR ---
SS following up with discharge planning. SS received notification for [facility]. SS phoned and faxed referral to [facility], , [facility], . [facility] stated that it would be a week before they could start services. [facility] stated that they could see pt in 24-48 hours. [facility] to initiate services for pt. Pt's RN notified.
--- NOTE | 2018-11-02 17:00 | NUR ---
DISCHARGED PATIENT TO HOME. DISCHARGE INSTRUCTION GIVEN TO [employer] OVER THE PHONE WELL TO PATIENT. PIV AND HEART MONITOR REMOVED. AWAITS A RIDE FROM [employer].
[2018-11-02] MEDS ORDERED: FENT1PAT15 TD (17:11)
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
== END 2018-11-02 20:15 | disposition home health service (06) | DRG 252 ==
LOC: ER 13:44 → 2 SOUTH 17:08
PROVIDERS: ADMIT Family Medicine; ATTEND Family Medicine
PROC: 5A1D70Z Performance of Urinary Filtration, Intermittent, Less than 6 Hours Per Day (ICD-10-PCS; 2018-10-25)
PROC: 4A023N7 Measurement of Cardiac Sampling and Pressure, Left Heart, Percutaneous Approach (ICD-10-PCS; 2018-10-26)
PROC: B2111ZZ Fluoroscopy of Multiple Coronary Arteries using Low Osmolar Contrast (ICD-10-PCS; 2018-10-26)
PROC: B41D1ZZ Fluoroscopy of Aorta and Bilateral Lower Extremity Arteries using Low Osmolar Contrast (ICD-10-PCS; 2018-10-26)
PROC: 5A1D70Z Performance of Urinary Filtration, Intermittent, Less than 6 Hours Per Day (ICD-10-PCS; 2018-10-27)
PROC: 047D3ZZ Dilation of Left Common Iliac Artery, Percutaneous Approach (ICD-10-PCS; principal; 2018-10-28)
PROC: B41D1ZZ Fluoroscopy of Aorta and Bilateral Lower Extremity Arteries using Low Osmolar Contrast (ICD-10-PCS; 2018-10-28)
PROC: 5A1D70Z Performance of Urinary Filtration, Intermittent, Less than 6 Hours Per Day (ICD-10-PCS; 2018-10-29)
PROC: 5A1D70Z Performance of Urinary Filtration, Intermittent, Less than 6 Hours Per Day (ICD-10-PCS; 2018-11-01)
DX: I21.4 Non-ST elevation (NSTEMI) myocardial infarction (principal); N18.6 End stage renal disease; I50.43 Acute on chronic combined systolic (congestive) and diastolic (congestive) heart failure; I13.2 Hypertensive heart and chronic kidney disease with heart failure and with stage 5 chronic kidney disease, or end stage renal disease; J98.11 Atelectasis; L03.115 Cellulitis of right lower limb; L03.116 Cellulitis of left lower limb; E11.51 Type 2 diabetes mellitus with diabetic peripheral angiopathy without gangrene; I70.229 Atherosclerosis of native arteries of extremities with rest pain, unspecified extremity; D63.8 Anemia in other chronic diseases classified elsewhere; E03.9 Hypothyroidism, unspecified; E11.22 Type 2 diabetes mellitus with diabetic chronic kidney disease; E11.649 Type 2 diabetes mellitus with hypoglycemia without coma; E66.01 Morbid (severe) obesity due to excess calories; E78.5 Hyperlipidemia, unspecified; E87.5 Hyperkalemia; I25.10 Atherosclerotic heart disease of native coronary artery without angina pectoris; E21.3 Hyperparathyroidism, unspecified; I27.29 Other secondary pulmonary hypertension; I70.201 Unspecified atherosclerosis of native arteries of extremities, right leg; I70.8 Atherosclerosis of other arteries; M19.90 Unspecified osteoarthritis, unspecified site; I99.8 Other disorder of circulatory system; J44.9 Chronic obstructive pulmonary disease, unspecified; Z53.20 Procedure and treatment not carried out because of patient's decision for unspecified reasons; Z83.3 Family history of diabetes mellitus; Z86.711 Personal history of pulmonary embolism; Z79.02 Long term (current) use of antithrombotics/antiplatelets; Z90.710 Acquired absence of both cervix and uterus; Z99.2 Dependence on renal dialysis; Z79.4 Long term (current) use of insulin; Z68.34 Body mass index [BMI] 34.0-34.9, adult
CPT/HCPCS: 36246; 36415; 71045; 75625; 75630; 75710; 76937; 80048; 80053; 80061; 80069; 82553; 82962; 83605; 83690; 83735; 83880; 84484; 85025; 85520; 85610; 85730; 93005; 93306; 93458; 93970; 94760; 96374; 96375; 99152; 99153; C1713; C1725; C1760; C1769; C1892; C1894; G0269; J0360; J0610; J0696; J1170; J1644; J1815; J2001; J2250; J3010; J3490; J7042; Q9967; 97530; 97535; 99285-25; G0378

== ENCOUNTER 2018-11-09 02:30 | Inpatient (IN) | payer OTHER ==
[~2018-11-09] VITALS: Ht 157.5 cm; Wt 81.0 kg
[~2018-11-09 02:30] MED LIST changes: +CLOP75TA PO; +FENT1PAT15 TD
[2018-11-09 03:30] LABS: BASO # 0.1 x10^3/uL (0.0-0.2); BASO % 1 % (0-3); EOS # 0.1 x10^3/uL (0.0-0.7); EOS % 1 % (0-3); HEMATOCRIT 31.1 % (36.0-47.0); HEMOGLOBIN 10.7 g/dL (12.0-15.5); LYMPH # 0.9 x10^3/uL (1.0-4.8); LYMPH % 11 % (24-48); MEAN CORPUSCULAR HEMOGLOBIN 31 pg (25-35); MEAN CORPUSCULAR HGB CONC 34 g/dL (31-37); MEAN CORPUSCULAR VOLUME 90 fL (79-100); MONO % 11 % (0-9); NEUT # 6.5 x10^3uL (1.8-7.7); NEUT % 76 % (31-73); PLATELET COUNT 337 x10^3/uL (140-400); RED BLOOD COUNT 3.45 x10^6/uL (3.50-5.40); RED CELL DISTRIBUTION WIDTH 16.3 % (11.5-14.5); WHITE BLOOD COUNT 8.6 x10^3/uL (4.0-11.0)
[2018-11-09] MEDS ORDERED: fentaNYL PF VIAL 100 MCG/2 ML VIAL IV ONE ×2 (03:30→09:15)
[2018-11-09 03:37] LABS: CALCIUM 8.7 mg/dL (8.5-10.1); CREATININE 6.4 mg/dL (0.6-1.0); GFR 7.5
[2018-11-09 03:40] LABS: PROTHROMBIN TIME PATIENT 14.2 SEC (11.7-14.0)
[2018-11-09 03:43] LABS: ALBUMIN/GLOBULIN RATIO 0.7 (1.0-1.7); TOTAL BILIRUBIN 0.4 mg/dL (0.2-1.0); TOTAL PROTEIN 7.5 g/dL (6.4-8.2)
[2018-11-09 04:37] LABS: % BASOS 1 % (0-3); % EOS 2 % (0-5); % LYMPHS 12 % (24-48); % MONOS 10 % (0-10); % SEGS 75 % (35-66); ANISOCYTOSIS SLIGHT; HYPOCHROMIA SLIGHT; PLT ESTIMATE ADEQUATE (ADEQUATE); SPHEROCYTES OCC
--- NOTE | 2018-11-09 04:59 | RAD ---
INDICATION: LT ARM PAIN, COLD HAND, NUMBNESS COMPARISON: None. FINDINGS: Spectral Doppler, color grayscale sound images are obtained through left arm arterial system. Limited evaluation since the patient could not tolerate at the time of exam. Vascular flow seen within the left common carotid as well as the subclavian artery. 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 There is also vascular flow in the left axillary artery which has a very monophasic waveform with blunted appearance. The anastomosis of the left brachial artery is patent with monophasic waveform. Vascular flow seen within the left AV graft with monophasic waveform. There is an additional known thrombosed graft which is seen on this exam as well. IMPRESSION: 1. Left forearm graft is thrombosed. 2. AV graft within the upper arm appears patent with slow flow within and monophasic waveforms with blunted appearance. Region such as narrowing is possible given this finding. Electronically signed by: Stanley Garcia MD (11/09/2018 4:57 AM) [facility]
[2018-11-09] MEDS ORDERED: fentaNYL PF VIAL 100 MCG/2 ML VIAL IV PRN (05:45)
[2018-11-09] MEDS ORDERED: HEPARIN 25,000UTS/500ML PREMIX 500 ML IV PRN (05:45)
[2018-11-09] MEDS ORDERED: ANTI-COAG MONITOR BY PHARMACY. MC PRN (05:45)
--- NOTE | 2018-11-09 05:53 | PHYS DOC ---
Past Medical History Past Medical History: Diabetes-Type II, Hypertension, Renal Disease, Renal Failure, Vascular Disease Additional Past Medical Histor: PVD,OBESITY Past Surgical History: Other Additional Past Surgical Histo: NON CANCER "OVARIAN MASS" , dialysis shunt placement Alcohol Use: None Drug Use: None Adult General Chief Complaint Chief Complaint: WEAKNESS/GENERALIZED HPI HPI Patient is a 88 year old F BIBA WITH LEFT ARM PAIN AND NUMBNESS. ESRD HD AV FISTULA LEFT ARM, TONS OF ISSUES WITH STENOSIS AND THROMBOSIS IN THE LEFT UPPER EXTREMITY. 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 HAD DIALYSIS YESTERDAY (THURSDAY) WITHOUT DIFFICULTY. DENIES CHEST PAIN. HAND FEELS NUMB AND PINS AND NEEDLES. NO OTHER STROKE SYMPTOMS NO CHANGE IN SPEECH, NO WEAKNESS IN LEFT LEG OR FACE Review of Systems Review of Systems HX LIMITED BY PATIENT COOPERATION AND SEVERITY OF PAIN Current Medications Current Medications Current Medications Medications (Trade) Dose Ordered Sig/Virgil Start Time Stop Time Status Last Admin Dose Admin Fentanyl Citrate (Fentanyl 2ml Vial) 50 mcg PRN Q2HR PRN 11/09/18 05:45 11/10/18 05:44 Heparin Sodium/ Dextrose 500 ml @ 0 mls/hr CONT PRN 11/09/18 05:45 Info (Anti-Coagulation Monitoring By Pharmacy) 1 each PRN DAILY PRN 11/09/18 05:45 Lorazepam (Ativan) 0.5 mg 1X ONCE 11/09/18 06:00 11/09/18 06:01 Allergies Allergies Allergies Coded Allergies Type Severity Reaction Last Updated Verified No Known Drug Allergies 07/14/17 No Physical Exam Physical Exam Constitutional: Well developed, well nourished, PAINFUL distress, non-toxic appearance. [] HENT: Normocephalic, atraumatic, bilateral external ears normal, oropharynx moist, no oral exudates, nose normal. [] Eyes: PERRLA, EOMI, conjunctiva normal, no discharge. [] Neck: Normal range of motion, no tenderness, supple, no stridor. [] Cardiovascular:Heart rate regular rhythm,2/6 SYSTOLIC MURMUR Lungs & Thorax: Bilateral breath sounds clear to auscultation [] Abdomen: Bowel sounds normal, soft, no tenderness, no masses, no pulsatile masses. [] Skin: Warm, dry, no erythema, no rash. [] Extremities: NO THRILL PALPABLE IN EITHER AV FISTULA IN LEFT UPPER ARM.NO RADIAL PULSE IN LEFT ARM. THE HAND IS COOL CAP REFILL IS SLUGGISH. COULD NOT DOPPLER A RADIAL PULSE EITHER. Neurologic: Alert and oriented X 3,DECREASD SENSATION TO TOUCH IN LEFT ARM, DECREASED STRENGTH DISTAL TO ELBOW Psychologic: Affect normal, judgement normal, mood normal. [] Current Patient Data Vital Signs Vital Signs Date Time Temp Pulse Resp B/P (MAP) Pulse Ox O2 Delivery O2 Flow Rate FiO2 11/09/18 05:09 87 18 95 11/09/18 03:35 Room Air 11/09/18 02:32 98.0 155/72 (99) 98.0 Lab Values Laboratory Tests Test 11/09/18 03:15 White Blood Count 8.6 x10^3/uL (4.0-11.0) Red Blood Count 3.45 x10^6/uL (3.50-5.40) L Hemoglobin 10.7 g/dL (12.0-15.5) L Hematocrit 31.1 % (36.0-47.0) L Mean Corpuscular Volume 90 fL (79-100) Mean Corpuscular Hemoglobin 31 pg (25-35) Mean Corpuscular Hemoglobin Concent 34 g/dL (31-37) Red Cell Distribution Width 16.3 % (11.5-14.5) H Platelet Count 337 x10^3/uL (140-400) Neutrophils (%) (Auto) 76 % (31-73) H Lymphocytes (%) (Auto) 11 % (24-48) L Monocytes (%) (Auto) 11 % (0-9) H Eosinophils (%) (Auto) 1 % (0-3) Basophils (%) (Auto) 1 % (0-3) Neutrophils # (Auto) 6.5 x10^3uL (1.8-7.7) Lymphocytes # (Auto) 0.9 x10^3/uL (1.0-4.8) L Monocytes # (Auto) 1.0 x10^3/uL (0.0-1.1) Eosinophils # (Auto) 0.1 x10^3/uL (0.0-0.7) Basophils # (Auto) 0.1 x10^3/uL (0.0-0.2) Segmented Neutrophils % 75 % (35-66) H Lymphocytes % 12 % (24-48) L Monocytes % 10 % (0-10) Eosinophils % 2 % (0-5) Basophils % 1 % (0-3) Platelet Estimate Adequate (ADEQUATE) Hypochromasia Slight Anisocytosis Slight Spherocytes Occ Prothrombin Time 14.2 SEC (11.7-14.0) H Prothrombin Time INR 1.1 (0.8-1.1) Sodium Level 143 mmol/L (136-145) Potassium Level 4.0 mmol/L (3.5-5.1) Chloride Level 99 mmol/L (98-107) Carbon Dioxide Level 32 mmol/L (21-32) Anion Gap 12 (6-14) Blood Urea Nitrogen 21 mg/dL (7-20) H Creatinine 6.4 mg/dL (0.6-1.0) H Estimated GFR (Cockcroft-Gault) 7.5 BUN/Creatinine Ratio 3 (6-20) L Glucose Level 132 mg/dL (70-99) H Calcium Level 8.7 mg/dL (8.5-10.1) Total Bilirubin 0.4 mg/dL (0.2-1.0) Aspartate Amino Transferase (AST) 27 U/L (15-37) Alanine Aminotransferase (ALT) 19 U/L (14-59) Alkaline Phosphatase 124 U/L (46-116) H Troponin I Quantitative 0.066 ng/mL (0.000-0.055) Total Protein 7.5 g/dL (6.4-8.2) Albumin 3.0 g/dL (3.4-5.0) L Albumin/Globulin Ratio 0.7 (1.0-1.7) L Laboratory Tests 11/09/18 03:15 Laboratory Tests 11/09/18 03:15 EKG EKG []EKG NSR RATE [address] DEPRESSIONS LATERALLY TWI NOTED WELL. NO STEMI. Radiology/Procedures Radiology/Procedures [] Impressions: FINDINGS: Spectral Doppler, color grayscale sound images are obtained through left arm arterial system. Limited evaluation since the patient could not tolerate at the time of exam. Vascular flow seen within the left common carotid as well as the subclavian artery. 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 There is also vascular flow in the left axillary artery which has a very monophasic waveform with blunted appearance. The anastomosis of the left brachial artery is patent with monophasic waveform. Vascular flow seen within the left AV graft with monophasic waveform. There is an additional known thrombosed graft which is seen on this exam as well. IMPRESSION: 1. Left forearm graft is thrombosed. 2. AV graft within the upper arm appears patent with slow flow within and monophasic waveforms with blunted appearance. Region such as narrowing is possible given this finding. Electronically signed by: Stanley Garcia MD (11/09/2018 4:57 AM) [facility] Course & Med Decision Making Course & Med Decision Making Pertinent Labs and Imaging studies reviewed. (See chart for details) 88 YO F HX OF PVD, CAD , ESRD, P/W NUMB/PAINFUL LEFT ARM AND NO PULSE. U/S NOTED ABOVE D/W JENISE AT 530AM, RECOMMENDS HEPARIN AND HE WILL ADD ON FIRST CASE, PERHAPS THERE IS TIGHT SUBCLAVIAN LEADING TO REDUCED FLOW. 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 I CALLED U/S TECH AND ASKED TO HAVE IMAGES OF THESE AREAS IF POSSIBLE , PT WAS VERY CHALLENGING SCAN DUE TO COMPLIANCE. D/W GRANDDAUGTHER AMARJIT IN DETAIL, INCLUDING WOULD LIKE FULL CODE UNTIL FAMILY CAN HAVE DETAILED DISCUSSION ABOUT THIS, I ASKED THE PATIENT ABOUT HER CODE STATUS AND SHE SAID SHE DIDNT KNOW. I DID TELL GRANDDAUGHTER DNR SEEMED VERY REASONABLE GIVEN SEVERE UNDERLYING CAD NOT AMENABLE TO CABG HEPARIN ORDERED D/W JENNIFER FOR ADMIT Ra Disclaimer Ra Disclaimer This electronic medical record was generated, in whole or in part, using a voice recognition dictation system. Departure Departure Impression: Primary Impression: AV graft malfunction Disposition: ADMITTED INPATIENT Admitting Physician: Lilibeth Dimas Condition: STABLE Referrals: URMILA HAGER MD (PCP) IVETT TORRES MD Nov 09, 2018 05:52
[2018-11-09 06:45] VITALS: BP 137/53
--- NOTE | 2018-11-09 07:08 | NUR ---
Pt wheeled to unit per [facility] ED @ [id number]. Tele placed.
[2018-11-09] MEDS ORDERED: IODIXANOL 320 MG/ML 100 ML VIAL. ONE ×5 (07:15→09:41)
[2018-11-09] MEDS ORDERED: LIDOCAINE WITH 8.4% SOD BICARB 3 ML DISP.SYRIN. ONE (07:15)
--- NOTE | 2018-11-09 07:25 | NUR ---
Patient to interventional radiology per bed. Heparin drip infusing at 20ml/hr, taken with patient. Note left arm cold to touch, no definite palpable pulse, buitt, or thrill noted. Right arm cool, hand warm. No visitors with patient at this time.
--- NOTE | 2018-11-09 07:35 | EKG ---
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
[2018-11-09] MEDS ORDERED: IODIXANOL 320 MG/ML 50ML VIAL. ONE ×2 (07:44→10:00)
[2018-11-09] MEDS ORDERED: fentaNYL PF VIAL 100 MCG/2 ML VIAL ONE (07:48)
[2018-11-09] MEDS ORDERED: MIDAZOLAM HCL/PF 2 MG/2 ML VIAL. ONE ×2 (07:48→09:50)
--- NOTE | 2018-11-09 07:59 | RAD ---
Portable chest, 11/09/2018: HISTORY: Weakness Comparison is made to a study from 10/24/2018. Heart is enlarged. There is calcific plaquing and tortuosity of the thoracic aorta. The pulmonary vascularity is normal. There are granulomatous calcifications in both lungs and the mediastinum. No acute infiltrate is seen. There is no evidence of pleural fluid. IMPRESSION: 1. Cardiomegaly and aortic atherosclerosis. 2. No acute abnormality is detected. Electronically signed by: Alejandro Nick MD (11/09/2018 7:56 AM) [facility]
[2018-11-09] MEDS ORDERED: HEPARIN for IV BOLUS 10,000 UNIT/10 ML VIAL. ONE (08:03)
[2018-11-09] MEDS ORDERED: diphenhydrAMINE 50 MG/ML VIAL ONE (08:28)
[2018-11-09] MEDS ORDERED: HYDROmorphone 2 MG/ML VIAL IV ONE (08:30)
[2018-11-09] MEDS ORDERED: IODIXANOL 320 MG/ML 100 ML VIAL. IART ONE (09:15)
[2018-11-09] MEDS ORDERED: LIDOCAINE WITH 8.4% SOD BICARB 3 ML DISP.SYRIN. IJ ONE (09:15)
[2018-11-09] MEDS ORDERED: CONTRAST GIVEN. MC PRN (09:15)
[2018-11-09] MEDS ORDERED: MIDAZOLAM HCL/PF 2 MG/2 ML VIAL. IV ONE (09:15)
[2018-11-09] MEDS ORDERED: HEPARIN for IV BOLUS 10,000 UNIT/10 ML VIAL. IV ONE (09:15)
[2018-11-09] MEDS ORDERED: diphenhydrAMINE 50 MG/ML VIAL IVP ONE (09:15)
[2018-11-09] MEDS ORDERED: IODIXANOL 320 MG/ML 50ML VIAL. IART ONE (09:15)
--- NOTE | 2018-11-09 09:15 | PDOC1 ---
History and Physical Date of Admission Date of Admission DATE: 11/09/18 TIME: 09:13 Identification/Chief Complaint Chief Complaint arm pain, weakness Source Source: Chart review, Patient History of Present Illness History of Present Illness Ms. Mckenna is a 88 year old with mult prior DVT, clot, vascular issues, presents with acute left arm pain and numbness prior known stenosis and thromposiss Vasc surg consulted, [facility], no chest pain, no Past Medical History Cardiovascular: CAD, HTN, Hyperlipidemia, Other Pulmonary: Pulmonary embolus CENTRAL NERVOUS SYSTEM: Other GI: No pertinent hx Heme/Onc: Anemia NOS Hepatobiliary: No pertinent hx Psych: No pertinent hx Rheumatologic: No pertinent hx Infectious disease: No pertinent hx Renal/: Chronic renal failure Endocrine: Diabetes Past Surgical History Past Surgical History: Other Family History Family History: Family History Unknown Social History Smoke: No ALCOHOL: none Drugs: None Current Problem List Problem List Problems Medical Problems: (1) AV graft malfunction Status: Acute Current Medications Current Medications Current Medications Fentanyl Citrate (Fentanyl 2ml Vial) 50 mcg 1X ONCE IV Last administered on at 03:35; Start 11/09/18 at 03:30; Stop 11/09/18 at 03:32; Status DC Fentanyl Citrate (Fentanyl 2ml Vial) 50 mcg PRN Q2HR PRN IV SEVERE PAIN; Start 11/09/18 at 05:45; Stop 11/10/18 at 05:44 Heparin Sodium/ Dextrose 500 ml @ 0 mls/hr CONT PRN IV SEE I/O RECORD Last administered on 11/09/18at 06:00; Start 11/09/18 at 05:45 Lorazepam (Ativan) 0.5 mg 1X ONCE IV Last administered on 11/09/18at 05:57; Start 11/09/18 at 06:00; Stop 11/09/18 at 06:01; Status DC Info (Anti-Coagulation Monitoring By Pharmacy) 1 each PRN DAILY PRN MC SEE COMMENTS Last administered on 11/09/18at 05:58; Start 11/09/18 at 05:45 Iodixanol (Visipaque 320) 100 ml STK-MED ONCE .ROUTE ; Start 11/09/18 at 07:15; Stop 11/09/18 at 07:16; Status DC Lidocaine/Sodium Bicarbonate (Buffered Lidocaine 1%) 3 ml STK-MED ONCE .ROUTE ; Start 11/09/18 at 07:15; Stop 11/09/18 at 07:16; Status DC Heparin Sodium/ Sodium Chloride 1,000 ml @ As Directed STK-MED ONCE .ROUTE ; Start 11/09/18 at 07:15; Stop 11/09/18 at 07:16; Status DC Iodixanol (Visipaque 320) 100 ml STK-MED ONCE .ROUTE ; Start 11/09/18 at 07:44; Stop 11/09/18 at 07:45; Status DC Iodixanol (Visipaque 320) 50 ml STK-MED ONCE .ROUTE ; Start 11/09/18 at 07:44; Stop 11/09/18 at 07:45; Status DC Iodixanol (Visipaque 320) 100 ml STK-MED ONCE .ROUTE ; Start 11/09/18 at 07:47; Stop 11/09/18 at 07:48; Status DC Midazolam HCl (Versed) 2 mg STK-MED ONCE .ROUTE ; Start 11/09/18 at 07:48; Stop 11/09/18 at 07:49; Status DC Fentanyl Citrate (Fentanyl 2ml Vial) 100 mcg STK-MED ONCE .ROUTE ; Start at 07:48; Stop 11/09/18 at 07:49; Status DC Heparin Sodium (Porcine) (Heparin Sodium) 10,000 unit STK-MED ONCE .ROUTE ; Start 11/09/18 at 08:03; Stop 11/09/18 at 08:04; Status DC Diphenhydramine HCl (Benadryl) 50 mg STK-MED ONCE .ROUTE ; Start 11/09/18 at 08: 28; Stop 11/09/18 at 08:29; Status DC Hydromorphone HCl (Dilaudid) 2 mg 1X ONCE IV ; Start 11/09/18 at 08:30; Stop at 08:31; Status DC Heparin Sodium/ Sodium Chloride 500 ml @ As Directed STK-MED ONCE .ROUTE ; Start 11/09/18 at 08:59; Stop 11/09/18 at 09:00; Status DC Iodixanol (Visipaque 320) 100 ml STK-MED ONCE .ROUTE ; Start 11/09/18 at 09:04; Stop 11/09/18 at 09:05; Status DC Heparin Sodium/ Sodium Chloride (HEPARIN for ARTERIAL LINE FLUSH) 1,000 unit 1X ONCE IART ; Start 11/09/18 at 09:15; Stop 11/09/18 at 09:16 Heparin Sodium/ Sodium Chloride (HEPARIN for ARTERIAL LINE FLUSH) 1,000 unit 1X ONCE IART ; Start 11/09/18 at 09:15; Stop 11/09/18 at 09:16 Lidocaine/Sodium Bicarbonate (Buffered Lidocaine 1%) 6 ml 1X ONCE IJ ; Start at 09:15; Stop 11/09/18 at 09:16 Midazolam HCl (Versed) 2 mg 1X ONCE IV ; Start 11/09/18 at 09:15; Stop at 09:16 Fentanyl Citrate (Fentanyl 2ml Vial) 100 mcg 1X ONCE IV ; Start 11/09/18 at 09: 15; Stop 11/09/18 at 09:16 Iodixanol (Visipaque 320) 100 ml 1X ONCE IART ; Start 11/09/18 at 09:15; Stop 11/09/18 at 09:16 Heparin Sodium (Porcine) (Heparin Sodium) 7,500 unit 1X ONCE IV ; Start at 09:15; Stop 11/09/18 at 09:16 Diphenhydramine HCl (Benadryl) 50 mg 1X ONCE IVP ; Start 11/09/18 at 09:15; Stop 11/09/18 at 09:16 Iodixanol (Visipaque 320) 50 ml 1X ONCE IART ; Start 11/09/18 at 09:15; Stop at 09:16 Info (CONTRAST GIVEN -- Rx MONITORING) 1 each PRN DAILY PRN MC SEE COMMENTS; Start 11/09/18 at 09:15; Stop 11/11/18 at 09:14 Active Scripts Active Proair Hfa Inhaler (Albuterol Sulfate) 8.5 Gm Hfa.aer.ad 1 Puff INH PRN Q6HRS PRN 14 Days Doxycycline Hyclate 100 Mg Tablet 100 Mg PO BID 7 Days Reported FENTANYL 25mcg/hr (Fentanyl) 1 Each Patch.td72 1 Patch TD Q72H Clopidogrel (Clopidogrel Bisulfate) 75 Mg Tablet 1 Tab PO DAILY Catapres-Tts 2 (Clonidine) 1 Each Patch.tdwk 1 Each TD WEEKLY Clonidine Hcl 0.2 Mg Tablet 0.2 Mg PO BID Dialyvite [place] D Tablet (Multivitamin, Min Cmb#25/Fa/D3) 1 Each Tablet 1 Each PO DAILY Renvela (Sevelamer Carbonate) 800 Mg Tablet 2 Tab PO TIDWMEALHC Sensipar (Cinacalcet Hcl) 30 Mg Tablet 1 Tab PO DAILYWSUP Calcium Acetate 667 Mg Tablet 1,334 Mg PO TIDWMEALS Lovastatin 10 Mg Tablet 10 Mg PO HS Losartan Potassium 100 Mg Tablet 100 Mg PO DAILY Amlodipine Besylate 10 Mg Tablet 10 Mg PO PRN DAILY PRN Ferrous Sulfate 325 Mg Tablet 1 Tab PO DAILY Lasix (Furosemide) 40 Mg Tablet 1 Tab PO DAILY Aspir 81 (Aspirin) 81 Mg Tablet.dr 1 Tab PO DAILY Allergies Allergies: Coded Allergies: No Known Drug Allergies (Unverified , 07/14/17) ROS General: No: Chills, Night Sweats, Fatigue, Malaise, Appetite, Other PSYCHOLOGICAL ROS: No: Anxiety, Behavioral Disorder, Concentration difficultie , Decreased libido, Depression, Disorientation, Hallucinations, Hostility, Irritablity, Memory difficulties, Mood Swings, Obsessive thoughts, Physical abuse, Sexual abuse, Sleep disturbances, Suicidal ideation, Other Eyes: No Blurry vision, No Decreased vision, No Double vision, No Dry eyes, No Excessive tearing, No Eye Pain, No Itchy Eyes, No Loss of vision, No Photophobia , No Scotomata, No Uses contacts, No Uses glasses, No Other HEENT: No: Heacaches, Visual Changes, Hearing change, Nasal congestion, Nasal discharge, Oral lesions, Sinus pain, Sore Throat, Epistaxis, Sneezing, Snoring, Tinnitus, Vertigo, Vocal changes, Other Respiratory: No: Cough, Hemoptysis, Orthopnea, Pleuritic Pain, Shortness of breath, SOB with excertion, Sputum Changes, Stridor, Tachypnea, Wheezing, Other Cardiovascular: No Chest Pain, No Palpitations, No Orthopnea, No Paroxysmal Noc. Dyspnea, No Edema, No Lt Headedness, No Other Gastrointestinal: No Nausea, No Vomiting, No Abdominal Pain, No Diarrhea, No Constipation, No Melena, No Hematochezia, No Other Genitourinary: No Dysuria, No Frequency, No Incontinence, No Hematuria, No Retention, No Discharge, No Urgency, No Pain, No Flank Pain, No Other, No , No , No , No , No , No , No Musculoskeletal: No Gait Disturbance, No Joint Pain, No Joint Stiffness, No Joint Swelling, No Muscle Pain, No Muscular Weakness, No Pain In:, No Swelling In:, No Other Neurological: No Behavorial Changes, No Bowel/Bladder ControlChng, No Confusion , No Dizziness, No Gait Disturbance, No Headaches, No Impaired Coord/balance, No Memory Loss, No Numbness/Tingling, No Seizures, No Speech Problems, No Tremors, No Visual Changes, No Weakness, No Other Skin: Yes Dry Skin; No Eczema, No Hair Changes, No Lumps, No Mole Changes, No Mottling, No Nail Changes, No Pruritus, No Rash, No Skin Lesion Changes, No Other, No Acne Physical Exam General: Alert, Oriented X3, Cooperative, No acute distress HEENT: EOMI, Mucous membr. moist/pink Lungs: Clear to auscultation, Normal air movement Heart: S1S2, no gallops, no murmurs Abdomen: Normal bowel sounds, Soft Extremities: No clubbing, No edema, Normal pulses Skin: No breakdown, No significant lesion Neuro: Normal speech, Normal tone, Cranial nerves 3-12 NL Psych/Mental Status: Mood NL Vitals Vitals Vital Signs Date Time Temp Pulse Resp B/P (MAP) Pulse Ox O2 Delivery O2 Flow Rate FiO2 11/09/18 06:45 97.6 86 18 137/53 (81) 93 Room Air 97.6 Labs Labs Laboratory Tests Test 11/09/18 03:15 White Blood Count 8.6 x10^3/uL (4.0-11.0) Red Blood Count 3.45 x10^6/uL (3.50-5.40) Hemoglobin 10.7 g/dL (12.0-15.5) Hematocrit 31.1 % (36.0-47.0) Mean Corpuscular Volume 90 fL (79-100) Mean Corpuscular Hemoglobin 31 pg (25-35) Mean Corpuscular Hemoglobin Concent 34 g/dL (31-37) Red Cell Distribution Width 16.3 % (11.5-14.5) Platelet Count 337 x10^3/uL (140-400) Neutrophils (%) (Auto) 76 % (31-73) Lymphocytes (%) (Auto) 11 % (24-48) Monocytes (%) (Auto) 11 % (0-9) Eosinophils (%) (Auto) 1 % (0-3) Basophils (%) (Auto) 1 % (0-3) Neutrophils # (Auto) 6.5 x10^3uL (1.8-7.7) Lymphocytes # (Auto) 0.9 x10^3/uL (1.0-4.8) Monocytes # (Auto) 1.0 x10^3/uL (0.0-1.1) Eosinophils # (Auto) 0.1 x10^3/uL (0.0-0.7) Basophils # (Auto) 0.1 x10^3/uL (0.0-0.2) Segmented Neutrophils % 75 % (35-66) Lymphocytes % 12 % (24-48) Monocytes % 10 % (0-10) Eosinophils % 2 % (0-5) Basophils % 1 % (0-3) Platelet Estimate Adequate (ADEQUATE) Hypochromasia Slight Anisocytosis Slight Spherocytes Occ Prothrombin Time 14.2 SEC (11.7-14.0) Prothromb Time International Ratio 1.1 (0.8-1.1) Sodium Level 143 mmol/L (136-145) Potassium Level 4.0 mmol/L (3.5-5.1) Chloride Level 99 mmol/L (98-107) Carbon Dioxide Level 32 mmol/L (21-32) Anion Gap 12 (6-14) Blood Urea Nitrogen 21 mg/dL (7-20) Creatinine 6.4 mg/dL (0.6-1.0) Estimated GFR (Cockcroft-Gault) 7.5 BUN/Creatinine Ratio 3 (6-20) Glucose Level 132 mg/dL (70-99) Calcium Level 8.7 mg/dL (8.5-10.1) Total Bilirubin 0.4 mg/dL (0.2-1.0) Aspartate Amino Transf (AST/SGOT) 27 U/L (15-37) Alanine Aminotransferase (ALT/SGPT) 19 U/L (14-59) Alkaline Phosphatase 124 U/L (46-116) Troponin I Quantitative 0.066 ng/mL (0.000-0.055) Total Protein 7.5 g/dL (6.4-8.2) Albumin 3.0 g/dL (3.4-5.0) Albumin/Globulin Ratio 0.7 (1.0-1.7) Laboratory Tests Test 11/09/18 03:15 White Blood Count 8.6 x10^3/uL (4.0-11.0) Red Blood Count 3.45 x10^6/uL (3.50-5.40) Hemoglobin 10.7 g/dL (12.0-15.5) Hematocrit 31.1 % (36.0-47.0) Mean Corpuscular Volume 90 fL (79-100) Mean Corpuscular Hemoglobin 31 pg (25-35) Mean Corpuscular Hemoglobin Concent 34 g/dL (31-37) Red Cell Distribution Width 16.3 % (11.5-14.5) Platelet Count 337 x10^3/uL (140-400) Neutrophils (%) (Auto) 76 % (31-73) Lymphocytes (%) (Auto) 11 % (24-48) Monocytes (%) (Auto) 11 % (0-9) Eosinophils (%) (Auto) 1 % (0-3) Basophils (%) (Auto) 1 % (0-3) Neutrophils # (Auto) 6.5 x10^3uL (1.8-7.7) Lymphocytes # (Auto) 0.9 x10^3/uL (1.0-4.8) Monocytes # (Auto) 1.0 x10^3/uL (0.0-1.1) Eosinophils # (Auto) 0.1 x10^3/uL (0.0-0.7) Basophils # (Auto) 0.1 x10^3/uL (0.0-0.2) Segmented Neutrophils % 75 % (35-66) Lymphocytes % 12 % (24-48) Monocytes % 10 % (0-10) Eosinophils % 2 % (0-5) Basophils % 1 % (0-3) Platelet Estimate Adequate (ADEQUATE) Hypochromasia Slight Anisocytosis Slight Spherocytes Occ Prothrombin Time 14.2 SEC (11.7-14.0) Prothromb Time International Ratio 1.1 (0.8-1.1) Sodium Level 143 mmol/L (136-145) Potassium Level 4.0 mmol/L (3.5-5.1) Chloride Level 99 mmol/L (98-107) Carbon Dioxide Level 32 mmol/L (21-32) Anion Gap 12 (6-14) Blood Urea Nitrogen 21 mg/dL (7-20) Creatinine 6.4 mg/dL (0.6-1.0) Estimated GFR (Cockcroft-Gault) 7.5 BUN/Creatinine Ratio 3 (6-20) Glucose Level 132 mg/dL (70-99) Calcium Level 8.7 mg/dL (8.5-10.1) Total Bilirubin 0.4 mg/dL (0.2-1.0) Aspartate Amino Transf (AST/SGOT) 27 U/L (15-37) Alanine Aminotransferase (ALT/SGPT) 19 U/L (14-59) Alkaline Phosphatase 124 U/L (46-116) Troponin I Quantitative 0.066 ng/mL (0.000-0.055) Total Protein 7.5 g/dL (6.4-8.2) Albumin 3.0 g/dL (3.4-5.0) Albumin/Globulin Ratio 0.7 (1.0-1.7) VTE Prophylaxis Ordered VTE Prophylaxis Devices: Yes VTE Pharmacological Prophylaxi: Yes Assessment/Plan Assessment/Plan limb ischemia, acute - to OR This AM ESRD weakness and debility HERRERA RODRIGUEZ MD Nov 09, 2018 09:15
[2018-11-09 10:56] VITALS: BP 152/67
[2018-11-09 11:38] VITALS: BP 113/77
--- NOTE | 2018-11-09 12:01 | PDOC ---
MODERATE SEDATION ASSESSMENT RISKS/ALTERNATIVES Risks/Alternatives Risks and alternatives of this type of sedation and procedure discussed with: RISK/ALTERNATIVES: Patient H & P ON CHART H & P H & P on chart and reviewed for co-morbid conditions and appropriate labs. H&P ON CHART: Yes STATUS PREG STATUS ASSESSED: Yes MEDS/ALLERGIES REVIEWED Meds/Allergies Reviewed Medications and Allergies including time and route of recently administered narcotics and sedatives. MEDS/ALLERGIES REVIEWED: Yes ASA RATING ASA RATING: II AIRWAY ASSESSMENT Airway Assessment Airway patency, oral function limitations, presence of caps, crowns, dentures, partials, and ability to extend neck assessed. AIRWAY ASSESSMENT: Yes MALLAMPATI SCORE MALLAMPATI SCORE: II PRE-SEDATION ASSESSMENT PRE-SEDATION ASSESSMENT: Yes PRIYANK BURDEN MD Nov 09, 2018 12:01
--- NOTE | 2018-11-09 12:08 | PDOC ---
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 This was treated to facilitate access to the aortic arch. Patient has a bovine arch with the origin of the left subclavian not identified. Left arm graft puncture x 2 revealed patency of the graft with poor inflow from left subclavian vein occlusion at the thoracic inlet with occlusive segment spanning the vertebral and dickson vessels. There is slow runoff to the distal brachial artery, ulnar artery and interroseous artery to the wrist, with runoff to the left radial artery to the mid forearm. Attempts to access the left vertebral artery retrograde were unsuccessful. Right brachiocephalic arteriogram shows patent right vert to basilar with retrograde flow to the horizontal left vert, but no flow within the vertical segment of the left vert. Though not well seen , persistent patency of the horizontal segment of the left vert is likely physiologic to enable perfusion to the left PICA. Covered self-expanding stent was than possitioned accross the occlusion and dilated to 7mm resulting is roman catholic of flow with excellent angiographic appearance and wide patency of the shunt. There is improved antegrade flow in the brachial artery distal to the graft as well. PRIYANK BURDEN MD Nov 09, 2018 12:08
[2018-11-09] MEDS ORDERED: CLOPIDOGREL BISULFATE 75 MG TABLET PO ONE (12:15)
--- NOTE | 2018-11-09 12:49 | RAD ---
Procedure: Diagnostic right pelvic angiogram, diagnostic aortogram, diagnostic left upper extremity arteriogram, diagnostic shuntogram, diagnostic cerebral arteriogram, stenting and drug coated balloon angioplasty of the right external iliac artery, and stenting of the left subclavian artery. 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 Sedation: Conscious sedation was administered with a total intraprocedural [id number] time of 157 minutes. The patient was monitored by a qualified independent observer throughout the time of sedation. Please refer to the medical record for exact doses of medications utilized to achieve moderate sedation. Antibiotics: None Exposure: Kerma-Area Product: 644 Gycm2 Contrast: 220 cc of Visipaque 320 contrast media Sterility: All elements of maximal sterile barrier technique including the use of a cap, mask, sterile gown, sterile gloves, large sterile sheet, appropriate hand hygiene, and 2% chlorhexidine for cutaneous antisepsis (or acceptable alternative antiseptic per current guidelines) were followed for this procedure. If ultrasound guidance was utilized, sterile ultrasound techniques were followed including use of a sterile probe cover. Consent: The procedure was explained in its entirety to the patient or the patients designated compliance representative by a member of the treatment team, including a discussion of the risks, benefits and commonly accepted alternatives to the procedure, as well as the expected consequences of no therapy whatsoever. Discussion of the risks included, but was not limited to, those that are most frequent and those that are rare but possibly severe or life-threatening, as well as the possibility of unforeseen complications. Technique and Findings: Following informed consent, the patient was prepped and draped in usual sterile fashion. Ultrasound interrogation of the right groin revealed multiple bulky calcified atherosclerotic plaque throughout the common femoral artery. 1% lidocaine was used to achieve local anesthesia. Under ultrasound guidance, a 21-gauge micropuncture needle was advanced to a portion of the anterior common femoral artery wall which was noncalcified. The needle was exchanged over wire for a 5 Cymraes sheath. Attempts to advance a wire into the aorta were unsuccessful. Contrast angiography was performed demonstrating a high-grade short segment dense a calcified stenosis of the external iliac artery just beyond the origin of the patent internal iliac artery. The patient was given 5000 units of heparin intravenously. An angled catheter and Glidewire were used to cross this stenosis. The short sheath was exchanged for a long 6 Cymraes destination sheath, and a 6 mm x 39 mm balloon expandable stent was deployed across the stenosis and related to maximal profile to achieve a diameter of roughly 6.4 mm. This was postdilated using a 6 mm the CBD balloon inflated to maximum profile for total 3 minutes. Completion arteriogram demonstrated rastafarian of brisk flow through the area with minimal residual stenosis and preserved patency of the internal iliac artery. The destination sheath was advanced into the descending thoracic aorta and a flush catheter was advanced into the ascending aorta and contrast aortography was performed. The patient has a bovine arch. There is extensive calcified atherosclerosis in all distributions. The origin of the left subclavian artery is suggested but not well seen. No left vertebral artery is identified. An angled catheter was then used in conjunction with a wire to probe for the origin of the left subclavian artery, however this was unsuccessful. The catheter was then removed and the long 6 Cymraes sheath was exchanged for a short 6 Cymraes sheath which was affixed to the skin. Attention was then turned to the left arm. The left arm was prepped and draped in the usual sterile fashion. Ultrasound interrogation of the AV graft confirmed persistent patency with markedly slow flow. 1% lidocaine was used to achieve local anesthesia over the venous limb of the graft. Under ultrasound guidance, a 21-gauge micropuncture was used to gain access to the graft in an antegrade fashion. Hardcopy ultrasound image was recorded. Contrast was then injected confirming patency of the venous outflow the graft, patency of the venous anastomosis, and patency of the central veins. A second area of the graft was then anesthetized with 1% lidocaine. Once again under ultrasound guidance, a 21-gauge micropuncture was used to gain access to the graft, this time in a retrograde fashion. Hardcopy ultrasound image was recorded. An angled catheter was advanced over wire into the wainwright subclavian artery, and contrast angiography was performed. There is occlusion of the subclavian artery as it crosses the thoracic inlet. Axillary artery, brachial artery, and arterial anastomoses are widely patent. The angled catheter was then advanced across the arterial anastomosis and directed peripherally within the brachial artery. Contrast angiography was performed. There is extensive multifocal atherosclerosis, with several tandem moderate stenoses in multiple distributions. Numerous, the runoff brachial artery is widely patent and provides in-line flow to the radial, ulnar, and interosseous arteries. The ulnar and interosseous arteries are seen to flow to the level of the wrist, where there is reconstitution of the radial artery via small collaterals. The wainwright radial artery itself tapers to occlusion of the mid forearm. No definite embolic occlusions are evident. An angled catheter was then advanced into the subclavian stenosis and used to probe for the left achieve artery which was not evident. Angiograms on both sides of the occlusion failed to reveal any vestige of the left vertebral artery. Access into the thyrocervical trunk was achieved, demonstrating patency with retrograde flow in this vessel. Access was also achieved into the superior intercostal artery demonstrating patency of this vessel with antegrade flow. Access into the left internal mammary artery was also achieved demonstrating patency of this vessel distal to its origin, with occlusion at its origin. The angled catheter was then exchanged for per square catheter which was advanced into the descending thoracic aorta and used to select the brachiocephalic artery. Power injection angiography was then performed with attention to the cerebral circulation. The right vertebral artery is seen to be patent with in-line flow into the basilar artery. There is faint retrograde flow seen within the high left vertebral artery to the level of the termination of its transverse segment. No retrograde flow is seen within the vertical cervical segment of the left vertebral artery. Left PICA is not evident, but usually arises from the perfused horizontal segment. The right middle cerebral and bilateral anterior cerebral arteries are perfused via the right common carotid artery. The patient was then given heparin intravenously once again, and the short sheath was exchanged for 7 Cymraes sheath which was advanced to the axillary artery. An 8 mm x 15 mm covered viable on stent was then advanced over the wire and positioned across the area of subclavian occlusion. Given the absence of flow within the vertebral cervical segment of the left vertebral artery, vessels access was felt to be safe. Additionally, given the soft nature of the thrombotic occlusion, as well as the anatomic constraints of the thoracic inlet, a covered stent was chosen to successfully exclude embolization and provide long-term durability. Once optimally position, the stent was deployed across the area of occlusion, then postdilated using a 7 mm x 40 mm and post balloon. Completion angiogram demonstrated rastafarian of brisk flow through the subclavian artery which continues through the graft circuit unabated. There is also brisk arterial flow within the distal brachial artery. The catheter was then removed and pursestring sutures were applied to both puncture sites involving the graft. A minx device was used in the right groin to achieve hemostasis. Complications: No Impression: 1. 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 This was successfully excluded with covered stent after interrogation of the cerebral circulation revealed absence of perfusion within the vertical cervical left vertebral artery. 2. 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 The distal radial artery is reconstituted by collaterals from the interosseous artery. 3. 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 Consequently, this was treated with primary stent placement and drug coated balloon angioplasty with excellent angiographic result. Recommendations for this patient include lifelong dual antiplatelet therapy, as well as aggressive vascular surveillance. Given the anatomic constraints of the subclavian artery stent, the stent may be prone to failure. Consequently, the patient will be referred to vascular surgery for consideration of elective carotid subclavian bypass.
[2018-11-09] MEDS ORDERED: amLODIPine BESYLATE 10 MG TABLET PO PRN (14:30)
[2018-11-09] MEDS ORDERED: ALBUTEROL SULFATE 2.5 MG/3 ML NEBU. INH PRN (14:30)
[2018-11-09 14:39] VITALS: BP 126/57
--- NOTE | 2018-11-09 14:47 | PDOC2 ---
CONSULT Date of Consult Date of Consult DATE: 11/09/18 TIME: 14:22 History of Present Illness Reason for Visit: Pt is a pleasant 88 year old female with history of CKD, CAD, HTN, PAD, Hyperlipidemia, DVTs, who presented today with a cold left hand. She underwent extensive vascular intervention today as listed below. I was unable to obtain a history at all from the patient as she was still strongly sedated from procedure earlier today. Pt usually does dialysis MWF, successful dialysis yesterday. Past Medical History Cardiovascular: CAD, HTN, Hyperlipidemia, Other Pulmonary: Pulmonary embolus CENTRAL NERVOUS SYSTEM: Other GI: No pertinent hx Heme/Onc: Anemia NOS Hepatobiliary: No pertinent hx Psych: No pertinent hx Rheumatologic: No pertinent hx Infectious disease: No pertinent hx Renal/: Chronic renal failure Endocrine: Diabetes Past Surgical History Past Surgical History: Other Family History Family History: Family History Unknown Social History ALCOHOL: none Drugs: None Lives: with Family Current Problem List Problem List Problems Medical Problems: (1) AV graft malfunction Status: Acute Current Medications Current Medications Current Medications Fentanyl Citrate (Fentanyl 2ml Vial) 50 mcg 1X ONCE IV Last administered on at 03:35; Start 11/09/18 at 03:30; Stop 11/09/18 at 03:32; Status DC Fentanyl Citrate (Fentanyl 2ml Vial) 50 mcg PRN Q2HR PRN IV SEVERE PAIN; Start 11/09/18 at 05:45; Stop 11/10/18 at 05:44 Heparin Sodium/ Dextrose 500 ml @ 0 mls/hr CONT PRN IV SEE I/O RECORD Last administered on 11/09/18at 06:00; Start 11/09/18 at 05:45; Stop 11/09/18 at 12:40 ; Status DC Lorazepam (Ativan) 0.5 mg 1X ONCE IV Last administered on 11/09/18at 05:57; Start 11/09/18 at 06:00; Stop 11/09/18 at 06:01; Status DC Info (Anti-Coagulation Monitoring By Pharmacy) 1 each PRN DAILY PRN MC SEE COMMENTS Last administered on 11/09/18at 05:58; Start 11/09/18 at 05:45; Stop at 12:41; Status DC Iodixanol (Visipaque 320) 100 ml STK-MED ONCE .ROUTE ; Start 11/09/18 at 07:15; Stop 11/09/18 at 07:16; Status DC Lidocaine/Sodium Bicarbonate (Buffered Lidocaine 1%) 3 ml STK-MED ONCE .ROUTE ; Start 11/09/18 at 07:15; Stop 11/09/18 at 07:16; Status DC Heparin Sodium/ Sodium Chloride 1,000 ml @ As Directed STK-MED ONCE .ROUTE ; Start 11/09/18 at 07:15; Stop 11/09/18 at 07:16; Status DC Iodixanol (Visipaque 320) 100 ml STK-MED ONCE .ROUTE ; Start 11/09/18 at 07:44; Stop 11/09/18 at 07:45; Status DC Iodixanol (Visipaque 320) 50 ml STK-MED ONCE .ROUTE ; Start 11/09/18 at 07:44; Stop 11/09/18 at 07:45; Status DC Iodixanol (Visipaque 320) 100 ml STK-MED ONCE .ROUTE ; Start 11/09/18 at 07:47; Stop 11/09/18 at 07:48; Status DC Midazolam HCl (Versed) 2 mg STK-MED ONCE .ROUTE ; Start 11/09/18 at 07:48; Stop 11/09/18 at 07:49; Status DC Fentanyl Citrate (Fentanyl 2ml Vial) 100 mcg STK-MED ONCE .ROUTE ; Start at 07:48; Stop 11/09/18 at 07:49; Status DC Heparin Sodium (Porcine) (Heparin Sodium) 10,000 unit STK-MED ONCE .ROUTE ; Start 11/09/18 at 08:03; Stop 11/09/18 at 08:04; Status DC Diphenhydramine HCl (Benadryl) 50 mg STK-MED ONCE .ROUTE ; Start 11/09/18 at 08: 28; Stop 11/09/18 at 08:29; Status DC Hydromorphone HCl (Dilaudid) 2 mg 1X ONCE IV Last administered on 11/09/18at 10 :43; Start 11/09/18 at 08:30; Stop 11/09/18 at 08:31; Status DC Heparin Sodium/ Sodium Chloride 500 ml @ As Directed STK-MED ONCE .ROUTE ; Start 11/09/18 at 08:59; Stop 11/09/18 at 09:00; Status DC Iodixanol (Visipaque 320) 100 ml STK-MED ONCE .ROUTE ; Start 11/09/18 at 09:04; Stop 11/09/18 at 09:05; Status DC Heparin Sodium/ Sodium Chloride (HEPARIN for ARTERIAL LINE FLUSH) 1,000 unit 1X ONCE IART Last administered on 11/09/18 10:40; Start 11/09/18 at 09:15; Stop 11/09/18 at 09:16; Status DC Heparin Sodium/ Sodium Chloride (HEPARIN for ARTERIAL LINE FLUSH) 1,000 unit 1X ONCE IART Last administered on 11/09/18 10:40; Start 11/09/18 at 09:15; Stop 11/09/18 at 09:16; Status DC Lidocaine/Sodium Bicarbonate (Buffered Lidocaine 1%) 6 ml 1X ONCE IJ Last administered on 11/09/18 10:42; Start 11/09/18 at 09:15; Stop 11/09/18 at 09:16 ; Status DC Midazolam HCl (Versed) 2 mg 1X ONCE IV Last administered on 11/09/18 10:43; Start 11/09/18 at 09:15; Stop 11/09/18 at 09:16; Status DC Fentanyl Citrate (Fentanyl 2ml Vial) 100 mcg 1X ONCE IV Last administered on 10:44; Start 11/09/18 at 09:15; Stop 11/09/18 at 09:16; Status DC Iodixanol (Visipaque 320) 100 ml 1X ONCE IART Last administered on 11/09/18 10:44; Start 11/09/18 at 09:15; Stop 11/09/18 at 09:16; Status DC Heparin Sodium (Porcine) (Heparin Sodium) 7,500 unit 1X ONCE IV Last administered on 11/09/18 10:47; Start 11/09/18 at 09:15; Stop 11/09/18 at 09:16 ; Status DC Diphenhydramine HCl (Benadryl) 50 mg 1X ONCE IVP Last administered on 10:44; Start 11/09/18 at 09:15; Stop 11/09/18 at 09:16; Status DC Iodixanol (Visipaque 320) 50 ml 1X ONCE IART Last administered on 2/19/19at 10 :45; Start 11/09/18 at 09:15; Stop 11/09/18 at 09:16; Status DC Info (CONTRAST GIVEN -- Rx MONITORING) 1 each PRN DAILY PRN MC SEE COMMENTS; Start 11/09/18 at 09:15; Stop 11/11/18 at 09:14 Heparin Sodium/ Sodium Chloride (HEPARIN for ARTERIAL LINE FLUSH) 1,000 unit 1X ONCE IV Last administered on 11/09/18at 10:41; Start 11/09/18 at 09:30; Stop 11/09/18 at 09:31; Status DC Heparin Sodium/ Sodium Chloride (HEPARIN for ARTERIAL LINE FLUSH) 1,000 unit 1X ONCE IV Last administered on 11/09/18at 10:42; Start 11/09/18 at 09:30; Stop 11/09/18 at 09:31; Status DC Iodixanol (Visipaque 320) 100 ml STK-MED ONCE .ROUTE ; Start 11/09/18 at 09:41; Stop 11/09/18 at 09:42; Status DC Midazolam HCl (Versed) 2 mg STK-MED ONCE .ROUTE ; Start 11/09/18 at 09:50; Stop 11/09/18 at 09:51; Status DC Heparin Sodium/ Sodium Chloride 500 ml @ As Directed STK-MED ONCE .ROUTE ; Start 11/09/18 at 09:56; Stop 11/09/18 at 09:57; Status DC Iodixanol (Visipaque 320) 50 ml STK-MED ONCE .ROUTE ; Start 11/09/18 at 10:00; Stop 11/09/18 at 10:01; Status DC Clopidogrel Bisulfate (Plavix) 300 mg 1X ONCE PO ; Start 11/09/18 at 12:15; Stop 11/09/18 at 12:16; Status DC Clopidogrel Bisulfate (Plavix) 75 mg 1X ONCE PO ; Start 11/10/18 at 08:00; Stop 11/10/18 at 08:01 Active Scripts Active Proair Hfa Inhaler (Albuterol Sulfate) 8.5 Gm Hfa.aer.ad 1 Puff INH PRN Q6HRS PRN 14 Days Doxycycline Hyclate 100 Mg Tablet 100 Mg PO BID 7 Days Reported FENTANYL 25mcg/hr (Fentanyl) 1 Each Patch.td72 1 Patch TD Q72H Clopidogrel (Clopidogrel Bisulfate) 75 Mg Tablet 1 Tab PO DAILY Catapres-Tts 2 (Clonidine) 1 Each Patch.tdwk 1 Each TD WEEKLY Clonidine Hcl 0.2 Mg Tablet 0.2 Mg PO BID Dialyvite [place] D Tablet (Multivitamin, Min Cmb#25/Fa/D3) 1 Each Tablet 1 Each PO DAILY Renvela (Sevelamer Carbonate) 800 Mg Tablet 2 Tab PO TIDWMEALHC Sensipar (Cinacalcet Hcl) 30 Mg Tablet 1 Tab PO DAILYWSUP Calcium Acetate 667 Mg Tablet 1,334 Mg PO TIDWMEALS Lovastatin 10 Mg Tablet 10 Mg PO HS Losartan Potassium 100 Mg Tablet 100 Mg PO DAILY Amlodipine Besylate 10 Mg Tablet 10 Mg PO PRN DAILY PRN Ferrous Sulfate 325 Mg Tablet 1 Tab PO DAILY Lasix (Furosemide) 40 Mg Tablet 1 Tab PO DAILY Aspir 81 (Aspirin) 81 Mg Tablet.dr 1 Tab PO DAILY Allergies Allergies: Coded Allergies: No Known Drug Allergies (Unverified , 07/14/17) ROS Review of System Unable to obtain, pt sedated from procedure Physical Exam Physical Exam Arousable, but non cooperative, sedated from procedure Left hand warm, good cap refill. Doppler signal present to left radial, ulnar and palmar arch. Dressings clean, dry and intact. Right hand warm, good radial pulse. Right foot cool to touch, monophasic doppler signals to DP and PT. Vitals VITALS Vital Signs Date Time Temp Pulse Resp B/P (MAP) Pulse Ox O2 Delivery O2 Flow Rate FiO2 11/09/18 11:38 97.6 82 113/77 (89) 100 Nasal Cannula 2.0 97.6 11/09/18 10:56 20 Labs Labs Laboratory Tests Test 11/09/18 03:15 White Blood Count 8.6 x10^3/uL (4.0-11.0) Red Blood Count 3.45 x10^6/uL (3.50-5.40) Hemoglobin 10.7 g/dL (12.0-15.5) Hematocrit 31.1 % (36.0-47.0) Mean Corpuscular Volume 90 fL (79-100) Mean Corpuscular Hemoglobin 31 pg (25-35) Mean Corpuscular Hemoglobin Concent 34 g/dL (31-37) Red Cell Distribution Width 16.3 % (11.5-14.5) Platelet Count 337 x10^3/uL (140-400) Neutrophils (%) (Auto) 76 % (31-73) Lymphocytes (%) (Auto) 11 % (24-48) Monocytes (%) (Auto) 11 % (0-9) Eosinophils (%) (Auto) 1 % (0-3) Basophils (%) (Auto) 1 % (0-3) Neutrophils # (Auto) 6.5 x10^3uL (1.8-7.7) Lymphocytes # (Auto) 0.9 x10^3/uL (1.0-4.8) Monocytes # (Auto) 1.0 x10^3/uL (0.0-1.1) Eosinophils # (Auto) 0.1 x10^3/uL (0.0-0.7) Basophils # (Auto) 0.1 x10^3/uL (0.0-0.2) Segmented Neutrophils % 75 % (35-66) Lymphocytes % 12 % (24-48) Monocytes % 10 % (0-10) Eosinophils % 2 % (0-5) Basophils % 1 % (0-3) Platelet Estimate Adequate (ADEQUATE) Hypochromasia Slight Anisocytosis Slight Spherocytes Occ Prothrombin Time 14.2 SEC (11.7-14.0) Prothromb Time International Ratio 1.1 (0.8-1.1) Sodium Level 143 mmol/L (136-145) Potassium Level 4.0 mmol/L (3.5-5.1) Chloride Level 99 mmol/L (98-107) Carbon Dioxide Level 32 mmol/L (21-32) Anion Gap 12 (6-14) Blood Urea Nitrogen 21 mg/dL (7-20) Creatinine 6.4 mg/dL (0.6-1.0) Estimated GFR (Cockcroft-Gault) 7.5 BUN/Creatinine Ratio 3 (6-20) Glucose Level 132 mg/dL (70-99) Calcium Level 8.7 mg/dL (8.5-10.1) Total Bilirubin 0.4 mg/dL (0.2-1.0) Aspartate Amino Transf (AST/SGOT) 27 U/L (15-37) Alanine Aminotransferase (ALT/SGPT) 19 U/L (14-59) Alkaline Phosphatase 124 U/L (46-116) Troponin I Quantitative 0.066 ng/mL (0.000-0.055) Total Protein 7.5 g/dL (6.4-8.2) Albumin 3.0 g/dL (3.4-5.0) Albumin/Globulin Ratio 0.7 (1.0-1.7) Laboratory Tests Test 11/09/18 03:15 White Blood Count 8.6 x10^3/uL (4.0-11.0) Red Blood Count 3.45 x10^6/uL (3.50-5.40) Hemoglobin 10.7 g/dL (12.0-15.5) Hematocrit 31.1 % (36.0-47.0) Mean Corpuscular Volume 90 fL (79-100) Mean Corpuscular Hemoglobin 31 pg (25-35) Mean Corpuscular Hemoglobin Concent 34 g/dL (31-37) Red Cell Distribution Width 16.3 % (11.5-14.5) Platelet Count 337 x10^3/uL (140-400) Neutrophils (%) (Auto) 76 % (31-73) Lymphocytes (%) (Auto) 11 % (24-48) Monocytes (%) (Auto) 11 % (0-9) Eosinophils (%) (Auto) 1 % (0-3) Basophils (%) (Auto) 1 % (0-3) Neutrophils # (Auto) 6.5 x10^3uL (1.8-7.7) Lymphocytes # (Auto) 0.9 x10^3/uL (1.0-4.8) Monocytes # (Auto) 1.0 x10^3/uL (0.0-1.1) Eosinophils # (Auto) 0.1 x10^3/uL (0.0-0.7) Basophils # (Auto) 0.1 x10^3/uL (0.0-0.2) Segmented Neutrophils % 75 % (35-66) Lymphocytes % 12 % (24-48) Monocytes % 10 % (0-10) Eosinophils % 2 % (0-5) Basophils % 1 % (0-3) Platelet Estimate Adequate (ADEQUATE) Hypochromasia Slight Anisocytosis Slight Spherocytes Occ Prothrombin Time 14.2 SEC (11.7-14.0) Prothromb Time International Ratio 1.1 (0.8-1.1) Sodium Level 143 mmol/L (136-145) Potassium Level 4.0 mmol/L (3.5-5.1) Chloride Level 99 mmol/L (98-107) Carbon Dioxide Level 32 mmol/L (21-32) Anion Gap 12 (6-14) Blood Urea Nitrogen 21 mg/dL (7-20) Creatinine 6.4 mg/dL (0.6-1.0) Estimated GFR (Cockcroft-Gault) 7.5 BUN/Creatinine Ratio 3 (6-20) Glucose Level 132 mg/dL (70-99) Calcium Level 8.7 mg/dL (8.5-10.1) Total Bilirubin 0.4 mg/dL (0.2-1.0) Aspartate Amino Transf (AST/SGOT) 27 U/L (15-37) Alanine Aminotransferase (ALT/SGPT) 19 U/L (14-59) Alkaline Phosphatase 124 U/L (46-116) Troponin I Quantitative 0.066 ng/mL (0.000-0.055) Total Protein 7.5 g/dL (6.4-8.2) Albumin 3.0 g/dL (3.4-5.0) Albumin/Globulin Ratio 0.7 (1.0-1.7) Images Images Diagnostics reviewed: Left arm arterial study: IMPRESSION: 1. Left forearm graft is thrombosed. 2. AV graft within the upper arm appears patent with slow flow within and monophasic waveforms with blunted appearance. Region such as narrowing is possible given this finding. Procedure: Diagnostic right pelvic angiogram, diagnostic aortogram, diagnostic left upper extremity arteriogram, diagnostic shuntogram, diagnostic cerebral arteriogram, stenting and drug coated balloon angioplasty of the right external iliac artery, and stenting of the left subclavian artery. Impression: 1. 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 This was successfully excluded with covered stent after interrogation of the cerebral circulation revealed absence of perfusion within the vertical cervical left vertebral artery. 2. Moderate multifocal disease involving the kaibab arteries of the left forearm, with patency of the ulnar and interosseous arteries to the wrist, and tapered occlusion of the radial artery at the mid forearm. The distal radial artery is reconstituted by collaterals from the interosseous artery. 3. 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 Consequently, this was treated with primary stent placement and drug coated balloon angioplasty with excellent angiographic result. Assessment/Plan Assessment/Plan Ischemic hand, s/p left subclavian artery stent today - pt hand warm upon exam, doppler signals present to left radial, ulnar and palmar arch. Stable. Unable to assess motor/sensory function due to patients sedation. Continue Plavix. 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 Stable. CKD, on dialysis - Left arm AV graft appears thrombosed, pt will need to get temp cath placement. She is on MWF dialysis schedule. Vascular surgeon will also see patient. Thank you for consult. EARNEST HAWKINS Nov 09, 2018 14:47
[2018-11-09] MEDS: FOLIC/VIT B COMP W-C (RENAL) TABLET. PO SCH (15:00)
[2018-11-09] MEDS: fentaNYL 25MCG/HR PATCH 1 PATCH PATCH.TD72 TD SCH (15:00)
[2018-11-09] MEDS: FERROUS SULFATE 325 MG TABLET. PO SCH (15:00)
--- NOTE | 2018-11-09 15:33 | NUR ---
LATA following up with discharge planning. LATA confirmed with Briseyda, at [facility], ; fax [phone] pt dialyzes at facility on , , at 0615. LATA spoke with palliative care and was informed pt was scheduled to be admitted to services today. No PT/OT orders at this time. LATA will continue to follow pt to evaluate dc needs. EPHRAIM ALEGRE.
[2018-11-09] MEDS: SEVELAMER CARBONATE 800 MG TABLET. PO SCH ×2 (17:00→21:00)
[2018-11-09] MEDS: CALCIUM ACETATE 667 MG CAPSULE PO SCH (17:00)
[2018-11-09] MEDS: CINACALCET HCL 30 MG TABLET PO SCH (17:00)
[2018-11-09 19:00] VITALS: BP 114/49
[2018-11-09] MEDS ORDERED: cloNIDine HCL 0.2 MG TABLET PO SCH (21:00)
[2018-11-09] MEDS: ATORVASTATIN CALCIUM 10 MG TABLET. PO SCH (21:49)
[2018-11-09] MEDS: FUROSEMIDE 40 MG TABLET. PO SCH (21:49)
[2018-11-09] MEDS: LOSARTAN POTASSIUM 50 MG TABLET. PO SCH (21:49)
[2018-11-09 23:00] VITALS: BP 113/46
[2018-11-10 03:00] VITALS: BP 111/42
[2018-11-10 07:00] VITALS: BP 112/49
[2018-11-10] MEDS ORDERED: CLOPIDOGREL BISULFATE 75 MG TABLET PO ONE (08:00)
[2018-11-10] MEDS: CALCIUM ACETATE 667 MG CAPSULE PO SCH ×3 (08:00→16:28)
[2018-11-10] MEDS: SEVELAMER CARBONATE 800 MG TABLET. PO SCH ×4 (08:00→20:42)
[2018-11-10] MEDS ORDERED: cloNIDine TTS-2 1 PATCH PATCH TD SCH (09:00)
[2018-11-10] MEDS: FOLIC/VIT B COMP W-C (RENAL) TABLET. PO SCH (09:43)
[2018-11-10] MEDS: FERROUS SULFATE 325 MG TABLET. PO SCH (09:44)
--- NOTE | 2018-11-10 09:44 | PDOC ---
Provider Note Provider Note patient reports no pain in the left hand VSS awake and alert left arm warm, no swelling, doppler radial/ulnar pulse, intact motor and sensory function in the left hand LEs with no swelling, warm with no tissue breakdown A/P s/p left subclavian artery stenting with improved circulation, patent upper arm AV access - ok to use the left arm for dialysis - no surgical intervention needed, call with further questions RAFFI NAILS MD Nov 10, 2018 09:44
[2018-11-10] MEDS ORDERED: DIALYSIS PATIENT. MC PRN ×2 (10:45)
[2018-11-10] MEDS ORDERED: IV NORMAL SALINE 1000ML BAG 1,000 ML IV PRN ×2 (10:45)
[2018-11-10 11:00] VITALS: BP 118/52
--- NOTE | 2018-11-10 13:15 | NUR ---
SW following pt. PT/OT pending. PT unable to see pt today as pt is in HD. Will continue to follow.
--- NOTE | 2018-11-10 13:58 | PDOC2 ---
CONSULT Date of Consult Date of Consult DATE: 11/10/18 TIME: 13:47 Reason for Consult Reason for Consult: ESRD Identification/Chief Complaint Chief Complaint Lt arm pain and numbness Source Source: Chart review History of Present Illness Reason for Visit: Pt is a 88 year old AAF ESRD on HD with mult prior DVT, clot, vascular issues , presents with acute left arm pain and numbness prior known stenosis and thrombosis HD MWF, was dialyzed yesterday as OP Past Medical History Cardiovascular: CAD, HTN, Hyperlipidemia, Other Pulmonary: Pulmonary embolus CENTRAL NERVOUS SYSTEM: Other GI: No pertinent hx Heme/Onc: Anemia NOS Hepatobiliary: No pertinent hx Psych: No pertinent hx Rheumatologic: No pertinent hx Infectious disease: No pertinent hx Renal/: Chronic renal failure Endocrine: Diabetes Past Surgical History Past Surgical History: Other Family History Family History: Family History Unknown Social History No ALCOHOL: none Drugs: None Lives: with Family Current Problem List Problem List Problems Medical Problems: (1) AV graft malfunction Status: Acute Current Medications Current Medications Current Medications Fentanyl Citrate (Fentanyl 2ml Vial) 50 mcg 1X ONCE IV Last administered on at 03:35; Start 11/09/18 at 03:30; Stop 11/09/18 at 03:32; Status DC Fentanyl Citrate (Fentanyl 2ml Vial) 50 mcg PRN Q2HR PRN IV SEVERE PAIN; Start 11/09/18 at 05:45; Stop 11/10/18 at 05:44; Status DC Heparin Sodium/ Dextrose 500 ml @ 0 mls/hr CONT PRN IV SEE I/O RECORD Last administered on 11/09/18at 06:00; Start 11/09/18 at 05:45; Stop 11/09/18 at 12:40 ; Status DC Lorazepam (Ativan) 0.5 mg 1X ONCE IV Last administered on 11/09/18at 05:57; Start 11/09/18 at 06:00; Stop 11/09/18 at 06:01; Status DC Info (Anti-Coagulation Monitoring By Pharmacy) 1 each PRN DAILY PRN MC SEE COMMENTS Last administered on 11/09/18at 05:58; Start 11/09/18 at 05:45; Stop at 12:41; Status DC Iodixanol (Visipaque 320) 100 ml STK-MED ONCE .ROUTE ; Start 11/09/18 at 07:15; Stop 11/09/18 at 07:16; Status DC Lidocaine/Sodium Bicarbonate (Buffered Lidocaine 1%) 3 ml STK-MED ONCE .ROUTE ; Start 11/09/18 at 07:15; Stop 11/09/18 at 07:16; Status DC Heparin Sodium/ Sodium Chloride 1,000 ml @ As Directed STK-MED ONCE .ROUTE ; Start 11/09/18 at 07:15; Stop 11/09/18 at 07:16; Status DC Iodixanol (Visipaque 320) 100 ml STK-MED ONCE .ROUTE ; Start 11/09/18 at 07:44; Stop 11/09/18 at 07:45; Status DC Iodixanol (Visipaque 320) 50 ml STK-MED ONCE .ROUTE ; Start 11/09/18 at 07:44; Stop 11/09/18 at 07:45; Status DC Iodixanol (Visipaque 320) 100 ml STK-MED ONCE .ROUTE ; Start 11/09/18 at 07:47; Stop 11/09/18 at 07:48; Status DC Midazolam HCl (Versed) 2 mg STK-MED ONCE .ROUTE ; Start 11/09/18 at 07:48; Stop 11/09/18 at 07:49; Status DC Fentanyl Citrate (Fentanyl 2ml Vial) 100 mcg STK-MED ONCE .ROUTE ; Start at 07:48; Stop 11/09/18 at 07:49; Status DC Heparin Sodium (Porcine) (Heparin Sodium) 10,000 unit STK-MED ONCE .ROUTE ; Start 11/09/18 at 08:03; Stop 11/09/18 at 08:04; Status DC Diphenhydramine HCl (Benadryl) 50 mg STK-MED ONCE .ROUTE ; Start 11/09/18 at 08: 28; Stop 11/09/18 at 08:29; Status DC Hydromorphone HCl (Dilaudid) 2 mg 1X ONCE IV Last administered on 11/09/18at 10 :43; Start 11/09/18 at 08:30; Stop 11/09/18 at 08:31; Status DC Heparin Sodium/ Sodium Chloride 500 ml @ As Directed STK-MED ONCE .ROUTE ; Start 11/09/18 at 08:59; Stop 11/09/18 at 09:00; Status DC Iodixanol (Visipaque 320) 100 ml STK-MED ONCE .ROUTE ; Start 11/09/18 at 09:04; Stop 11/09/18 at 09:05; Status DC Heparin Sodium/ Sodium Chloride (HEPARIN for ARTERIAL LINE FLUSH) 1,000 unit 1X ONCE IART Last administered on 11/09/18 10:40; Start 11/09/18 at 09:15; Stop 11/09/18 at 09:16; Status DC Heparin Sodium/ Sodium Chloride (HEPARIN for ARTERIAL LINE FLUSH) 1,000 unit 1X ONCE IART Last administered on 11/09/18 10:40; Start 11/09/18 at 09:15; Stop 11/09/18 at 09:16; Status DC Lidocaine/Sodium Bicarbonate (Buffered Lidocaine 1%) 6 ml 1X ONCE IJ Last administered on 11/09/18 10:42; Start 11/09/18 at 09:15; Stop 11/09/18 at 09:16 ; Status DC Midazolam HCl (Versed) 2 mg 1X ONCE IV Last administered on 11/09/18 10:43; Start 11/09/18 at 09:15; Stop 11/09/18 at 09:16; Status DC Fentanyl Citrate (Fentanyl 2ml Vial) 100 mcg 1X ONCE IV Last administered on 10:44; Start 11/09/18 at 09:15; Stop 11/09/18 at 09:16; Status DC Iodixanol (Visipaque 320) 100 ml 1X ONCE IART Last administered on 11/09/18 10:44; Start 11/09/18 at 09:15; Stop 11/09/18 at 09:16; Status DC Heparin Sodium (Porcine) (Heparin Sodium) 7,500 unit 1X ONCE IV Last administered on 11/09/18 10:47; Start 11/09/18 at 09:15; Stop 11/09/18 at 09:16 ; Status DC Diphenhydramine HCl (Benadryl) 50 mg 1X ONCE IVP Last administered on 10:44; Start 11/09/18 at 09:15; Stop 11/09/18 at 09:16; Status DC Iodixanol (Visipaque 320) 50 ml 1X ONCE IART Last administered on 11/09/18 10 :45; Start 11/09/18 at 09:15; Stop 11/09/18 at 09:16; Status DC Info (CONTRAST GIVEN -- Rx MONITORING) 1 each PRN DAILY PRN MC SEE COMMENTS; Start 11/09/18 at 09:15; Stop 11/11/18 at 09:14 Heparin Sodium/ Sodium Chloride (HEPARIN for ARTERIAL LINE FLUSH) 1,000 unit 1X ONCE IV Last administered on 11/09/18at 10:41; Start 11/09/18 at 09:30; Stop 11/09/18 at 09:31; Status DC Heparin Sodium/ Sodium Chloride (HEPARIN for ARTERIAL LINE FLUSH) 1,000 unit 1X ONCE IV Last administered on 11/09/18at 10:42; Start 11/09/18 at 09:30; Stop 11/09/18 at 09:31; Status DC Iodixanol (Visipaque 320) 100 ml STK-MED ONCE .ROUTE ; Start 11/09/18 at 09:41; Stop 11/09/18 at 09:42; Status DC Midazolam HCl (Versed) 2 mg STK-MED ONCE .ROUTE ; Start 11/09/18 at 09:50; Stop 11/09/18 at 09:51; Status DC Heparin Sodium/ Sodium Chloride 500 ml @ As Directed STK-MED ONCE .ROUTE ; Start 11/09/18 at 09:56; Stop 11/09/18 at 09:57; Status DC Iodixanol (Visipaque 320) 50 ml STK-MED ONCE .ROUTE ; Start 11/09/18 at 10:00; Stop 11/09/18 at 10:01; Status DC Clopidogrel Bisulfate (Plavix) 300 mg 1X ONCE PO Last administered on at 18:19; Start 11/09/18 at 12:15; Stop 11/09/18 at 12:16; Status DC Clopidogrel Bisulfate (Plavix) 75 mg 1X ONCE PO ; Start 11/10/18 at 08:00; Stop 11/10/18 at 08:01; Status DC Albuterol Sulfate (Ventolin Neb Soln) 2.5 mg PRN Q6HRS PRN INH SHORTNESS OF BREATH; Start 11/09/18 at 14:30 Amlodipine Besylate (Norvasc) 10 mg PRN DAILY PRN PO HYPERTENSION, SEE COMMENTS ; Start 11/09/18 at 14:30 Aspirin (Ecotrin) 81 mg DAILY PO ; Start 11/10/18 at 09:00 Cinacalcet (Sensipar) 30 mg DAILYWSUP PO ; Start 11/09/18 at 17:00 Clonidine HCl (Catapres Tts-2) 1 patch WEEKLY TD ; Start 11/10/18 at 09:00 Clonidine HCl (Catapres) 0.2 mg BID PO ; Start 11/09/18 at 21:00; Status UNV Clopidogrel Bisulfate (Plavix) 75 mg DAILY PO ; Start 11/11/18 at 09:00 Fentanyl (Duragesic 25mcg/ Hr Patch) 1 patch Q72H TD ; Start 11/09/18 at 15:00 Ferrous Sulfate (Feosol) 325 mg DAILY PO Last administered on 11/10/18at 09:44; Start 11/09/18 at 15:00 Furosemide (Lasix) 40 mg DAILY PO Last administered on 11/09/18at 21:49; Start 11/09/18 at 15:00 Sevelamer Carbonate (Renvela) 1,600 mg TIDWMEALHC PO Last administered on at 10:11; Start 11/09/18 at 17:00 Calcium Acetate (Phoslo) 1,334 mg TIDWMEALS PO Last administered on 11/10/18at 10:11; Start 11/09/18 at 17:00 Losartan Potassium (Cozaar) 100 mg DAILY PO Last administered on 11/09/18at 21: 49; Start 11/09/18 at 15:00 Atorvastatin Calcium (Lipitor) 5 mg QHS PO Last administered on 11/09/18at 21:49 ; Start 11/09/18 at 21:00 Vitamin B Complex/ Vitamin C (Hyacinth-Brad) 1 tab DAILY PO Last administered on at 09:43; Start 11/09/18 at 15:00 Sodium Chloride 1,000 ml @ 1,000 mls/hr Q1H PRN IV hypotension; Start 11/10/18 at 10:45; Stop 11/10/18 at 16:44 Sodium Chloride 1,000 ml @ 400 mls/hr Q2H30M PRN IV PATENCY; Start 11/10/18 at 10:45; Stop 11/10/18 at 22:44 Info (PHARMACY MONITORING -- do not chart) 1 each PRN DAILY PRN MC SEE COMMENTS ; Start 11/10/18 at 10:45; Stop 11/10/18 at 10:49; Status DC Info (PHARMACY MONITORING -- do not chart) 1 each PRN DAILY PRN MC SEE COMMENTS ; Start 11/10/18 at 10:45 Active Scripts Active Proair Hfa Inhaler (Albuterol Sulfate) 8.5 Gm Hfa.aer.ad 1 Puff INH PRN Q6HRS PRN 14 Days Doxycycline Hyclate 100 Mg Tablet 100 Mg PO BID 7 Days Reported FENTANYL 25mcg/hr (Fentanyl) 1 Each Patch.td72 1 Patch TD Q72H Clopidogrel (Clopidogrel Bisulfate) 75 Mg Tablet 1 Tab PO DAILY Catapres-Tts 2 (Clonidine) 1 Each Patch.tdwk 1 Each TD WEEKLY Clonidine Hcl 0.2 Mg Tablet 0.2 Mg PO BID Dialyvite [place] D Tablet (Multivitamin, Min Cmb#25/Fa/D3) 1 Each Tablet 1 Each PO DAILY Renvela (Sevelamer Carbonate) 800 Mg Tablet 2 Tab PO TIDWMEALHC Sensipar (Cinacalcet Hcl) 30 Mg Tablet 1 Tab PO DAILYWSUP Calcium Acetate 667 Mg Tablet 1,334 Mg PO TIDWMEALS Lovastatin 10 Mg Tablet 10 Mg PO HS Losartan Potassium 100 Mg Tablet 100 Mg PO DAILY Amlodipine Besylate 10 Mg Tablet 10 Mg PO PRN DAILY PRN Ferrous Sulfate 325 Mg Tablet 1 Tab PO DAILY Lasix (Furosemide) 40 Mg Tablet 1 Tab PO DAILY Aspir 81 (Aspirin) 81 Mg Tablet. 1 Tab PO DAILY Allergies Allergies: Coded Allergies: No Known Drug Allergies (Unverified , 07/14/17) ROS Review of System As per HPI Physical Exam Physical Exam General: Alert, Oriented X3, Cooperative, No acute distress HEENT: EOMI, Mucous membr. moist/pink Neck Supple Lungs: Clear to auscultation, Non labored Heart: S1S2, no gallops, no murmurs Abdomen: Normal bowel sounds, Soft Extremities: No edema, Skin: No rash Neuro: Grossly normal - No [place] Vital Signs Vital Signs Date Time Temp Pulse Resp B/P (MAP) Pulse Ox O2 Delivery O2 Flow Rate FiO2 11/10/18 11:00 98.2 56 18 118/52 (74) 98 Room Air 98.2 11/09/18 11:38 2.0 Assessment & Plan ESRD - On HD - MWF- [facility]- Dr. 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 and Phoslo/Renvela (Home meds) Anemia- Hgn> 10 No indication for FLAQUITO DM2 PAD- Recent admission for Rt LE pain Ischemic hand, s/p left subclavian artery stenting with improved circulation, patent upper arm AV access no surgical intervention needed as per vascular Labs Labs Laboratory Tests Test 11/09/18 03:15 11/09/18 17:02 11/09/18 19:54 11/10/18 07:17 White Blood Count 8.6 x10^3/uL (4.0-11.0) Red Blood Count 3.45 x10^6/uL (3.50-5.40) Hemoglobin 10.7 g/dL (12.0-15.5) Hematocrit 31.1 % (36.0-47.0) Mean Corpuscular Volume 90 fL (79-100) Mean Corpuscular Hemoglobin 31 pg (25-35) Mean Corpuscular Hemoglobin Concent 34 g/dL (31-37) Red Cell Distribution Width 16.3 % (11.5-14.5) Platelet Count 337 x10^3/uL (140-400) Neutrophils (%) (Auto) 76 % (31-73) Lymphocytes (%) (Auto) 11 % (24-48) Monocytes (%) (Auto) 11 % (0-9) Eosinophils (%) (Auto) 1 % (0-3) Basophils (%) (Auto) 1 % (0-3) Neutrophils # (Auto) 6.5 x10^3uL (1.8-7.7) Lymphocytes # (Auto) 0.9 x10^3/uL (1.0-4.8) Monocytes # (Auto) 1.0 x10^3/uL (0.0-1.1) Eosinophils # (Auto) 0.1 x10^3/uL (0.0-0.7) Basophils # (Auto) 0.1 x10^3/uL (0.0-0.2) Segmented Neutrophils % 75 % (35-66) Lymphocytes % 12 % (24-48) Monocytes % 10 % (0-10) Eosinophils % 2 % (0-5) Basophils % 1 % (0-3) Platelet Estimate Adequate (ADEQUATE) Hypochromasia Slight Anisocytosis Slight Spherocytes Occ Prothrombin Time 14.2 SEC (11.7-14.0) Prothromb Time International Ratio 1.1 (0.8-1.1) Sodium Level 143 mmol/L (136-145) Potassium Level 4.0 mmol/L (3.5-5.1) Chloride Level 99 mmol/L (98-107) Carbon Dioxide Level 32 mmol/L (21-32) Anion Gap 12 (6-14) Blood Urea Nitrogen 21 mg/dL (7-20) Creatinine 6.4 mg/dL (0.6-1.0) Estimated GFR (Cockcroft-Gault) 7.5 BUN/Creatinine Ratio 3 (6-20) Glucose Level 132 mg/dL (70-99) Calcium Level 8.7 mg/dL (8.5-10.1) Total Bilirubin 0.4 mg/dL (0.2-1.0) Aspartate Amino Transf (AST/SGOT) 27 U/L (15-37) Alanine Aminotransferase (ALT/SGPT) 19 U/L (14-59) Alkaline Phosphatase 124 U/L (46-116) Troponin I Quantitative 0.066 ng/mL (0.000-0.055) Total Protein 7.5 g/dL (6.4-8.2) Albumin 3.0 g/dL (3.4-5.0) Albumin/Globulin Ratio 0.7 (1.0-1.7) Glucose (Fingerstick) 67 mg/dL (70-99) 83 mg/dL (70-99) 96 mg/dL (70-99) Laboratory Tests Test 11/09/18 17:02 11/09/18 19:54 11/10/18 07:17 Glucose (Fingerstick) 67 mg/dL (70-99) 83 mg/dL (70-99) 96 mg/dL (70-99) Review All relevant outside records, renal labs, imaging studies, telemetry/EKG's were reviewed. Images Images Left arm arterial study: IMPRESSION: 1. Left forearm graft is thrombosed. 2. AV graft within the upper arm appears patent with slow flow within and monophasic waveforms with blunted appearance. Region such as narrowing is possible given this finding. Procedure: Diagnostic right pelvic angiogram, diagnostic aortogram, diagnostic left upper extremity arteriogram, diagnostic shuntogram, diagnostic cerebral arteriogram, stenting and drug coated balloon angioplasty of the right external iliac artery, and stenting of the left subclavian artery. Impression: 1. 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 This was successfully excluded with covered stent after interrogation of the cerebral circulation revealed absence of perfusion within the vertical cervical left vertebral artery. 2. Moderate multifocal disease involving the [place] arteries of the left forearm, with patency of the ulnar and interosseous arteries to the wrist, and tapered occlusion of the radial artery at the mid forearm. The distal radial artery is reconstituted by collaterals from the interosseous artery. 3. 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 Consequently, this was treated with primary stent placement and drug coated balloon angioplasty with excellent angiographic result. TOMMY LUND MD Nov 10, 2018 13:58
[2018-11-10 15:00] VITALS: BP 104/35
--- NOTE | 2018-11-10 15:42 | PDOC ---
PROGRESS NOTES Chief Complaint Chief Complaint limb ischemia, acute to hand, s/p IR - better ESRD weakness and debility acute encephalopathy Atherosclerosis to [place] artery of right leg, s/p rt ext iliac stent History of Present Illness History of Present Illness sleepy today Vitals Vitals Vital Signs Date Time Temp Pulse Resp B/P (MAP) Pulse Ox O2 Delivery O2 Flow Rate FiO2 11/10/18 11:00 98.2 56 18 118/52 (74) 98 Room Air 98.2 11/09/18 11:38 2.0 Physical Exam General: Alert, Oriented X3, Cooperative, No acute distress Lungs: Crackles Abdomen: Normal bowel sounds, Soft Extremities: No clubbing, No edema, Normal pulses Skin: No breakdown, No significant lesion Labs LABS Laboratory Tests Test 11/09/18 17:02 11/09/18 19:54 11/10/18 07:17 Glucose (Fingerstick) 67 mg/dL (70-99) 83 mg/dL (70-99) 96 mg/dL (70-99) Review of Systems Review of Systems no nv.d.' Assessment and Plan Assessmemt and Plan Problems Medical Problems: (1) AV graft malfunction Status: Acute Comment Review of Relevant I have reviewed the following items vicente (where applicable) has been applied. Labs Laboratory Tests Test 11/09/18 03:15 11/09/18 17:02 11/09/18 19:54 11/10/18 07:17 White Blood Count 8.6 x10^3/uL (4.0-11.0) Red Blood Count 3.45 x10^6/uL (3.50-5.40) Hemoglobin 10.7 g/dL (12.0-15.5) Hematocrit 31.1 % (36.0-47.0) Mean Corpuscular Volume 90 fL (79-100) Mean Corpuscular Hemoglobin 31 pg (25-35) Mean Corpuscular Hemoglobin Concent 34 g/dL (31-37) Red Cell Distribution Width 16.3 % (11.5-14.5) Platelet Count 337 x10^3/uL (140-400) Neutrophils (%) (Auto) 76 % (31-73) Lymphocytes (%) (Auto) 11 % (24-48) Monocytes (%) (Auto) 11 % (0-9) Eosinophils (%) (Auto) 1 % (0-3) Basophils (%) (Auto) 1 % (0-3) Neutrophils # (Auto) 6.5 x10^3uL (1.8-7.7) Lymphocytes # (Auto) 0.9 x10^3/uL (1.0-4.8) Monocytes # (Auto) 1.0 x10^3/uL (0.0-1.1) Eosinophils # (Auto) 0.1 x10^3/uL (0.0-0.7) Basophils # (Auto) 0.1 x10^3/uL (0.0-0.2) Segmented Neutrophils % 75 % (35-66) Lymphocytes % 12 % (24-48) Monocytes % 10 % (0-10) Eosinophils % 2 % (0-5) Basophils % 1 % (0-3) Platelet Estimate Adequate (ADEQUATE) Hypochromasia Slight Anisocytosis Slight Spherocytes Occ Prothrombin Time 14.2 SEC (11.7-14.0) Prothromb Time International Ratio 1.1 (0.8-1.1) Sodium Level 143 mmol/L (136-145) Potassium Level 4.0 mmol/L (3.5-5.1) Chloride Level 99 mmol/L (98-107) Carbon Dioxide Level 32 mmol/L (21-32) Anion Gap 12 (6-14) Blood Urea Nitrogen 21 mg/dL (7-20) Creatinine 6.4 mg/dL (0.6-1.0) Estimated GFR (Cockcroft-Gault) 7.5 BUN/Creatinine Ratio 3 (6-20) Glucose Level 132 mg/dL (70-99) Calcium Level 8.7 mg/dL (8.5-10.1) Total Bilirubin 0.4 mg/dL (0.2-1.0) Aspartate Amino Transf (AST/SGOT) 27 U/L (15-37) Alanine Aminotransferase (ALT/SGPT) 19 U/L (14-59) Alkaline Phosphatase 124 U/L (46-116) Troponin I Quantitative 0.066 ng/mL (0.000-0.055) Total Protein 7.5 g/dL (6.4-8.2) Albumin 3.0 g/dL (3.4-5.0) Albumin/Globulin Ratio 0.7 (1.0-1.7) Glucose (Fingerstick) 67 mg/dL (70-99) 83 mg/dL (70-99) 96 mg/dL (70-99) Laboratory Tests Test 11/09/18 17:02 11/09/18 19:54 11/10/18 07:17 Glucose (Fingerstick) 67 mg/dL (70-99) 83 mg/dL (70-99) 96 mg/dL (70-99) Medications Current Medications Fentanyl Citrate (Fentanyl 2ml Vial) 50 mcg 1X ONCE IV Last administered on at 03:35; Start 11/09/18 at 03:30; Stop 11/09/18 at 03:32; Status DC Fentanyl Citrate (Fentanyl 2ml Vial) 50 mcg PRN Q2HR PRN IV SEVERE PAIN; Start 11/09/18 at 05:45; Stop 11/10/18 at 05:44; Status DC Heparin Sodium/ Dextrose 500 ml @ 0 mls/hr CONT PRN IV SEE I/O RECORD Last administered on 11/09/18at 06:00; Start 11/09/18 at 05:45; Stop 11/09/18 at 12:40 ; Status DC Lorazepam (Ativan) 0.5 mg 1X ONCE IV Last administered on 11/09/18at 05:57; Start 11/09/18 at 06:00; Stop 11/09/18 at 06:01; Status DC Info (Anti-Coagulation Monitoring By Pharmacy) 1 each PRN DAILY PRN MC SEE COMMENTS Last administered on 11/09/18at 05:58; Start 11/09/18 at 05:45; Stop at 12:41; Status DC Iodixanol (Visipaque 320) 100 ml STK-MED ONCE .ROUTE ; Start 11/09/18 at 07:15; Stop 11/09/18 at 07:16; Status DC Lidocaine/Sodium Bicarbonate (Buffered Lidocaine 1%) 3 ml STK-MED ONCE .ROUTE ; Start 11/09/18 at 07:15; Stop 11/09/18 at 07:16; Status DC Heparin Sodium/ Sodium Chloride 1,000 ml @ As Directed STK-MED ONCE .ROUTE ; Start 11/09/18 at 07:15; Stop 11/09/18 at 07:16; Status DC Iodixanol (Visipaque 320) 100 ml STK-MED ONCE .ROUTE ; Start 11/09/18 at 07:44; Stop 11/09/18 at 07:45; Status DC Iodixanol (Visipaque 320) 50 ml STK-MED ONCE .ROUTE ; Start 11/09/18 at 07:44; Stop 11/09/18 at 07:45; Status DC Iodixanol (Visipaque 320) 100 ml STK-MED ONCE .ROUTE ; Start 11/09/18 at 07:47; Stop 11/09/18 at 07:48; Status DC Midazolam HCl (Versed) 2 mg STK-MED ONCE .ROUTE ; Start 11/09/18 at 07:48; Stop 11/09/18 at 07:49; Status DC Fentanyl Citrate (Fentanyl 2ml Vial) 100 mcg STK-MED ONCE .ROUTE ; Start at 07:48; Stop 11/09/18 at 07:49; Status DC Heparin Sodium (Porcine) (Heparin Sodium) 10,000 unit STK-MED ONCE .ROUTE ; Start 11/09/18 at 08:03; Stop 11/09/18 at 08:04; Status DC Diphenhydramine HCl (Benadryl) 50 mg STK-MED ONCE .ROUTE ; Start 11/09/18 at 08: 28; Stop 11/09/18 at 08:29; Status DC Hydromorphone HCl (Dilaudid) 2 mg 1X ONCE IV Last administered on 11/09/18at 10 :43; Start 11/09/18 at 08:30; Stop 11/09/18 at 08:31; Status DC Heparin Sodium/ Sodium Chloride 500 ml @ As Directed STK-MED ONCE .ROUTE ; Start 11/09/18 at 08:59; Stop 11/09/18 at 09:00; Status DC Iodixanol (Visipaque 320) 100 ml STK-MED ONCE .ROUTE ; Start 11/09/18 at 09:04; Stop 11/09/18 at 09:05; Status DC Heparin Sodium/ Sodium Chloride (HEPARIN for ARTERIAL LINE FLUSH) 1,000 unit 1X ONCE IART Last administered on 11/09/18at 10:40; Start 11/09/18 at 09:15; Stop 11/09/18 at 09:16; Status DC Heparin Sodium/ Sodium Chloride (HEPARIN for ARTERIAL LINE FLUSH) 1,000 unit 1X ONCE IART Last administered on 11/09/18 10:40; Start 11/09/18 at 09:15; Stop 11/09/18 at 09:16; Status DC Lidocaine/Sodium Bicarbonate (Buffered Lidocaine 1%) 6 ml 1X ONCE IJ Last administered on 11/09/18 10:42; Start 11/09/18 at 09:15; Stop 11/09/18 at 09:16 ; Status DC Midazolam HCl (Versed) 2 mg 1X ONCE IV Last administered on 11/09/18 10:43; Start 11/09/18 at 09:15; Stop 11/09/18 at 09:16; Status DC Fentanyl Citrate (Fentanyl 2ml Vial) 100 mcg 1X ONCE IV Last administered on 10:44; Start 11/09/18 at 09:15; Stop 11/09/18 at 09:16; Status DC Iodixanol (Visipaque 320) 100 ml 1X ONCE IART Last administered on 11/09/18 10:44; Start 11/09/18 at 09:15; Stop 11/09/18 at 09:16; Status DC Heparin Sodium (Porcine) (Heparin Sodium) 7,500 unit 1X ONCE IV Last administered on 11/09/18 10:47; Start 11/09/18 at 09:15; Stop 11/09/18 at 09:16 ; Status DC Diphenhydramine HCl (Benadryl) 50 mg 1X ONCE IVP Last administered on 10:44; Start 11/09/18 at 09:15; Stop 11/09/18 at 09:16; Status DC Iodixanol (Visipaque 320) 50 ml 1X ONCE IART Last administered on 11/09/18 10 :45; Start 11/09/18 at 09:15; Stop 11/09/18 at 09:16; Status DC Info (CONTRAST GIVEN -- Rx MONITORING) 1 each PRN DAILY PRN MC SEE COMMENTS; Start 11/09/18 at 09:15; Stop 11/11/18 at 09:14 Heparin Sodium/ Sodium Chloride (HEPARIN for ARTERIAL LINE FLUSH) 1,000 unit 1X ONCE IV Last administered on 11/09/18 10:41; Start 11/09/18 at 09:30; Stop 11/09/18 at 09:31; Status DC Heparin Sodium/ Sodium Chloride (HEPARIN for ARTERIAL LINE FLUSH) 1,000 unit 1X ONCE IV Last administered on 11/09/18at 10:42; Start 11/09/18 at 09:30; Stop 11/09/18 at 09:31; Status DC Iodixanol (Visipaque 320) 100 ml STK-MED ONCE .ROUTE ; Start 11/09/18 at 09:41; Stop 11/09/18 at 09:42; Status DC Midazolam HCl (Versed) 2 mg STK-MED ONCE .ROUTE ; Start 11/09/18 at 09:50; Stop 11/09/18 at 09:51; Status DC Heparin Sodium/ Sodium Chloride 500 ml @ As Directed STK-MED ONCE .ROUTE ; Start 11/09/18 at 09:56; Stop 11/09/18 at 09:57; Status DC Iodixanol (Visipaque 320) 50 ml STK-MED ONCE .ROUTE ; Start 11/09/18 at 10:00; Stop 11/09/18 at 10:01; Status DC Clopidogrel Bisulfate (Plavix) 300 mg 1X ONCE PO Last administered on at 18:19; Start 11/09/18 at 12:15; Stop 11/09/18 at 12:16; Status DC Clopidogrel Bisulfate (Plavix) 75 mg 1X ONCE PO ; Start 11/10/18 at 08:00; Stop 11/10/18 at 08:01; Status DC Albuterol Sulfate (Ventolin Neb Soln) 2.5 mg PRN Q6HRS PRN INH SHORTNESS OF BREATH; Start 11/09/18 at 14:30 Amlodipine Besylate (Norvasc) 10 mg PRN DAILY PRN PO HYPERTENSION, SEE COMMENTS ; Start 11/09/18 at 14:30 Aspirin (Ecotrin) 81 mg DAILY PO ; Start 11/10/18 at 09:00 Cinacalcet (Sensipar) 30 mg DAILYWSUP PO ; Start 11/09/18 at 17:00 Clonidine HCl (Catapres Tts-2) 1 patch WEEKLY TD ; Start 11/10/18 at 09:00 Clonidine HCl (Catapres) 0.2 mg BID PO ; Start 11/09/18 at 21:00; Status UNV Clopidogrel Bisulfate (Plavix) 75 mg DAILY PO ; Start 11/11/18 at 09:00 Fentanyl (Duragesic 25mcg/ Hr Patch) 1 patch Q72H TD ; Start 11/09/18 at 15:00 Ferrous Sulfate (Feosol) 325 mg DAILY PO Last administered on 11/10/18at 09:44; Start 11/09/18 at 15:00 Furosemide (Lasix) 40 mg DAILY PO Last administered on 11/09/18at 21:49; Start 11/09/18 at 15:00 Sevelamer Carbonate (Renvela) 1,600 mg TIDWMEALHC PO Last administered on at 10:11; Start 11/09/18 at 17:00 Calcium Acetate (Phoslo) 1,334 mg TIDWMEALS PO Last administered on 11/10/18 10:11; Start 11/09/18 at 17:00 Losartan Potassium (Cozaar) 100 mg DAILY PO Last administered on 11/09/18at 21: 49; Start 11/09/18 at 15:00 Atorvastatin Calcium (Lipitor) 5 mg QHS PO Last administered on 11/09/18at 21:49 ; Start 11/09/18 at 21:00 Vitamin B Complex/ Vitamin C (Hyacinth-Brad) 1 tab DAILY PO Last administered on at 09:43; Start 11/09/18 at 15:00 Sodium Chloride 1,000 ml @ 1,000 mls/hr Q1H PRN IV hypotension; Start 11/10/18 at 10:45; Stop 11/10/18 at 16:44 Sodium Chloride 1,000 ml @ 400 mls/hr Q2H30M PRN IV PATENCY; Start 11/10/18 at 10:45; Stop 11/10/18 at 22:44 Info (PHARMACY MONITORING -- do not chart) 1 each PRN DAILY PRN MC SEE COMMENTS ; Start 11/10/18 at 10:45; Stop 11/10/18 at 10:49; Status DC Info (PHARMACY MONITORING -- do not chart) 1 each PRN DAILY PRN MC SEE COMMENTS ; Start 11/10/18 at 10:45 Active Scripts Active Proair Hfa Inhaler (Albuterol Sulfate) 8.5 Gm Hfa.aer.ad 1 Puff INH PRN Q6HRS PRN 14 Days Doxycycline Hyclate 100 Mg Tablet 100 Mg PO BID 7 Days Reported FENTANYL 25mcg/hr (Fentanyl) 1 Each Patch.td72 1 Patch TD Q72H Clopidogrel (Clopidogrel Bisulfate) 75 Mg Tablet 1 Tab PO DAILY Catapres-Tts 2 (Clonidine) 1 Each Patch.tdwk 1 Each TD WEEKLY Clonidine Hcl 0.2 Mg Tablet 0.2 Mg PO BID Dialyvite Blairs D Tablet (Multivitamin, Min Cmb#25/Fa/D3) 1 Each Tablet 1 Each PO DAILY Renvela (Sevelamer Carbonate) 800 Mg Tablet 2 Tab PO TIDWMEALHC Sensipar (Cinacalcet Hcl) 30 Mg Tablet 1 Tab PO DAILYWSUP Calcium Acetate 667 Mg Tablet 1,334 Mg PO TIDWMEALS Lovastatin 10 Mg Tablet 10 Mg PO HS Losartan Potassium 100 Mg Tablet 100 Mg PO DAILY Amlodipine Besylate 10 Mg Tablet 10 Mg PO PRN DAILY PRN Ferrous Sulfate 325 Mg Tablet 1 Tab PO DAILY Lasix (Furosemide) 40 Mg Tablet 1 Tab PO DAILY Aspir 81 (Aspirin) 81 Mg Tablet.dr 1 Tab PO DAILY Vitals/I & O Vital Sign - Last 24 Hours 11/09/18 11/09/18 11/09/18 11/09/18 16:41 19:00 20:00 21:49 Temp 97.6 97.6 Pulse 84 84 Resp 16 B/P (MAP) 114/49 (70) 114/49 Pulse Ox 92 97 O2 Delivery Room Air Room Air Room Air 11/09/18 11/10/18 11/10/18 11/10/18 23:00 03:00 07:00 08:00 Temp 97.9 97.9 97.7 97.9 97.9 97.7 Pulse 78 79 78 Resp 16 16 18 B/P (MAP) 113/46 (68) 111/42 (65) 112/49 (70) Pulse Ox 90 91 99 O2 Delivery Room Air Room Air Room Air Room Air 11/10/18 11:00 Temp 98.2 98.2 Pulse 56 Resp 18 B/P (MAP) 118/52 (74) Pulse Ox 98 O2 Delivery Room Air Intake and Output 11/09/18 11/09/18 11/10/18 15:00 23:00 07:00 Intake Total 0 ml 30 ml 50 ml Balance 0 ml 30 ml 50 ml HERRERA RODRIGUEZ MD Nov 10, 2018 15:42
[2018-11-10] MEDS: FUROSEMIDE 40 MG TABLET. PO SCH (16:25)
[2018-11-10] MEDS: oxyCODONE/APAP 5/325 1 TAB TABLET PO PRN ×2 (16:26→22:25)
[2018-11-10] MEDS: ASPIRIN ENTERIC COATED 81 MG TABLET.DR. PO SCH (16:26)
[2018-11-10] MEDS: CINACALCET HCL 30 MG TABLET PO SCH (16:26)
[2018-11-10] MEDS: LOSARTAN POTASSIUM 50 MG TABLET. PO SCH (16:27)
[2018-11-10 19:00] VITALS: BP 106/36
[2018-11-10] MEDS: ATORVASTATIN CALCIUM 10 MG TABLET. PO SCH (20:42)
[2018-11-10 23:00] VITALS: BP 102/35
[2018-11-11 03:00] VITALS: BP 103/34
[2018-11-11 07:00] VITALS: BP 105/43
[2018-11-11 07:40] LABS: BASO % 1 % (0-3); EOS # 0.2 x10^3/uL (0.0-0.7); EOS % 2 % (0-3); HEMATOCRIT 30.6 % (36.0-47.0); HEMOGLOBIN 9.7 g/dL (12.0-15.5); LYMPH # 0.9 x10^3/uL (1.0-4.8); LYMPH % 10 % (24-48); MEAN CORPUSCULAR HEMOGLOBIN 29 pg (25-35); MEAN CORPUSCULAR HGB CONC 32 g/dL (31-37); MEAN CORPUSCULAR VOLUME 91 fL (79-100); MONO # 0.9 x10^3/uL (0.0-1.1); MONO % 10 % (0-9); NEUT # 7.1 x10^3uL (1.8-7.7); NEUT % 77 % (31-73); PLATELET COUNT 296 x10^3/uL (140-400); RED BLOOD COUNT 3.37 x10^6/uL (3.50-5.40); RED CELL DISTRIBUTION WIDTH 16.2 % (11.5-14.5); WHITE BLOOD COUNT 9.2 x10^3/uL (4.0-11.0)
[2018-11-11] MEDS: SEVELAMER CARBONATE 800 MG TABLET. PO SCH ×4 (08:50→20:17)
[2018-11-11] MEDS: oxyCODONE/APAP 5/325 1 TAB TABLET PO PRN (08:50)
[2018-11-11] MEDS: FERROUS SULFATE 325 MG TABLET. PO SCH (08:51)
[2018-11-11] MEDS: ASPIRIN ENTERIC COATED 81 MG TABLET.DR. PO SCH (08:51)
[2018-11-11] MEDS: FUROSEMIDE 40 MG TABLET. PO SCH (08:51)
[2018-11-11] MEDS: CINACALCET HCL 30 MG TABLET PO SCH (08:51)
[2018-11-11] MEDS: CLOPIDOGREL BISULFATE 75 MG TABLET PO SCH (08:51)
[2018-11-11] MEDS: CALCIUM ACETATE 667 MG CAPSULE PO SCH ×3 (08:52→17:03)
[2018-11-11] MEDS: FOLIC/VIT B COMP W-C (RENAL) TABLET. PO SCH (08:52)
[2018-11-11] MEDS: LOSARTAN POTASSIUM 50 MG TABLET. PO SCH (08:52)
[2018-11-11 08:59] LABS: ALBUMIN 2.7 g/dL (3.4-5.0); ALBUMIN/GLOBULIN RATIO 0.6 (1.0-1.7); CALCIUM 8.8 mg/dL (8.5-10.1); CREATININE 6.9 mg/dL (0.6-1.0); GFR 6.8; POTASSIUM 4.5 mmol/L (3.5-5.1); TOTAL BILIRUBIN 0.4 mg/dL (0.2-1.0); TOTAL PROTEIN 7.2 g/dL (6.4-8.2)
[2018-11-11 11:00] VITALS: BP 100/42
--- NOTE | 2018-11-11 11:47 | PDOC ---
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 Polanco. shoulder cont PT and OT she lives with her daughter, in a home in [place] Vitals Vitals Vital Signs Date Time Temp Pulse Resp B/P (MAP) Pulse Ox O2 Delivery O2 Flow Rate FiO2 11/11/18 08:52 105/43 11/11/18 08:00 Room Air 11/11/18 07:00 98.4 73 18 95 98.4 Physical Exam General: Alert, Oriented X3, Cooperative, No acute distress Lungs: Crackles Abdomen: Normal bowel sounds, Soft Extremities: No clubbing, No edema, Normal pulses Skin: No breakdown, No significant lesion Labs LABS Laboratory Tests Test 11/10/18 16:57 11/10/18 20:34 11/11/18 06:10 11/11/18 07:40 Glucose (Fingerstick) 93 mg/dL (70-99) 119 mg/dL (70-99) 100 mg/dL (70-99) White Blood Count 9.2 x10^3/uL (4.0-11.0) Red Blood Count 3.37 x10^6/uL (3.50-5.40) Hemoglobin 9.7 g/dL (12.0-15.5) Hematocrit 30.6 % (36.0-47.0) Mean Corpuscular Volume 91 fL (79-100) Mean Corpuscular Hemoglobin 29 pg (25-35) Mean Corpuscular Hemoglobin Concent 32 g/dL (31-37) Red Cell Distribution Width 16.2 % (11.5-14.5) Platelet Count 296 x10^3/uL (140-400) Neutrophils (%) (Auto) 77 % (31-73) Lymphocytes (%) (Auto) 10 % (24-48) Monocytes (%) (Auto) 10 % (0-9) Eosinophils (%) (Auto) 2 % (0-3) Basophils (%) (Auto) 1 % (0-3) Neutrophils # (Auto) 7.1 x10^3uL (1.8-7.7) Lymphocytes # (Auto) 0.9 x10^3/uL (1.0-4.8) Monocytes # (Auto) 0.9 x10^3/uL (0.0-1.1) Eosinophils # (Auto) 0.2 x10^3/uL (0.0-0.7) Basophils # (Auto) 0.0 x10^3/uL (0.0-0.2) Test 11/11/18 08:10 11/11/18 11:34 Sodium Level 139 mmol/L (136-145) Potassium Level 4.5 mmol/L (3.5-5.1) Chloride Level 97 mmol/L (98-107) Carbon Dioxide Level 30 mmol/L (21-32) Anion Gap 12 (6-14) Blood Urea Nitrogen 23 mg/dL (7-20) Creatinine 6.9 mg/dL (0.6-1.0) Estimated GFR (Cockcroft-Gault) 6.8 BUN/Creatinine Ratio 3 (6-20) Glucose Level 97 mg/dL (70-99) Calcium Level 8.8 mg/dL (8.5-10.1) Total Bilirubin 0.4 mg/dL (0.2-1.0) Aspartate Amino Transf (AST/SGOT) 38 U/L (15-37) Alanine Aminotransferase (ALT/SGPT) 22 U/L (14-59) Alkaline Phosphatase 114 U/L (46-116) Total Protein 7.2 g/dL (6.4-8.2) Albumin 2.7 g/dL (3.4-5.0) Albumin/Globulin Ratio 0.6 (1.0-1.7) Glucose (Fingerstick) 123 mg/dL (70-99) Review of Systems Review of Systems no n.v.d Assessment and Plan Assessmemt and Plan Problems Medical Problems: (1) AV graft malfunction Status: Acute Comment Review of Relevant I have reviewed the following items vicente (where applicable) has been applied. Labs Laboratory Tests Test 11/09/18 17:02 11/09/18 19:54 11/10/18 07:17 11/10/18 10:47 Glucose (Fingerstick) 67 mg/dL (70-99) 83 mg/dL (70-99) 96 mg/dL (70-99) 133 mg/dL (70-99) Test 11/10/18 16:57 11/10/18 20:34 11/11/18 06:10 11/11/18 07:40 Glucose (Fingerstick) 93 mg/dL (70-99) 119 mg/dL (70-99) 100 mg/dL (70-99) White Blood Count 9.2 x10^3/uL (4.0-11.0) Red Blood Count 3.37 x10^6/uL (3.50-5.40) Hemoglobin 9.7 g/dL (12.0-15.5) Hematocrit 30.6 % (36.0-47.0) Mean Corpuscular Volume 91 fL (79-100) Mean Corpuscular Hemoglobin 29 pg (25-35) Mean Corpuscular Hemoglobin Concent 32 g/dL (31-37) Red Cell Distribution Width 16.2 % (11.5-14.5) Platelet Count 296 x10^3/uL (140-400) Neutrophils (%) (Auto) 77 % (31-73) Lymphocytes (%) (Auto) 10 % (24-48) Monocytes (%) (Auto) 10 % (0-9) Eosinophils (%) (Auto) 2 % (0-3) Basophils (%) (Auto) 1 % (0-3) Neutrophils # (Auto) 7.1 x10^3uL (1.8-7.7) Lymphocytes # (Auto) 0.9 x10^3/uL (1.0-4.8) Monocytes # (Auto) 0.9 x10^3/uL (0.0-1.1) Eosinophils # (Auto) 0.2 x10^3/uL (0.0-0.7) Basophils # (Auto) 0.0 x10^3/uL (0.0-0.2) Test 11/11/18 08:10 11/11/18 11:34 Sodium Level 139 mmol/L (136-145) Potassium Level 4.5 mmol/L (3.5-5.1) Chloride Level 97 mmol/L (98-107) Carbon Dioxide Level 30 mmol/L (21-32) Anion Gap 12 (6-14) Blood Urea Nitrogen 23 mg/dL (7-20) Creatinine 6.9 mg/dL (0.6-1.0) Estimated GFR (Cockcroft-Gault) 6.8 BUN/Creatinine Ratio 3 (6-20) Glucose Level 97 mg/dL (70-99) Calcium Level 8.8 mg/dL (8.5-10.1) Total Bilirubin 0.4 mg/dL (0.2-1.0) Aspartate Amino Transf (AST/SGOT) 38 U/L (15-37) Alanine Aminotransferase (ALT/SGPT) 22 U/L (14-59) Alkaline Phosphatase 114 U/L (46-116) Total Protein 7.2 g/dL (6.4-8.2) Albumin 2.7 g/dL (3.4-5.0) Albumin/Globulin Ratio 0.6 (1.0-1.7) Glucose (Fingerstick) 123 mg/dL (70-99) Laboratory Tests Test 11/10/18 16:57 11/10/18 20:34 11/11/18 06:10 11/11/18 07:40 Glucose (Fingerstick) 93 mg/dL (70-99) 119 mg/dL (70-99) 100 mg/dL (70-99) White Blood Count 9.2 x10^3/uL (4.0-11.0) Red Blood Count 3.37 x10^6/uL (3.50-5.40) Hemoglobin 9.7 g/dL (12.0-15.5) Hematocrit 30.6 % (36.0-47.0) Mean Corpuscular Volume 91 fL (79-100) Mean Corpuscular Hemoglobin 29 pg (25-35) Mean Corpuscular Hemoglobin Concent 32 g/dL (31-37) Red Cell Distribution Width 16.2 % (11.5-14.5) Platelet Count 296 x10^3/uL (140-400) Neutrophils (%) (Auto) 77 % (31-73) Lymphocytes (%) (Auto) 10 % (24-48) Monocytes (%) (Auto) 10 % (0-9) Eosinophils (%) (Auto) 2 % (0-3) Basophils (%) (Auto) 1 % (0-3) Neutrophils # (Auto) 7.1 x10^3uL (1.8-7.7) Lymphocytes # (Auto) 0.9 x10^3/uL (1.0-4.8) Monocytes # (Auto) 0.9 x10^3/uL (0.0-1.1) Eosinophils # (Auto) 0.2 x10^3/uL (0.0-0.7) Basophils # (Auto) 0.0 x10^3/uL (0.0-0.2) Test 11/11/18 08:10 11/11/18 11:34 Sodium Level 139 mmol/L (136-145) Potassium Level 4.5 mmol/L (3.5-5.1) Chloride Level 97 mmol/L (98-107) Carbon Dioxide Level 30 mmol/L (21-32) Anion Gap 12 (6-14) Blood Urea Nitrogen 23 mg/dL (7-20) Creatinine 6.9 mg/dL (0.6-1.0) Estimated GFR (Cockcroft-Gault) 6.8 BUN/Creatinine Ratio 3 (6-20) Glucose Level 97 mg/dL (70-99) Calcium Level 8.8 mg/dL (8.5-10.1) Total Bilirubin 0.4 mg/dL (0.2-1.0) Aspartate Amino Transf (AST/SGOT) 38 U/L (15-37) Alanine Aminotransferase (ALT/SGPT) 22 U/L (14-59) Alkaline Phosphatase 114 U/L (46-116) Total Protein 7.2 g/dL (6.4-8.2) Albumin 2.7 g/dL (3.4-5.0) Albumin/Globulin Ratio 0.6 (1.0-1.7) Glucose (Fingerstick) 123 mg/dL (70-99) Medications Current Medications Fentanyl Citrate (Fentanyl 2ml Vial) 50 mcg 1X ONCE IV Last administered on at 03:35; Start 11/09/18 at 03:30; Stop 11/09/18 at 03:32; Status DC Fentanyl Citrate (Fentanyl 2ml Vial) 50 mcg PRN Q2HR PRN IV SEVERE PAIN; Start 11/09/18 at 05:45; Stop 11/10/18 at 05:44; Status DC Heparin Sodium/ Dextrose 500 ml @ 0 mls/hr CONT PRN IV SEE I/O RECORD Last administered on 11/09/18at 06:00; Start 11/09/18 at 05:45; Stop 11/09/18 at 12:40 ; Status DC Lorazepam (Ativan) 0.5 mg 1X ONCE IV Last administered on 11/09/18at 05:57; Start 11/09/18 at 06:00; Stop 11/09/18 at 06:01; Status DC Info (Anti-Coagulation Monitoring By Pharmacy) 1 each PRN DAILY PRN MC SEE COMMENTS Last administered on 11/09/18at 05:58; Start 11/09/18 at 05:45; Stop at 12:41; Status DC Iodixanol (Visipaque 320) 100 ml STK-MED ONCE .ROUTE ; Start 11/09/18 at 07:15; Stop 11/09/18 at 07:16; Status DC Lidocaine/Sodium Bicarbonate (Buffered Lidocaine 1%) 3 ml STK-MED ONCE .ROUTE ; Start 11/09/18 at 07:15; Stop 11/09/18 at 07:16; Status DC Heparin Sodium/ Sodium Chloride 1,000 ml @ As Directed STK-MED ONCE .ROUTE ; Start 11/09/18 at 07:15; Stop 11/09/18 at 07:16; Status DC Iodixanol (Visipaque 320) 100 ml STK-MED ONCE .ROUTE ; Start 11/09/18 at 07:44; Stop 11/09/18 at 07:45; Status DC Iodixanol (Visipaque 320) 50 ml STK-MED ONCE .ROUTE ; Start 11/09/18 at 07:44; Stop 11/09/18 at 07:45; Status DC Iodixanol (Visipaque 320) 100 ml STK-MED ONCE .ROUTE ; Start 11/09/18 at 07:47; Stop 11/09/18 at 07:48; Status DC Midazolam HCl (Versed) 2 mg STK-MED ONCE .ROUTE ; Start 11/09/18 at 07:48; Stop 11/09/18 at 07:49; Status DC Fentanyl Citrate (Fentanyl 2ml Vial) 100 mcg STK-MED ONCE .ROUTE ; Start at 07:48; Stop 11/09/18 at 07:49; Status DC Heparin Sodium (Porcine) (Heparin Sodium) 10,000 unit STK-MED ONCE .ROUTE ; Start 11/09/18 at 08:03; Stop 11/09/18 at 08:04; Status DC Diphenhydramine HCl (Benadryl) 50 mg STK-MED ONCE .ROUTE ; Start 11/09/18 at 08: 28; Stop 11/09/18 at 08:29; Status DC Hydromorphone HCl (Dilaudid) 2 mg 1X ONCE IV Last administered on 11/09/18at 10 :43; Start 11/09/18 at 08:30; Stop 11/09/18 at 08:31; Status DC Heparin Sodium/ Sodium Chloride 500 ml @ As Directed STK-MED ONCE .ROUTE ; Start 11/09/18 at 08:59; Stop 11/09/18 at 09:00; Status DC Iodixanol (Visipaque 320) 100 ml STK-MED ONCE .ROUTE ; Start 11/09/18 at 09:04; Stop 11/09/18 at 09:05; Status DC Heparin Sodium/ Sodium Chloride (HEPARIN for ARTERIAL LINE FLUSH) 1,000 unit 1X ONCE IART Last administered on 11/09/18 10:40; Start 11/09/18 at 09:15; Stop 11/09/18 at 09:16; Status DC Heparin Sodium/ Sodium Chloride (HEPARIN for ARTERIAL LINE FLUSH) 1,000 unit 1X ONCE IART Last administered on 11/09/18 10:40; Start 11/09/18 at 09:15; Stop 11/09/18 at 09:16; Status DC Lidocaine/Sodium Bicarbonate (Buffered Lidocaine 1%) 6 ml 1X ONCE IJ Last administered on 11/09/18 10:42; Start 11/09/18 at 09:15; Stop 11/09/18 at 09:16 ; Status DC Midazolam HCl (Versed) 2 mg 1X ONCE IV Last administered on 11/09/18 10:43; Start 11/09/18 at 09:15; Stop 11/09/18 at 09:16; Status DC Fentanyl Citrate (Fentanyl 2ml Vial) 100 mcg 1X ONCE IV Last administered on 10:44; Start 11/09/18 at 09:15; Stop 11/09/18 at 09:16; Status DC Iodixanol (Visipaque 320) 100 ml 1X ONCE IART Last administered on 11/09/18 10:44; Start 11/09/18 at 09:15; Stop 11/09/18 at 09:16; Status DC Heparin Sodium (Porcine) (Heparin Sodium) 7,500 unit 1X ONCE IV Last administered on 11/09/18 10:47; Start 11/09/18 at 09:15; Stop 11/09/18 at 09:16 ; Status DC Diphenhydramine HCl (Benadryl) 50 mg 1X ONCE IVP Last administered on 10:44; Start 11/09/18 at 09:15; Stop 11/09/18 at 09:16; Status DC Iodixanol (Visipaque 320) 50 ml 1X ONCE IART Last administered on 11/09/18 10 :45; Start 11/09/18 at 09:15; Stop 11/09/18 at 09:16; Status DC Info (CONTRAST GIVEN -- Rx MONITORING) 1 each PRN DAILY PRN MC SEE COMMENTS; Start 11/09/18 at 09:15; Stop 11/11/18 at 09:14; Status DC Heparin Sodium/ Sodium Chloride (HEPARIN for ARTERIAL LINE FLUSH) 1,000 unit 1X ONCE IV Last administered on 11/09/18 10:41; Start 11/09/18 at 09:30; Stop 11/09/18 at 09:31; Status DC Heparin Sodium/ Sodium Chloride (HEPARIN for ARTERIAL LINE FLUSH) 1,000 unit 1X ONCE IV Last administered on 11/09/18 10:42; Start 11/09/18 at 09:30; Stop 11/09/18 at 09:31; Status DC Iodixanol (Visipaque 320) 100 ml STK-MED ONCE .ROUTE ; Start 11/09/18 at 09:41; Stop 11/09/18 at 09:42; Status DC Midazolam HCl (Versed) 2 mg STK-MED ONCE .ROUTE ; Start 11/09/18 at 09:50; Stop 11/09/18 at 09:51; Status DC Heparin Sodium/ Sodium Chloride 500 ml @ As Directed STK-MED ONCE .ROUTE ; Start 11/09/18 at 09:56; Stop 11/09/18 at 09:57; Status DC Iodixanol (Visipaque 320) 50 ml STK-MED ONCE .ROUTE ; Start 11/09/18 at 10:00; Stop 11/09/18 at 10:01; Status DC Clopidogrel Bisulfate (Plavix) 300 mg 1X ONCE PO Last administered on 18:19; Start 11/09/18 at 12:15; Stop 11/09/18 at 12:16; Status DC Clopidogrel Bisulfate (Plavix) 75 mg 1X ONCE PO Last administered on 19:53; Start 11/10/18 at 08:00; Stop 11/10/18 at 08:01; Status DC Albuterol Sulfate (Ventolin Neb Soln) 2.5 mg PRN Q6HRS PRN INH SHORTNESS OF BREATH; Start 11/09/18 at 14:30 Amlodipine Besylate (Norvasc) 10 mg PRN DAILY PRN PO HYPERTENSION, SEE COMMENTS ; Start 11/09/18 at 14:30 Aspirin (Ecotrin) 81 mg DAILY PO Last administered on 11/11/18 08:51; Start at 09:00 Cinacalcet (Sensipar) 30 mg DAILYWSUP PO Last administered on 11/11/18 08:51; Start 11/09/18 at 17:00 Clonidine HCl (Catapres Tts-2) 1 patch WEEKLY TD Last administered on at 17:00; Start 11/10/18 at 09:00 Clonidine HCl (Catapres) 0.2 mg BID PO ; Start 11/09/18 at 21:00; Status UNV Clopidogrel Bisulfate (Plavix) 75 mg DAILY PO Last administered on 11/11/18 08 :51; Start 11/11/18 at 09:00 Fentanyl (Duragesic 25mcg/ Hr Patch) 1 patch Q72H TD ; Start 11/09/18 at 15:00 Ferrous Sulfate (Feosol) 325 mg DAILY PO Last administered on 11/11/18 08:51; Start 11/09/18 at 15:00 Furosemide (Lasix) 40 mg DAILY PO Last administered on 11/11/18 08:51; Start 11/09/18 at 15:00 Sevelamer Carbonate (Renvela) 1,600 mg TIDWMEALHC PO Last administered on 08:50; Start 11/09/18 at 17:00 Calcium Acetate (Phoslo) 1,334 mg TIDWMEALS PO Last administered on 2/21/19at 08:52; Start 11/09/18 at 17:00 Losartan Potassium (Cozaar) 100 mg DAILY PO Last administered on 11/11/18 08: 52; Start 11/09/18 at 15:00 Atorvastatin Calcium (Lipitor) 5 mg QHS PO Last administered on 11/10/18at 20:42 ; Start 11/09/18 at 21:00 Vitamin B Complex/ Vitamin C (Hyacinth-Brad) 1 tab DAILY PO Last administered on at 08:52; Start 11/09/18 at 15:00 Sodium Chloride 1,000 ml @ 1,000 mls/hr Q1H PRN IV hypotension; Start 11/10/18 at 10:45; Stop 11/10/18 at 16:44; Status DC Sodium Chloride 1,000 ml @ 400 mls/hr Q2H30M PRN IV PATENCY; Start 11/10/18 at 10:45; Stop 11/10/18 at 22:44; Status DC Info (PHARMACY MONITORING -- do not chart) 1 each PRN DAILY PRN MC SEE COMMENTS ; Start 11/10/18 at 10:45; Stop 11/10/18 at 10:49; Status DC Info (PHARMACY MONITORING -- do not chart) 1 each PRN DAILY PRN MC SEE COMMENTS ; Start 11/10/18 at 10:45 Oxycodone/ Acetaminophen (Percocet 5/325) 1 tab PRN Q4HRS PRN PO PAIN SEVERE Last administered on 11/11/18at 08:50; Start 11/10/18 at 16:00 Active Scripts Active Proair Hfa Inhaler (Albuterol Sulfate) 8.5 Gm Hfa.aer.ad 1 Puff INH PRN Q6HRS PRN 14 Days Doxycycline Hyclate 100 Mg Tablet 100 Mg PO BID 7 Days Reported FENTANYL 25mcg/hr (Fentanyl) 1 Each Patch.td72 1 Patch TD Q72H Clopidogrel (Clopidogrel Bisulfate) 75 Mg Tablet 1 Tab PO DAILY Catapres-Tts 2 (Clonidine) 1 Each Patch.tdwk 1 Each TD WEEKLY Clonidine Hcl 0.2 Mg Tablet 0.2 Mg PO BID Dialyvite [place] D Tablet (Multivitamin, Min Cmb#25/Fa/D3) 1 Each Tablet 1 Each PO DAILY Renvela (Sevelamer Carbonate) 800 Mg Tablet 2 Tab PO TIDWMEALHC Sensipar (Cinacalcet Hcl) 30 Mg Tablet 1 Tab PO DAILYWSUP Calcium Acetate 667 Mg Tablet 1,334 Mg PO TIDWMEALS Lovastatin 10 Mg Tablet 10 Mg PO HS Losartan Potassium 100 Mg Tablet 100 Mg PO DAILY Amlodipine Besylate 10 Mg Tablet 10 Mg PO PRN DAILY PRN Ferrous Sulfate 325 Mg Tablet 1 Tab PO DAILY Lasix (Furosemide) 40 Mg Tablet 1 Tab PO DAILY Aspir 81 (Aspirin) 81 Mg Tablet.dr 1 Tab PO DAILY Vitals/I & O Vital Sign - Last 24 Hours 11/10/18 11/10/18 11/10/18 11/10/18 15:00 16:26 16:27 19:00 Temp 97.4 97.7 97.4 97.7 Pulse 87 87 88 Resp 18 20 20 B/P (MAP) 104/35 (58) 104/35 106/36 (59) Pulse Ox 99 99 97 O2 Delivery Room Air Room Air Room Air 11/10/18 11/10/18 11/10/18 11/10/18 20:00 22:25 23:00 23:25 Temp 97.9 97.9 Pulse 87 Resp 20 20 20 B/P (MAP) 102/35 (57) Pulse Ox 97 92 95 O2 Delivery Room Air Room Air Room Air Room Air 11/11/18 11/11/18 11/11/18 11/11/18 03:00 07:00 08:00 08:52 Temp 98.5 98.4 98.5 98.4 Pulse 75 73 Resp 20 18 B/P (MAP) 103/34 (57) 105/43 (63) 105/43 Pulse Ox 95 95 O2 Delivery Room Air Room Air Room Air Intake and Output 11/10/18 11/10/18 11/11/18 15:00 23:00 07:00 Intake Total 300 ml 120 ml Output Total 0 ml Balance 300 ml 120 ml HERRERA RODRIGUEZ MD Nov 11, 2018 11:47
[2018-11-11 15:00] VITALS: BP 101/45
--- NOTE | 2018-11-11 15:03 | PDOC ---
SUBJECTIVE ROS No complaints OBJECTIVE Vital Signs Vital Signs Date Time Temp Pulse Resp B/P (MAP) Pulse Ox O2 Delivery O2 Flow Rate FiO2 11/11/18 11:00 98.2 76 18 100/42 (61) 92 Room Air 98.2 I & 0 Intake and Output 11/11/18 07:00 Intake Total 420 ml Output Total 0 ml Balance 420 ml Intake Oral 420 ml Output Urine Total 0 ml # Bowel Movements 1 PHYSICAL EXAM Physical Exam General: Alert, Oriented X3, Cooperative, No acute distress HEENT: EOMI, Mucous membr. moist/pink Neck Supple Lungs: Clear to auscultation, Non labored Heart: S1S2, no gallops, no murmurs Abdomen: Normal bowel sounds, Soft Extremities: No edema, Skin: No rash Neuro: Grossly normal - No [place] DIAGNOSIS/ASSESSMENT Assessment & Plan ESRD - On HD - [facility]- [place] [place]- Dr. 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 (Home meds) Anemia- Hgn> 10 No indication for FLAQUITO DM2 PAD- Recent admission for Rt LE pain Ischemic hand- better s/p left subclavian artery stenting with improved circulation, patent upper arm AV access no surgical intervention needed as per vascular COMMENT/RELEVANT DATA Meds Current Medications Medications (Trade) Dose Ordered Sig/Virgil Start Time Stop Time Status Last Admin Dose Admin Albuterol Sulfate (Ventolin Neb Soln) 2.5 mg PRN Q6HRS PRN 11/09/18 14:30 Amlodipine Besylate (Norvasc) 10 mg PRN DAILY PRN 11/09/18 14:30 Aspirin (Ecotrin) 81 mg DAILY 11/10/18 09:00 11/11/18 08:51 81 MG Atorvastatin Calcium (Lipitor) 5 mg QHS 11/09/18 21:00 11/10/18 20:42 5 MG Calcium Acetate (Phoslo) 1,334 mg TIDWMEALS 11/09/18 17:00 11/11/18 12:32 1,334 MG Cinacalcet (Sensipar) 30 mg DAILYWSUP 11/09/18 17:00 11/11/18 08:51 30 MG Clonidine HCl (Catapres Tts-2) 1 patch WEEKLY 11/10/18 09:00 11/10/18 17:00 1 PATCH Clonidine HCl (Catapres) 0.2 mg BID 11/09/18 21:00 UNV Clopidogrel Bisulfate (Plavix) 75 mg DAILY 11/11/18 09:00 11/11/18 08:51 75 MG Diclofenac Sodium (Voltaren) 1 gasper BID 11/11/18 14:30 Diphenhydramine HCl (Benadryl) 50 mg 1X ONCE 11/09/18 09:15 11/09/18 09:16 DC 11/09/18 10:44 50 MG Fentanyl (Duragesic 25mcg/ Hr Patch) 1 patch Q72H 11/09/18 15:00 Fentanyl Citrate (Fentanyl 2ml Vial) 100 mcg 1X ONCE 11/09/18 09:15 11/09/18 09:16 DC 11/09/18 10:44 100 MCG Ferrous Sulfate (Feosol) 325 mg DAILY 11/09/18 15:00 11/11/18 08:51 325 MG Furosemide (Lasix) 40 mg DAILY 11/09/18 15:00 11/11/18 08:51 40 MG Heparin Sodium (Porcine) (Heparin Sodium) 7,500 unit 1X ONCE 11/09/18 09:15 11/09/18 09:16 DC 11/09/18 10:47 10,000 UNIT Heparin Sodium/ Dextrose 500 ml @ 0 mls/hr CONT PRN 11/09/18 05:45 11/09/18 12:40 DC 11/09/18 06:00 20 MLS/HR Heparin Sodium/ Sodium Chloride 500 ml @ As Directed STK-MED ONCE 11/09/18 09:56 11/09/18 09:57 DC Heparin Sodium/ Sodium Chloride (HEPARIN for ARTERIAL LINE FLUSH) 1,000 unit 1X ONCE 11/09/18 09:30 11/09/18 09:31 DC 11/09/18 10:42 1,000 UNIT Hydromorphone HCl (Dilaudid) 2 mg 1X ONCE 11/09/18 08:30 11/09/18 08:31 DC 11/09/18 10:43 1.5 MG Info (Anti-Coagulation Monitoring By Pharmacy) 1 each PRN DAILY PRN 11/09/18 05:45 11/09/18 12:41 DC 11/09/18 05:58 1 EACH Info (CONTRAST GIVEN -- Rx MONITORING) 1 each PRN DAILY PRN 11/09/18 09:15 11/11/18 09:14 DC Info (PHARMACY MONITORING -- do not chart) 1 each PRN DAILY PRN 11/10/18 10:45 Iodixanol (Visipaque 320) 50 ml STK-MED ONCE 11/09/18 10:00 11/09/18 10:01 DC Lidocaine/Sodium Bicarbonate (Buffered Lidocaine 1%) 6 ml 1X ONCE 11/09/18 09:15 11/09/18 09:16 DC 11/09/18 10:42 6 ML Lorazepam (Ativan) 0.5 mg 1X ONCE 11/09/18 06:00 11/09/18 06:01 DC 11/09/18 05:57 0.5 MG Losartan Potassium (Cozaar) 100 mg DAILY 11/09/18 15:00 11/11/18 08:52 100 MG Midazolam HCl (Versed) 2 mg STK-MED ONCE 11/09/18 09:50 11/09/18 09:51 DC Multi-Ingred Cream/Lotion/Oil/ Oint (Hydrocerin Cream) 1 gasper BID 11/11/18 14:00 Oxycodone/ Acetaminophen (Percocet 5/325) 1 tab PRN Q4HRS PRN 11/10/18 16:00 11/11/18 08:50 1 TAB Sevelamer Carbonate (Renvela) 1,600 mg TIDWMEALHC 11/09/18 17:00 11/11/18 12:32 1,600 MG Sodium Chloride 1,000 ml @ 400 mls/hr Q2H30M PRN 11/10/18 10:45 11/10/18 22:44 DC Vitamin B Complex/ Vitamin C (Hyacinth-Brad) 1 tab DAILY 11/09/18 15:00 11/11/18 08:52 1 TAB Lab Laboratory Tests Test 11/10/18 16:57 11/10/18 20:34 11/11/18 06:10 11/11/18 07:40 Glucose (Fingerstick) 93 mg/dL (70-99) 119 mg/dL (70-99) 100 mg/dL (70-99) White Blood Count 9.2 x10^3/uL (4.0-11.0) Red Blood Count 3.37 x10^6/uL (3.50-5.40) Hemoglobin 9.7 g/dL (12.0-15.5) Hematocrit 30.6 % (36.0-47.0) Mean Corpuscular Volume 91 fL (79-100) Mean Corpuscular Hemoglobin 29 pg (25-35) Mean Corpuscular Hemoglobin Concent 32 g/dL (31-37) Red Cell Distribution Width 16.2 % (11.5-14.5) Platelet Count 296 x10^3/uL (140-400) Neutrophils (%) (Auto) 77 % (31-73) Lymphocytes (%) (Auto) 10 % (24-48) Monocytes (%) (Auto) 10 % (0-9) Eosinophils (%) (Auto) 2 % (0-3) Basophils (%) (Auto) 1 % (0-3) Neutrophils # (Auto) 7.1 x10^3uL (1.8-7.7) Lymphocytes # (Auto) 0.9 x10^3/uL (1.0-4.8) Monocytes # (Auto) 0.9 x10^3/uL (0.0-1.1) Eosinophils # (Auto) 0.2 x10^3/uL (0.0-0.7) Basophils # (Auto) 0.0 x10^3/uL (0.0-0.2) Test 11/11/18 08:10 11/11/18 11:34 Sodium Level 139 mmol/L (136-145) Potassium Level 4.5 mmol/L (3.5-5.1) Chloride Level 97 mmol/L (98-107) Carbon Dioxide Level 30 mmol/L (21-32) Anion Gap 12 (6-14) Blood Urea Nitrogen 23 mg/dL (7-20) Creatinine 6.9 mg/dL (0.6-1.0) Estimated GFR (Cockcroft-Gault) 6.8 BUN/Creatinine Ratio 3 (6-20) Glucose Level 97 mg/dL (70-99) Calcium Level 8.8 mg/dL (8.5-10.1) Total Bilirubin 0.4 mg/dL (0.2-1.0) Aspartate Amino Transf (AST/SGOT) 38 U/L (15-37) Alanine Aminotransferase (ALT/SGPT) 22 U/L (14-59) Alkaline Phosphatase 114 U/L (46-116) Total Protein 7.2 g/dL (6.4-8.2) Albumin 2.7 g/dL (3.4-5.0) Albumin/Globulin Ratio 0.6 (1.0-1.7) Glucose (Fingerstick) 123 mg/dL (70-99) Results All relevant outside records, renal labs, imaging studies, telemetry/EKG's were reviewed. TOMMY LUND MD Nov 11, 2018 15:03
--- NOTE | 2018-11-11 16:29 | NUR ---
SW following pt. Spoke with pt regarding PT/OT recommendation for SNU. Pt reported she plans on going home upon dc and refused SNU. SW encouraged pt to continue to participate with PT/OT for continued strength. Pt states she was 'doing well for her self at home' prior hospital admission. SW will f/u with family in the morning.
[2018-11-11] MEDS: DICLOFENAC SODIUM 1% TOPICAL GEL 100GM TUBE. TP SCH ×2 (17:03→20:19)
[2018-11-11] MEDS: MINERAL OIL/PETROLATUM TOPICAL CREAM 113GM JAR. TP SCH ×2 (17:03→20:18)
[2018-11-11 19:00] VITALS: BP 113/34
--- NOTE | 2018-11-11 19:33 | CONS ---
DATE OF CONSULTATION: 11/11/2018 ATTENDING PHYSICIAN: Dr. Dimas. The patient was seen at the request of Dr. Dimas for about left shoulder area pain. DICTATION ENDS AT THIS POINT CASH WRIGHT MD DR: ALDO/ana maria JOB#: [id number] / [id number]
--- NOTE | 2018-11-11 20:01 | CONS ---
DATE OF CONSULTATION: 11/11/2018 ATTENDING PHYSICIAN: Dr. Dimas. The patient was seen at the request of Dr. Dimas about left shoulder pain. HISTORY OF PRESENT ILLNESS: This is an 88-year-old female admitted on 11/09/2018, with arm pain and weakness. The patient with known previous deep venous thrombosis, clots, vascular issues, presented with left thumb pain and numbness, prior no stenosis and thrombosis. The patient is with known coronary artery disease, hypertension, hyperlipidemia, previous pulmonary emboli, anemia, chronic renal failure on hemodialysis, diabetes mellitus, family history of diabetes with her mother. She worked in the [employer] Department at [employer] in [place] for about 43 years, has been living right now with her granddaughter in [place], [place], had 4 stairs with railing to get into the house. She has been using a walker to get around. She was in and out of the hospitals and detention care unit since May, almost admitted every month, twice last month. ALLERGIES: The patient is not known allergic to any medication. Since admission, she had an aortogram, right ELISA stent and DCD left upper extremity arteriogram, shuntogram, cerebral arteriogram, left subclavian stent placed for treatment of cold left hand and critical limb ischemia. The patient denies any shoulder pain. She admits some right foot pain. She had left subclavian artery stenting with improved circulation patent upper arm AV access. PHYSICAL EXAMINATION: Today revealed an elderly female. She is alert, oriented to time, place, person and circumstance and follows commands appropriately, moves all 4 extremities voluntarily where she had 4+/5 grade muscle strength and deep tendon reflexes are 1 to 2+ and symmetrical with absent ankle jerks. She had dry scaly skin of her feet and distal parts of the legs still cold, right foot distal half both dorsal and plantar aspect. We could not obtain any dorsalis pedis or posterior tibial artery pulsation even using Doppler. The patient had mild crepitus on range of motion of her knee joint without any obvious knee joint effusion and she had painful range of motion of both hip joints. She had decreased sensory perception in her feet when compared to proximal aspects of her lower extremities. She had some tenderness to palpation over right tendo Achilles and anterolateral aspect of her right ankle. No pain on range of motion of both shoulders. No tenderness to palpation at both shoulders. She is independent with bed mobility and transfers. Once up, she can walk using a roller walker without any loss of balance. She gets tired easily. ASSESSMENT: An elderly female with diabetes mellitus, hypertension, hyperlipidemia, end-stage renal disease on hemodialysis, degenerative joint disease of both knees without much pain, admitted with cold left hand with critical limb ischemia, had Interventional Radiology do stenting with significant help. She also had clinical evidence of peripheral vascular disease of right lower extremity with some tendinitis, right ankle area. Again, no problem with her shoulders. RECOMMENDATION: To get her up as tolerated. Her granddaughter feels she may have to go to detention care unit as she was in the hospital in the last few times and went home and came right back with 2 admissions in September and one admission this month. Agree with the plan for physical therapy and occupational therapy to obtain Rooke boot to help with her right foot edema. Dr. Dimas, I appreciate asking me to participate in the care of this interesting patient. I will be glad to follow her with you as needed for her rehabilitation. CASH WRIGHT MD DR: ALDO/ana maria JOB#: [id number] / [id number]
[2018-11-11] MEDS: ATORVASTATIN CALCIUM 10 MG TABLET. PO SCH (20:18)
[2018-11-11 23:00] VITALS: BP 103/40
[2018-11-12 03:00] VITALS: BP 95/31
[2018-11-12 07:00] VITALS: BP 100/40
[2018-11-12] MEDS: SEVELAMER CARBONATE 800 MG TABLET. PO SCH ×4 (09:06→21:07)
[2018-11-12] MEDS: FOLIC/VIT B COMP W-C (RENAL) TABLET. PO SCH (09:06)
[2018-11-12] MEDS: CLOPIDOGREL BISULFATE 75 MG TABLET PO SCH (09:06)
[2018-11-12] MEDS: FERROUS SULFATE 325 MG TABLET. PO SCH (09:06)
[2018-11-12] MEDS: FUROSEMIDE 40 MG TABLET. PO SCH (09:06)
[2018-11-12] MEDS: CALCIUM ACETATE 667 MG CAPSULE PO SCH ×3 (09:06→17:08)
[2018-11-12] MEDS: ASPIRIN ENTERIC COATED 81 MG TABLET.DR. PO SCH (09:06)
[2018-11-12] MEDS: LOSARTAN POTASSIUM 50 MG TABLET. PO SCH (09:07)
[2018-11-12] MEDS: MINERAL OIL/PETROLATUM TOPICAL CREAM 113GM JAR. TP SCH ×2 (09:08→21:09)
[2018-11-12] MEDS: DICLOFENAC SODIUM 1% TOPICAL GEL 100GM TUBE. TP SCH ×2 (09:12→21:08)
[2018-11-12] MEDS: fentaNYL 25MCG/HR PATCH 1 PATCH PATCH.TD72 TD SCH (09:12)
[2018-11-12] MEDS: oxyCODONE/APAP 5/325 1 TAB TABLET PO PRN ×3 (09:15→21:08)
--- NOTE | 2018-11-12 10:16 | DISCH ---
DISCHARGE WITH HOME HEALTH DISCHARGE INFORMATION: Discharge Date: Nov 12, 2018 Final Diagnosis: Problems Medical Problems: (1) AV graft malfunction Status: Acute Condition on Discharge: Stable CODE STATUS: Code Status: Full HOME HEALTH: Face to Face: I certify this patient is under my care and that I, or a nurse practitioner or physician's insurance account assistant working with me, had a face to face encounter that meets the physician face to face encounter requirements with this patient on 11/12/18 Medical Complications: Other (ESRD) Physical Therapy For: Evalulation/Treatment Occupational Therapy For: Evaluation/Treatment POST DISCHARGE ORDERS: Activity Instructions for Disc: Activity as tolerated Weight Bearing Status after Di: As tolerated DIET AFTER DISCHARGE: hepatic Wound/Incision Care: Do not change dressing CHECKS AFTER DISCHARGE: Checks after discharge: Check blood press - daily, Check blood sugar, ac/hs, Check your Temp as needed, Weigh Yourself Daily FOLLOW-UP: Follow up with: primary care < 2 weeks TREATMENT/EQUIPMENT ORDERS: Adaptive Equipment Issued: None CERTIFICATION STATEMENT: Certification Statement: Certification Statement: Based on the above finding, I certify that this patient is confined to the home and needs intermittent custodial care, physical therapy and/or speech therapy, or continues to need occupational therapy.~ This patient is under my care, and I have initiated the establishment of the plan of care.~ This patient will be followed by myself or a community physician who will periodically review the plan of care. Home Meds Active Scripts Albuterol Sulfate (PROAIR HFA INHALER) 8.5 Gm Hfa.aer.ad, 1 PUFF INH PRN Q6HRS PRN for SHORTNESS OF BREATH for 14 Days, INHALER 0 Refills Prov:RADHA BHARDWAJ MD 08/15/18 Doxycycline Hyclate (DOXYCYCLINE HYCLATE) 100 Mg Tablet, 100 MG PO BID for 7 Days, #14 TAB Prov:SATHYA ANTHONY MD 11/04/17 Reported Medications Fentanyl (FENTANYL 25mcg/hr) 1 Each Patch.td72, 1 PATCH TD Q72H for PAIN, #5 PATCH 0 Refills 11/02/18 Clopidogrel Bisulfate (CLOPIDOGREL) 75 Mg Tablet, 1 TAB PO DAILY for PVD, #90 TAB 1 Refill 10/27/18 Clonidine (CATAPRES-TTS 2) 1 Each Patch.tdwk, 1 EACH TD WEEKLY, PATCH 11/03/17 Clonidine Hcl (CLONIDINE HCL) 0.2 Mg Tablet, 0.2 MG PO BID, TAB 11/02/17 Multivitamin, Min Cmb#25/Fa/D3 (DIALYVITE SUPREME D TABLET) 1 Each Tablet, 1 EACH PO DAILY, TAB 01/19/17 Sevelamer Carbonate (RENVELA) 800 Mg Tablet, 2 TAB PO TIDWMEALHC, #540 TAB 3 Refills 01/19/17 Cinacalcet Hcl (SENSIPAR) 30 Mg Tablet, 1 TAB PO DAILYWSUP, #90 TAB 3 Refills 01/17/17 Calcium Acetate (CALCIUM ACETATE) 667 Mg Tablet, 1334 MG PO TIDWMEALS for DIALYSIS PATIENTS, CAP 01/17/17 Lovastatin (LOVASTATIN) 10 Mg Tablet, 10 MG PO HS, TAB 07/03/16 Losartan Potassium (LOSARTAN POTASSIUM) 100 Mg Tablet, 100 MG PO DAILY, TAB 10/27/15 Amlodipine Besylate (AMLODIPINE BESYLATE) 10 Mg Tablet, 10 MG PO PRN DAILY PRN for HYPERTENSION, SEE COMMENTS, TAB 10/27/15 Ferrous Sulfate (FERROUS SULFATE) 325 Mg Tablet, 1 TAB PO DAILY, #30 TAB 3 Refills 10/27/15 Furosemide (LASIX) 40 Mg Tablet, 1 TAB PO DAILY, #90 TAB 1 Refill 10/27/15 Aspirin (ASPIR 81) 81 Mg Tablet., 1 TAB PO DAILY, #30 TAB 5 Refills 10/27/15 HERRERA RODRIGUEZ MD Nov 12, 2018 10:16
--- NOTE | 2018-11-12 10:40 | NUR ---
[facility] following pt. SW left a voice mail to pt's daughter requesting a call back.
[2018-11-12 11:00] VITALS: BP 110/35
[2018-11-12] MEDS ORDERED: IV NORMAL SALINE 1000ML BAG 1,000 ML IV PRN ×2 (13:10)
[2018-11-12] MEDS ORDERED: diphenhydrAMINE 50 MG/ML VIAL IV PRN ×2 (13:15)
[2018-11-12] MEDS ORDERED: ALBUMIN HUMAN 25% 200 ML IV PRN (13:15)
[2018-11-12] MEDS ORDERED: ACETAMINOPHEN 500 MG TABLET PO PRN (13:15)
[2018-11-12] MEDS ORDERED: DIALYSIS PATIENT. MC PRN (13:15)
--- NOTE | 2018-11-12 14:01 | PDOC ---
SUBJECTIVE ROS No complaints , seen on HD OBJECTIVE Vital Signs Vital Signs Date Time Temp Pulse Resp B/P (MAP) Pulse Ox O2 Delivery O2 Flow Rate FiO2 11/12/18 11:00 97.4 70 18 110/35 (60) 94 Room Air 97.4 11/11/18 09:50 2.0 I & 0 Intake and Output 11/12/18 06:59 Intake Total 210 ml Output Total 0 ml Balance 210 ml Intake Oral 210 ml Output Urine Total 0 ml # Voids 1 PHYSICAL EXAM Physical Exam General: Alert, Oriented X3, Cooperative, No acute distress HEENT: EOMI, Mucous membr. moist/pink Neck Supple Lungs: Clear to auscultation, Non labored Heart: S1S2, no gallops, no murmurs Abdomen: Normal bowel sounds, Soft Extremities: No edema, Skin: No rash Neuro: Grossly normal - No [place] DIAGNOSIS/ASSESSMENT Assessment & Plan ESRD - On HD - MWF- [facility]- Dr. 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 and Phoslo/Renvela (Home meds) Anemia- Hgn> 10 No indication for FLAQUITO DM2 PAD- Recent admission for Rt LE pain Ischemic hand- better s/p left subclavian artery stenting with improved circulation, patent upper arm AV access no surgical intervention needed as per vascular COMMENT/RELEVANT DATA Meds Current Medications Medications (Trade) Dose Ordered Sig/Virgil Start Time Stop Time Status Last Admin Dose Admin Acetaminophen (Tylenol) 500 mg 1X PRN PRN 11/12/18 13:15 11/13/18 13:14 Albumin Human 200 ml @ 200 mls/hr 1X PRN PRN 11/12/18 13:15 11/12/18 19:14 Albuterol Sulfate (Ventolin Neb Soln) 2.5 mg PRN Q6HRS PRN 11/09/18 14:30 Amlodipine Besylate (Norvasc) 10 mg PRN DAILY PRN 11/09/18 14:30 Aspirin (Ecotrin) 81 mg DAILY 11/10/18 09:00 11/12/18 09:06 81 MG Atorvastatin Calcium (Lipitor) 5 mg QHS 11/09/18 21:00 11/11/18 20:18 5 MG Calcium Acetate (Phoslo) 1,334 mg TIDWMEALS 11/09/18 17:00 11/12/18 11:13 1,334 MG Cinacalcet (Sensipar) 30 mg DAILYWSUP 11/09/18 17:00 11/11/18 08:51 30 MG Clonidine HCl (Catapres Tts-2) 1 patch WEEKLY 11/10/18 09:00 11/10/18 17:00 1 PATCH Clonidine HCl (Catapres) 0.2 mg BID 11/09/18 21:00 UNV Clopidogrel Bisulfate (Plavix) 75 mg DAILY 11/11/18 09:00 11/12/18 09:06 75 MG Diclofenac Sodium (Voltaren) 1 gasper BID 11/11/18 14:30 11/12/18 09:12 1 GASPER Diphenhydramine HCl (Benadryl) 25 mg 1X PRN PRN 11/12/18 13:15 11/13/18 13:14 Fentanyl (Duragesic 25mcg/ Hr Patch) 1 patch Q72H 11/09/18 15:00 Fentanyl Citrate (Fentanyl 2ml Vial) 100 mcg 1X ONCE 11/09/18 09:15 11/09/18 09:16 DC 11/09/18 10:44 100 MCG Ferrous Sulfate (Feosol) 325 mg DAILY 11/09/18 15:00 11/12/18 09:06 325 MG Furosemide (Lasix) 40 mg DAILY 11/09/18 15:00 11/12/18 09:06 40 MG Heparin Sodium (Porcine) (Heparin Sodium) 7,500 unit 1X ONCE 11/09/18 09:15 11/09/18 09:16 DC 11/09/18 10:47 10,000 UNIT Heparin Sodium/ Dextrose 500 ml @ 0 mls/hr CONT PRN 11/09/18 05:45 11/09/18 12:40 DC 11/09/18 06:00 20 MLS/HR Heparin Sodium/ Sodium Chloride 500 ml @ As Directed STK-MED ONCE 11/09/18 09:56 11/09/18 09:57 DC Heparin Sodium/ Sodium Chloride (HEPARIN for ARTERIAL LINE FLUSH) 1,000 unit 1X ONCE 11/09/18 09:30 11/09/18 09:31 DC 11/09/18 10:42 1,000 UNIT Hydromorphone HCl (Dilaudid) 2 mg 1X ONCE 11/09/18 08:30 11/09/18 08:31 DC 11/09/18 10:43 1.5 MG Info (Anti-Coagulation Monitoring By Pharmacy) 1 each PRN DAILY PRN 11/09/18 05:45 11/09/18 12:41 DC 11/09/18 05:58 1 EACH Info (CONTRAST GIVEN -- Rx MONITORING) 1 each PRN DAILY PRN 11/09/18 09:15 11/11/18 09:14 DC Info (PHARMACY MONITORING -- do not chart) 1 each PRN DAILY PRN 11/12/18 13:15 UNV Iodixanol (Visipaque 320) 50 ml STK-MED ONCE 11/09/18 10:00 11/09/18 10:01 DC Lidocaine/Sodium Bicarbonate (Buffered Lidocaine 1%) 6 ml 1X ONCE 11/09/18 09:15 11/09/18 09:16 DC 11/09/18 10:42 6 ML Lorazepam (Ativan) 0.5 mg 1X ONCE 11/09/18 06:00 11/09/18 06:01 DC 11/09/18 05:57 0.5 MG Losartan Potassium (Cozaar) 100 mg DAILY 11/09/18 15:00 11/12/18 09:07 100 MG Midazolam HCl (Versed) 2 mg STK-MED ONCE 11/09/18 09:50 11/09/18 09:51 DC Multi-Ingred Cream/Lotion/Oil/ Oint (Hydrocerin Cream) 1 gasper BID 11/11/18 14:00 11/12/18 09:08 1 GASPER Oxycodone/ Acetaminophen (Percocet 5/325) 1 tab PRN Q4HRS PRN 11/10/18 16:00 11/12/18 09:15 1 TAB Sevelamer Carbonate (Renvela) 1,600 mg TIDWMEALHC 11/09/18 17:00 11/12/18 11:13 1,600 MG Sodium Chloride 1,000 ml @ 400 mls/hr Q2H30M PRN 11/12/18 13:10 11/13/18 01:09 Vitamin B Complex/ Vitamin C (Hyacinth-Brad) 1 tab DAILY 11/09/18 15:00 11/12/18 09:06 1 TAB Lab Laboratory Tests Test 11/11/18 17:01 11/11/18 20:32 11/12/18 07:27 11/12/18 10:58 Glucose (Fingerstick) 89 mg/dL (70-99) 107 mg/dL (70-99) 76 mg/dL (70-99) 96 mg/dL (70-99) Results All relevant outside records, renal labs, imaging studies, telemetry/EKG's were reviewed. TOMMY LUND MD Nov 12, 2018 14:01
--- NOTE | 2018-11-12 15:58 | NUR ---
SW following pt. Spoke with pt regarding SNU and informed her there is dc order for HH today. Pt now agreeable with rehab but also reports she is waiting to hear back from her granddaughter. Pt agreeable with [facility]. [facility] phoned and faxed referral to [facility]. Pt has been accepted pending insurance approval. SW left a voice mail to pt's granddaughter, phone: [phone] requesting a call back. Discussed with RN.
[2018-11-12] MEDS: CINACALCET HCL 30 MG TABLET PO SCH (17:08)
--- NOTE | 2018-11-12 17:42 | PDOC ---
PROGRESS NOTES Subjective Subjective No new complaints. Objective Objective Vital Signs Date Time Temp Pulse Resp B/P (MAP) Pulse Ox O2 Delivery O2 Flow Rate FiO2 11/12/18 15:36 Room Air 11/12/18 11:00 97.4 70 18 110/35 (60) 94 97.4 11/11/18 09:50 2.0 Intake and Output 11/12/18 07:00 Intake Total 210 ml Output Total 0 ml Balance 210 ml Intake Oral 210 ml Output Urine Total 0 ml # Voids 1 Physical Exam Physical Exam She is comfortable sitting up in bedside chair and she continues with coldness of right foot distal part. She is walking with roller walker. Assessment Assessment Problems Medical Problems: (1) AV graft malfunction Status: Acute Plan Plan of Care To SNF when medically stable if she qualifies. Comment Review of Relevant I have reviewed the following items vicente (where applicable) has been applied. Labs Laboratory Tests Test 11/10/18 20:34 11/11/18 06:10 11/11/18 07:40 11/11/18 08:10 Glucose (Fingerstick) 119 mg/dL (70-99) 100 mg/dL (70-99) White Blood Count 9.2 x10^3/uL (4.0-11.0) Red Blood Count 3.37 x10^6/uL (3.50-5.40) Hemoglobin 9.7 g/dL (12.0-15.5) Hematocrit 30.6 % (36.0-47.0) Mean Corpuscular Volume 91 fL (79-100) Mean Corpuscular Hemoglobin 29 pg (25-35) Mean Corpuscular Hemoglobin Concent 32 g/dL (31-37) Red Cell Distribution Width 16.2 % (11.5-14.5) Platelet Count 296 x10^3/uL (140-400) Neutrophils (%) (Auto) 77 % (31-73) Lymphocytes (%) (Auto) 10 % (24-48) Monocytes (%) (Auto) 10 % (0-9) Eosinophils (%) (Auto) 2 % (0-3) Basophils (%) (Auto) 1 % (0-3) Neutrophils # (Auto) 7.1 x10^3uL (1.8-7.7) Lymphocytes # (Auto) 0.9 x10^3/uL (1.0-4.8) Monocytes # (Auto) 0.9 x10^3/uL (0.0-1.1) Eosinophils # (Auto) 0.2 x10^3/uL (0.0-0.7) Basophils # (Auto) 0.0 x10^3/uL (0.0-0.2) Sodium Level 139 mmol/L (136-145) Potassium Level 4.5 mmol/L (3.5-5.1) Chloride Level 97 mmol/L (98-107) Carbon Dioxide Level 30 mmol/L (21-32) Anion Gap 12 (6-14) Blood Urea Nitrogen 23 mg/dL (7-20) Creatinine 6.9 mg/dL (0.6-1.0) Estimated GFR (Cockcroft-Gault) 6.8 BUN/Creatinine Ratio 3 (6-20) Glucose Level 97 mg/dL (70-99) Calcium Level 8.8 mg/dL (8.5-10.1) Total Bilirubin 0.4 mg/dL (0.2-1.0) Aspartate Amino Transf (AST/SGOT) 38 U/L (15-37) Alanine Aminotransferase (ALT/SGPT) 22 U/L (14-59) Alkaline Phosphatase 114 U/L (46-116) Total Protein 7.2 g/dL (6.4-8.2) Albumin 2.7 g/dL (3.4-5.0) Albumin/Globulin Ratio 0.6 (1.0-1.7) Test 11/11/18 11:34 11/11/18 17:01 11/11/18 20:32 11/12/18 07:27 Glucose (Fingerstick) 123 mg/dL (70-99) 89 mg/dL (70-99) 107 mg/dL (70-99) 76 mg/dL (70-99) Test 11/12/18 10:58 11/12/18 17:08 Glucose (Fingerstick) 96 mg/dL (70-99) 110 mg/dL (70-99) Laboratory Tests Test 11/11/18 20:32 11/12/18 07:27 11/12/18 10:58 11/12/18 17:08 Glucose (Fingerstick) 107 mg/dL (70-99) 76 mg/dL (70-99) 96 mg/dL (70-99) 110 mg/dL (70-99) Medications Current Medications Fentanyl Citrate (Fentanyl 2ml Vial) 50 mcg 1X ONCE IV Last administered on at 03:35; Start 11/09/18 at 03:30; Stop 11/09/18 at 03:32; Status DC Fentanyl Citrate (Fentanyl 2ml Vial) 50 mcg PRN Q2HR PRN IV SEVERE PAIN; Start 11/09/18 at 05:45; Stop 11/10/18 at 05:44; Status DC Heparin Sodium/ Dextrose 500 ml @ 0 mls/hr CONT PRN IV SEE I/O RECORD Last administered on 11/09/18at 06:00; Start 11/09/18 at 05:45; Stop 11/09/18 at 12:40 ; Status DC Lorazepam (Ativan) 0.5 mg 1X ONCE IV Last administered on 11/09/18at 05:57; Start 11/09/18 at 06:00; Stop 11/09/18 at 06:01; Status DC Info (Anti-Coagulation Monitoring By Pharmacy) 1 each PRN DAILY PRN MC SEE COMMENTS Last administered on 11/09/18at 05:58; Start 11/09/18 at 05:45; Stop at 12:41; Status DC Iodixanol (Visipaque 320) 100 ml STK-MED ONCE .ROUTE ; Start 11/09/18 at 07:15; Stop 11/09/18 at 07:16; Status DC Lidocaine/Sodium Bicarbonate (Buffered Lidocaine 1%) 3 ml STK-MED ONCE .ROUTE ; Start 11/09/18 at 07:15; Stop 11/09/18 at 07:16; Status DC Heparin Sodium/ Sodium Chloride 1,000 ml @ As Directed STK-MED ONCE .ROUTE ; Start 11/09/18 at 07:15; Stop 11/09/18 at 07:16; Status DC Iodixanol (Visipaque 320) 100 ml STK-MED ONCE .ROUTE ; Start 11/09/18 at 07:44; Stop 11/09/18 at 07:45; Status DC Iodixanol (Visipaque 320) 50 ml STK-MED ONCE .ROUTE ; Start 11/09/18 at 07:44; Stop 11/09/18 at 07:45; Status DC Iodixanol (Visipaque 320) 100 ml STK-MED ONCE .ROUTE ; Start 11/09/18 at 07:47; Stop 11/09/18 at 07:48; Status DC Midazolam HCl (Versed) 2 mg STK-MED ONCE .ROUTE ; Start 11/09/18 at 07:48; Stop 11/09/18 at 07:49; Status DC Fentanyl Citrate (Fentanyl 2ml Vial) 100 mcg STK-MED ONCE .ROUTE ; Start at 07:48; Stop 11/09/18 at 07:49; Status DC Heparin Sodium (Porcine) (Heparin Sodium) 10,000 unit STK-MED ONCE .ROUTE ; Start 11/09/18 at 08:03; Stop 11/09/18 at 08:04; Status DC Diphenhydramine HCl (Benadryl) 50 mg STK-MED ONCE .ROUTE ; Start 11/09/18 at 08: 28; Stop 11/09/18 at 08:29; Status DC Hydromorphone HCl (Dilaudid) 2 mg 1X ONCE IV Last administered on 11/09/18at 10 :43; Start 11/09/18 at 08:30; Stop 11/09/18 at 08:31; Status DC Heparin Sodium/ Sodium Chloride 500 ml @ As Directed STK-MED ONCE .ROUTE ; Start 11/09/18 at 08:59; Stop 11/09/18 at 09:00; Status DC Iodixanol (Visipaque 320) 100 ml STK-MED ONCE .ROUTE ; Start 11/09/18 at 09:04; Stop 11/09/18 at 09:05; Status DC Heparin Sodium/ Sodium Chloride (HEPARIN for ARTERIAL LINE FLUSH) 1,000 unit 1X ONCE IART Last administered on 11/09/18at 10:40; Start 11/09/18 at 09:15; Stop 11/09/18 at 09:16; Status DC Heparin Sodium/ Sodium Chloride (HEPARIN for ARTERIAL LINE FLUSH) 1,000 unit 1X ONCE IART Last administered on 11/09/18at 10:40; Start 11/09/18 at 09:15; Stop 11/09/18 at 09:16; Status DC Lidocaine/Sodium Bicarbonate (Buffered Lidocaine 1%) 6 ml 1X ONCE IJ Last administered on 11/09/18at 10:42; Start 11/09/18 at 09:15; Stop 11/09/18 at 09:16 ; Status DC Midazolam HCl (Versed) 2 mg 1X ONCE IV Last administered on 11/09/18 10:43; Start 11/09/18 at 09:15; Stop 11/09/18 at 09:16; Status DC Fentanyl Citrate (Fentanyl 2ml Vial) 100 mcg 1X ONCE IV Last administered on 10:44; Start 11/09/18 at 09:15; Stop 11/09/18 at 09:16; Status DC Iodixanol (Visipaque 320) 100 ml 1X ONCE IART Last administered on 11/09/18 10:44; Start 11/09/18 at 09:15; Stop 11/09/18 at 09:16; Status DC Heparin Sodium (Porcine) (Heparin Sodium) 7,500 unit 1X ONCE IV Last administered on 11/09/18 10:47; Start 11/09/18 at 09:15; Stop 11/09/18 at 09:16 ; Status DC Diphenhydramine HCl (Benadryl) 50 mg 1X ONCE IVP Last administered on 10:44; Start 11/09/18 at 09:15; Stop 11/09/18 at 09:16; Status DC Iodixanol (Visipaque 320) 50 ml 1X ONCE IART Last administered on 11/09/18 10 :45; Start 11/09/18 at 09:15; Stop 11/09/18 at 09:16; Status DC Info (CONTRAST GIVEN -- Rx MONITORING) 1 each PRN DAILY PRN MC SEE COMMENTS; Start 11/09/18 at 09:15; Stop 11/11/18 at 09:14; Status DC Heparin Sodium/ Sodium Chloride (HEPARIN for ARTERIAL LINE FLUSH) 1,000 unit 1X ONCE IV Last administered on 11/09/18at 10:41; Start 11/09/18 at 09:30; Stop 11/09/18 at 09:31; Status DC Heparin Sodium/ Sodium Chloride (HEPARIN for ARTERIAL LINE FLUSH) 1,000 unit 1X ONCE IV Last administered on 11/09/18 10:42; Start 11/09/18 at 09:30; Stop 11/09/18 at 09:31; Status DC Iodixanol (Visipaque 320) 100 ml STK-MED ONCE .ROUTE ; Start 11/09/18 at 09:41; Stop 11/09/18 at 09:42; Status DC Midazolam HCl (Versed) 2 mg STK-MED ONCE .ROUTE ; Start 11/09/18 at 09:50; Stop 11/09/18 at 09:51; Status DC Heparin Sodium/ Sodium Chloride 500 ml @ As Directed STK-MED ONCE .ROUTE ; Start 11/09/18 at 09:56; Stop 11/09/18 at 09:57; Status DC Iodixanol (Visipaque 320) 50 ml STK-MED ONCE .ROUTE ; Start 11/09/18 at 10:00; Stop 11/09/18 at 10:01; Status DC Clopidogrel Bisulfate (Plavix) 300 mg 1X ONCE PO Last administered on at 18:19; Start 11/09/18 at 12:15; Stop 11/09/18 at 12:16; Status DC Clopidogrel Bisulfate (Plavix) 75 mg 1X ONCE PO Last administered on at 19:53; Start 11/10/18 at 08:00; Stop 11/10/18 at 08:01; Status DC Albuterol Sulfate (Ventolin Neb Soln) 2.5 mg PRN Q6HRS PRN INH SHORTNESS OF BREATH; Start 11/09/18 at 14:30 Amlodipine Besylate (Norvasc) 10 mg PRN DAILY PRN PO HYPERTENSION, SEE COMMENTS ; Start 11/09/18 at 14:30 Aspirin (Ecotrin) 81 mg DAILY PO Last administered on 11/12/18at 09:06; Start at 09:00 Cinacalcet (Sensipar) 30 mg DAILYWSUP PO Last administered on 11/12/18at 17:08; Start 11/09/18 at 17:00 Clonidine HCl (Catapres Tts-2) 1 patch WEEKLY TD Last administered on at 17:00; Start 11/10/18 at 09:00 Clonidine HCl (Catapres) 0.2 mg BID PO ; Start 11/09/18 at 21:00; Status UNV Clopidogrel Bisulfate (Plavix) 75 mg DAILY PO Last administered on 11/12/18at 09 :06; Start 11/11/18 at 09:00 Fentanyl (Duragesic 25mcg/ Hr Patch) 1 patch Q72H TD ; Start 11/09/18 at 15:00 Ferrous Sulfate (Feosol) 325 mg DAILY PO Last administered on 11/12/18 09:06; Start 11/09/18 at 15:00 Furosemide (Lasix) 40 mg DAILY PO Last administered on 11/12/18 09:06; Start 11/09/18 at 15:00 Sevelamer Carbonate (Renvela) 1,600 mg TIDWMEALHC PO Last administered on 17:08; Start 11/09/18 at 17:00 Calcium Acetate (Phoslo) 1,334 mg TIDWMEALS PO Last administered on 11/12/18 17:08; Start 11/09/18 at 17:00 Losartan Potassium (Cozaar) 100 mg DAILY PO Last administered on 11/12/18 09: 07; Start 11/09/18 at 15:00 Atorvastatin Calcium (Lipitor) 5 mg QHS PO Last administered on 11/11/18 20:18 ; Start 11/09/18 at 21:00 Vitamin B Complex/ Vitamin C (Hyacinth-Brad) 1 tab DAILY PO Last administered on 09:06; Start 11/09/18 at 15:00 Sodium Chloride 1,000 ml @ 1,000 mls/hr Q1H PRN IV hypotension; Start 11/10/18 at 10:45; Stop 11/10/18 at 16:44; Status DC Sodium Chloride 1,000 ml @ 400 mls/hr Q2H30M PRN IV PATENCY; Start 11/10/18 at 10:45; Stop 11/10/18 at 22:44; Status DC Info (PHARMACY MONITORING -- do not chart) 1 each PRN DAILY PRN MC SEE COMMENTS ; Start 11/10/18 at 10:45; Stop 11/10/18 at 10:49; Status DC Info (PHARMACY MONITORING -- do not chart) 1 each PRN DAILY PRN MC SEE COMMENTS ; Start 11/10/18 at 10:45 Oxycodone/ Acetaminophen (Percocet 5/325) 1 tab PRN Q4HRS PRN PO PAIN SEVERE Last administered on 11/12/18at 15:36; Start 11/10/18 at 16:00 Multi-Ingred Cream/Lotion/Oil/ Oint (Hydrocerin Cream) 1 gasper BID TP Last administered on 11/12/18at 09:08; Start 11/11/18 at 14:00 Diclofenac Sodium (Voltaren) 1 gasper BID TP Last administered on 11/12/18at 09:12 ; Start 11/11/18 at 14:30 Sodium Chloride 1,000 ml @ 1,000 mls/hr Q1H PRN IV hypotension; Start 11/12/18 at 13:10; Stop 11/12/18 at 19:09 Albumin Human 200 ml @ 200 mls/hr 1X PRN PRN IV Hypotension; Start 11/12/18 at 13:15; Stop 11/12/18 at 19:14 Acetaminophen (Tylenol) 500 mg 1X PRN PRN PO MILD PAIN / TEMP; Start 11/12/18 at 13:15; Stop 11/13/18 at 13:14 Diphenhydramine HCl (Benadryl) 25 mg 1X PRN PRN IV ITCHING; Start 11/12/18 at 13:15; Stop 11/13/18 at 13:14 Diphenhydramine HCl (Benadryl) 25 mg 1X PRN PRN IV ITCHING; Start 11/12/18 at 13:15; Stop 11/13/18 at 13:14 Sodium Chloride 1,000 ml @ 400 mls/hr Q2H30M PRN IV PATENCY; Start 11/12/18 at 13:10; Stop 11/13/18 at 01:09 Info (PHARMACY MONITORING -- do not chart) 1 each PRN DAILY PRN MC SEE COMMENTS ; Start 11/12/18 at 13:15; Status UNV Active Scripts Active Proair Hfa Inhaler (Albuterol Sulfate) 8.5 Gm Hfa.aer.ad 1 Puff INH PRN Q6HRS PRN 14 Days Doxycycline Hyclate 100 Mg Tablet 100 Mg PO BID 7 Days Reported FENTANYL 25mcg/hr (Fentanyl) 1 Each Patch.td72 1 Patch TD Q72H Clopidogrel (Clopidogrel Bisulfate) 75 Mg Tablet 1 Tab PO DAILY Catapres-Tts 2 (Clonidine) 1 Each Patch.tdwk 1 Each TD WEEKLY Clonidine Hcl 0.2 Mg Tablet 0.2 Mg PO BID Dialyvite Bear Dance D Tablet (Multivitamin, Min Cmb#25/Fa/D3) 1 Each Tablet 1 Each PO DAILY Renvela (Sevelamer Carbonate) 800 Mg Tablet 2 Tab PO TIDWMEALHC Sensipar (Cinacalcet Hcl) 30 Mg Tablet 1 Tab PO DAILYWSUP Calcium Acetate 667 Mg Tablet 1,334 Mg PO TIDWMEALS Lovastatin 10 Mg Tablet 10 Mg PO HS Losartan Potassium 100 Mg Tablet 100 Mg PO DAILY Amlodipine Besylate 10 Mg Tablet 10 Mg PO PRN DAILY PRN Ferrous Sulfate 325 Mg Tablet 1 Tab PO DAILY Lasix (Furosemide) 40 Mg Tablet 1 Tab PO DAILY Aspir 81 (Aspirin) 81 Mg Tablet.dr 1 Tab PO DAILY Vitals/I & O Vital Sign - Last 24 Hours 11/11/18 11/11/18 11/11/18 11/12/18 19:00 20:00 23:00 03:00 Temp 98.2 98.0 98.0 98.2 98.0 98.0 Pulse 78 83 73 Resp 18 18 18 B/P (MAP) 113/34 (60) 103/40 (61) 95/31 (52) Pulse Ox 98 96 96 O2 Delivery Room Air Room Air Room Air Room Air 11/12/18 11/12/18 11/12/18 11/12/18 07:00 07:47 09:07 09:15 Temp 98.7 98.7 Pulse 68 68 Resp 18 B/P (MAP) 100/40 (60) 100/40 Pulse Ox 99 O2 Delivery Room Air Room Air Room Air 11/12/18 11/12/18 11/12/18 10:00 11:00 15:36 Temp 97.4 97.4 Pulse 70 Resp 18 B/P (MAP) 110/35 (60) Pulse Ox 94 O2 Delivery Room Air Room Air Room Air Intake and Output 11/11/18 11/11/18 11/12/18 15:00 23:00 07:00 Intake Total 210 ml 0 ml Output Total 0 ml Balance 210 ml 0 ml CASH WRIGHT MD Nov 12, 2018 17:42
[2018-11-12 19:00] VITALS: BP 111/38
[2018-11-12] MEDS: ATORVASTATIN CALCIUM 10 MG TABLET. PO SCH (21:08)
[2018-11-12 23:00] VITALS: BP 135/49
[2018-11-13 03:00] VITALS: BP 95/31
[2018-11-13 07:00] VITALS: BP 92/39
[2018-11-13] MEDS: SEVELAMER CARBONATE 800 MG TABLET. PO SCH ×4 (08:00→20:49)
[2018-11-13] MEDS: DICLOFENAC SODIUM 1% TOPICAL GEL 100GM TUBE. TP SCH ×2 (08:05→20:50)
[2018-11-13] MEDS: FUROSEMIDE 40 MG TABLET. PO SCH (08:05)
[2018-11-13] MEDS: MINERAL OIL/PETROLATUM TOPICAL CREAM 113GM JAR. TP SCH ×2 (08:05→20:49)
[2018-11-13] MEDS: ASPIRIN ENTERIC COATED 81 MG TABLET.DR. PO SCH (08:06)
[2018-11-13] MEDS: FOLIC/VIT B COMP W-C (RENAL) TABLET. PO SCH (08:06)
[2018-11-13] MEDS: CALCIUM ACETATE 667 MG CAPSULE PO SCH ×3 (08:06→17:00)
[2018-11-13] MEDS: CLOPIDOGREL BISULFATE 75 MG TABLET PO SCH (08:06)
[2018-11-13] MEDS: FERROUS SULFATE 325 MG TABLET. PO SCH (08:06)
[2018-11-13] MEDS: LOSARTAN POTASSIUM 50 MG TABLET. PO SCH (08:07)
--- NOTE | 2018-11-13 10:26 | PDOC ---
PROGRESS NOTES Subjective Subjective She feels sleepy as she did not sleep well last night. Objective Objective Vital Signs Date Time Temp Pulse Resp B/P (MAP) Pulse Ox O2 Delivery O2 Flow Rate FiO2 11/13/18 08:07 67 95/31 11/13/18 07:00 98.3 16 95 Room Air 98.3 11/12/18 20:10 2.0 Intake and Output 11/13/18 06:59 Intake Total 180 ml Output Total 0 ml Balance 180 ml Intake Oral 180 ml Output Urine Total 0 ml Physical Exam Physical Exam She is awake and moves all 4 extremities actively and she is being followed by physical therapy and occupational therapy. Assessment Assessment Problems Medical Problems: (1) AV graft malfunction Status: Acute Plan Plan of Care To SNF or home with home health follow up when medically stable. Comment Review of Relevant I have reviewed the following items vicente (where applicable) has been applied. Labs Laboratory Tests Test 11/11/18 11:34 11/11/18 17:01 11/11/18 20:32 11/12/18 07:27 Glucose (Fingerstick) 123 mg/dL (70-99) 89 mg/dL (70-99) 107 mg/dL (70-99) 76 mg/dL (70-99) Test 11/12/18 10:58 11/12/18 17:08 11/12/18 20:15 11/13/18 07:30 Glucose (Fingerstick) 96 mg/dL (70-99) 110 mg/dL (70-99) 120 mg/dL (70-99) 91 mg/dL (70-99) Laboratory Tests Test 11/12/18 10:58 11/12/18 17:08 11/12/18 20:15 11/13/18 07:30 Glucose (Fingerstick) 96 mg/dL (70-99) 110 mg/dL (70-99) 120 mg/dL (70-99) 91 mg/dL (70-99) Medications Current Medications Fentanyl Citrate (Fentanyl 2ml Vial) 50 mcg 1X ONCE IV Last administered on at 03:35; Start 11/09/18 at 03:30; Stop 11/09/18 at 03:32; Status DC Fentanyl Citrate (Fentanyl 2ml Vial) 50 mcg PRN Q2HR PRN IV SEVERE PAIN; Start 11/09/18 at 05:45; Stop 11/10/18 at 05:44; Status DC Heparin Sodium/ Dextrose 500 ml @ 0 mls/hr CONT PRN IV SEE I/O RECORD Last administered on 11/09/18at 06:00; Start 11/09/18 at 05:45; Stop 11/09/18 at 12:40 ; Status DC Lorazepam (Ativan) 0.5 mg 1X ONCE IV Last administered on 11/09/18at 05:57; Start 11/09/18 at 06:00; Stop 11/09/18 at 06:01; Status DC Info (Anti-Coagulation Monitoring By Pharmacy) 1 each PRN DAILY PRN MC SEE COMMENTS Last administered on 11/09/18at 05:58; Start 11/09/18 at 05:45; Stop at 12:41; Status DC Iodixanol (Visipaque 320) 100 ml STK-MED ONCE .ROUTE ; Start 11/09/18 at 07:15; Stop 11/09/18 at 07:16; Status DC Lidocaine/Sodium Bicarbonate (Buffered Lidocaine 1%) 3 ml STK-MED ONCE .ROUTE ; Start 11/09/18 at 07:15; Stop 11/09/18 at 07:16; Status DC Heparin Sodium/ Sodium Chloride 1,000 ml @ As Directed STK-MED ONCE .ROUTE ; Start 11/09/18 at 07:15; Stop 11/09/18 at 07:16; Status DC Iodixanol (Visipaque 320) 100 ml STK-MED ONCE .ROUTE ; Start 11/09/18 at 07:44; Stop 11/09/18 at 07:45; Status DC Iodixanol (Visipaque 320) 50 ml STK-MED ONCE .ROUTE ; Start 11/09/18 at 07:44; Stop 11/09/18 at 07:45; Status DC Iodixanol (Visipaque 320) 100 ml STK-MED ONCE .ROUTE ; Start 11/09/18 at 07:47; Stop 11/09/18 at 07:48; Status DC Midazolam HCl (Versed) 2 mg STK-MED ONCE .ROUTE ; Start 11/09/18 at 07:48; Stop 11/09/18 at 07:49; Status DC Fentanyl Citrate (Fentanyl 2ml Vial) 100 mcg STK-MED ONCE .ROUTE ; Start at 07:48; Stop 11/09/18 at 07:49; Status DC Heparin Sodium (Porcine) (Heparin Sodium) 10,000 unit STK-MED ONCE .ROUTE ; Start 11/09/18 at 08:03; Stop 11/09/18 at 08:04; Status DC Diphenhydramine HCl (Benadryl) 50 mg STK-MED ONCE .ROUTE ; Start 11/09/18 at 08: 28; Stop 11/09/18 at 08:29; Status DC Hydromorphone HCl (Dilaudid) 2 mg 1X ONCE IV Last administered on 11/09/18at 10 :43; Start 11/09/18 at 08:30; Stop 11/09/18 at 08:31; Status DC Heparin Sodium/ Sodium Chloride 500 ml @ As Directed STK-MED ONCE .ROUTE ; Start 11/09/18 at 08:59; Stop 11/09/18 at 09:00; Status DC Iodixanol (Visipaque 320) 100 ml STK-MED ONCE .ROUTE ; Start 11/09/18 at 09:04; Stop 11/09/18 at 09:05; Status DC Heparin Sodium/ Sodium Chloride (HEPARIN for ARTERIAL LINE FLUSH) 1,000 unit 1X ONCE IART Last administered on 11/09/18 10:40; Start 11/09/18 at 09:15; Stop 11/09/18 at 09:16; Status DC Heparin Sodium/ Sodium Chloride (HEPARIN for ARTERIAL LINE FLUSH) 1,000 unit 1X ONCE IART Last administered on 11/09/18 10:40; Start 11/09/18 at 09:15; Stop 11/09/18 at 09:16; Status DC Lidocaine/Sodium Bicarbonate (Buffered Lidocaine 1%) 6 ml 1X ONCE IJ Last administered on 11/09/18 10:42; Start 11/09/18 at 09:15; Stop 11/09/18 at 09:16 ; Status DC Midazolam HCl (Versed) 2 mg 1X ONCE IV Last administered on 11/09/18 10:43; Start 11/09/18 at 09:15; Stop 11/09/18 at 09:16; Status DC Fentanyl Citrate (Fentanyl 2ml Vial) 100 mcg 1X ONCE IV Last administered on at 10:44; Start 11/09/18 at 09:15; Stop 11/09/18 at 09:16; Status DC Iodixanol (Visipaque 320) 100 ml 1X ONCE IART Last administered on 11/09/18 10:44; Start 11/09/18 at 09:15; Stop 11/09/18 at 09:16; Status DC Heparin Sodium (Porcine) (Heparin Sodium) 7,500 unit 1X ONCE IV Last administered on 11/09/18 10:47; Start 11/09/18 at 09:15; Stop 11/09/18 at 09:16 ; Status DC Diphenhydramine HCl (Benadryl) 50 mg 1X ONCE IVP Last administered on 10:44; Start 11/09/18 at 09:15; Stop 11/09/18 at 09:16; Status DC Iodixanol (Visipaque 320) 50 ml 1X ONCE IART Last administered on 11/09/18 10 :45; Start 11/09/18 at 09:15; Stop 11/09/18 at 09:16; Status DC Info (CONTRAST GIVEN -- Rx MONITORING) 1 each PRN DAILY PRN MC SEE COMMENTS; Start 11/09/18 at 09:15; Stop 11/11/18 at 09:14; Status DC Heparin Sodium/ Sodium Chloride (HEPARIN for ARTERIAL LINE FLUSH) 1,000 unit 1X ONCE IV Last administered on 11/09/18 10:41; Start 11/09/18 at 09:30; Stop 11/09/18 at 09:31; Status DC Heparin Sodium/ Sodium Chloride (HEPARIN for ARTERIAL LINE FLUSH) 1,000 unit 1X ONCE IV Last administered on 11/09/18 10:42; Start 11/09/18 at 09:30; Stop 11/09/18 at 09:31; Status DC Iodixanol (Visipaque 320) 100 ml STK-MED ONCE .ROUTE ; Start 11/09/18 at 09:41; Stop 11/09/18 at 09:42; Status DC Midazolam HCl (Versed) 2 mg STK-MED ONCE .ROUTE ; Start 11/09/18 at 09:50; Stop 11/09/18 at 09:51; Status DC Heparin Sodium/ Sodium Chloride 500 ml @ As Directed STK-MED ONCE .ROUTE ; Start 11/09/18 at 09:56; Stop 11/09/18 at 09:57; Status DC Iodixanol (Visipaque 320) 50 ml STK-MED ONCE .ROUTE ; Start 11/09/18 at 10:00; Stop 11/09/18 at 10:01; Status DC Clopidogrel Bisulfate (Plavix) 300 mg 1X ONCE PO Last administered on at 18:19; Start 11/09/18 at 12:15; Stop 11/09/18 at 12:16; Status DC Clopidogrel Bisulfate (Plavix) 75 mg 1X ONCE PO Last administered on at 19:53; Start 11/10/18 at 08:00; Stop 11/10/18 at 08:01; Status DC Albuterol Sulfate (Ventolin Neb Soln) 2.5 mg PRN Q6HRS PRN INH SHORTNESS OF BREATH; Start 11/09/18 at 14:30 Amlodipine Besylate (Norvasc) 10 mg PRN DAILY PRN PO HYPERTENSION, SEE COMMENTS ; Start 11/09/18 at 14:30 Aspirin (Ecotrin) 81 mg DAILY PO Last administered on 11/13/18at 08:06; Start at 09:00 Cinacalcet (Sensipar) 30 mg DAILYWSUP PO Last administered on 11/12/18at 17:08; Start 11/09/18 at 17:00 Clonidine HCl (Catapres Tts-2) 1 patch WEEKLY TD Last administered on at 17:00; Start 11/10/18 at 09:00 Clonidine HCl (Catapres) 0.2 mg BID PO ; Start 11/09/18 at 21:00; Status UNV Clopidogrel Bisulfate (Plavix) 75 mg DAILY PO Last administered on 11/13/18at 08 :06; Start 11/11/18 at 09:00 Fentanyl (Duragesic 25mcg/ Hr Patch) 1 patch Q72H TD ; Start 11/09/18 at 15:00 Ferrous Sulfate (Feosol) 325 mg DAILY PO Last administered on 11/13/18at 08:06; Start 11/09/18 at 15:00 Furosemide (Lasix) 40 mg DAILY PO Last administered on 11/13/18at 08:05; Start 11/09/18 at 15:00 Sevelamer Carbonate (Renvela) 1,600 mg TIDWMEALHC PO Last administered on 21:07; Start 11/09/18 at 17:00 Calcium Acetate (Phoslo) 1,334 mg TIDWMEALS PO Last administered on 11/13/18 08:06; Start 11/09/18 at 17:00 Losartan Potassium (Cozaar) 100 mg DAILY PO Last administered on 11/12/18 09: 07; Start 11/09/18 at 15:00 Atorvastatin Calcium (Lipitor) 5 mg QHS PO Last administered on 11/12/18 21:08 ; Start 11/09/18 at 21:00 Vitamin B Complex/ Vitamin C (Hyacinth-Brad) 1 tab DAILY PO Last administered on 08:06; Start 11/09/18 at 15:00 Sodium Chloride 1,000 ml @ 1,000 mls/hr Q1H PRN IV hypotension; Start 11/10/18 at 10:45; Stop 11/10/18 at 16:44; Status DC Sodium Chloride 1,000 ml @ 400 mls/hr Q2H30M PRN IV PATENCY; Start 11/10/18 at 10:45; Stop 11/10/18 at 22:44; Status DC Info (PHARMACY MONITORING -- do not chart) 1 each PRN DAILY PRN MC SEE COMMENTS ; Start 11/10/18 at 10:45; Stop 11/10/18 at 10:49; Status DC Info (PHARMACY MONITORING -- do not chart) 1 each PRN DAILY PRN MC SEE COMMENTS ; Start 11/10/18 at 10:45 Oxycodone/ Acetaminophen (Percocet 5/325) 1 tab PRN Q4HRS PRN PO PAIN SEVERE Last administered on 11/12/18at 21:08; Start 11/10/18 at 16:00 Multi-Ingred Cream/Lotion/Oil/ Oint (Hydrocerin Cream) 1 gasper BID TP Last administered on 11/13/18 08:05; Start 11/11/18 at 14:00 Diclofenac Sodium (Voltaren) 1 gasper BID TP Last administered on 11/13/18 08:05 ; Start 11/11/18 at 14:30 Sodium Chloride 1,000 ml @ 1,000 mls/hr Q1H PRN IV hypotension; Start 11/12/18 at 13:10; Stop 11/12/18 at 19:09; Status DC Albumin Human 200 ml @ 200 mls/hr 1X PRN PRN IV Hypotension; Start 11/12/18 at 13:15; Stop 11/12/18 at 19:14; Status DC Acetaminophen (Tylenol) 500 mg 1X PRN PRN PO MILD PAIN / TEMP; Start 11/12/18 at 13:15; Stop 11/13/18 at 13:14 Diphenhydramine HCl (Benadryl) 25 mg 1X PRN PRN IV ITCHING; Start 11/12/18 at 13:15; Stop 11/13/18 at 13:14 Diphenhydramine HCl (Benadryl) 25 mg 1X PRN PRN IV ITCHING; Start 11/12/18 at 13:15; Stop 11/13/18 at 13:14 Sodium Chloride 1,000 ml @ 400 mls/hr Q2H30M PRN IV PATENCY; Start 11/12/18 at 13:10; Stop 11/13/18 at 01:09; Status DC Info (PHARMACY MONITORING -- do not chart) 1 each PRN DAILY PRN MC SEE COMMENTS ; Start 11/12/18 at 13:15; Status UNV Active Scripts Active Proair Hfa Inhaler (Albuterol Sulfate) 8.5 Gm Hfa.aer.ad 1 Puff INH PRN Q6HRS PRN 14 Days Doxycycline Hyclate 100 Mg Tablet 100 Mg PO BID 7 Days Reported FENTANYL 25mcg/hr (Fentanyl) 1 Each Patch.td72 1 Patch TD Q72H Clopidogrel (Clopidogrel Bisulfate) 75 Mg Tablet 1 Tab PO DAILY Catapres-Tts 2 (Clonidine) 1 Each Patch.tdwk 1 Each TD WEEKLY Clonidine Hcl 0.2 Mg Tablet 0.2 Mg PO BID Dialyvite [place] D Tablet (Multivitamin, Min Cmb#25/Fa/D3) 1 Each Tablet 1 Each PO DAILY Renvela (Sevelamer Carbonate) 800 Mg Tablet 2 Tab PO TIDWMEALHC Sensipar (Cinacalcet Hcl) 30 Mg Tablet 1 Tab PO DAILYWSUP Calcium Acetate 667 Mg Tablet 1,334 Mg PO TIDWMEALS Lovastatin 10 Mg Tablet 10 Mg PO HS Losartan Potassium 100 Mg Tablet 100 Mg PO DAILY Amlodipine Besylate 10 Mg Tablet 10 Mg PO PRN DAILY PRN Ferrous Sulfate 325 Mg Tablet 1 Tab PO DAILY Lasix (Furosemide) 40 Mg Tablet 1 Tab PO DAILY Aspir 81 (Aspirin) 81 Mg Tablet. 1 Tab PO DAILY Vitals/I & O Vital Sign - Last 24 Hours 11/12/18 11/12/18 11/12/18 11/12/18 11:00 15:36 19:00 20:10 Temp 97.4 98.1 97.4 98.1 Pulse 70 86 Resp 18 20 B/P (MAP) 110/35 (60) 111/38 (62) Pulse Ox 94 94 O2 Delivery Room Air Room Air Room Air Room Air O2 Flow Rate 2.0 11/12/18 11/12/18 11/12/18 11/13/18 21:08 22:10 23:00 03:00 Temp 97.9 98.1 97.9 98.1 Pulse 79 67 Resp 20 20 20 20 B/P (MAP) 135/49 (77) 95/31 (52) Pulse Ox 94 98 97 O2 Delivery Room Air Room Air Room Air 11/13/18 11/13/18 07:00 08:07 Temp 98.3 98.3 Pulse 67 67 Resp 16 B/P (MAP) 92/39 (56) 95/31 Pulse Ox 95 O2 Delivery Room Air Intake and Output 11/12/18 11/12/18 11/13/18 14:59 22:59 06:59 Intake Total 180 ml Output Total 0 ml Balance 180 ml 0 ml CASH WRIGHT MD Nov 13, 2018 10:26
[2018-11-13 11:00] VITALS: BP 87/30
--- NOTE | 2018-11-13 11:38 | PDOC ---
SUBJECTIVE ROS Follow-up for ESRD on hemodialysis Thursday Patient claims her lower extremity continues to hurt currently. Her oral intake has been minimal. She has no appetite admittedly CVS: no Orthopnea, no CP RESP: no SOB, no CARRERA GI: no Nausea, no Vomiting : no Dysuria, no Urgency OBJECTIVE Vital Signs Vital Signs Date Time Temp Pulse Resp B/P (MAP) Pulse Ox O2 Delivery O2 Flow Rate FiO2 11/13/18 08:07 67 95/31 11/13/18 07:00 98.3 16 95 Room Air 98.3 11/12/18 20:10 2.0 I & 0 Intake and Output 11/13/18 07:00 Intake Total 180 ml Output Total 0 ml Balance 180 ml Intake Oral 180 ml Output Urine Total 0 ml PHYSICAL EXAM Physical Exam GEN: Awake, Oriented x 1-2 , In min distress EYES: Vision Unchanged, Conjunctiva Normal EN: No EN Drainage, Mucous Membranes drysich NECK: no JVD, min JVP, Supple, no Thyromegaly CVS: S1S2, soft Murmur, No Gallop, No Rub,no Edema RESP: no Rales, no Rhonchi,no Acc. Muscle Use GI: BS + ve, NO Bruit, Non Tender, Non Distended; obese : no CVA tenderness, no Suprapubic Tenderness DIAGNOSIS/ASSESSMENT Assessment & Plan ESRD: Current fluid and E-lyte status does not necessitate emergent need for dialysis. Will re-evaluate for dialysis in the am and continue on MWF schedule. ANEMIA; Aranesp as ordered, Transfuse with next HD as needed HTN associated with ESRD: Blood pressure is currently running marginal hence Norvasc was decreased Poor by mouth intake: Start PPN BONE & MINERAL: No recent phosphorus levels available: Continue current binders Discussed Plan of Care with patient at bedside COMMENT/RELEVANT DATA Meds Current Medications Medications (Trade) Dose Ordered Sig/Virgil Start Time Stop Time Status Last Admin Dose Admin Acetaminophen (Tylenol) 500 mg 1X PRN PRN 11/12/18 13:15 11/13/18 13:14 Albumin Human 200 ml @ 200 mls/hr 1X PRN PRN 11/12/18 13:15 11/12/18 19:14 DC Albuterol Sulfate (Ventolin Neb Soln) 2.5 mg PRN Q6HRS PRN 11/09/18 14:30 Amlodipine Besylate (Norvasc) 10 mg PRN DAILY PRN 11/09/18 14:30 Aspirin (Ecotrin) 81 mg DAILY 11/10/18 09:00 11/13/18 08:06 81 MG Atorvastatin Calcium (Lipitor) 5 mg QHS 11/09/18 21:00 11/12/18 21:08 5 MG Calcium Acetate (Phoslo) 1,334 mg TIDWMEALS 11/09/18 17:00 11/13/18 08:06 1,334 MG Cinacalcet (Sensipar) 30 mg DAILYWSUP 11/09/18 17:00 11/12/18 17:08 30 MG Clonidine HCl (Catapres Tts-2) 1 patch WEEKLY 11/10/18 09:00 11/10/18 17:00 1 PATCH Clonidine HCl (Catapres) 0.2 mg BID 11/09/18 21:00 UNV Clopidogrel Bisulfate (Plavix) 75 mg DAILY 11/11/18 09:00 11/13/18 08:06 75 MG Diclofenac Sodium (Voltaren) 1 gasper BID 11/11/18 14:30 11/13/18 08:05 1 GASPER Diphenhydramine HCl (Benadryl) 25 mg 1X PRN PRN 11/12/18 13:15 11/13/18 13:14 Fentanyl (Duragesic 25mcg/ Hr Patch) 1 patch Q72H 11/09/18 15:00 Fentanyl Citrate (Fentanyl 2ml Vial) 100 mcg 1X ONCE 11/09/18 09:15 11/09/18 09:16 DC 11/09/18 10:44 100 MCG Ferrous Sulfate (Feosol) 325 mg DAILY 11/09/18 15:00 11/13/18 08:06 325 MG Furosemide (Lasix) 40 mg DAILY 11/09/18 15:00 11/13/18 08:05 40 MG Heparin Sodium (Porcine) (Heparin Sodium) 7,500 unit 1X ONCE 11/09/18 09:15 11/09/18 09:16 DC 11/09/18 10:47 10,000 UNIT Heparin Sodium/ Dextrose 500 ml @ 0 mls/hr CONT PRN 11/09/18 05:45 11/09/18 12:40 DC 11/09/18 06:00 20 MLS/HR Heparin Sodium/ Sodium Chloride 500 ml @ As Directed STK-MED ONCE 11/09/18 09:56 11/09/18 09:57 DC Heparin Sodium/ Sodium Chloride (HEPARIN for ARTERIAL LINE FLUSH) 1,000 unit 1X ONCE 11/09/18 09:30 11/09/18 09:31 DC 11/09/18 10:42 1,000 UNIT Hydromorphone HCl (Dilaudid) 2 mg 1X ONCE 11/09/18 08:30 11/09/18 08:31 DC 11/09/18 10:43 1.5 MG Info (Anti-Coagulation Monitoring By Pharmacy) 1 each PRN DAILY PRN 11/09/18 05:45 11/09/18 12:41 DC 11/09/18 05:58 1 EACH Info (CONTRAST GIVEN -- Rx MONITORING) 1 each PRN DAILY PRN 11/09/18 09:15 11/11/18 09:14 DC Info (PHARMACY MONITORING -- do not chart) 1 each PRN DAILY PRN 11/12/18 13:15 UNV Iodixanol (Visipaque 320) 50 ml STK-MED ONCE 11/09/18 10:00 11/09/18 10:01 DC Lidocaine/Sodium Bicarbonate (Buffered Lidocaine 1%) 6 ml 1X ONCE 11/09/18 09:15 11/09/18 09:16 DC 11/09/18 10:42 6 ML Lorazepam (Ativan) 0.5 mg 1X ONCE 11/09/18 06:00 11/09/18 06:01 DC 11/09/18 05:57 0.5 MG Losartan Potassium (Cozaar) 100 mg DAILY 11/09/18 15:00 11/12/18 09:07 100 MG Midazolam HCl (Versed) 2 mg STK-MED ONCE 11/09/18 09:50 11/09/18 09:51 DC Multi-Ingred Cream/Lotion/Oil/ Oint (Hydrocerin Cream) 1 gasper BID 11/11/18 14:00 11/13/18 08:05 1 GASPER Oxycodone/ Acetaminophen (Percocet 5/325) 1 tab PRN Q4HRS PRN 11/10/18 16:00 11/12/18 21:08 1 TAB Sevelamer Carbonate (Renvela) 1,600 mg TIDWMEALHC 11/09/18 17:00 11/12/18 21:07 1,600 MG Sodium Chloride 1,000 ml @ 400 mls/hr Q2H30M PRN 11/12/18 13:10 11/13/18 01:09 DC Vitamin B Complex/ Vitamin C (Hyacinth-Brad) 1 tab DAILY 11/09/18 15:00 11/13/18 08:06 1 TAB Lab Laboratory Tests Test 11/12/18 17:08 11/12/18 20:15 11/13/18 07:30 Glucose (Fingerstick) 110 mg/dL (70-99) 120 mg/dL (70-99) 91 mg/dL (70-99) Results All relevant outside records, renal labs, imaging studies, telemetry/EKG's were reviewed. VELIA AMARAL MD Nov 13, 2018 11:38
[2018-11-13] MEDS: AMINO AC 3%/ELECTROLYTE/GLYCER 1,000 ML IV SCH (12:00)
[2018-11-13] MEDS ORDERED: amLODIPine BESYLATE 5 MG TABLET PO PRN (12:00)
[2018-11-13] MEDS ORDERED: MAGNESIUM SULFATE 2GM 50 ML IV PRN (12:00)
[2018-11-13 15:00] VITALS: BP 95/34
[2018-11-13] MEDS: CINACALCET HCL 30 MG TABLET PO SCH (17:00)
[2018-11-13] MEDS: oxyCODONE/APAP 5/325 1 TAB TABLET PO PRN (18:58)
[2018-11-13 19:00] VITALS: BP 108/36
[2018-11-13] MEDS: ATORVASTATIN CALCIUM 10 MG TABLET. PO SCH (20:49)
[2018-11-13] MEDS ORDERED: DARBEPOETIN ALFA 100 MCG/0.5 ML DISP.SYRIN. SQ SCH (21:00)
[2018-11-13 23:03] VITALS: BP 92/41
[2018-11-14] MEDS: AMINO AC 3%/ELECTROLYTE/GLYCER 1,000 ML IV SCH ×2 (00:30→12:30)
[2018-11-14 03:00] VITALS: BP 101/36
[2018-11-14 07:00] VITALS: BP 120/36
[2018-11-14] MEDS: SEVELAMER CARBONATE 800 MG TABLET. PO SCH ×4 (08:54→21:39)
[2018-11-14] MEDS: CALCIUM ACETATE 667 MG CAPSULE PO SCH ×3 (08:54→17:18)
[2018-11-14] MEDS: CLOPIDOGREL BISULFATE 75 MG TABLET PO SCH (08:54)
[2018-11-14] MEDS: oxyCODONE/APAP 5/325 1 TAB TABLET PO PRN (08:54)
[2018-11-14] MEDS: FOLIC/VIT B COMP W-C (RENAL) TABLET. PO SCH (08:54)
[2018-11-14] MEDS: FERROUS SULFATE 325 MG TABLET. PO SCH (08:54)
[2018-11-14] MEDS: ASPIRIN ENTERIC COATED 81 MG TABLET.DR. PO SCH (08:54)
[2018-11-14] MEDS: DICLOFENAC SODIUM 1% TOPICAL GEL 100GM TUBE. TP SCH ×2 (08:55→21:39)
[2018-11-14] MEDS: MINERAL OIL/PETROLATUM TOPICAL CREAM 113GM JAR. TP SCH ×2 (08:55→21:39)
[2018-11-14] MEDS: LOSARTAN POTASSIUM 50 MG TABLET. PO SCH (08:56)
[2018-11-14] MEDS: FUROSEMIDE 40 MG TABLET. PO SCH (08:56)
[2018-11-14 11:00] VITALS: BP 121/42
--- NOTE | 2018-11-14 13:57 | PDOC ---
PROGRESS NOTES Chief Complaint Chief Complaint limb ischemia, acute to hand, s/p IR - better ESRD weakness and debility acute encephalopathy Atherosclerosis to [place] artery of right leg, s/p rt ext iliac stent History of Present Illness History of Present Illness now right foot pain, cannot walk, more alert, looks good complains of left shoulder pain Dr. Polanco following for shoulder, now she has right foot pain consult podiatry, check right foot xray, no fall cont PT and OT she lives with her daughter, in a home in [place] Vitals Vitals Vital Signs Date Time Temp Pulse Resp B/P (MAP) Pulse Ox O2 Delivery O2 Flow Rate FiO2 11/14/18 11:00 98.1 65 18 121/42 (68) 95 Room Air 98.1 11/14/18 09:54 2.0 Physical Exam General: Alert, Oriented X3, Cooperative, No acute distress Heart: Regular rate Lungs: Other (rales, volume imrpoved, ) Abdomen: Normal bowel sounds, Soft Extremities: No clubbing, No edema, Normal pulses Skin: No breakdown, No significant lesion Labs LABS Laboratory Tests Test 11/13/18 16:11 11/13/18 20:00 11/14/18 04:00 11/14/18 07:42 Glucose (Fingerstick) 134 mg/dL (70-99) 151 mg/dL (70-99) 89 mg/dL (70-99) Magnesium Level 2.5 mg/dL (1.8-2.4) Test 11/14/18 11:27 Glucose (Fingerstick) 114 mg/dL (70-99) Assessment and Plan Assessmemt and Plan Problems Medical Problems: (1) AV graft malfunction Status: Acute Comment Review of Relevant I have reviewed the following items vicente (where applicable) has been applied. Labs Laboratory Tests Test 11/12/18 17:08 11/12/18 20:15 11/13/18 07:30 11/13/18 10:45 Glucose (Fingerstick) 110 mg/dL (70-99) 120 mg/dL (70-99) 91 mg/dL (70-99) 112 mg/dL (70-99) Test 11/13/18 16:11 11/13/18 20:00 11/14/18 04:00 11/14/18 07:42 Glucose (Fingerstick) 134 mg/dL (70-99) 151 mg/dL (70-99) 89 mg/dL (70-99) Magnesium Level 2.5 mg/dL (1.8-2.4) Test 11/14/18 11:27 Glucose (Fingerstick) 114 mg/dL (70-99) Laboratory Tests Test 11/13/18 16:11 11/13/18 20:00 11/14/18 04:00 11/14/18 07:42 Glucose (Fingerstick) 134 mg/dL (70-99) 151 mg/dL (70-99) 89 mg/dL (70-99) Magnesium Level 2.5 mg/dL (1.8-2.4) Test 11/14/18 11:27 Glucose (Fingerstick) 114 mg/dL (70-99) Medications Current Medications Fentanyl Citrate (Fentanyl 2ml Vial) 50 mcg 1X ONCE IV Last administered on 03:35; Start 11/09/18 at 03:30; Stop 11/09/18 at 03:32; Status DC Fentanyl Citrate (Fentanyl 2ml Vial) 50 mcg PRN Q2HR PRN IV SEVERE PAIN; Start 11/09/18 at 05:45; Stop 11/10/18 at 05:44; Status DC Heparin Sodium/ Dextrose 500 ml @ 0 mls/hr CONT PRN IV SEE I/O RECORD Last administered on 11/09/18at 06:00; Start 11/09/18 at 05:45; Stop 11/09/18 at 12:40 ; Status DC Lorazepam (Ativan) 0.5 mg 1X ONCE IV Last administered on 11/09/18at 05:57; Start 11/09/18 at 06:00; Stop 11/09/18 at 06:01; Status DC Info (Anti-Coagulation Monitoring By Pharmacy) 1 each PRN DAILY PRN MC SEE COMMENTS Last administered on 11/09/18at 05:58; Start 11/09/18 at 05:45; Stop at 12:41; Status DC Iodixanol (Visipaque 320) 100 ml STK-MED ONCE .ROUTE ; Start 11/09/18 at 07:15; Stop 11/09/18 at 07:16; Status DC Lidocaine/Sodium Bicarbonate (Buffered Lidocaine 1%) 3 ml STK-MED ONCE .ROUTE ; Start 11/09/18 at 07:15; Stop 11/09/18 at 07:16; Status DC Heparin Sodium/ Sodium Chloride 1,000 ml @ As Directed STK-MED ONCE .ROUTE ; Start 11/09/18 at 07:15; Stop 11/09/18 at 07:16; Status DC Iodixanol (Visipaque 320) 100 ml STK-MED ONCE .ROUTE ; Start 11/09/18 at 07:44; Stop 11/09/18 at 07:45; Status DC Iodixanol (Visipaque 320) 50 ml STK-MED ONCE .ROUTE ; Start 11/09/18 at 07:44; Stop 11/09/18 at 07:45; Status DC Iodixanol (Visipaque 320) 100 ml STK-MED ONCE .ROUTE ; Start 11/09/18 at 07:47; Stop 11/09/18 at 07:48; Status DC Midazolam HCl (Versed) 2 mg STK-MED ONCE .ROUTE ; Start 11/09/18 at 07:48; Stop 11/09/18 at 07:49; Status DC Fentanyl Citrate (Fentanyl 2ml Vial) 100 mcg STK-MED ONCE .ROUTE ; Start at 07:48; Stop 11/09/18 at 07:49; Status DC Heparin Sodium (Porcine) (Heparin Sodium) 10,000 unit STK-MED ONCE .ROUTE ; Start 11/09/18 at 08:03; Stop 11/09/18 at 08:04; Status DC Diphenhydramine HCl (Benadryl) 50 mg STK-MED ONCE .ROUTE ; Start 11/09/18 at 08: 28; Stop 11/09/18 at 08:29; Status DC Hydromorphone HCl (Dilaudid) 2 mg 1X ONCE IV Last administered on 11/09/18at 10 :43; Start 11/09/18 at 08:30; Stop 11/09/18 at 08:31; Status DC Heparin Sodium/ Sodium Chloride 500 ml @ As Directed STK-MED ONCE .ROUTE ; Start 11/09/18 at 08:59; Stop 11/09/18 at 09:00; Status DC Iodixanol (Visipaque 320) 100 ml STK-MED ONCE .ROUTE ; Start 11/09/18 at 09:04; Stop 11/09/18 at 09:05; Status DC Heparin Sodium/ Sodium Chloride (HEPARIN for ARTERIAL LINE FLUSH) 1,000 unit 1X ONCE IART Last administered on 11/09/18 10:40; Start 11/09/18 at 09:15; Stop 11/09/18 at 09:16; Status DC Heparin Sodium/ Sodium Chloride (HEPARIN for ARTERIAL LINE FLUSH) 1,000 unit 1X ONCE IART Last administered on 11/09/18 10:40; Start 11/09/18 at 09:15; Stop 11/09/18 at 09:16; Status DC Lidocaine/Sodium Bicarbonate (Buffered Lidocaine 1%) 6 ml 1X ONCE IJ Last administered on 11/09/18 10:42; Start 11/09/18 at 09:15; Stop 11/09/18 at 09:16 ; Status DC Midazolam HCl (Versed) 2 mg 1X ONCE IV Last administered on 11/09/18 10:43; Start 11/09/18 at 09:15; Stop 11/09/18 at 09:16; Status DC Fentanyl Citrate (Fentanyl 2ml Vial) 100 mcg 1X ONCE IV Last administered on 10:44; Start 11/09/18 at 09:15; Stop 11/09/18 at 09:16; Status DC Iodixanol (Visipaque 320) 100 ml 1X ONCE IART Last administered on 11/09/18 10:44; Start 11/09/18 at 09:15; Stop 11/09/18 at 09:16; Status DC Heparin Sodium (Porcine) (Heparin Sodium) 7,500 unit 1X ONCE IV Last administered on 11/09/18 10:47; Start 11/09/18 at 09:15; Stop 11/09/18 at 09:16 ; Status DC Diphenhydramine HCl (Benadryl) 50 mg 1X ONCE IVP Last administered on 10:44; Start 11/09/18 at 09:15; Stop 11/09/18 at 09:16; Status DC Iodixanol (Visipaque 320) 50 ml 1X ONCE IART Last administered on 11/09/18 10 :45; Start 11/09/18 at 09:15; Stop 11/09/18 at 09:16; Status DC Info (CONTRAST GIVEN -- Rx MONITORING) 1 each PRN DAILY PRN MC SEE COMMENTS; Start 11/09/18 at 09:15; Stop 11/11/18 at 09:14; Status DC Heparin Sodium/ Sodium Chloride (HEPARIN for ARTERIAL LINE FLUSH) 1,000 unit 1X ONCE IV Last administered on 11/09/18at 10:41; Start 11/09/18 at 09:30; Stop 11/09/18 at 09:31; Status DC Heparin Sodium/ Sodium Chloride (HEPARIN for ARTERIAL LINE FLUSH) 1,000 unit 1X ONCE IV Last administered on 11/09/18at 10:42; Start 11/09/18 at 09:30; Stop 11/09/18 at 09:31; Status DC Iodixanol (Visipaque 320) 100 ml STK-MED ONCE .ROUTE ; Start 11/09/18 at 09:41; Stop 11/09/18 at 09:42; Status DC Midazolam HCl (Versed) 2 mg STK-MED ONCE .ROUTE ; Start 11/09/18 at 09:50; Stop 11/09/18 at 09:51; Status DC Heparin Sodium/ Sodium Chloride 500 ml @ As Directed STK-MED ONCE .ROUTE ; Start 11/09/18 at 09:56; Stop 11/09/18 at 09:57; Status DC Iodixanol (Visipaque 320) 50 ml STK-MED ONCE .ROUTE ; Start 11/09/18 at 10:00; Stop 11/09/18 at 10:01; Status DC Clopidogrel Bisulfate (Plavix) 300 mg 1X ONCE PO Last administered on at 18:19; Start 11/09/18 at 12:15; Stop 11/09/18 at 12:16; Status DC Clopidogrel Bisulfate (Plavix) 75 mg 1X ONCE PO Last administered on at 19:53; Start 11/10/18 at 08:00; Stop 11/10/18 at 08:01; Status DC Albuterol Sulfate (Ventolin Neb Soln) 2.5 mg PRN Q6HRS PRN INH SHORTNESS OF BREATH; Start 11/09/18 at 14:30 Amlodipine Besylate (Norvasc) 10 mg PRN DAILY PRN PO HYPERTENSION, SEE COMMENTS ; Start 11/09/18 at 14:30; Stop 11/13/18 at 11:48; Status DC Aspirin (Ecotrin) 81 mg DAILY PO Last administered on 11/14/18 08:54; Start at 09:00 Cinacalcet (Sensipar) 30 mg DAILYWSUP PO Last administered on 11/12/18 17:08; Start 11/09/18 at 17:00 Clonidine HCl (Catapres Tts-2) 1 patch WEEKLY TD Last administered on 17:00; Start 11/10/18 at 09:00 Clonidine HCl (Catapres) 0.2 mg BID PO ; Start 11/09/18 at 21:00; Status UNV Clopidogrel Bisulfate (Plavix) 75 mg DAILY PO Last administered on 11/14/18 08 :54; Start 11/11/18 at 09:00 Fentanyl (Duragesic 25mcg/ Hr Patch) 1 patch Q72H TD ; Start 11/09/18 at 15:00 Ferrous Sulfate (Feosol) 325 mg DAILY PO Last administered on 11/14/18 08:54; Start 11/09/18 at 15:00 Furosemide (Lasix) 40 mg DAILY PO Last administered on 11/13/18 08:05; Start 11/09/18 at 15:00 Sevelamer Carbonate (Renvela) 1,600 mg TIDWMEALHC PO Last administered on 08:54; Start 11/09/18 at 17:00 Calcium Acetate (Phoslo) 1,334 mg TIDWMEALS PO Last administered on 11/14/18 08:54; Start 11/09/18 at 17:00 Losartan Potassium (Cozaar) 100 mg DAILY PO Last administered on 11/12/18 09: 07; Start 11/09/18 at 15:00 Atorvastatin Calcium (Lipitor) 5 mg QHS PO Last administered on 11/13/18 20:49 ; Start 11/09/18 at 21:00 Vitamin B Complex/ Vitamin C ([place]acinth-Brad) 1 tab DAILY PO Last administered on 08:54; Start 11/09/18 at 15:00 Sodium Chloride 1,000 ml @ 1,000 mls/hr Q1H PRN IV hypotension; Start 11/10/18 at 10:45; Stop 11/10/18 at 16:44; Status DC Sodium Chloride 1,000 ml @ 400 mls/hr Q2H30M PRN IV PATENCY; Start 11/10/18 at 10:45; Stop 11/10/18 at 22:44; Status DC Info (PHARMACY MONITORING -- do not chart) 1 each PRN DAILY PRN MC SEE COMMENTS ; Start 11/10/18 at 10:45; Stop 11/10/18 at 10:49; Status DC Info (PHARMACY MONITORING -- do not chart) 1 each PRN DAILY PRN MC SEE COMMENTS ; Start 11/10/18 at 10:45 Oxycodone/ Acetaminophen (Percocet 5/325) 1 tab PRN Q4HRS PRN PO PAIN SEVERE Last administered on 11/14/18at 08:54; Start 11/10/18 at 16:00 Multi-Ingred Cream/Lotion/Oil/ Oint (Hydrocerin Cream) 1 gasper BID TP Last administered on 11/14/18at 08:55; Start 11/11/18 at 14:00 Diclofenac Sodium (Voltaren) 1 gasper BID TP Last administered on 11/14/18at 08:55 ; Start 11/11/18 at 14:30 Sodium Chloride 1,000 ml @ 1,000 mls/hr Q1H PRN IV hypotension; Start 11/12/18 at 13:10; Stop 11/12/18 at 19:09; Status DC Albumin Human 200 ml @ 200 mls/hr 1X PRN PRN IV Hypotension; Start 11/12/18 at 13:15; Stop 11/12/18 at 19:14; Status DC Acetaminophen (Tylenol) 500 mg 1X PRN PRN PO MILD PAIN / TEMP; Start 11/12/18 at 13:15; Stop 11/13/18 at 13:14; Status DC Diphenhydramine HCl (Benadryl) 25 mg 1X PRN PRN IV ITCHING; Start 11/12/18 at 13:15; Stop 11/13/18 at 13:14; Status DC Diphenhydramine HCl (Benadryl) 25 mg 1X PRN PRN IV ITCHING; Start 11/12/18 at 13:15; Stop 11/13/18 at 13:14; Status DC Sodium Chloride 1,000 ml @ 400 mls/hr Q2H30M PRN IV PATENCY; Start 11/12/18 at 13:10; Stop 11/13/18 at 01:09; Status DC Info (PHARMACY MONITORING -- do not chart) 1 each PRN DAILY PRN MC SEE COMMENTS ; Start 11/12/18 at 13:15; Status UNV Amlodipine Besylate (Norvasc) 5 mg PRN DAILY PRN PO HYPERTENSION, SEE COMMENTS ; Start 11/13/18 at 12:00 Amino Acids/ Glycerin/ Electrolytes 1,000 ml @ 80 mls/hr [id number] IV ; Start at 12:00; Stop 11/14/18 at 13:07; Status DC Darbepoetin Filipe (Aranesp) 100 mcg WEEKLYHS SQ Last administered on 11/13/18at 20:50; Start 11/13/18 at 21:00 Magnesium Sulfate 50 ml @ 25 mls/hr PRN DAILY PRN IV for Mag < 1.7 on am labs; Start 11/13/18 at 12:00 Active Scripts Active Proair Hfa Inhaler (Albuterol Sulfate) 8.5 Gm Hfa.aer.ad 1 Puff INH PRN Q6HRS PRN 14 Days Reported FENTANYL 25mcg/hr (Fentanyl) 1 Each Patch.td72 1 Patch TD Q72H Clopidogrel (Clopidogrel Bisulfate) 75 Mg Tablet 1 Tab PO DAILY Catapres-Tts 2 (Clonidine) 1 Each Patch.tdwk 1 Each TD WEEKLY Clonidine Hcl 0.2 Mg Tablet 0.2 Mg PO BID Dialyvite [place] D Tablet (Multivitamin, Min Cmb#25/Fa/D3) 1 Each Tablet 1 Each PO DAILY Renvela (Sevelamer Carbonate) 800 Mg Tablet 2 Tab PO TIDWMEALHC Sensipar (Cinacalcet Hcl) 30 Mg Tablet 1 Tab PO DAILYWSUP Calcium Acetate 667 Mg Tablet 1,334 Mg PO TIDWMEALS Lovastatin 10 Mg Tablet 10 Mg PO HS Losartan Potassium 100 Mg Tablet 100 Mg PO DAILY Amlodipine Besylate 10 Mg Tablet 10 Mg PO PRN DAILY PRN Ferrous Sulfate 325 Mg Tablet 1 Tab PO DAILY Lasix (Furosemide) 40 Mg Tablet 1 Tab PO DAILY Aspir 81 (Aspirin) 81 Mg Tablet. 1 Tab PO DAILY Vitals/I & O Vital Sign - Last 24 Hours 11/13/18 11/13/18 11/13/18 11/13/18 15:00 18:58 19:00 20:20 Temp 98.3 98.3 98.3 98.3 Pulse 58 77 Resp 18 B/P (MAP) 95/34 (54) 108/36 (60) Pulse Ox 95 95 95 O2 Delivery Room Air Room Air Room Air Room Air O2 Flow Rate 2.0 11/13/18 11/14/18 11/14/18 11/14/18 23:03 03:00 07:00 08:00 Temp 97.8 97.5 98.1 97.8 97.5 98.1 Pulse 68 69 64 Resp 18 18 18 B/P (MAP) 92/41 (58) 101/36 (57) 120/36 (64) Pulse Ox 94 96 96 O2 Delivery Room Air Room Air Room Air Room Air O2 Flow Rate 2.0 11/14/18 11/14/18 11/14/18 11/14/18 08:54 08:56 09:54 11:00 Temp 98.1 98.1 Pulse 69 65 Resp 18 B/P (MAP) 101/36 121/42 (68) Pulse Ox 96 96 95 O2 Delivery Room Air Room Air Room Air O2 Flow Rate 2.0 2.0 Intake and Output 11/13/18 11/13/18 11/14/18 15:00 23:00 07:00 Intake Total 300 ml 90 ml 0 ml Output Total 0 ml 0 ml Balance 300 ml 90 ml 0 ml HERRERA RODRIGUEZ MD Nov 14, 2018 13:57
[2018-11-14 15:00] VITALS: BP 123/67
[2018-11-14] MEDS: CINACALCET HCL 30 MG TABLET PO SCH (17:17)
[2018-11-14 19:00] VITALS: BP 117/43
[2018-11-14] MEDS: ATORVASTATIN CALCIUM 10 MG TABLET. PO SCH (21:39)
[2018-11-14 23:00] VITALS: BP 116/62
[2018-11-15] VITALS (7 sets, daily range): BP systolic 110–140; BP diastolic 29–64
[2018-11-15] MEDS: CALCIUM ACETATE 667 MG CAPSULE PO SCH ×3 (08:00→17:25)
[2018-11-15] MEDS: SEVELAMER CARBONATE 800 MG TABLET. PO SCH ×4 (08:00→20:57)
--- NOTE | 2018-11-15 08:16 | NUR ---
[facility] following pt. Spoke with Yessi at and she will be submitting for auth today. [facility] will continue to follow.
--- NOTE | 2018-11-15 08:31 | RAD ---
2 view study of the right foot Clinical indications: Chronic right foot pain. FINDINGS: No acute fracture or dislocation or osteolytic process is seen. Distal tibial screw is seen. 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 No plantar spur of the calcaneus is seen. No significant arthritic change of the first metatarsal phalangeal joint is seen. IMPRESSION: No acute osseous abnormality. 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 Electronically signed by: Eriberto Allen MD (11/15/2018 8:28 AM) [facility]
[2018-11-15] MEDS ORDERED: IV NORMAL SALINE 1000ML BAG 1,000 ML IV PRN ×2 (08:42)
[2018-11-15] MEDS ORDERED: DIALYSIS PATIENT. MC PRN ×2 (08:45)
[2018-11-15] MEDS: DICLOFENAC SODIUM 1% TOPICAL GEL 100GM TUBE. TP SCH ×2 (09:00→20:57)
[2018-11-15] MEDS: MINERAL OIL/PETROLATUM TOPICAL CREAM 113GM JAR. TP SCH ×2 (09:00→20:57)
--- NOTE | 2018-11-15 09:11 | PDOC ---
PROGRESS NOTES Subjective Subjective She c/o right foot pain and physical therapy noted that this pain is limiting her weight bearing on his right foot. Objective Objective Vital Signs Date Time Temp Pulse Resp B/P (MAP) Pulse Ox O2 Delivery O2 Flow Rate FiO2 11/15/18 07:00 98.1 70 17 117/40 (65) 92 Room Air 98.1 11/14/18 09:54 2.0 Intake and Output 11/15/18 06:59 Intake Total 290 ml Balance 290 ml Intake Oral 290 ml # Bowel Movements 1 Physical Exam Physical Exam She is alert,receiving hemodialysis. She had pain free ROM of her right ankle and still some coldness of right foot toes when compared to left but warmer foot when compared to my examination earlier in the week. I have asked for Rooke boot to her right foot but it was not provided yet. Assessment Assessment Problems Medical Problems: (1) AV graft malfunction Status: Acute Plan Plan of Care To consider cam boot to right foot if pain is interfering with her weight bearing on it. She needs to go to SNF. Comment Review of Relevant I have reviewed the following items vicente (where applicable) has been applied. Labs Laboratory Tests Test 11/13/18 10:45 11/13/18 16:11 11/13/18 20:00 11/14/18 04:00 Glucose (Fingerstick) 112 mg/dL (70-99) 134 mg/dL (70-99) 151 mg/dL (70-99) Magnesium Level 2.5 mg/dL (1.8-2.4) Test 11/14/18 07:42 11/14/18 11:27 11/14/18 16:34 11/14/18 20:39 Glucose (Fingerstick) 89 mg/dL (70-99) 114 mg/dL (70-99) 109 mg/dL (70-99) 124 mg/dL (70-99) Test 11/15/18 06:53 11/15/18 06:55 11/15/18 07:19 Magnesium Level 2.7 mg/dL (1.8-2.4) Hemoglobin 9.9 g/dL (12.0-15.5) Glucose (Fingerstick) 92 mg/dL (70-99) Laboratory Tests Test 11/14/18 11:27 11/14/18 16:34 11/14/18 20:39 11/15/18 06:53 Glucose (Fingerstick) 114 mg/dL (70-99) 109 mg/dL (70-99) 124 mg/dL (70-99) Magnesium Level 2.7 mg/dL (1.8-2.4) Test 11/15/18 06:55 11/15/18 07:19 Hemoglobin 9.9 g/dL (12.0-15.5) Glucose (Fingerstick) 92 mg/dL (70-99) Medications Current Medications Fentanyl Citrate (Fentanyl 2ml Vial) 50 mcg 1X ONCE IV Last administered on at 03:35; Start 11/09/18 at 03:30; Stop 11/09/18 at 03:32; Status DC Fentanyl Citrate (Fentanyl 2ml Vial) 50 mcg PRN Q2HR PRN IV SEVERE PAIN; Start 11/09/18 at 05:45; Stop 11/10/18 at 05:44; Status DC Heparin Sodium/ Dextrose 500 ml @ 0 mls/hr CONT PRN IV SEE I/O RECORD Last administered on 11/09/18at 06:00; Start 11/09/18 at 05:45; Stop 11/09/18 at 12:40 ; Status DC Lorazepam (Ativan) 0.5 mg 1X ONCE IV Last administered on 11/09/18at 05:57; Start 11/09/18 at 06:00; Stop 11/09/18 at 06:01; Status DC Info (Anti-Coagulation Monitoring By Pharmacy) 1 each PRN DAILY PRN MC SEE COMMENTS Last administered on 11/09/18at 05:58; Start 11/09/18 at 05:45; Stop at 12:41; Status DC Iodixanol (Visipaque 320) 100 ml STK-MED ONCE .ROUTE ; Start 11/09/18 at 07:15; Stop 11/09/18 at 07:16; Status DC Lidocaine/Sodium Bicarbonate (Buffered Lidocaine 1%) 3 ml STK-MED ONCE .ROUTE ; Start 11/09/18 at 07:15; Stop 11/09/18 at 07:16; Status DC Heparin Sodium/ Sodium Chloride 1,000 ml @ As Directed STK-MED ONCE .ROUTE ; Start 11/09/18 at 07:15; Stop 11/09/18 at 07:16; Status DC Iodixanol (Visipaque 320) 100 ml STK-MED ONCE .ROUTE ; Start 11/09/18 at 07:44; Stop 11/09/18 at 07:45; Status DC Iodixanol (Visipaque 320) 50 ml STK-MED ONCE .ROUTE ; Start 11/09/18 at 07:44; Stop 11/09/18 at 07:45; Status DC Iodixanol (Visipaque 320) 100 ml STK-MED ONCE .ROUTE ; Start 11/09/18 at 07:47; Stop 11/09/18 at 07:48; Status DC Midazolam HCl (Versed) 2 mg STK-MED ONCE .ROUTE ; Start 11/09/18 at 07:48; Stop 11/09/18 at 07:49; Status DC Fentanyl Citrate (Fentanyl 2ml Vial) 100 mcg STK-MED ONCE .ROUTE ; Start at 07:48; Stop 11/09/18 at 07:49; Status DC Heparin Sodium (Porcine) (Heparin Sodium) 10,000 unit STK-MED ONCE .ROUTE ; Start 11/09/18 at 08:03; Stop 11/09/18 at 08:04; Status DC Diphenhydramine HCl (Benadryl) 50 mg STK-MED ONCE .ROUTE ; Start 11/09/18 at 08: 28; Stop 11/09/18 at 08:29; Status DC Hydromorphone HCl (Dilaudid) 2 mg 1X ONCE IV Last administered on 11/09/18at 10 :43; Start 11/09/18 at 08:30; Stop 11/09/18 at 08:31; Status DC Heparin Sodium/ Sodium Chloride 500 ml @ As Directed STK-MED ONCE .ROUTE ; Start 11/09/18 at 08:59; Stop 11/09/18 at 09:00; Status DC Iodixanol (Visipaque 320) 100 ml STK-MED ONCE .ROUTE ; Start 11/09/18 at 09:04; Stop 11/09/18 at 09:05; Status DC Heparin Sodium/ Sodium Chloride (HEPARIN for ARTERIAL LINE FLUSH) 1,000 unit 1X ONCE IART Last administered on 11/09/18at 10:40; Start 11/09/18 at 09:15; Stop 11/09/18 at 09:16; Status DC Heparin Sodium/ Sodium Chloride (HEPARIN for ARTERIAL LINE FLUSH) 1,000 unit 1X ONCE IART Last administered on 11/09/18 10:40; Start 11/09/18 at 09:15; Stop 11/09/18 at 09:16; Status DC Lidocaine/Sodium Bicarbonate (Buffered Lidocaine 1%) 6 ml 1X ONCE IJ Last administered on 11/09/18 10:42; Start 11/09/18 at 09:15; Stop 11/09/18 at 09:16 ; Status DC Midazolam HCl (Versed) 2 mg 1X ONCE IV Last administered on 11/09/18 10:43; Start 11/09/18 at 09:15; Stop 11/09/18 at 09:16; Status DC Fentanyl Citrate (Fentanyl 2ml Vial) 100 mcg 1X ONCE IV Last administered on 10:44; Start 11/09/18 at 09:15; Stop 11/09/18 at 09:16; Status DC Iodixanol (Visipaque 320) 100 ml 1X ONCE IART Last administered on 11/09/18 10:44; Start 11/09/18 at 09:15; Stop 11/09/18 at 09:16; Status DC Heparin Sodium (Porcine) (Heparin Sodium) 7,500 unit 1X ONCE IV Last administered on 11/09/18 10:47; Start 11/09/18 at 09:15; Stop 11/09/18 at 09:16 ; Status DC Diphenhydramine HCl (Benadryl) 50 mg 1X ONCE IVP Last administered on 10:44; Start 11/09/18 at 09:15; Stop 11/09/18 at 09:16; Status DC Iodixanol (Visipaque 320) 50 ml 1X ONCE IART Last administered on 11/09/18 10 :45; Start 11/09/18 at 09:15; Stop 11/09/18 at 09:16; Status DC Info (CONTRAST GIVEN -- Rx MONITORING) 1 each PRN DAILY PRN MC SEE COMMENTS; Start 11/09/18 at 09:15; Stop 11/11/18 at 09:14; Status DC Heparin Sodium/ Sodium Chloride (HEPARIN for ARTERIAL LINE FLUSH) 1,000 unit 1X ONCE IV Last administered on 11/09/18 10:41; Start 11/09/18 at 09:30; Stop 11/09/18 at 09:31; Status DC Heparin Sodium/ Sodium Chloride (HEPARIN for ARTERIAL LINE FLUSH) 1,000 unit 1X ONCE IV Last administered on 11/09/18at 10:42; Start 11/09/18 at 09:30; Stop 11/09/18 at 09:31; Status DC Iodixanol (Visipaque 320) 100 ml STK-MED ONCE .ROUTE ; Start 11/09/18 at 09:41; Stop 11/09/18 at 09:42; Status DC Midazolam HCl (Versed) 2 mg STK-MED ONCE .ROUTE ; Start 11/09/18 at 09:50; Stop 11/09/18 at 09:51; Status DC Heparin Sodium/ Sodium Chloride 500 ml @ As Directed STK-MED ONCE .ROUTE ; Start 11/09/18 at 09:56; Stop 11/09/18 at 09:57; Status DC Iodixanol (Visipaque 320) 50 ml STK-MED ONCE .ROUTE ; Start 11/09/18 at 10:00; Stop 11/09/18 at 10:01; Status DC Clopidogrel Bisulfate (Plavix) 300 mg 1X ONCE PO Last administered on at 18:19; Start 11/09/18 at 12:15; Stop 11/09/18 at 12:16; Status DC Clopidogrel Bisulfate (Plavix) 75 mg 1X ONCE PO Last administered on at 19:53; Start 11/10/18 at 08:00; Stop 11/10/18 at 08:01; Status DC Albuterol Sulfate (Ventolin Neb Soln) 2.5 mg PRN Q6HRS PRN INH SHORTNESS OF BREATH; Start 11/09/18 at 14:30 Amlodipine Besylate (Norvasc) 10 mg PRN DAILY PRN PO HYPERTENSION, SEE COMMENTS ; Start 11/09/18 at 14:30; Stop 11/13/18 at 11:48; Status DC Aspirin (Ecotrin) 81 mg DAILY PO Last administered on 11/14/18at 08:54; Start at 09:00 Cinacalcet (Sensipar) 30 mg DAILYWSUP PO Last administered on 11/14/18at 17:17; Start 11/09/18 at 17:00 Clonidine HCl (Catapres Tts-2) 1 patch WEEKLY TD Last administered on at 17:00; Start 11/10/18 at 09:00 Clonidine HCl (Catapres) 0.2 mg BID PO ; Start 11/09/18 at 21:00; Status UNV Clopidogrel Bisulfate (Plavix) 75 mg DAILY PO Last administered on 11/14/18 08 :54; Start 11/11/18 at 09:00 Fentanyl (Duragesic 25mcg/ Hr Patch) 1 patch Q72H TD ; Start 11/09/18 at 15:00 Ferrous Sulfate (Feosol) 325 mg DAILY PO Last administered on 11/14/18 08:54; Start 11/09/18 at 15:00 Furosemide (Lasix) 40 mg DAILY PO Last administered on 11/13/18 08:05; Start 11/09/18 at 15:00 Sevelamer Carbonate (Renvela) 1,600 mg TIDWMEALHC PO Last administered on 21:39; Start 11/09/18 at 17:00 Calcium Acetate (Phoslo) 1,334 mg TIDWMEALS PO Last administered on 11/14/18 17:18; Start 11/09/18 at 17:00 Losartan Potassium (Cozaar) 100 mg DAILY PO Last administered on 11/12/18 09: 07; Start 11/09/18 at 15:00 Atorvastatin Calcium (Lipitor) 5 mg QHS PO Last administered on 11/14/18 21:39 ; Start 11/09/18 at 21:00 Vitamin B Complex/ Vitamin C (Hyacinth-Brad) 1 tab DAILY PO Last administered on 08:54; Start 11/09/18 at 15:00 Sodium Chloride 1,000 ml @ 1,000 mls/hr Q1H PRN IV hypotension; Start 11/10/18 at 10:45; Stop 11/10/18 at 16:44; Status DC Sodium Chloride 1,000 ml @ 400 mls/hr Q2H30M PRN IV PATENCY; Start 11/10/18 at 10:45; Stop 11/10/18 at 22:44; Status DC Info (PHARMACY MONITORING -- do not chart) 1 each PRN DAILY PRN MC SEE COMMENTS ; Start 11/10/18 at 10:45; Stop 11/10/18 at 10:49; Status DC Info (PHARMACY MONITORING -- do not chart) 1 each PRN DAILY PRN MC SEE COMMENTS ; Start 11/10/18 at 10:45 Oxycodone/ Acetaminophen (Percocet 5/325) 1 tab PRN Q4HRS PRN PO PAIN SEVERE Last administered on 11/14/18at 08:54; Start 11/10/18 at 16:00 Multi-Ingred Cream/Lotion/Oil/ Oint (Hydrocerin Cream) 1 gasper BID TP Last administered on 11/14/18at 21:39; Start 11/11/18 at 14:00 Diclofenac Sodium (Voltaren) 1 gasper BID TP Last administered on 11/14/18at 21:39 ; Start 11/11/18 at 14:30 Sodium Chloride 1,000 ml @ 1,000 mls/hr Q1H PRN IV hypotension; Start 11/12/18 at 13:10; Stop 11/12/18 at 19:09; Status DC Albumin Human 200 ml @ 200 mls/hr 1X PRN PRN IV Hypotension; Start 11/12/18 at 13:15; Stop 11/12/18 at 19:14; Status DC Acetaminophen (Tylenol) 500 mg 1X PRN PRN PO MILD PAIN / TEMP; Start 11/12/18 at 13:15; Stop 11/13/18 at 13:14; Status DC Diphenhydramine HCl (Benadryl) 25 mg 1X PRN PRN IV ITCHING; Start 11/12/18 at 13:15; Stop 11/13/18 at 13:14; Status DC Diphenhydramine HCl (Benadryl) 25 mg 1X PRN PRN IV ITCHING; Start 11/12/18 at 13:15; Stop 11/13/18 at 13:14; Status DC Sodium Chloride 1,000 ml @ 400 mls/hr Q2H30M PRN IV PATENCY; Start 11/12/18 at 13:10; Stop 11/13/18 at 01:09; Status DC Info (PHARMACY MONITORING -- do not chart) 1 each PRN DAILY PRN MC SEE COMMENTS ; Start 11/12/18 at 13:15; Status UNV Amlodipine Besylate (Norvasc) 5 mg PRN DAILY PRN PO HYPERTENSION, SEE COMMENTS ; Start 11/13/18 at 12:00 Amino Acids/ Glycerin/ Electrolytes 1,000 ml @ 80 mls/hr [id number] IV ; Start at 12:00; Stop 11/14/18 at 13:07; Status DC Darbepoetin Filipe (Aranesp) 100 mcg WEEKLYHS SQ Last administered on 11/13/18at 20:50; Start 11/13/18 at 21:00 Magnesium Sulfate 50 ml @ 25 mls/hr PRN DAILY PRN IV for Mag < 1.7 on am labs; Start 11/13/18 at 12:00 Sodium Chloride 1,000 ml @ 1,000 mls/hr Q1H PRN IV hypotension; Start 11/15/18 at 08:42; Stop 11/15/18 at 14:41 Sodium Chloride 1,000 ml @ 400 mls/hr Q2H30M PRN IV PATENCY; Start 11/15/18 at 08:42; Stop 11/15/18 at 20:41 Info (PHARMACY MONITORING -- do not chart) 1 each PRN DAILY PRN MC SEE COMMENTS ; Start 11/15/18 at 08:45; Status UNV Info (PHARMACY MONITORING -- do not chart) 1 each PRN DAILY PRN MC SEE COMMENTS ; Start 11/15/18 at 08:45 Active Scripts Active Proair Hfa Inhaler (Albuterol Sulfate) 8.5 Gm Hfa.aer.ad 1 Puff INH PRN Q6HRS PRN 14 Days Reported FENTANYL 25mcg/hr (Fentanyl) 1 Each Patch.td72 1 Patch TD Q72H Clopidogrel (Clopidogrel Bisulfate) 75 Mg Tablet 1 Tab PO DAILY Catapres-Tts 2 (Clonidine) 1 Each Patch.tdwk 1 Each TD WEEKLY Clonidine Hcl 0.2 Mg Tablet 0.2 Mg PO BID Dialyvite [place] D Tablet (Multivitamin, Min Cmb#25/Fa/D3) 1 Each Tablet 1 Each PO DAILY Renvela (Sevelamer Carbonate) 800 Mg Tablet 2 Tab PO TIDWMEALHC Sensipar (Cinacalcet Hcl) 30 Mg Tablet 1 Tab PO DAILYWSUP Calcium Acetate 667 Mg Tablet 1,334 Mg PO TIDWMEALS Lovastatin 10 Mg Tablet 10 Mg PO HS Losartan Potassium 100 Mg Tablet 100 Mg PO DAILY Amlodipine Besylate 10 Mg Tablet 10 Mg PO PRN DAILY PRN Ferrous Sulfate 325 Mg Tablet 1 Tab PO DAILY Lasix (Furosemide) 40 Mg Tablet 1 Tab PO DAILY Aspir 81 (Aspirin) 81 Mg Tablet. 1 Tab PO DAILY Vitals/I & O Vital Sign - Last 24 Hours 11/14/18 11/14/18 11/14/18 11/14/18 09:54 11:00 15:00 19:00 Temp 98.1 98.1 98.1 98.1 98.1 98.1 Pulse 65 73 68 Resp 18 18 18 18 B/P (MAP) 121/42 (68) 123/67 (85) 117/43 (67) Pulse Ox 96 95 96 98 O2 Delivery Room Air Room Air Room Air Room Air O2 Flow Rate 2.0 11/14/18 11/14/18 11/15/18 11/15/18 20:00 23:00 03:00 07:00 Temp 98.5 98.1 98.1 98.5 98.1 98.1 Pulse 76 76 70 Resp 18 18 17 B/P (MAP) 116/62 (80) 110/29 (56) 117/40 (65) Pulse Ox 95 97 92 O2 Delivery Room Air Room Air Room Air Room Air Intake and Output 11/14/18 11/14/18 11/15/18 14:59 22:59 06:59 Intake Total 240 ml 0 ml 50 ml Balance 240 ml 0 ml 50 ml CASH WRIGHT MD Nov 15, 2018 09:11
--- NOTE | 2018-11-15 10:04 | NUR ---
LATA spoke with RN who reported pt's granddaughter had called in to request what time she can come to [place] picker pt. LATA phoned pt's granddaughter, Jax, phone: [phone] and left a voice mail requesting a call back. Jose Manuel for SNU pending. Pt will need OT eval today but currently is dialyzing. EPHRAIM ALEGRE. Addendum: 11/15/18 at 1013 by GENO GUIDO LATA received a phone call from pt's granddaughter and she is agreeable with PP pending insurance approval. She reported she will come in to visit pt today.
--- NOTE | 2018-11-15 12:10 | PDOC ---
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 Case discussed with renal So far AV fistula is now working Patient is a vasculopath needing to stent the right iliac and also the left subclavian artery Plan: P Place tomorrow Discussed with social work and renal Vitals Vitals Vital Signs Date Time Temp Pulse Resp B/P (MAP) Pulse Ox O2 Delivery O2 Flow Rate FiO2 11/15/18 11:54 98.4 75 17 133/64 (87) 92 Room Air 98.4 11/14/18 09:54 2.0 Physical Exam General: Alert, Oriented X3, Cooperative, No acute distress Heart: Regular rate Lungs: Other (rales, volume imrpoved, ) Abdomen: Normal bowel sounds, Soft Extremities: No clubbing, No edema, Normal pulses Skin: No breakdown, No significant lesion Labs LABS Laboratory Tests Test 11/14/18 16:34 11/14/18 20:39 11/15/18 06:53 11/15/18 06:55 Glucose (Fingerstick) 109 mg/dL (70-99) 124 mg/dL (70-99) Magnesium Level 2.7 mg/dL (1.8-2.4) Hemoglobin 9.9 g/dL (12.0-15.5) Test 11/15/18 07:19 11/15/18 11:43 Glucose (Fingerstick) 92 mg/dL (70-99) 84 mg/dL (70-99) Review of Systems Review of Systems weak, Poor historian, unreliable ROS Assessment and Plan Assessmemt and Plan Problems Medical Problems: (1) AV graft malfunction Status: Acute Comment Review of Relevant I have reviewed the following items vicente (where applicable) has been applied. Labs Laboratory Tests Test 11/13/18 16:11 11/13/18 20:00 11/14/18 04:00 11/14/18 07:42 Glucose (Fingerstick) 134 mg/dL (70-99) 151 mg/dL (70-99) 89 mg/dL (70-99) Magnesium Level 2.5 mg/dL (1.8-2.4) Test 11/14/18 11:27 11/14/18 16:34 11/14/18 20:39 11/15/18 06:53 Glucose (Fingerstick) 114 mg/dL (70-99) 109 mg/dL (70-99) 124 mg/dL (70-99) Magnesium Level 2.7 mg/dL (1.8-2.4) Test 11/15/18 06:55 11/15/18 07:19 11/15/18 11:43 Hemoglobin 9.9 g/dL (12.0-15.5) Glucose (Fingerstick) 92 mg/dL (70-99) 84 mg/dL (70-99) Laboratory Tests Test 11/14/18 16:34 11/14/18 20:39 11/15/18 06:53 11/15/18 06:55 Glucose (Fingerstick) 109 mg/dL (70-99) 124 mg/dL (70-99) Magnesium Level 2.7 mg/dL (1.8-2.4) Hemoglobin 9.9 g/dL (12.0-15.5) Test 11/15/18 07:19 11/15/18 11:43 Glucose (Fingerstick) 92 mg/dL (70-99) 84 mg/dL (70-99) Medications Current Medications Fentanyl Citrate (Fentanyl 2ml Vial) 50 mcg 1X ONCE IV Last administered on at 03:35; Start 11/09/18 at 03:30; Stop 11/09/18 at 03:32; Status DC Fentanyl Citrate (Fentanyl 2ml Vial) 50 mcg PRN Q2HR PRN IV SEVERE PAIN; Start 11/09/18 at 05:45; Stop 11/10/18 at 05:44; Status DC Heparin Sodium/ Dextrose 500 ml @ 0 mls/hr CONT PRN IV SEE I/O RECORD Last administered on 11/09/18at 06:00; Start 11/09/18 at 05:45; Stop 11/09/18 at 12:40 ; Status DC Lorazepam (Ativan) 0.5 mg 1X ONCE IV Last administered on 11/09/18at 05:57; Start 11/09/18 at 06:00; Stop 11/09/18 at 06:01; Status DC Info (Anti-Coagulation Monitoring By Pharmacy) 1 each PRN DAILY PRN MC SEE COMMENTS Last administered on 11/09/18at 05:58; Start 11/09/18 at 05:45; Stop at 12:41; Status DC Iodixanol (Visipaque 320) 100 ml STK-MED ONCE .ROUTE ; Start 11/09/18 at 07:15; Stop 11/09/18 at 07:16; Status DC Lidocaine/Sodium Bicarbonate (Buffered Lidocaine 1%) 3 ml STK-MED ONCE .ROUTE ; Start 11/09/18 at 07:15; Stop 11/09/18 at 07:16; Status DC Heparin Sodium/ Sodium Chloride 1,000 ml @ As Directed STK-MED ONCE .ROUTE ; Start 11/09/18 at 07:15; Stop 11/09/18 at 07:16; Status DC Iodixanol (Visipaque 320) 100 ml STK-MED ONCE .ROUTE ; Start 11/09/18 at 07:44; Stop 11/09/18 at 07:45; Status DC Iodixanol (Visipaque 320) 50 ml STK-MED ONCE .ROUTE ; Start 11/09/18 at 07:44; Stop 11/09/18 at 07:45; Status DC Iodixanol (Visipaque 320) 100 ml STK-MED ONCE .ROUTE ; Start 11/09/18 at 07:47; Stop 11/09/18 at 07:48; Status DC Midazolam HCl (Versed) 2 mg STK-MED ONCE .ROUTE ; Start 11/09/18 at 07:48; Stop 11/09/18 at 07:49; Status DC Fentanyl Citrate (Fentanyl 2ml Vial) 100 mcg STK-MED ONCE .ROUTE ; Start at 07:48; Stop 11/09/18 at 07:49; Status DC Heparin Sodium (Porcine) (Heparin Sodium) 10,000 unit STK-MED ONCE .ROUTE ; Start 11/09/18 at 08:03; Stop 11/09/18 at 08:04; Status DC Diphenhydramine HCl (Benadryl) 50 mg STK-MED ONCE .ROUTE ; Start 11/09/18 at 08: 28; Stop 11/09/18 at 08:29; Status DC Hydromorphone HCl (Dilaudid) 2 mg 1X ONCE IV Last administered on 11/09/18 10 :43; Start 11/09/18 at 08:30; Stop 11/09/18 at 08:31; Status DC Heparin Sodium/ Sodium Chloride 500 ml @ As Directed STK-MED ONCE .ROUTE ; Start 11/09/18 at 08:59; Stop 11/09/18 at 09:00; Status DC Iodixanol (Visipaque 320) 100 ml STK-MED ONCE .ROUTE ; Start 11/09/18 at 09:04; Stop 11/09/18 at 09:05; Status DC Heparin Sodium/ Sodium Chloride (HEPARIN for ARTERIAL LINE FLUSH) 1,000 unit 1X ONCE IART Last administered on 11/09/18 10:40; Start 11/09/18 at 09:15; Stop 11/09/18 at 09:16; Status DC Heparin Sodium/ Sodium Chloride (HEPARIN for ARTERIAL LINE FLUSH) 1,000 unit 1X ONCE IART Last administered on 11/09/18 10:40; Start 11/09/18 at 09:15; Stop 11/09/18 at 09:16; Status DC Lidocaine/Sodium Bicarbonate (Buffered Lidocaine 1%) 6 ml 1X ONCE IJ Last administered on 11/09/18 10:42; Start 11/09/18 at 09:15; Stop 11/09/18 at 09:16 ; Status DC Midazolam HCl (Versed) 2 mg 1X ONCE IV Last administered on 11/09/18 10:43; Start 11/09/18 at 09:15; Stop 11/09/18 at 09:16; Status DC Fentanyl Citrate (Fentanyl 2ml Vial) 100 mcg 1X ONCE IV Last administered on 10:44; Start 11/09/18 at 09:15; Stop 11/09/18 at 09:16; Status DC Iodixanol (Visipaque 320) 100 ml 1X ONCE IART Last administered on 11/09/18 10:44; Start 11/09/18 at 09:15; Stop 11/09/18 at 09:16; Status DC Heparin Sodium (Porcine) (Heparin Sodium) 7,500 unit 1X ONCE IV Last administered on 11/09/18 10:47; Start 11/09/18 at 09:15; Stop 11/09/18 at 09:16 ; Status DC Diphenhydramine HCl (Benadryl) 50 mg 1X ONCE IVP Last administered on 10:44; Start 11/09/18 at 09:15; Stop 11/09/18 at 09:16; Status DC Iodixanol (Visipaque 320) 50 ml 1X ONCE IART Last administered on 11/09/18 10 :45; Start 11/09/18 at 09:15; Stop 11/09/18 at 09:16; Status DC Info (CONTRAST GIVEN -- Rx MONITORING) 1 each PRN DAILY PRN MC SEE COMMENTS; Start 11/09/18 at 09:15; Stop 11/11/18 at 09:14; Status DC Heparin Sodium/ Sodium Chloride (HEPARIN for ARTERIAL LINE FLUSH) 1,000 unit 1X ONCE IV Last administered on 11/09/18 10:41; Start 11/09/18 at 09:30; Stop 11/09/18 at 09:31; Status DC Heparin Sodium/ Sodium Chloride (HEPARIN for ARTERIAL LINE FLUSH) 1,000 unit 1X ONCE IV Last administered on 11/09/18 10:42; Start 11/09/18 at 09:30; Stop 11/09/18 at 09:31; Status DC Iodixanol (Visipaque 320) 100 ml STK-MED ONCE .ROUTE ; Start 11/09/18 at 09:41; Stop 11/09/18 at 09:42; Status DC Midazolam HCl (Versed) 2 mg STK-MED ONCE .ROUTE ; Start 11/09/18 at 09:50; Stop 11/09/18 at 09:51; Status DC Heparin Sodium/ Sodium Chloride 500 ml @ As Directed STK-MED ONCE .ROUTE ; Start 11/09/18 at 09:56; Stop 11/09/18 at 09:57; Status DC Iodixanol (Visipaque 320) 50 ml STK-MED ONCE .ROUTE ; Start 11/09/18 at 10:00; Stop 11/09/18 at 10:01; Status DC Clopidogrel Bisulfate (Plavix) 300 mg 1X ONCE PO Last administered on at 18:19; Start 11/09/18 at 12:15; Stop 11/09/18 at 12:16; Status DC Clopidogrel Bisulfate (Plavix) 75 mg 1X ONCE PO Last administered on 19:53; Start 11/10/18 at 08:00; Stop 11/10/18 at 08:01; Status DC Albuterol Sulfate (Ventolin Neb Soln) 2.5 mg PRN Q6HRS PRN INH SHORTNESS OF BREATH; Start 11/09/18 at 14:30 Amlodipine Besylate (Norvasc) 10 mg PRN DAILY PRN PO HYPERTENSION, SEE COMMENTS ; Start 11/09/18 at 14:30; Stop 11/13/18 at 11:48; Status DC Aspirin (Ecotrin) 81 mg DAILY PO Last administered on 11/14/18 08:54; Start at 09:00 Cinacalcet (Sensipar) 30 mg DAILYWSUP PO Last administered on 11/14/18 17:17; Start 11/09/18 at 17:00 Clonidine HCl (Catapres Tts-2) 1 patch WEEKLY TD Last administered on 17:00; Start 11/10/18 at 09:00 Clonidine HCl (Catapres) 0.2 mg BID PO ; Start 11/09/18 at 21:00; Status UNV Clopidogrel Bisulfate (Plavix) 75 mg DAILY PO Last administered on 11/14/18 08 :54; Start 11/11/18 at 09:00 Fentanyl (Duragesic 25mcg/ Hr Patch) 1 patch Q72H TD ; Start 11/09/18 at 15:00 Ferrous Sulfate (Feosol) 325 mg DAILY PO Last administered on 11/14/18 08:54; Start 11/09/18 at 15:00 Furosemide (Lasix) 40 mg DAILY PO Last administered on 11/13/18 08:05; Start 11/09/18 at 15:00 Sevelamer Carbonate (Renvela) 1,600 mg TIDWMEALHC PO Last administered on 21:39; Start 11/09/18 at 17:00 Calcium Acetate (Phoslo) 1,334 mg TIDWMEALS PO Last administered on 11/14/18 17:18; Start 11/09/18 at 17:00 Losartan Potassium (Cozaar) 100 mg DAILY PO Last administered on 11/12/18 09: 07; Start 11/09/18 at 15:00 Atorvastatin Calcium (Lipitor) 5 mg QHS PO Last administered on 11/14/18 21:39 ; Start 11/09/18 at 21:00 Vitamin B Complex/ Vitamin C (Hyacinth-Brad) 1 tab DAILY PO Last administered on 08:54; Start 11/09/18 at 15:00 Sodium Chloride 1,000 ml @ 1,000 mls/hr Q1H PRN IV hypotension; Start 11/10/18 at 10:45; Stop 11/10/18 at 16:44; Status DC Sodium Chloride 1,000 ml @ 400 mls/hr Q2H30M PRN IV PATENCY; Start 11/10/18 at 10:45; Stop 11/10/18 at 22:44; Status DC Info (PHARMACY MONITORING -- do not chart) 1 each PRN DAILY PRN MC SEE COMMENTS ; Start 11/10/18 at 10:45; Stop 11/10/18 at 10:49; Status DC Info (PHARMACY MONITORING -- do not chart) 1 each PRN DAILY PRN MC SEE COMMENTS ; Start 11/10/18 at 10:45 Oxycodone/ Acetaminophen (Percocet 5/325) 1 tab PRN Q4HRS PRN PO PAIN SEVERE Last administered on 11/14/18 08:54; Start 11/10/18 at 16:00 Multi-Ingred Cream/Lotion/Oil/ Oint (Hydrocerin Cream) 1 gasper BID TP Last administered on 11/14/18 21:39; Start 11/11/18 at 14:00 Diclofenac Sodium (Voltaren) 1 gasper BID TP Last administered on 11/14/18 21:39 ; Start 11/11/18 at 14:30 Sodium Chloride 1,000 ml @ 1,000 mls/hr Q1H PRN IV hypotension; Start 11/12/18 at 13:10; Stop 11/12/18 at 19:09; Status DC Albumin Human 200 ml @ 200 mls/hr 1X PRN PRN IV Hypotension; Start 11/12/18 at 13:15; Stop 11/12/18 at 19:14; Status DC Acetaminophen (Tylenol) 500 mg 1X PRN PRN PO MILD PAIN / TEMP; Start 11/12/18 at 13:15; Stop 11/13/18 at 13:14; Status DC Diphenhydramine HCl (Benadryl) 25 mg 1X PRN PRN IV ITCHING; Start 11/12/18 at 13:15; Stop 11/13/18 at 13:14; Status DC Diphenhydramine HCl (Benadryl) 25 mg 1X PRN PRN IV ITCHING; Start 11/12/18 at 13:15; Stop 11/13/18 at 13:14; Status DC Sodium Chloride 1,000 ml @ 400 mls/hr Q2H30M PRN IV PATENCY; Start 11/12/18 at 13:10; Stop 11/13/18 at 01:09; Status DC Info (PHARMACY MONITORING -- do not chart) 1 each PRN DAILY PRN MC SEE COMMENTS ; Start 11/12/18 at 13:15; Status UNV Amlodipine Besylate (Norvasc) 5 mg PRN DAILY PRN PO HYPERTENSION, SEE COMMENTS ; Start 11/13/18 at 12:00 Amino Acids/ Glycerin/ Electrolytes 1,000 ml @ 80 mls/hr [id number] IV ; Start at 12:00; Stop 11/14/18 at 13:07; Status DC Darbepoetin Filipe (Aranesp) 100 mcg WEEKLYHS SQ Last administered on 11/13/18at 20:50; Start 11/13/18 at 21:00 Magnesium Sulfate 50 ml @ 25 mls/hr PRN DAILY PRN IV for Mag < 1.7 on am labs; Start 11/13/18 at 12:00 Sodium Chloride 1,000 ml @ 1,000 mls/hr Q1H PRN IV hypotension; Start 11/15/18 at 08:42; Stop 11/15/18 at 14:41 Sodium Chloride 1,000 ml @ 400 mls/hr Q2H30M PRN IV PATENCY; Start 11/15/18 at 08:42; Stop 11/15/18 at 20:41 Info (PHARMACY MONITORING -- do not chart) 1 each PRN DAILY PRN MC SEE COMMENTS ; Start 11/15/18 at 08:45; Status UNV Info (PHARMACY MONITORING -- do not chart) 1 each PRN DAILY PRN MC SEE COMMENTS ; Start 11/15/18 at 08:45 Active Scripts Active Proair Hfa Inhaler (Albuterol Sulfate) 8.5 Gm Hfa.aer.ad 1 Puff INH PRN Q6HRS PRN 14 Days Reported FENTANYL 25mcg/hr (Fentanyl) 1 Each Patch.td72 1 Patch TD Q72H Clopidogrel (Clopidogrel Bisulfate) 75 Mg Tablet 1 Tab PO DAILY Catapres-Tts 2 (Clonidine) 1 Each Patch.tdwk 1 Each TD WEEKLY Clonidine Hcl 0.2 Mg Tablet 0.2 Mg PO BID Dialyvite Darling D Tablet (Multivitamin, Min Cmb#25/Fa/D3) 1 Each Tablet 1 Each PO DAILY Renvela (Sevelamer Carbonate) 800 Mg Tablet 2 Tab PO TIDWMEALHC Sensipar (Cinacalcet Hcl) 30 Mg Tablet 1 Tab PO DAILYWSUP Calcium Acetate 667 Mg Tablet 1,334 Mg PO TIDWMEALS Lovastatin 10 Mg Tablet 10 Mg PO HS Losartan Potassium 100 Mg Tablet 100 Mg PO DAILY Amlodipine Besylate 10 Mg Tablet 10 Mg PO PRN DAILY PRN Ferrous Sulfate 325 Mg Tablet 1 Tab PO DAILY Lasix (Furosemide) 40 Mg Tablet 1 Tab PO DAILY Aspir 81 (Aspirin) 81 Mg Tablet. 1 Tab PO DAILY Vitals/I & O Vital Sign - Last 24 Hours 11/14/18 11/14/18 11/14/18 11/14/18 15:00 19:00 20:00 23:00 Temp 98.1 98.1 98.5 98.1 98.1 98.5 Pulse 73 68 76 Resp 18 18 18 B/P (MAP) 123/67 (85) 117/43 (67) 116/62 (80) Pulse Ox 96 98 95 O2 Delivery Room Air Room Air Room Air Room Air 11/15/18 11/15/18 11/15/18 03:00 07:00 11:54 Temp 98.1 98.1 98.4 98.1 98.1 98.4 Pulse 76 70 75 Resp 18 17 17 B/P (MAP) 110/29 (56) 117/40 (65) 133/64 (87) Pulse Ox 97 92 92 O2 Delivery Room Air Room Air Room Air Intake and Output 11/14/18 11/14/18 11/15/18 15:00 23:00 07:00 Intake Total 240 ml 0 ml 50 ml Balance 240 ml 0 ml 50 ml TERMULO,RADHA Y MD Nov 15, 2018 12:10
--- NOTE | 2018-11-15 12:38 | PDOC ---
Renal-Progress Notes Subjective Notes Notes SOMNOLENT AND RESTLESS History of Present Illness Hx of present illness STABLE Vitals Vitals Vital Signs Date Time Temp Pulse Resp B/P (MAP) Pulse Ox O2 Delivery O2 Flow Rate FiO2 11/15/18 11:54 98.4 75 17 133/64 (87) 92 Room Air 98.4 11/14/18 09:54 2.0 Weight Weight [ ] I.O. Intake and Output Intake and Output 11/15/18 06:59 Intake Total 290 ml Balance 290 ml Intake Oral 290 ml # Bowel Movements 1 Labs Labs Laboratory Tests Test 11/14/18 16:34 11/14/18 20:39 11/15/18 06:53 11/15/18 06:55 Glucose (Fingerstick) 109 mg/dL (70-99) 124 mg/dL (70-99) Magnesium Level 2.7 mg/dL (1.8-2.4) Hemoglobin 9.9 g/dL (12.0-15.5) Test 11/15/18 07:19 11/15/18 11:43 Glucose (Fingerstick) 92 mg/dL (70-99) 84 mg/dL (70-99) Review of Systems Constitutional: yes: other (CONFUSED) Physical Exam General Appearance: no apparent distress Skin: warm Respiratory: bilateral CTA Heart: S1S2 Abdomen: soft, bowel sounds present Genitourinary: bladder flat Extremities: pulses present Neurology: alert, confused Assessment Assessment IMP ESRD HAND [id number] TO SUBCLAVIAN ARTERY STENOSIS S/P STENT OF THE SUBCLAVIAN ARTERY-RESOLUTION OF HAND ISCHEMIA S/P TX OF RIGHT ILIAC ARTERY STENOSIS ENCEPHALOPATHY-BETTER ANEMIA DM II HTN PLAN HD TODAY UF TO [facility] D/C SOON WILL FOLLOW CARLY ANDERSON MD Nov 15, 2018 12:38
[2018-11-15] MEDS: FERROUS SULFATE 325 MG TABLET. PO SCH (13:36)
[2018-11-15] MEDS: FOLIC/VIT B COMP W-C (RENAL) TABLET. PO SCH (13:36)
[2018-11-15] MEDS: FUROSEMIDE 40 MG TABLET. PO SCH (13:36)
[2018-11-15] MEDS: CLOPIDOGREL BISULFATE 75 MG TABLET PO SCH (13:36)
[2018-11-15] MEDS: ASPIRIN ENTERIC COATED 81 MG TABLET.DR. PO SCH (13:36)
[2018-11-15] MEDS: LOSARTAN POTASSIUM 50 MG TABLET. PO SCH (13:37)
[2018-11-15] MEDS: fentaNYL 25MCG/HR PATCH 1 PATCH PATCH.TD72 TD SCH (15:00)
--- NOTE | 2018-11-15 15:52 | NUR ---
LATA following pt. LATA notified by Yessi, pt insurance is changing in the 3 days. Spoke with pt and she is not aware of situation. Spoke with pt's granddaughter via phone and she reported they did not sign up for a different insurance. Granddaughter reports last notification they received from [facility] was on 10/28/18 and there was no indication regarding switching. SW informed granddaughter to call insurance to follow up on matter and granddaughter verbalized understanding. LATA spoke with Kyra GUIDO at [facility] and was informed pt has secondary insurance with [facility] Medicaid. LATA E-mailed Amberly at registration regarding this. Auth still pending. Will continue to follow.
[2018-11-15] MEDS: oxyCODONE/APAP 5/325 1 TAB TABLET PO PRN (17:24)
[2018-11-15] MEDS: CINACALCET HCL 30 MG TABLET PO SCH (17:25)
[2018-11-15] MEDS: ATORVASTATIN CALCIUM 10 MG TABLET. PO SCH (20:57)
[2018-11-16 02:59] VITALS: BP 110/35
[2018-11-16 05:36] LABS: ALBUMIN 2.5 g/dL (3.4-5.0); CALCIUM 9.2 mg/dL (8.5-10.1); CREATININE 6.2 mg/dL (0.6-1.0); GFR 7.7; MAGNESIUM 2.5 mg/dL (1.8-2.4); PHOSPHORUS 2.5 mg/dL (2.6-4.7); POTASSIUM 4.3 mmol/L (3.5-5.1)
[2018-11-16 07:00] VITALS: BP 119/48
[2018-11-16 08:30] VITALS: BP 110/35
[2018-11-16] MEDS: FERROUS SULFATE 325 MG TABLET. PO SCH (08:30)
[2018-11-16] MEDS: FOLIC/VIT B COMP W-C (RENAL) TABLET. PO SCH (08:30)
[2018-11-16] MEDS: FUROSEMIDE 40 MG TABLET. PO SCH (08:30)
[2018-11-16] MEDS: MINERAL OIL/PETROLATUM TOPICAL CREAM 113GM JAR. TP SCH (08:30)
[2018-11-16] MEDS: SEVELAMER CARBONATE 800 MG TABLET. PO SCH (08:30)
[2018-11-16] MEDS: LOSARTAN POTASSIUM 50 MG TABLET. PO SCH (08:30)
[2018-11-16] MEDS: CALCIUM ACETATE 667 MG CAPSULE PO SCH (08:30)
[2018-11-16] MEDS: CLOPIDOGREL BISULFATE 75 MG TABLET PO SCH (08:30)
[2018-11-16] MEDS: DICLOFENAC SODIUM 1% TOPICAL GEL 100GM TUBE. TP SCH (08:32)
[2018-11-16] MEDS: oxyCODONE/APAP 5/325 1 TAB TABLET PO PRN (08:40)
--- NOTE | 2018-11-16 08:50 | DISCH ---
DISCHARGE DISCHARGE INFORMATION: DISCHARGE DATE: Nov 16, 2018 FINAL DIAGNOSIS Problems Medical Problems: (1) AV graft malfunction Status: Acute CONDITION ON DISCHARGE: Stable CODE STATUS: Code Status: Full CARE HOME: SNF STAY <30 DAYS: Yes HOSPICE: HOSPICE: No HOSPICE EVAL & TREAT: No LTAC: ADMIT TO LTAC: No POST DISCHARGE ORDERS: ACTIVITY ORDERS: Activity as tolerated WEIGHT BEARING STATUS: As tolerated DIET AFTER DISCHARGE: hepatic WOUND/INCISION CARE: Do not change dressing CHECKS AFTER DISCHARGE: CHECKS AFTER DISCHARGE: Check blood press - daily, Check blood sugar, ac/hs, Check your Temp as needed, Weigh Yourself Daily FOLLOW-UP: PHYSICIAN FOLLOW-UP: primary care < 2 weeks ADDITIONAL FOLLOW-UP: PCP as needed TREATMENT/EQUIPMENT ORDERS: ADAPTIVE EQUIPMENT NEEDED: None, Front wheeled walker Physical Therapy For: Evalulation/Treatment Occupational Therapy For: Evaluation/Treatment Speech Language Pathology For: Evaluation/Treatment DISCHARGE MEDICATIONS: Home Meds Active Scripts Albuterol Sulfate (PROAIR HFA INHALER) 8.5 Gm Hfa.aer.ad, 1 PUFF INH PRN Q6HRS PRN for SHORTNESS OF BREATH for 14 Days, INHALER 0 Refills Prov:RADHA BHARDWAJ MD 08/15/18 Reported Medications Fentanyl (FENTANYL 25mcg/hr) 1 Each Patch.td72, 1 PATCH TD Q72H for PAIN, #5 PATCH 0 Refills 11/02/18 Clopidogrel Bisulfate (CLOPIDOGREL) 75 Mg Tablet, 1 TAB PO DAILY for PVD, #90 TAB 1 Refill 10/27/18 Clonidine (CATAPRES-TTS 2) 1 Each Patch.tdwk, 1 EACH TD WEEKLY, PATCH 11/03/17 Clonidine Hcl (CLONIDINE HCL) 0.2 Mg Tablet, 0.2 MG PO BID, TAB 11/02/17 Multivitamin, Min Cmb#25/Fa/D3 (DIALYVITE SUPREME D TABLET) 1 Each Tablet, 1 EACH PO DAILY, TAB 01/19/17 Sevelamer Carbonate (RENVELA) 800 Mg Tablet, 2 TAB PO TIDWMEALHC, #540 TAB 3 Refills 01/19/17 Cinacalcet Hcl (SENSIPAR) 30 Mg Tablet, 1 TAB PO DAILYWSUP, #90 TAB 3 Refills 01/17/17 Calcium Acetate (CALCIUM ACETATE) 667 Mg Tablet, 1334 MG PO TIDWMEALS for DIALYSIS PATIENTS, CAP 01/17/17 Lovastatin (LOVASTATIN) 10 Mg Tablet, 10 MG PO HS, TAB 07/03/16 Losartan Potassium (LOSARTAN POTASSIUM) 100 Mg Tablet, 100 MG PO DAILY, TAB 10/27/15 Amlodipine Besylate (AMLODIPINE BESYLATE) 10 Mg Tablet, 10 MG PO PRN DAILY PRN for HYPERTENSION, SEE COMMENTS, TAB 10/27/15 Ferrous Sulfate (FERROUS SULFATE) 325 Mg Tablet, 1 TAB PO DAILY, #30 TAB 3 Refills 10/27/15 Furosemide (LASIX) 40 Mg Tablet, 1 TAB PO DAILY, #90 TAB 1 Refill 10/27/15 Aspirin (ASPIR 81) 81 Mg Tablet.dr, 1 TAB PO DAILY, #30 TAB 5 Refills 10/27/15 Discontinued Scripts Doxycycline Hyclate (DOXYCYCLINE HYCLATE) 100 Mg Tablet, 100 MG PO BID for 7 Days, #14 TAB Prov:SATHYA ANTHONY MD 11/04/17 RADHA BHARDWAJ MD Nov 16, 2018 08:50
--- NOTE | 2018-11-16 08:54 | PDOC2 ---
CONSULT Date of Consult Date of Consult DATE: 11/16/18 TIME: 08:45 Reason for Consult Reason for Consult: right foot pain Referring Physician Referring Physician: Wing Identification/Chief Complaint Chief Complaint right foot pain Source Source: Chart review, Patient History of Present Illness Reason for Visit: 88 year old female complains of right foot pain both elevated and in dependency. She complains she cannot move her toes as well. she sees a advertising strategist in [place]. she is awaiting placement in [place]. Past Medical History Cardiovascular: CAD, HTN, Hyperlipidemia, Other Pulmonary: Pulmonary embolus CENTRAL NERVOUS SYSTEM: Other GI: No pertinent hx Heme/Onc: Anemia NOS Hepatobiliary: No pertinent hx Psych: No pertinent hx Rheumatologic: No pertinent hx Infectious disease: No pertinent hx Renal/: Chronic renal failure Endocrine: Diabetes Past Surgical History Past Surgical History: Other Family History Family History: Family History Unknown Social History No ALCOHOL: none Drugs: None Lives: with Family Current Problem List Problem List Problems Medical Problems: (1) AV graft malfunction Status: Acute Current Medications Current Medications Current Medications Fentanyl Citrate (Fentanyl 2ml Vial) 50 mcg 1X ONCE IV Last administered on at 03:35; Start 11/09/18 at 03:30; Stop 11/09/18 at 03:32; Status DC Fentanyl Citrate (Fentanyl 2ml Vial) 50 mcg PRN Q2HR PRN IV SEVERE PAIN; Start 11/09/18 at 05:45; Stop 11/10/18 at 05:44; Status DC Heparin Sodium/ Dextrose 500 ml @ 0 mls/hr CONT PRN IV SEE I/O RECORD Last administered on 11/09/18at 06:00; Start 11/09/18 at 05:45; Stop 11/09/18 at 12:40 ; Status DC Lorazepam (Ativan) 0.5 mg 1X ONCE IV Last administered on 11/09/18at 05:57; Start 11/09/18 at 06:00; Stop 11/09/18 at 06:01; Status DC Info (Anti-Coagulation Monitoring By Pharmacy) 1 each PRN DAILY PRN MC SEE COMMENTS Last administered on 11/09/18at 05:58; Start 11/09/18 at 05:45; Stop at 12:41; Status DC Iodixanol (Visipaque 320) 100 ml STK-MED ONCE .ROUTE ; Start 11/09/18 at 07:15; Stop 11/09/18 at 07:16; Status DC Lidocaine/Sodium Bicarbonate (Buffered Lidocaine 1%) 3 ml STK-MED ONCE .ROUTE ; Start 11/09/18 at 07:15; Stop 11/09/18 at 07:16; Status DC Heparin Sodium/ Sodium Chloride 1,000 ml @ As Directed STK-MED ONCE .ROUTE ; Start 11/09/18 at 07:15; Stop 11/09/18 at 07:16; Status DC Iodixanol (Visipaque 320) 100 ml STK-MED ONCE .ROUTE ; Start 11/09/18 at 07:44; Stop 11/09/18 at 07:45; Status DC Iodixanol (Visipaque 320) 50 ml STK-MED ONCE .ROUTE ; Start 11/09/18 at 07:44; Stop 11/09/18 at 07:45; Status DC Iodixanol (Visipaque 320) 100 ml STK-MED ONCE .ROUTE ; Start 11/09/18 at 07:47; Stop 11/09/18 at 07:48; Status DC Midazolam HCl (Versed) 2 mg STK-MED ONCE .ROUTE ; Start 11/09/18 at 07:48; Stop 11/09/18 at 07:49; Status DC Fentanyl Citrate (Fentanyl 2ml Vial) 100 mcg STK-MED ONCE .ROUTE ; Start at 07:48; Stop 11/09/18 at 07:49; Status DC Heparin Sodium (Porcine) (Heparin Sodium) 10,000 unit STK-MED ONCE .ROUTE ; Start 11/09/18 at 08:03; Stop 11/09/18 at 08:04; Status DC Diphenhydramine HCl (Benadryl) 50 mg STK-MED ONCE .ROUTE ; Start 11/09/18 at 08: 28; Stop 11/09/18 at 08:29; Status DC Hydromorphone HCl (Dilaudid) 2 mg 1X ONCE IV Last administered on 11/09/18at 10 :43; Start 11/09/18 at 08:30; Stop 11/09/18 at 08:31; Status DC Heparin Sodium/ Sodium Chloride 500 ml @ As Directed STK-MED ONCE .ROUTE ; Start 11/09/18 at 08:59; Stop 11/09/18 at 09:00; Status DC Iodixanol (Visipaque 320) 100 ml STK-MED ONCE .ROUTE ; Start 11/09/18 at 09:04; Stop 11/09/18 at 09:05; Status DC Heparin Sodium/ Sodium Chloride (HEPARIN for ARTERIAL LINE FLUSH) 1,000 unit 1X ONCE IART Last administered on 11/09/18 10:40; Start 11/09/18 at 09:15; Stop 11/09/18 at 09:16; Status DC Heparin Sodium/ Sodium Chloride (HEPARIN for ARTERIAL LINE FLUSH) 1,000 unit 1X ONCE IART Last administered on 11/09/18 10:40; Start 11/09/18 at 09:15; Stop 11/09/18 at 09:16; Status DC Lidocaine/Sodium Bicarbonate (Buffered Lidocaine 1%) 6 ml 1X ONCE IJ Last administered on 11/09/18 10:42; Start 11/09/18 at 09:15; Stop 11/09/18 at 09:16 ; Status DC Midazolam HCl (Versed) 2 mg 1X ONCE IV Last administered on 11/09/18 10:43; Start 11/09/18 at 09:15; Stop 11/09/18 at 09:16; Status DC Fentanyl Citrate (Fentanyl 2ml Vial) 100 mcg 1X ONCE IV Last administered on 10:44; Start 11/09/18 at 09:15; Stop 11/09/18 at 09:16; Status DC Iodixanol (Visipaque 320) 100 ml 1X ONCE IART Last administered on 11/09/18 10:44; Start 11/09/18 at 09:15; Stop 11/09/18 at 09:16; Status DC Heparin Sodium (Porcine) (Heparin Sodium) 7,500 unit 1X ONCE IV Last administered on 11/09/18 10:47; Start 11/09/18 at 09:15; Stop 11/09/18 at 09:16 ; Status DC Diphenhydramine HCl (Benadryl) 50 mg 1X ONCE IVP Last administered on 10:44; Start 11/09/18 at 09:15; Stop 11/09/18 at 09:16; Status DC Iodixanol (Visipaque 320) 50 ml 1X ONCE IART Last administered on 11/09/18at 10 :45; Start 11/09/18 at 09:15; Stop 11/09/18 at 09:16; Status DC Info (CONTRAST GIVEN -- Rx MONITORING) 1 each PRN DAILY PRN MC SEE COMMENTS; Start 11/09/18 at 09:15; Stop 11/11/18 at 09:14; Status DC Heparin Sodium/ Sodium Chloride (HEPARIN for ARTERIAL LINE FLUSH) 1,000 unit 1X ONCE IV Last administered on 11/09/18at 10:41; Start 11/09/18 at 09:30; Stop 11/09/18 at 09:31; Status DC Heparin Sodium/ Sodium Chloride (HEPARIN for ARTERIAL LINE FLUSH) 1,000 unit 1X ONCE IV Last administered on 11/09/18at 10:42; Start 11/09/18 at 09:30; Stop 11/09/18 at 09:31; Status DC Iodixanol (Visipaque 320) 100 ml STK-MED ONCE .ROUTE ; Start 11/09/18 at 09:41; Stop 11/09/18 at 09:42; Status DC Midazolam HCl (Versed) 2 mg STK-MED ONCE .ROUTE ; Start 11/09/18 at 09:50; Stop 11/09/18 at 09:51; Status DC Heparin Sodium/ Sodium Chloride 500 ml @ As Directed STK-MED ONCE .ROUTE ; Start 11/09/18 at 09:56; Stop 11/09/18 at 09:57; Status DC Iodixanol (Visipaque 320) 50 ml STK-MED ONCE .ROUTE ; Start 11/09/18 at 10:00; Stop 11/09/18 at 10:01; Status DC Clopidogrel Bisulfate (Plavix) 300 mg 1X ONCE PO Last administered on at 18:19; Start 11/09/18 at 12:15; Stop 11/09/18 at 12:16; Status DC Clopidogrel Bisulfate (Plavix) 75 mg 1X ONCE PO Last administered on at 19:53; Start 11/10/18 at 08:00; Stop 11/10/18 at 08:01; Status DC Albuterol Sulfate (Ventolin Neb Soln) 2.5 mg PRN Q6HRS PRN INH SHORTNESS OF BREATH; Start 11/09/18 at 14:30 Amlodipine Besylate (Norvasc) 10 mg PRN DAILY PRN PO HYPERTENSION, SEE COMMENTS ; Start 11/09/18 at 14:30; Stop 11/13/18 at 11:48; Status DC Aspirin (Ecotrin) 81 mg DAILY PO Last administered on 11/15/18 13:36; Start at 09:00 Cinacalcet (Sensipar) 30 mg DAILYWSUP PO Last administered on 11/15/18 17:25; Start 11/09/18 at 17:00 Clonidine HCl (Catapres Tts-2) 1 patch WEEKLY TD Last administered on 17:00; Start 11/10/18 at 09:00 Clonidine HCl (Catapres) 0.2 mg BID PO ; Start 11/09/18 at 21:00; Status UNV Clopidogrel Bisulfate (Plavix) 75 mg DAILY PO Last administered on 11/16/18 08 :30; Start 11/11/18 at 09:00 Fentanyl (Duragesic 25mcg/ Hr Patch) 1 patch Q72H TD ; Start 11/09/18 at 15:00 Ferrous Sulfate (Feosol) 325 mg DAILY PO Last administered on 11/16/18 08:30; Start 11/09/18 at 15:00 Furosemide (Lasix) 40 mg DAILY PO Last administered on 11/16/18 08:30; Start 11/09/18 at 15:00 Sevelamer Carbonate (Renvela) 1,600 mg TIDWMEALHC PO Last administered on 08:30; Start 11/09/18 at 17:00 Calcium Acetate (Phoslo) 1,334 mg TIDWMEALS PO Last administered on 11/16/18 08:30; Start 11/09/18 at 17:00 Losartan Potassium (Cozaar) 100 mg DAILY PO Last administered on 11/16/18 08: 30; Start 11/09/18 at 15:00 Atorvastatin Calcium (Lipitor) 5 mg QHS PO Last administered on 11/15/18 20:57 ; Start 11/09/18 at 21:00 Vitamin B Complex/ Vitamin C (Hyacinth-Brad) 1 tab DAILY PO Last administered on 08:30; Start 11/09/18 at 15:00 Sodium Chloride 1,000 ml @ 1,000 mls/hr Q1H PRN IV hypotension; Start 11/10/18 at 10:45; Stop 11/10/18 at 16:44; Status DC Sodium Chloride 1,000 ml @ 400 mls/hr Q2H30M PRN IV PATENCY; Start 11/10/18 at 10:45; Stop 11/10/18 at 22:44; Status DC Info (PHARMACY MONITORING -- do not chart) 1 each PRN DAILY PRN MC SEE COMMENTS ; Start 11/10/18 at 10:45; Stop 11/10/18 at 10:49; Status DC Info (PHARMACY MONITORING -- do not chart) 1 each PRN DAILY PRN MC SEE COMMENTS ; Start 11/10/18 at 10:45; Stop 11/15/18 at 14:38; Status DC Oxycodone/ Acetaminophen (Percocet 5/325) 1 tab PRN Q4HRS PRN PO PAIN SEVERE Last administered on 11/16/18at 08:40; Start 11/10/18 at 16:00 Multi-Ingred Cream/Lotion/Oil/ Oint (Hydrocerin Cream) 1 gasper BID TP Last administered on 11/16/18at 08:30; Start 11/11/18 at 14:00 Diclofenac Sodium (Voltaren) 1 gasper BID TP Last administered on 11/16/18at 08:32 ; Start 11/11/18 at 14:30 Sodium Chloride 1,000 ml @ 1,000 mls/hr Q1H PRN IV hypotension; Start 11/12/18 at 13:10; Stop 11/12/18 at 19:09; Status DC Albumin Human 200 ml @ 200 mls/hr 1X PRN PRN IV Hypotension; Start 11/12/18 at 13:15; Stop 11/12/18 at 19:14; Status DC Acetaminophen (Tylenol) 500 mg 1X PRN PRN PO MILD PAIN / TEMP; Start 11/12/18 at 13:15; Stop 11/13/18 at 13:14; Status DC Diphenhydramine HCl (Benadryl) 25 mg 1X PRN PRN IV ITCHING; Start 11/12/18 at 13:15; Stop 11/13/18 at 13:14; Status DC Diphenhydramine HCl (Benadryl) 25 mg 1X PRN PRN IV ITCHING; Start 11/12/18 at 13:15; Stop 11/13/18 at 13:14; Status DC Sodium Chloride 1,000 ml @ 400 mls/hr Q2H30M PRN IV PATENCY; Start 11/12/18 at 13:10; Stop 11/13/18 at 01:09; Status DC Info (PHARMACY MONITORING -- do not chart) 1 each PRN DAILY PRN MC SEE COMMENTS ; Start 11/12/18 at 13:15; Status UNV Amlodipine Besylate (Norvasc) 5 mg PRN DAILY PRN PO HYPERTENSION, SEE COMMENTS ; Start 11/13/18 at 12:00 Amino Acids/ Glycerin/ Electrolytes 1,000 ml @ 80 mls/hr [id number] IV ; Start at 12:00; Stop 11/14/18 at 13:07; Status DC Darbepoetin Filipe (Aranesp) 100 mcg WEEKLYHS SQ Last administered on 11/13/18at 20:50; Start 11/13/18 at 21:00 Magnesium Sulfate 50 ml @ 25 mls/hr PRN DAILY PRN IV for Mag < 1.7 on am labs; Start 11/13/18 at 12:00 Sodium Chloride 1,000 ml @ 1,000 mls/hr Q1H PRN IV hypotension; Start 11/15/18 at 08:42; Stop 11/15/18 at 14:41; Status DC Sodium Chloride 1,000 ml @ 400 mls/hr Q2H30M PRN IV PATENCY; Start 11/15/18 at 08:42; Stop 11/15/18 at 20:41; Status DC Info (PHARMACY MONITORING -- do not chart) 1 each PRN DAILY PRN MC SEE COMMENTS ; Start 11/15/18 at 08:45; Status UNV Info (PHARMACY MONITORING -- do not chart) 1 each PRN DAILY PRN MC SEE COMMENTS ; Start 11/15/18 at 08:45 Active Scripts Active Proair Hfa Inhaler (Albuterol Sulfate) 8.5 Gm Hfa.aer.ad 1 Puff INH PRN Q6HRS PRN 14 Days Reported FENTANYL 25mcg/hr (Fentanyl) 1 Each Patch.td72 1 Patch TD Q72H Clopidogrel (Clopidogrel Bisulfate) 75 Mg Tablet 1 Tab PO DAILY Catapres-Tts 2 (Clonidine) 1 Each Patch.tdwk 1 Each TD WEEKLY Clonidine Hcl 0.2 Mg Tablet 0.2 Mg PO BID Dialyvite Slater D Tablet (Multivitamin, Min Cmb#25/Fa/D3) 1 Each Tablet 1 Each PO DAILY Renvela (Sevelamer Carbonate) 800 Mg Tablet 2 Tab PO TIDWMEALHC Sensipar (Cinacalcet Hcl) 30 Mg Tablet 1 Tab PO DAILYWSUP Calcium Acetate 667 Mg Tablet 1,334 Mg PO TIDWMEALS Lovastatin 10 Mg Tablet 10 Mg PO HS Losartan Potassium 100 Mg Tablet 100 Mg PO DAILY Amlodipine Besylate 10 Mg Tablet 10 Mg PO PRN DAILY PRN Ferrous Sulfate 325 Mg Tablet 1 Tab PO DAILY Lasix (Furosemide) 40 Mg Tablet 1 Tab PO DAILY Aspir 81 (Aspirin) 81 Mg Tablet.dr 1 Tab PO DAILY Allergies Allergies: Coded Allergies: No Known Drug Allergies (Unverified , 07/14/17) ROS General: YES: Fatigue Eyes: No Blurry vision, No Decreased vision, No Double vision, No Dry eyes, No Excessive tearing, No Eye Pain, No Itchy Eyes, No Loss of vision, No Photophobia , No Scotomata, No Uses contacts, No Uses glasses, No Other HEENT: No: Heacaches, Visual Changes, Hearing change, Nasal congestion, Nasal discharge, Oral lesions, Sinus pain, Sore Throat, Epistaxis, Sneezing, Snoring, Tinnitus, Vertigo, Vocal changes, Other ALLERGY AND IMMUNOLOGY: No: Hives, Insect Bite Sensitivity, Itchy/Watery Eyes, Nasal Congestion, Post Nasal Drip, Seasonal Allergies, Other Hematological and Lymphatic: No: Bleeding Problems, Blood Clots, Blood Transfusions, Brusing, Night Sweats, Pallor, Swollen Lymph Nodes, Other ENDOCRINE: No: Breast Changes, Galactorrhea, Hair Pattern Changes, Hot Flashes , Malaise/lethargy, Mood Swings, Palpitations, Polydipsia/polyuria, Skin Changes , Temperature Intolerance, Unexpected Weight Changes, Other Breast: No New/Changing Breast Lumps, No Nipple changes, No Nipple discharge, No Other Respiratory: No: Cough, Hemoptysis, Orthopnea, Pleuritic Pain, Shortness of breath, SOB with excertion, Sputum Changes, Stridor, Tachypnea, Wheezing, Other Cardiovascular: No Chest Pain, No Palpitations, No Orthopnea, No Paroxysmal Noc. Dyspnea, No Edema, No Lt Headedness, No Other Gastrointestinal: No Nausea, No Vomiting, No Abdominal Pain, No Diarrhea, No Constipation, No Melena, No Hematochezia, No Other Genitourinary: No Dysuria, No Frequency, No Incontinence, No Hematuria, No Retention, No Discharge, No Urgency, No Pain, No Flank Pain, No Other, No , No , No , No , No , No , No Musculoskeletal: Yes Gait Disturbance, Yes Joint Pain, Yes Joint Stiffness, Yes Muscle Pain, Yes Muscular Weakness Neurological: Yes Gait Disturbance, Yes Numbness/Tingling, Yes Weakness Skin: Yes Dry Skin, Yes Hair Changes, Yes Mottling, Yes Nail Changes Physical Exam Physical Exam lower extremity: note ischemic changes with dry gangrene to distal 2nd and 4th digits to level of DIPJ right foot. No active drainage. no cellulitis. no calor no hair is present to feet. Nails are yellow brown discolored but well trimmed. DP and PT non palpable bilateral CFT delayed to digits. Sensation intact to light touch. Hyperesthesia to feet with light touch. Pain with range of motion and palpation. no gross pedal foot deformities General: Alert, mild distress Vitals VITALS Vital Signs Date Time Temp Pulse Resp B/P (MAP) Pulse Ox O2 Delivery O2 Flow Rate FiO2 11/16/18 08:40 Room Air 11/16/18 08:30 82 110/35 11/16/18 02:59 98.7 18 96 98.7 11/15/18 18:44 2.0 Labs Labs Laboratory Tests Test 11/14/18 11:27 11/14/18 16:34 11/14/18 20:39 11/15/18 06:53 Glucose (Fingerstick) 114 mg/dL (70-99) 109 mg/dL (70-99) 124 mg/dL (70-99) Magnesium Level 2.7 mg/dL (1.8-2.4) Test 11/15/18 06:55 11/15/18 07:19 11/15/18 11:43 11/15/18 16:32 Hemoglobin 9.9 g/dL (12.0-15.5) Glucose (Fingerstick) 92 mg/dL (70-99) 84 mg/dL (70-99) 176 mg/dL (70-99) Test 11/15/18 20:40 11/16/18 04:05 11/16/18 07:17 Glucose (Fingerstick) 113 mg/dL (70-99) 95 mg/dL (70-99) Sodium Level 137 mmol/L (136-145) Potassium Level 4.3 mmol/L (3.5-5.1) Chloride Level 98 mmol/L (98-107) Carbon Dioxide Level 30 mmol/L (21-32) Anion Gap 9 (6-14) Blood Urea Nitrogen 23 mg/dL (7-20) Creatinine 6.2 mg/dL (0.6-1.0) Estimated GFR (Cockcroft-Gault) 7.7 Glucose Level 87 mg/dL (70-99) Calcium Level 9.2 mg/dL (8.5-10.1) Phosphorus Level 2.5 mg/dL (2.6-4.7) Magnesium Level 2.5 mg/dL (1.8-2.4) Albumin 2.5 g/dL (3.4-5.0) Laboratory Tests Test 11/15/18 11:43 11/15/18 16:32 11/15/18 20:40 11/16/18 04:05 Glucose (Fingerstick) 84 mg/dL (70-99) 176 mg/dL (70-99) 113 mg/dL (70-99) Sodium Level 137 mmol/L (136-145) Potassium Level 4.3 mmol/L (3.5-5.1) Chloride Level 98 mmol/L (98-107) Carbon Dioxide Level 30 mmol/L (21-32) Anion Gap 9 (6-14) Blood Urea Nitrogen 23 mg/dL (7-20) Creatinine 6.2 mg/dL (0.6-1.0) Estimated GFR (Cockcroft-Gault) 7.7 Glucose Level 87 mg/dL (70-99) Calcium Level 9.2 mg/dL (8.5-10.1) Phosphorus Level 2.5 mg/dL (2.6-4.7) Magnesium Level 2.5 mg/dL (1.8-2.4) Albumin 2.5 g/dL (3.4-5.0) Test 11/16/18 07:17 Glucose (Fingerstick) 95 mg/dL (70-99) Images Images Xray right foot weightbearing: no fracture or dislocation. Soft tissue calcifications. APPROVED REPORT Patient StatusIN-PATIENT Associate Spa Director: KEVEN LEYVA RTR Procedure(s) performed: Aortogram with bilateral lower extremity runoff Moderate sedation: 41 mins CSHA:6 INDICATION FOR PROCEDURE The indication(s) include : Peripheral vascular disease with claudication. PROCEDURE NARRATIVE After explaining the risks, benefits and alternative options, informed consent was obtained from patient. Patient was brought to the cardiac [facility] and her left groin was prepped and draped in the usual fashion. 20 mL of 2% lidocaine was infiltrated into the skin and subcutaneous tissues for local anesthesia. Arterial access was obtained the left common femoral artery and a 6 Guyanese sheath was inserted. Selective coronary angiography was performed that will be reported separately. 5 [place]yanese pigtail catheter was then positioned in the distal descending aorta and aortogram with bilateral lower extremity runoff was performed. Patient tolerated the procedure well. Hemostasis was achieved using mynx closure device per there were no immediate complications. FINDINGS 1. No significant stenosis involving the distal descending aorta 2. 60% stenosis involving the distal segment of left common iliac artery. No significant stenosis involving the right common iliac artery. 3. The right external iliac artery showed 80% stenosis in the proximal segment. The left external iliac artery did not show any significant stenosis. 4. No significant stenosis involving bilateral common femoral arteries. 5. The right superficial femoral artery showed long 90-95% heavily calcified stenosis involving the proximal, mid and mid to distal segments. The left superficial femoral artery showed long chronic total occlusion involving the proximal and mid segments with distal reconstitution from collaterals. 6. No significant stenosis involving bilateral popliteal arteries. 7. There appears to be at least 2 vessel runoff proximally both lower extremities (anterior tibial and peroneal arteries). The mid to distal segments were not well visualized. Conclusion Severe bilateral lower extremity peripheral vascular disease Recommendations CTA to better visualize below the knee vessels followed by vascular surgery team consultation for possible surgical revascularization. 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 -Patient with uncontrolled rest pain to right foot and stable dry gangrene -Patient has been evaluated by both cardiology and vascular on previous admission -Recommend consult to vascular at this time for further evaluation of peripheral arterial disease and consider intervention versus definitive higher level amputation if she is not a candidate for revascularization -Recommend keep interdigital spaces dry -Daily monitor for signs of wet gangrene or infection, redness, swelling, drainage. -Will sign off. EDWIGE CARROLL DPM Nov 16, 2018 08:54
[2018-11-16] MEDS: ASPIRIN ENTERIC COATED 81 MG TABLET.DR. PO SCH (09:00)
--- NOTE | 2018-11-16 09:57 | PDOC ---
PROGRESS NOTES Subjective Subjective She still admits right foot pain. Objective Objective Vital Signs Date Time Temp Pulse Resp B/P (MAP) Pulse Ox O2 Delivery O2 Flow Rate FiO2 11/16/18 08:40 Room Air 11/16/18 08:30 82 110/35 11/16/18 07:00 98.1 18 98 98.1 11/15/18 18:44 2.0 Intake and Output 11/16/18 06:59 Intake Total 260 ml Output Total 0 ml Balance 260 ml Intake Oral 260 ml Output Urine Total 0 ml # Voids 2 # Bowel Movements 1 Physical Exam Physical Exam She is alert,supine in bed and no change with her neurological status and she continues with coldness of her right foot toes. Assessment Assessment Problems Medical Problems: (1) AV graft malfunction Status: Acute Plan Plan of Care To SNF when medically stable. Comment Review of Relevant I have reviewed the following items vicente (where applicable) has been applied. Labs Laboratory Tests Test 11/14/18 11:27 11/14/18 16:34 11/14/18 20:39 11/15/18 06:53 Glucose (Fingerstick) 114 mg/dL (70-99) 109 mg/dL (70-99) 124 mg/dL (70-99) Magnesium Level 2.7 mg/dL (1.8-2.4) Test 11/15/18 06:55 11/15/18 07:19 11/15/18 11:43 11/15/18 16:32 Hemoglobin 9.9 g/dL (12.0-15.5) Glucose (Fingerstick) 92 mg/dL (70-99) 84 mg/dL (70-99) 176 mg/dL (70-99) Test 11/15/18 20:40 11/16/18 04:05 11/16/18 07:17 Glucose (Fingerstick) 113 mg/dL (70-99) 95 mg/dL (70-99) Sodium Level 137 mmol/L (136-145) Potassium Level 4.3 mmol/L (3.5-5.1) Chloride Level 98 mmol/L (98-107) Carbon Dioxide Level 30 mmol/L (21-32) Anion Gap 9 (6-14) Blood Urea Nitrogen 23 mg/dL (7-20) Creatinine 6.2 mg/dL (0.6-1.0) Estimated GFR (Cockcroft-Gault) 7.7 Glucose Level 87 mg/dL (70-99) Calcium Level 9.2 mg/dL (8.5-10.1) Phosphorus Level 2.5 mg/dL (2.6-4.7) Magnesium Level 2.5 mg/dL (1.8-2.4) Albumin 2.5 g/dL (3.4-5.0) Laboratory Tests Test 11/15/18 11:43 11/15/18 16:32 11/15/18 20:40 11/16/18 04:05 Glucose (Fingerstick) 84 mg/dL (70-99) 176 mg/dL (70-99) 113 mg/dL (70-99) Sodium Level 137 mmol/L (136-145) Potassium Level 4.3 mmol/L (3.5-5.1) Chloride Level 98 mmol/L (98-107) Carbon Dioxide Level 30 mmol/L (21-32) Anion Gap 9 (6-14) Blood Urea Nitrogen 23 mg/dL (7-20) Creatinine 6.2 mg/dL (0.6-1.0) Estimated GFR (Cockcroft-Gault) 7.7 Glucose Level 87 mg/dL (70-99) Calcium Level 9.2 mg/dL (8.5-10.1) Phosphorus Level 2.5 mg/dL (2.6-4.7) Magnesium Level 2.5 mg/dL (1.8-2.4) Albumin 2.5 g/dL (3.4-5.0) Test 11/16/18 07:17 Glucose (Fingerstick) 95 mg/dL (70-99) Medications Current Medications Fentanyl Citrate (Fentanyl 2ml Vial) 50 mcg 1X ONCE IV Last administered on at 03:35; Start 11/09/18 at 03:30; Stop 11/09/18 at 03:32; Status DC Fentanyl Citrate (Fentanyl 2ml Vial) 50 mcg PRN Q2HR PRN IV SEVERE PAIN; Start 11/09/18 at 05:45; Stop 11/10/18 at 05:44; Status DC Heparin Sodium/ Dextrose 500 ml @ 0 mls/hr CONT PRN IV SEE I/O RECORD Last administered on 11/09/18at 06:00; Start 11/09/18 at 05:45; Stop 11/09/18 at 12:40 ; Status DC Lorazepam (Ativan) 0.5 mg 1X ONCE IV Last administered on 11/09/18at 05:57; Start 11/09/18 at 06:00; Stop 11/09/18 at 06:01; Status DC Info (Anti-Coagulation Monitoring By Pharmacy) 1 each PRN DAILY PRN MC SEE COMMENTS Last administered on 11/09/18at 05:58; Start 11/09/18 at 05:45; Stop at 12:41; Status DC Iodixanol (Visipaque 320) 100 ml STK-MED ONCE .ROUTE ; Start 11/09/18 at 07:15; Stop 11/09/18 at 07:16; Status DC Lidocaine/Sodium Bicarbonate (Buffered Lidocaine 1%) 3 ml STK-MED ONCE .ROUTE ; Start 11/09/18 at 07:15; Stop 11/09/18 at 07:16; Status DC Heparin Sodium/ Sodium Chloride 1,000 ml @ As Directed STK-MED ONCE .ROUTE ; Start 11/09/18 at 07:15; Stop 11/09/18 at 07:16; Status DC Iodixanol (Visipaque 320) 100 ml STK-MED ONCE .ROUTE ; Start 11/09/18 at 07:44; Stop 11/09/18 at 07:45; Status DC Iodixanol (Visipaque 320) 50 ml STK-MED ONCE .ROUTE ; Start 11/09/18 at 07:44; Stop 11/09/18 at 07:45; Status DC Iodixanol (Visipaque 320) 100 ml STK-MED ONCE .ROUTE ; Start 11/09/18 at 07:47; Stop 11/09/18 at 07:48; Status DC Midazolam HCl (Versed) 2 mg STK-MED ONCE .ROUTE ; Start 11/09/18 at 07:48; Stop 11/09/18 at 07:49; Status DC Fentanyl Citrate (Fentanyl 2ml Vial) 100 mcg STK-MED ONCE .ROUTE ; Start at 07:48; Stop 11/09/18 at 07:49; Status DC Heparin Sodium (Porcine) (Heparin Sodium) 10,000 unit STK-MED ONCE .ROUTE ; Start 11/09/18 at 08:03; Stop 11/09/18 at 08:04; Status DC Diphenhydramine HCl (Benadryl) 50 mg STK-MED ONCE .ROUTE ; Start 11/09/18 at 08: 28; Stop 11/09/18 at 08:29; Status DC Hydromorphone HCl (Dilaudid) 2 mg 1X ONCE IV Last administered on 11/09/18at 10 :43; Start 11/09/18 at 08:30; Stop 11/09/18 at 08:31; Status DC Heparin Sodium/ Sodium Chloride 500 ml @ As Directed STK-MED ONCE .ROUTE ; Start 11/09/18 at 08:59; Stop 11/09/18 at 09:00; Status DC Iodixanol (Visipaque 320) 100 ml STK-MED ONCE .ROUTE ; Start 11/09/18 at 09:04; Stop 11/09/18 at 09:05; Status DC Heparin Sodium/ Sodium Chloride (HEPARIN for ARTERIAL LINE FLUSH) 1,000 unit 1X ONCE IART Last administered on 11/09/18 10:40; Start 11/09/18 at 09:15; Stop 11/09/18 at 09:16; Status DC Heparin Sodium/ Sodium Chloride (HEPARIN for ARTERIAL LINE FLUSH) 1,000 unit 1X ONCE IART Last administered on 11/09/18 10:40; Start 11/09/18 at 09:15; Stop 11/09/18 at 09:16; Status DC Lidocaine/Sodium Bicarbonate (Buffered Lidocaine 1%) 6 ml 1X ONCE IJ Last administered on 11/09/18 10:42; Start 11/09/18 at 09:15; Stop 11/09/18 at 09:16 ; Status DC Midazolam HCl (Versed) 2 mg 1X ONCE IV Last administered on 11/09/18 10:43; Start 11/09/18 at 09:15; Stop 11/09/18 at 09:16; Status DC Fentanyl Citrate (Fentanyl 2ml Vial) 100 mcg 1X ONCE IV Last administered on 10:44; Start 11/09/18 at 09:15; Stop 11/09/18 at 09:16; Status DC Iodixanol (Visipaque 320) 100 ml 1X ONCE IART Last administered on 11/09/18 10:44; Start 11/09/18 at 09:15; Stop 11/09/18 at 09:16; Status DC Heparin Sodium (Porcine) (Heparin Sodium) 7,500 unit 1X ONCE IV Last administered on 11/09/18 10:47; Start 11/09/18 at 09:15; Stop 11/09/18 at 09:16 ; Status DC Diphenhydramine HCl (Benadryl) 50 mg 1X ONCE IVP Last administered on 10:44; Start 11/09/18 at 09:15; Stop 11/09/18 at 09:16; Status DC Iodixanol (Visipaque 320) 50 ml 1X ONCE IART Last administered on 11/09/18 10 :45; Start 11/09/18 at 09:15; Stop 11/09/18 at 09:16; Status DC Info (CONTRAST GIVEN -- Rx MONITORING) 1 each PRN DAILY PRN MC SEE COMMENTS; Start 11/09/18 at 09:15; Stop 11/11/18 at 09:14; Status DC Heparin Sodium/ Sodium Chloride (HEPARIN for ARTERIAL LINE FLUSH) 1,000 unit 1X ONCE IV Last administered on 11/09/18at 10:41; Start 11/09/18 at 09:30; Stop 11/09/18 at 09:31; Status DC Heparin Sodium/ Sodium Chloride (HEPARIN for ARTERIAL LINE FLUSH) 1,000 unit 1X ONCE IV Last administered on 11/09/18 10:42; Start 11/09/18 at 09:30; Stop 11/09/18 at 09:31; Status DC Iodixanol (Visipaque 320) 100 ml STK-MED ONCE .ROUTE ; Start 11/09/18 at 09:41; Stop 11/09/18 at 09:42; Status DC Midazolam HCl (Versed) 2 mg STK-MED ONCE .ROUTE ; Start 11/09/18 at 09:50; Stop 11/09/18 at 09:51; Status DC Heparin Sodium/ Sodium Chloride 500 ml @ As Directed STK-MED ONCE .ROUTE ; Start 11/09/18 at 09:56; Stop 11/09/18 at 09:57; Status DC Iodixanol (Visipaque 320) 50 ml STK-MED ONCE .ROUTE ; Start 11/09/18 at 10:00; Stop 11/09/18 at 10:01; Status DC Clopidogrel Bisulfate (Plavix) 300 mg 1X ONCE PO Last administered on 18:19; Start 11/09/18 at 12:15; Stop 11/09/18 at 12:16; Status DC Clopidogrel Bisulfate (Plavix) 75 mg 1X ONCE PO Last administered on at 19:53; Start 11/10/18 at 08:00; Stop 11/10/18 at 08:01; Status DC Albuterol Sulfate (Ventolin Neb Soln) 2.5 mg PRN Q6HRS PRN INH SHORTNESS OF BREATH; Start 11/09/18 at 14:30 Amlodipine Besylate (Norvasc) 10 mg PRN DAILY PRN PO HYPERTENSION, SEE COMMENTS ; Start 11/09/18 at 14:30; Stop 11/13/18 at 11:48; Status DC Aspirin (Ecotrin) 81 mg DAILY PO Last administered on 11/16/18 09:00; Start at 09:00 Cinacalcet (Sensipar) 30 mg DAILYWSUP PO Last administered on 11/15/18 17:25; Start 11/09/18 at 17:00 Clonidine HCl (Catapres Tts-2) 1 patch WEEKLY TD Last administered on at 17:00; Start 11/10/18 at 09:00 Clonidine HCl (Catapres) 0.2 mg BID PO ; Start 11/09/18 at 21:00; Status UNV Clopidogrel Bisulfate (Plavix) 75 mg DAILY PO Last administered on 11/16/18 08 :30; Start 11/11/18 at 09:00 Fentanyl (Duragesic 25mcg/ Hr Patch) 1 patch Q72H TD ; Start 11/09/18 at 15:00 Ferrous Sulfate (Feosol) 325 mg DAILY PO Last administered on 11/16/18 08:30; Start 11/09/18 at 15:00 Furosemide (Lasix) 40 mg DAILY PO Last administered on 11/16/18 08:30; Start 11/09/18 at 15:00 Sevelamer Carbonate (Renvela) 1,600 mg TIDWMEALHC PO Last administered on 08:30; Start 11/09/18 at 17:00 Calcium Acetate (Phoslo) 1,334 mg TIDWMEALS PO Last administered on 11/16/18 08:30; Start 11/09/18 at 17:00 Losartan Potassium (Cozaar) 100 mg DAILY PO Last administered on 11/16/18 08: 30; Start 11/09/18 at 15:00 Atorvastatin Calcium (Lipitor) 5 mg QHS PO Last administered on 11/15/18 20:57 ; Start 11/09/18 at 21:00 Vitamin B Complex/ Vitamin C (Hyacinth-Brad) 1 tab DAILY PO Last administered on 08:30; Start 11/09/18 at 15:00 Sodium Chloride 1,000 ml @ 1,000 mls/hr Q1H PRN IV hypotension; Start 11/10/18 at 10:45; Stop 11/10/18 at 16:44; Status DC Sodium Chloride 1,000 ml @ 400 mls/hr Q2H30M PRN IV PATENCY; Start 11/10/18 at 10:45; Stop 11/10/18 at 22:44; Status DC Info (PHARMACY MONITORING -- do not chart) 1 each PRN DAILY PRN MC SEE COMMENTS ; Start 11/10/18 at 10:45; Stop 11/10/18 at 10:49; Status DC Info (PHARMACY MONITORING -- do not chart) 1 each PRN DAILY PRN MC SEE COMMENTS ; Start 11/10/18 at 10:45; Stop 11/15/18 at 14:38; Status DC Oxycodone/ Acetaminophen (Percocet 5/325) 1 tab PRN Q4HRS PRN PO PAIN SEVERE Last administered on 11/16/18at 08:40; Start 11/10/18 at 16:00 Multi-Ingred Cream/Lotion/Oil/ Oint (Hydrocerin Cream) 1 gasper BID TP Last administered on 11/16/18 08:30; Start 11/11/18 at 14:00 Diclofenac Sodium (Voltaren) 1 gasper BID TP Last administered on 11/16/18 08:32 ; Start 11/11/18 at 14:30 Sodium Chloride 1,000 ml @ 1,000 mls/hr Q1H PRN IV hypotension; Start 11/12/18 at 13:10; Stop 11/12/18 at 19:09; Status DC Albumin Human 200 ml @ 200 mls/hr 1X PRN PRN IV Hypotension; Start 11/12/18 at 13:15; Stop 11/12/18 at 19:14; Status DC Acetaminophen (Tylenol) 500 mg 1X PRN PRN PO MILD PAIN / TEMP; Start 11/12/18 at 13:15; Stop 11/13/18 at 13:14; Status DC Diphenhydramine HCl (Benadryl) 25 mg 1X PRN PRN IV ITCHING; Start 11/12/18 at 13:15; Stop 11/13/18 at 13:14; Status DC Diphenhydramine HCl (Benadryl) 25 mg 1X PRN PRN IV ITCHING; Start 11/12/18 at 13:15; Stop 11/13/18 at 13:14; Status DC Sodium Chloride 1,000 ml @ 400 mls/hr Q2H30M PRN IV PATENCY; Start 11/12/18 at 13:10; Stop 11/13/18 at 01:09; Status DC Info (PHARMACY MONITORING -- do not chart) 1 each PRN DAILY PRN MC SEE COMMENTS ; Start 11/12/18 at 13:15; Status UNV Amlodipine Besylate (Norvasc) 5 mg PRN DAILY PRN PO HYPERTENSION, SEE COMMENTS ; Start 11/13/18 at 12:00 Amino Acids/ Glycerin/ Electrolytes 1,000 ml @ 80 mls/hr [id number] IV ; Start at 12:00; Stop 11/14/18 at 13:07; Status DC Darbepoetin Filipe (Aranesp) 100 mcg WEEKLYHS SQ Last administered on 11/13/18at 20:50; Start 11/13/18 at 21:00 Magnesium Sulfate 50 ml @ 25 mls/hr PRN DAILY PRN IV for Mag < 1.7 on am labs; Start 11/13/18 at 12:00 Sodium Chloride 1,000 ml @ 1,000 mls/hr Q1H PRN IV hypotension; Start 11/15/18 at 08:42; Stop 11/15/18 at 14:41; Status DC Sodium Chloride 1,000 ml @ 400 mls/hr Q2H30M PRN IV PATENCY; Start 11/15/18 at 08:42; Stop 11/15/18 at 20:41; Status DC Info (PHARMACY MONITORING -- do not chart) 1 each PRN DAILY PRN MC SEE COMMENTS ; Start 11/15/18 at 08:45; Status UNV Info (PHARMACY MONITORING -- do not chart) 1 each PRN DAILY PRN MC SEE COMMENTS ; Start 11/15/18 at 08:45 Active Scripts Active Proair Hfa Inhaler (Albuterol Sulfate) 8.5 Gm Hfa.aer.ad 1 Puff INH PRN Q6HRS PRN 14 Days Reported FENTANYL 25mcg/hr (Fentanyl) 1 Each Patch.td72 1 Patch TD Q72H Clopidogrel (Clopidogrel Bisulfate) 75 Mg Tablet 1 Tab PO DAILY Catapres-Tts 2 (Clonidine) 1 Each Patch.tdwk 1 Each TD WEEKLY Clonidine Hcl 0.2 Mg Tablet 0.2 Mg PO BID Dialyvite [place] D Tablet (Multivitamin, Min Cmb#25/Fa/D3) 1 Each Tablet 1 Each PO DAILY Renvela (Sevelamer Carbonate) 800 Mg Tablet 2 Tab PO TIDWMEALHC Sensipar (Cinacalcet Hcl) 30 Mg Tablet 1 Tab PO DAILYWSUP Calcium Acetate 667 Mg Tablet 1,334 Mg PO TIDWMEALS Lovastatin 10 Mg Tablet 10 Mg PO HS Losartan Potassium 100 Mg Tablet 100 Mg PO DAILY Amlodipine Besylate 10 Mg Tablet 10 Mg PO PRN DAILY PRN Ferrous Sulfate 325 Mg Tablet 1 Tab PO DAILY Lasix (Furosemide) 40 Mg Tablet 1 Tab PO DAILY Aspir 81 (Aspirin) 81 Mg Tablet. 1 Tab PO DAILY Vitals/I & O Vital Sign - Last 24 Hours 11/15/18 11/15/18 11/15/18 11/15/18 11:54 13:37 13:39 15:00 Temp 98.4 97.9 98.4 97.9 Pulse 75 84 84 80 Resp 17 17 B/P (MAP) 133/64 (87) 116/46 116/46 (69) 140/49 (79) Pulse Ox 92 95 O2 Delivery Room Air Room Air Room Air 11/15/18 11/15/18 11/15/18 11/15/18 17:24 18:44 19:00 20:00 Temp 98.7 98.7 Pulse 87 Resp 18 B/P (MAP) 114/42 (66) Pulse Ox 95 100 O2 Delivery Room Air Room Air Room Air Room Air O2 Flow Rate 2.0 11/15/18 11/16/18 11/16/18 11/16/18 22:50 02:59 07:00 08:30 Temp 99.4 98.7 98.1 99.4 98.7 98.1 Pulse 84 82 77 82 Resp 18 18 18 B/P (MAP) 116/41 (66) 110/35 (60) 119/48 (71) 110/35 Pulse Ox 94 96 98 O2 Delivery Room Air Room Air Room Air 11/16/18 08:40 O2 Delivery Room Air Intake and Output 11/15/18 11/15/18 11/16/18 14:59 22:59 06:59 Intake Total 260 ml 0 ml Output Total 0 ml Balance 260 ml 0 ml CASH WRIGHT MD Nov 16, 2018 09:57
--- NOTE | 2018-11-16 11:42 | NUR ---
[facility]ATA following pt. Insurance has approved SNU. [facility] phoned and faxed orders to [facility]. Pt will transport via central transport at 1130. [facility] phoned and left a voice mail to pt's granddaughter regarding plan. LATA also notified Niles Rollins regarding plan. Pt agreeable with plan. Packet on chart. RN notified.
--- NOTE | 2018-11-16 11:43 | PDOC3 ---
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 Final Diagnosis Problems Medical Problems: (1) AV graft malfunction Status: Acute Brief Hospital Course Allergies Allergies Coded Allergies Type Severity Reaction Last Updated Verified No Known Drug Allergies 07/14/17 No Vital Signs Vital Signs Date Time Temp Pulse Resp B/P (MAP) Pulse Ox O2 Delivery O2 Flow Rate FiO2 11/16/18 10:16 Room Air 11/16/18 08:30 82 110/35 11/16/18 07:00 98.1 18 98 98.1 11/15/18 18:44 2.0 Lab Results Laboratory Tests Test 11/14/18 16:34 11/14/18 20:39 11/15/18 06:53 11/15/18 06:55 Glucose (Fingerstick) 109 mg/dL (70-99) 124 mg/dL (70-99) Magnesium Level 2.7 mg/dL (1.8-2.4) Hemoglobin 9.9 g/dL (12.0-15.5) Test 11/15/18 07:19 11/15/18 11:43 11/15/18 16:32 11/15/18 20:40 Glucose (Fingerstick) 92 mg/dL (70-99) 84 mg/dL (70-99) 176 mg/dL (70-99) 113 mg/dL (70-99) Test 11/16/18 04:05 11/16/18 07:17 11/16/18 10:15 Sodium Level 137 mmol/L (136-145) Potassium Level 4.3 mmol/L (3.5-5.1) Chloride Level 98 mmol/L (98-107) Carbon Dioxide Level 30 mmol/L (21-32) Anion Gap 9 (6-14) Blood Urea Nitrogen 23 mg/dL (7-20) Creatinine 6.2 mg/dL (0.6-1.0) Estimated GFR (Cockcroft-Gault) 7.7 Glucose Level 87 mg/dL (70-99) Calcium Level 9.2 mg/dL (8.5-10.1) Phosphorus Level 2.5 mg/dL (2.6-4.7) Magnesium Level 2.5 mg/dL (1.8-2.4) Albumin 2.5 g/dL (3.4-5.0) Glucose (Fingerstick) 95 mg/dL (70-99) 96 mg/dL (70-99) Laboratory Tests Test 11/15/18 11:43 11/15/18 16:32 11/15/18 20:40 11/16/18 04:05 Glucose (Fingerstick) 84 mg/dL (70-99) 176 mg/dL (70-99) 113 mg/dL (70-99) Sodium Level 137 mmol/L (136-145) Potassium Level 4.3 mmol/L (3.5-5.1) Chloride Level 98 mmol/L (98-107) Carbon Dioxide Level 30 mmol/L (21-32) Anion Gap 9 (6-14) Blood Urea Nitrogen 23 mg/dL (7-20) Creatinine 6.2 mg/dL (0.6-1.0) Estimated GFR (Cockcroft-Gault) 7.7 Glucose Level 87 mg/dL (70-99) Calcium Level 9.2 mg/dL (8.5-10.1) Phosphorus Level 2.5 mg/dL (2.6-4.7) Magnesium Level 2.5 mg/dL (1.8-2.4) Albumin 2.5 g/dL (3.4-5.0) Test 11/16/18 07:17 11/16/18 10:15 Glucose (Fingerstick) 95 mg/dL (70-99) 96 mg/dL (70-99) Brief Hospital Course Ms. Mckenna is a 88 old female who is a bad vasculopath. Essentially she was admitted because of AV fistula not working. IR had to go in and do some stenting. On the way, he had some right iliac groin stenosis that needed to be stented. Also had subclavian left artery stenosis needs to be stented. Vascular surgery also consulted she has gangrenous right toes, and arterial study showed blockages. In the past apparently they have been been recommending hospice or palliative but I gather they are not ready because we're still active medical treatment treatment full code. Otherwise conservative treatment as patient is a poor candidate for surgery Full code Consults Vasc surgery, IR, renal Procedures dialysis per renal, IR stenting of the left subclavian artery and right iliac artery Meds on chart including fentanyl patch 25 every 72 hours FULL CODE Discharge Information Condition at Discharge: Improved, Stable Disposition/Orders: Other (snu) Scheduled Aspirin (Aspir 81) 81 Mg Tablet.dr, 1 TAB PO DAILY, #30 Ref 5 (Reported) Entered as Reported by: JASON TOM on 10/27/15 0117 Last Action: Continued on 11/09/181423 by HERRERA RODRIGUEZ Calcium Acetate (Calcium Acetate) 667 Mg Tablet, 1,334 MG PO TIDWMEALS for DIALYSIS PATIENTS, (Reported) Entered as Reported by: CALIN MCALLISTER on 01/17/17 111 Last Action: Converted on 11/09/181423 by HERRERA RODRIGUEZ Cinacalcet Hcl (Sensipar) 30 Mg Tablet, 1 TAB PO DAILYWSUP, #90 Ref 3 (Reported) Entered as Reported by: CALIN MCALLISTER on 01/17/17 111 Last Action: Continued on 11/09/181423 by HERRERA RODRIGUEZ Clonidine (Catapres-Tts 2) 1 Each Patch.tdwk, 1 EACH TD WEEKLY, (Reported) Entered as Reported by: LAWANDA GAMEZ on 11/03/172016 Last Action: Continued on 11/09/181423 by HERRERA RODRIGUEZ Clonidine Hcl (Clonidine Hcl) 0.2 Mg Tablet, 0.2 MG PO BID, (Reported) Entered as Reported by: LAWADNA GAMEZ on 11/02/17 1802 Last Action: Continued on 11/09/181423 by HERRERA RODRIGUEZ Clopidogrel Bisulfate (Clopidogrel) 75 Mg Tablet, 1 TAB PO DAILY for PVD, #90 Ref 1 (Reported) Entered as Reported by: MATEUSZ ORTIZ on 10/27/18 1730 Last Action: Continued on 11/09/181423 by HERRERA RODRIGUEZ Fentanyl (FENTANYL 25mcg/hr) 1 Each Patch.td72, 1 PATCH TD Q72H for PAIN, #5 Ref 0 (Reported) Entered as Reported by: Raz Huizar on 11/02/18 1711 Last Action: Continued on 11/09/181423 by HERRERA RODRIGUEZ Ferrous Sulfate (Ferrous Sulfate) 325 Mg Tablet, 1 TAB PO DAILY, #30 Ref 3 ( Reported) Entered as Reported by: JASON TOM on 10/27/15 0120 Last Action: Continued on 11/09/181423 by HERRERA RODRIGUEZ Furosemide (Lasix) 40 Mg Tablet, 1 TAB PO DAILY, #90 Ref 1 (Reported) Entered as Reported by: JASON TOM on 10/27/15 0118 Last Action: Continued on 11/09/181423 by HERRERA RODRIGUEZ Losartan Potassium (Losartan Potassium) 100 Mg Tablet, 100 MG PO DAILY, ( Reported) Entered as Reported by: LINH PADGETT on 10/27/15 0408 Last Action: Converted on 11/09/181423 by HERRERA RODRIGUEZ Lovastatin (Lovastatin) 10 Mg Tablet, 10 MG PO HS, (Reported) Entered as Reported by: Rachael Pang on 07/03/16 0805 Last Action: Converted on 11/09/181423 by HERRERA RODRIGUEZ Multivitamin, Min Cmb#25/Fa/D3 (Dialyvite [place] D Tablet) 1 Each Tablet, 1 EACH PO DAILY, (Reported) Entered as Reported by: JESSICA CABRAL on 01/19/17 173 Last Action: Converted on 11/09/181423 by HERRERA RODRIGUEZ Sevelamer Carbonate (Renvela) 800 Mg Tablet, 2 TAB PO TIDWMEALHC, #540 Ref 3 ( Reported) Entered as Reported by: JESSICA CABRAL on 01/19/17 173 Last Action: Continued on 11/09/181423 by HERRERA RODRIGUEZ Scheduled PRN Albuterol Sulfate (Proair Hfa Inhaler) 8.5 Gm Hfa.aer.ad, 1 PUFF INH PRN Q6HRS PRN for SHORTNESS OF BREATH for 14 Days, Ref 0 Prescribed by: RADHA BHARDWAJ on 08/15/18 1010 Last Action: Continued on 11/09/181423 by HERRERA RODRIUGEZ Amlodipine Besylate (Amlodipine Besylate) 10 Mg Tablet, 10 MG PO PRN DAILY PRN for HYPERTENSION, SEE COMMENTS, (Reported) Entered as Reported by: JASON TOM on 10/27/15 012 Last Action: Continued on 11/09/181423 by HERRERA RODRIGUEZ Discontinued Medications Doxycycline Hyclate (Doxycycline Hyclate) 100 Mg Tablet, 100 MG PO BID for 7 Days, #14 Prescribed by: SATHYA ANTHONY MD on 11/04/17 1144 Last Action: HELD on 11/09/18 1424 by RADHA MADRID MD Nov 16, 2018 11:43
--- NOTE | 2018-11-16 11:49 | PDOC ---
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 The patient has pain to her right foot, mainly to the plantar surface that comes and goes, worse with movement. She had an angiogram on 10/26/18 showing the following findings: distal aorta with significant calcification, no flow limiting disease right common iliac with significant calcification and moderate atherosclerotic disease right external iliac artery with a focal, high grade stenosis over 1 to 2 cm > 90% Right PFA with a focal high grade stenosis 90% right SFA occluded The patient has several other comorbidities, we have previously discussed with the patient and family members that she would require a major operation for revascularization to her right leg. She is not a good surgical candidate and her risk is too high. Objective Objective Vital Signs Date Time Temp Pulse Resp B/P (MAP) Pulse Ox O2 Delivery O2 Flow Rate FiO2 11/16/18 10:16 Room Air 11/16/18 08:30 82 110/35 11/16/18 07:00 98.1 18 98 98.1 11/15/18 18:44 2.0 Intake and Output 11/16/18 06:59 Intake Total 260 ml Output Total 0 ml Balance 260 ml Intake Oral 260 ml Output Urine Total 0 ml # Voids 2 # Bowel Movements 1 Physical Exam Physical Exam VSS, afebrile Alert, oriented, in no apparent distress Speech clear and fluent. Cooperative Right arm AV shunt with faint thrill proximally Right leg with dry gangrene over 2-4 toes, without surrounding erythema or drainage. No odor. 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 Cannot appreciate palpable pulses. 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 She had an angiogram on 10/26/18 at which point further revascularization was discussed and the patient was deemed too high risk for surgical revascularization. We again discussed this with the patient today and recommend monitoring her right leg/toes and conservative management with keeping the patient comfortable. We did discuss with her the alternative option of above knee amputation as her severe PAD would likely not heal a BKA. This is not urgent, her dry gangrene is stable at this point. She reports her pain is bearable and she would not like proceed at this time with amputation. She was told of signs to watch for, if infection arises or pain unmanageable we may need to be more aggressive with surgical therapy. Pt exhibited understanding, I have attempted to get ahold of her granddaughter without success thus far. Comment Review of Relevant I have reviewed the following items vicente (where applicable) has been applied. Labs Laboratory Tests Test 11/14/18 16:34 11/14/18 20:39 11/15/18 06:53 11/15/18 06:55 Glucose (Fingerstick) 109 mg/dL (70-99) 124 mg/dL (70-99) Magnesium Level 2.7 mg/dL (1.8-2.4) Hemoglobin 9.9 g/dL (12.0-15.5) Test 11/15/18 07:19 11/15/18 11:43 11/15/18 16:32 11/15/18 20:40 Glucose (Fingerstick) 92 mg/dL (70-99) 84 mg/dL (70-99) 176 mg/dL (70-99) 113 mg/dL (70-99) Test 11/16/18 04:05 11/16/18 07:17 11/16/18 10:15 Sodium Level 137 mmol/L (136-145) Potassium Level 4.3 mmol/L (3.5-5.1) Chloride Level 98 mmol/L (98-107) Carbon Dioxide Level 30 mmol/L (21-32) Anion Gap 9 (6-14) Blood Urea Nitrogen 23 mg/dL (7-20) Creatinine 6.2 mg/dL (0.6-1.0) Estimated GFR (Cockcroft-Gault) 7.7 Glucose Level 87 mg/dL (70-99) Calcium Level 9.2 mg/dL (8.5-10.1) Phosphorus Level 2.5 mg/dL (2.6-4.7) Magnesium Level 2.5 mg/dL (1.8-2.4) Albumin 2.5 g/dL (3.4-5.0) Glucose (Fingerstick) 95 mg/dL (70-99) 96 mg/dL (70-99) Laboratory Tests Test 11/15/18 11:43 11/15/18 16:32 11/15/18 20:40 11/16/18 04:05 Glucose (Fingerstick) 84 mg/dL (70-99) 176 mg/dL (70-99) 113 mg/dL (70-99) Sodium Level 137 mmol/L (136-145) Potassium Level 4.3 mmol/L (3.5-5.1) Chloride Level 98 mmol/L (98-107) Carbon Dioxide Level 30 mmol/L (21-32) Anion Gap 9 (6-14) Blood Urea Nitrogen 23 mg/dL (7-20) Creatinine 6.2 mg/dL (0.6-1.0) Estimated GFR (Cockcroft-Gault) 7.7 Glucose Level 87 mg/dL (70-99) Calcium Level 9.2 mg/dL (8.5-10.1) Phosphorus Level 2.5 mg/dL (2.6-4.7) Magnesium Level 2.5 mg/dL (1.8-2.4) Albumin 2.5 g/dL (3.4-5.0) Test 11/16/18 07:17 11/16/18 10:15 Glucose (Fingerstick) 95 mg/dL (70-99) 96 mg/dL (70-99) Medications Current Medications Fentanyl Citrate (Fentanyl 2ml Vial) 50 mcg 1X ONCE IV Last administered on at 03:35; Start 11/09/18 at 03:30; Stop 11/09/18 at 03:32; Status DC Fentanyl Citrate (Fentanyl 2ml Vial) 50 mcg PRN Q2HR PRN IV SEVERE PAIN; Start 11/09/18 at 05:45; Stop 11/10/18 at 05:44; Status DC Heparin Sodium/ Dextrose 500 ml @ 0 mls/hr CONT PRN IV SEE I/O RECORD Last administered on 11/09/18at 06:00; Start 11/09/18 at 05:45; Stop 11/09/18 at 12:40 ; Status DC Lorazepam (Ativan) 0.5 mg 1X ONCE IV Last administered on 11/09/18at 05:57; Start 11/09/18 at 06:00; Stop 11/09/18 at 06:01; Status DC Info (Anti-Coagulation Monitoring By Pharmacy) 1 each PRN DAILY PRN MC SEE COMMENTS Last administered on 11/09/18at 05:58; Start 11/09/18 at 05:45; Stop at 12:41; Status DC Iodixanol (Visipaque 320) 100 ml STK-MED ONCE .ROUTE ; Start 11/09/18 at 07:15; Stop 11/09/18 at 07:16; Status DC Lidocaine/Sodium Bicarbonate (Buffered Lidocaine 1%) 3 ml STK-MED ONCE .ROUTE ; Start 11/09/18 at 07:15; Stop 11/09/18 at 07:16; Status DC Heparin Sodium/ Sodium Chloride 1,000 ml @ As Directed STK-MED ONCE .ROUTE ; Start 11/09/18 at 07:15; Stop 11/09/18 at 07:16; Status DC Iodixanol (Visipaque 320) 100 ml STK-MED ONCE .ROUTE ; Start 11/09/18 at 07:44; Stop 11/09/18 at 07:45; Status DC Iodixanol (Visipaque 320) 50 ml STK-MED ONCE .ROUTE ; Start 11/09/18 at 07:44; Stop 11/09/18 at 07:45; Status DC Iodixanol (Visipaque 320) 100 ml STK-MED ONCE .ROUTE ; Start 11/09/18 at 07:47; Stop 11/09/18 at 07:48; Status DC Midazolam HCl (Versed) 2 mg STK-MED ONCE .ROUTE ; Start 11/09/18 at 07:48; Stop 11/09/18 at 07:49; Status DC Fentanyl Citrate (Fentanyl 2ml Vial) 100 mcg STK-MED ONCE .ROUTE ; Start at 07:48; Stop 11/09/18 at 07:49; Status DC Heparin Sodium (Porcine) (Heparin Sodium) 10,000 unit STK-MED ONCE .ROUTE ; Start 11/09/18 at 08:03; Stop 11/09/18 at 08:04; Status DC Diphenhydramine HCl (Benadryl) 50 mg STK-MED ONCE .ROUTE ; Start 11/09/18 at 08: 28; Stop 11/09/18 at 08:29; Status DC Hydromorphone HCl (Dilaudid) 2 mg 1X ONCE IV Last administered on 11/09/18at 10 :43; Start 11/09/18 at 08:30; Stop 11/09/18 at 08:31; Status DC Heparin Sodium/ Sodium Chloride 500 ml @ As Directed STK-MED ONCE .ROUTE ; Start 11/09/18 at 08:59; Stop 11/09/18 at 09:00; Status DC Iodixanol (Visipaque 320) 100 ml STK-MED ONCE .ROUTE ; Start 11/09/18 at 09:04; Stop 11/09/18 at 09:05; Status DC Heparin Sodium/ Sodium Chloride (HEPARIN for ARTERIAL LINE FLUSH) 1,000 unit 1X ONCE IART Last administered on 11/09/18 10:40; Start 11/09/18 at 09:15; Stop 11/09/18 at 09:16; Status DC Heparin Sodium/ Sodium Chloride (HEPARIN for ARTERIAL LINE FLUSH) 1,000 unit 1X ONCE IART Last administered on 11/09/18 10:40; Start 11/09/18 at 09:15; Stop 11/09/18 at 09:16; Status DC Lidocaine/Sodium Bicarbonate (Buffered Lidocaine 1%) 6 ml 1X ONCE IJ Last administered on 11/09/18 10:42; Start 11/09/18 at 09:15; Stop 11/09/18 at 09:16 ; Status DC Midazolam HCl (Versed) 2 mg 1X ONCE IV Last administered on 11/09/18 10:43; Start 11/09/18 at 09:15; Stop 11/09/18 at 09:16; Status DC Fentanyl Citrate (Fentanyl 2ml Vial) 100 mcg 1X ONCE IV Last administered on 10:44; Start 11/09/18 at 09:15; Stop 11/09/18 at 09:16; Status DC Iodixanol (Visipaque 320) 100 ml 1X ONCE IART Last administered on 11/09/18 10:44; Start 11/09/18 at 09:15; Stop 11/09/18 at 09:16; Status DC Heparin Sodium (Porcine) (Heparin Sodium) 7,500 unit 1X ONCE IV Last administered on 11/09/18 10:47; Start 11/09/18 at 09:15; Stop 11/09/18 at 09:16 ; Status DC Diphenhydramine HCl (Benadryl) 50 mg 1X ONCE IVP Last administered on 10:44; Start 11/09/18 at 09:15; Stop 11/09/18 at 09:16; Status DC Iodixanol (Visipaque 320) 50 ml 1X ONCE IART Last administered on 11/09/18 10 :45; Start 11/09/18 at 09:15; Stop 11/09/18 at 09:16; Status DC Info (CONTRAST GIVEN -- Rx MONITORING) 1 each PRN DAILY PRN MC SEE COMMENTS; Start 11/09/18 at 09:15; Stop 11/11/18 at 09:14; Status DC Heparin Sodium/ Sodium Chloride (HEPARIN for ARTERIAL LINE FLUSH) 1,000 unit 1X ONCE IV Last administered on 11/09/18 10:41; Start 11/09/18 at 09:30; Stop 11/09/18 at 09:31; Status DC Heparin Sodium/ Sodium Chloride (HEPARIN for ARTERIAL LINE FLUSH) 1,000 unit 1X ONCE IV Last administered on 11/09/18 10:42; Start 11/09/18 at 09:30; Stop 11/09/18 at 09:31; Status DC Iodixanol (Visipaque 320) 100 ml STK-MED ONCE .ROUTE ; Start 11/09/18 at 09:41; Stop 11/09/18 at 09:42; Status DC Midazolam HCl (Versed) 2 mg STK-MED ONCE .ROUTE ; Start 11/09/18 at 09:50; Stop 11/09/18 at 09:51; Status DC Heparin Sodium/ Sodium Chloride 500 ml @ As Directed STK-MED ONCE .ROUTE ; Start 11/09/18 at 09:56; Stop 11/09/18 at 09:57; Status DC Iodixanol (Visipaque 320) 50 ml STK-MED ONCE .ROUTE ; Start 11/09/18 at 10:00; Stop 11/09/18 at 10:01; Status DC Clopidogrel Bisulfate (Plavix) 300 mg 1X ONCE PO Last administered on at 18:19; Start 11/09/18 at 12:15; Stop 11/09/18 at 12:16; Status DC Clopidogrel Bisulfate (Plavix) 75 mg 1X ONCE PO Last administered on at 19:53; Start 11/10/18 at 08:00; Stop 11/10/18 at 08:01; Status DC Albuterol Sulfate (Ventolin Neb Soln) 2.5 mg PRN Q6HRS PRN INH SHORTNESS OF BREATH; Start 11/09/18 at 14:30 Amlodipine Besylate (Norvasc) 10 mg PRN DAILY PRN PO HYPERTENSION, SEE COMMENTS ; Start 11/09/18 at 14:30; Stop 11/13/18 at 11:48; Status DC Aspirin (Ecotrin) 81 mg DAILY PO Last administered on 11/16/18 09:00; Start at 09:00 Cinacalcet (Sensipar) 30 mg DAILYWSUP PO Last administered on 11/15/18 17:25; Start 11/09/18 at 17:00 Clonidine HCl (Catapres Tts-2) 1 patch WEEKLY TD Last administered on 17:00; Start 11/10/18 at 09:00 Clonidine HCl (Catapres) 0.2 mg BID PO ; Start 11/09/18 at 21:00; Status UNV Clopidogrel Bisulfate (Plavix) 75 mg DAILY PO Last administered on 11/16/18 08 :30; Start 11/11/18 at 09:00 Fentanyl (Duragesic 25mcg/ Hr Patch) 1 patch Q72H TD ; Start 11/09/18 at 15:00 Ferrous Sulfate (Feosol) 325 mg DAILY PO Last administered on 11/16/18 08:30; Start 11/09/18 at 15:00 Furosemide (Lasix) 40 mg DAILY PO Last administered on 11/16/18 08:30; Start 11/09/18 at 15:00 Sevelamer Carbonate (Renvela) 1,600 mg TIDWMEALHC PO Last administered on 08:30; Start 11/09/18 at 17:00 Calcium Acetate (Phoslo) 1,334 mg TIDWMEALS PO Last administered on 11/16/18 08:30; Start 11/09/18 at 17:00 Losartan Potassium (Cozaar) 100 mg DAILY PO Last administered on 11/16/18 08: 30; Start 11/09/18 at 15:00 Atorvastatin Calcium (Lipitor) 5 mg QHS PO Last administered on 11/15/18 20:57 ; Start 11/09/18 at 21:00 Vitamin B Complex/ Vitamin C (Hyacinth-Brad) 1 tab DAILY PO Last administered on at 08:30; Start 11/09/18 at 15:00 Sodium Chloride 1,000 ml @ 1,000 mls/hr Q1H PRN IV hypotension; Start 11/10/18 at 10:45; Stop 11/10/18 at 16:44; Status DC Sodium Chloride 1,000 ml @ 400 mls/hr Q2H30M PRN IV PATENCY; Start 11/10/18 at 10:45; Stop 11/10/18 at 22:44; Status DC Info (PHARMACY MONITORING -- do not chart) 1 each PRN DAILY PRN MC SEE COMMENTS ; Start 11/10/18 at 10:45; Stop 11/10/18 at 10:49; Status DC Info (PHARMACY MONITORING -- do not chart) 1 each PRN DAILY PRN MC SEE COMMENTS ; Start 11/10/18 at 10:45; Stop 11/15/18 at 14:38; Status DC Oxycodone/ Acetaminophen (Percocet 5/325) 1 tab PRN Q4HRS PRN PO PAIN SEVERE Last administered on 11/16/18at 08:40; Start 11/10/18 at 16:00 Multi-Ingred Cream/Lotion/Oil/ Oint (Hydrocerin Cream) 1 gasper BID TP Last administered on 11/16/18at 08:30; Start 11/11/18 at 14:00 Diclofenac Sodium (Voltaren) 1 gasper BID TP Last administered on 11/16/18at 08:32 ; Start 11/11/18 at 14:30 Sodium Chloride 1,000 ml @ 1,000 mls/hr Q1H PRN IV hypotension; Start 11/12/18 at 13:10; Stop 11/12/18 at 19:09; Status DC Albumin Human 200 ml @ 200 mls/hr 1X PRN PRN IV Hypotension; Start 11/12/18 at 13:15; Stop 11/12/18 at 19:14; Status DC Acetaminophen (Tylenol) 500 mg 1X PRN PRN PO MILD PAIN / TEMP; Start 11/12/18 at 13:15; Stop 11/13/18 at 13:14; Status DC Diphenhydramine HCl (Benadryl) 25 mg 1X PRN PRN IV ITCHING; Start 11/12/18 at 13:15; Stop 11/13/18 at 13:14; Status DC Diphenhydramine HCl (Benadryl) 25 mg 1X PRN PRN IV ITCHING; Start 11/12/18 at 13:15; Stop 11/13/18 at 13:14; Status DC Sodium Chloride 1,000 ml @ 400 mls/hr Q2H30M PRN IV PATENCY; Start 11/12/18 at 13:10; Stop 11/13/18 at 01:09; Status DC Info (PHARMACY MONITORING -- do not chart) 1 each PRN DAILY PRN MC SEE COMMENTS ; Start 11/12/18 at 13:15; Status UNV Amlodipine Besylate (Norvasc) 5 mg PRN DAILY PRN PO HYPERTENSION, SEE COMMENTS ; Start 11/13/18 at 12:00 Amino Acids/ Glycerin/ Electrolytes 1,000 ml @ 80 mls/hr [id number] IV ; Start at 12:00; Stop 11/14/18 at 13:07; Status DC Darbepoetin Filipe (Aranesp) 100 mcg WEEKLYHS SQ Last administered on 11/13/18at 20:50; Start 11/13/18 at 21:00 Magnesium Sulfate 50 ml @ 25 mls/hr PRN DAILY PRN IV for Mag < 1.7 on am labs; Start 11/13/18 at 12:00 Sodium Chloride 1,000 ml @ 1,000 mls/hr Q1H PRN IV hypotension; Start 11/15/18 at 08:42; Stop 11/15/18 at 14:41; Status DC Sodium Chloride 1,000 ml @ 400 mls/hr Q2H30M PRN IV PATENCY; Start 11/15/18 at 08:42; Stop 11/15/18 at 20:41; Status DC Info (PHARMACY MONITORING -- do not chart) 1 each PRN DAILY PRN MC SEE COMMENTS ; Start 11/15/18 at 08:45; Status UNV Info (PHARMACY MONITORING -- do not chart) 1 each PRN DAILY PRN MC SEE COMMENTS ; Start 11/15/18 at 08:45 Active Scripts Active Proair Hfa Inhaler (Albuterol Sulfate) 8.5 Gm Hfa.aer.ad 1 Puff INH PRN Q6HRS PRN 14 Days Reported FENTANYL 25mcg/hr (Fentanyl) 1 Each Patch.td72 1 Patch TD Q72H Clopidogrel (Clopidogrel Bisulfate) 75 Mg Tablet 1 Tab PO DAILY Catapres-Tts 2 (Clonidine) 1 Each Patch.tdwk 1 Each TD WEEKLY Clonidine Hcl 0.2 Mg Tablet 0.2 Mg PO BID Dialyvite Manvel D Tablet (Multivitamin, Min Cmb#25/Fa/D3) 1 Each Tablet 1 Each PO DAILY Renvela (Sevelamer Carbonate) 800 Mg Tablet 2 Tab PO TIDWMEALHC Sensipar (Cinacalcet Hcl) 30 Mg Tablet 1 Tab PO DAILYWSUP Calcium Acetate 667 Mg Tablet 1,334 Mg PO TIDWMEALS Lovastatin 10 Mg Tablet 10 Mg PO HS Losartan Potassium 100 Mg Tablet 100 Mg PO DAILY Amlodipine Besylate 10 Mg Tablet 10 Mg PO PRN DAILY PRN Ferrous Sulfate 325 Mg Tablet 1 Tab PO DAILY Lasix (Furosemide) 40 Mg Tablet 1 Tab PO DAILY Aspir 81 (Aspirin) 81 Mg Tablet. 1 Tab PO DAILY Vitals/I & O Vital Sign - Last 24 Hours 11/15/18 11/15/18 11/15/18 11/15/18 11:54 13:37 13:39 15:00 Temp 98.4 97.9 98.4 97.9 Pulse 75 84 84 80 Resp 17 17 B/P (MAP) 133/64 (87) 116/46 116/46 (69) 140/49 (79) Pulse Ox 92 95 O2 Delivery Room Air Room Air Room Air 11/15/18 11/15/18 11/15/18 11/15/18 17:24 18:44 19:00 20:00 Temp 98.7 98.7 Pulse 87 Resp 18 B/P (MAP) 114/42 (66) Pulse Ox 95 100 O2 Delivery Room Air Room Air Room Air O2 Flow Rate 2.0 11/15/18 11/16/18 11/16/18 11/16/18 22:50 02:59 07:00 08:15 Temp 99.4 98.7 98.1 99.4 98.7 98.1 Pulse 84 82 77 Resp 18 18 18 B/P (MAP) 116/41 (66) 110/35 (60) 119/48 (71) Pulse Ox 94 96 98 O2 Delivery Room Air Room Air Room Air Room Air 11/16/18 11/16/18 11/16/18 08:30 08:40 10:16 Pulse 82 B/P (MAP) 110/35 O2 Delivery Room Air Room Air Intake and Output 11/15/18 11/15/18 11/16/18 14:59 22:59 06:59 Intake Total 260 ml 0 ml Output Total 0 ml Balance 260 ml 0 ml EARNEST HAWKINS Nov 16, 2018 11:49
--- NOTE | 2018-11-16 11:58 | NUR ---
Discharge report called to [facility] - Brad RN. Patient was taken off unit by Wheelchair to transport via [facility] wheelchair van transportation to [facility]. Patient's IV and heart monitor removed 2 days ago.
== END 2018-11-16 12:00 | DRG 252 ==
LOC: ER 02:30 → 5 SOUTH 05:42 → 5 NORTH 06:28
PROVIDERS: ADMIT Internal Medicine; ATTEND Internal Medicine
PROC: 047H3Z1 Dilation of Right External Iliac Artery using Drug-Coated Balloon, Percutaneous Approach (ICD-10-PCS; 2018-11-09)
PROC: B51F1ZZ Fluoroscopy of Right Pelvic (Iliac) Veins using Low Osmolar Contrast (ICD-10-PCS; 2018-11-09)
PROC: B4101ZZ Fluoroscopy of Abdominal Aorta using Low Osmolar Contrast (ICD-10-PCS; 2018-11-09)
PROC: B31J1ZZ Fluoroscopy of Left Upper Extremity Arteries using Low Osmolar Contrast (ICD-10-PCS; 2018-11-09)
PROC: B31G1ZZ Fluoroscopy of Bilateral Vertebral Arteries using Low Osmolar Contrast (ICD-10-PCS; 2018-11-09)
PROC: 03743DZ Dilation of Left Subclavian Artery with Intraluminal Device, Percutaneous Approach (ICD-10-PCS; 2018-11-09)
PROC: 5A1D70Z Performance of Urinary Filtration, Intermittent, Less than 6 Hours Per Day (ICD-10-PCS; principal; 2018-11-10)
PROC: 5A1D70Z Performance of Urinary Filtration, Intermittent, Less than 6 Hours Per Day (ICD-10-PCS; 2018-11-12)
PROC: 5A1D70Z Performance of Urinary Filtration, Intermittent, Less than 6 Hours Per Day (ICD-10-PCS; 2018-11-15)
DX: T82.868A Thrombosis due to vascular prosthetic devices, implants and grafts, initial encounter (principal); N18.6 End stage renal disease; I12.0 Hypertensive chronic kidney disease with stage 5 chronic kidney disease or end stage renal disease; I82.B12 Acute embolism and thrombosis of left subclavian vein; E11.52 Type 2 diabetes mellitus with diabetic peripheral angiopathy with gangrene; G93.40 Encephalopathy, unspecified; Z99.2 Dependence on renal dialysis; E11.51 Type 2 diabetes mellitus with diabetic peripheral angiopathy without gangrene; E11.22 Type 2 diabetes mellitus with diabetic chronic kidney disease; I70.201 Unspecified atherosclerosis of native arteries of extremities, right leg; E78.5 Hyperlipidemia, unspecified; M17.0 Bilateral primary osteoarthritis of knee; D63.1 Anemia in chronic kidney disease; I25.10 Atherosclerotic heart disease of native coronary artery without angina pectoris; E66.9 Obesity, unspecified; I70.8 Atherosclerosis of other arteries; I99.8 Other disorder of circulatory system; Y71.2 Prosthetic and other implants, materials and accessory cardiovascular devices associated with adverse incidents; Z79.02 Long term (current) use of antithrombotics/antiplatelets; Z79.82 Long term (current) use of aspirin; Z79.899 Other long term (current) drug therapy; Z83.3 Family history of diabetes mellitus; Z86.711 Personal history of pulmonary embolism; Z86.718 Personal history of other venous thrombosis and embolism; Z68.32 Body mass index [BMI] 32.0-32.9, adult; I70.208 Unspecified atherosclerosis of native arteries of extremities, other extremity
CPT/HCPCS: 36415; 36901; 37221; 37236; 71045; 73620; 75605; 75710; 76937; 80053; 80069; 82962; 83735; 84484; 85007; 85018; 85025; 85610; 93005; 93931; 96365; 96375; 99152; 99153; A4215; C1725; C1760; C1769; C1892; C1894; C2623; J0881; J1170; J1200; J1644; J2060; J2250; J3010; Q9967; 97110; 97116; 97530; 97535; 99285-25

== ENCOUNTER 2018-11-27 12:51 | Emergency (ER) | payer MEDICARE, OTHER ==
[~2018-11-27] VITALS: Ht 162.6 cm; Wt 63.5 kg
--- NOTE | 2018-11-27 13:20 | PHYS DOC ---
Past Medical History Past Medical History: Diabetes-Type II, Hypertension, Renal Disease, Renal Failure, Vascular Disease Additional Past Medical Histor: PVD,OBESITY Past Surgical History: Other Additional Past Surgical Histo: NON CANCER "OVARIAN MASS" , dialysis shunt placement Alcohol Use: None Drug Use: None Adult General Chief Complaint Chief Complaint: ALTERED MENTAL STATUS HPI HPI Patient is a 88 year old female who presents with a change in mental status for the past 2 days. Patient lives in assisted care facility. They deny any fall or trauma. Patient did get dialysis yesterday for her known end-stage renal disease. History is limited from the patient due to her confusion and altered mental status.[] Review of Systems Review of Systems Unable to obtain from patient due to altered mental status All other systems were reviewed and found to be within normal limits, except as documented in this note. Current Medications Current Medications Current Medications Medications (Trade) Dose Ordered Sig/Virgil Start Time Stop Time Status Last Admin Dose Admin Aspirin (Aspirin) 300 mg 1X ONCE 11/27/18 14:45 11/27/18 14:46 DC 11/27/18 15:16 300 MG Allergies Allergies Allergies Coded Allergies Type Severity Reaction Last Updated Verified No Known Drug Allergies 07/14/17 No Physical Exam Physical Exam Constitutional: Well developed, well nourished, no acute distress, non-toxic appearance. [] HENT: Normocephalic, atraumatic, bilateral external ears normal, oropharynx moist, no oral exudates, nose normal. [] Eyes: PERRLA, EOMI, conjunctiva normal, no discharge. [] Neck: Normal range of motion, no tenderness, supple, no stridor. [] Cardiovascular:Heart rate regular rhythm, no murmur [] Lungs & Thorax: Bilateral breath sounds clear to auscultation [] Abdomen: Bowel sounds normal, soft, no tenderness, no masses, no pulsatile masses. [] Skin: Warm, dry, no erythema, no rash. [] Back: No tenderness, no CVA tenderness. [] Extremities: No tenderness, no cyanosis, no clubbing, ROM intact, no edema. [] Neurologic: Alert and oriented to person, does not follow commands but moves all 4 extremities. [] Psychologic: Unable to assess. [] Current Patient Data Vital Signs Vital Signs Date Time Temp Pulse Resp B/P (MAP) Pulse Ox O2 Delivery O2 Flow Rate FiO2 11/27/18 15:00 60 18 100 11/27/18 13:00 97.8 121/59 (79) Nasal Cannula 2.0 97.8 Lab Values Laboratory Tests Test 11/27/18 14:05 White Blood Count 8.0 x10^3/uL (4.0-11.0) Red Blood Count 3.16 x10^6/uL (3.50-5.40) L Hemoglobin 9.1 g/dL (12.0-15.5) L Hematocrit 28.5 % (36.0-47.0) L Mean Corpuscular Volume 90 fL (79-100) Mean Corpuscular Hemoglobin 29 pg (25-35) Mean Corpuscular Hemoglobin Concent 32 g/dL (31-37) Red Cell Distribution Width 17.7 % (11.5-14.5) H Platelet Count 367 x10^3/uL (140-400) Neutrophils (%) (Auto) 75 % (31-73) H Lymphocytes (%) (Auto) 12 % (24-48) L Monocytes (%) (Auto) 11 % (0-9) H Eosinophils (%) (Auto) 1 % (0-3) Basophils (%) (Auto) 1 % (0-3) Neutrophils # (Auto) 6.0 x10^3uL (1.8-7.7) Lymphocytes # (Auto) 0.9 x10^3/uL (1.0-4.8) L Monocytes # (Auto) 0.9 x10^3/uL (0.0-1.1) Eosinophils # (Auto) 0.1 x10^3/uL (0.0-0.7) Basophils # (Auto) 0.0 x10^3/uL (0.0-0.2) Prothrombin Time 16.2 SEC (11.7-14.0) H Prothrombin Time INR 1.3 (0.8-1.1) H Sodium Level 133 mmol/L (136-145) L Potassium Level 4.6 mmol/L (3.5-5.1) Chloride Level 94 mmol/L (98-107) L Carbon Dioxide Level 29 mmol/L (21-32) Anion Gap 10 (6-14) Blood Urea Nitrogen 23 mg/dL (7-20) H Creatinine 5.2 mg/dL (0.6-1.0) H Estimated GFR (Cockcroft-Gault) 9.5 BUN/Creatinine Ratio 4 (6-20) L Glucose Level 70 mg/dL (70-99) Calcium Level 9.6 mg/dL (8.5-10.1) Magnesium Level 2.2 mg/dL (1.8-2.4) Total Bilirubin 0.4 mg/dL (0.2-1.0) Aspartate Amino Transferase (AST) 19 U/L (15-37) Alanine Aminotransferase (ALT) 6 U/L (14-59) L Alkaline Phosphatase 143 U/L (46-116) H Ammonia < 10 mcmol/L (11-34) L Troponin I Quantitative 0.049 ng/mL (0.000-0.055) IA-Ysc-V-Type Natriuretic Peptide 08717 pg/mL (0-449) H Total Protein 6.5 g/dL (6.4-8.2) Albumin 2.5 g/dL (3.4-5.0) L Albumin/Globulin Ratio 0.6 (1.0-1.7) L Laboratory Tests 11/27/18 14:05 Laboratory Tests 11/27/18 14:05 EKG EKG EKG shows sinus rhythm at 62 bpm, rightward axis at 115, QTC of 437 ms, no ST elevations. Interpreted by me at 1303[] Radiology/Procedures Radiology/Procedures CT HEAD WO CONTRAST Indication: ams Exposure: One or more of the following individualized dose reduction techniques were utilized for this examination: 1. Automated exposure control 2. Adjustment of the mA and/or kV according to patient size 3. Use of iterative reconstruction technique. Technique: Standard imaging without intravenous contrast. FINDINGS: Mild parenchymal hypodensity in the right parieto-occipital junction area, possibly extending to the temporal region extending from the posterior right lateral ventricle to the cortical surface. This could represent a recent infarction. No evidence of acute infarct cranial hemorrhage, mass effect, midline shift or abnormal extra-axial fluid collection. Low-density in the white matter bilaterally, a nonspecific finding, but which is commonly due to chronic small vessel ischemic disease in a patient of this age.. Mild prominence of ventricles and sulci compatible with atrophy. Orbits appear unremarkable. Partially visualized paranasal sinuses are clear. No acute skull abnormality. IMPRESSION: Mild hypodensity in the right parietal-occipital region, possibly temporal as well, concerning for a recent infarction. Correlate clinically. MR could be of benefit for further evaluation as indicated. PORTABLE CHEST 1V History: AMS STARTING X1 DAY AGO. Comparison with 11/09/2018. Heart size remains enlarged. Atherosclerotic aortic calcification again seen. No evidence of pneumothorax. No large effusion. No focal airspace consolidation. Left endovascular stent is identified in the subclavian region. IMPRESSION: Heart size remains enlarged. No evidence of consolidating infiltrate.[] Course & Med Decision Making Course & Med Decision Making Pertinent Labs and Imaging studies reviewed. (See chart for details) [ED course: Patient arrived, was placed in bed, and tolerated exam well. She was transported to and from [place] without any complications. I was notified by the radiologist of the abnormal CT findings. Patient was admitted to the hospitalist service. She was given rectal aspirin due to concern about her swallowing. At approximately 1600, family members are present and they become verbally argumentative and demanding an MRI and patient to be transferred to . Attempted to discuss what was going on with that, and explaining that an emergent MRI was not indicated since the symptoms have been going on for 2 days , one family member interrupted and said, "she hasn't been able to move her arm for 7 days and I'm going to aura you." Again attempted to explain that this MRI could be performed while she is admitted because it is not changing treatment acutely, and family became adamant that she be transferred to so contact was made with 's transfer service. Medical decision making: Given that the symptoms have been going on for anywhere from 2-7 days she does not need lytic criteria. There are no significant electrolyte abnormalities. No evidence of pneumonia, no evidence of hyperammonemia.] Dragon Disclaimer Dragon Disclaimer This electronic medical record was generated, in whole or in part, using a voice recognition dictation system. Departure Departure Impression: Primary Impression: Stroke Additional Impressions: Mental status alteration End stage renal disease Disposition: 05 TRANSFER OTHER Admitting Physician: Other Condition: IMPROVED Referrals: URMILA HAGER MD (PCP) Problem Qualifiers Primary Impression: Stroke CVA mechanism: unspecified Qualified Codes: I63.9 - Cerebral infarction, unspecified Additional Impressions: Mental status alteration Altered mental status type: unspecified Qualified Codes: R41.82 - Altered mental status, unspecified SENG MUHAMMAD 9, 2019 13:20
--- NOTE | 2018-11-27 14:11 | RAD ---
PORTABLE CHEST 1V History: AMS STARTING X1 DAY AGO. Comparison with 11/09/2018. Heart size remains enlarged. Atherosclerotic aortic calcification again seen. No evidence of pneumothorax. No large effusion. No focal airspace consolidation. Left endovascular stent is identified in the subclavian region. IMPRESSION: Heart size remains enlarged. No evidence of consolidating infiltrate. Electronically signed by: Reymundo Adrian MD (11/27/2018 2:08 PM) [facility]
--- NOTE | 2018-11-27 14:11 | RAD ---
CT HEAD WO CONTRAST Indication: ams Exposure: One or more of the following individualized dose reduction techniques were utilized for this examination: 1. Automated exposure control 2. Adjustment of the mA and/or kV according to patient size 3. Use of iterative reconstruction technique. Technique: Standard imaging without intravenous contrast. FINDINGS: Mild parenchymal hypodensity in the right parieto-occipital junction area, possibly extending to the temporal region extending from the posterior right lateral ventricle to the cortical surface. This could represent a recent infarction. No evidence of acute infarct cranial hemorrhage, mass effect, midline shift or abnormal extra-axial fluid collection. Low-density in the white matter bilaterally, a nonspecific finding, but which is commonly due to chronic small vessel ischemic disease in a patient of this age.. Mild prominence of ventricles and sulci compatible with atrophy. Orbits appear unremarkable. Partially visualized paranasal sinuses are clear. No acute skull abnormality. IMPRESSION: Mild hypodensity in the right parietal-occipital region, possibly temporal as well, concerning for a recent infarction. Correlate clinically. MR could be of benefit for further evaluation as indicated. FOR INTERNAL CODING PURPOSES Critical result: Findings discussed with Dr. Maki in the emergency room at 11/27/2018 2:04 PM. RESULT CODE: (C) Electronically signed by: Reymundo Adrian MD (11/27/2018 2:06 PM) [facility]
[2018-11-27 14:17] LABS: BASO % 1 % (0-3); EOS # 0.1 x10^3/uL (0.0-0.7); EOS % 1 % (0-3); HEMATOCRIT 28.5 % (36.0-47.0); HEMOGLOBIN 9.1 g/dL (12.0-15.5); LYMPH # 0.9 x10^3/uL (1.0-4.8); LYMPH % 12 % (24-48); MEAN CORPUSCULAR HEMOGLOBIN 29 pg (25-35); MEAN CORPUSCULAR HGB CONC 32 g/dL (31-37); MEAN CORPUSCULAR VOLUME 90 fL (79-100); MONO # 0.9 x10^3/uL (0.0-1.1); MONO % 11 % (0-9); NEUT % 75 % (31-73); PLATELET COUNT 367 x10^3/uL (140-400); RED BLOOD COUNT 3.16 x10^6/uL (3.50-5.40); RED CELL DISTRIBUTION WIDTH 17.7 % (11.5-14.5)
[2018-11-27 14:26] LABS: PROTHROMBIN TIME PATIENT 16.2 SEC (11.7-14.0)
--- NOTE | 2018-11-27 14:37 | PDOC1 ---
History and Physical Date of Admission Date of Admission DATE: 11/27/18 TIME: 14:37 Identification/Chief Complaint Chief Complaint Altered Mental status Source Source: Caregiver, Chart review History of Present Illness History of Present Illness 88 yr old AA female w/ PMHx ESRD on dialysis, CHF, COPD, PVD, DM, CAD who presents with a change in mental status for the past 2 days. Patient lives in assisted care facility. They deny any fall or trauma. Patient did get dialysis yesterday for her known end-stage renal disease. History is limited from the patient due to her confusion and altered mental status. She has been seen recently for hyperkalemia, hypoglycemia, and AV graft malfunction and has been recovering in local SNF where her change in mental status was noted. Last known baseline normal by family was about 6pm on 11/25/18 per SNF. Past Medical History Cardiovascular: CAD, HTN, Hyperlipidemia, Other Pulmonary: Pulmonary embolus CENTRAL NERVOUS SYSTEM: Other GI: No pertinent hx Heme/Onc: Anemia NOS Hepatobiliary: No pertinent hx Psych: No pertinent hx Rheumatologic: No pertinent hx Infectious disease: No pertinent hx Renal/: Chronic renal failure Endocrine: Diabetes Past Surgical History Past Surgical History: Other Family History Family History: Family History Unknown Social History ALCOHOL: none Drugs: None Current Medications Current Medications Active Scripts Active Proair Hfa Inhaler (Albuterol Sulfate) 8.5 Gm Hfa.aer.ad 1 Puff INH PRN Q6HRS PRN 14 Days Reported FENTANYL 25mcg/hr (Fentanyl) 1 Each Patch.td72 1 Patch TD Q72H Clopidogrel (Clopidogrel Bisulfate) 75 Mg Tablet 1 Tab PO DAILY Catapres-Tts 2 (Clonidine) 1 Each Patch.tdwk 1 Each TD WEEKLY Clonidine Hcl 0.2 Mg Tablet 0.2 Mg PO BID Dialyvite Mcconnico D Tablet (Multivitamin, Min Cmb#25/Fa/D3) 1 Each Tablet 1 Each PO DAILY Renvela (Sevelamer Carbonate) 800 Mg Tablet 2 Tab PO TIDWMEALHC Sensipar (Cinacalcet Hcl) 30 Mg Tablet 1 Tab PO DAILYWSUP Calcium Acetate 667 Mg Tablet 1,334 Mg PO TIDWMEALS Lovastatin 10 Mg Tablet 10 Mg PO HS Losartan Potassium 100 Mg Tablet 100 Mg PO DAILY Amlodipine Besylate 10 Mg Tablet 10 Mg PO PRN DAILY PRN Ferrous Sulfate 325 Mg Tablet 1 Tab PO DAILY Lasix (Furosemide) 40 Mg Tablet 1 Tab PO DAILY Aspir 81 (Aspirin) 81 Mg Tablet. 1 Tab PO DAILY Allergies Allergies: Coded Allergies: No Known Drug Allergies (Unverified , 07/14/17) Physical Exam General: mild distress HEENT: Atraumatic, PERRLA, EOMI, Mucous membr. moist/pink Lungs: Clear to auscultation, Normal air movement Heart: S1S2, RRR Abdomen: Normal bowel sounds, Soft, No tenderness, No hepatosplenomegaly, No masses Extremities: No clubbing, No cyanosis, Other (RLE wound) Skin: Other (Wound as above, dry skin) Neuro: Other (Left side weak and some increased right leg reflexes, not following commands) Vitals Vitals Vital Signs Date Time Temp Pulse Resp B/P (MAP) Pulse Ox O2 Delivery O2 Flow Rate FiO2 11/27/18 13:00 97.8 60 18 121/59 (79) 91 Nasal Cannula 2.0 97.8 Labs Labs Laboratory Tests Test 11/27/18 14:05 White Blood Count 8.0 x10^3/uL (4.0-11.0) Red Blood Count 3.16 x10^6/uL (3.50-5.40) Hemoglobin 9.1 g/dL (12.0-15.5) Hematocrit 28.5 % (36.0-47.0) Mean Corpuscular Volume 90 fL (79-100) Mean Corpuscular Hemoglobin 29 pg (25-35) Mean Corpuscular Hemoglobin Concent 32 g/dL (31-37) Red Cell Distribution Width 17.7 % (11.5-14.5) Platelet Count 367 x10^3/uL (140-400) Neutrophils (%) (Auto) 75 % (31-73) Lymphocytes (%) (Auto) 12 % (24-48) Monocytes (%) (Auto) 11 % (0-9) Eosinophils (%) (Auto) 1 % (0-3) Basophils (%) (Auto) 1 % (0-3) Neutrophils # (Auto) 6.0 x10^3uL (1.8-7.7) Lymphocytes # (Auto) 0.9 x10^3/uL (1.0-4.8) Monocytes # (Auto) 0.9 x10^3/uL (0.0-1.1) Eosinophils # (Auto) 0.1 x10^3/uL (0.0-0.7) Basophils # (Auto) 0.0 x10^3/uL (0.0-0.2) Prothrombin Time 16.2 SEC (11.7-14.0) Prothromb Time International Ratio 1.3 (0.8-1.1) Ammonia < 10 mcmol/L (11-34) Troponin I Quantitative 0.049 ng/mL (0.000-0.055) Laboratory Tests Test 11/27/18 14:05 White Blood Count 8.0 x10^3/uL (4.0-11.0) Red Blood Count 3.16 x10^6/uL (3.50-5.40) Hemoglobin 9.1 g/dL (12.0-15.5) Hematocrit 28.5 % (36.0-47.0) Mean Corpuscular Volume 90 fL (79-100) Mean Corpuscular Hemoglobin 29 pg (25-35) Mean Corpuscular Hemoglobin Concent 32 g/dL (31-37) Red Cell Distribution Width 17.7 % (11.5-14.5) Platelet Count 367 x10^3/uL (140-400) Neutrophils (%) (Auto) 75 % (31-73) Lymphocytes (%) (Auto) 12 % (24-48) Monocytes (%) (Auto) 11 % (0-9) Eosinophils (%) (Auto) 1 % (0-3) Basophils (%) (Auto) 1 % (0-3) Neutrophils # (Auto) 6.0 x10^3uL (1.8-7.7) Lymphocytes # (Auto) 0.9 x10^3/uL (1.0-4.8) Monocytes # (Auto) 0.9 x10^3/uL (0.0-1.1) Eosinophils # (Auto) 0.1 x10^3/uL (0.0-0.7) Basophils # (Auto) 0.0 x10^3/uL (0.0-0.2) Prothrombin Time 16.2 SEC (11.7-14.0) Prothromb Time International Ratio 1.3 (0.8-1.1) Ammonia < 10 mcmol/L (11-34) Troponin I Quantitative 0.049 ng/mL (0.000-0.055) Images Images CT Head - Mild hypodensity in the right parietal-occipital region, possibly temporal as well, concerning for a recent infarction. Correlate clinically. MR could be of benefit for further evaluation as indicated. VTE Prophylaxis Ordered VTE Prophylaxis Devices: No VTE Pharmacological Prophylaxi: Yes Assessment/Plan Assessment/Plan A/P: Acute encephalopathy - likely 2/2 CVA. Will treat Acute CVA - already on ASA and plavix, will add statin. Consult neurology Edema of both lower legs, right sided CHF, Diastolic CHF, Mild pulmonary vascular congestion ESRD on dialysis - will cont inpatient Secondary pulmonary hypertension - needs UF Anemia - of chronic disease PVD - seen by vascular surgery recently COPD - will order nebs if necessary Rt leg chronic wound Moderate diffuse arterial disease of the left lower extremity without any focal high-grade stenosis. 11/05/2017 Extensive coronary artery calcification by ct 2014 DM2 with hypoglycemic episode - adjusted insulin Anemia - of chronic renal disease. monitor FEN - ADAT to renal diet, needs [place] [employer]ATER eval PPX - heparin FULL CODE Inpatient for CVA, at least 2 midnights GEORGIE SLATER MD Nov 27, 2018 14:37
[2018-11-27 14:43] LABS: CALCIUM 9.6 mg/dL (8.5-10.1); CREATININE 5.2 mg/dL (0.6-1.0); GFR 9.5; POTASSIUM 4.6 mmol/L (3.5-5.1)
[2018-11-27] MEDS ORDERED: ASPIRIN RECTAL 300 MG SUPP. PR ONE (14:45)
[2018-11-27 14:49] LABS: ALBUMIN 2.5 g/dL (3.4-5.0); ALBUMIN/GLOBULIN RATIO 0.6 (1.0-1.7); MAGNESIUM 2.2 mg/dL (1.8-2.4); TOTAL BILIRUBIN 0.4 mg/dL (0.2-1.0); TOTAL PROTEIN 6.5 g/dL (6.4-8.2)
[2018-11-27] MEDS ORDERED: ALBUTEROL SULFATE 2.5 MG/3 ML NEBU. INH PRN (17:30)
[2018-11-27] MEDS ORDERED: SODIUM CHLORIDE IV ONE (17:30)
[2018-11-27] MEDS ORDERED: DEXTROSE 10% IV ONE (17:30)
[2018-11-27] MEDS ORDERED: HYDROcodone/APAP 5/325MG 1 TAB TABLET PO PRN (17:30)
[2018-11-27] MEDS ORDERED: ONDANSETRON PF 4 MG/2 ML VIAL. IV PRN (17:30)
[2018-11-27] MEDS ORDERED: MAGNESIUM HYDROXIDE 2,400 MG/30 ML ORAL.SUSP. PO PRN (17:30)
[2018-11-27] MEDS ORDERED: BISACODYL 10 MG SUPP.RECT. PR PRN (17:30)
[2018-11-27] MEDS ORDERED: LACTULOSE 20 GM/30 ML SOLUTION. PO PRN (17:30)
[2018-11-27] MEDS ORDERED: ACETAMINOPHEN 325 MG TABLET. PO PRN (17:30)
[2018-11-27] MEDS ORDERED: amLODIPine BESYLATE 10 MG TABLET PO PRN (17:49)
[2018-11-27 18:00] VITALS: BP 136/61
[2018-11-27] MEDS ORDERED: CINACALCET HCL 30 MG TABLET PO SCH (18:00)
[2018-11-27] MEDS ORDERED: SEVELAMER CARBONATE 800 MG TABLET. PO SCH (18:00)
[2018-11-27] MEDS ORDERED: HEPARIN for SUB-Q USE 5,000 UNIT/ML VIAL. SQ SCH (21:00)
[2018-11-27] MEDS ORDERED: SENNOSIDES/DOCUSATE 8.6/50MG TABLET. PO SCH (21:00)
[2018-11-27] MEDS ORDERED: ATORVASTATIN CALCIUM 40 MG TABLET. PO SCH (21:00)
[2018-11-27] MEDS ORDERED: cloNIDine HCL 0.2 MG TABLET PO SCH (21:00)
--- NOTE | 2018-11-28 08:41 | EKG ---
[facility] [address] [place] [address] Test Date: 2018-11-27 Test Time: 12:58:21 Pat Name: JAVON STYLES Department: Room: 648 1 Gender: F Track Service Person: : 1930 Requested By: SENG MUHAMMAD Order Number: [id number] Reading MD: Jaciel Cotton MD Measurements Intervals [place] Rate: 62 P: 132 NC: 204 QRS: 115 QRSD: 102 T: 103 QT: 428 QTc: 437 Interpretive Statements SINUS RHYTHM LIMB LEAD MISPLACEMENT Electronically Signed On 12-07-2018 22:02:48 CDT by Jaciel Cotton MD
[2018-11-28] MEDS ORDERED: ASPIRIN ENTERIC COATED 81 MG TABLET.DR. PO SCH (09:00)
[2018-11-28] MEDS ORDERED: fentaNYL 25MCG/HR PATCH 1 PATCH PATCH.TD72 TD SCH (09:00)
[2018-11-28] MEDS ORDERED: CLOPIDOGREL BISULFATE 75 MG TABLET PO SCH (09:00)
[2018-12-01] MEDS ORDERED: cloNIDine TTS-2 1 PATCH PATCH TD SCH (09:00)
--- NOTE | 2018-12-02 07:55 | NUR ---
Late entry made to Medical Record. IV Stop time transcribed from eMAR to IV spreadsheet
== END 2018-11-27 18:06 | disposition short-term general hospital (02) ==
LOC: ER 12:51 → 6 SOUTH 15:13 → UNDOADMIN 15:13 → UNDODISIN 17:00 → ER 18:06
DX: I63.9 Cerebral infarction, unspecified (principal); R41.82 Altered mental status, unspecified; E11.22 Type 2 diabetes mellitus with diabetic chronic kidney disease; I12.0 Hypertensive chronic kidney disease with stage 5 chronic kidney disease or end stage renal disease; N18.6 End stage renal disease; Z99.2 Dependence on renal dialysis
CPT/HCPCS: 36415; 70450; 71045; 80053; 82140; 82962; 83735; 83880; 84484; 85025; 85610; 87040; 87086; 93005; 96360; 99285-25